=== PATIENT | female | born 1945 | race Caucasian/White ===

== ENCOUNTER 2016-11-30 21:35 | Inpatient (IN) | payer MEDICARE ==
[2016-11-30 21:52] VITALS: BMI 24.7
[2016-11-30 23:36] LABS: BASO # 0.03 K/mm3 (0.0-2.0); BASO % 0.8 % (0.0-3.0); EOS % 0.3 % (1.5-5.0); GRAN # 2.07 (1.4-6.5); GRAN % 55.6 % (50.0-68.0); HEMATOCRIT 41.3 % (36.0-48.0); LYMPH # 1.2 (1.2-3.4); MEAN CELL VOLUME 96.7 fl (80.0-105.0); MEAN CORPUSCULAR HGB CONC 35.1 g/dl (31.0-37.0); MEAN PLATELET VOLUME 10.7 fl (7.0-11.0); MONO # 0.4 (0.1-0.6); MONO % 11.3 % (1.0-6.0); RED CELL DISTRIBUTION WIDTH 13.4 % (11.5-14.5); WHITE BLOOD COUNT 3.7 10^3/ul (4.5-11.0)
[2016-11-30 23:41] LABS: ALB/GLOB RATIO 1.3 (1.1-1.8); ALKALINE PHOSPHATASE 135 U/L (38-126); ALT/SGPT 76 U/L (7-56); AST/SGOT 211 U/L (14-36); BILIRUBIN,TOTAL 1.1 mg/dL (0.2-1.3); BLOOD UREA NITROGEN 8 mg/dL (7-21); CALCIUM 8.5 mg/dL (8.4-10.5); CARBON DIOXIDE 30 mmol/L (21-33); CHLORIDE 89 mmol/L (98-107); GFR AFRICAN-AMERICAN > 60; GLUCOSE,RANDOM 98 mg/dL (70-110); LIPASE 136 U/L (23-300); POTASSIUM 4.1 mmol/L (3.6-5.0); SODIUM 131 mmol/L (132-148); TOTAL PROTEIN 7.5 g/dL (5.8-8.3)
[2016-11-30 23:58] LABS: TROPONIN I < 0.01 ng/mL
[2016-12-01] MEDS: Multivitamin (MVI) 10 ML, Thiamine 100 MG, Folic Acid 1 MG in Sodium Chloride 0.9% 1,00... IV ONE ×2 (00:50→06:47)
--- NOTE | 2016-12-01 00:52 | ED PDOC ---
Arrival/HPI - General Historian: Patient - History of Present Illness Time/Duration: 1 week Symptom Onset: Gradual Symptom Course: Unchanged Activities at Onset: Rest Context: Home - General Chief Complaint: Medical Clearance Time Seen by Provider: 11/30/16 22:08 - History of Present Illness Narrative History of Present Illness (Text): 12/01/16 22:10 Quin Sam is a 71 year old female who presents to the emergency department s/p cholecystectomy complaining of depression for 1 week. Patient states that she has a history of alcoholism in the past but stopped drinking when she drank so much that she developed the beginning stages of cirrhosis. Patient started drinking again everyday for a week and has not been eating. Patient reports hearing voices consisting of voices laughing at her. Patient adds that she experiences 1 week of epigastric pain with nausea as well as multiple episodes of diarrhea. Patient says that she thinks she saw blood during her bowel movements but is not entirely sure. Patient reports that she feels overall weak and anxious. Patient denies any suicidal ideation, homicidal ideation, chest pain, shortness of breath, fever, chills, vomiting, urinary symptoms, or any other complaint at this time. (Sacha JEFFERSON,Bonita Andersen) Past Medical History - Provider Review Nursing Documentation Reviewed: Yes - Cardiac Hx Hypertension: Yes - Pulmonary Hx Respiratory Disorders: No - HEENT Hx Glaucoma: Yes - Hematological/Oncological Hx Blood Transfusions: No - Musculoskeletal/Rheumatological Hx Falls: No Hx Unsteady Gait: Yes (R/T alcohol intake) - Gastrointestinal Hx Gastrointestinal Disorders: (colitis gastritis) - Psychiatric Hx Depression: Yes Hx Emotional Abuse: No Hx Physical Abuse: No Hx Substance Use: No - Surgical History Hx Cholecystectomy: Yes - Anesthesia Hx Anesthesia Reactions: No Hx Malignant Hyperthermia: No - Suicidal Assessment Feels Threatened In Home Enviroment: No Family/Social History - Physician Review Nursing Documentation Reviewed: Yes Family/Social History: No Known Family HX Smoking Status: Never Smoked Hx Alcohol Use: Yes Amount per day: 2 Hx Substance Use: No Substance used: ALCOHOL Hx Substance Use Treatment: No Allergies/Home Meds Allergies/Adverse Reactions: Allergies No Known Allergies Allergy (Verified 09/15/13 13:31) Home Medications: Home Meds Medication Instructions Recorded Confirmed Lisinopril/Hydrochlorothiazide 1 each PO DAILY 12/01/16 12/01/16 [Lisinopril-Hctz 20-12.5 mg Tab] Review of Systems - Physician Review All systems were reviewed & negative as marked: Yes - Review of Systems Constitutional: absent: Fevers, Night Sweats Eyes: absent: Vision Changes ENT: absent: Hearing Changes Respiratory: absent: SOB Cardiovascular: absent: Chest Pain Gastrointestinal: Abdominal Pain (epigastric) Genitourinary Female: absent: Dysuria Musculoskeletal: absent: Arthralgias Skin: absent: Rash Neurological: absent: Headache Endocrine: absent: Diaphoresis Hemo/Lymphatic: absent: Adenopathy Psychiatric: Depression Physical Exam Vital Signs Reviewed: Yes Temperature: Afebrile Blood Pressure: Normal Pulse: Tachycardic Respiratory Rate: Normal Appearance: Positive for: Other (Anxious, mildly distressed) Pain Distress: None Mental Status: Positive for: Alert and Oriented X 3 - Systems Exam Head: Present: Atraumatic, Normocephalic Mouth: Present: Dry Respiratory/Chest: Present: Clear to Auscultation, Good Air Exchange. No: Respiratory Distress, Accessory Muscle Use Cardiovascular: Present: Regular Rate and Rhythm, Normal S1, S2. No: Murmurs Abdomen: Present: Tenderness (mild epigastric tenderness ), Mass/Organomegaly ( hepatomegaly), Other Rectal: Present: Other (On rectal exam, brown stool was found but test was guiac positive) Upper Extremity: Present: Normal Inspection. No: Cyanosis, Edema Lower Extremity: Present: Normal Inspection. No: Edema Neurological: Present: GCS=15, CN II-XII Intact, Speech Normal Skin: Present: Warm, Dry, Normal Color. No: Rashes Psychiatric: Present: Alert, Oriented x 3, Normal Insight, Normal Concentration Vital Signs Temp Pulse Pulse Resp BP Pulse Ox 12/01/16 16:40 98.5 F 97 H 20 129/88 99 12/01/16 14:00 95 H 12/01/16 13:29 97.9 F 115 H 115 H 24 132/90 12/01/16 06:43 97.9 F 115 H 24 132/90 96 12/01/16 04:40 132 H 20 127/91 H 95 11/30/16 21:51 98.2 F 97 H 20 130/90 100 Medical Decision Making - Lab Interpretations I have reviewed the lab results: Yes ED Course and Treatment: 12/01/16 03:39 Patient cleared for discharged by PES. (Teofilo Rayo) 12/01/16 00:55 Impression: 71 year old female complaining of depression for one week with epigastric pain associated with N/V/D. Differential Diagnosis included but are not limited to: r/o colitis, diverticulitis, gastritis Plan: -- EKG -- Abdomen and Pelvis CT w. IV Contrast -- Chest X-ray -- Urinalysis -- Ativan, Zofran, and Protonix -- Reassess and disposition Prior Visits: Notes and results from previous visits were reviewed. Patient last seen in the ED on 09/15/13 for inability to blink left eye and a facial droop. Patient was admitted to hospitalist care for further evaluation. Progress Notes: CXR : NAD, as read by WENCESLAO EKG : NSR at 93 bpm, (-) acute ST changes, as read by PA. 12/01/16 02:30 On re-evaluation, pt feeling much better, with no abdominal pain, N/V, CP, or SOB. Abdomen is soft and nontender. No tremors. Medically cleared for PES. PES is evaluating the pt currently. Case endorsed to Dr. Rayo at 0200, pending PES evaluation. (Sacha JEFFERSON, Bonita Andersen) - Lab Interpretations Lab Results: 11/30/16 23:15 11/30/16 23:15 Lab Results 11/30/16 23:15: Alcohol, Quantitative 176 H 11/30/16 23:15: Sodium 131 L, Potassium 4.1, Chloride 89 L, Carbon Dioxide 30, Anion Gap 16, BUN 8, Creatinine 0.6, Est GFR ( Amer) > 60, Est GFR (Non- Af Amer) > 60, Random Glucose 98, Calcium 8.5, Total Bilirubin 1.1, AST 211 H, ALT 76 H, Alkaline Phosphatase 135 H, Troponin I < 0.01, Total Protein 7.5, Albumin 4.2, Globulin 3.3, Albumin/Globulin Ratio 1.3, Lipase 136 11/30/16 23:15: WBC 3.7 L D, RBC 4.27, Hgb 14.5, Hct 41.3, MCV 96.7, MCH 34.0, MCHC 35.1, RDW 13.4, Plt Count 96 L, MPV 10.7, Gran % 55.6, Lymph % (Auto) 32.0 , Real % (Auto) 11.3 H, Eos % (Auto) 0.3 L, Baso % (Auto) 0.8, Gran # 2.07, Lymph # 1.2, Real # 0.4, Eos # 0.0, Baso # 0.03 - RAD Interpretation Narrative RAD Interpretations (Text): 12/01/16 02:30 CT A/P: FINDINGS: Lower thorax: Heart size is normal. There is scarring at the lung bases. There is a hiatal hernia. ABDOMEN: Liver: There is fatty infiltration of the liver. Gallbladder and bile ducts: Gallbladder is absent. Common duct is prominent. Pancreas: unremarkable Spleen: unremarkable Adrenals: unremarkable Kidneys and ureters: unremarkable Stomach and bowel: Stomach is almost empty. Rotation is normal. There is no small bowel obstruction. Terminal ileum is unremarkable. Appendix is unremarkable. Colon is incompletely distended which limits evaluation. There is minimal diverticulosis Appendix: See stomach and bowel PELVIS: Bladder: unremarkable Reproductive: There is a large partially calcified uterine fibroid. ABDOMEN and PELVIS: Intraperitoneal space: There is no free air or free fluid. Bones/joints: There are degenerative changes in the osseus structures. Soft tissues: A small umbilical hernia Vasculature: Aorta is mildly tortuous.There are vascular calcifications. Lymph nodes: There is no pathologic adenopathy. IMPRESSION: Cholecystectomy; fatty liver, no acute solid visceral abnormality; no bleeding site identified; no CT findings of appendicitis or diverticulitis; fibroid uterus Additional findings as described above. Dictated and Authenticated by: Shana Garcia MD 12/01/2016 1:54 AM Eastern Time ([place] & [place]) (Sacha JEFFERSON,Bonita Andersen) Radiology Orders: 11/30/16 22:59 CHEST PORTABLE [RAD] Stat 11/30/16 23:45 ABD & PELVIS IV CONTRAST ONLY [CT] Stat - Medication Orders Current Medication Orders: Citalopram Hydrobromide (Celexa) 10 mg PO DAILY [facility] Folic Acid (Folic Acid) 1 mg PO DAILY [facility] Last Admin: 12/02/16 09:25 Dose: 1 mg Sodium Chloride (Sodium Chloride 0.9%) 1,000 mls @ 70 mls/hr IV .[id number] [facility] Last Admin: 12/02/16 00:58 Dose: 70 mls/hr Lorazepam (Ativan) 1 mg IVP Q4 [facility] PRN Reason: Protocol Multivitamins/Minerals (Therapeutic-M Tab) 1 tab PO 0800 [facility] Last Admin: 12/02/16 08:25 Dose: 1 tab Ondansetron HCl (Zofran Inj) 4 mg IVP Q6H PRN PRN Reason: Nausea/Vomiting Pantoprazole Sodium (Protonix Ec Tab) 40 mg PO ACB [facility] Last Admin: 12/02/16 08:25 Dose: 40 mg Thiamine HCl (Vitamin B1 Tab) 100 mg PO DAILY [facility] Last Admin: 12/02/16 09:25 Dose: 100 mg Discontinued Medications Chlordiazepoxide (Librium) 50 mg PO STAT STA PRN Reason: Protocol Stop: 12/01/16 04:39 Last Admin: 12/01/16 06:35 Dose: 50 mg Re-Assess: Reassess Psych Meds Document 12/01/16 07:35 MB (Rec: 12/01/16 19:49 [id number] Reassess Psych Med Effective Multivitamins/Vitamin C 10 ml/Thiamine HCl 100 mg/ Folic Acid 1 mg/ Sodium Chloride 1,011.2 mls @ 100 mls/hr IV ONCE ONE Stop: 12/01/16 09:05 Last Admin: 12/01/16 06:47 Dose: 100 mls/hr Sodium Chloride (Sodium Chloride 0.9%) 500 mls @ 999 mls/hr IV .Q31M STA Stop: 12/01/16 04:21 Last Admin: 12/01/16 05:45 Dose: 999 mls/hr Iohexol (Omnipaque 350 100 Ml) Confirm Administered Dose 350 mg .ROUTE .STK-MED ONE Stop: 12/01/16 00:56 Ketorolac Tromethamine (Toradol) 15 mg IVP STAT STA Stop: 12/02/16 04:33 Last Admin: 12/02/16 04:44 Dose: 15 mg Re-Assess: MAR Pain Assessment Document 12/02/16 05:44 MB (Rec: 12/02/16 06:16 [id number] Pain Reassessment Is this a pain reassessment? Yes Sleep Is patient sleeping during reassessment? Yes Lorazepam (Ativan) 1 mg IVP ONCE ONE PRN Reason: Protocol Stop: 12/01/16 00:05 Last Admin: 12/01/16 00:51 Dose: 1 mg Re-Assess: Reassess Psych Meds Document 12/01/16 01:21 MB (Rec: 12/01/16 19:47 MB [id number]) Reassess Psych Med Effective Lorazepam (Ativan) 1 mg IVP Q4 PRN; Protocol PRN Reason: Anxiety Last Admin: 12/01/16 16:10 Dose: 1 mg Re-Assess: Reassess Psych Meds Document 12/01/16 16:40 ML (Rec: 12/01/16 17:05 ML [id number]) Reassess Psych Med Effective Ondansetron HCl (Zofran Inj) 4 mg IVP STAT STA Stop: 11/30/16 23:02 Last Admin: 11/30/16 23:30 Dose: 4 mg Pantoprazole Sodium (Protonix Inj) 40 mg IVP STAT STA Stop: 11/30/16 23:02 Last Admin: 11/30/16 23:29 Dose: 40 mg Pantoprazole Sodium (Protonix Inj) 40 mg IVP STAT STA Stop: 12/02/16 04:33 Last Admin: 12/02/16 04:44 Dose: 40 mg Pneumococcal Polyvalent Vaccine (Pneumovax 23 Vaccine) 0.5 ml IM .ONCE ONE Stop: 12/01/16 13:44 - PA / TURBINE ATTENDANT / Resident Statement MD/ has reviewed & agrees with the documentation as recorded. - Scribe Statement The provider has reviewed the documentation as recorded by the Scribe - Scribe Statement Anais Hall Provider Scribe Attestation: All medical record entries made by the Scribe were at my direction and personally dictated by me. I have reviewed the chart and agree that the record accurately reflects my personal performance of the history, physical exam, medical decision making, and the department course for this patient. I have also personally directed, reviewed, and agree with the discharge instructions and disposition. (Sacha JEFFERSON,Bonita Andersen) Disposition/Present on Arrival - Present on Arrival Any Indicators Present on Arrival: No History of DVT/PE: No History of Uncontrolled Diabetes: No Urinary Catheter: No History of Decub. Ulcer: No History Surgical Site Infection Following: None - Disposition Have Diagnosis and Disposition been Completed?: Yes Disposition Time: 02:00 (Case endorsed to Dr. Rayo pending PES) - Disposition Diagnosis: Abdominal pain, Diarrhea, Depression, Alcohol abuse Patient Problems: Current Active Problems Problem Status Onset Abdominal pain Acute Alcohol abuse Acute Depression Acute Diarrhea Acute Condition: STABLE
[2016-12-01] MEDS ORDERED: Iohexol 350 MG/100 ML VIAL ONE (00:55)
--- NOTE | 2016-12-01 01:55 | CT ---
EXAM: CT Abdomen and Pelvis With Intravenous Contrast EXAM DATE/TIME: 11/30/2016 11:45 PM CLINICAL HISTORY: 71 years old, female; Pain; Abdominal pain; Generalized; Additional info: Pain, diarrhea, rectal bleed TECHNIQUE: Axial computed tomography images of the abdomen and pelvis with intravenous contrast. All CT scans at this facility use one or more dose reduction techniques, viz.: automated exposure control; ma/kV adjustment per patient size (including targeted exams where dose is matched to indication; i.e. head); or iterative reconstruction technique. Coronal and sagittal reformatted images were created and reviewed. CONTRAST: 96 mL of omni 350 administered intravenously. COMPARISON: Prior images are not available for review. Correlation is made with a report dated 12/06/11 FINDINGS: Lower thorax: Heart size is normal. There is scarring at the lung bases. There is a hiatal hernia. ABDOMEN: Liver: There is fatty infiltration of the liver. Gallbladder and bile ducts: Gallbladder is absent. Common duct is prominent. Pancreas: unremarkable Spleen: unremarkable Adrenals: unremarkable Kidneys and ureters: unremarkable Stomach and bowel: Stomach is almost empty. Rotation is normal. There is no small bowel obstruction. Terminal ileum is unremarkable. Appendix is unremarkable. Colon is incompletely distended which limits evaluation. There is minimal diverticulosis Appendix: See stomach and bowel PELVIS: Bladder: unremarkable Reproductive: There is a large partially calcified uterine fibroid. ABDOMEN and PELVIS: Intraperitoneal space: There is no free air or free fluid. Bones/joints: There are degenerative changes in the osseus structures. Soft tissues: A small umbilical hernia Vasculature: Aorta is mildly tortuous.There are vascular calcifications. Lymph nodes: There is no pathologic adenopathy. IMPRESSION: Cholecystectomy; fatty liver, no acute solid visceral abnormality; no bleeding site identified; no CT findings of appendicitis or diverticulitis; fibroid uterus Additional findings as described above.
[2016-12-01] MEDS: Sodium Chloride 0.9% 500 ML IV STA ×2 (05:45→19:56)
--- NOTE | 2016-12-01 10:41 | RAD ---
HISTORY: epigastric pain COMPARISON: 09/15/2016 FINDINGS: LUNGS: No active pulmonary disease. PLEURA: No pleural abnormalities are identified. CARDIOVASCULAR: Normal. OSSEOUS STRUCTURES: No significant abnormalities. VISUALIZED UPPER ABDOMEN: Normal. OTHER FINDINGS: None. IMPRESSION: No active disease. No significant interval change compared to the prior examination(s).
[2016-12-01] MEDS: Sodium Chloride 0.9% 1,000 ML IV SCH (10:45)
[2016-12-01] MEDS ORDERED: Pneumococcal 23-Valent Vaccine IM ONE (13:43)
--- NOTE | 2016-12-01 17:14 | HP ---
HISTORY OF PRESENT ILLNESS: This 71-year-old female was examined at her bedside. Her case was reviewed in detail with herself, co-consultants, and nursing. She presented to [facility] ER complaining of nausea, vomiting, and questionable blood in her stools associated with alcohol abuse, which is recurrent. She has a past medical history of alcoholism, depression, cirrhosis, and told the emergency room staff that she has been hearing voices and appeared psychotic in the emergency room on evaluation late last evening. The patient today has been tearful, anxious, and vomiting, but remained in her normal sinus rhythm on the gang rider. Consultations with psychiatry and gastroenterology regarding her psychosis, depression, and GI bleeding, as well as cirrhosis are pending at present. The patient remains n.p.o. except for meds. On review of the chart, the patient has a past medical history of alcohol abuse, depression, and cholecystectomy. ALLERGIES: DENIED ANY ALLERGIES TO MEDICATION OR PRESCRIPTION MEDICATION USAGE. REVIEW OF SYSTEMS: CONSTITUTIONAL: No fever, no chills. HEAD: No knowledge of stroke or seizure. EYE REVIEW: No change in visual acuity. EAR REVIEW: No hearing loss. THROAT REVIEW: No swallowing difficulty. NECK REVIEW: No stiffness. CARDIAC REVIEW: No chest pain, no palpitation. PULMONARY: No cough, no hemoptysis. GI: Nausea with vomiting with questionable blood per rectum. : No dysuria. SKIN: Without rash. VASCULAR: No claudication. PSYCHOLOGICAL: Recurrent depression and psychosis, alcohol abuse. ENDOCRINOLOGICAL: No knowledge of diabetes. PHYSICAL EXAMINATION GENERAL: The patient is in a cardiac rhythm on the gang rider denying any active chest pain at present. She is tearful and has recently vomited. VITAL SIGNS: Temperature was 97.9, respirations 24, pulse 97, and blood pressure 132/90 with a pulse ox of 96% on room air. HEENT: Head is normocephalic and atraumatic. Eyes: No icterus. Ears: Clear. Throat: Non-injected. NECK: Supple. HEART: Regular, S1 and S2. No pathological rubs, murmurs, or gallop. LUNGS: Clear to auscultation. ABDOMEN: Obese, nontender without palpable organomegaly. No rebound, no guarding, no tenderness. EXTREMITIES: No clubbing, no cyanosis, no edema. SKIN: Without rash. NEUROLOGICAL: Grossly intact. PSYCHOLOGICAL: Anxious and tearful. VASCULAR: Legs warm to touch. LABORATORY DATA: White count 3700, hemoglobin 14.5, hematocrit 41.3, and platelets 96,000. Sodium 131, K 4.1, chloride 89, bicarbonate 30, BUN 8, creatinine 0.6, random blood sugar was 98. Bilirubin 1.1, AST elevated at 211, ALT elevated at 76, and alkaline phosphatase 135. Troponin less than 0.01, lipase 136. Alcohol level was elevated at 176. Chest x-ray showed no active pulmonary disease. CT of the abdomen and pelvis confirmed cholecystectomy, showed fatty liver with no evidence of appendicitis or diverticulitis. A fibroid uterus was present. EKG reportedly showed normal sinus rhythm. IMPRESSION: A 71-year-old female with questionable gastrointestinal bleeding, nausea, vomiting, probable gastritis in the setting of alcohol abuse, history of recurrent depression and psychosis, history of fatty liver, and cirrhosis in her past, now with coagulopathy including leukopenia and thrombocytopenia, probably secondary to bone marrow suppression from alcohol abuse. PLAN: The plan at present is to maintain the patient on the cardiac unit. She will be kept n.p.o. except for medication and has been ordered to receive IV fluids and 0.9 saline. A hepatitis panel has been requested, as well as a comprehensive metabolic panel and CBC to be repeated in the a.m. Consultations with Dr. Fransisco Frank, gastroenterology regarding GI bleeding and coagulopathy with history of cirrhosis in her past has been requested, as well as a consultation with Dr. Pam Mathews from psychiatry regarding the patient's history of recurrent depression and alcohol abuse and misuse. The patient will be continued on Ativan 1 mg IV q.4 h. p.r.n. alcohol withdrawal. She is ordered to receive folic acid 1 mg daily, Protonix 40 mg daily, multivitamin one tablet daily, thiamine 100 mg p.o. daily, and Zofran 4 mg IV q.6 h. p.r.n. nausea and vomiting. She is ordered to have sequential compression device, antiembolism stockings. I have discussed with her nurse to get the patient out of bed, have her evaluated from physical therapy, and to encourage deep breathing. She remains on fall and aspiration precautions. All the above was discussed in detail with the patient, nursing, co-consultants, and greater than 1 hour was spent in the care, management, and discussion of this patient's care today. Maricarmen Cabrera MD [facility]
--- NOTE | 2016-12-01 20:57 | CARD ---
APPROVED REPORT EKG Measurement Heart [id number] <Conclusion> Normal sinus rhythm Normal ECG
[2016-12-02] MEDS: Sodium Chloride 0.9% 1,000 ML IV SCH ×2 (00:58→22:35)
--- NOTE | 2016-12-02 04:21 | CP.PCM.PN ---
Subjective - Date & Time of Evaluation Date of Evaluation: 12/02/16 Time of Evaluation: 04:20 - Subjective Subjective: Patient was seen at bedside. She complained of RUQ pain. Pain is radiating to back and also up towards her throat. Pain was present earlier in the day time when Ativan was given to her. Has nausea also. States that she has diarrhoea also. Has no other complaints. ROS:Negative except as mentioned above. Medical record was reviewed. 71 year old woman was admitted with nausea, vomiting, questionable blood in the stool,hallucination, psychosis,coagulopathy, leukopenia, thrombocytopenia. Has PMH of, Alcoholism,Depression,Cirrhosis,Glaucoma,Cholecystectomy. Objective - Vital Signs/Intake and Output Vital Signs (last 24 hours): Temp Pulse Resp BP Pulse Ox 98.5 F 102 H 20 129/88 99 12/01/16 16:40 12/02/16 02:00 12/01/16 16:40 12/01/16 16:40 12/01/16 16:40 Intake and Output: 12/01/16 12/02/16 18:59 06:59 Intake Total 120 Balance 120 - Medications Medications: Current Medications Folic Acid (Folic Acid) 1 mg PO DAILY [facility] Sodium Chloride (Sodium Chloride 0.9%) 1,000 mls @ 70 mls/hr IV .[id number] [facility] Last Admin: 12/02/16 00:58 Dose: 70 mls/hr Lorazepam (Ativan) 1 mg IVP Q4 PRN; Protocol PRN Reason: Anxiety Last Admin: 12/01/16 16:10 Dose: 1 mg Multivitamins/Minerals (Therapeutic-M Tab) 1 tab PO 0800 [facility] Ondansetron HCl (Zofran Inj) 4 mg IVP Q6H PRN PRN Reason: Nausea/Vomiting Pantoprazole Sodium (Protonix Ec Tab) 40 mg PO ACB [facility] Thiamine HCl (Vitamin B1 Tab) 100 mg PO DAILY [facility] - Labs Labs: Laboratory Last Values WBC 3.7 10^3/ul (4.5-11.0) L D 11/30/16 23:15 RBC 4.27 10^6/uL (3.5-6.1) 11/30/16 23:15 Hgb 14.5 g/dL (12.0-16.0) 11/30/16 23:15 Hct 41.3 % (36.0-48.0) 11/30/16 23:15 MCV 96.7 fl (80.0-105.0) 11/30/16 23:15 MCH 34.0 pg (25.0-35.0) 11/30/16 23:15 MCHC 35.1 g/dl (31.0-37.0) 11/30/16 23:15 RDW 13.4 % (11.5-14.5) 11/30/16 23:15 Plt Count 96 10^3/uL (120.0-450.0) L 11/30/16 23:15 MPV 10.7 fl (7.0-11.0) 11/30/16 23:15 Gran % 55.6 % (50.0-68.0) 11/30/16 23:15 Lymph % (Auto) 32.0 % (22.0-35.0) 11/30/16 23:15 Morrison % (Auto) 11.3 % (1.0-6.0) H 11/30/16 23:15 Eos % (Auto) 0.3 % (1.5-5.0) L 11/30/16 23:15 Baso % (Auto) 0.8 % (0.0-3.0) 11/30/16 23:15 Gran # 2.07 (1.4-6.5) 11/30/16 23:15 Lymph # 1.2 (1.2-3.4) 11/30/16 23:15 Morrison # 0.4 (0.1-0.6) 11/30/16 23:15 Eos # 0.0 (0.0-0.7) 11/30/16 23:15 Baso # 0.03 K/mm3 (0.0-2.0) 11/30/16 23:15 Sodium 131 mmol/L (132-148) L 11/30/16 23:15 Potassium 4.1 mmol/L (3.6-5.0) 11/30/16 23:15 Chloride 89 mmol/L (98-107) L 11/30/16 23:15 Carbon Dioxide 30 mmol/L (21-33) 11/30/16 23:15 Anion Gap 16 (10-20) 09/07/17 23:15 BUN 8 mg/dL (7-21) 11/30/16 23:15 Creatinine 0.6 mg/dL (0.5-1.4) 11/30/16 23:15 Est GFR ( Amer) > 60 11/30/16 23:15 Est GFR (Non-Af Amer) > 60 11/30/16 23:15 Random Glucose 98 mg/dL (70-110) 11/30/16 23:15 Calcium 8.5 mg/dL (8.4-10.5) 11/30/16 23:15 Total Bilirubin 1.1 mg/dL (0.2-1.3) 11/30/16 23:15 AST 211 U/L (14-36) H 11/30/16 23:15 ALT 76 U/L (7-56) H 11/30/16 23:15 Alkaline Phosphatase 135 U/L (38-126) H 11/30/16 23:15 Troponin I < 0.01 ng/mL 11/30/16 23:15 Total Protein 7.5 g/dL (5.8-8.3) 11/30/16 23:15 Albumin 4.2 g/dL (3.0-4.8) 11/30/16 23:15 Globulin 3.3 gm/dL 11/30/16 23:15 Albumin/Globulin Ratio 1.3 (1.1-1.8) 11/30/16 23:15 Lipase 136 U/L (23-300) 11/30/16 23:15 Alcohol, Quantitative 176 mg/dL (0-10) H 11/30/16 23:15 - Constitutional Appears: Well, No Acute Distress - Head Exam Head Exam: ATRAUMATIC, NORMAL INSPECTION, NORMOCEPHALIC - Eye Exam Eye Exam: Normal appearance - ENT Exam ENT Exam: Mucous Membranes Moist - Neck Exam Neck Exam: Normal Inspection - Respiratory Exam Respiratory Exam: NORMAL BREATHING PATTERN - Cardiovascular Exam Cardiovascular Exam: absent: JVD - GI/Abdominal Exam GI & Abdominal Exam: Tenderness (Mild RUQ.), Normal Bowel Sounds. absent: Distended, Guarding, Soft, Mass, Organomegaly, Pulsatile Mass, Rebound - Rectal Exam Rectal Exam: Deferred - Exam Additional comments: Deferred. - Extremities Exam Extremities Exam: Normal Inspection - Back Exam Back Exam: NORMAL INSPECTION - Neurological Exam Neurological Exam: Alert, Awake, Oriented x3 - Psychiatric Exam Psychiatric exam: Normal Affect, Normal Mood - Skin Skin Exam: Normal Color Assessment and Plan - Assessment and Plan (Free Text) Assessment: RUQ pain. Nausea. Alcoholic hepatitis. Elevated LFT's. Depression. Psychosis. Thrombocytopenia. Alcohol intoxication. Plan: Toradol 15 mg IV stat. Protonix 40 mg IV stat. Continue present management as per PMD.
[2016-12-02 07:24] LABS: HEMATOCRIT 35.2 % (36.0-48.0); MEAN PLATELET VOLUME 10.8 fl (7.0-11.0); RED CELL DISTRIBUTION WIDTH 13.6 % (11.5-14.5)
[2016-12-02 07:43] LABS: ALB/GLOB RATIO 1.1 (1.1-1.8); ALKALINE PHOSPHATASE 96 U/L (38-126); ALT/SGPT 61 U/L (7-56); AST/SGOT 112 U/L (14-36); BILIRUBIN,TOTAL 1.3 mg/dL (0.2-1.3); BLOOD UREA NITROGEN 10 mg/dL (7-21); CALCIUM 7.4 mg/dL (8.4-10.5); CARBON DIOXIDE 32 mmol/L (21-33); CHLORIDE 98 mmol/L (98-107); GFR AFRICAN-AMERICAN > 60; GLUCOSE,RANDOM 87 mg/dL (70-110); POTASSIUM 3.4 mmol/L (3.6-5.0); SODIUM 134 mmol/L (132-148)
[2016-12-02] MEDS: Pantoprazole 40 mg EC Tab PO SCH ×2 (08:22→08:25)
[2016-12-02] MEDS: Multivitamin With Minerals Tab PO SCH ×2 (08:22→08:25)
[2016-12-02] MEDS ORDERED: Potassium Chloride 40 mEq/30 ml LIQ UD PO ONE (13:02)
[2016-12-02] MEDS ORDERED: Potassium Chloride 20 mEq ER Tab PO ONE (13:17)
--- NOTE | 2016-12-02 22:19 | CON ---
DATE: 12/02/2016 HISTORY OF PRESENT ILLNESS: The patient is a 71-year-old [place] female who admitted to the medical floor in alcohol withdrawal with complaints of nausea, vomiting and questionable blood in her stools. The patient appeared psychotic in emergency room and reported she was hearing voices. Psychiatry was consulted due to the patient's depression and alcohol use. I met with the patient at bedside and utilized a services host, Margot Miles for Icelandic translation. The patient is alert and oriented to location, month, and year. Readily admits that she has been drinking vodka at least 2 bottles daily. Denied any drug use. Last use of vodka was reportedly last week. She indicates that she has been depressed because of stressors including issues with her and her son and she vegetates indoors; however, she is not suicidal or hopeless. The patient indicates she started drinking about a month ago due to reported stressors and it has been worse since. regarding her hallucinations, these started recently and she indicates that she has auditory hallucinations of people laughing at her, last occurrence was today. The patient's focus is fair during the course of our conversation. Her responses are relevant and delusions were not elicited during our discussion. Regarding depression, the patient reports that she is willing to start an antidepressant that she took many years ago for depression and found it beneficial. She also report anxiety which she feels alcohol helps with. Regarding treatment, she is interested in outpatient follow up; however, she is also interested in transfer to inpatient unit as she continues to feel depressed. She should be very open to the possibility of psychiatric hospitalization once she is medically cleared. PAST PSYCHIATRIC HISTORY: The patient denies any prior psychiatric admissions. No current psychiatric outpatient treatment. No history of suicide attempts. The patient reports that many years ago she used to take an antidepressant and found it beneficial. SOCIAL HISTORY: The patient was born and raised in [place]. She is . She lives with her . She reports current issues with her and her son. She has one son who lives in [place]. She has a history of alcohol dependency. She had been clean for 5 years when her mom . She decided to become sober; however, she started drinking again approximately a month ago due to ongoing issues with her and her son. The patient denies any history of drug use. LABORATORY DATA: Laboratory work was reviewed by this provider. PHYSICAL EXAMINATION VITAL SIGNS: Reviewed by this provider at 9:50 a.m., they are temperature 97.9, blood pressure 134/73, pulse 85 with a respiratory rate of 18. MEDICATIONS: Relevant psychiatric medications, the patient is taking Ativan 1 mg IV q.4 p.r.n. IMPRESSION: Alcohol dependency, severe; alcohol withdrawal; delirium. The patient is currently suffering from delirium tremens as evidenced by her hallucinations and at presentation, major depression by history, substance induced mood disorder as well as the contribution of adjustment disorder with mixed depression and anxiety. RECOMMENDATIONS: At this time, I will start Celexa 10 mg in the morning for depression and anxiety. The patient was informed about therapeutic latency of this medication. I have also changed Ativan to 1 mg IV q.4 scheduled with hold parameters of systolic blood pressure less than 100. Medical team should continue tapering the patient off of Ativan, given as her vitals tolerate this. Psychiatry will continue to follow the patient every 2 days to monitor her mood and hallucinations. She is open to being transferred to psychiatric unit once she is medically cleared; however, she continues to be hallucinating and this appears to be secondary to her abruptly stopping vodka recently and so she is still in DTs and not medically stabilized as of yet. If she required psychiatry follow up earlier in 2-3 days please call and we will be happy to follow up frequently. Mark Cabrera MD
--- NOTE | 2016-12-03 00:14 | PN ---
DATE: 12/02/2016 HISTORY OF PRESENT ILLNESS: This 71-year-old female was examined at her bedside. Her case is reviewed in detail with herself, nursing and her co- consultants. She remains in a normal sinus rhythm on the monitor. She was admitted with alcoholic gastritis, nausea, vomiting and inability to hold down food or fluids. At present, she is requesting to have her diet advanced to liquids and remains tearful and anxious. She was seen earlier by Psychiatry, was recommended p.r.n. Ativan for alcohol withdrawal and she denies any complaints of suicidal ideation at present. She denied any fever or chills and there have been no reports of hematemesis or melena. PHYSICAL EXAMINATION: VITAL SIGNS: Temperature is 97.9, respirations 18, pulse 85, and blood pressure 134/73 with a pulse ox of 98% on room air. HEENT: Head is normocephalic and atraumatic. Eyes: No icterus. Ears: Clear. Throat: Non-injected. NECK: Supple. HEART: Regular, S1 and S2. No pathological rubs, murmurs, or gallop. LUNGS: Clear to auscultation. ABDOMEN: Obese, nontender. There is no palpable organomegaly. No rebound, no guarding, no tenderness. EXTREMITIES: Show no clubbing, no cyanosis, no edema. SKIN: Without rash. NEUROLOGICAL: Unchanged. PSYCHOLOGICAL: She is alert and tearful and anxious. VASCULAR: Legs warm to touch. LABORATORY DATA: White count 3000, hemoglobin 11.6, hematocrit 35.2, and platelets 72,000. Sodium 134, K 3.4, chloride 98, bicarbonate 32, BUN 10, creatinine 0.5, random blood sugar was 87. Bilirubin 1.3, AST 112, ALT 61, and alkaline phosphatase 96, lipase 136, normal. Alcohol level on admission elevated at 176. IMPRESSION: A 71-year-old female with history of anxiety, recurrent depression, alcoholism, alcohol abuse and misuse, history of cirrhosis, now with recurrent depression, pancytopenia probably on the basis of bone marrow toxicity secondary to alcohol abuse, hypokalemia secondary to vomiting, alcoholic gastritis. PLAN: The plan is to maintain the patient on the cardiac unit while awaiting Gastroenterology evaluation of gastritis, cirrhosis, elevated liver function testing and reports of blood per rectum also with history of recurrent anxiety and depression and history of alcoholism, need for psychiatric intervention and probable transfer to the psychiatric unit when medically cleared. The plan at present is to maintain the patient on the cardiac unit. She remains on aspiration and fall precautions and she will have her diet advanced to clear liquids. She is awaiting physical therapy for ambulation safety and has been ordered to be out-of-bed with assistance and wearing antiembolism stockings while in bed. She is ordered to receive Zofran 4 mg IV q. 6 hours p.r.n. nausea, vomiting, thiamine 100 mg p.o. daily, multivitamin 1 tablet daily, 0.9 saline at 70 mL per hour, Protonix 40 mg p.o. daily, potassium 40 mEq p.o. x1 dose, folic acid 1 mg p.o. daily, Celexa 10 mg p.o. daily, and Ativan 1 mg IV q. 4 hours p.r.n. anxiety or alcohol withdrawal. She is awaiting hepatitis panel results, comprehensive metabolic panel and CBC has been ordered for the morning. She will be monitored closely on the cardiac unit. Overall prognosis remains poor but stable at present. Greater than fifty minutes were spent in the care, management, and discussion of this patient today with herself, nursing, and co-consultants. Maricarmen Cabrera MD MTDD
[2016-12-03] MEDS: Sodium Chloride 0.9% 1,000 ML IV SCH (05:25)
[2016-12-03] MEDS: Multivitamin With Minerals Tab PO SCH (09:27)
[2016-12-03] MEDS: Pantoprazole 40 mg EC Tab PO SCH (09:27)
--- NOTE | 2016-12-03 10:24 | CON ---
DATE: 12/02/2016 HISTORY OF PRESENT ILLNESS: This patient was seen and evaluated earlier. No complaints of any abdominal pain, tolerating the diet. PHYSICAL EXAMINATION: VITAL SIGNS: Temperature 98.4, blood pressure 144/93, respirations 20, O2 saturations 100%. HEENT: Atraumatic, anicteric. NECK: Supple. HEART: S1 and S2 heard. LUNGS: Bilateral air entry present. ABDOMEN: Soft. There is no tenderness. EXTREMITIES: No edema. No cyanosis. LABORATORY DATA: Hemoglobin 11.6, hematocrit 35.2, WBC 3.0, platelets 72. Chemistry shows potassium is 3.4, AST 112, ALT 61. Hepatitis serology only total A is positive, otherwise, unremarkable. The patient did have a CT scan of the abdomen and pelvis done, which showed nothing abnormal status post cholecystectomy, fatty liver, and small umbilical hernia otherwise unremarkable. IMPRESSION: 1. This 71-year-old patient with a long history of ETOH, alcohol use, admitted with history of alcohol withdrawal, questionable blood in the stool, history of depression, now has a delirium impending delirium tremens, questionable bleeding per rectum. No further episodes noticed since admission. 2. The patient is also pancytopenic. The hemoglobin has decreased from 14.5 to 11.6 and the patient's albumin has also gone down from 4.2 to 3.2. The patient has been getting IV fluids. Anemia with a drop in blood count could be due to partially hemodilution rather than bleeding. The patient's MCV is elevated to 100. The patient's B12 is borderline low 279, low normal, would request. The etiology of the pancytopenia is unclear. It could be related to alcohol induced. The patient is also on Protonix. RECOMMENDATIONS: 1. Follow up of the hemoglobin, hematocrit, and also platelet count. 2. We would request for reticulocyte count. 3. We would request iron studies. The patient may benefit from elective colonoscopic evaluation. The patient did have a status post cholecystectomy. Had liver biopsy done [place] [address] Quijano. Pathology reports reviewed, it showed only fatty liver. No cirrhosis noticed at that time. We will continue to closely follow up her care and suggest further management based on the clinical course. Kovil Zac, MD [facility] # [id number]
[2016-12-03 12:48] LABS: BASO # 0.02 K/mm3 (0.0-2.0); BASO % 0.5 % (0.0-3.0); EOS # 0.2 (0.0-0.7); EOS % 5.3 % (1.5-5.0); GRAN # 2.09 (1.4-6.5); GRAN % 55.3 % (50.0-68.0); HEMATOCRIT 37.3 % (36.0-48.0); LYMPH # 1.1 (1.2-3.4); LYMPH % 29.6 % (22.0-35.0); MEAN CELL VOLUME 100.3 fl (80.0-105.0); MEAN CORPUSCULAR HEMOGLOBIN 33.6 pg (25.0-35.0); MEAN CORPUSCULAR HGB CONC 33.5 g/dl (31.0-37.0); MEAN PLATELET VOLUME 10.3 fl (7.0-11.0); MONO # 0.4 (0.1-0.6); MONO % 9.3 % (1.0-6.0); WHITE BLOOD COUNT 3.8 10^3/ul (4.5-11.0)
[2016-12-03 13:13] LABS: ALB/GLOB RATIO 1.1 (1.1-1.8); ALKALINE PHOSPHATASE 103 U/L (38-126); ALT/SGPT 64 U/L (7-56); AST/SGOT 106 U/L (14-36); BILIRUBIN,TOTAL 1.1 mg/dL (0.2-1.3); BLOOD UREA NITROGEN 8 mg/dL (7-21); CARBON DIOXIDE 28 mmol/L (21-33); CHLORIDE 101 mmol/L (98-107); GFR AFRICAN-AMERICAN > 60; GLUCOSE,RANDOM 143 mg/dL (70-110); POTASSIUM 3.7 mmol/L (3.6-5.0); SODIUM 135 mmol/L (132-148); TOTAL PROTEIN 6.6 g/dL (5.8-8.3)
--- NOTE | 2016-12-03 17:31 | PN ---
DATE: 12/03/2016 SUBJECTIVE: This 71-year-old female was examined at her bedside. Her case was reviewed with herself, nursing, and co-consultants. She has an episode of nausea with clear vomitus earlier today and was medicated with Zofran. The patient remains hospitalized for alcoholic gastroenteritis, history of alcohol abuse and misuse, anxiety, recurrent depression and history of fatty liver and questionable alcohol cirrhosis in her past. At present, she is on IV fluids, clear liquid diet and still remains tearful, anxious, and nauseated. PHYSICAL EXAMINATION VITAL SIGNS: On cardiac care unit nurse, she is in the normal sinus rhythm. Her temperature is 98.5, respirations 22, pulse 86, and blood pressure 142/96 with a pulse ox of 99% on room air. HEENT: Head is normocephalic and atraumatic. Eyes: No icterus. NECK: Supple. HEART: Regular, S1 and S2. No pathological rubs, murmurs, or gallop. LUNGS: Clear to auscultation. ABDOMEN: Obese, nontender. There is no palpable organomegaly. No rebound, no guarding, no tenderness. EXTREMITIES: No clubbing, no cyanosis, no edema. SKIN: Without rash. NEUROLOGICAL: Unchanged. PSYCHOLOGICAL: Alert, anxious, and depressed. VASCULAR: Legs warm to touch. LABORATORY DATA: White count 3800, hemoglobin 12.5, hematocrit 37.3, and platelets 81,000. Sodium 135, potassium 3.7, chloride 101, bicarbonate 28, BUN 8, creatinine 0.5, random blood sugar was 143. Bilirubin 1.1; AST 106, formally 211; ALT 64, formally 76 and alkaline phosphatase 103 normal, formally 135. Troponin less than 0.01. Lipase normal 136. Alcohol level on admission 176. IMPRESSION: This is a 71-year-old female with alcohol abuse and misuse, admitted with alcoholic gastritis, gastroenteritis, anxiety, recurrent depression, history of fatty liver and cirrhosis in her past with leukopenia and thrombocytopenia probably secondary to alcohol toxicity and hypokalemia now improved with potassium supplementation as well as recent clinical dehydration for which she is receiving 0.9 saline and a clear liquid diet. PLAN: Plan at present is to continue clear liquid as able, Zofran 4 mg IV q.6 hours p.r.n., nausea and vomiting, thiamine 100 mg p.o. daily, folic acid 1 mg p.o. daily, multivitamin 1 tablet p.o. daily, 0.9 saline at 70 mL per hour, Pepcid 40 mg p.o. at bedtime, Celexa 10 mg p.o. daily and Ativan 1 mg IV q.6 hours p.r.n. alcohol withdrawal. The patient continues on aspiration and fall precautions. She has order to receive physical therapy for ambulation safety. She is being followed by psychiatry because of his alcohol abuse and recurrent depression and is being followed by gastroenterology because of a history of GI bleeding, coagulopathy and fatty liver and cirrhosis with elevated liver function testing. Ammonia level has been ordered and hepatitis panel has been received but not reported and all of the above was discussed in detail with the patient, nursing and co-consultants. Greater than fifty minutes was spent in the care and management and discussion of this patient today. Maricarmen Cabrera MD MTDD
--- NOTE | 2016-12-03 23:27 | PN ---
DATE: 12/03/2016 SUBJECTIVE: This patient was seen and evaluated earlier today. Discussed with nursing staff. The patient is tolerating the diet. PHYSICAL EXAMINATION VITAL SIGNS: On examination, temperature is 98.5, blood pressure 142/96, pulse is 86, respiration is 22. HEENT: Atraumatic, anicteric. NECK: Supple. HEART: S1 and S2 heard. LUNGS: Bilateral air entry present. ABDOMEN: Soft. RECTAL: Reveled an empty rectum. No blood present. LABORATORY DATA: WBC is 3.8, hemoglobin 12.5, hematocrit 37.3, MCV 100.3, platelets 81. Chemistry showed total bilirubin come down to 1.1, AST 106, ALT 64. IMPRESSION: 1. This 71-year-old patient with long history of EtOH; alcohol use; admitted with history of alcohol withdrawal; questionable blood in the stool; history of depression; impending delirium, improving; has questionable bleeding per rectum; no further episodes of bleeding noticed. The patient had a rectal examination showed empty rectum. 2. The patient is a pancytopenic, history of probable chronic liver disease. The patient did have a liver biopsy done. It is a fatty liver disease. It was done in 2 years ago, when she had a cholecystectomy done. The patient's pancytopenia possibly could be related to the alcohol. The patient's hemoglobin now slightly gone up to 12.5. LFTs showed a downward trend. Would recommend slowly advancing the diet. Ammonia level has been ordered. It is now normal 11. The patient is on Pepcid 40 mg, continue that. The patient would benefit from elective colonoscopic evaluation. We will continue closely. Thank you very much for allowing me to the participate in the care of the patient. Fransisco Frank MD
[2016-12-04] MEDS: Multivitamin With Minerals Tab PO SCH (09:03)
--- NOTE | 2016-12-04 13:52 | CP.PCM.PN ---
<Carmel Toro - Last Filed: 12/04/16 13:50> Subjective - Date & Time of Evaluation Date of Evaluation: 12/04/16 Time of Evaluation: 10:10 - Subjective Subjective: Seen and examined at the bedside earlier today, chart was reviewed. Patient is asleep but easily arousable, no acute overnight events reported. No acute distress. No reports of overt GI bleed. Objective - Vital Signs/Intake and Output Vital Signs (last 24 hours): Temp Pulse Resp BP Pulse Ox 98.4 F 95 H 21 136/94 H 97 12/04/16 08:37 12/04/16 08:37 12/04/16 08:37 12/04/16 08:37 12/04/16 08:37 Intake and Output: 12/04/16 12/04/16 06:59 18:59 Intake Total 540 Balance 540 - Medications Medications: Current Medications Citalopram Hydrobromide (Celexa) 10 mg PO DAILY [facility] Last Admin: 12/04/16 09:04 Dose: 10 mg Famotidine (Pepcid) 40 mg PO HS [facility] Last Admin: 12/03/16 21:45 Dose: 40 mg Folic Acid (Folic Acid) 1 mg PO DAILY [facility] Last Admin: 12/04/16 09:04 Dose: 1 mg Sodium Chloride (Sodium Chloride 0.9%) 1,000 mls @ 70 mls/hr IV .[id number] [facility] Last Admin: 12/03/16 05:25 Dose: Not Given Lorazepam (Ativan) 1 mg IVP Q6 [facility] PRN Reason: Protocol Last Admin: 12/04/16 05:32 Dose: 1 mg Multivitamins/Minerals (Therapeutic-M Tab) 1 tab PO 0800 [facility] Last Admin: 12/04/16 09:03 Dose: 1 tab Ondansetron HCl (Zofran Inj) 4 mg IVP Q6H PRN PRN Reason: Nausea/Vomiting Last Admin: 12/03/16 06:10 Dose: 4 mg Thiamine HCl (Vitamin B1 Tab) 100 mg PO DAILY [facility] Last Admin: 12/04/16 09:04 Dose: 100 mg - Labs Labs: 12/03/16 12:40 12/03/16 12:40 - Constitutional Appears: No Acute Distress - Eye Exam Eye Exam: Normal appearance. absent: Scleral icterus - ENT Exam ENT Exam: Mucous Membranes Moist - Neck Exam Neck Exam: Normal Inspection - Respiratory Exam Respiratory Exam: NORMAL BREATHING PATTERN. absent: Respiratory Distress - Cardiovascular Exam Cardiovascular Exam: +S1 - GI/Abdominal Exam GI & Abdominal Exam: Soft, Normal Bowel Sounds. absent: Guarding, Tenderness, Rebound - Neurological Exam Neurological Exam: Alert, Awake, Oriented x3 - Skin Skin Exam: Dry, Warm Assessment and Plan - Assessment and Plan (Free Text) Assessment: Assessment: Episode of blood per rectum, negative rectal exam History of EtOH, alcohol withdrawal Depression Pancytopenia Elevated LFTs, improving Plan: Diet as tolerated Monitor H&H and for overt GI bleed Trend LFTs Continue Pepcid On folic acid and Thiamine Patient would benefit from elective colonoscopy Seen and discussed with Dr. Frank <Fransisco Frank V - Last Filed: 12/04/16 23:17> Objective - Vital Signs/Intake and Output Vital Signs (last 24 hours): Temp Pulse Resp BP Pulse Ox 98.2 F 91 H 20 135/86 99 12/04/16 16:00 12/04/16 16:00 12/04/16 16:00 12/04/16 16:00 12/04/16 16:00 Intake and Output: 12/04/16 12/05/16 18:59 06:59 Intake Total 540 Balance 540 - Medications Medications: Current Medications Citalopram Hydrobromide (Celexa) 10 mg PO DAILY [facility] Last Admin: 12/04/16 09:04 Dose: 10 mg Famotidine (Pepcid) 40 mg PO HS [facility] Last Admin: 12/04/16 21:31 Dose: 40 mg Folic Acid (Folic Acid) 1 mg PO DAILY [facility] Last Admin: 12/04/16 09:04 Dose: 1 mg Sodium Chloride (Sodium Chloride 0.9%) 1,000 mls @ 70 mls/hr IV .[id number] [facility] Last Admin: 12/03/16 05:25 Dose: Not Given Lorazepam (Ativan) 1 mg IVP Q6 [facility] PRN Reason: Protocol Last Admin: 12/04/16 18:14 Dose: 1 mg Multivitamins/Minerals (Therapeutic-M Tab) 1 tab PO 0800 [facility] Last Admin: 12/04/16 09:03 Dose: 1 tab Ondansetron HCl (Zofran Inj) 4 mg IVP Q6H PRN PRN Reason: Nausea/Vomiting Last Admin: 12/03/16 06:10 Dose: 4 mg Thiamine HCl (Vitamin B1 Tab) 100 mg PO DAILY [facility] Last Admin: 12/04/16 09:04 Dose: 100 mg - Labs Labs: 12/03/16 12:40 12/03/16 12:40 Attending/Attestation - Attestation I have personally seen and examined this patient.: Yes I have fully participated in the care of the patient.: Yes I have reviewed all pertinent clinical information, including history, physical exam and plan: Yes Notes (Text): This is an addendum to the GI progress report dictated by Carmel Toro APN.. This patient was seen and evaluated earlier. Abdomen soft no masses no tenderness. Cirrhosis of the liver pancytopenia History of bleeding per rectum no further episodes since admission Status post cholecystectomy status post liver biopsy at that time report was reviewed in [facility] History of EtOH impending DTs improving Thank you very much for allowing us to participate in the care of the patient 12/04/16 23:15
--- NOTE | 2016-12-04 15:05 | PN ---
DATE: 12/04/2016 SUBJECTIVE: This 71-year-old female was examined at her bedside. Her case was reviewed in detail with her nurse Linda Adams and her family at the bedside. The patient remains hospitalized. She is anxious, tearful, and clinically depressed in the setting of recurrent alcohol abuse and alcoholic gastritis and gastroenteritis. The patient continues to remained weak and deconditioned. She complains of abdominal discomfort when she eats but is tolerating clear liquids and is receiving Zofran p.r.n. nausea. There have been no reports of hematemesis or melena, fever or chills, nor hemoptysis. PHYSICAL EXAMINATION VITAL SIGNS: She is in the normal sinus rhythm on the property assessment monitor with the temperature is 98.4, respirations 21, pulse 95, blood pressure 136/94, and pulse ox of 97% on room air. HEENT: Head is normocephalic and atraumatic. Eyes: No icterus. Ears: Clear. Throat: Non-injected. NECK: Supple. HEART: Regular, S1 and S2. No pathological rubs, murmurs, or gallop. LUNGS: Clear to auscultation. ABDOMEN: Obese, nontender without palpable organomegaly. No rebound, no guarding, no tenderness. EXTREMITIES: No clubbing, no cyanosis, no edema. SKIN: Without rash. NEUROLOGICAL: Grossly intact. PSYCHOLOGICAL: Anxious and tearful. VASCULAR: Legs warm to touch. LABORATORY DATA: White count 3800, hemoglobin 12.5, hematocrit 37.3, and platelets 81,000. Sodium 135, potassium 3.7, chloride 101, bicarbonate 28, BUN 8, creatinine 0.5, random blood sugar was 143. Bilirubin 1.1; AST 106, previously 211; ALT 64, previously 76 and alkaline phosphatase 103 normal, previously 135. Ammonia level normal 11. Lipase 136. Admission alcohol level 176 elevated and hepatitis ABC panel is negative. 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 PLAN: Plan at present is to continue Ativan 1 mg IV q.6 hours p.r.n. anxiety. She is continuing on Celexa 10 mg p.o. daily, folic acid 1 mg p.o. daily, Pepcid 40 mg p.o. at bedtime, 0.9 saline at 70 mL per hour, multivitamin 1 tablet daily, thiamine 100 mg p.o. daily, and Zofran 4 mg IV q.6 hours p.r.n. nausea and vomiting. She continues on fall and aspiration precautions and she has been ordered to be out of bed to chair with transportation assistant and have physical therapy evaluate for her ambulation safety. Her clear liquids will be advanced to full liquid as tolerated. She is ordered to have a abdominal ultrasound to further evaluate her liver and case was reviewed in detail with herself, nursing, complaints of-consultants and family. Approximately fifty minutes was spent in the care, management and discussion and ordering of medication and treatment for this patient today. Maricarmen Cabrera MD MTDD
[2016-12-04 17:49] VITALS: RESP 20
--- NOTE | 2016-12-04 22:58 | PN ---
SUBJECTIVE: This law writer attempted to speak to the patient. The patient was deeply sedated. The patient was able to open her eyes and falling back asleep. Full assessment was not possible to complete. This law writer spoke to the patient's who was next to the patient. As per , the patient was feeling depressed. The patient was drinking on daily basis now. The patient is not eating well and has unsteady gait. Dr. Cabrera consultation over the weekend was done. The patient was seen by her on and from Dr. Cabrera's assessment, the patient was in delirium tremens as well as when medically cleared, the patient most likely needs to be going to the psychiatric inpatient unit. We will follow up on that. Repeat myself, full examination was not possible because the patient was deeply sedated. PHYSICAL EXAMINATION VITAL SIGNS: Reviewed. Temperature 98.4, pulse is 95, blood pressure 136/94, respiration 21, oxygen saturation is 97%. MEDICATIONS: Reviewed. The patient is on Celexa 10 mg, folic acid, Pepcid, Ativan 1 mg IV push q.6 hours , multivitamin, Zofran, sodium chloride and thiamine. LABORATORY DATA: Reviewed. WBC is low. Chemistry reviewed: AST and ALT are elevated, but trending down. Toxicology: Alcohol 176. Serology is negative. MENTAL STATUS EXAMINATION: This law writer was not able to evaluate the patient because the patient was deeply sedated and was opening her eyes and falling back asleep. IMPRESSION: The patient is having alcohol withdrawal delirium, delirium tremens cannot be excluded. PLAN: Continue current management. We will follow up with you. This law writer will advice to have physical therapy evaluation and we will get back to you and advice accordingly. Should you have any questions give me a call. Pam Mathews MD
[2016-12-05] MEDS: Multivitamin With Minerals Tab PO SCH (09:01)
[2016-12-05] MEDS ORDERED: Potassium Chloride 20 mEq ER Tab PO ONE (11:10)
[2016-12-05 13:38] LABS: POTASSIUM 3.3 mmol/L (3.6-5.0)
[2016-12-05 13:40] LABS: ALB/GLOB RATIO 1.2 (1.1-1.8); ALKALINE PHOSPHATASE 91 U/L (38-126); ALT/SGPT 73 U/L (7-56); AST/SGOT 104 U/L (14-36); BILIRUBIN,TOTAL 1.1 mg/dL (0.2-1.3); BLOOD UREA NITROGEN 6 mg/dL (7-21); CALCIUM 8.8 mg/dL (8.4-10.5); CARBON DIOXIDE 31 mmol/L (21-33); CHLORIDE 96 mmol/L (98-107); GFR AFRICAN-AMERICAN > 60; GLUCOSE,RANDOM 125 mg/dL (70-110); SODIUM 133 mmol/L (132-148); TOTAL PROTEIN 6.8 g/dL (5.8-8.3)
[2016-12-05 13:42] LABS: HEMATOCRIT 37.1 % (36.0-48.0); MEAN CELL VOLUME 99.5 fl (80.0-105.0); MEAN CORPUSCULAR HEMOGLOBIN 34.3 pg (25.0-35.0); MEAN CORPUSCULAR HGB CONC 34.5 g/dl (31.0-37.0)
--- NOTE | 2016-12-05 15:23 | PN ---
DATE: FOLLOWUP NOTE SUBJECTIVE: The patient is a 71-year-old female, history of alcohol use disorder. The patient was admitted on the medical site for evaluation of possible alcohol withdrawal delirium. The patient also experienced some psychiatric symptoms with visual and auditory hallucinations. Psych consult was called for evaluation of depressive symptoms as well as hallucinations. Initially, the patient was seen by Dr. Cabrera. The patient was not cleared from the medical standpoint. Yesterday, this lead technical writer attempted to talk to the patient, but the patient was deeply sedated and was not able to participate in interview. Today, this lead technical writer was seen. This patient also discussed with the medical team as well as the patient's who is next to her. The patient appears to be with flat affect, with some psychomotor retardation. The patient said that she was feeling depressed due to problems with her son as well as her . The patient did not want operate further. The patient said that she started to drink about 6 months ago, but recently the patient started to drink more than usual. The patient started to drink vodka as well as beer. The patient states she was drinking because she had abdominal pain and pain in her back. The patient had also insomnia and she was self-mitigating with alcohol. The patient said that she had history of alcohol abuse for the past 20 years, but after her mother about 4 years ago she started to drink heavily. The patient said that she has sober period, but she relapse on alcohol about this summer. The patient has poor insight and the patient said that she is able to control her alcohol abuse, but based on the patient's , it is not the case. The patient reported that she feels depressed and hopeless. At the same time, the patient reported that she feels anxious, but she could have terminal disease, but denied any thoughts of killing herself or others. The patient reported that she hears voices as well as seeing people faces and they are laughing at her. Last episode was today. The patient reported that she still feels unsteady and is not able to ambulate. The patient also reported that she feels nauseated, was not able to tolerate food. PHYSICAL EXAMINATION: VITAL SIGNS: This lead technical writer reviewed vital signs. Temperature 98.2, pulse is 79, blood pressure 135/86, respirations 20, oxygen saturation 99%. MEDICATIONS: Reviewed. The patient is on Celexa, which was started by Dr. Cabrera 10 mg daily; Pepcid; folic acid; Ativan was IV, but this lead technical writer will switch to p.o. medication 2 mg four times a day; multivitamin; Zofran; sodium chloride. The patient also is on Tylenol 100 mg daily. LABORATORY DATA: Reviewed. WBC of 3.8. Granulocytes is 2.0. Chemistry reviewed. AST and ALT are 106 and 64 respectively. Alcohol level was 176. At the time of admission, serology is negative for any hepatitis. MENTAL STATUS EXAMINATION: The patient is [place] speaking, this lead technical writer utilized nurse for translation, [employer]. The patient presented to be sleepy, easily arousable. Flat affect. Speech was underproductive, low volume, slurred. Mood described as depressed and anxious. Affect was constricted. Thought content, the patient reported that she hears voices laughing at her as well as seeing faces, which I laughing at her. Last episode was today. The patient reported that she does not have any thoughts of killing herself or others. Denied intent or plan. Insight and judgment seems to be limited. Impulses are well controlled. IMPRESSION: As per history, the patient most likely has major depressive disorder. The patient also has alcohol use disorder, alcohol withdrawal, delirium, which is improving. Rule out substance-induced mood disorder and anxiety disorder. The patient has multiple medical problems. Please see notes for more detailed information. PLAN: This lead technical writer reviewed physical therapy notes. Recommendation is transitional care unit. This lead technical writer will advise to have physical therapy evaluation because the patient compliant of unsteady gait. Gastroenterology team recommended to advance diet as patient tolerated. The patient complained of nausea. This lead technical writer want to make sure that the patient is able to eat. Withdrawal symptoms seems to be monitored. Celexa was started by Dr. Cbarera. This lead technical writer offered naltrexone for cravings, but the patient denied any cravings for alcohol. The patient might benefit from the small dose of antipsychotic medication at the nighttime in order to help with delirium stage. Multivitamin, thiamine and folic acid will be recommended. Social work evaluation, the patient is willing to sign herself into the psychiatric inpatient and this lead technical writer wanted to make sure that the patient is medically stable for transfer, if the patient is willing to go to TCU. This lead technical writer also find out that the patient can be followed up in transitional care unit as well. Case was discussed with medical team as well as with the patient's . The patient give permission as well as with the nursing staff. Thank you very much for letting me to participate in care of your patient. Should you have any questions, give me a call back. Pam Mathews MD
--- NOTE | 2016-12-05 15:51 | CP.PCM.PN ---
Subjective - Date & Time of Evaluation Date of Evaluation: 12/05/16 Time of Evaluation: 09:30 - Subjective Subjective: Seen and examined at the bedside earlier today, the chart was reviewed. Patient is awake alert and oriented. Family at the bedside. Patient complains of pain to right quadrant that radiates to her back,no acute distress. Patient is tolerating by mouth intake. Positive BM, no reports of overt GI bleed. Objective - Vital Signs/Intake and Output Vital Signs (last 24 hours): Temp Pulse Resp BP Pulse Ox 98.7 F 81 20 133/94 H 96 12/05/16 08:23 12/05/16 13:27 12/05/16 08:23 12/05/16 13:27 12/05/16 08:23 Intake and Output: 12/05/16 12/05/16 06:59 18:59 Intake Total 660 Balance 660 - Medications Medications: Current Medications Citalopram Hydrobromide (Celexa) 10 mg PO DAILY [facility] Last Admin: 12/05/16 09:01 Dose: 10 mg Famotidine (Pepcid) 40 mg PO HS [facility] Last Admin: 12/04/16 21:31 Dose: 40 mg Folic Acid (Folic Acid) 1 mg PO DAILY [facility] Last Admin: 12/05/16 09:01 Dose: 1 mg Lorazepam (Ativan) 2 mg PO TID [facility] PRN Reason: Protocol Last Admin: 12/05/16 13:36 Dose: 2 mg Multivitamins/Minerals (Therapeutic-M Tab) 1 tab PO 0800 [facility] Last Admin: 12/05/16 09:01 Dose: 1 tab Ondansetron HCl (Zofran Inj) 4 mg IVP Q6H PRN PRN Reason: Nausea/Vomiting Last Admin: 12/03/16 06:10 Dose: 4 mg Thiamine HCl (Vitamin B1 Tab) 100 mg PO DAILY [facility] Last Admin: 12/05/16 09:01 Dose: 100 mg - Labs Labs: 12/05/16 13:28 12/05/16 13:28 - Constitutional Appears: No Acute Distress - Head Exam Head Exam: NORMOCEPHALIC - Eye Exam Eye Exam: Normal appearance. absent: Scleral icterus - ENT Exam ENT Exam: Mucous Membranes Moist - Neck Exam Neck Exam: Normal Inspection - Respiratory Exam Respiratory Exam: NORMAL BREATHING PATTERN. absent: Respiratory Distress - Cardiovascular Exam Cardiovascular Exam: +S1, +S2 - GI/Abdominal Exam GI & Abdominal Exam: Soft, Tenderness (right upper quadrantS), Normal Bowel Sounds. absent: Guarding, Organomegaly, Rebound - Extremities Exam Extremities Exam: Normal Capillary Refill. absent: Calf Tenderness, Pedal Edema - Neurological Exam Neurological Exam: Alert, Awake, Oriented x3 (area) Additional comments: no tremors - Skin Skin Exam: Dry ([place] know everyone at school), Warm Assessment and Plan - Assessment and Plan (Free Text) Assessment: Assessment: Episode of blood per rectum, negative rectal exam Right upper quadrant pain history of cholecystectomy Liver cirrhosis, status post liver biopsy (2012 ), no malignancy, consistent with steatosis History of EtOH, alcohol withdrawal Depression Pancytopenia Elevated LFTs, improving Plan: Diet as tolerated Monitor H&H and for overt GI bleed Trend LFTs Continue Pepcid On folic acid and Thiamine Patient would benefit from elective colonoscopy Plan is to transfer to psychiatric unit when medically stable Seen and discussed with Dr. Frank
[2016-12-05 16:41] VITALS: BP 154/91; TEMP 97.2; O2SAT 98
[2016-12-05 18:16] VITALS: PULSE 94
--- NOTE | 2016-12-06 07:56 | DS ---
FINAL DIAGNOSES: Alcohol abuse, chronic alcoholism, alcohol withdrawal syndrome, improved; chronic anxiety, recurrent; depression; alcoholic gastritis; pancytopenia, improving and most likely secondary to chronic alcoholism and acute bone marrow suppression; elevated liver function testing in the setting of alcohol abuse; history of fatty liver; and history of liver cirrhosis in her past. DISPOSITION: Transitional care unit. CONSULTANTS: Dr. Fransisco Frank from GI, Dr. Pam Mathews from psychiatry. DISCHARGE DIET: Soft bland. ORDERS: Aspiration precautions, fall precautions, out of bed with assistance, physical therapy for ambulation safety, psychiatric medication to be decided by psychiatry. SUMMARY: This is a 71-year-old female who was admitted to [facility] with nausea, vomiting, tremors in the setting of alcohol withdrawal syndrome with history as noted above. Initially, the patient required IV Ativan for alcohol withdrawal syndrome. She was maintained on the cardiac unit and was closely monitored neurologically, cardiovascularly, and from a GI standpoint. Initially, she had nausea and vomiting and was unable to tolerate liquids. She continued on IV fluids and at the time of this discussion was being slowly advanced to a soft bland diet. The case has been reviewed with her in detail who states that his has a longstanding history of alcohol abuse, misuse, alcoholism, anxiety, depression, and fatty liver and alcoholic cirrhosis. He is aware of all the above issues including her pancytopenia, elevated liver function testing, and poor prognosis in the clinical setting of persistent alcohol abuse and misuse. The patient will be transferred to transitional care rehab for reconditioning gait training and additional adjustment of medication and possibly to the psychiatric hooker for further inpatient psychiatric monitoring. All of this will be decided based on her clinical progress. PHYSICAL EXAMINATION: VITAL SIGNS: At the time of discharge, temperature 97.2, respirations 20, pulse 94, and blood pressure 133/94 with pulse ox of 98% on room air. LABORATORY DATA: Showed hepatitis A, B and C panels negative. White count 4000, hemoglobin 12.8, hematocrit 37.1, and platelets 109,000. Sodium 133, potassium 3.3, chloride 96, bicarb 31, BUN 6, creatinine 0.5, and random blood sugar 125. Bilirubin 1.1, AST 104, ALT 73 and alk phos 91. Admission bilirubin was 1.1 with an AST of 211, ALT of 76, and alk phos of 135. Her alcohol level on admission was 176. Her abdominal pelvic CT showed that she had, had a cholecystectomy, fatty liver, and minimal diverticulosis. Chest x-ray showed no active disease. EKG showed normal sinus rhythm. The patient will be closely monitored in the rehabilitation unit, all the above were discussed in detail with the patient, nursing, co-consultants and her . Overall prognosis remains poor. Greater than fifty minutes was spent in the management of this patient today. Maricarmen Cabrera MD MTDD
== END 2016-12-05 18:30 | DRG 897 ==
LOC: ED 21:35 → ERH 12-01 05:34 → 3RSO 12-01 09:29
PROVIDERS: ADMIT Internal Medicine; ATTEND Internal Medicine
DX: F10.231 Alcohol dependence with withdrawal delirium (principal); D61.818 Other pancytopenia; K70.30 Alcoholic cirrhosis of liver without ascites; F33.9 Major depressive disorder, recurrent, unspecified; K29.20 Alcoholic gastritis without bleeding; F43.23 Adjustment disorder with mixed anxiety and depressed mood; K70.10 Alcoholic hepatitis without ascites; E87.6 Hypokalemia; K52.9 Noninfective gastroenteritis and colitis, unspecified; E86.0 Dehydration; K76.0 Fatty (change of) liver, not elsewhere classified; D73.1 Hypersplenism; Y90.6 Blood alcohol level of 120-199 mg/100 ml

== ENCOUNTER 2016-12-05 18:30 | Inpatient (IN) | payer MEDICARE ==
[2016-12-05] MEDS ORDERED: Potassium Chloride 20 mEq ER Tab PO ONE (19:07)
[2016-12-05] MEDS ORDERED: Pneumococcal 23-Valent Vaccine IM ONE (21:50)
--- NOTE | 2016-12-06 13:03 | PN ---
DATE: 12/06/2016 SUBJECTIVE: This is a 71-year-old female was examined at her bedside, and her case was reviewed with herself and nursing. The patient remains weak and deconditioned in the setting of alcohol abuse and misuse, acute alcohol withdrawal and alcoholic hepatitis, complicated by nausea, vomiting and slowly resolving elevated liver function testing. The patient remains anxious and depressed. I have had a lengthy discussion with her and the previously regarding all of the above, and her alcohol abuse issues are chronic and recurrent. The patient also has a history of fatty liver and alcoholic cirrhosis from previous hospitalization reports. At present, the patient is lying in bed. She remains anxious. She states that she feels occasional nausea and denied any active vomiting. There have been no reports of hematemesis or melena. PHYSICAL EXAMINATION: VITAL SIGNS: Shows temperature 98.5, respirations 18, pulse 85, and blood pressure 147/90 with a pulse ox of 98% on room air. HEENT: Head is normocephalic and atraumatic. Eyes: No icterus. Ears: Clear. Throat: Non-injected. NECK: Supple. HEART: Regular, S1 and S2. LUNGS: Clear. ABDOMEN: Soft, nontender without palpable organomegaly. No rebound, no guarding, no tenderness. EXTREMITIES: Show no clubbing, no cyanosis, no edema. SKIN: Without rash. NEUROLOGICAL: Intact. PSYCHOLOGICAL: She is tearful and anxious. VASCULAR: Legs warm to touch. LABORATORY DATA: Today's potassium level is 4.1, glucose level is 104. Yesterday's CBC showed white count 4000, hemoglobin 12.8, hematocrit 37.1, platelets 109,000. Admission alcohol level 176. Sodium 133, chloride 96, bicarbonate 31, BUN 6, creatinine 0.5 with bilirubin of 1.1, AST 104, ALT 73, and alkaline phosphatase of 91. IMPRESSION: This is a 71-year-old female with history of recurrent alcohol abuse with alcohol withdrawal syndrome, alcoholism, alcoholic hepatitis, history of fatty liver and probable alcohol-related cirrhosis, admitted with improving now pancytopenia, probably secondary to bone marrow suppression secondary to alcohol toxicity, also with history of fatty liver, cirrhosis, anxiety, depression. PLAN: Plan at present is to continue Ativan 0.5 mg p.o. q.6 hours p.r.n. alcohol withdrawal or anxiety. She was given one dose of potassium chloride 40 mEq and her potassium level is now improved. She continues on Pepcid 40 mg p.o. at bedtime. I will order Zofran 4 mg IV q. 6 hours p.r.n. nausea and vomiting. She will be ordered to have nitroglycerin to her chest wall 1-inch q. 4 hours p.r.n. accelerated hypertension if her systolic blood pressure should be greater than 160 or diastolic blood pressure greater than 100. She remains on a soft bland diet, aspiration and fall precautions. I have asked the nursing staff to get her out of bed to chair with assistance and to have Physical Therapy evaluate her for ambulation and staircase safety. All of the above has been discussed in detail with the patient, nursing and Psychiatry. GI has recommended an elective colonoscopy for this patient in her future when she is well and hopefully, she will be compliant with their recommendation as outlined. Overall prognosis is poor but remains stable at present. All of the above was discussed in detail with the patient, coconsultants, nursing and her . Maricarmen Cabrera MD MTDD
--- NOTE | 2016-12-06 13:19 | CP.PCM.PCO ---
Physician Communication Note - Physician Communication Note Physician Communication Note: pt c/o pain in her neck area, was not able to participate, RN notified
[2016-12-06] MEDS: Menthol/Methyl Salicylate Ointment(1 oz) TOP PRN (13:23)
--- NOTE | 2016-12-07 19:20 | PN ---
SUBJECTIVE: The patient was seen and examined. The patient complained that she has insomnia and tremor. The patient reports that she does not have any thoughts of killing herself or others. The patient was educated about her prognosis,and if she will continue drinking, outcome could be bad. The patient verbalized understanding. is next to the patient, seems to be supportive. PHYSICAL EXAMINATION: VITAL SIGNS: Stable. Temperature is 98.1, pulse 94, blood pressure 134/102, respirations 20, oxygen saturation is 98. MEDICATIONS: Reviewed. The patient asked medication for insomnia. This proposal writer educated the patient about trazodone for depression and insomnia. The patient verbalized understanding. Risks and benefits and alternatives were discussed with the patient. LABORATORY DATA: Labs reviewed. MENTAL STATUS EXAMINATION: The patient is sensitive, withdrawn. Flat affect, not participating in unit activities unless she is directed. The patient is staying in dark room. Mood described as "I feel better". Affect was constricted. Thought process coherent and goal directed. Thought content: The patient denies visual, auditory, or tactile hallucinations. Denies paranoid ideations. The patient denied thoughts of harming herself or others. Denied intent or plan. Insight and judgment improving. Impulses are well controlled. IMPRESSION: Substance-induced mood disorder. The patient has multiple medical issues, please see Dr. Cabrera's note for more detailed information. The patient is on alcohol withdrawal which is better. PLAN: Continue current management. Trazodone was started at the nighttime for depression and insomnia. The patient is on Ativan. Physical therapy follow up. Should they have any questions give me a call back. This proposal writer will follow up on this patient every other day. Thank you very much for letting me to participate in the care of your patient. Pam Mathews MD
--- NOTE | 2016-12-07 20:38 | PN ---
DATE: 12/07/2016 SUBJECTIVE: This 71-year-old female was examined at her bedside and her case was reviewed in detail with herself, nursing and her at the bedside. The patient still complains of multiple somatic complaints, muscle aches and pains, insomnia, anxiety and has a past medical history of anxiety, recurrent depression and alcoholism and alcohol abuse misuse and admission at this time for alcohol withdrawal syndrome. The patient according to the has a longstanding history of daily alcohol abuse and misuse. She drinks vodka approximately one-quart plus beer daily. Her p.o. nutritional status is poor. She prefers to drink rather than eat according to the and has refused any intervention or alcohol rehab or AA recommendations in the past. PHYSICAL EXAMINATION VITAL SIGNS: At the present time, temperature 97.1, respirations 20, pulse 94, and blood pressure 134/102 with a pulse ox of 98% on room air. HEENT: Head is normocephalic and atraumatic. Eyes: No icterus. Ears: Clear. Throat: Non-injected. NECK: Supple. HEART: Regular S1 and S2. LUNGS: Clear. ABDOMEN: Soft, no palpable organomegaly. No rebound, no guarding, no tenderness. EXTREMITIES: No clubbing, cyanosis, or edema. NEUROLOGICAL: Intact. PSYCHOLOGICAL: Alert, anxious and tearful. VASCULAR: Legs warm to touch. LABORATORY DATA: Potassium 4.1, random blood sugar 104. IMPRESSION: A 71-year-old female with chronic alcohol abuse and misuse, admitted with alcohol withdrawal syndrome, history of fatty liver, alcoholic cirrhosis, degenerative arthritis and improving pancytopenia and elevated liver function testing in the setting of alcohol toxicity. PLAN: The patient at present is to continue Zofran 4 mg IV q. 6 hours p.r.n., nausea and vomiting, Pepcid 40 mg p.o. at bedtime, nitroglycerin to chest wall q. 4 hours p.r.n. accelerated hypertension, [place] topically to affected muscle and joints p.r.n, Ativan 0.5 mg p.o. q. 6 hours, p.r.n. anxiety, soft bland diet, aspiration and fall precautions, out of bed to chair with assistance and physical therapy for ambulation safety. I have discussed with the that the patient will need to be able to navigate the staircase of 18 stairs safely and ultimate plan will be for discharge either to the psychiatric unit or home with the family providing 24-hour supervision when patient is medically cleared. All of the above was discussed in detail and greater than fifty minutes was spent in the care management and discussion with the patient and family regarding the issues at hand today. Maricarmen Cabrera MD MTDD
--- NOTE | 2016-12-08 14:53 | PN ---
DATE: 12/08/2016 SUBJECTIVE: This 71-year-old female was examined at her bedside, her case was reviewed in detail with herself and nursing. The patient remains weak, deconditioned, tearful and anxious. She has multiple medical problems including alcohol abuse and misuse, history of alcohol withdrawal syndrome, fatty liver, alcoholic cirrhosis, and elevated liver function testings in the setting of alcohol abuse. The patient is receiving physical therapy for reconditioning and gait training. She has 18 stairs that need to be navigated into her apartment. She continues to have a poor appetite and according to her , the patient prefers to drink alcohol rather than eat. The patient complains of multiple aches and pains, insomnia, anxiety and is being followed by psychiatrist, Dr. Pam Mathews. PHYSICAL EXAMINATION: VITAL SIGNS: Temperature is 98.6, respirations 20, pulse 82, blood pressure 118/83 with a pulse ox of 97% on room air. HEENT: Head is normocephalic and atraumatic. Eyes: No icterus. Ears: Clear. Throat: Non-injected. NECK: Supple. HEART: Regular S1 and S2. LUNGS: Clear. ABDOMEN: Obese. No rebound, no guarding, no tenderness. EXTREMITIES: No edema. SKIN: Without rash. NEUROLOGICAL: Intact. PSYCHOLOGICAL: Anxious and tearful. VASCULAR: Legs warm to touch. IMPRESSION: This is a 71-year-old female with alcohol abuse, misuse, chronic alcoholism, elevated LFTs secondary to alcohol toxicity, history of fatty liver and alcoholic cirrhosis, now with deconditioning, anxiety, depression, and insomnia. PLAN: At present is to continue Pepcid 40mg p.o. at bedtime, Zofran 4 mg IV q. 6 hours p.r.n. nausea and vomiting, nitroglycerin to chest wall 1 inch q. 4 hours p.r.n. accelerated hypertension if her systolic blood pressure should be greater than 160 or diastolic blood pressure should be greater than 100. She has an order for Bengay topical ointment to any muscle or joint areas that are uncomfortable or in pain. Dr. Mathews has ordered Desyrel 25 mg p.o. at bedtime for anxiety, depression and insomnia. The patient will have a comprehensive metabolic panel and a CBC in the a.m. She continues on a soft, bland diet. She is on fall and aspiration precautions and is ordered to be out of bed to chair daily along with physical and occupational therapy for reconditioning, gait training and staircase safety. Ultimate plan will be for this patient to be discharged to home with her family with 24-hour supervision and overall prognosis remains poor though stable at present. All of the above was discussed in detail with the patient, psychiatry, nursing and her . Greater than fifty minutes was spent in the care, management, and ordering of care for this patient today. Maricarmen Cabrera MD [facility]
--- NOTE | 2016-12-08 21:15 | PN ---
DATE: 12/08/2016 SUBJECTIVE: The patient is a 71-year-old female, a long history of alcohol use disorder. Most likely, the patient has mood disorder due to chronic alcohol consumption. The patient has multiple medical problems, such as liver alcoholic cirrhosis, elevated liver enzymes. The patient was admitted on the medical side, then downgraded to TCU unit. We tried to follow patient for depressive symptoms as well as possible withdrawal symptoms as well as insomnia. We tried to implement the trazodone yesterday, but the patient did not sleep on that medication, asked to discontinue it. We tried to offer the patient to have Sonata. Risks, benefits and alternatives of the medications discussed with the patient. The patient verbalized understanding. The patient presented with minimal improvement. Hygiene is better. The patient's affect is a little bit brighter. The patient's is next to the patient. We tried to also discuss the case with the physical therapy team. As per physical therapy, the patient participated in therapy yesterday, but not today because the patient complained of nausea and vomiting. PHYSICAL EXAMINATION VITAL SIGNS: Stable. MEDICATIONS: Reviewed. The patient will be on Sonata 5 mg at night and Zofran, nitroglycerin, Bengay. At the same time, the patient does not have any withdrawal symptoms. MENTAL STATUS EXAMINATION: The patient presented to be alert. Personal hygiene is better. Affect is more reactive. Speech was underproductive, yes/no answers. Thought process seems to be coherent and goal directed. Thought content, the patient denied visual, auditory, or tactile hallucinations. Denies paranoid ideations. The patient denied thoughts of harming herself or others. Denied intent or plan. IMPRESSION: Alcohol use disorder, rule out substance-induced mood disorder, rule out major depressive disorder. PLAN: Continue current management, continue current medications, continue physical therapy. This personal lines underwriter will discontinue trazodone. Sonata will be given to the patient 5 mg at the nighttime for insomnia. We will follow up and advice accordingly. The patient denied thoughts of harming herself or others. Denied intent or plan. The patient's is next to her, seems to be very supportive. We will follow on this patient every other day. Case will be endorsed to Dr. Cabrera. Thank you very much for letting me to participate in care of your patient. Pam Mathews MD [facility] # [id number]
[2016-12-09] MEDS: Nitroglycerin 2% Ointment Foilpak UD TOP PRN (05:34)
[2016-12-09] MEDS: Menthol/Methyl Salicylate Ointment(1 oz) TOP PRN (05:35)
[2016-12-09 08:32] LABS: HEMATOCRIT 37.1 % (36.0-48.0); MEAN CELL VOLUME 101.1 fl (80.0-105.0); MEAN CORPUSCULAR HEMOGLOBIN 34.3 pg (25.0-35.0); MEAN PLATELET VOLUME 9.9 fl (7.0-11.0); RED CELL DISTRIBUTION WIDTH 13.2 % (11.5-14.5)
[2016-12-09 08:43] LABS: ALB/GLOB RATIO 1.2 (1.1-1.8); ALKALINE PHOSPHATASE 91 U/L (38-126); ALT/SGPT 65 U/L (7-56); AST/SGOT 58 U/L (14-36); BILIRUBIN,TOTAL 0.5 mg/dL (0.2-1.3); BLOOD UREA NITROGEN 15 mg/dL (7-21); CALCIUM 9.7 mg/dL (8.4-10.5); CARBON DIOXIDE 32 mmol/L (21-33); CHLORIDE 99 mmol/L (98-107); GFR AFRICAN-AMERICAN > 60; GLUCOSE,RANDOM 125 mg/dL (70-110); POTASSIUM 4.4 mmol/L (3.6-5.0); SODIUM 138 mmol/L (132-148); TOTAL PROTEIN 6.8 g/dL (5.8-8.3)
[2016-12-09] MEDS ORDERED: Aluminum Hydrox Gel 320 mg/5 ml Susp(480 ml) PO ONE ×2 (18:04→18:06)
[2016-12-09] MEDS ORDERED: Aluminum Hydrox Gel 320 mg/5 ml Susp(480 ml) PO PRN (18:06)
--- NOTE | 2016-12-09 20:06 | PN ---
DATE: 12/09/2016 SUBJECTIVE: This 71-year-old female, remains hospitalized for multiple medical problems including alcohol abuse, alcohol withdrawal syndrome, chronic alcoholism in the setting of fatty liver, and alcoholic cirrhosis. The patient is also being treated for chronic depression, anxiety and insomnia and has had persistent liver function testing elevation in the setting of alcohol misuse and abuse. The patient remains deconditioned. She has a poor p.o. intake. PHYSICAL EXAMINATION: VITAL SIGNS: Today has a temperature of 98.4, respirations 20, pulse 79, and blood pressure 138/88 with a pulse ox of 98% on room air. HEENT: Head is normocephalic and atraumatic. Eyes: No icterus. Ears: Clear. Throat: Non-injected. NECK: Supple. HEART: Regular S1 and S2. No pathological rubs, murmurs, or gallops. LUNGS: Clear to auscultation. ABDOMEN: Obese, nontender without palpable organomegaly. No rebound, no guarding, no tenderness. EXTREMITIES: Show no clubbing, no cyanosis, no edema. SKIN: Without rash. NEUROLOGICAL: Intact. PSYCHOLOGICAL: Alert and oriented x3. VASCULAR: Legs warm to touch. LABORATORY DATA: Sodium 138, potassium 4.4, chloride 99, bicarbonate 32, BUN 15, creatinine 0.7, random blood sugar 125. Bilirubin 0.5, AST 58, normal less than 36; ALT 65, normal less than 56, alkaline phosphatase 91. White count 5000, hemoglobin 12.6, hematocrit 37.1, and platelets 182,000. IMPRESSION: This is a 71-year-old female with deconditioning and comorbidities of alcohol abuse, chronic alcoholism, fatty liver, alcoholic cirrhosis, slowly resolving elevated liver function testing in the setting of alcohol toxicity with comorbidities of degenerative arthritis, anxiety, depression and chronic insomnia. PLAN: At present is to continue bland diet, aspiration and fall precautions. She continues to receive Pepcid 40 mg p.o. at bedtime, sonata 5 mg p.o. at bedtime for sleep under the direction of Dr. Pam Mathews, psychiatry, as she is ordered to receive Zofran 4 mg IV q. 6 hours p.r.n. nausea and Bengay topically to any arthritic joint or muscle ache or pain. There was an order for nitroglycerin 1-inch to chest wall q. 4 hours p.r.n. accelerated hypertension. Should her blood pressure systolic greater than 160 or diastolic blood pressure greater than 100. As she is receiving daily physical and occupational therapy, I have reviewed with nursing and physical therapy that she will need to be practiced on 18 stairs for ambulation safety. The patient has had repeated admonishment against alcohol intake given her multiple comorbidities related to this behavior. It was discussed with the patient in the presence of her that should she have continued misuse and abuse of alcohol, she is at risk of increased morbidity and mortality. was at bedside and present for this discussion. Her overall prognosis remains poor. Approximately fifty minutes was spent in the care, management and counseling of this patient today as well as discussion with physical therapy, nursing and psychiatry. Maricarmen Cabrera MD [facility]
[2016-12-10] MEDS: Nitroglycerin 2% Ointment Foilpak UD TOP PRN (10:36)
--- NOTE | 2016-12-10 14:29 | PN ---
DATE: 12/10/2016 SUBJECTIVE: This 71-year-old female remains hospitalized with multiple medical problems including recent alcohol withdrawal syndrome in the setting of alcohol abuse, alcoholism, alcohol toxicity, history of alcoholic cirrhosis, and fatty liver. The patient remains anxious and tearful, is being followed by Psychiatry. She has complaints of insomnia and anxiety. PHYSICAL EXAMINATION: VITAL SIGNS: Today was noted to have temperature 98.6, respirations 20, pulse 84, and blood pressure 111/72 with a pulse ox of 97% on room air. HEENT: Head is normocephalic and atraumatic. Eyes: No icterus. Ears: Clear. Throat: Non-injected. NECK: Supple. HEART: Regular S1 and S2. LUNGS: Clear. ABDOMEN: Soft and nontender without palpable organomegaly. No rebound. No guarding. No tenderness. EXTREMITIES: No clubbing. No cyanosis. No edema. SKIN: Without rash. NEUROLOGIC: Intact. PSYCHOLOGICAL: Alert. VASCULAR: Legs are warm to touch. LABORATORY DATA: White count 5000, hemoglobin 12.6, hematocrit 37.1, and platelets 182,000. Sodium 138, K 4.4, chloride 99, bicarb 32, BUN 15, creatinine 0.7. Random blood sugar was 125. Bilirubin 0.5, AST 58, ALT 65, and alkaline phosphatase 91. IMPRESSION: A 71-year-old female with deconditioning, need for rehabilitation for gait training, staircase safety, and endurance training also with chronic alcoholism, alcohol abuse, alcohol withdrawal syndrome, alcoholic cirrhosis,slowing improving LFTs, fatty liver, history of noncompliant with diet and medication in her past, also with anxiety, depression, and insomnia. PLAN: At present is to continue Amphojel 30 mL p.o. q. 12 hours p.r.n. dyspepsia; nitroglycerin 1-inch to chest wall q. 4 hours p.r.n. accelerated hypertension, if her systolic blood pressure should be greater than 160 or diastolic blood pressure greater than 100; Pepcid 40 mg p.o. at bedtime; and Zofran 4 mg IV q. 6 hours p.r.n. nausea and vomiting. She is prescribed by Psychiatry, Sonata 5 mg p.o. at bedtime. She is on a bland diet. She remains on aspiration and fall precautions and is receiving physical therapy for ambulation and staircase safety. Ultimate plan will be for discharge to home with 24-hour supervision by family. Overall prognosis remains poor because of persistence of alcohol abuse and misuse. The patient declined alcohol rehab or attending AA at the present time. All of this was discussed in detail with the patient, nursing, co-consultants from Psychiatry and her . Greater than fifty minutes was spent in the discussion and management of her care today. Maricarmen Cabrera MD [facility]
[2016-12-11] MEDS: Nitroglycerin 2% Ointment Foilpak UD TOP PRN (06:00)
--- NOTE | 2016-12-11 11:48 | PN ---
DATE: FOLLOWUP NOTE SUBJECTIVE: The patient is a 71-year-old female, history of alcohol use disorder. The patient was admitted on the medical site for evaluation of alcohol withdrawal delirium. Psych consult was called for possible depressive symptoms. The patient was followed up for past week. The patient was downgraded to TCU for physical therapy. The patient was seen and examined today. The patient presented much better and ambulates without any assistance. The patient still complained of insomnia, but on detailed questioning the patient said she had uncomfortable feeling that she was not able to move her bowels for past 6 days. The patient said that whole day she was staying in the bathroom and it was main reason why the patient was not sleeping, if she would move her bowel she probably would be able to fall asleep and stay asleep. The patient reports that she is upset, but denied being depressed. Denied thoughts of harming herself or others. Denied intent or plan. Insight into her addiction to alcohol, also improving. PHYSICAL EXAMINATION: VITAL SIGNS: This sign writer letterer or painter reviewed vital signs. Temperature 98.4, pulse is 91, blood pressure 165/97, respirations 20, oxygen saturation 97. MEDICATIONS: Reviewed. Tylenol, Bengay, Pepcid, nitroglycerin, Zofran, sonata was started by this sign writer letterer or painter last week. LABORATORY DATA: Reviewed. Chemistry reviewed. There are no new labs. MENTAL STATUS EXAMINATION: The patient presented to be alert and oriented, ambulates without any difficulties. Personal hygiene is much better. Affect is more reactive and brighter. Mood described I feel better, but I have constipation. Thought process, coherent and goal directed. Thought content, the patient denied visual, auditory, or tactile hallucinations. Denied paranoid ideations. The patient denied thoughts of harming herself or others. Denied intent or plan. Insight and judgment improving. Impulses are well controlled. IMPRESSION: Alcohol use disorder with delirium, which is improving. The patient has most likely mood disorder due to general medical condition, substance-induced mood disorder, which is improving. PLAN: Continue current management and was notified about constipation. Meanwhile, the patient is doing much better. The patient denied thoughts of dying, thought of killing herself. The patient denied feeling depressed. The patient might benefit from naltrexone and AA meeting. The patient did not pose any imminent danger to self or others. The patient could be benefited from outpatient program like a program, mental illness/chemical addiction but at this same, this sign writer letterer or painter cannot exclude that mood will be improving if the patient will stop drinking and participate in outpatient program. This sign writer letterer or painter will sign off. machine worker evaluation for possible inpatient rehab if the patient is willing to. Should you have any questions, give me a call back. Thank you very much for letting me to participate in care of your patient. Pam Mathews MD
[2016-12-11] MEDS ORDERED: Magnesium Hydroxide Susp 30 ml UD PO STA (12:06)
[2016-12-11] MEDS ORDERED: Aluminum Hydrox Gel 320 mg/5 ml Susp(480 ml) PO PRN (12:08)
--- NOTE | 2016-12-11 13:25 | PN ---
DATE: 12/11/2016 SUBJECTIVE: This 71-year-old female was examined at her bedside with nursing present acting as a quality assurance calibrator. The patient complains of obstipation. She remains anxious and is complaining of insomnia. It was discussed that given her past medical history, all psychotropic drugs will be prescribed by psychiatry who has ordered Sonata 5 mg p.o. at bedtime without success according to the patient. PHYSICAL EXAMINATION: GENERAL: On physical exam, she denies chest pain, shortness of breath, fever or chills. VITAL SIGNS: Temperature 97.8, respirations 20, pulse 95, blood pressure 114/87, and pulse ox 97% room air. HEENT: Head normocephalic and atraumatic. Eyes: No icterus. Ears: Clear. Throat: Non-injected. NECK: Supple. HEART: Regular S1 and S2. LUNGS: Clear. ABDOMEN: Soft. EXTREMITIES: No edema. SKIN: Without rash. NEUROLOGIC: Intact. PSYCHOLOGIC: Alert and anxious. VASCULAR: Legs warm to touch. LABORATORY DATA: White count 5000, hemoglobin 12.6, hematocrit 37.1, platelets 182,000. Sodium 138, potassium 4.4, chloride 99, bicarb 32, BUN 15, creatinine 0.7, random blood sugar 125, AST improved to 58, ALT improved to 65, bilirubin normal 0.5 and alk phos 91. IMPRESSION AND PLAN: A 71-year-old female admitted with alcohol toxicity, alcohol abuse, alcohol withdrawal syndrome, fatty liver, cirrhosis of the liver, elevated LFTs that are slowly improving and alcoholic gastritis, also with anxiety and depression. The plan at present is to continue physical therapy with ambulation safety. I have spoken to her physical therapist. She has not yet done staircase safety and needs to accomplish 18 steps prior to consideration of discharge. She will continue on Pepcid 40 mg p.o. at bedtime. Nursing will be calling Dr. Pam Mathews from psychiatry regarding her issues regarding insomnia. She is ordered to have Amphojel 30 mL p.o. q. 6 hours p.r.n. dyspepsia, also 30 mL of milk of magnesia and a Fleet Enema if she does not have the bowel movement. She will continue on Zofran 4 mg IV q. 6 hours p.r.n. nausea. She is on a bland diet. She remains on fall and aspiration precautions, is receiving daily physical therapy and ultimate plan will be for discharge to home with 24 hours supervision when medically and psychiatrically cleared. All this was discussed in detail with the patient at the bedside. Nursing was there to translate and greater than fifty minutes were spent in the care, discussion, and management of this patient. Maricarmen Cabrera MD [facility]
[2016-12-12] MEDS: Nitroglycerin 2% Ointment Foilpak UD TOP PRN (10:49)
--- NOTE | 2016-12-13 02:24 | PN ---
DATE: 12/12/2016 SUBJECTIVE: This 71-year-old female remains hospitalized, receiving physical and occupational therapy in the setting of deconditioning and need for gait and staircase safety training, having been hospitalized for acute alcoholism, alcohol toxicity, alcohol withdrawal syndrome, all in the setting of alcohol abuse, chronic alcoholism, history of alcoholic cirrhosis, and fatty liver. The patient's liver enzymes were elevated on admission are slowly resolving, and she will have followup blood testing in the a.m. as well. I have had numerous discussions with the patient and her as well as social service and nursing regarding the patient's ultimate plan for discharge tomorrow and the patient at present refuses any consideration of alcohol rehab or detox as an outpatient. PHYSICAL EXAMINATION VITAL SIGNS: Temperature is 98.2, respirations 18, pulse 87, blood pressure 141/87 with a pulse ox of 98% on room air. HEENT: Head is normocephalic and atraumatic. Eyes, no icterus. Ears, clear. Throat, noninjected. NECK: Supple. HEART: Regular S1, S2. LUNGS: Clear. ABDOMEN: Soft. EXTREMITIES: No edema. SKIN: Without rash. NEUROLOGICAL: Intact. PSYCHOLOGICAL: Alert. VASCULAR: Legs warm to touch. LABORATORY DATA: Show sodium 138, potassium 4.4, chloride 99, bicarbonate 32, BUN 15, creatinine 0.7. Random blood sugar 125. Liver function testing is resolving with bilirubin 0.5, AST 58, ALT 65, and alkaline phosphatase 91. White count 5000, hemoglobin 12.6, hematocrit 37.1, platelets 182,000. IMPRESSION: This is a 71-year-old female with a chronic alcoholism, admitted with alcohol withdrawal syndrome, alcohol abuse and misuse, anxiety, reactive depression, history of fatty liver, elevated liver function testing, and alcoholic cirrhosis. At present, she has chronic insomnia. I will continue at present with Pepcid 40 mg p.o. at bedtime. She is ordered to receive Zofran 4 mg IV q. 6 hours p.r.n. nausea and vomiting. She remains on soft bland diet. She continues on fall and aspiration precautions. I have spoken with her physical therapist regarding her need for ambulation and staircase safety. Ultimate plan will be for discharge to home with her providing 24-hour supervision upon discharge. Overall prognosis remains poor if the patient does not desist from her chronic alcohol intake, and all of this has been discussed in detail with the patient and on repeated occasions. The patient will have repeat liver function testing in the a.m. with plans for discharge as detailed. Maricarmen Cabrera MD [facility]
[2016-12-13 06:01] LABS: ALT/SGPT 51 U/L (7-56); AST/SGOT 62 U/L (14-36)
[2016-12-13 12:33] VITALS: BP 131/74; PULSE 93; RESP 20; TEMP 98.7; O2SAT 96
--- NOTE | 2016-12-13 14:04 | DS ---
FINAL DIAGNOSES: Alcohol withdrawal syndrome, resolved; alcoholic gastritis, improved; chronic alcoholism; elevated liver function testing, improving; history of fatty liver; history of alcoholic cirrhosis. DISPOSITION: Home. The patient is to follow up with Dr. Fransisco Frank from , phone number [phone], and also will be monitored by her with 24-hour supervision to prevent further alcohol abuse or misuse. The patient refused alcohol detox or alcohol rehab. DISCHARGE DIET: Soft, bland. DISCHARGE MEDICATIONS: Include Pepcid 40 mg p.o. at bedtime and Amphojel 30 mL p.o. q. 6 hours p.r.n. dyspepsia. SUMMARY: This 71-year-old female was admitted to [facility] with alcohol abuse, misuse, withdrawal syndrome in the setting of anxiety and history of alcoholism, fatty liver, and alcoholic cirrhosis. She went through alcohol withdrawal protocol, was felt to be deconditioned, was admitted to transitional care rehab for reconditioning and gait training, and at the time of this dictation is independent in ambulation and staircase safety. Temperature was 98.1, respirations 18, pulse 88, blood pressure 113/72 with a pulse ox of 98% room air. White count 5000, hemoglobin 12.6, hematocrit 37.1, platelets 182,000. Sodium 138, potassium 4.4, chloride 99, bicarb 32, BUN 15, creatinine 0.6, random blood sugar 125. AST is now down to 62 with normal being 36 or less. ALT is 51, normal. Alk phos 91, normal. Bilirubin 0.5, normal. The patient is discharged to home to the care of her . He is informed of all the above. He is aware of her overall increased risk for morbidity and mortality if she does not desist from alcohol abuse or misuse, and the patient was advised of this as well in the presence of her nurse, Darline Morin. All the above was discussed in detail. Insurance forms were completed. All questions were answered. Greater than fifty minutes was spent in the care, management, and counseling of this patient today. Maricarmen Cabrera MD [facility] # [id number] [place]
== END 2016-12-13 14:10 | disposition home health service (06) | DRG 945 ==
LOC: TRCU 18:30
PROVIDERS: ADMIT Internal Medicine; ATTEND Internal Medicine
PROC: F07K6ZZ Therapeutic Exercise Treatment of Musculoskeletal System - Upper Back / Upper Extremity (ICD-10-PCS; 2016-12-07)
PROC: F07L6ZZ Therapeutic Exercise Treatment of Musculoskeletal System - Lower Back / Lower Extremity (ICD-10-PCS; 2016-12-07)
PROC: F07Z9ZZ Gait Training/Functional Ambulation Treatment (ICD-10-PCS; principal; 2016-12-08)
PROC: F07Z5ZZ Bed Mobility Treatment (ICD-10-PCS; 2016-12-09)
PROC: F07Z8ZZ Transfer Training Treatment (ICD-10-PCS; 2016-12-09)
DX: R53.1 Weakness (principal); F10.239 Alcohol dependence with withdrawal, unspecified; F33.9 Major depressive disorder, recurrent, unspecified; F10.24 Alcohol dependence with alcohol-induced mood disorder; D61.818 Other pancytopenia; K70.30 Alcoholic cirrhosis of liver without ascites; K70.0 Alcoholic fatty liver; I10 Essential (primary) hypertension; F41.9 Anxiety disorder, unspecified; F51.04 Psychophysiologic insomnia; M19.90 Unspecified osteoarthritis, unspecified site; F06.30 Mood disorder due to known physiological condition, unspecified; K70.10 Alcoholic hepatitis without ascites; K29.20 Alcoholic gastritis without bleeding; K59.00 Constipation, unspecified; Z91.14 Patient's other noncompliance with medication regimen; Z91.11 Patient's noncompliance with dietary regimen

== ENCOUNTER 2017-05-13 12:59 | Inpatient (IN) | payer MEDICARE, OTHER ==
[2017-05-13 12:59] VITALS: BMI 24.7
[2017-05-13] MEDS ORDERED: Multivitamin (MVI) 10 ML, Thiamine 100 MG, Folic Acid 1 MG in Sodium Chloride 0.9% 1,00... IV ONE ×2 (13:44→22:57)
[2017-05-13] MEDS ORDERED: Sodium Chloride 0.9% 1,000 ML IV SCH (13:45)
--- NOTE | 2017-05-13 14:00 | ED PDOC ---
Arrival/HPI - General Chief Complaint: Back Pain Time Seen by Provider: 05/13/17 13:37 Historian: Patient - History of Present Illness Narrative History of Present Illness (Text): 05/13/17 13:50 71 year old yakut speaking female, with history of alcohol abuse, presents to the Emergency department for alcohol intoxication 1 hour prior to arrival. Patient informs depressed mood and frequent alcohol consumption secondary to the ongoing divorce process with her . Patient informs plan of moving back to [facility], however, government possession of her home due to unpaid taxes left the patient with no house to return to. Patient denies any care from family members. Patient is currently denies any fever, chills, nausea, vomiting , abdominal pain, chest pain, shortness of breath or any other somatic complaints. Patient is unclear of any suicidal ideation as repeatedly responding "agua" upon questioning. Time/Duration: 1 hour Symptom Onset: Gradual Symptom Course: Unchanged Activities at Onset: Light Context: Home Past Medical History - Provider Review Nursing Documentation Reviewed: Yes - Infectious Disease Hx of Infectious Diseases: None - Reproductive Menopause: Yes - Cardiac Hx Hypertension: Yes - Pulmonary Hx Respiratory Disorders: No - Neurological Other/Comment: facial palsy left facial droop 2014 - HEENT Hx Glaucoma: Yes - Hematological/Oncological Hx Blood Transfusions: No - Integumentary Other/Comment: bruises both knees from fall 1 wk ago getting out of a car - Musculoskeletal/Rheumatological Hx Falls: No - Gastrointestinal Hx Gastrointestinal Disorders: (colitis gastritis) - Genitourinary/Gynecological Hx Sexually Transmitted Diseases: No - Psychiatric Hx Depression: Yes Hx Emotional Abuse: No Hx Physical Abuse: No Hx Substance Use: No - Surgical History Hx Cholecystectomy: Yes - Anesthesia Hx Anesthesia Reactions: No Hx Malignant Hyperthermia: No - Suicidal Assessment Feels Threatened In Home Enviroment: No Family/Social History - Physician Review Nursing Documentation Reviewed: Yes Family/Social History: Unknown Family HX Smoking Status: Never Smoked Hx Alcohol Use: Yes Frequency of alcohol use: Socially Amount per day: 2 Hx Substance Use: No Substance used: ALCOHOL Hx Substance Use Treatment: No Allergies/Home Meds Allergies/Adverse Reactions: Allergies No Known Allergies Allergy (Verified 05/13/17 13:27) Home Medications: Home Meds Medication Instructions Recorded Confirmed Lisinopril/Hydrochlorothiazide 12.5 - 20 mg PO DAILY 12/01/16 05/13/17 [Lisinopril-Hctz 20-12.5 mg Tab] ALPRAZolam [Xanax] 0.25 mg PO BID 05/13/17 05/13/17 Spironolactone [Aldactone] 25 mg PO DAILY 05/13/17 05/13/17 Review of Systems - Physician Review All systems were reviewed & negative as marked: Yes - Review of Systems Constitutional: Normal. absent: Fevers Eyes: Normal ENT: Normal Respiratory: Normal. absent: SOB Cardiovascular: Normal. absent: Chest Pain Gastrointestinal: Normal. absent: Abdominal Pain, Diarrhea, Nausea, Vomiting Genitourinary Female: Normal Musculoskeletal: Normal Skin: Normal Neurological: Other (intoxicated) Endocrine: Normal Hemo/Lymphatic: Normal Psychiatric: Depression. absent: Suicidal Ideation (unclear) Physical Exam Vital Signs Reviewed: Yes Vital Signs Temp Pulse Resp BP Pulse Ox 05/13/17 13:55 99.4 F 110 H 18 117/85 98 05/13/17 13:17 99.4 F 114 H 20 117/85 98 Temperature: Afebrile Blood Pressure: Normal Pulse: Tachycardic Respiratory Rate: Normal Appearance: Positive for: Other (Intoxicated. Crying in bed.) Pain Distress: None Mental Status: Positive for: Alert and Oriented X 3 - Systems Exam Head: Present: Atraumatic, Normocephalic Pupils: Present: PERRL Extroacular Muscles: Present: EOMI Conjunctiva: Present: Normal Mouth: Present: Moist Mucous Membranes Neck: Present: Normal Range of Motion Respiratory/Chest: Present: Clear to Auscultation, Good Air Exchange. No: Respiratory Distress, Accessory Muscle Use Cardiovascular: Present: Regular Rate and Rhythm, Normal S1, S2. No: Murmurs Abdomen: Present: Normal Bowel Sounds. No: Tenderness, Distention, Peritoneal Signs Back: Present: Normal Inspection Upper Extremity: Present: Normal Inspection. No: Cyanosis, Edema Lower Extremity: Present: Normal Inspection. No: Edema Neurological: Present: GCS=15, CN II-XII Intact, Speech Normal Skin: Present: Warm, Dry, Normal Color. No: Rashes Psychiatric: Present: Alert, Oriented x 3, Depressed Mood, Intoxicated. No: Suicidal Ideation (unclear.) Medical Decision Making ED Course and Treatment: 05/13/17 14:05 Impression: 71 year old female presents to the Emergency department s/p intoxication. Plan: -- EKG -- Labs -- Chest X-ray -- IV Fluids -- Urine Culture -- Urinalysis -- Reassess and disposition Progress Notes: 05/13/17 14:07 EKG: Ordered, reviewed, and independently interpreted the EKG. Rate : 110 BPM Rhythm : Sinus Tachycardia. Interpretation : No ST-segment elevations or depressions, no T-wave inversions, normal intervals. 05/13/17 15:06 Chest X-ray reviewed by radiologist, shows minimal linear atelectasis both lung bases. 05/13/17 20:03 Upon reassessment, patient is heme positive with black stool. Patient is also positive for coffee ground emesis. - Lab Interpretations Lab Results: 05/13/17 14:00 05/13/17 14:00 Lab Results 05/13/17 14:00: Alcohol, Quantitative 274 H 05/13/17 14:00: Sodium 141, Potassium 4.4, Chloride 97 L, Carbon Dioxide 20 L, Anion Gap 28 H, BUN 13, Creatinine 0.6 L, Est GFR ( Amer) > 60, Est GFR ( Non-Af Amer) > 60, Random Glucose 72, Calcium 9.7, Total Bilirubin 0.5, AST 228 H D, ALT 93 H, Alkaline Phosphatase 191 H D, Lactate Dehydrogenase 551, Total Creatine Kinase 35, Troponin I < 0.01, Total Protein 7.9, Albumin 4.2, Globulin 3.8, Albumin/Globulin Ratio 1.1, Lipase 99 05/13/17 14:00: PT 11.6, INR 1.01 05/13/17 14:00: WBC 5.1, RBC 4.68, Hgb 16.0 D, Hct 45.5, MCV 97.2 D, MCH 34.2 , MCHC 35.2, RDW 14.5, Plt Count 122, MPV 9.6, Gran % 66.4, Lymph % (Auto) 25.7 , [place] % (Auto) 7.1 H, Eos % (Auto) 0.0 L, Baso % (Auto) 0.8, Gran # 3.39, Lymph # (Auto) 1.3, [place] # (Auto) 0.4, Eos # (Auto) 0.0, Baso # (Auto) 0.04 - RAD Interpretation Radiology Orders: 05/13/17 13:44 CHEST PORTABLE [RAD] Stat - Medication Orders Current Medication Orders: Sodium Chloride (Sodium Chloride 0.9%) 1,000 mls @ 100 mls/hr IV .Q10H MICHEAL Last Admin: 05/13/17 14:39 Dose: 100 mls/hr eMAR Start Stop Document 05/13/17 14:39 EAR (Rec: 05/13/17 14:41 EAR [id number]) Intravenous Solution Start Date 05/13/17 Start Time 14:40 End Date 05/13/17 End time 23:55 Total Infusion Time 555 Discontinued Medications Famotidine (Pepcid) 20 mg IVP STAT STA Stop: 05/13/17 19:24 Last Admin: 05/13/17 19:34 Dose: 20 mg IVP Administration Document 05/13/17 19:34 SS (Rec: 05/13/17 19:37 SS [id number]) Charges for Administration # of IVP Administrations 1 Multivitamins/Vitamin C 10 ml/Thiamine HCl 100 mg/ Folic Acid 1 mg/ Sodium Chloride 1,011.2 mls @ 1,000 mls/hr IV .Q1H1M ONE Stop: 05/13/17 14:44 Last Admin: 05/13/17 16:38 Dose: 1,000 mls/hr eMAR Start Stop Document 05/13/17 16:38 GMD (Rec: 05/13/17 16:38 GMD [id number]) Intravenous Solution Start Date 05/13/17 Start Time 16:38 End Date 05/13/17 End time 17:39 Total Infusion Time 61 Ondansetron HCl (Zofran Inj) 4 mg IVP STAT STA Stop: 05/13/17 19:50 - PA / HOUSEKEEPING DIRECTOR / Resident Statement MD/DO has reviewed & agrees with the documentation as recorded. - Scribe Statement The provider has reviewed the documentation as recorded by the Scribfidencio Doty. All medical record entries made by the Scribe were at my direction and personally dictated by me. I have reviewed the chart and agree that the record accurately reflects my personal performance of the history, physical exam, medical decision making, and the department course for this patient. I have also personally directed, reviewed, and agree with the discharge instructions and disposition. Disposition/Present on Arrival - Present on Arrival Any Indicators Present on Arrival: No History of DVT/PE: No History of Uncontrolled Diabetes: No Urinary Catheter: No History of Decub. Ulcer: No History Surgical Site Infection Following: None - Disposition Have Diagnosis and Disposition been Completed?: Yes Diagnosis: Alcohol abuse, Gastritis, Depression, Suicidal ideation Disposition: HOSPITALIZED Disposition Time: 20:10 Patient Plan: Admission, Telemetry Condition: GOOD Discharge Instructions (ExitCare): Alcohol Intoxication (ED), Abuse of Alcohol (ED), Alcohol Dependence (ED) Referrals: Mily Torres MD [Primary Care Provider] - Follow up with primary Forms: [facility] ([place])
[2017-05-13 14:29] LABS: BASO # 0.04 K/mm3 (0.0-2.0); BASO % 0.8 % (0.0-3.0); GRAN # 3.39 (1.4-6.5); GRAN % 66.4 % (50.0-68.0); LYMPH # 1.3 (1.2-3.4); LYMPH % 25.7 % (22.0-35.0); MEAN CELL VOLUME 97.2 fl (80.0-105.0); MEAN CORPUSCULAR HEMOGLOBIN 34.2 pg (25.0-35.0); MEAN CORPUSCULAR HGB CONC 35.2 g/dl (31.0-37.0); MEAN PLATELET VOLUME 9.6 fl (7.0-11.0); MONO # 0.4 (0.1-0.6); MONO % 7.1 % (1.0-6.0); RBC 4.68 10^6/uL (3.5-6.1); RED CELL DISTRIBUTION WIDTH 14.5 % (11.5-14.5); WHITE BLOOD COUNT 5.1 10^3/ul (4.5-11.0)
--- NOTE | 2017-05-13 14:37 | RAD ---
HISTORY: Medical Clearance COMPARISON: Comparison made with prior chest radiograph 11/30/2016. FINDINGS: LUNGS: Minimal linear atelectasis both lung bases PLEURA: No significant pleural effusion identified, no pneumothorax apparent. CARDIOVASCULAR: Normal. OSSEOUS STRUCTURES: No significant abnormalities. VISUALIZED UPPER ABDOMEN: Normal. OTHER FINDINGS: None. IMPRESSION: Minimal linear atelectasis both lung bases.
[2017-05-13 14:38] LABS: ALB/GLOB RATIO 1.1 (1.1-1.8); ALBUMIN 4.2 g/dL (3.0-4.8); ALT/SGPT 93 U/L (7-56); AST/SGOT 228 U/L (14-36); BLOOD UREA NITROGEN 13 mg/dL (7-21); CALCIUM 9.7 mg/dL (8.4-10.5); GFR AFRICAN-AMERICAN > 60; GFR NON-AFRICAN AMERICAN > 60; LIPASE 99 U/L (23-300)
[2017-05-13 14:42] LABS: INR 1.01 (0.93-1.08); PROTHROMBIN TIME 11.6 SECONDS (9.4-12.5)
[2017-05-13 14:51] LABS: TROPONIN I < 0.01 ng/mL
--- NOTE | 2017-05-13 23:12 | CP.PCM.HP ---
<Brian Villela - Last Filed: 05/14/17 02:32> History of Present Illness - History of Present Illness History of Present Illness: This patient is a 71 year old female with PMHx of EtOH Abuse, HTN and Depression who presents complaining that she is depressed and wants to . She was brought to the E.R by her . Patient states that for the past 3-4 days she has not eaten and has just been drinking alcohol. Patient is going through a divorce which she attributes her depression to. She complains of generalized body aches, tremor, dizziness, mild shortness of breath, vomiting blood, difficulty ambulating, nausea, epigastric pain, decreased urinary frequency, and blood in the stool. She denies any fever, chills, chest pain. palpitations, hematuria, dysuria. ROS: As stated above PMHx: EtOH, Depression, HTN PSHx: Denies Allergies: Denies Social Hx: EtOH Abuse, Denies tobacco or illicit drug use FamHx: Non-Contributory Meds: Reviewed PMD: Dr. Mily Torres Present on Admission - Present on Admission Any Indicators Present on Admission: No Review of Systems - Review of Systems Review of Systems: As per HPI Past Patient History - Infectious Disease Hx of Infectious Diseases: None - Past Social History Smoking Status: Never Smoked - CARDIAC Hx Hypertension: Yes - PULMONARY Hx Respiratory Disorders: No - NEUROLOGICAL Other/Comment: facial palsy left facial droop 2014 - HEENT Hx Glaucoma: Yes - HEMATOLOGICAL/ONCOLOGICAL Hx Blood Transfusions: No - INTEGUMENTARY Other/Comment: bruises both knees from fall 1 wk ago getting out of a car - MUSCULOSKELETAL/RHEUMATOLOGICAL Hx Falls: No - GASTROINTESTINAL Hx Gastrointestinal Disorders: (colitis gastritis) - GENITOURINARY/GYNECOLOGICAL Hx Sexually Transmitted Disorders: No - PSYCHIATRIC Hx Depression: Yes Hx Emotional Abuse: No Hx Physical Abuse: No Hx Substance Use: No - SURGICAL HISTORY Hx Cholecystectomy: Yes - ANESTHESIA Hx Anesthesia Reactions: No Hx Malignant Hyperthermia: No Meds Allergies/Adverse Reactions: Allergies Allergy/AdvReac Type Severity Reaction Status Date / Time No Known Allergies Allergy Verified 05/13/17 13:27 Physical Exam - Constitutional Appears: Toxic, Unkempt - Head Exam Head Exam: ATRAUMATIC, NORMAL INSPECTION, NORMOCEPHALIC - Eye Exam Eye Exam: EOMI, PERRL Pupil Exam: Miosis, PERRL - ENT Exam ENT Exam: Mucous Membranes Moist, Normal Oropharynx - Neck Exam Neck exam: Negative for: Lymphadenopathy, Thyromegaly - Respiratory Exam Respiratory Exam: Clear to Auscultation Bilateral - Cardiovascular Exam Cardiovascular Exam: Tachycardia, REGULAR RHYTHM, +S1, +S2 - GI/Abdominal Exam GI & Abdominal Exam: Hyperactive Bowel Sounds, Soft, Tenderness (Diffuse ). absent: Distended, Firm, Guarding, Organomegaly, Rebound - Rectal Exam Rectal Exam: Black Stool. absent: Hemorrhoids Additional comments: Stool Occult Positive No Tenderness Normal tone - Extremities Exam Extremities exam: Positive for: normal capillary refill. Negative for: pedal edema - Neurological Exam Neurological exam: Abnormal Gait, Alert, CN II-XII Intact, Oriented x3 Additional comments: Tremor - Psychiatric Exam Psychiatric exam: Anxious, Depressed, Suicidal Ideation - Skin Skin Exam: Dry, Intact, Normal Color, Warm Results - Vital Signs Recent Vital Signs: Last Vital Signs Temp 99.4 F 05/13/17 13:55 Pulse 110 H 05/13/17 13:55 Resp 18 05/13/17 13:55 BP 117/85 05/13/17 13:55 Pulse Ox 98 05/13/17 13:55 - Labs Result Diagrams: 05/13/17 14:00 05/13/17 14:00 Assessment & Plan - Assessment and Plan (Free Text) Assessment: 71 year old female with PMHx of HTN, EtOH Abuse and Depression. Admitted for evaluation and treatment of EtOH Abuse and Depression w/suicidal ideation . Plan: Alcohol Intoxication/Withdrawal CIWA Protocol Fall/Seizure Precautions Ativan 2 Q8 MICHEAL Ativan 2 Q4H PRN Banana Bag @ 100 mls/hr Abd Pain with Blood in Stool and Blood in Vomit DDx: GI bleed 2/2 to Alcohol gastritis and Esophageal Varices Pepcid in ED Gave 1 dose of Morphine 2 Protonix Drip Zofran PRN GI Consult (Dr. Jacobs) CBC, INR/PT/PTT NPO Depression w/ Suicidal Ideation/Anxiety Home Xanax 0.25 BID 1:1 Psych Consult (Dr. Cabrera) Hx of HTN Home Spironolactone Home Lisinopril 20 Daily Home HCTZ 12.5 PO Daily Proph Protonix SCD's Patient seen and discussed with Attending (Dr. Zaragoza) Brian Villela, PGY1 <Mila BERNSTEIN,Xander - Last Filed: 05/14/17 08:13> Results - Vital Signs Recent Vital Signs: Last Vital Signs Temp 98.2 F 05/14/17 06:00 Pulse 118 H 05/14/17 06:00 Resp 20 05/14/17 06:00 BP 143/92 H 05/14/17 06:00 Pulse Ox 98 05/14/17 06:00 - Labs Result Diagrams: 05/14/17 07:00 05/13/17 14:00 Labs: Laboratory Results - last 24 hr 05/14/17 05/14/17 05/14/17 06:30 07:00 07:00 WBC 5.5 RBC 3.89 Hgb 12.8 D Hct 37.9 MCV 97.4 MCH 32.9 MCHC 33.8 RDW 14.6 H Plt Count 86 L MPV 9.8 Gran % 66.9 Lymph % (Auto) 23.1 [place] % (Auto) 9.1 H Eos % (Auto) 0.4 L Baso % (Auto) 0.5 Gran # 3.68 Lymph # (Auto) 1.3 [place] # (Auto) 0.5 Eos # (Auto) 0.0 Baso # (Auto) 0.03 PT 11.9 INR 1.03 APTT 29.6 Stool Occult Blood Positive H Attending/Attestation - Attestation I have personally seen and examined this patient.: Yes I have fully participated in the care of the patient.: Yes I have reviewed all pertinent clinical information: Yes Notes (Text): -I agree with the above H&P completed by the resident physician with the following additions and/or changes: -The patient is a 71 year old woman with a history of chronic alcohol abuse, HTN and depression, who is being admitted with acute alcohol intoxication, suicidal ideation and acute UGIB (PUD vs Carrie Romano tear). She is hemodynamically stable with a normal hemoglobin on ED labs. She will be started on Protonix drip and kept NPO. GI has been consulted. She'll receive banana bag for maintenance IVF's. Also, she will be placed on Librium 25mg PO TID as well as PRN IV Ativan (alongside seizure precautions). Lastly, a 1:1 sitter and psychiatry consult have also been ordered.
[2017-05-13] MEDS: Pantoprazole 40mg/100mL NS 40 MG/100 ML BAG IVPB SCH (23:29)
[2017-05-14] MEDS ORDERED: Morphine 2 mg/ml ISec IVP STA (02:11)
[2017-05-14] MEDS: Folic Acid 1 MG, Thiamine 100 MG, Multivitamin (MVI) 10 ML in Dextrose 5% In Water 1,00... IV SCH ×3 (02:19→20:01)
[2017-05-14] MEDS: Pantoprazole 40mg/100mL NS 40 MG/100 ML BAG IVPB SCH ×4 (04:30→20:00)
[2017-05-14 07:33] LABS: BASO # 0.03 K/mm3 (0.0-2.0); BASO % 0.5 % (0.0-3.0); EOS % 0.4 % (1.5-5.0); GRAN # 3.68 (1.4-6.5); GRAN % 66.9 % (50.0-68.0); LYMPH # 1.3 (1.2-3.4); LYMPH % 23.1 % (22.0-35.0); MEAN CELL VOLUME 97.4 fl (80.0-105.0); MEAN CORPUSCULAR HEMOGLOBIN 32.9 pg (25.0-35.0); MEAN CORPUSCULAR HGB CONC 33.8 g/dl (31.0-37.0); MEAN PLATELET VOLUME 9.8 fl (7.0-11.0); MONO # 0.5 (0.1-0.6); MONO % 9.1 % (1.0-6.0); RBC 3.89 10^6/uL (3.5-6.1); RED CELL DISTRIBUTION WIDTH 14.6 % (11.5-14.5); WHITE BLOOD COUNT 5.5 10^3/ul (4.5-11.0)
[2017-05-14 07:47] LABS: INR 1.03 (0.93-1.08); PARTIAL THROMBOPLASTIN TIME 29.6 Seconds (25.1-36.5); PROTHROMBIN TIME 11.9 SECONDS (9.4-12.5)
[2017-05-14 07:59] LABS: HEMOGLOBIN 12.8 g/dL (12.0-16.0)
[2017-05-14 08:29] LABS: ALBUMIN 3.1 g/dL (3.0-4.8); ALT/SGPT 67 U/L (7-56); AST/SGOT 152 U/L (14-36); BLOOD UREA NITROGEN 12 mg/dL (7-21); CALCIUM 8.2 mg/dL (8.4-10.5); GFR AFRICAN-AMERICAN > 60; GFR NON-AFRICAN AMERICAN > 60; MAGNESIUM 1.8 mg/dL (1.7-2.2)
--- NOTE | 2017-05-14 09:50 | CARD ---
APPROVED REPORT EKG Measurement Heart [id number] <Conclusion> Sinus tachycardia Otherwise normal ECG No change except faster rate
[2017-05-14 10:02] LABS: URINE BILIRUBIN SMALL (NEGATIVE); URINE BLOOD LARGE (NEGATIVE); URINE GLUCOSE (UA) NEGATIVE (NEGATIVE); URINE LEUKOCYTE ESTERASE NEGATIVE Leu/uL (NEGATIVE); URINE NITRATE NEGATIVE (NEGATIVE); URINE PROTEIN TRACE mg/dL (<30 mg/dL); URINE UROBILINOGEN 0.2 E.U./dL (<1 E.U./dL)
[2017-05-14 10:26] LABS: BARBITURATES, UR NEGATIVE (NEGATIVE); BENZODIAZEPINES, UR NEGATIVE (NEGATIVE); OPIATES, UR POSITIVE (NEGATIVE); PHENCYCLIDINE, UR NEGATIVE (NEGATIVE)
[2017-05-14 10:32] LABS: URINE APPEARANCE SL CLOUDY (CLEAR); URINE COLOR YELLOW (YELLOW)
[2017-05-14 10:41] LABS: URINE RBC 20 - 25 /hpf (0-2); URINE WBC 0 - 2 /hpf (0-6)
[2017-05-14 10:42] LABS: URINE BACTERIA MOD (NEG)
--- NOTE | 2017-05-14 22:07 | CON ---
DATE: HISTORY OF PRESENT ILLNESS: The patient in 71-year-old female with history of alcohol use disorder, multiple medical issues including liver problems as well as history of alcohol withdrawal symptoms. Patient has multiple social issues including recent separation from her because her had an affair with another female, leads her to relapse on alcohol for past month. Psych consult was called for evaluation of depressive symptoms. Patient was admitted on the medical side for alcohol intoxication and alcohol withdrawals. Patient is very familiar to this technical publications writer from the previous admission on the medical side. This technical publications writer was the business solutions consultant on the case. Patient presented in the same way as now, had severe alcohol withdrawal symptoms, upper extremity shakiness as well as blood pressure elevation as well as physical signs of alcohol withdrawals. Patient was examined today with the help of a Danish-speaking nurse. Patient remembers this technical publications writer, but does not remember her name. Patient reported her left her for about a month. Patient reported that she was not able to locate him. She was calling to friends and police. Somebody told her that he went to [place], but at present moment, patient reports that they are in the process of separation. Patient also reported that she had a chance to speak to him and he told her that he found another female and at present moment, patient is waiting for a final decision from his side about possible family reunion or final separation. Patient reported that this situation make her feel very depressed, hopeless and helpless. Patient reported that she relapsed on alcohol. Patient reported for 4 months, she was not drinking any alcohol, but he relapsed about 2 weeks ago. Patient reported that she is drinking rum on daily basis about a pint as well as beer. Patient reported that she has blackouts and withdrawal symptoms. Patient was opened to go to inpatient rehab after medical clearance. PHYSICAL EXAMINATION: VITAL SIGNS: Reviewed. Temperature is 98.2, pulse is 118, blood pressure 143/92, respiration 20 and oxygen saturation is 98. MEDICATIONS: Reviewed. Folic acid, multivitamins and thiamine, Zestril. Ativan will be given to her 2 mg four times a day scheduled and 2 mg q. 4 hours p.r.n. for alcohol withdrawal symptoms, Zofran, Protonix, Ambien will be given to her at the nighttime. LABORATORY DATA: Reviewed. Most recent from . Chemistry reviewed. AST and ALT elevated, but it is trending down 152 and 67 respectively. Fecal occult blood was positive. Urinalysis showed blood large and small bilirubin toxicology, opioids positive for 19th and 274 alcohol level at the time of admission. MENTAL STATUS EXAMINATION: Patient presented to be sleepy, but easily arousable, upper extremities shakiness, intermittent eye contact. Face looked to be a typical alcoholic face, round, red as well as puffiness observed, intermittent eye contact. Speech was under productive, low volume. Mood described as very depressed and hopeless. Affect flat, mood congruent. Thought process concrete. Thought content, patient denied visual, auditory, tactile hallucinations. Denied paranoid ideation. Patient denied thoughts of harming herself, but she wish to be . Denied intent or plan to kill herself. Insight and judgment are poor. Impulses are unpredictable. IMPRESSION: Rule out major depressive disorder. Patient relapsed on alcohol, alcohol use disorder, alcohol withdrawal syndrome. Rule out adjustment disorder with depressed and anxious mood. PLAN: Patient was started with one-to-one, this technical publications writer is not sure, possible for suicidal ideation. Multivitamins, thiamine and folic acid needs to be continued, IV hydration as well recommended. Ativan was started 2 mg four times to schedule and p.r.n. Social work evaluation is recommended for possible inpatient rehab. Continue current medication and management. We will follow up and advise accordingly. Thank you very much for letting me participate in the care of your patient. Monitor vital signs please. Pam Mathews MD
[2017-05-15] MEDS: Pantoprazole 40mg/100mL NS 40 MG/100 ML BAG IVPB SCH ×4 (01:58→12:12)
--- NOTE | 2017-05-15 03:00 | CP.PCM.PN ---
<Ryan Urrutia - Last Filed: 05/15/17 02:57> Subjective - Date & Time of Evaluation Date of Evaluation: 05/14/17 Time of Evaluation: 06:50 - Subjective Subjective: Patient seen and examined at bedside with one on one in no acute distress on her phone talking to her . Patient states she feels better now has some slight abdominal discomfort. Denies suicidal/homicidal ideations, nausea, vomiting, nausea, fevers, chills, dizziness, shortness of breath, chest pain, cough. Objective - Vital Signs/Intake and Output Vital Signs (last 24 hours): Temp Pulse Resp BP Pulse Ox 98 F 97 H 20 124/80 98 05/15/17 00:00 05/15/17 00:00 05/15/17 00:00 05/15/17 00:00 05/15/17 00:00 Intake and Output: 05/14/17 05/15/17 18:59 06:59 Intake Total 0 Output Total 4 Balance -4 - Medications Medications: Current Medications Pantoprazole Sodium (Protonix 40mg Ivpb) 40 mg in 100 mls @ 20 mls/hr IVPB .Q5H [facility] Last Admin: 05/15/17 01:58 Dose: 20 mls/hr Folic Acid 1 mg/ Thiamine HCl 100 mg/ Multivitamins/Vitamin C 10 ml/ Dextrose 1 ,011.2 mls @ 100 mls/hr IV .Q10H7M [facility] Last Admin: 05/14/17 20:01 Dose: 100 mls/hr Lisinopril (Zestril) 20 mg PO DAILY [facility] Last Admin: 05/14/17 11:41 Dose: Not Given Lorazepam (Ativan) 2 mg IVP Q4H PRN; Protocol PRN Reason: Symptoms of alcohol withdrawl Last Admin: 05/15/17 02:01 Dose: 2 mg Lorazepam (Ativan) 2 mg PO QID [facility] PRN Reason: Protocol Last Admin: 05/14/17 23:01 Dose: Not Given Ondansetron HCl (Zofran Inj) 4 mg IVP Q6H PRN PRN Reason: Nausea/Vomiting Zolpidem Tartrate (Ambien) 5 mg PO HS PRN; Protocol PRN Reason: Insomnia - Labs Labs: 05/14/17 07:00 05/14/17 07:00 PT 11.9 SECONDS (9.4-12.5) 05/14/17 07:00 INR 1.03 (0.93-1.08) 05/14/17 07:00 APTT 29.6 Seconds (25.1-36.5) 05/14/17 07:00 - Constitutional Appears: Non-toxic, No Acute Distress - Head Exam Head Exam: ATRAUMATIC, NORMAL INSPECTION, NORMOCEPHALIC - Eye Exam Eye Exam: EOMI, Normal appearance - ENT Exam ENT Exam: Mucous Membranes Moist, Normal Exam - Neck Exam Neck Exam: Normal Inspection - Respiratory Exam Respiratory Exam: Clear to Ausculation Bilateral, NORMAL BREATHING PATTERN. absent: Rales, Rhonchi, Wheezes - Cardiovascular Exam Cardiovascular Exam: REGULAR RHYTHM, +S1, +S2 - GI/Abdominal Exam GI & Abdominal Exam: Soft, Tenderness (in sternal and episgatric region upon palpation), Normal Bowel Sounds - Rectal Exam Rectal Exam: NORMAL INSPECTION - Back Exam Back Exam: NORMAL INSPECTION - Neurological Exam Neurological Exam: Alert, Awake, CN II-XII Intact - Psychiatric Exam Psychiatric exam: Normal Affect - Skin Skin Exam: Intact, Normal Color, Warm Assessment and Plan - Assessment and Plan (Free Text) Assessment: 71 year old female with past medical history of hypertension, alcohol abuse and Depression. Admitted for evaluation and treatment of alcohol abuse and Depression with suicidal ideation . Plan: Alcohol Intoxication/Withdrawal -[facility] Protocol -Fall/Seizure Precautions -Continue with Ativan 2 Q8 MICHEAL Ativan 2 Q4H PRN -Continue with banana Bag @ 100 mls/hr Abd Pain with Blood in Stool and Blood in Vomit DDx: GI bleed 2/2 to Alcohol gastritis -Transaminitis downtrending -Protonix Drip -Zofran PRN -GI Consult Dr. Rowe -NPO Diarrhea C-diff negative for antigen/toxin Depression w/ Suicidal Ideation/Anxiety Home Xanax 0.25 BID 1:[address] Mathews Hx of HTN -Home Spironolactone -Home Lisinopril 20 Daily -Home HCTZ 12.5 PO Daily Proph Protonix SCD's Patient seen and discussed with Attending Dr. Amor Urrutia PGY1 <Pravin Chinchilla - Last Filed: 05/15/17 16:10> Objective - Vital Signs/Intake and Output Vital Signs (last 24 hours): Temp Pulse Resp BP Pulse Ox 98 F 94 H 20 123/83 95 05/15/17 12:00 05/15/17 12:00 05/15/17 12:00 05/15/17 12:00 05/15/17 08:00 Intake and Output: 05/15/17 05/15/17 06:59 18:59 Intake Total 1440 0 Output Total 600 Balance 1440 -600 - Medications Medications: Current Medications Pantoprazole Sodium (Protonix 40mg Ivpb) 40 mg in 100 mls @ 20 mls/hr IVPB .Q5H [facility] Last Admin: 05/15/17 12:12 Dose: 20 mls/hr Folic Acid 1 mg/ Thiamine HCl 100 mg/ Multivitamins/Vitamin C 10 ml/ Dextrose 1 ,011.2 mls @ 100 mls/hr IV .Q10H7M [facility] Last Admin: 05/15/17 12:04 Dose: 100 mls/hr Lisinopril (Zestril) 20 mg PO DAILY [facility] Last Admin: 05/15/17 10:00 Dose: Not Given Lorazepam (Ativan) 2 mg IVP Q4H PRN; Protocol PRN Reason: Symptoms of alcohol withdrawl Last Admin: 05/15/17 05:32 Dose: 2 mg Lorazepam (Ativan) 2 mg PO QID [facility] PRN Reason: Protocol Last Admin: 05/15/17 09:59 Dose: Not Given Ondansetron HCl (Zofran Inj) 4 mg IVP Q6H PRN PRN Reason: Nausea/Vomiting Zolpidem Tartrate (Ambien) 5 mg PO HS PRN; Protocol PRN Reason: Insomnia - Labs Labs: 05/15/17 07:00 05/15/17 07:00 PT 11.9 SECONDS (9.4-12.5) 05/14/17 07:00 INR 1.03 (0.93-1.08) 05/14/17 07:00 APTT 29.6 Seconds (25.1-36.5) 05/14/17 07:00 Attending/Attestation - Attestation I have personally seen and examined this patient.: Yes I have fully participated in the care of the patient.: Yes I have reviewed all pertinent clinical information, including history, physical exam and plan: Yes Notes (Text): 05/15/17 16:07 attending note; Patient seen and examined with resident. Patient is a 71-year-old female admitted with depression/suicidal ideation.Patient is currently on one-to-one observation. psychiatric evaluation requested. Patient also had significant alcohol consumption. Monitor for withdrawal symptoms. Continue CIWA protocol. continue IV Ativan. Seizure precautions/aspiration precautions. complete alcohol cessation is strongly recommended. History of hematemesis one episode. Resolved. GI evaluation requested. Continue IV fluids. Continue GI prophylaxis. Upon discharge the patient will follow up with PMD of choice.
[2017-05-15] MEDS ORDERED: Lidocaine 5% Patch TD ONE (05:12)
[2017-05-15] MEDS: Folic Acid 1 MG, Thiamine 100 MG, Multivitamin (MVI) 10 ML in Dextrose 5% In Water 1,00... IV SCH ×4 (06:12→23:47)
--- NOTE | 2017-05-15 06:30 | CP.PCM.PN ---
<Ryan Urrutia - Last Filed: 05/15/17 16:45> Subjective - Date & Time of Evaluation Date of Evaluation: 05/15/17 Time of Evaluation: 06:10 - Subjective Subjective: Patient seen and examined at bedside in no acute distress currently. Stated that overnight she was awoken from severe back pain which caused her to become anxious and become short of breath. States that she received medication and is now feeling better. Still feeling anxious and depressed because her came over and they both discussed divorce; makes it clear that he is the one who wants the divorce. Denies abdominal pain, nausea, vomiting, diarrhea, cough , fever, chills. Objective - Vital Signs/Intake and Output Vital Signs (last 24 hours): Temp Pulse Resp BP Pulse Ox 98 F 103 H 20 124/80 98 05/15/17 00:00 05/15/17 06:00 05/15/17 00:00 05/15/17 00:00 05/15/17 00:00 Intake and Output: 05/14/17 05/15/17 18:59 06:59 Intake Total 0 1440 Output Total 4 Balance -4 1440 - Medications Medications: Current Medications Pantoprazole Sodium (Protonix 40mg Ivpb) 40 mg in 100 mls @ 20 mls/hr IVPB .Q5H [facility] Last Admin: 05/15/17 05:30 Dose: 20 mls/hr Folic Acid 1 mg/ Thiamine HCl 100 mg/ Multivitamins/Vitamin C 10 ml/ Dextrose 1 ,011.2 mls @ 100 mls/hr IV .Q10H7M [facility] Last Admin: 05/15/17 06:12 Dose: Not Given Lisinopril (Zestril) 20 mg PO DAILY [facility] Last Admin: 05/14/17 11:41 Dose: Not Given Lorazepam (Ativan) 2 mg IVP Q4H PRN; Protocol PRN Reason: Symptoms of alcohol withdrawl Last Admin: 05/15/17 05:32 Dose: 2 mg Lorazepam (Ativan) 2 mg PO QID [facility] PRN Reason: Protocol Last Admin: 05/14/17 23:01 Dose: Not Given Ondansetron HCl (Zofran Inj) 4 mg IVP Q6H PRN PRN Reason: Nausea/Vomiting Zolpidem Tartrate (Ambien) 5 mg PO HS PRN; Protocol PRN Reason: Insomnia - Labs Labs: 05/14/17 07:00 05/14/17 07:00 PT 11.9 SECONDS (9.4-12.5) 05/14/17 07:00 INR 1.03 (0.93-1.08) 05/14/17 07:00 APTT 29.6 Seconds (25.1-36.5) 05/14/17 07:00 - Constitutional Appears: Non-toxic, No Acute Distress - Head Exam Head Exam: ATRAUMATIC, NORMAL INSPECTION, NORMOCEPHALIC - Eye Exam Eye Exam: EOMI, Normal appearance - ENT Exam ENT Exam: Mucous Membranes Moist, Normal Exam - Respiratory Exam Respiratory Exam: Clear to Ausculation Bilateral, NORMAL BREATHING PATTERN. absent: Rhonchi, Wheezes - Cardiovascular Exam Cardiovascular Exam: REGULAR RHYTHM, +S1, +S2 - GI/Abdominal Exam GI & Abdominal Exam: Soft, Tenderness, Normal Bowel Sounds - Back Exam Back Exam: paraspinal tenderness, tenderness - Neurological Exam Neurological Exam: Alert, Awake, Oriented x3 - Psychiatric Exam Psychiatric exam: Anxious, Depressed - Skin Skin Exam: Intact, Normal Color, Warm Assessment and Plan - Assessment and Plan (Free Text) Assessment: 71 year old female with past medical history of hypertension, alcohol abuse and Depression. Admitted for evaluation and treatment of alcohol abuse and Depression with suicidal ideation. Plan: Alcohol Intoxication/Withdrawal -Continue CIWA Protocol -Continue with Fall/Seizure Precautions -Continue with Ativan 2 Q8 MICHEAL Ativan 2 Q4H PRN -Continue with banana Bag @ 100 mls/hr Abd Pain with Blood in Stool and Blood in Vomit DDx: GI bleed 2/2 to Alcohol gastritis -Transaminitis downtrending -Protonix dosage decreased due to thrombocytopenia, if continues, consider switching to pepcid -Abdominal ultrasound reveals hepatic steatosis -Zofran PRN -GI Consulted; Dr. Rowe -NPO Diarrhea -C-diff negative for antigen/toxin Depression w/ Suicidal Ideation/Anxiety -Home Xanax 0.25 BID -1:1; discontinued -Psych Consult Dr. Mathews; states patient might benefit from alcohol rehabilitation Hx of HTN -Home Spironolactone -Home Lisinopril 20 Daily -Home HCTZ 12.5 PO Daily Proph -Protonix -SCD's Patient seen and discussed with Attending Dr. Amor Urrutia PGY1 <Pravin Chinchilla - Last Filed: 05/15/17 18:33> Objective - Vital Signs/Intake and Output Vital Signs (last 24 hours): Temp Pulse Resp BP Pulse Ox 97.9 F 104 H 16 123/73 99 05/15/17 18:17 05/15/17 18:17 05/15/17 18:17 05/15/17 18:17 05/15/17 18:17 Intake and Output: 05/15/17 05/15/17 06:59 18:59 Intake Total 1440 0 Output Total 1550 Balance 1440 -1550 - Medications Medications: Current Medications Folic Acid 1 mg/ Thiamine HCl 100 mg/ Multivitamins/Vitamin C 10 ml/ Dextrose 1 ,011.2 mls @ 100 mls/hr IV .Q10H7M [facility] Last Admin: 05/15/17 12:04 Dose: 100 mls/hr Lisinopril (Zestril) 20 mg PO DAILY [facility] Last Admin: 05/15/17 10:00 Dose: Not Given Lorazepam (Ativan) 2 mg IVP Q4H PRN; Protocol PRN Reason: Symptoms of alcohol withdrawl Last Admin: 05/15/17 05:32 Dose: 2 mg Lorazepam (Ativan) 2 mg PO QID [facility] PRN Reason: Protocol Last Admin: 05/15/17 09:59 Dose: Not Given Ondansetron HCl (Zofran Inj) 4 mg IVP Q6H PRN PRN Reason: Nausea/Vomiting Pantoprazole Sodium (Protonix Inj) 20 mg IVP DAILY [facility] Zolpidem Tartrate (Ambien) 5 mg PO HS PRN; Protocol PRN Reason: Insomnia - Labs Labs: 05/15/17 07:00 05/15/17 07:00 PT 11.9 SECONDS (9.4-12.5) 05/14/17 07:00 INR 1.03 (0.93-1.08) 05/14/17 07:00 APTT 29.6 Seconds (25.1-36.5) 05/14/17 07:00 Attending/Attestation - Attestation I have personally seen and examined this patient.: Yes I have fully participated in the care of the patient.: Yes I have reviewed all pertinent clinical information, including history, physical exam and plan: Yes Notes (Text): 05/15/17 18:28 attending note; Patient seen and examined with resident. Patient is a 71-year-old female admitted with depression/suicidal ideation. psychiatric evaluation appreciated. One-to-one discontinued. Patient also had significant alcohol consumption. Monitor for withdrawal symptoms. Continue CIWA protocol. continue IV Ativan. Seizure precautions/aspiration precautions. complete alcohol cessation is strongly recommended. case discussed with major case detective for possible alcohol rehabilitation placement. History of hematemesis one episode. Resolved. GI evaluation appreciated. Plan for EGD today. Continue IV fluids. Continue GI prophylaxis. Upon discharge the patient will follow up with PMD of choice.
[2017-05-15 07:37] LABS: BASO # 0.01 K/mm3 (0.0-2.0); BASO % 0.4 % (0.0-3.0); EOS % 0.7 % (1.5-5.0); GRAN # 1.77 (1.4-6.5); GRAN % 63.2 % (50.0-68.0); HEMOGLOBIN 12.9 g/dL (12.0-16.0); LYMPH # 0.8 (1.2-3.4); LYMPH % 28.2 % (22.0-35.0); MEAN CELL VOLUME 98.5 fl (80.0-105.0); MEAN CORPUSCULAR HEMOGLOBIN 32.6 pg (25.0-35.0); MEAN CORPUSCULAR HGB CONC 33.1 g/dl (31.0-37.0); MEAN PLATELET VOLUME 10.2 fl (7.0-11.0); MONO # 0.2 (0.1-0.6); MONO % 7.5 % (1.0-6.0); RBC 3.96 10^6/uL (3.5-6.1)
[2017-05-15 07:49] LABS: WHITE BLOOD COUNT 2.8 10^3/ul (4.5-11.0)
[2017-05-15 08:16] LABS: ALT/SGPT 52 U/L (7-56); AST/SGOT 120 U/L (14-36); BLOOD UREA NITROGEN 6 mg/dL (7-21); CALCIUM 8.8 mg/dL (8.4-10.5); GFR AFRICAN-AMERICAN > 60; GFR NON-AFRICAN AMERICAN > 60
--- NOTE | 2017-05-15 11:16 | US ---
HISTORY: epigastric abdominal pain COMPARISON: Abdomen pelvis CT with contrast 12/01/2016. TECHNIQUE: Sonographic evaluation of the abdomen. FINDINGS: LIVER: Measures 15.7 cm. Increased echogenicity of the liver parenchyma diffusely. No definite mass. No intrahepatic bile duct dilatation. GALLBLADDER: Nonvisualized status post prior cholecystectomy once again. COMMON BILE DUCT: Measures 4.0 mm. No stones. No dilatation. PANCREAS: The pancreas is limited in visualization due to body habitus and overlying bowel gas. The pancreatic body appears grossly nonfocal. RIGHT KIDNEY: Measures 10.7cm. Normal echogenicity. No calculus, mass, or hydronephrosis. LEFT KIDNEY: Measures 11.1cm. Normal echogenicity. No calculus, mass, or hydronephrosis. SPLEEN: Normal in size and contour. No mass. AORTA: No aneurysmal dilatation. IVC: Unremarkable. OTHER FINDINGS: None. IMPRESSION: Reiteration of hepatic steatosis without definitive mass appreciated. No prominent intrahepatic biliary duct dilatation. Prior cholecystectomy. Partial imaging of the pancreas. Remainder of the the examination appears unremarkable.
--- NOTE | 2017-05-15 11:30 | CON ---
DATE: This patient was seen and evaluated earlier today. The patient's was at bedside. HISTORY OF PRESENT ILLNESS: This is a 71-year-old patient with a long history of ETOH abuse, depression, and hypertension presented to the Emergency Room with complaints of some abdominal pain. The patient's last drink was the day before she came to the emergency room. PAST MEDICAL HISTORY: Other past medical history is significant for hypertension, depression, alcohol use. ALLERGIES: NO KNOWN DRUG ALLERGIES. SOCIAL HISTORY: Positive for alcohol use. Denies smoking. REVIEW OF SYSTEMS: Positive as above. Other systems reviewed. PHYSICAL EXAMINATION VITAL SIGNS: Temperature is 98.4, pulse 102, blood pressure is 132/83, respirations 20. HEENT: Atraumatic, anicteric. NECK: Supple. HEART: S1 and S2 heard. LUNGS: Bilateral air entry present. ABDOMEN: Soft. There is mild tenderness present in the epigastric area. EXTREMITIES: No cyanosis, no clubbing. NEUROLOGICAL: Alert, oriented, moves all the extremities. LABORATORY DATA: Hemoglobin 12.8, hematocrit 37.9, WBC 5.5, platelets 86,000. Chemistry showed AST 152, ALT 87. The patient had a CAT scan done in November 2016, which was reviewed. IMPRESSION: This is a 71-year-old patient with a long history of alcohol abuse, hypertension, depression who presented with abdominal pain and also, bright red dark stool. History is mainly from the patient and also, the patient's who was at bedside and review of the chart. The differential diagnosis for dark stools did include GI bleeding, rule out right-sided colonic bleeding versus upper GI source also should be considered. The patient has a long history of alcohol use. Differential diagnosis include: 1. Peptic ulcer disease, bleeding and also, erosive esophagitis to be considered. Right-sided colonic diverticular bleeding and AVM also should be considered in differential diagnosis. 2. The patient has elevated LFTs and mainly AST is more than ALT. Likelihood of alcoholic hepatitis to be considered. 3. Other comorbidities include depression, hypertension. The patient has now developed thrombocytopenia, could be alcohol induced. We will continue only low dose PPI, monitor for the DT. We will consider upper GI endoscopy of if there is any active bleeding, we will consider emergency endoscopic evaluation. Thank you very much for allowing us to participate in the care of the patient. Fransisco Frank MD
[2017-05-15 12:46] LABS: HEPATITIS B SURFACE AG Negative (NEGATIVE)
[2017-05-15 12:52] LABS: HEPATITIS A IGM NEGATIVE (NEGATIVE); HEPATITIS B CORE AB NEGATIVE (NEGATIVE)
[2017-05-15 13:04] LABS: HEPATITIS C ANTIBODY NEGATIVE (NEGATIVE)
[2017-05-15] MEDS ORDERED: Propofol 10 mg/ml Inj (20 ML) ONE (17:27)
[2017-05-16 07:15] LABS: BASO # 0.01 K/mm3 (0.0-2.0); BASO % 0.4 % (0.0-3.0); EOS % 1.5 % (1.5-5.0); GRAN # 1.46 (1.4-6.5); GRAN % 54.3 % (50.0-68.0); HEMOGLOBIN 12.7 g/dL (12.0-16.0); LYMPH # 0.9 (1.2-3.4); LYMPH % 33.8 % (22.0-35.0); MEAN CELL VOLUME 98.5 fl (80.0-105.0); MEAN CORPUSCULAR HEMOGLOBIN 32.6 pg (25.0-35.0); MEAN CORPUSCULAR HGB CONC 33.1 g/dl (31.0-37.0); MEAN PLATELET VOLUME 10.7 fl (7.0-11.0); MONO # 0.3 (0.1-0.6); RBC 3.9 10^6/uL (3.5-6.1)
[2017-05-16 07:43] LABS: ALT/SGPT 53 U/L (7-56); AST/SGOT 119 U/L (14-36); BLOOD UREA NITROGEN 4 mg/dL (7-21); CALCIUM 9.1 mg/dL (8.4-10.5); GFR AFRICAN-AMERICAN > 60; GFR NON-AFRICAN AMERICAN > 60
[2017-05-16 07:46] LABS: WHITE BLOOD COUNT 2.7 10^3/ul (4.5-11.0)
--- NOTE | 2017-05-16 08:13 | CP.PCM.PN ---
<Ryan Urrutia - Last Filed: 05/16/17 13:53> Subjective - Date & Time of Evaluation Date of Evaluation: 05/16/17 Time of Evaluation: 05:45 - Subjective Subjective: Patient seen and examined at bedside in no acute distress. Patient states tramadol helped the most with her body aches. Now that patient is able to eat she is making bowel movements and voiding. Admits to bouts of dizziness, found to have orthostatic hypotension. Denies chest pain, abdominal pain, headaches.admits to depression due to divorce. requests outpatient psychologist referral. Wants to go home since there will be no one to take care of her pets. Objective - Vital Signs/Intake and Output Vital Signs (last 24 hours): Temp Pulse Resp BP Pulse Ox 98.0 F 83 19 130/84 95 05/16/17 05:55 05/16/17 06:00 05/16/17 05:55 05/16/17 05:55 05/16/17 05:55 Intake and Output: 05/16/17 05/16/17 06:59 18:59 Intake Total 2560 Output Total 0 Balance 2560 - Medications Medications: Current Medications Chlordiazepoxide (Librium) 25 mg PO Q8 PRN; Protocol PRN Reason: Anxiety Folic Acid 1 mg/ Thiamine HCl 100 mg/ Multivitamins/Vitamin C 10 ml/ Dextrose 1 ,011.2 mls @ 100 mls/hr IV .Q10H7M [facility] Last Admin: 05/15/17 23:47 Dose: 100 mls/hr Lisinopril (Zestril) 20 mg PO DAILY [facility] Last Admin: 05/15/17 19:03 Dose: 20 mg Lorazepam (Ativan) 2 mg IVP Q4H PRN; Protocol PRN Reason: Symptoms of alcohol withdrawl Last Admin: 05/16/17 00:59 Dose: 2 mg Lorazepam (Ativan) 1 mg PO QID [facility] PRN Reason: Protocol Ondansetron HCl (Zofran Inj) 4 mg IVP Q6H PRN PRN Reason: Nausea/Vomiting Pantoprazole Sodium (Protonix Inj) 20 mg IVP DAILY [facility] Zolpidem Tartrate (Ambien) 5 mg PO HS PRN; Protocol PRN Reason: Insomnia Last Admin: 05/15/17 22:50 Dose: 5 mg - Labs Labs: 05/16/17 06:30 05/16/17 06:30 PT 11.9 SECONDS (9.4-12.5) 05/14/17 07:00 INR 1.03 (0.93-1.08) 05/14/17 07:00 APTT 29.6 Seconds (25.1-36.5) 05/14/17 07:00 - Constitutional Appears: Non-toxic, No Acute Distress - Head Exam Head Exam: ATRAUMATIC, NORMAL INSPECTION, NORMOCEPHALIC - Eye Exam Eye Exam: EOMI, Normal appearance Pupil Exam: NORMAL ACCOMODATION - ENT Exam ENT Exam: Mucous Membranes Moist - Neck Exam Neck Exam: Full ROM, Normal Inspection - Respiratory Exam Respiratory Exam: Clear to Ausculation Bilateral, NORMAL BREATHING PATTERN - Cardiovascular Exam Cardiovascular Exam: REGULAR RHYTHM, +S1, +S2 - GI/Abdominal Exam GI & Abdominal Exam: Soft, Normal Bowel Sounds - Neurological Exam Neurological Exam: Alert, Awake, Oriented x3 - Psychiatric Exam Psychiatric exam: Depressed Assessment and Plan - Assessment and Plan (Free Text) Assessment: 71 year old female with past medical history of hypertension, alcohol abuse and Depression. Admitted for evaluation and treatment of alcohol abuse and Depression with suicidal ideation. Plan: Alcohol Intoxication/Withdrawal -Continue CIWA Protocol -Continue with Fall/Seizure Precautions as patient endorses dizziness -Lorazepam PO QID, Librium -Banana bag discontinued, will give PO multivitamin/folic acid/thiamine -Discussed is great detail with patient the effect alcohol abuse has had on her body. Also stressed the need for cessation with by joining alcoholics [facility] or going to a rehabilitation center. Abd Pain with Blood in Stool and Blood in Vomit DDx: GI bleed 2/2 to Alcohol gastritis -Transaminitis continues to downtrend -Protonix dosage decreased due to thrombocytopenia, switching to pepcid -Abdominal ultrasound reveals hepatic steatosis -Esophagogastroduodenoscopy performed reveals Gastritis, Mild duodenitis, 2 cm hiatal hernia, gastric erosions -Zofran PRN -GI Consulted; Dr. Rowe -Heart healthy diet Diarrhea -C-diff negative for antigen/toxin Depression w/ Suicidal Ideation/Anxiety -Home Xanax 0.25 BID -1:1; discontinued -Psych Consult Dr. Mathews; states patient might benefit from alcohol rehabilitation. However patient prefers to see a psychiatrist or psychologist on an outpaitent basis. Hx of HTN -Home Spironolactone -Home Lisinopril 20 Daily -Home HCTZ 12.5 PO Daily Proph -Protonix -SCD's Patient seen and discussed with Attending Dr. Amor Urrutia PGY1 <Pravin Chinchilla - Last Filed: 05/16/17 18:42> Objective - Vital Signs/Intake and Output Vital Signs (last 24 hours): Temp Pulse Resp BP Pulse Ox 98.3 F 102 H 20 128/97 H 95 05/16/17 12:00 05/16/17 12:00 05/16/17 12:00 05/16/17 12:00 05/16/17 05:55 Intake and Output: 05/16/17 05/16/17 06:59 18:59 Intake Total 2560 Output Total 0 Balance 2560 - Medications Medications: Current Medications Chlordiazepoxide (Librium) 25 mg PO Q8 PRN; Protocol PRN Reason: Anxiety Famotidine (Pepcid) 40 mg PO HS [facility] Folic Acid (Folic Acid) 1 mg PO DAILY [facility] Last Admin: 05/16/17 11:48 Dose: 1 mg Lisinopril (Zestril) 20 mg PO DAILY [facility] Last Admin: 05/16/17 09:19 Dose: 20 mg Lorazepam (Ativan) 2 mg IVP Q4H PRN; Protocol PRN Reason: Symptoms of alcohol withdrawl Last Admin: 05/16/17 00:59 Dose: 2 mg Lorazepam (Ativan) 1 mg PO QID [facility] PRN Reason: Protocol Last Admin: 05/16/17 17:44 Dose: 1 mg Magnesium Oxide (Mag-Ox) 400 mg PO BID [facility] Last Admin: 05/16/17 17:44 Dose: 400 mg Multivitamins/Minerals (Therapeutic-M Tab) 1 tab PO 0800 [facility] Last Admin: 05/16/17 11:48 Dose: 1 tab Ondansetron HCl (Zofran Inj) 4 mg IVP Q6H PRN PRN Reason: Nausea/Vomiting Thiamine HCl (Vitamin B1 Tab) 100 mg PO DAILY [facility] Last Admin: 05/16/17 11:48 Dose: 100 mg Zolpidem Tartrate (Ambien) 5 mg PO HS PRN; Protocol PRN Reason: Insomnia Last Admin: 05/15/17 22:50 Dose: 5 mg - Labs Labs: 05/16/17 06:30 05/16/17 06:30 PT 11.9 SECONDS (9.4-12.5) 05/14/17 07:00 INR 1.03 (0.93-1.08) 05/14/17 07:00 APTT 29.6 Seconds (25.1-36.5) 05/14/17 07:00 Attending/Attestation - Attestation I have personally seen and examined this patient.: Yes I have fully participated in the care of the patient.: Yes I have reviewed all pertinent clinical information, including history, physical exam and plan: Yes Notes (Text): 05/16/17 18:41 attending note; Patient seen and examined with resident. Patient is a 71-year-old female admitted with depression/suicidal ideation. psychiatric evaluation appreciated. One-to-one discontinued. Patient refused inpatient psychiatric admission. Refused alcohol rehabilitation. Patient also had significant alcohol consumption. Monitor for withdrawal symptoms. Continue CIWA protocol. continue IV Ativan. Seizure precautions/aspiration precautions. complete alcohol cessation is strongly recommended. Hematemesis; resolved. Status post EGD yesterday. Showed gastritis and duodenitis. Currently tolerating regular diet. Abdominal pain resolved. Continue GI prophylaxis. Possible discharge home tomorrow. Upon discharge the patient will follow up with PMD of choice.
--- NOTE | 2017-05-16 08:30 | PN ---
DATE: 05/15/2017 She is being seen today for a followup consultation. 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 She also has a one-to-one. The patient indicates that she has a lot of pain in her chest area and her stomach and that she also has a lot of depression. She is very depressed because her of 35 years has found someone else and has moved to [place]. Evidently when someone called him and said that she was very ill and possibly dying, he came back from [place] and he is staying with her animals in the house. The patient has a long history of alcoholism and was taking quite a bit prior to being admitted to the hospital. She originally was admitted on 05/13/2017. She was ordered for Psychiatric consults due to concerns over suicidal ideation. When I questioned the patient about this today, she indicates that she is not suicidal at this time, but she is very, very depressed. She wants her back. She is wondering if she goes for some sort of treatment for depression if that will make her understand how much she needs him and he will not leave her. Additionally, she has a court appearance tomorrow for divorce from her and she is in the hospital, so will not be able to make it, so requested a letter which I have asked Chocolatier to provide for her. I questioned the patient as to whether or not she has had any psychiatric treatment prior to this, she indicated no, but she would like to go to counseling now pointed out to her that it seems that her marriage is already over since the divorce hearing is tomorrow. The patient seems to say her being in the hospital as a way to keep her close to her, particularly since he came back from [place] while he heard she was not feeling well. The patient appears to be very dependent and additionally indicates that she does have a problem with alcohol and could use treatment for that as well. Current vital signs include a temperature of 98, a pulse of 94, a blood pressure of 123/83, respiratory rate of 20, and O2 sat of 95. The patient's urine culture indicates gram-negative silvana, preliminarily yesterday, she has C. diff in her stool. CURRENT MEDICATIONS: Include folic acid, lisinopril, and lorazepam 2 mg IV push q. 4 hours p.r.n., last given at 05:32 this morning. She is also on Ativan 2 mg p.o. four times a day, which has not been utilized. She is on Zofran, which has not been utilized, Protonix, potassium chloride, and Ambien, which has not been utilized. MENTAL STATUS EXAMINATION: The patient is alert and oriented x3. Her eye contact is fair. Her behavior is cooperative. Speech rate and volume are within normal limits. Mood is anxious. Affect is constricted. Thoughts are goal directed, but very, very preoccupied with her . She denies being suicidal or homicidal. Denies the presence of hallucinations, delusions, or paranoia. Her concentration and her focus she reports are poor. 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 Her appetite and her sleep are not normalized. DIAGNOSTIC IMPRESSION: Alcohol dependence, severe, chronic ongoing; mood disorder unspecified. PLAN: The patient denies being suicidal or homicidal and does not appear in any imminent danger of hurting herself or others. One-to-one was discontinued as she is not suicidal. The patient appears to be using the idea of hospitalization as manipulation towards her . During the time that he has left her, she has not been taking care of herself and drinking excessively. It would seem that she may not be able to live on her own at this point in time or care for herself medically. The recommendation at this time would be maybe a subacute facility to give the patient a longer period of time to recover and see what her baseline is at that point in time. We will continue to follow the patient. Thank you for the consult. Summer Addison APN Pam Mathews MD
[2017-05-16] MEDS ORDERED: Potassium Chloride 20 mEq ER Tab PO ONE (09:04)
[2017-05-16] MEDS: Magnesium Oxide 400 mg Tab UD PO SCH ×2 (09:20→17:44)
[2017-05-16] MEDS: Multivitamin With Minerals Tab PO SCH (11:48)
--- NOTE | 2017-05-16 15:53 | CP.PCM.PN ---
<Carmel Toro - Last Filed: 05/16/17 15:52> Subjective - Date & Time of Evaluation Date of Evaluation: 05/16/17 Time of Evaluation: 10:35 - Subjective Subjective: Seen and examined at the bedside earlier today, chart review. Patient had endoscopy yesterday and found to have hiatal hernia, no varices gastric erosions , mild duodenitis, and no biopsies, low platelets. Patient does report improvement of abdominal pain, tolerated oral intake. Did have a bowel movement , report dark stools, no bright red blood. No new complaints except for feeling dizzy. Medical team at bedside. Objective - Vital Signs/Intake and Output Vital Signs (last 24 hours): Temp Pulse Resp BP Pulse Ox 98.3 F 102 H 20 128/97 H 95 05/16/17 12:00 05/16/17 12:00 05/16/17 12:00 05/16/17 12:00 05/16/17 05:55 Intake and Output: 05/16/17 05/16/17 06:59 18:59 Intake Total 2560 Output Total 0 Balance 2560 - Medications Medications: Current Medications Chlordiazepoxide (Librium) 25 mg PO Q8 PRN; Protocol PRN Reason: Anxiety Famotidine (Pepcid) 40 mg PO HS [facility] Folic Acid (Folic Acid) 1 mg PO DAILY [facility] Last Admin: 05/16/17 11:48 Dose: 1 mg Lisinopril (Zestril) 20 mg PO DAILY [facility] Last Admin: 05/16/17 09:19 Dose: 20 mg Lorazepam (Ativan) 2 mg IVP Q4H PRN; Protocol PRN Reason: Symptoms of alcohol withdrawl Last Admin: 05/16/17 00:59 Dose: 2 mg Lorazepam (Ativan) 1 mg PO QID [facility] PRN Reason: Protocol Last Admin: 05/16/17 09:20 Dose: 1 mg Magnesium Oxide (Mag-Ox) 400 mg PO BID [facility] Last Admin: 05/16/17 09:20 Dose: 400 mg Multivitamins/Minerals (Therapeutic-M Tab) 1 tab PO 0800 [facility] Last Admin: 05/16/17 11:48 Dose: 1 tab Ondansetron HCl (Zofran Inj) 4 mg IVP Q6H PRN PRN Reason: Nausea/Vomiting Thiamine HCl (Vitamin B1 Tab) 100 mg PO DAILY [facility] Last Admin: 05/16/17 11:48 Dose: 100 mg Zolpidem Tartrate (Ambien) 5 mg PO HS PRN; Protocol PRN Reason: Insomnia Last Admin: 05/15/17 22:50 Dose: 5 mg - Labs Labs: 05/16/17 06:30 05/16/17 06:30 PT 11.9 SECONDS (9.4-12.5) 05/14/17 07:00 INR 1.03 (0.93-1.08) 05/14/17 07:00 APTT 29.6 Seconds (25.1-36.5) 05/14/17 07:00 - Constitutional Appears: No Acute Distress - Head Exam Head Exam: NORMOCEPHALIC - Eye Exam Eye Exam: Normal appearance. absent: Scleral icterus - ENT Exam ENT Exam: Mucous Membranes Moist - Respiratory Exam Respiratory Exam: NORMAL BREATHING PATTERN. absent: Respiratory Distress - Cardiovascular Exam Cardiovascular Exam: +S1, +S2 - GI/Abdominal Exam GI & Abdominal Exam: Soft, Normal Bowel Sounds. absent: Guarding, Tenderness, Rebound - Extremities Exam Extremities Exam: absent: Calf Tenderness - Neurological Exam Neurological Exam: Alert, Awake, Oriented x3 - Skin Skin Exam: Dry, Warm Assessment and Plan - Assessment and Plan (Free Text) Assessment: Assessment: GI bleed, complain of melena, status post endoscopy found to have mild duodenitis, gastric erosions, no esophageal varices Thrombocytopenia Alcohol abuse History of depression History of hypertension Plan: Trend LFTs which are improving Patient now placed on Pepcid Monitor H&H and for overt GI bleed On MVI folic acid thiamine On Librium Discussed with medical team. Seen and discussed with Dr. Frank. <Fransisco Frank V - Last Filed: 05/17/17 00:02> Objective - Vital Signs/Intake and Output Vital Signs (last 24 hours): Temp Pulse Resp BP Pulse Ox 97.7 F 111 H 20 156/96 H 96 05/16/17 16:00 05/16/17 16:00 05/16/17 16:00 05/16/17 16:00 05/16/17 16:00 Intake and Output: 05/16/17 05/17/17 18:59 06:59 Intake Total 540 Balance 540 - Medications Medications: Current Medications Chlordiazepoxide (Librium) 25 mg PO Q8 PRN; Protocol PRN Reason: Anxiety Famotidine (Pepcid) 40 mg PO HS [facility] Last Admin: 05/16/17 22:10 Dose: 40 mg Folic Acid (Folic Acid) 1 mg PO DAILY [facility] Last Admin: 05/16/17 11:48 Dose: 1 mg Lisinopril (Zestril) 20 mg PO DAILY [facility] Last Admin: 05/16/17 09:19 Dose: 20 mg Lorazepam (Ativan) 2 mg IVP Q4H PRN; Protocol PRN Reason: Symptoms of alcohol withdrawl Last Admin: 05/16/17 00:59 Dose: 2 mg Lorazepam (Ativan) 1 mg PO QID [facility] PRN Reason: Protocol Last Admin: 05/16/17 21:50 Dose: 1 mg Magnesium Oxide (Mag-Ox) 400 mg PO BID [facility] Last Admin: 05/16/17 17:44 Dose: 400 mg Multivitamins/Minerals (Therapeutic-M Tab) 1 tab PO 0800 [facility] Last Admin: 05/16/17 11:48 Dose: 1 tab Ondansetron HCl (Zofran Inj) 4 mg IVP Q6H PRN PRN Reason: Nausea/Vomiting Thiamine HCl (Vitamin B1 Tab) 100 mg PO DAILY [facility] Last Admin: 05/16/17 11:48 Dose: 100 mg Zolpidem Tartrate (Ambien) 5 mg PO HS PRN; Protocol PRN Reason: Insomnia Last Admin: 05/16/17 21:49 Dose: 5 mg - Labs Labs: 05/16/17 06:30 05/16/17 06:30 PT 11.9 SECONDS (9.4-12.5) 05/14/17 07:00 INR 1.03 (0.93-1.08) 05/14/17 07:00 APTT 29.6 Seconds (25.1-36.5) 05/14/17 07:00 Attending/Attestation - Attestation I have personally seen and examined this patient.: Yes I have fully participated in the care of the patient.: Yes I have reviewed all pertinent clinical information, including history, physical exam and plan: Yes Notes (Text): This is an addendum to GI progress report dictated by Carmel Toro APN.The patient was seen and examined earlier. Medical records, lab studies, imagings were reviewed. Last 24 hours events reviewed. Agreed with the above treatment plan as outlined in Carmel Toro APN's notes the with the addition of the following Patient tolerating the diet on examination abdomen soft bowel sounds present Platelet count is showing downward trend Discussed with the patient regarding the upper GI endoscopy findings Patient requires elective colonoscopic evaluation in lieu of the anemia As patient is being thrombocytopenic iand continue show downward trend, we would not contemplate preparing the patient for colonoscopy now need close monitoring of the platelet count. which has been on the downward trend 05/16/17 23:51
--- NOTE | 2017-05-17 03:47 | CP.PCM.DIS ---
<Ryan Urrutia - Last Filed: 05/17/17 17:52> Provider - Provider Date of Admission: 05/13/17 20:01 Attending physician: Pravin Chinchilla MD Primary care physician: Mily Torres MD Consults: Gastroenterology: Dr. Frank Psychiatry: Dr. Mathews Time Spent in preparation of Discharge (in minutes): 60 Diagnosis - Discharge Diagnosis (1) Alcohol abuse Status: Acute Priority: Medium (2) Depression Status: Acute Priority: High (3) Gastritis Status: Chronic Priority: High (4) Suicidal ideation Status: Acute Priority: High Hospital Course - Lab Results Lab Results: Micro Results 05/14/17 05:00 Urine,Clean Catch Urine Culture - Final Escherichia Coli 05/14/17 06:30 Stool C. difficile Antigen & Toxin A,B (M - Final Most Recent Lab Values WBC 2.7 10^3/ul (4.5-11.0) L* 05/16/17 06:30 RBC 3.90 10^6/uL (3.5-6.1) 05/16/17 06:30 Hgb 12.7 g/dL (12.0-16.0) 05/16/17 06:30 Hct 38.4 % (36.0-48.0) 05/16/17 06:30 MCV 98.5 fl (80.0-105.0) 05/16/17 06:30 MCH 32.6 pg (25.0-35.0) 05/16/17 06:30 MCHC 33.1 g/dl (31.0-37.0) 05/16/17 06:30 RDW 14.0 % (11.5-14.5) 05/16/17 06:30 Plt Count 51 10^3/uL (120.0-450.0) L 05/16/17 06:30 MPV 10.7 fl (7.0-11.0) 05/16/17 06:30 Gran % 54.3 % (50.0-68.0) 05/16/17 06:30 Lymph % (Auto) 33.8 % (22.0-35.0) 05/16/17 06:30 [place] % (Auto) 10.0 % (1.0-6.0) H 05/16/17 06:30 Eos % (Auto) 1.5 % (1.5-5.0) 05/16/17 06:30 Baso % (Auto) 0.4 % (0.0-3.0) 05/16/17 06:30 Gran # 1.46 (1.4-6.5) 05/16/17 06:30 Lymph # (Auto) 0.9 (1.2-3.4) L 05/16/17 06:30 [place] # (Auto) 0.3 (0.1-0.6) 05/16/17 06:30 Eos # (Auto) 0.0 (0.0-0.7) 05/16/17 06:30 Baso # (Auto) 0.01 K/mm3 (0.0-2.0) 05/16/17 06:30 PT 11.9 SECONDS (9.4-12.5) 05/14/17 07:00 INR 1.03 (0.93-1.08) 05/14/17 07:00 APTT 29.6 Seconds (25.1-36.5) 05/14/17 07:00 Sodium 135 mmol/L (132-148) 05/16/17 06:30 Potassium 3.2 mmol/L (3.6-5.0) L 05/16/17 06:30 Chloride 98 mmol/L (98-107) 05/16/17 06:30 Carbon Dioxide 32 mmol/L (21-33) 05/16/17 06:30 Anion Gap 8 (10-20) L 05/16/17 06:30 BUN 4 mg/dL (7-21) L 05/16/17 06:30 Creatinine 0.5 mg/dl (0.7-1.2) L 05/16/17 06:30 Est GFR ( Amer) > 60 05/16/17 06:30 Est GFR (Non-Af Amer) > 60 05/16/17 06:30 Random Glucose 110 mg/dL (70-110) 05/16/17 06:30 Hemoglobin A1c 5.6 % (4.2-6.5) 05/15/17 07:00 Calcium 9.1 mg/dL (8.4-10.5) 05/16/17 06:30 Magnesium 1.6 mg/dL (1.7-2.2) L 05/16/17 06:30 Total Bilirubin 1.0 mg/dL (0.2-1.3) 05/16/17 06:30 AST 119 U/L (14-36) H 05/16/17 06:30 ALT 53 U/L (7-56) 05/16/17 06:30 Alkaline Phosphatase 106 U/L (38-126) 05/16/17 06:30 Lactate Dehydrogenase 551 U/L (333-699) 05/13/17 14:00 Total Creatine Kinase 35 U/L (35-230) 05/13/17 14:00 Troponin I < 0.01 ng/mL 05/13/17 14:00 Total Protein 6.1 g/dL (5.8-8.3) 05/16/17 06:30 Albumin 3.0 g/dL (3.0-4.8) 05/16/17 06:30 Globulin 3.1 gm/dL 05/16/17 06:30 Albumin/Globulin Ratio 1.0 (1.1-1.8) L 05/16/17 06:30 Lipase 99 U/L (23-300) 05/13/17 14:00 Urine Color Yellow (YELLOW) 05/14/17 05:00 Urine Appearance Sl cloudy (CLEAR) 05/14/17 05:00 Urine pH 6.0 (4.7-8.0) 05/14/17 05:00 Ur Specific Pace 1.025 (1.005-1.035) 05/14/17 05:00 Urine Protein Trace mg/dL (<30 mg/dL) H 05/14/17 05:00 Urine Glucose (UA) Negative mg/dL (NEGATIVE) 05/14/17 05:00 Urine Ketones 40 mg/dL (NEGATIVE) H 05/14/17 05:00 Urine Blood Large (NEGATIVE) H 05/14/17 05:00 Urine Nitrate Negative (NEGATIVE) 05/14/17 05:00 Urine Bilirubin Small (NEGATIVE) H 05/14/17 05:00 Urine Urobilinogen 0.2 E.U./dL (<1 E.U./dL) 05/14/17 05:00 Ur Leukocyte Esterase Negative Harriet/uL (NEGATIVE) 05/14/17 05:00 Urine RBC 20 - 25 /hpf (0-2) 05/14/17 05:00 Urine WBC 0 - 2 /hpf (0-6) 05/14/17 05:00 Ur Epithelial Cells 3 - 4 /hpf (0-5) 05/14/17 05:00 Urine Bacteria Mod (NEG) 05/14/17 05:00 Urine Other Uyeast 05/14/17 05:00 Stool Occult Blood Positive (NEGATIVE) H 05/14/17 06:30 Urine Opiates Screen Positive (NEGATIVE) H 05/14/17 05:00 Urine Methadone Screen Negative (NEGATIVE) 05/14/17 05:00 Ur Barbiturates Screen Negative (NEGATIVE) 05/14/17 05:00 Ur Phencyclidine Scrn Negative (NEGATIVE) 05/14/17 05:00 Ur Amphetamines Screen Negative (NEGATIVE) 05/14/17 05:00 U Benzodiazepines Scrn Negative (NEGATIVE) 05/14/17 05:00 U Oth Cocaine Metabols Negative (NEGATIVE) 05/14/17 05:00 U Cannabinoids Screen Negative (NEGATIVE) 05/14/17 05:00 Alcohol, Quantitative 274 mg/dL (0-10) H 05/13/17 14:00 Hepatitis A IgM Ab Negative (NEGATIVE) 05/15/17 07:00 Hep Bs Antigen Negative (NEGATIVE) 05/15/17 07:00 Hep B Core IgM Ab Negative (NEGATIVE) 05/15/17 07:00 Hepatitis C Antibody Negative (NEGATIVE) 05/15/17 07:00 - Hospital Course Hospital Course: This patient is a 71 year old female with PMHx of EtOH Abuse, HTN and Depression who presents complaining that she is depressed and is suicidal. She was brought to the E.R by her . Patient states that for the past 3-4 days she has not eaten and has just been drinking alcohol. Patient was found to have an episode of hematemesis and dark tarry stools when admitted. Abdominal ultrasound was ordered which revealed hepatic steatosis. Gastroenterology was consulted, and esophagogastroduodenoscopy was performed which revealed Gastritis , Mild duodenitis, 2 cm hiatal hernia, gastric erosions, no evidence of esophageal varices. Patient was cleared from a GI standpoint but instructed to follow up for an outpatient colonoscopy. Due to patient having consistent symptoms of depression, psychiatry was consulted. Psychiatry gave the patient the option to be admitted to the psychiatry unit after being discharged from the medical floors, however patient stated she wanted to go home instead. Patient was instructed on the importance of abstaining from alcohol and the deleterious effects it has on her body ranging from her gastroenterological findings as well as her bone marrow suppression. Also discussed with patient that it may be beneficial to join alcoholics anonymous meetings for extra support. Patient insisted she would no longer drink when she returned home. Patient initially complained of dizziness this morning however upon reassessing the patient, she stated her dizziness had resolved and she felt well. Patient was in agreement with discharge plan to follow up with her primary care physician within 3-5 days. Patient was given appropriate medications and multivitamins and discharged. Case reviewed and discussed with Dr. Amor Urrutia Discharge Exam - Head Exam Head Exam: ATRAUMATIC, NORMAL INSPECTION, NORMOCEPHALIC - Eye Exam Eye Exam: EOMI, Normal appearance - ENT Exam ENT Exam: Mucous Membranes Dry, Mucous Membranes Moist - Neck Exam Neck exam: Normal Inspection - Respiratory Exam Respiratory Exam: Clear to PA & Lateral, NORMAL BREATHING PATTERN, UNREMARKABLE - Cardiovascular Exam Cardiovascular Exam: REGULAR RHYTHM, +S1, +S2 - GI/Abdominal Exam GI & Abdominal Exam: Normal Bowel Sounds, Unremarkable - Extremities Exam Extremities exam: normal inspection - Back Exam Back exam: NORMAL INSPECTION - Neurological Exam Neurological exam: Alert, CN II-XII Intact, Oriented x3 - Psychiatric Exam Psychiatric exam: Normal Affect, Normal Mood - Skin Skin Exam: Intact, Normal Color, Warm Discharge Plan - Discharge Medications Prescriptions: chlordiazePOXIDE [Chlordiazepoxide HCl] 10 mg PO TID #6 cap Famotidine [Pepcid] 40 mg PO HS 14 Days #14 tab Folic Acid 1 mg PO DAILY 14 Days #14 tab Magnesium Oxide [Mag-Ox] 400 mg PO BID 14 Days #28 tab Multimineral/Multivitamin [Therapeutic-M Tab] 1 tab PO 0800 14 Days #14 tab Thiamine [Vitamin B1 Tab] 100 mg PO DAILY 14 Days #14 tab - Follow Up Plan Condition: GOOD Disposition: HOME/ ROUTINE Instructions: Gastritis, Alcohol Use - When Is Drinking a Problem?, Alcohol Abuse and Alcoholism (DC) Additional Instructions: Discharge instructions: 1. Complete alcohol cessation is strongly recommended. 2. follow up with Dr. Frank, recreational therapy aide, outpatient within 2-3 weeks , for colonoscopy. 3. Follow up with Dr Torres, primary care doctor, within 1 week. BP goal is 150/ 90 (JNC8). We recommends that patient can be on lisinopril 20mg daily alone. In addition, patient had orthostatic hypotension. Follow up with primary care doctor for blood pressure management. 4. Please limit consumption of alcohol, coffee, acidic foods such as tomatoes and some fruits( emmie, lloyd), fruit juice (jugo de frutas), fatty foods ( comida grasosa), fried foods (comida frita), carbonates drinks (gaseosas), and spicy foods( comida picante) to help lessen symptoms of gastritis. Referrals: Mily Torres MD [Primary Care Provider] - Fransisco Frank MD [Medical Doctor] - <Pravin Chinchilla - Last Filed: 05/18/17 16:52> Provider - Provider Date of Admission: 05/13/17 20:01 Attending physician: Pravin Chinchilla MD Primary care physician: Mily Torres MD Hospital Course - Lab Results Lab Results: Micro Results 05/14/17 05:00 Urine,Clean Catch Urine Culture - Final Escherichia Coli 05/14/17 06:30 Stool C. difficile Antigen & Toxin A,B (M - Final Most Recent Lab Values WBC 3.2 10^3/ul (4.5-11.0) L 05/17/17 05:45 RBC 3.99 10^6/uL (3.5-6.1) 05/17/17 05:45 Hgb 13.1 g/dL (12.0-16.0) 05/17/17 05:45 Hct 39.3 % (36.0-48.0) 05/17/17 05:45 MCV 98.5 fl (80.0-105.0) 05/17/17 05:45 MCH 32.8 pg (25.0-35.0) 05/17/17 05:45 MCHC 33.3 g/dl (31.0-37.0) 05/17/17 05:45 RDW 13.8 % (11.5-14.5) 05/17/17 05:45 Plt Count 70 10^3/uL (120.0-450.0) L 05/17/17 05:45 MPV 11.4 fl (7.0-11.0) H 05/17/17 05:45 Gran % 57.4 % (50.0-68.0) 05/17/17 05:45 Lymph % (Auto) 28.0 % (22.0-35.0) 05/17/17 05:45 [place] % (Auto) 12.1 % (1.0-6.0) H 05/17/17 05:45 Eos % (Auto) 2.2 % (1.5-5.0) 05/17/17 05:45 Baso % (Auto) 0.3 % (0.0-3.0) 05/17/17 05:45 Gran # 1.85 (1.4-6.5) 05/17/17 05:45 Lymph # (Auto) 0.9 (1.2-3.4) L 05/17/17 05:45 [place] # (Auto) 0.4 (0.1-0.6) 05/17/17 05:45 Eos # (Auto) 0.1 (0.0-0.7) 05/17/17 05:45 Baso # (Auto) 0.01 K/mm3 (0.0-2.0) 05/17/17 05:45 PT 11.9 SECONDS (9.4-12.5) 05/14/17 07:00 INR 1.03 (0.93-1.08) 05/14/17 07:00 APTT 29.6 Seconds (25.1-36.5) 05/14/17 07:00 Sodium 137 mmol/L (132-148) 05/17/17 05:45 Potassium 3.6 mmol/L (3.6-5.0) 05/17/17 05:45 Chloride 100 mmol/L (98-107) 05/17/17 05:45 Carbon Dioxide 31 mmol/L (21-33) 05/17/17 05:45 Anion Gap 10 (10-20) 05/17/17 05:45 BUN 5 mg/dL (7-21) L 05/17/17 05:45 Creatinine 0.5 mg/dl (0.7-1.2) L 05/17/17 05:45 Est GFR ( Amer) > 60 05/17/17 05:45 Est GFR (Non-Af Amer) > 60 05/17/17 05:45 Random Glucose 103 mg/dL (70-110) 05/17/17 05:45 Hemoglobin A1c 5.6 % (4.2-6.5) 05/15/17 07:00 Calcium 10.0 mg/dL (8.4-10.5) 05/17/17 05:45 Magnesium 1.6 mg/dL (1.7-2.2) L 05/16/17 06:30 Total Bilirubin 0.9 mg/dL (0.2-1.3) 05/17/17 05:45 AST 138 U/L (14-36) H 05/17/17 05:45 ALT 62 U/L (7-56) H 05/17/17 05:45 Alkaline Phosphatase 117 U/L (38-126) 05/17/17 05:45 Lactate Dehydrogenase 551 U/L (333-699) 05/13/17 14:00 Total Creatine Kinase 35 U/L (35-230) 05/13/17 14:00 Troponin I < 0.01 ng/mL 05/13/17 14:00 Total Protein 6.7 g/dL (5.8-8.3) 05/17/17 05:45 Albumin 3.2 g/dL (3.0-4.8) 05/17/17 05:45 Globulin 3.4 gm/dL 05/17/17 05:45 Albumin/Globulin Ratio 0.9 (1.1-1.8) L 05/17/17 05:45 Lipase 99 U/L (23-300) 05/13/17 14:00 Urine Color Yellow (YELLOW) 05/14/17 05:00 Urine Appearance Sl cloudy (CLEAR) 05/14/17 05:00 Urine pH 6.0 (4.7-8.0) 05/14/17 05:00 Ur Specific Pace 1.025 (1.005-1.035) 05/14/17 05:00 Urine Protein Trace mg/dL (<30 mg/dL) H 05/14/17 05:00 Urine Glucose (UA) Negative mg/dL (NEGATIVE) 05/14/17 05:00 Urine Ketones 40 mg/dL (NEGATIVE) H 05/14/17 05:00 Urine Blood Large (NEGATIVE) H 05/14/17 05:00 Urine Nitrate Negative (NEGATIVE) 05/14/17 05:00 Urine Bilirubin Small (NEGATIVE) H 05/14/17 05:00 Urine Urobilinogen 0.2 E.U./dL (<1 E.U./dL) 05/14/17 05:00 Ur Leukocyte Esterase Negative Harriet/uL (NEGATIVE) 05/14/17 05:00 Urine RBC 20 - 25 /hpf (0-2) 05/14/17 05:00 Urine WBC 0 - 2 /hpf (0-6) 05/14/17 05:00 Ur Epithelial Cells 3 - 4 /hpf (0-5) 05/14/17 05:00 Urine Bacteria Mod (NEG) 05/14/17 05:00 Urine Other Uyeast 05/14/17 05:00 Stool Occult Blood Positive (NEGATIVE) H 05/14/17 06:30 Urine Opiates Screen Positive (NEGATIVE) H 05/14/17 05:00 Urine Methadone Screen Negative (NEGATIVE) 05/14/17 05:00 Ur Barbiturates Screen Negative (NEGATIVE) 05/14/17 05:00 Ur Phencyclidine Scrn Negative (NEGATIVE) 05/14/17 05:00 Ur Amphetamines Screen Negative (NEGATIVE) 05/14/17 05:00 U Benzodiazepines Scrn Negative (NEGATIVE) 05/14/17 05:00 U Oth Cocaine Metabols Negative (NEGATIVE) 05/14/17 05:00 U Cannabinoids Screen Negative (NEGATIVE) 05/14/17 05:00 Alcohol, Quantitative 274 mg/dL (0-10) H 05/13/17 14:00 Hepatitis A IgM Ab Negative (NEGATIVE) 05/15/17 07:00 Hep Bs Antigen Negative (NEGATIVE) 05/15/17 07:00 Hep B Core IgM Ab Negative (NEGATIVE) 05/15/17 07:00 Hepatitis C Antibody Negative (NEGATIVE) 05/15/17 07:00 Attending/Attestation - Attestation I have personally seen and examined this patient.: Yes I have fully participated in the care of the patient.: Yes I have reviewed all pertinent clinical information, including history, physical exam and plan: Yes Notes (Text): 05/18/17 16:50 attending note; Patient seen and examined with resident. Patient is a 71-year-old female admitted with depression/suicidal ideation. psychiatric evaluation appreciated. One-to-one discontinued. Patient refused inpatient psychiatric admission. Refused alcohol rehabilitation. complete alcohol cessation is strongly recommended. Hematemesis; resolved. Status post EGD. Showed gastritis and duodenitis. Currently tolerating regular diet. Abdominal pain resolved. Continue GI prophylaxis. Discharge home today. Alcohol rehabilitation information given. Upon discharge the patient will follow up with PMD of choice.
[2017-05-17 06:31] LABS: BASO # 0.01 K/mm3 (0.0-2.0); BASO % 0.3 % (0.0-3.0); EOS # 0.1 (0.0-0.7); EOS % 2.2 % (1.5-5.0); GRAN # 1.85 (1.4-6.5); GRAN % 57.4 % (50.0-68.0); HEMOGLOBIN 13.1 g/dL (12.0-16.0); LYMPH # 0.9 (1.2-3.4); MEAN CELL VOLUME 98.5 fl (80.0-105.0); MEAN CORPUSCULAR HEMOGLOBIN 32.8 pg (25.0-35.0); MEAN CORPUSCULAR HGB CONC 33.3 g/dl (31.0-37.0); MEAN PLATELET VOLUME 11.4 fl (7.0-11.0); MONO # 0.4 (0.1-0.6); MONO % 12.1 % (1.0-6.0); RBC 3.99 10^6/uL (3.5-6.1); RED CELL DISTRIBUTION WIDTH 13.8 % (11.5-14.5); WHITE BLOOD COUNT 3.2 10^3/ul (4.5-11.0)
[2017-05-17 07:21] LABS: BLOOD UREA NITROGEN 5 mg/dL (7-21); GFR AFRICAN-AMERICAN > 60; GFR NON-AFRICAN AMERICAN > 60
[2017-05-17 07:22] LABS: ALB/GLOB RATIO 0.9 (1.1-1.8); ALBUMIN 3.2 g/dL (3.0-4.8); ALT/SGPT 62 U/L (7-56); AST/SGOT 138 U/L (14-36)
[2017-05-17] MEDS: Magnesium Oxide 400 mg Tab UD PO SCH (09:16)
[2017-05-17] MEDS: Multivitamin With Minerals Tab PO SCH (09:17)
--- NOTE | 2017-05-17 14:58 | PN ---
DATE: 05/17/2017 She is being seen today for a followup consultation. PRESENTATION: The patient is a 71-year-old female, seen at bedside. She has been medically cleared for discharge at this time. She recently came into the hospital on 05/13/2017. She was depressed and intoxicated. Consult was called due to concerns regarding whether or not patient was suicidal. Patient has been seen in consult for several days. When I last spoke with her on day before yesterday, she had been wanting to come into the psychiatric unit, but her reason for wanting to enter the psychiatric unit would be for her understand how depressed she is and not her after 35 years of marriage. Patient's divorce was due to be finalized yesterday. She had needed a letter to excuse her from court, which was supplied by the medical team. She does not want to divorce; however, her has had another woman. Today, the concern is that patient is medically discharged; however, last night, she was in bed, crying and stated that she was depressed and she does not want to hurt herself, but she does not want to live anymore, she is tired of this life. So the medical payment poster was called and they are awaiting my psychiatric input today. I was able to interview the patient with the use of a psychiatric nurse who is also fluent in Nepalese. The patient was interviewed. She indicates she did not indeed make that comment, but one of the things that she is realizing is that whether or not she wants to get , her has moved on and that he is going to divorce her. Her son who lives in [place] wants to come, get her and bring her back to [place] to live with him. However, there are some difficulties with getting enter the country and getting a visa due to the current government situation, so he is not sure at what point he can come, but that is his intent. The patient at this point wants to go home and stay with her who is willing to stay with her until her son can come and pick her up before he goes to back to [place]. The patient denies being suicidal at this time. She says she is sad in reference to her thought that her marriage of 35 years has ended. She indicates that she does not plan to drink. She has a plan to go live with her son. It was pointed out that being with her at this point in time like be more of a stressor for her than a support. However, patient wants to be able to pack up her life and ship things to [place], so that when her son can come and get her, she can go with him. Still she is too nervous and anxious to fly on her own. She does understand that she is depressed. She does have a Nepalese-speaking PMD, Dr. Burt who is in [place], who evidently recognizes that she is depressed and wants to see her on a weekly basis and was going to medicate her. She is willing to take an antidepressant, but I am unable to start an antidepressant at this time as she is discharged and she is unwilling to come up to the unit. She understands that the situation may be difficult for her when she gets out and she is willing to seek emergency help, come to the emergency room should she need if she starts to feel like the situation is too much for her. She indicates that she is looking forward to living with her son and this is something that is keeping her going. She is trying to not end the marriage, but as it turns out, had been having an affair for 2 years. Prior to this, additionally, he disappeared for a month and a half recently without calling her and she had called the police and it turns out he had gone off with the girlfriend for a month and a half and not notified her. So, her understanding is that the relationship is in fact over. He is not a good person for her and that she wants to move on with her son and her family in [place]. CURRENT VITAL SIGNS: Include temperature of 98.2, pulse of 89, blood pressure of 138/95, respiratory rate of 18, and O2 sat of 96%. MENTAL STATUS EXAM: The patient is alert and oriented x3. Her eye contact is good. Her behavior is cooperative. Speech rate and volume are within normal limits. Mood is appropriate to the content of the conversation. Affect is follows the conversation as well. Her thoughts are goal directed, logical, and coherent. She denies being suicidal or homicidal at this time. She denies hallucinations, delusions, or paranoia. Her concentration and her focus appear adequate. Her memory both short and terminal block assembler are good. Her appetite is good and she reports improved sleeping at night. DIAGNOSTIC IMPRESSION: Alcohol use disorder, chronic ongoing mood disorder related to alcoholism and divorce. PLAN: The patient denies being suicidal or homicidal. She indicates she is sad but she appears in no imminent danger of hurting herself or others. She does have a future plan and she is logical and coherent in her approach to her difficulties. She does not meet the criterion for involuntary admission. She does concent to utilize the emergency service should she need and she does want to follow up with her PMD for antidepressants and a weekly check in. Patient psychiatrically is cleared for discharge. Thank you for the consult. This case has been discussed with Dr. Mathews. Summer Addison APN Pam Mathews MD [place]
--- NOTE | 2017-05-17 17:11 | CP.PCM.PN ---
<Carmel Toro - Last Filed: 05/17/17 17:11> Subjective - Date & Time of Evaluation Date of Evaluation: 05/17/17 Time of Evaluation: 10:15 - Subjective Subjective: S&E at bedside, denies pain,N/V tolerating oral intake, c/o feeling dizzy, same as yesterday. No reports of overt GI bleeding. Objective - Vital Signs/Intake and Output Vital Signs (last 24 hours): Temp Pulse Resp BP Pulse Ox 98.2 F 89 18 138/95 H 96 05/17/17 08:11 05/17/17 08:11 05/17/17 08:11 05/17/17 08:11 05/17/17 08:11 Intake and Output: 05/17/17 05/17/17 06:59 18:59 Intake Total 660 825 Balance 660 825 - Medications Medications: Current Medications Chlordiazepoxide (Librium) 25 mg PO Q8 PRN; Protocol PRN Reason: Anxiety Famotidine (Pepcid) 40 mg PO HS [facility] Last Admin: 05/16/17 22:10 Dose: 40 mg Folic Acid (Folic Acid) 1 mg PO DAILY [facility] Last Admin: 05/17/17 09:16 Dose: 1 mg Lisinopril (Zestril) 20 mg PO DAILY [facility] Last Admin: 05/17/17 09:16 Dose: 20 mg Lorazepam (Ativan) 2 mg IVP Q4H PRN; Protocol PRN Reason: Symptoms of alcohol withdrawl Last Admin: 05/16/17 00:59 Dose: 2 mg Lorazepam (Ativan) 1 mg PO QID [facility] PRN Reason: Protocol Last Admin: 05/17/17 17:04 Dose: Not Given Magnesium Oxide (Mag-Ox) 400 mg PO BID [facility] Last Admin: 05/17/17 09:16 Dose: 400 mg Multivitamins/Minerals (Therapeutic-M Tab) 1 tab PO 0800 [facility] Last Admin: 05/17/17 09:17 Dose: 1 tab Ondansetron HCl (Zofran Inj) 4 mg IVP Q6H PRN PRN Reason: Nausea/Vomiting Thiamine HCl (Vitamin B1 Tab) 100 mg PO DAILY [facility] Last Admin: 05/17/17 09:17 Dose: 100 mg Zolpidem Tartrate (Ambien) 5 mg PO HS PRN; Protocol PRN Reason: Insomnia Last Admin: 05/16/17 21:49 Dose: 5 mg - Labs Labs: 05/17/17 05:45 05/17/17 05:45 PT 11.9 SECONDS (9.4-12.5) 05/14/17 07:00 INR 1.03 (0.93-1.08) 05/14/17 07:00 APTT 29.6 Seconds (25.1-36.5) 05/14/17 07:00 - Constitutional Appears: No Acute Distress - Head Exam Head Exam: NORMOCEPHALIC - Eye Exam Eye Exam: Normal appearance. absent: Scleral icterus - ENT Exam ENT Exam: Mucous Membranes Moist, Normal Exam - Respiratory Exam Respiratory Exam: NORMAL BREATHING PATTERN. absent: Respiratory Distress - Cardiovascular Exam Cardiovascular Exam: +S1, +S2 - GI/Abdominal Exam GI & Abdominal Exam: Soft, Normal Bowel Sounds. absent: Guarding, Tenderness, Rebound - Extremities Exam Extremities Exam: absent: Calf Tenderness - Neurological Exam Neurological Exam: Alert, Awake, Oriented x3 - Skin Skin Exam: Dry, Warm Assessment and Plan - Assessment and Plan (Free Text) Assessment: Assessment: GI bleed, complain of melena, status post endoscopy found to have mild duodenitis, gastric erosions, no esophageal varices Thrombocytopenia, slowly improving Alcohol abuse History of depression History of hypertension Plan: Trend LFTs which are improving continue Pepcid Monitor H&H and for overt GI bleed, hgb steady On MVI folic acid thiamine On Librium Alcohol cessation Recommend elective outpatient colonoscopy Seen and discussed with Dr. Frank. <Fransisco Frank V - Last Filed: 05/17/17 23:37> Objective - Vital Signs/Intake and Output Vital Signs (last 24 hours): Temp Pulse Resp BP Pulse Ox 97.6 F 96 H 19 157/95 H 97 05/17/17 16:00 05/17/17 16:00 05/17/17 16:00 05/17/17 16:00 05/17/17 16:00 Intake and Output: 05/17/17 05/18/17 18:59 06:59 Intake Total 825 Balance 825 - Labs Labs: 05/17/17 05:45 05/17/17 05:45 PT 11.9 SECONDS (9.4-12.5) 05/14/17 07:00 INR 1.03 (0.93-1.08) 05/14/17 07:00 APTT 29.6 Seconds (25.1-36.5) 05/14/17 07:00 Attending/Attestation - Attestation I have personally seen and examined this patient.: Yes I have fully participated in the care of the patient.: Yes I have reviewed all pertinent clinical information, including history, physical exam and plan: Yes Notes (Text): This is an addendum to GI progress report dictated by Carmel Toro APN.The patient was seen and examined earlier. Medical records, lab studies, imagings were reviewed. Last 24 hours events reviewed. Agreed with the above treatment plan as outlined in Carmel Toro APN's notes the with the addition of the following 05/17/17 23:37
[2017-05-17 18:04] VITALS: BP 157/95; PULSE 96; RESP 19; TEMP 97.6; O2SAT 97
== END 2017-05-17 20:50 | disposition home or self-care (01) | DRG 897 ==
LOC: ED 12:59 → ERH 20:01 → 3RSO 05-14 00:35 → 3RNO 05-16 14:37
PROVIDERS: ADMIT Hospitalist; ATTEND Internal Medicine
PROC: 0DJ08ZZ Inspection of Upper Intestinal Tract, Via Natural or Artificial Opening Endoscopic (ICD-10-PCS; principal; 2017-05-15 14:00)
DX: F10.239 Alcohol dependence with withdrawal, unspecified (principal); K92.0 Hematemesis; R45.851 Suicidal ideations; K29.70 Gastritis, unspecified, without bleeding; K29.80 Duodenitis without bleeding; K44.9 Diaphragmatic hernia without obstruction or gangrene; F10.24 Alcohol dependence with alcohol-induced mood disorder; D69.6 Thrombocytopenia, unspecified; I10 Essential (primary) hypertension; I95.1 Orthostatic hypotension; H40.9 Unspecified glaucoma; F32.9 Major depressive disorder, single episode, unspecified; K76.0 Fatty (change of) liver, not elsewhere classified; R19.7 Diarrhea, unspecified; D64.9 Anemia, unspecified; Y90.8 Blood alcohol level of 240 mg/100 ml or more

== ENCOUNTER 2017-10-02 16:43 | Inpatient (IN) | payer MEDICARE, OTHER ==
[2017-10-02] MEDS ORDERED: Sodium Chloride 0.9% 1,000 ML IV STA (17:04)
[2017-10-02 17:07] VITALS: BMI 25.8
[2017-10-02 17:28] LABS: BASO # 0.05 K/mm3 (0.0-2.0); BASO % 1.1 % (0.0-3.0); GRAN # 2.35 (1.4-6.5); GRAN % 51.5 % (50.0-68.0); LYMPH # 1.9 (1.2-3.4); LYMPH % 41.1 % (22.0-35.0); MEAN CORPUSCULAR HEMOGLOBIN 31.4 pg (25.0-35.0); MEAN CORPUSCULAR HGB CONC 34.9 g/dl (31.0-37.0); MONO # 0.3 (0.1-0.6); MONO % 6.3 % (1.0-6.0); RBC 4.78 10^6/uL (3.5-6.1); RED CELL DISTRIBUTION WIDTH 13.9 % (11.5-14.5); WHITE BLOOD COUNT 4.6 10^3/ul (4.5-11.0)
--- NOTE | 2017-10-02 17:48 | ED PDOC ---
Arrival/HPI - General Historian: Patient - History of Present Illness Time/Duration: > week Quality: Burning Activities at Onset: Rest Context: Home <Kaz Ramirez - Last Filed: 10/02/17 18:42> <Patric Salinas DO - Last Filed: 10/03/17 11:19> - General Chief Complaint: Abdominal Pain Time Seen by Provider: 10/02/17 16:51 - History of Present Illness Narrative History of Present Illness (Text): 10/02/17 17:39 This is a 72 year old female with PMH of alcohol abuse, gastritis, colitis, ascites, cirrhosis, and depression presenting to the ED for 2 week history of worsening abdominal pain. Patient states she drank alcohol today and yesterday but cannot remember how much. Friend is present who is translating for [place] Islander speaking patient, and states patient is confused and altered from baseline. Patient was admitted to hospital for 4 days in 04/2017. At that time, abdominal ultrasound showed hepatic steatosis and endoscopy showed gastritis, mild duodenitis, 2 cm hiatal hernia and gastric erosions. Today, she admits to abdominal pain, confusion, decreased appetite, and non bloody diarrhea. Denies chest pain, SOB, vomiting, fevers, and dark stools. (Kaz Ramirez) Past Medical History - Provider Review Nursing Documentation Reviewed: Yes - Infectious Disease Hx of Infectious Diseases: None - Reproductive Menopause: Yes - Cardiac Hx Hypertension: Yes - Pulmonary Hx Respiratory Disorders: No - Neurological Other/Comment: facial palsy left facial droop 2014 - HEENT Hx Glaucoma: Yes - Hematological/Oncological Hx Blood Transfusions: No - Integumentary Other/Comment: bruises both knees from fall 1 wk ago getting out of a car - Musculoskeletal/Rheumatological Hx Falls: No - Gastrointestinal Hx Gastrointestinal Disorders: (colitis gastritis) - Genitourinary/Gynecological Hx Sexually Transmitted Diseases: No - Psychiatric Hx Depression: Yes Hx Emotional Abuse: No Hx Physical Abuse: No Hx Substance Use: No - Surgical History Hx Cholecystectomy: Yes - Anesthesia Hx Anesthesia Reactions: No Hx Malignant Hyperthermia: No - Suicidal Assessment Feels Threatened In Home Enviroment: No <Kaz Ramirez - Last Filed: 10/02/17 18:42> Family/Social History - Physician Review Nursing Documentation Reviewed: Yes Family/Social History: Unknown Family HX Smoking Status: Never Smoked Hx Alcohol Use: Yes (States she drinks 3 bottles of rum daily) Amount per day: 2 Hx Substance Use: No Substance used: ALCOHOL Hx Substance Use Treatment: No <Kaz Ramirez - Last Filed: 10/02/17 18:42> Allergies/Home Meds <Kaz Ramirez - Last Filed: 10/02/17 18:42> <Patric Salinas DO - Last Filed: 10/03/17 11:19> Allergies/Adverse Reactions: Allergies No Known Allergies Allergy (Verified 10/02/17 16:51) Home Medications: Home Meds Medication Instructions Recorded Confirmed Lisinopril/Hydrochlorothiazide 12.5 - 20 mg PO DAILY 12/01/16 10/02/17 [Lisinopril-Hctz 20-12.5 mg Tab] ALPRAZolam [Xanax] 0.25 mg PO BID 05/13/17 10/02/17 Spironolactone [Aldactone] 25 mg PO DAILY 05/13/17 10/02/17 Review of Systems - Physician Review All systems were reviewed & negative as marked: Yes - Review of Systems Constitutional: Normal. absent: Fevers Eyes: Normal ENT: Normal Respiratory: Normal. absent: SOB Cardiovascular: Normal. absent: Chest Pain Gastrointestinal: Abdominal Pain, Diarrhea. absent: Nausea, Vomiting, Hematochezia, Hematemesis Genitourinary Female: Normal Musculoskeletal: Normal Skin: Normal Neurological: Normal. absent: Headache, Dizziness Endocrine: Normal Hemo/Lymphatic: Normal <Kaz Ramirez - Last Filed: 10/02/17 18:42> Physical Exam Vital Signs Reviewed: Yes Temperature: Afebrile Blood Pressure: Normal Pulse: Regular Respiratory Rate: Normal Appearance: Positive for: Well-Appearing, Non-Toxic, Comfortable Pain Distress: None Mental Status: Positive for: Confused - Systems Exam Head: Present: Atraumatic, Normocephalic Pupils: Present: PERRL Extroacular Muscles: Present: EOMI Conjunctiva: Present: Normal Neck: Present: Normal Range of Motion Respiratory/Chest: Present: Clear to Auscultation, Good Air Exchange. No: Respiratory Distress, Accessory Muscle Use Cardiovascular: Present: Regular Rate and Rhythm, Normal S1, S2. No: Murmurs Abdomen: Present: Tenderness, Distention, Normal Bowel Sounds. No: Peritoneal Signs, Guarding Back: Present: Normal Inspection Upper Extremity: Present: Normal Inspection. No: Cyanosis, Edema Lower Extremity: Present: Normal Inspection. No: Edema Neurological: Present: Speech Normal, Motor Func Grossly Intact, Normal Sensory Function Skin: Present: Warm, Dry, Normal Color. No: Rashes Psychiatric: Present: Anxious. No: Alert <Kza Ramirez - Last Filed: 10/02/17 18:42> Vital Signs Temp Pulse Resp BP Pulse Ox 10/02/17 21:55 115 H 18 145/95 H 95 10/02/17 16:48 98.5 F 89 20 130/61 97 Medical Decision Making <Kaz Ramirez - Last Filed: 10/02/17 18:42> <Patric Salinas DO - Last Filed: 10/03/17 11:19> ED Course and Treatment: 10/02/17 17:55 This is a 72 year old female with PMH of alcohol abuse, gastritis, colitis, ascites, cirrhosis, and depression presenting to the ED for 2 week history of worsening abdominal pain. Differential: Cirrhosis vs. gastritis vs. alcohol intoxication Plan: -CBC, CMP -Lipase, NH4, Mg -U/A -Alcohol -Zofran, Famotidine -CT abd Progress: (Kaz Ramirez) - Lab Interpretations Lab Results: 10/02/17 17:10 10/02/17 17:10 Lab Results 10/02/17 20:15: Ammonia 18 10/02/17 20:11: Urine Color Yellow, Urine Appearance Clear, Urine pH 6.5, Ur Specific [place] <= 1.005, Urine Protein 30 H, Urine Glucose (UA) Negative, Urine Ketones Negative, Urine Blood Trace-intact H, Urine Nitrate Negative, Urine Bilirubin Negative, Urine Urobilinogen 0.2, Ur Leukocyte Esterase Negative , Urine RBC 0 - 2, Urine WBC Negative, Ur Epithelial Cells 1 - 3, Urine Bacteria Neg, Hyaline Casts 0 - 2 10/02/17 17:10: Alcohol, Quantitative 249 H 10/02/17 17:10: Sodium 141, Potassium 4.0, Chloride 98, Carbon Dioxide 27, Anion Gap 21 H, BUN 13, Creatinine 0.7, Est GFR ( Amer) > 60, Est GFR ( Non-Af Amer) > 60, Random Glucose 122 H, Calcium 9.0, Magnesium 2.1, Total Bilirubin 0.5, AST 68 H D, ALT 33, Alkaline Phosphatase 129 H, Total Protein 7.7 , Albumin 4.1, Globulin 3.6, Albumin/Globulin Ratio 1.1, Lipase 99 10/02/17 17:10: WBC 4.6 D, RBC 4.78, Hgb 15.0, Hct 43.0, MCV 90.0 D, MCH 31.4 , MCHC 34.9, RDW 13.9, Plt Count 225, MPV 9.0, Gran % 51.5, Lymph % (Auto) 41.1 H, [place] % (Auto) 6.3 H, Eos % (Auto) 0.0 L, Baso % (Auto) 1.1, Gran # 2.35, Lymph # (Auto) 1.9, [place] # (Auto) 0.3, Eos # (Auto) 0.0, Baso # (Auto) 0.05 - RAD Interpretation Radiology Orders: 10/02/17 17:28 ABD & PELVIS IV CONTRAST ONLY [CT] Stat - Medication Orders Current Medication Orders: Folic Acid (Folic Acid) 1 mg PO DAILY [facility] Last Admin: 10/03/17 10:29 Dose: 1 mg Dextrose/Sodium Chloride (Dextrose 5%/0.45% Ns 1000 Ml) 1,000 mls @ 75 mls/hr IV .[id number] [facility] Last Admin: 10/03/17 09:25 Dose: 75 mls/hr eMAR Start Stop Document 10/03/17 09:25 (Rec: 10/03/17 09:25 [place] [id number]) Intravenous Solution Start Date 10/03/17 Start Time 09:25 Lorazepam (Ativan) 1 mg IVP Q6H PRN; Protocol PRN Reason: Anxiety Last Admin: 10/03/17 10:54 Dose: 1 mg IVP Administration Document 10/03/17 10:54 (Rec: 10/03/17 10:54 [place] [id number]) Charges for Administration # of IVP Administrations 1 Behavioural Document 10/03/17 10:54 (Rec: 10/03/17 10:54 [place] [id number]) Maintenance Maintenance Dose No Nonmedicinal Nonmedicinal Interventions Redirect Activity Behavior Behavior for Medication: Anxiety Behavior Comment etoh withdrawal Magnesium Oxide (Mag-Ox) 400 mg PO BID [facility] Last Admin: 10/03/17 10:29 Dose: 400 mg Metoprolol Tartrate (Lopressor) 25 mg PO BRKDIN MICHEAL Pantoprazole Sodium (Protonix Ec Tab) 40 mg PO ACB [facility] Last Admin: 10/03/17 08:55 Dose: 40 mg Thiamine HCl (Vitamin B1 Tab) 100 mg PO DAILY [facility] Last Admin: 10/03/17 10:29 Dose: 100 mg Vitamin B Complex/Vit C/Folic Acid (Nephro-Tasneem) 1 tab PO 0800 [facility] Discontinued Medications Al Hydrox/Mg Hydrox/Simethicone (Maalox Plus 30 Ml) 30 ml PO STAT STA Stop: 10/02/17 19:39 Last Admin: 10/02/17 20:15 Dose: 30 ml Al Hydrox/Mg Hydrox/Simethicone (Maalox Plus 30 Ml) 30 ml PO STAT STA Stop: 10/03/17 02:28 Last Admin: 10/03/17 03:02 Dose: 30 ml Al Hydrox/Mg Hydrox/Simethicone (Maalox Plus 30 Ml) 30 ml PO ONCE ONE Stop: 10/03/17 11:05 Clonidine HCl (Catapres) 0.1 mg PO ONCE STA Stop: 10/03/17 08:30 Last Admin: 10/03/17 08:50 Dose: 0.1 mg [facility] Pulse and Blood Pressure Document 10/03/17 08:50 MF (Rec: 10/03/17 08:50 [id number]) Pulse Pulse Rate (60-90) 105 Blood Pressure Blood Pressure (100/60-150/90) 147/90 Famotidine (Pepcid) 20 mg IVP STAT STA Stop: 10/02/17 17:05 Last Admin: 10/02/17 17:22 Dose: 20 mg IVP Administration Document 10/02/17 17:22 OCS (Rec: 10/02/17 17:22 OCS [id number]) Charges for Administration # of IVP Administrations 1 Famotidine (Pepcid) 20 mg IVP STAT STA Stop: 10/03/17 11:06 Sodium Chloride (Sodium Chloride 0.9%) 1,000 mls @ 100 mls/hr IV .Q10H STA Stop: 10/03/17 03:03 Last Admin: 10/02/17 17:22 Dose: 100 mls/hr eMAR Start Stop Document 10/02/17 17:22 OCS (Rec: 10/02/17 17:22 OCS [id number]) Intravenous Solution Start Date 10/02/17 Start Time 17:22 Multivitamins/Vitamin C 10 ml/Thiamine HCl 100 mg/ Folic Acid 1 mg/ Dextrose 1, 011.2 mls @ 1,000 mls/hr IV .Q1H1M ONE Stop: 10/02/17 23:39 Last Admin: 10/02/17 23:31 Dose: 1,000 mls/hr eMAR Start Stop Document 10/02/17 23:31 AD (Rec: 10/02/17 23:31 AD [id number]) Intravenous Solution Start Date 10/02/17 Start Time 23:31 Sodium Chloride (Sodium Chloride 0.9%) 1,000 mls @ 70 mls/hr IV .[id number] [facility] Last Admin: 10/03/17 08:52 Dose: 70 mls/hr eMAR Start Stop Document 10/03/17 08:52 MF (Rec: 10/03/17 08:53 MF [id number]) Intravenous Solution Start Date 10/03/17 Start Time 08:53 Lidocaine HCl (Lidocaine 2% Viscous) 15 ml MM STAT STA Stop: 10/03/17 11:05 Lorazepam (Ativan) 2 mg IVP ONCE ONE PRN Reason: Protocol Stop: 10/02/17 22:02 Last Admin: 10/02/17 22:10 Dose: 2 mg IVP Administration Document 10/02/17 22:10 AD (Rec: 10/02/17 22:10 AD [id number]) Charges for Administration # of IVP Administrations 1 Morphine Sulfate (Morphine) 2 mg IVP STAT STA Stop: 10/02/17 17:54 Last Admin: 10/02/17 17:58 Dose: 2 mg MAR Pain Assessment Document 10/02/17 17:58 [email or web address] (Rec: 10/02/17 17:59 CASTS1 [id number]) Pain Reassessment Is this a pain reassessment? No Sleep Is patient sleeping during reassessment? No Presence of Pain Presence of Pain Yes Pain Scale Used Pain Scale Used Numeric Location Pain Location Body Site Abdomen Description Description Constant Intensity of Pain at present 9 Pain Behavior Moaning Facial Grimacing Aggravating Factors Changing Position Alleviating Factors Medication IVP Administration Document 10/02/17 17:58 [email or web address] (Rec: 10/02/17 17:59 [email or web address] [id number]) Charges for Administration # of IVP Administrations 1 Morphine Sulfate (Morphine) 2 mg IVP STAT STA Stop: 10/03/17 03:42 Last Admin: 10/03/17 04:08 Dose: 2 mg MAR Pain Assessment Document 10/03/17 04:08 LGA (Rec: 10/03/17 04:11 [place] [id number]) Pain Reassessment Is this a pain reassessment? Yes Sleep Is patient sleeping during reassessment? No Presence of Pain Presence of Pain Yes Pain Scale Used Pain Scale Used Numeric Location Upper or Lower Lower Pain Location Body Site Abdomen Description Description Constant Pain Behavior Moaning Crying Screaming Aggravating Factors Changing Position Alleviating Factors/Management Medication Techniques IVP Administration Document 10/03/17 04:08 LGA (Rec: 10/03/17 04:11 LGA [id number]) Charges for Administration # of IVP Administrations 1 Ondansetron HCl (Zofran Inj) 4 mg IVP STAT STA Stop: 10/02/17 17:05 Last Admin: 10/02/17 17:22 Dose: 4 mg IVP Administration Document 10/02/17 17:22 OCS (Rec: 10/02/17 17:22 OCS [id number]) Charges for Administration # of IVP Administrations 1 - PA / SUPERVISORY TRAINING SPECIALIST / Resident Statement BRAD has reviewed & agrees with the documentation as recorded. BRAD has examined the patient and agrees with the treatment plan. <Kaz Ramirez - Last Filed: 10/02/17 18:42> Disposition/Present on Arrival - Present on Arrival History of DVT/PE: No History of Uncontrolled Diabetes: No Urinary Catheter: No History of Decub. Ulcer: No History Surgical Site Infection Following: None <Kaz Ramirez - Last Filed: 10/02/17 18:42> - Present on Arrival Any Indicators Present on Arrival: No - Disposition Have Diagnosis and Disposition been Completed?: Yes Disposition Time: 20:00 <Patric Salinas DO - Last Filed: 10/03/17 11:19> - Disposition Diagnosis: Alcohol withdrawal Disposition: HOSPITALIZED Condition: GUARDED
[2017-10-02 17:53] LABS: ALB/GLOB RATIO 1.1 (1.1-1.8); ALBUMIN 4.1 g/dL (3.0-4.8); ALT/SGPT 33 U/L (7-56); AST/SGOT 68 U/L (14-36); BLOOD UREA NITROGEN 13 mg/dL (7-21); GFR AFRICAN-AMERICAN > 60; GFR NON-AFRICAN AMERICAN > 60; LIPASE 99 U/L (23-300)
[2017-10-02] MEDS ORDERED: Morphine 2 mg/ml ISec IVP STA (17:53)
[2017-10-02] MEDS ORDERED: Iohexol 350 MG/100 ML VIAL ONE (18:05)
--- NOTE | 2017-10-02 18:48 | CT ---
Date of service: 10/02/2017 PROCEDURE: CT Abdomen and Pelvis with contrast HISTORY: diffuse tenderness - h/o alcohol abuse COMPARISON: CT scan of the abdomen and pelvis dated 12/01/2016. TECHNIQUE: Contrast dose: 100 mL Omnipaque 350 Radiation dose: Total exam DLP = 727.8 mGy-cm. This CT exam was performed using one or more of the following dose reduction techniques: Automated exposure control, adjustment of the mA and/or kV according to patient size, and/or use of iterative reconstruction technique. FINDINGS: LOWER THORAX: Unremarkable. LIVER: Diffuse hepatic steatosis. No gross lesion or ductal dilatation. GALLBLADDER AND BILE DUCTS: Prior cholecystectomy with surgical clips in place and expected prominence of the CBD. PANCREAS: Unremarkable. No gross lesion or ductal dilatation. SPLEEN: Unremarkable. ADRENALS: Unremarkable. No mass. KIDNEYS AND URETERS: Unremarkable. No hydronephrosis. No solid mass. VASCULATURE: Unremarkable. No aortic aneurysm. BOWEL: Colonic diverticulosis. No obstruction. No gross mural thickening. APPENDIX: Normal appendix. PERITONEUM: Tiny fat containing umbilical hernia. No free fluid. No free air. LYMPH NODES: Unremarkable. No enlarged lymph nodes. BLADDER: Unremarkable. REPRODUCTIVE: Calcified uterine fibroids. BONES: No acute fracture. Degenerative changes. OTHER FINDINGS: None. IMPRESSION: No acute abdominal pelvic pathology. Stable findings as above.
[2017-10-02] MEDS ORDERED: Alum-Mag Hydrox-Simethicone Susp (30 mL) PO STA (19:38)
[2017-10-02 20:21] LABS: PH,URINE 6.5 (4.7-8.0); URINE BILIRUBIN NEGATIVE (NEGATIVE); URINE BLOOD TRACE-INTACT (NEGATIVE); URINE GLUCOSE (UA) NEGATIVE (NEGATIVE); URINE LEUKOCYTE ESTERASE NEGATIVE Leu/uL (NEGATIVE); URINE PROTEIN 30 mg/dL (<30 mg/dL); URINE UROBILINOGEN 0.2 E.U./dL (<1 E.U./dL)
[2017-10-02 20:25] LABS: URINE APPEARANCE CLEAR (CLEAR); URINE COLOR YELLOW (YELLOW)
[2017-10-02 20:37] LABS: URINE BACTERIA NEG (NEG); URINE HYALINE CAST 0 - 2 /hpf; URINE RBC 0 - 2 /hpf (0-2); URINE WBC NEGATIVE /hpf (0-6)
[2017-10-02] MEDS ORDERED: Multivitamin (MVI) 10 ML, Thiamine 100 MG, Folic Acid 1 MG in Dextrose 5% In Water 1,00... IV ONE (22:39)
--- NOTE | 2017-10-02 23:45 | ED PDOC ---
Physical Exam - Physical Exam Narrative Physical Exam (Text): Signed out to me at change of shift pending CT abdomen. CT abdomen negative for any acute findings. patient tremulous, hypertensive, with tongue fasciulcations , tachycardic. Dr. Briceno accepts patient to medical service for alcohol withdrawal. Vital Signs Temp Pulse Resp BP Pulse Ox 10/02/17 21:55 115 H 18 145/95 H 95 10/02/17 16:48 98.5 F 89 20 130/61 97 Medical Decision Making - Lab Interpretations Lab Results: 10/02/17 17:10 10/02/17 17:10 Lab Results 10/02/17 20:15: Ammonia 18 10/02/17 20:11: Urine Color Yellow, Urine Appearance Clear, Urine pH 6.5, Ur Specific [place] <= 1.005, Urine Protein 30 H, Urine Glucose (UA) Negative, Urine Ketones Negative, Urine Blood Trace-intact H, Urine Nitrate Negative, Urine Bilirubin Negative, Urine Urobilinogen 0.2, Ur Leukocyte Esterase Negative , Urine RBC 0 - 2, Urine WBC Negative, Ur Epithelial Cells 1 - 3, Urine Bacteria Neg, Hyaline Casts 0 - 2 10/02/17 17:10: Alcohol, Quantitative 249 H 10/02/17 17:10: Sodium 141, Potassium 4.0, Chloride 98, Carbon Dioxide 27, Anion Gap 21 H, BUN 13, Creatinine 0.7, Est GFR ( Amer) > 60, Est GFR ( Non-Af Amer) > 60, Random Glucose 122 H, Calcium 9.0, Magnesium 2.1, Total Bilirubin 0.5, AST 68 H D, ALT 33, Alkaline Phosphatase 129 H, Total Protein 7.7 , Albumin 4.1, Globulin 3.6, Albumin/Globulin Ratio 1.1, Lipase 99 10/02/17 17:10: WBC 4.6 D, RBC 4.78, Hgb 15.0, Hct 43.0, MCV 90.0 D, MCH 31.4 , MCHC 34.9, RDW 13.9, Plt Count 225, MPV 9.0, Gran % 51.5, Lymph % (Auto) 41.1 H, [place] % (Auto) 6.3 H, Eos % (Auto) 0.0 L, Baso % (Auto) 1.1, Gran # 2.35, Lymph # (Auto) 1.9, [place] # (Auto) 0.3, Eos # (Auto) 0.0, Baso # (Auto) 0.05 - RAD Interpretation Radiology Orders: 10/02/17 17:28 ABD & PELVIS IV CONTRAST ONLY [CT] Stat - Medication Orders Current Medication Orders: Sodium Chloride (Sodium Chloride 0.9%) 1,000 mls @ 100 mls/hr IV .Q10H STA Stop: 10/03/17 03:03 Last Admin: 10/02/17 17:22 Dose: 100 mls/hr eMAR Start Stop Document 10/02/17 17:22 OCS (Rec: 10/02/17 17:22 OCS [id number]) Intravenous Solution Start Date 10/02/17 Start Time 17:22 Discontinued Medications Al Hydrox/Mg Hydrox/Simethicone (Maalox Plus 30 Ml) 30 ml PO STAT STA Stop: 10/02/17 19:39 Last Admin: 10/02/17 20:15 Dose: 30 ml Famotidine (Pepcid) 20 mg IVP STAT STA Stop: 10/02/17 17:05 Last Admin: 10/02/17 17:22 Dose: 20 mg IVP Administration Document 10/02/17 17:22 OCS (Rec: 10/02/17 17:22 OCS [id number]) Charges for Administration # of IVP Administrations 1 Multivitamins/Vitamin C 10 ml/Thiamine HCl 100 mg/ Folic Acid 1 mg/ Dextrose 1, 011.2 mls @ 1,000 mls/hr IV .Q1H1M ONE Stop: 10/02/17 23:39 Last Admin: 10/02/17 23:31 Dose: 1,000 mls/hr eMAR Start Stop Document 10/02/17 23:31 AD (Rec: 10/02/17 23:31 AD [id number]) Intravenous Solution Start Date 10/02/17 Start Time 23:31 Lorazepam (Ativan) 2 mg IVP ONCE ONE PRN Reason: Protocol Stop: 10/02/17 22:02 Last Admin: 10/02/17 22:10 Dose: 2 mg IVP Administration Document 10/02/17 22:10 AD (Rec: 10/02/17 22:10 AD [id number]) Charges for Administration # of IVP Administrations 1 Morphine Sulfate (Morphine) 2 mg IVP STAT STA Stop: 10/02/17 17:54 Last Admin: 10/02/17 17:58 Dose: 2 mg MAR Pain Assessment Document 10/02/17 17:58 [email or web address] (Rec: 10/02/17 17:59 [email or web address] [id number]) Pain Reassessment Is this a pain reassessment? No Sleep Is patient sleeping during reassessment? No Presence of Pain Presence of Pain Yes Pain Scale Used Pain Scale Used Numeric Location Pain Location Body Site Abdomen Description Description Constant Intensity of Pain at present 9 Pain Behavior Moaning Facial Grimacing Aggravating Factors Changing Position Alleviating Factors Medication IVP Administration Document 10/02/17 17:58 [email or web address] (Rec: 10/02/17 17:59 [email or web address] [id number]) Charges for Administration # of IVP Administrations 1 Ondansetron HCl (Zofran Inj) 4 mg IVP STAT STA Stop: 10/02/17 17:05 Last Admin: 10/02/17 17:22 Dose: 4 mg IVP Administration Document 10/02/17 17:22 OCS (Rec: 10/02/17 17:22 OCS [id number]) Charges for Administration # of IVP Administrations 1 Disposition/Present on Arrival - Present on Arrival Any Indicators Present on Arrival: No History of DVT/PE: No History of Uncontrolled Diabetes: No Urinary Catheter: No History of Decub. Ulcer: No History Surgical Site Infection Following: None - Disposition Have Diagnosis and Disposition been Completed?: Yes Diagnosis: Alcohol withdrawal Disposition: HOSPITALIZED Disposition Time: 23:45 Patient Plan: Admission, Telemetry Condition: GUARDED
[2017-10-03] MEDS ORDERED: Alum-Mag Hydrox-Simethicone Susp (30 mL) PO STA (02:27)
[2017-10-03] MEDS ORDERED: Morphine 2 mg/ml ISec IVP STA (03:41)
[2017-10-03] MEDS ORDERED: Sodium Chloride 0.9% 1,000 ML IV SCH (08:30)
[2017-10-03] MEDS: Pantoprazole 40 mg EC Tab PO SCH (08:55)
[2017-10-03] MEDS: Dextrose 5%/0.45% NS 1,000 ML IV SCH (09:25)
--- NOTE | 2017-10-03 09:58 | CP.PCM.CON ---
<Carlos Manuel Spain - Last Filed: 10/03/17 16:21> History of Present Illness - History of Present Illness History of Present Illness: GI Consult Note for Dr. Zac Spain, PGY-3 This is a 72 yo F with PMH of HTN, Gastritis, EtOH abuse, hepatic steatosis, hx of GI bleed, and Depression who [place] [facility] [place] complaint of progressively worsening abdominal pain x2 weeks. Patient was also reported to have AMS on arrival (brought in by friend), however this appears to have resolved prior to this interview and exam, pt was AAOx3 this AM. Patient is Indonesian-speaking only, interpretation obtained via [employer] faculty member. Patient reports abdominal pain began while moving from sitting to standing position at home 2 weeks prior, has only worsened since. Patient unable or unwilling to quantify her drinking to this examiner; as per ED note, up to 3 bottles of rum daily, but patient reports drinking current quantity for last 3- 4 weeks, and states has barely been eating any food during the same time frame. Reports was doing well off alcohol after last admission for alcohol (Apr 2017) , but reports drinking at current amount because her left her. Initially reports vomiting (non-bloody, non-bilious), but unable to quantify frequency and then later states she wasn't vomiting. Denies diarrhea, PO intolerance, focal weakness, vision changes, confusion. Unaware of reported confusion overnight by friend, is AAOx3 (self, location, year) at time of exam. All other ROS in 12-system review negative. PMH: as above PSH: cholecytectomy Fam Hx: pt denies Soc Hx: denies tobacco/illicits/IVDA, admits to EtOH but refuses to quantify amount daily, reported up to 3 bottles rum daily by ED PMD: Dr. Mily Torres, unclear if she actually follows up (unable to answer when she last saw her PMD) Review of Systems - Review of Systems All systems: reviewed and no additional remarkable complaints except (as per HPI ) Past Patient History - Infectious Disease Hx of Infectious Diseases: None - Past Social History Smoking Status: Former Smoker - CARDIAC Hx Cardiac Disorders: Yes Hx Hypertension: Yes - PULMONARY Hx Respiratory Disorders: No - NEUROLOGICAL Hx Neurological Disorder: Yes Other/Comment: facial palsy,left facial droop 2013 - HEENT Hx HEENT Problems: Yes Hx Glaucoma: Yes - RENAL Hx Chronic Kidney Disease: No - ENDOCRINE/METABOLIC Hx Endocrine Disorders: No - HEMATOLOGICAL/ONCOLOGICAL Hx Blood Disorders: Yes Hx Cirrhosis: Yes - INTEGUMENTARY Hx Dermatological Problems: No - MUSCULOSKELETAL/RHEUMATOLOGICAL Hx Musculoskeletal Disorders: Yes Hx Back Pain: Yes Hx Falls: Yes Hx Osteoporosis: Yes Hx Unsteady Gait: Yes - GASTROINTESTINAL Hx Gastrointestinal Disorders: Yes Hx Gall Bladder Disease: Yes (cholecystectomy) Hx Liver Failure: Yes (cirrhosis, liver biopsy 2012) Other/Comment: colitis, gastritis,abdominal pain - GENITOURINARY/GYNECOLOGICAL Hx Genitourinary Disorders: Yes Hx Urinary Tract Infection: Yes - PSYCHIATRIC Hx Psychophysiologic Disorder: Yes Hx Anxiety: Yes Hx Depression: Yes Hx Panic Symptoms: Yes Hx Substance Use: No Other/Comment: alcohol use, as per patient she drinks 3 bottles of rum daily - SURGICAL HISTORY Hx Surgeries: Yes Hx Cholecystectomy: Yes - ANESTHESIA Hx Anesthesia Reactions: No Hx Malignant Hyperthermia: No Meds Allergies/Adverse Reactions: Allergies Allergy/AdvReac Type Severity Reaction Status Date / Time No Known Allergies Allergy Verified 10/02/17 16:51 - Medications Medications: Current Medications Folic Acid (Folic Acid) 1 mg PO DAILY [facility] Dextrose/Sodium Chloride (Dextrose 5%/0.45% Ns 1000 Ml) 1,000 mls @ 75 mls/hr IV .[id number] [facility] Last Admin: 10/03/17 09:25 Dose: 75 mls/hr Lorazepam (Ativan) 1 mg IVP Q6H PRN; Protocol PRN Reason: Anxiety Magnesium Oxide (Mag-Ox) 400 mg PO BID [facility] Metoprolol Tartrate (Lopressor) 25 mg PO BRKDIN [facility] Pantoprazole Sodium (Protonix Ec Tab) 40 mg PO ACB [facility] Last Admin: 10/03/17 08:55 Dose: 40 mg Thiamine HCl (Vitamin B1 Tab) 100 mg PO DAILY [facility] Vitamin B Complex/Vit C/Folic Acid (Nephro-Tasneem) 1 tab PO 0800 [facility] Physical Exam - Constitutional Appears: Non-toxic, No Acute Distress, Chronically Ill - Head Exam Head Exam: ATRAUMATIC, NORMAL INSPECTION, NORMOCEPHALIC - Eye Exam Eye Exam: EOMI, Normal appearance. absent: Conjunctival injection, Scleral icterus Pupil Exam: absent: Fixed, Irregular - ENT Exam ENT Exam: Mucous Membranes Moist - Neck Exam Neck exam: Positive for: Full Rom, Normal Inspection. Negative for: Thyromegaly - Respiratory Exam Respiratory Exam: Clear to Auscultation Bilateral, NORMAL BREATHING PATTERN. absent: Accessory Muscle Use, Chest Wall Tenderness, Decreased Breath Sounds, Rales, Rhonchi, Wheezes, Respiratory Distress - Cardiovascular Exam Cardiovascular Exam: Tachycardia, Irregular Rhythm, +S1, +S2. absent: Bradycardia, REGULAR RHYTHM, JVD, RRR, +S4 - GI/Abdominal Exam GI & Abdominal Exam: Normal Bowel Sounds, Soft, Tenderness (diffuse mild tenderness throughout abdomen, greatest tenderness at epigastric region). absent: Diminished Bowel Sounds, Distended, Firm, Hyperactive Bowel Sounds, Hypoactive Bowel Sounds, Rigid - Extremities Exam Extremities exam: Positive for: normal capillary refill, normal inspection, pedal pulses present. Negative for: calf tenderness, pedal edema, tenderness - Back Exam Back exam: absent: CVA tenderness (L), CVA tenderness (R) - Neurological Exam Additional comments: sleeping but easily aroused, awake and alert once awakened, oriented to self/ location/year, following all commands appropriately, moving all extremities on command - Psychiatric Exam Psychiatric exam: Normal Affect, Normal Mood - Skin Skin Exam: Dry, Intact, Normal Color, Warm Results - Vital Signs Recent Vital Signs: Last Vital Signs Temp 97.8 F 10/03/17 06:00 Pulse 105 H 10/03/17 08:50 Resp 20 10/03/17 06:00 BP 147/90 10/03/17 08:50 Pulse Ox 96 10/03/17 06:00 - Labs Result Diagrams: 10/02/17 17:10 10/02/17 17:10 Assessment & Plan - Assessment and Plan (Free Text) Assessment: This is a 72 yo F with PMH of HTN, Gastritis, EtOH abuse, hepatic steatosis, hx of GI bleed, and Depression who [place] [facility] [place] complaint of progressively worsening abdominal pain x2 weeks and AMS which has since resolved. Found to have an alcohol level of 248. GI consulted for abdominal pain. Plan: Hx GI bleed, no varices on last EGD Alcohol abuse History of depression History of hypertension Diffuse Abdominal pain -CT abd/pelvis notable for longstanding calcified uterine fibroid and small fat- containing umbilical hernia; no acute process appreciated -Mild AST elevation, AST approx 2x ALT, consistent with alcohol abuse -Alcohol lvl 248 on admission, likely pending withdrawal -Hx of GI bleed, but also hx of thrombocytopenia 2/2 alcohol abuse/marrow suppression; continue protonix at this time, will add Carafate, and monitor platelet counts for pending thrombocytopenia -Monitor H&H for any signs of new GI bleeding -Start MVI, folic acid, and thiamine -encourage Alcohol cessation -Patient may benefit from Psych consult Case reviewed and discussed with attending, Dr. Frank <Fransisco Frank V - Last Filed: 10/03/17 23:04> Meds - Medications Medications: Current Medications Al Hydrox/Mg Hydrox/Simethicone (Maalox Plus 30 Ml) 30 ml PO TID PRN PRN Reason: Indigestion / Heartburn Last Admin: 10/03/17 19:00 Dose: 30 ml Folic Acid (Folic Acid) 1 mg PO DAILY [facility] Last Admin: 10/03/17 10:29 Dose: 1 mg Dextrose/Sodium Chloride (Dextrose 5%/0.45% Ns 1000 Ml) 1,000 mls @ 75 mls/hr IV .[id number] [facility] Last Admin: 10/03/17 09:25 Dose: 75 mls/hr Lorazepam (Ativan) 1 mg IVP Q6H PRN; Protocol PRN Reason: Anxiety Last Admin: 10/03/17 22:03 Dose: 1 mg Magnesium Oxide (Mag-Ox) 400 mg PO BID [facility] Last Admin: 10/03/17 17:23 Dose: 400 mg Metoprolol Tartrate (Lopressor) 25 mg PO BRKDIN [facility] Last Admin: 10/03/17 17:23 Dose: 25 mg Pantoprazole Sodium (Protonix Ec Tab) 40 mg PO ACB [facility] Last Admin: 10/03/17 08:55 Dose: 40 mg Sucralfate (Carafate Oral Susp) 1 gm PO 0630,1130,1630,2200 [facility] Last Admin: 10/03/17 22:04 Dose: 1 gm Thiamine HCl (Vitamin B1 Tab) 100 mg PO DAILY [facility] Last Admin: 10/03/17 10:29 Dose: 100 mg Vitamin B Complex/Vit C/Folic Acid (Nephro-Tasneem) 1 tab PO 0800 [facility] Results - Vital Signs Recent Vital Signs: Last Vital Signs Temp 98.2 F 10/03/17 18:00 Pulse 91 H 10/03/17 18:00 Resp 21 10/03/17 18:00 BP 148/95 H 10/03/17 18:00 Pulse Ox 96 10/03/17 06:00 - Labs Result Diagrams: 10/02/17 17:10 10/02/17 17:10 Labs: Laboratory Results - last 24 hr 10/03/17 10:50 PT 12.0 INR 1.04 APTT 28.8 Attending/Attestation - Attestation I have personally seen and examined this patient.: Yes I have fully participated in the care of the patient.: Yes I have reviewed all pertinent clinical information: Yes Notes (Text): This an addendum to GI the consultation/follow up note dictated by medical doctor This patient was seen and evaluated earlier. Agreed with findings and recommendations and they were personally reviewed and discussed with me . 10/03/17 23:02
[2017-10-03] MEDS: Magnesium Oxide 400 mg Tab UD PO SCH ×2 (10:29→17:23)
[2017-10-03] MEDS ORDERED: Alum-Mag Hydrox-Simethicone Susp (30 mL) PO ONE (11:04)
[2017-10-03 11:14] LABS: INR 1.04 (0.93-1.08); PARTIAL THROMBOPLASTIN TIME 28.8 Seconds (25.1-36.5)
[2017-10-03] MEDS: Alum-Mag Hydrox-Simethicone Susp (30 mL) PO PRN ×2 (15:35→19:00)
[2017-10-03] MEDS: Sucralfate 1 gm/10 ml Oral Susp UD PO SCH ×2 (17:23→22:04)
--- NOTE | 2017-10-03 19:03 | US ---
Date of service: 10/03/2017 HISTORY: abd tender COMPARISON: None. TECHNIQUE: Sonographic evaluation of the right upper quadrant of the abdomen. FINDINGS: LIVER: Measures 14.2 cm in length. Increased echogenicity of the liver parenchyma. No mass. No intrahepatic bile duct dilatation. GALLBLADDER: Prior cholecystectomy. COMMON BILE DUCT: Measures 7 mm. No stones. No dilatation. PANCREAS: Not well-visualized. RIGHT KIDNEY: Measures 11.1 x 5.9 x 5.8 cm in length. Normal echogenicity. No calculus, mass, or hydronephrosis. AORTA: No aneurysmal dilatation. IVC: Unremarkable. OTHER FINDINGS: None . IMPRESSION: Hepatic steatosis. Limited evaluation of the pancreas.
--- NOTE | 2017-10-03 20:16 | CARD ---
APPROVED REPORT Date of service: 10/03/2017 EKG Measurement Heart [id number] <Conclusion> Sinus tachycardia Otherwise normal ECG
[2017-10-04] MEDS: Dextrose 5%/0.45% NS 1,000 ML IV SCH (01:42)
[2017-10-04] MEDS: Sucralfate 1 gm/10 ml Oral Susp UD PO SCH ×4 (05:31→21:51)
--- NOTE | 2017-10-04 06:46 | CP.PCM.PN ---
<Carlos Manuel Spain - Last Filed: 10/04/17 10:58> Subjective - Date & Time of Evaluation Date of Evaluation: 10/04/17 Time of Evaluation: 07:42 - Subjective Subjective: GI Progress Note for Dr. Zac Spain, PGY-3 Patient seen and examined at bedside. No acute events reported overnight. 1x dose of IV 1mg Ativan used overnight. Patient complains of headache and mild nausea today, both improved compared to yesterday. No emesis, still has mild stomach pain. Still oriented x3 (self, location, year). Denies chest pain or shortness of breath. Objective - Vital Signs/Intake and Output Vital Signs (last 24 hours): Temp Pulse Resp BP Pulse Ox 98.2 F 74 20 126/82 98 10/04/17 06:00 10/04/17 06:00 10/04/17 06:00 10/04/17 06:00 10/04/17 06:00 Intake and Output: 10/03/17 10/04/17 18:59 06:59 Intake Total 1260 Output Total 900 Balance 360 - Medications Medications: Current Medications Al Hydrox/Mg Hydrox/Simethicone (Maalox Plus 30 Ml) 30 ml PO TID PRN PRN Reason: Indigestion / Heartburn Last Admin: 10/03/17 19:00 Dose: 30 ml Folic Acid (Folic Acid) 1 mg PO DAILY [facility] Last Admin: 10/03/17 10:29 Dose: 1 mg Dextrose/Sodium Chloride (Dextrose 5%/0.45% Ns 1000 Ml) 1,000 mls @ 75 mls/hr IV .[id number] [facility] Last Admin: 10/04/17 01:42 Dose: 75 mls/hr Lorazepam (Ativan) 1 mg IVP Q6H PRN; Protocol PRN Reason: Anxiety Last Admin: 10/03/17 22:03 Dose: 1 mg Magnesium Oxide (Mag-Ox) 400 mg PO BID [facility] Last Admin: 10/03/17 17:23 Dose: 400 mg Metoprolol Tartrate (Lopressor) 25 mg PO BRKDIN [facility] Last Admin: 10/03/17 17:23 Dose: 25 mg Pantoprazole Sodium (Protonix Ec Tab) 40 mg PO ACB [facility] Last Admin: 10/03/17 08:55 Dose: 40 mg Sucralfate (Carafate Oral Susp) 1 gm PO 0630,1130,1630,2200 [facility] Last Admin: 10/04/17 05:31 Dose: 1 gm Thiamine HCl (Vitamin B1 Tab) 100 mg PO DAILY [facility] Last Admin: 10/03/17 10:29 Dose: 100 mg Vitamin B Complex/Vit C/Folic Acid (Nephro-Tasneem) 1 tab PO 0800 [facility] - Labs Labs: PT 12.0 SECONDS (9.4-12.5) 10/03/17 10:50 INR 1.04 (0.93-1.08) 10/03/17 10:50 APTT 28.8 Seconds (25.1-36.5) 10/03/17 10:50 - Additional Findings Additional findings: - Constitutional Appears: Non-toxic, No Acute Distress, Chronically Ill - Head Exam Head Exam: ATRAUMATIC, NORMAL INSPECTION, NORMOCEPHALIC - Eye Exam Eye Exam: EOMI, Normal appearance. absent: Conjunctival injection, Scleral icterus Pupil Exam: absent: Fixed, Irregular - ENT Exam ENT Exam: Mucous Membranes Moist - Neck Exam Neck exam: Positive for: Full Rom, Normal Inspection. Negative for: Thyromegaly - Respiratory Exam Respiratory Exam: Clear to Auscultation Bilateral, NORMAL BREATHING PATTERN. absent: Accessory Muscle Use, Chest Wall Tenderness, Decreased Breath Sounds, Rales, Rhonchi, Wheezes, Respiratory Distress - Cardiovascular Exam Cardiovascular Exam: RRR, +S1, +S2. absent: Tachycardia, Bradycardia, JVD, +S4 - GI/Abdominal Exam GI & Abdominal Exam: Normal Bowel Sounds, Soft, Tenderness (diffuse mild tenderness throughout abdomen, greatest tenderness at epigastric region; improved compared to prior exam). absent: Diminished Bowel Sounds, Distended, Firm, Hyperactive Bowel Sounds, Hypoactive Bowel Sounds, Rigid - Extremities Exam Extremities exam: Positive for: normal capillary refill, normal inspection, pedal pulses present. Negative for: calf tenderness, pedal edema, tenderness - Neurological Exam Additional comments: sleeping but easily aroused, awake and alert once awakened, oriented to self/ location/year, following all commands appropriately, moving all extremities on command - Psychiatric Exam Psychiatric exam: Normal Affect, Normal Mood - Skin Skin Exam: Dry, Intact, Normal Color, Warm Assessment and Plan - Assessment and Plan (Free Text) Assessment: This is a 72 yo F with PMH of HTN, Gastritis, EtOH abuse, hepatic steatosis, hx of GI bleed, and Depression who presents to [facility] [place] with complaint of progressively worsening abdominal pain x2 weeks and AMS which has since resolved. Found to have an alcohol level of 248. GI consulted for abdominal pain. 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 Frank <Fransisco Frank V - Last Filed: 10/04/17 21:55> Objective - Vital Signs/Intake and Output Vital Signs (last 24 hours): Temp Pulse Resp BP Pulse Ox 98.2 F 70 19 118/76 98 10/04/17 17:42 10/04/17 18:16 10/04/17 17:42 10/04/17 18:16 10/04/17 06:00 Intake and Output: 10/04/17 10/05/17 18:59 06:59 Intake Total 1450 Output Total 1200 Balance 250 - Medications Medications: Current Medications Al Hydrox/Mg Hydrox/Simethicone (Maalox Plus 30 Ml) 30 ml PO TID PRN PRN Reason: Indigestion / Heartburn Last Admin: 10/04/17 13:44 Dose: 30 ml Chlordiazepoxide (Librium) 25 mg PO Q8 [facility] PRN Reason: Protocol Last Admin: 10/04/17 18:15 Dose: 25 mg Enoxaparin Sodium (Lovenox) 40 mg SC DAILY [facility] PRN Reason: Protocol Last Admin: 10/04/17 12:19 Dose: 40 mg Folic Acid (Folic Acid) 1 mg PO DAILY [facility] Last Admin: 10/04/17 09:30 Dose: 1 mg Dextrose/Sodium Chloride (Dextrose 5%/0.45% Ns 1000 Ml) 1,000 mls @ 75 mls/hr IV .[id number] [facility] Last Admin: 10/04/17 01:42 Dose: 75 mls/hr Lorazepam (Ativan) 1 mg IVP Q6H PRN; Protocol PRN Reason: Anxiety Last Admin: 10/04/17 13:54 Dose: 1 mg Magnesium Oxide (Mag-Ox) 400 mg PO BID [facility] Last Admin: 10/04/17 18:17 Dose: 400 mg Metoprolol Tartrate (Lopressor) 25 mg PO BRKDIN [facility] Last Admin: 10/04/17 18:16 Dose: 25 mg Oxycodone HCl (Oxycodone Immediate Release Tab) 5 mg PO Q6H PRN PRN Reason: Pain, moderate (4-7) Pantoprazole Sodium (Protonix Ec Tab) 40 mg PO ACB [facility] Last Admin: 10/04/17 08:00 Dose: 40 mg Sucralfate (Carafate Oral Susp) 1 gm PO 0630,1130,1630,2200 [facility] Last Admin: 10/04/17 18:16 Dose: 1 gm Thiamine HCl (Vitamin B1 Tab) 100 mg PO DAILY [facility] Last Admin: 10/04/17 09:30 Dose: 100 mg Vitamin B Complex/Vit C/Folic Acid (Nephro-Tasneem) 1 tab PO 0800 [facility] Last Admin: 10/04/17 07:59 Dose: 1 tab - Labs Labs: 10/04/17 08:20 10/04/17 08:20 PT 12.0 SECONDS (9.4-12.5) 10/03/17 10:50 INR 1.04 (0.93-1.08) 10/03/17 10:50 APTT 28.8 Seconds (25.1-36.5) 10/03/17 10:50 Attending/Attestation - Attestation I have personally seen and examined this patient.: Yes I have fully participated in the care of the patient.: Yes I have reviewed all pertinent clinical information, including history, physical exam and plan: Yes Notes (Text): This is an addendum to GI progress report dictated by the Resident.The patient was seen and examined earlier. Medical records, lab studies, imagings were reviewed. Last 24 hours events reviewed. Agreed with the above treatment plan as outlined in Resident 's notes the with the addition of the following on examination abdomen soft mild tenderness in the epigastric area follow-up LFTs Previous endoscopy reports we reviewed Continue PPI and Carafate monitor or impending DT 10/04/17 21:54
[2017-10-04] MEDS: Multivitamin Vitamin B Complex (Nephro-Vite) Tab PO SCH (07:59)
[2017-10-04] MEDS: Pantoprazole 40 mg EC Tab PO SCH (08:00)
[2017-10-04] MEDS: Alum-Mag Hydrox-Simethicone Susp (30 mL) PO PRN ×2 (08:02→13:44)
[2017-10-04 08:39] LABS: BASO # 0.01 K/mm3 (0.0-2.0); BASO % 0.3 % (0.0-3.0); EOS # 0.1 (0.0-0.7); EOS % 1.9 % (1.5-5.0); GRAN # 1.8 (1.4-6.5); HEMOGLOBIN 13.4 g/dL (12.0-16.0); LYMPH # 0.9 (1.2-3.4); LYMPH % 28.9 % (22.0-35.0); MEAN CELL VOLUME 90.7 fl (80.0-105.0); MEAN CORPUSCULAR HEMOGLOBIN 31.2 pg (25.0-35.0); MEAN CORPUSCULAR HGB CONC 34.4 g/dl (31.0-37.0); MEAN PLATELET VOLUME 9.4 fl (7.0-11.0); MONO # 0.3 (0.1-0.6); MONO % 10.9 % (1.0-6.0); RBC 4.3 10^6/uL (3.5-6.1); RED CELL DISTRIBUTION WIDTH 13.4 % (11.5-14.5); WHITE BLOOD COUNT 3.1 10^3/ul (4.5-11.0)
[2017-10-04 08:51] LABS: ALB/GLOB RATIO 1.1 (1.1-1.8); ALBUMIN 3.7 g/dL (3.0-4.8); ALT/SGPT 23 U/L (7-56); AST/SGOT 42 U/L (14-36); BLOOD UREA NITROGEN 7 mg/dL (7-21); CALCIUM 9.1 mg/dL (8.4-10.5); GFR AFRICAN-AMERICAN > 60; GFR NON-AFRICAN AMERICAN > 60
[2017-10-04] MEDS: Magnesium Oxide 400 mg Tab UD PO SCH ×2 (09:30→18:17)
[2017-10-04] MEDS ORDERED: Potassium Chloride 20 mEq ER Tab PO ONE (09:57)
[2017-10-04] MEDS: Enoxaparin 40 mg Syringe SC SCH (12:19)
[2017-10-04] MEDS ORDERED: Morphine 2 mg/ml ISec IVP STA (21:38)
[2017-10-04] MEDS ORDERED: oxyCODONE 5 mg Immediate Release Tab PO PRN (21:41)
--- NOTE | 2017-10-04 22:06 | HP ---
A 72-year-old female came in with alcohol intoxication and possible withdrawal. HISTORY OF PRESENT ILLNESS: This is a 72-year-old female. She feels depressed. She has been drinking for the last month. Her left her after 30 years of being together, seen another woman. She has no children from him. She does feel depressed and start drinking everyday. She usually does not drink on a regular basis except for the last event. She does feel depressed. She does take Xanax as outpatient and also she has been on chlordiazepoxide as outpatient. She does have hypertension also. PAST MEDICAL HISTORY: As I mentioned. Currently, she is taking alcohol. She does have hypertension, alcohol abuse, take multivitamins. Depression. HOME MEDICATIONS: Magnesium oxide 400 b.i.d., lisinopril and hydrochlorothiazide 20 per 12.5 mg once a day, folic acid once a day, Pepcid 40 once a day, Xanax 0.25 mg b.i.d., chlordiazepoxide 10 mg p.o. t.i.d, vitamin B1, Aldactone 25 p.o. daily, and multivitamins. ALLERGIES: NO KNOWN ALLERGY. SOCIAL HISTORY: She has former smoking. She quit smoking. Alcohol use, she does drink three bottles of rum daily; however, the patient has mentioned this is for a month. There was unclear history, probably more substance use, she denied except alcohol, no other drugs. REVIEW OF SYSTEMS: She does feel depressed. She denied any constipation or diarrhea, any urinary symptoms, any bleeding disorder, any headache, or any other symptoms except being depressed. PHYSICAL EXAMINATION: On admission; GENERAL: The patient is lying in bed supine, comfortable. She does feel depressed, not seen yet by Psychiatry. VITAL SIGNS: Temperature 98.2, heart rate 86, blood pressure 150/97, respirations 20, and sat 99%. HEAD AND NECK: Normal. No JVD. No thyromegaly. CHEST: Clear bilaterally. CARDIAC: First sound and second sound normal. ABDOMEN: Soft, obese, and nontender. EXTREMITIES: No edema. NEUROLOGIC: Normal. LABORATORY STUDY: Shows white count 4.6, hemoglobin 15, hematocrit 43, and platelets 225. Chemistry: Sodium 141, potassium 4, chloride 98, bicarb 27. BUN 15, creatinine 0.7. Blood sugar 122. Calcium 9. Total bilirubin 0.5, AST 68, ALT 33, alkaline phosphatase 129. PT, PTT were normal. Toxicology shows alcohol level 249. Her urinalysis was negative. IMPRESSION AND PLAN: This is a 72-year-old female, seems depressed, has been drinking for the last month more than usual, and came in with alcohol withdrawal. She is tremulous. She is a little bit anxious. We will admit the patient for observation. We will give her benzodiazepines, Ativan. We will give her multivitamins, thiamine, and we are going to add beta-amee 25 b.i.d. for tachycardia and we will resume her medicines. We will continue current therapy and get a psychiatric consult to evaluate the patient. Continue her current medication. We will give her D5 half-normal saline, give her Ativan, Carafate, metoprolol, magnesium oxide, multivitamins, Protonix, and vitamin B1. We are going to add also Lovenox and we are waiting for psychiatric evaluation. Yevgeniy Briceno MD
[2017-10-05] MEDS: Dextrose 5%/0.45% NS 1,000 ML IV SCH ×2 (02:10→14:18)
--- NOTE | 2017-10-05 03:18 | CON ---
DATE: 10/04/2017 HISTORY OF PRESENT ILLNESS: In short, patient is 72-year-old female. Patient was admitted on the medical site for evaluation of abdominal pain. Patient has long and debilitating history of alcohol use disorder and has multiple complications due to that problem. Patient is very familiar to this check writer from previous consultation services here in [place]. Patient was seen and examined today. Patient presented to be alert. Patient remembered this check writer. Patient said that she is constantly drinking vodka on a daily basis. She does not know how much she would drink. Patient has history of alcohol withdrawals in the past. Has prolonged hospitalization due to complications from alcohol addiction. Patient lost her job. Patient's also left her. Patient has no support in the community. Patient reported that she feels depressed, but adamantly denied thoughts of harming herself or others. Patient denied hearing voices or denied seeing things. Patient denied paranoid ideation. Patient does not present to be psychotic. Patient has upper extremity tremor, but vital signs are stable. Temperature 97, pulse is 78, blood pressure 149/87, respiration 19, oxygen saturation is 98. MEDICATIONS: Reviewed. , dextrose, Lovenox, folic acid, Ativan 1 mg IV push every 6 hours p.r.n. for anxiety, magnesium oxide 400 mg twice a day, Lopressor, Protonix, sucralfate, vitamin B complex. LABORATORY DATA: Reviewed. Alcohol level at the time of admission was 249. Hematology reviewed. Hemoglobin 13.4, hematocrit 39. Coagulation reviewed. Chemistry reviewed. AST is mildly elevated at 42 and AST is 23. Urinalysis, blood in trace. MENTAL STATUS EXAMINATION: Patient is alert, oriented in self, time, and place. Patient is Vincentian speaking, but was able to express herself relatively well in Croatian. Patient reported that she feels depressed, but denied any thoughts of killing herself. Patient's thought process seems to be concrete. Thought content, patient denied visual, auditory, or tactile hallucinations. Denied paranoid ideation. Patient denied thoughts of harming herself or others. Denied intent or plan. Insight and judgment seems to be limited. Impulses are well controlled. IMPRESSION: Alcohol use disorder, rule out mood disorder due to chronic alcohol consumption, possible alcohol withdrawal symptoms. PLAN: Monitor vital signs. Most likely, patient will be required higher doses of benzodiazepines because patient has history of alcohol withdrawals in the past. This check writer would implement Librium 25 mg three times a day scheduled. CIWA protocol in place. Multivitamins, thiamine, and folic acid recommended. Naltrexone was discussed with the patient for alcohol addiction. Patient does not want to have any psychiatric services, does not want to see psychiatrist in the community. Social service evaluation is recommended. Discussed options for intensive outpatient program or inpatient rehab recommended. We will follow up to advise accordingly. Should you have any questions, give me a call back. Thank you very much for letting me participate in the care of your patient. Pam Mathews MD
[2017-10-05] MEDS: Sucralfate 1 gm/10 ml Oral Susp UD PO SCH ×4 (06:04→22:55)
[2017-10-05] MEDS: Multivitamin Vitamin B Complex (Nephro-Vite) Tab PO SCH (08:25)
[2017-10-05] MEDS: Pantoprazole 40 mg EC Tab PO SCH (08:25)
--- NOTE | 2017-10-05 09:23 | CP.PCM.PN ---
<Carmel Toro - Last Filed: 10/05/17 09:25> Subjective - Date & Time of Evaluation Date of Evaluation: 10/05/17 Time of Evaluation: 08:30 - Subjective Subjective: S&E at bedside, chart reviewed, No acute overnight events. Patient abdominal discomfort present but reports improvement. No N/V , eating as tolerated. Have BM, no bleeding or diarrhea. Denies SOB or chest pain. No tremors observed. Objective - Vital Signs/Intake and Output Vital Signs (last 24 hours): Temp Pulse Resp BP Pulse Ox 98.2 F 83 20 129/85 100 10/05/17 06:00 10/05/17 08:25 10/05/17 06:00 10/05/17 08:25 10/05/17 06:00 Intake and Output: 10/05/17 10/05/17 06:59 18:59 Intake Total 3280 Output Total 1200 Balance 2080 - Medications Medications: Current Medications Al Hydrox/Mg Hydrox/Simethicone (Maalox Plus 30 Ml) 30 ml PO TID PRN PRN Reason: Indigestion / Heartburn Last Admin: 10/04/17 13:44 Dose: 30 ml Chlordiazepoxide (Librium) 25 mg PO Q8 [facility] PRN Reason: Protocol Last Admin: 10/05/17 06:04 Dose: 25 mg Enoxaparin Sodium (Lovenox) 40 mg SC DAILY [facility] PRN Reason: Protocol Last Admin: 10/04/17 12:19 Dose: 40 mg Folic Acid (Folic Acid) 1 mg PO DAILY [facility] Last Admin: 10/04/17 09:30 Dose: 1 mg Dextrose/Sodium Chloride (Dextrose 5%/0.45% Ns 1000 Ml) 1,000 mls @ 75 mls/hr IV .[id number] [facility] Last Admin: 10/05/17 02:10 Dose: 75 mls/hr Lorazepam (Ativan) 1 mg IVP Q6H PRN; Protocol PRN Reason: Anxiety Last Admin: 10/04/17 13:54 Dose: 1 mg Magnesium Oxide (Mag-Ox) 400 mg PO BID [facility] Last Admin: 10/04/17 18:17 Dose: 400 mg Metoprolol Tartrate (Lopressor) 25 mg PO BRKDIN [facility] Last Admin: 10/05/17 08:25 Dose: 25 mg Oxycodone HCl (Oxycodone Immediate Release Tab) 5 mg PO Q6H PRN PRN Reason: Pain, moderate (4-7) Last Admin: 10/04/17 21:51 Dose: 5 mg Pantoprazole Sodium (Protonix Ec Tab) 40 mg PO ACB [facility] Last Admin: 10/05/17 08:25 Dose: 40 mg Sucralfate (Carafate Oral Susp) 1 gm PO 0630,1130,1630,2200 [facility] Last Admin: 10/05/17 06:04 Dose: 1 gm Thiamine HCl (Vitamin B1 Tab) 100 mg PO DAILY [facility] Last Admin: 10/04/17 09:30 Dose: 100 mg Vitamin B Complex/Vit C/Folic Acid (Nephro-Tasneem) 1 tab PO 0800 [facility] Last Admin: 10/05/17 08:25 Dose: 1 tab - Labs Labs: 10/04/17 08:20 10/04/17 08:20 PT 12.0 SECONDS (9.4-12.5) 10/03/17 10:50 INR 1.04 (0.93-1.08) 10/03/17 10:50 APTT 28.8 Seconds (25.1-36.5) 10/03/17 10:50 - Constitutional Appears: No Acute Distress - Head Exam Head Exam: NORMOCEPHALIC - Eye Exam Eye Exam: Normal appearance. absent: Scleral icterus - ENT Exam ENT Exam: Mucous Membranes Moist - Respiratory Exam Respiratory Exam: Clear to Ausculation Bilateral, NORMAL BREATHING PATTERN. absent: Respiratory Distress - Cardiovascular Exam Cardiovascular Exam: +S1, +S2 - GI/Abdominal Exam GI & Abdominal Exam: Soft, Tenderness, Normal Bowel Sounds. absent: Guarding, Organomegaly, Rebound Additional comments: epigastric, diffuse upper, no rebound or guarding - Extremities Exam Extremities Exam: absent: Calf Tenderness, Pedal Edema - Neurological Exam Neurological Exam: Alert, Awake, Oriented x3 - Skin Skin Exam: Dry, Warm Assessment and Plan - Assessment and Plan (Free Text) Assessment: ASSESSMENT: Chronic ETOH, alcohol level 248 on admission Abdominal Pain, diffuse. epigastric, ct scan show chronic calcified uterine fibroid, small umbilical hernia, no acute findings H/O BID, egd negative for varices H/O Thrombocytopenia, likely secondary from alcohol use, currently stable H/O Depression H/O HTN PLan: diet as tolerated continue PPI and carafate continue MVI,folic and thiamine monitor for withdrawal on Librium monitor cbc, and for GI bleeding, lft abdominal us reveal fatty liver, cbd 7mm fu electrolytes alcohol cessation, patient verbalizes that she will to stop drinking seen by psychiatric service, patient refuse psych FU , psych recommend inpatient or intendsive outpt rehab. Appreciate recommendations Seen and discussed with Dr. Frank. <Fransisco Frank V - Last Filed: 10/06/17 00:21> Objective - Vital Signs/Intake and Output Vital Signs (last 24 hours): Temp Pulse Resp BP Pulse Ox 98.2 F 79 20 140/97 H 99 10/06/17 00:01 10/06/17 00:01 10/06/17 00:01 10/06/17 00:01 10/06/17 00:01 Intake and Output: 10/05/17 10/06/17 18:59 06:59 Intake Total 1365 Output Total 1125 Balance 240 - Medications Medications: Current Medications Al Hydrox/Mg Hydrox/Simethicone (Maalox Plus 30 Ml) 30 ml PO TID PRN PRN Reason: Indigestion / Heartburn Last Admin: 10/04/17 13:44 Dose: 30 ml Chlordiazepoxide (Librium) 25 mg PO Q8 [facility] PRN Reason: Protocol Last Admin: 10/05/17 22:55 Dose: 25 mg Enoxaparin Sodium (Lovenox) 40 mg SC DAILY [facility] PRN Reason: Protocol Last Admin: 10/05/17 09:55 Dose: 40 mg Folic Acid (Folic Acid) 1 mg PO DAILY [facility] Last Admin: 10/05/17 09:55 Dose: 1 mg Dextrose/Sodium Chloride (Dextrose 5%/0.45% Ns 1000 Ml) 1,000 mls @ 75 mls/hr IV .[id number] [facility] Last Admin: 10/05/17 14:18 Dose: 75 mls/hr Lorazepam (Ativan) 1 mg IVP Q6H PRN; Protocol PRN Reason: Anxiety Last Admin: 10/04/17 13:54 Dose: 1 mg Magnesium Oxide (Mag-Ox) 400 mg PO BID [facility] Last Admin: 10/05/17 17:25 Dose: 400 mg Metoprolol Tartrate (Lopressor) 25 mg PO BRKDIN [facility] Last Admin: 10/05/17 17:25 Dose: 25 mg Oxycodone HCl (Oxycodone Immediate Release Tab) 5 mg PO Q6H PRN PRN Reason: Pain, moderate (4-7) Last Admin: 10/04/17 21:51 Dose: 5 mg Pantoprazole Sodium (Protonix Ec Tab) 40 mg PO ACB [facility] Last Admin: 10/05/17 08:25 Dose: 40 mg Sucralfate (Carafate Oral Susp) 1 gm PO 0630,1130,1630,2200 [facility] Last Admin: 10/05/17 22:55 Dose: 1 gm Thiamine HCl (Vitamin B1 Tab) 100 mg PO DAILY [facility] Last Admin: 10/05/17 09:55 Dose: 100 mg Vitamin B Complex/Vit C/Folic Acid (Nephro-Tasneem) 1 tab PO 0800 [facility] Last Admin: 10/05/17 08:25 Dose: 1 tab - Labs Labs: 10/04/17 08:20 10/05/17 08:45 PT 12.0 SECONDS (9.4-12.5) 10/03/17 10:50 INR 1.04 (0.93-1.08) 10/03/17 10:50 APTT 28.8 Seconds (25.1-36.5) 10/03/17 10:50 Attending/Attestation - Attestation I have personally seen and examined this patient.: Yes I have fully participated in the care of the patient.: Yes I have reviewed all pertinent clinical information, including history, physical exam and plan: Yes Notes (Text): This is an addendum to GI progress report dictated by Carmel Toro APN.The patient was seen and examined earlier. Medical records, lab studies, imagings were reviewed. Last 24 hours events reviewed. Agreed with the above treatment plan as outlined in Carmel Toro APN's notes the with the addition of the following Monitor for impending DT continue PPI and carafate previous EGD report was reviewed 10/06/17 00:17
[2017-10-05] MEDS ORDERED: Potassium Chloride 20 mEq ER Tab PO ONE (09:51)
[2017-10-05 09:54] LABS: ALB/GLOB RATIO 1.1 (1.1-1.8); ALBUMIN 3.5 g/dL (3.0-4.8); ALT/SGPT 32 U/L (7-56); AST/SGOT 39 U/L (14-36); BLOOD UREA NITROGEN 7 mg/dL (7-21); CALCIUM 9.3 mg/dL (8.4-10.5); GFR AFRICAN-AMERICAN > 60; GFR NON-AFRICAN AMERICAN > 60
[2017-10-05] MEDS: Enoxaparin 40 mg Syringe SC SCH (09:55)
[2017-10-05] MEDS: Magnesium Oxide 400 mg Tab UD PO SCH ×2 (09:55→17:25)
--- NOTE | 2017-10-05 12:08 | PN ---
DATE: 10/04/2017 SUBJECTIVE: The patient seems comfortable. She seems depressed. She is still crying that her left her when seeing another woman, but she does not physically complain of any abdominal pain, any nausea or vomiting. She still gets agitated, but otherwise much better. PHYSICAL EXAMINATION: VITAL SIGNS: Temperature 98.2, heart rate is 82, blood pressure 139/96, respirations 18. HEAD AND NECK: Normal. No JVD. No thyromegaly. CHEST: Clear bilaterally. CARDIAC: First sound and second sound normal. ABDOMEN: Soft, nontender. EXTREMITIES: No edema. NEUROLOGICAL: Normal. LABORATORY DATA: White count 3.1, hemoglobin 13.4, hematocrit 39, platelets 134. Chemistry shows sodium 134, potassium 3.4, chloride 95, bicarbonate 31, BUN 7, creatinine 0.5, blood sugar 125 and liver function test is normal. The patient has an AST elevated at 42, which is coming down. ALT and alkaline phosphatase is normal. IMPRESSION AND PLAN: 1. Chronic alcohol abuse. The patient advised to stop drinking. She may need some help with the alcohol detox and may be we will get her in some mental therapy if she continue to relapse. 2. Underlying depression. The patient was seen by psychiatrist, Dr. Orozco. We evaluated her and she recommended higher doses of benzodiazepine because she does have a history of alcohol withdrawal according to her so Librium 25 mg with meals was recommended. We will continue the rest of the medications and naltrexone was discussed with the patient on discharge for recurrent alcohol problems. The patient refused any psychiatric evaluations. She is planning to go back to [place] country [place] a [place] months and she may be feel better with that. 3. Elevated liver enzymes, probably alcohol related. We will monitor her liver. Gallbladder ultrasound is still pending, but she did have a CT of the abdomen and she also had liver ultrasound and gallbladder, which showed increased echogenicity, no mass, no ductal dilatation and gallbladder has been removed according to the report. 4. Hypertension. Continue current medications. 5. Acid reflux symptoms. Continue pantoprazole. Continue Pepcid, Carafate. 6. Alcohol withdrawal syndrome. Continue Ativan and Librium 25 every 8 hours. Continue multivitamins, folic acid and follow up clinically. Continue magnesium. We will follow up clinically. 7. The patient does complain of joint pain, back pain. She is in a small dose of oxycodone 5 mg every 6 hours p.r.n. Continue current therapy. Continue gastrointestinal and deep venous thrombosis prophylaxis. Yevgeniy Briceno MD
[2017-10-06] MEDS: Dextrose 5%/0.45% NS 1,000 ML IV SCH ×3 (03:10→20:15)
[2017-10-06] MEDS: Sucralfate 1 gm/10 ml Oral Susp UD PO SCH ×4 (05:49→21:00)
[2017-10-06] MEDS: Multivitamin Vitamin B Complex (Nephro-Vite) Tab PO SCH (08:33)
[2017-10-06] MEDS: Pantoprazole 40 mg EC Tab PO SCH (08:33)
[2017-10-06] MEDS: Magnesium Oxide 400 mg Tab UD PO SCH ×2 (09:33→17:22)
[2017-10-06] MEDS: Enoxaparin 40 mg Syringe SC SCH (09:33)
[2017-10-06 11:52] VITALS: RESP 20
[2017-10-06] MEDS: POLYETHYLENE GLYCOL 3350 17 GM/Dose PACKET PO SCH (13:59)
--- NOTE | 2017-10-06 14:01 | CP.PCM.PN ---
<Smitha Bates - Last Filed: 10/06/17 14:05> Subjective - Date & Time of Evaluation Date of Evaluation: 10/06/17 Time of Evaluation: 13:57 - Subjective Subjective: Gastroenterology Fellow/PGY6 Progress Note for Dr. Frank Patient notes resolved epigastric pain subjectively with mild discomfort on exam. Tolerating regular diet. Denies bowel movement for the last three days. A 12-point review of systems negative except for as above. Objective - Vital Signs/Intake and Output Vital Signs (last 24 hours): Temp Pulse Resp BP Pulse Ox 98.2 F 79 20 140/97 H 95 10/06/17 11:51 10/06/17 11:51 10/06/17 11:51 10/06/17 11:51 10/06/17 06:00 Intake and Output: 10/06/17 10/06/17 06:59 18:59 Intake Total 2580 Output Total 1125 Balance 1455 - Medications Medications: Current Medications Al Hydrox/Mg Hydrox/Simethicone (Maalox Plus 30 Ml) 30 ml PO TID PRN PRN Reason: Indigestion / Heartburn Last Admin: 10/04/17 13:44 Dose: 30 ml Chlordiazepoxide (Librium) 25 mg PO Q8 [facility] PRN Reason: Protocol Last Admin: 10/06/17 05:49 Dose: 25 mg Enoxaparin Sodium (Lovenox) 40 mg SC DAILY [facility] PRN Reason: Protocol Last Admin: 10/06/17 09:33 Dose: 40 mg Folic Acid (Folic Acid) 1 mg PO DAILY [facility] Last Admin: 10/06/17 09:33 Dose: 1 mg Dextrose/Sodium Chloride (Dextrose 5%/0.45% Ns 1000 Ml) 1,000 mls @ 75 mls/hr IV .[id number] [facility] Last Admin: 10/06/17 03:10 Dose: 75 mls/hr Lorazepam (Ativan) 1 mg IVP Q6H PRN; Protocol PRN Reason: Anxiety Last Admin: 10/04/17 13:54 Dose: 1 mg Magnesium Oxide (Mag-Ox) 400 mg PO BID [facility] Last Admin: 10/06/17 09:33 Dose: 400 mg Metoprolol Tartrate (Lopressor) 25 mg PO BRKDIN [facility] Last Admin: 10/06/17 08:33 Dose: 25 mg Oxycodone HCl (Oxycodone Immediate Release Tab) 5 mg PO Q6H PRN PRN Reason: Pain, moderate (4-7) Last Admin: 10/04/17 21:51 Dose: 5 mg Pantoprazole Sodium (Protonix Ec Tab) 40 mg PO ACB [facility] Last Admin: 10/06/17 08:33 Dose: 40 mg Polyethylene Glycol (Miralax) 17 gm PO DAILY [facility] Sucralfate (Carafate Oral Susp) 1 gm PO 0630,1130,1630,2200 [facility] Last Admin: 10/06/17 11:53 Dose: 1 gm Thiamine HCl (Vitamin B1 Tab) 100 mg PO DAILY [facility] Last Admin: 10/06/17 09:33 Dose: 100 mg Vitamin B Complex/Vit C/Folic Acid (Nephro-Tasneem) 1 tab PO 0800 [facility] Last Admin: 10/06/17 08:33 Dose: 1 tab - Labs Labs: 10/04/17 08:20 10/05/17 08:45 PT 12.0 SECONDS (9.4-12.5) 10/03/17 10:50 INR 1.04 (0.93-1.08) 10/03/17 10:50 APTT 28.8 Seconds (25.1-36.5) 10/03/17 10:50 - Constitutional Appears: Non-toxic, No Acute Distress - Head Exam Head Exam: ATRAUMATIC, NORMOCEPHALIC - Eye Exam Eye Exam: EOMI, PERRL. absent: Scleral icterus Pupil Exam: PERRL. absent: Miosis, Mydriatic - ENT Exam ENT Exam: Mucous Membranes Moist, Normal Oropharynx - Neck Exam Neck Exam: Full ROM, Normal Inspection - Respiratory Exam Respiratory Exam: Clear to Ausculation Bilateral. absent: Rales, Rhonchi, Wheezes - Cardiovascular Exam Cardiovascular Exam: RRR, +S1, +S2. absent: Gallop, Rubs - GI/Abdominal Exam GI & Abdominal Exam: Soft, Tenderness, Normal Bowel Sounds. absent: Distended, Firm, Guarding, Rigid, Organomegaly, Rebound Additional comments: mild epigastric discomfort to palpation - Extremities Exam Extremities Exam: Normal Inspection. absent: Pedal Edema - Neurological Exam Neurological Exam: Alert, Awake - Psychiatric Exam Psychiatric exam: Normal Affect, Normal Mood - Skin Skin Exam: Dry, Intact, Normal Color, Warm Assessment and Plan - Assessment and Plan (Free Text) Assessment: 72 year old female with history of Alcohol abuse, HTN, and Depression presenting with diffuse abdominal pain. Active treatment of alcohol withdrawal. Prior EGD 04/2017 showed erosive Gastritis and duodenitis without biopsies secondary to history of thrombocytopenia. Plan: -continue CIWA protocol- on scheduled Librium and Ativan PRN -monitor for withdrawal symptoms with low threshold for delirium tremens -supportive care: PPI, sulcralfate, anti-emetics -continue MTV, folic acid, and thiamine -started Miralax for constipation -U/S- hepatic steatosis, cholecystectomy -alcohol cessation counselled provided <Zac,Kovil V - Last Filed: 10/06/17 20:17> Objective - Vital Signs/Intake and Output Vital Signs (last 24 hours): Temp Pulse Resp BP Pulse Ox 98 F 83 20 136/87 97 10/06/17 18:00 10/06/17 18:00 10/06/17 18:00 10/06/17 18:00 10/06/17 18:00 Intake and Output: 10/06/17 10/07/17 18:59 06:59 Intake Total 1620 Balance 1620 - Medications Medications: Current Medications Al Hydrox/Mg Hydrox/Simethicone (Maalox Plus 30 Ml) 30 ml PO TID PRN PRN Reason: Indigestion / Heartburn Last Admin: 10/04/17 13:44 Dose: 30 ml Chlordiazepoxide (Librium) 25 mg PO Q8 [facility] PRN Reason: Protocol Last Admin: 10/06/17 13:59 Dose: 25 mg Enoxaparin Sodium (Lovenox) 40 mg SC DAILY [facility] PRN Reason: Protocol Last Admin: 10/06/17 09:33 Dose: 40 mg Folic Acid (Folic Acid) 1 mg PO DAILY [facility] Last Admin: 10/06/17 09:33 Dose: 1 mg Dextrose/Sodium Chloride (Dextrose 5%/0.45% Ns 1000 Ml) 1,000 mls @ 75 mls/hr IV .[id number] [facility] Last Admin: 10/06/17 20:15 Dose: 75 mls/hr Lorazepam (Ativan) 1 mg IVP Q6H PRN; Protocol PRN Reason: Anxiety Last Admin: 10/04/17 13:54 Dose: 1 mg Magnesium Oxide (Mag-Ox) 400 mg PO BID [facility] Last Admin: 10/06/17 17:22 Dose: 400 mg Metoprolol Tartrate (Lopressor) 25 mg PO BRKDIN [facility] Last Admin: 10/06/17 17:22 Dose: 25 mg Oxycodone HCl (Oxycodone Immediate Release Tab) 5 mg PO Q6H PRN PRN Reason: Pain, moderate (4-7) Last Admin: 10/04/17 21:51 Dose: 5 mg Pantoprazole Sodium (Protonix Ec Tab) 40 mg PO ACB [facility] Last Admin: 10/06/17 08:33 Dose: 40 mg Polyethylene Glycol (Miralax) 17 gm PO DAILY [facility] Last Admin: 10/06/17 13:59 Dose: 17 gm Sucralfate (Carafate Oral Susp) 1 gm PO 0630,1130,1630,2200 [facility] Last Admin: 10/06/17 17:22 Dose: 1 gm Thiamine HCl (Vitamin B1 Tab) 100 mg PO DAILY [facility] Last Admin: 10/06/17 09:33 Dose: 100 mg Vitamin B Complex/Vit C/Folic Acid (Nephro-Tasneem) 1 tab PO 0800 [facility] Last Admin: 10/06/17 08:33 Dose: 1 tab - Labs Labs: 10/04/17 08:20 10/05/17 08:45 PT 12.0 SECONDS (9.4-12.5) 10/03/17 10:50 INR 1.04 (0.93-1.08) 10/03/17 10:50 APTT 28.8 Seconds (25.1-36.5) 10/03/17 10:50 Attending/Attestation - Attestation I have personally seen and examined this patient.: Yes I have fully participated in the care of the patient.: Yes I have reviewed all pertinent clinical information, including history, physical exam and plan: Yes Notes (Text): This is an addendum to GI progress report dictated by the GI Fellow.The patient was seen and examined earlier. Medical records, lab studies, imagings were reviewed. Last 24 hours events reviewed. Agreed with the above treatment plan as outlined in GI Fellow 's notes the with the addition of the following patient feels better Abdominal discomfort has significantly improved Continue low-dose PPI and Carafate therapy No plan for repeat EGD 10/06/17 20:16
--- NOTE | 2017-10-06 23:33 | CON ---
DATE: 10/06/2017 HISTORY OF PRESENT ILLNESS: The patient is a 72-year-old female whom Psychiatry has been seen due to severe alcoholic disorder, reported depression. Dr. Pam Matehws consulted with the patient who at the time of consultation, refused psychiatric services, although she did report that she was depressed. She firmly denied having any suicidal thoughts or thoughts of harming others. There has been some concern on the medical floor as the patient did not feel comfortable with discharge. Today, Dr. Pam Mathews was contacted regarding this issue, however, had indicated that the patient did not meet criteria for psychiatric admission. I agree with this assessment. I interviewed this patient at bedside this morning and I and by rebecca to aide with translation and the patient reports having some depression; however, she is not hopeless. She is future oriented. She does not want to . She does not want to harm herself. She does not want to harm anybody else. She denies any paranoia or any hallucinations or any instances of her "mind playing trick on her. She has been in fair control except for the incident in which she was very upset about possibly discharge on Sunday. She continues to defer on any psychiatric intervention. She does not want psychiatric followup. She does not want psychiatric hospitalization. She is not hallucinating. She does not appear to be hallucinated. 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 Labs and vitals were reviewed by this provider. RELEVANT PSYCHIATRIC MEDICATIONS: The patient is not currently on any psychiatric medications, however, she has been given Librium 25 mg p.o. every 8 hours scheduled as well as Ativan 1 mg IV every 6 hours p.r.n. IMPRESSION: Alcohol use disorder, severe; rule out mood disorder secondary to chronic alcohol consumption. RECOMMENDATIONS: Medicine should continue monitoring the patient's alcohol withdrawal, continue with treatment of the patient's alcohol withdrawal. Regarding the patient's depression, it is very likely also caused by her long-term alcohol use. She would benefit from an antidepressant; however, she defers on any antidepressants at this time or any psychiatric intervention whether it maybe on an outpatient basis or inpatient basis. She is not hopeless. She is not suicidal. She is not hallucinating. She does not present as an acute danger to herself or others. Psychiatry will sign off at this time as she is psychiatrically cleared in this respect. Mark Cabrera MD
[2017-10-07] MEDS: Alum-Mag Hydrox-Simethicone Susp (30 mL) PO PRN (00:36)
[2017-10-07] MEDS: Sucralfate 1 gm/10 ml Oral Susp UD PO SCH (05:48)
[2017-10-07 06:14] VITALS: TEMP 97.8; O2SAT 99
[2017-10-07] MEDS: Dextrose 5%/0.45% NS 1,000 ML IV SCH (08:03)
[2017-10-07] MEDS: Multivitamin Vitamin B Complex (Nephro-Vite) Tab PO SCH (08:16)
[2017-10-07] MEDS: Pantoprazole 40 mg EC Tab PO SCH (08:16)
[2017-10-07 08:18] VITALS: BP 124/73
[2017-10-07] MEDS: Magnesium Oxide 400 mg Tab UD PO SCH (09:36)
[2017-10-07] MEDS: Enoxaparin 40 mg Syringe SC SCH (09:36)
[2017-10-07] MEDS: POLYETHYLENE GLYCOL 3350 17 GM/Dose PACKET PO SCH (09:36)
[2017-10-07 11:17] VITALS: PULSE 91
--- NOTE | 2017-10-08 00:21 | PN ---
DATE: 10/05/2017 SUBJECTIVE: The patient is comfortable. She still feels depressed. She does not want to go to Psych floor. She still needs to be in the hospital. She is feeling better regarding alcohol. She is more comfortable. She is on Librium and Ativan. PHYSICAL EXAMINATION: On 10/05/2017, VITAL SIGNS: Temperature 98.1, heart rate 96, blood pressure 142/79, respirations 18. HEAD AND NECK: Normal. No JVD. No thyromegaly. CHEST: Clear bilaterally. CARDIAC: First sound and second sound normal. ABDOMEN: Soft, nontender, obese. EXTREMITIES: No edema. NEUROLOGIC: Normal. LABORATORY DATA: Sodium 134, potassium 3.9, chloride 98, bicarb 30, BUN 7, creatinine 0.5. Liver function test is normal. AST is coming down to 39, ALT normal, alk phos is normal at 103. Ammonia level was normal and albumin, globulin, lipase are normal. IMPRESSION AND PLAN: 1. The patient has alcoholic abuse problem. She has binge alcohol plus she has been drinking for the last few months. The patient advised to continue Librium. Continue Ativan and she should follow up as outpatient. If she continues to have alcohol problem, maybe Vivitrol shot or Naloxone pills will be given to her 50 mg daily. Her liver enzymes seem stable. Continue current treatment. 2. Morbid obesity. The patient needs to lose weight. Maybe it is not the time now, but she should restrict the diet. Stay away from carbohydrates and use more vegetables and more protein. 3. Acid reflux symptoms, improving. Continue Protonix. Continue Pepcid. Ultrasound of the abdomen shows no gallbladder status post cholecystectomy. 4. The patient has depression. She does not want to go to Psychiatry floor. We will continue her current treatment. 5. Hypertension. Continue metoprolol 25 mg b.i.d. and continue spironolactone 25 mg p.o. daily and continue lisinopril/hydrochlorothiazide 12.5 mg-20 mg daily. Continue magnesium p.o. daily. Follow up clinically. Yevgeniy Briceno MD
--- NOTE | 2017-10-08 03:24 | PN ---
DATE: 10/06/2017 SUBJECTIVE: Patient wants to go home tomorrow, not today. Patient is medically stable and she will be discharged in the morning due to such reasons and she needs more medical therapy. She feels more comfortable to stay that day. Clinically she is stable, but we discussed with the patient, there is nobody to help her and she will be released tomorrow. PHYSICAL EXAMINATION: VITAL SIGNS: On 10/06/2017, temperature 97.8, heart rate 86, blood pressure 133/78, respirations 18, saturation 95% on room air. HEAD AND NECK: Normal. No JVD. No thyromegaly. CHEST: Clear bilaterally. CARDIAC: First sound and second sound normal. No murmur, rub or gallop. ABDOMEN: Soft, obese, nontender. EXTREMITIES: No edema. NEUROLOGIC: Normal. IMPRESSION AND PLAN: 1. Chronic alcohol abuse. Patient needs to be treated for alcohol intoxication and withdrawal, and then follow up as outpatient with Alcoholics Anonymous program plus maybe Vivitrol or naloxone tablets. We will continue to follow up as outpatient. 2. Hypertension. Continue current medicine. She is getting lisinopril/hydrochlorothiazide plus metoprolol and Aldactone, continue current therapy. 3. Patient has morbid obesity, diet instruction given to the patient. 4. Depression. Patient has marital issue problem, and she feels depressed. She does not want to go to psychiatric floor, was over to be admitted; however, she denied any suicidal ideations or any suicidal thoughts. 5. Patient has insomnia. We will continue current therapy now. Clinically, she will be discharged tomorrow. Continue current medications and follow up as outpatient. Yevgeniy Briceno MD
--- NOTE | 2017-10-08 22:47 | DS ---
HOSPITAL COURSE: Patient is medically stable. She has got her prescriptions, but she cannot go to the court due to being hospitalized and medically she has no complaint. No nausea or vomiting. No abdominal pain. No headache. No fever. She has no tremors, it is controlled very well with Librium, and prescription for Librium was given to the patient to be tapered down. She also was given Ambien for sleep. While she was in the hospital, she has been seen by Dr. Orozco, the psychiatrist and also Dr. Frank for her abnormal liver functions. While she was in the hospital, she was monitored clinically, was maintained on blood pressure medicine, given Ativan, and was given Librium by Dr. Orozco for continuation of therapy. The patient was stable. She was seen also by Dr. Frank because of the constipation and acid reflux. She does have ultrasound, shows steatosis of the liver, otherwise, she has cholecystectomy and patient was recommended to stop drinking and monitored as outpatient. Her vital was stable. No respiratory or cardiac complications. She tolerated diet. She is awake, alert, and oriented x3. She walks without any risk of fall, and on discharge, her vitals were stable. PHYSICAL EXAMINATION: VITAL SIGNS: Temperature 97.8, heart rate 78, blood pressure 132/75, respirations 20, saturation 99%. HEAD AND NECK: Normal. No JVD. No thyromegaly. CHEST: Clear bilaterally. CARDIAC: First sound and second sound normal. ABDOMEN: Soft, obese, and nontender. EXTREMITIES: No edema. NEUROLOGIC: Normal. DISCHARGE DIAGNOSES: 1. Chronic alcohol abuse. 2. Alcohol intoxication. 3. Alcohol withdrawal syndrome. 4. Depression. 5. Acid reflux and esophagitis. 6. Hypertension. 7. Morbid obesity. 8. Depression, insomnia, and anxiety. PLAN: Plan is to discharge the patient home. Follow up as outpatient. Patient was given Lexapro 20 mg daily, she had that before and she was doing okay. She was given Ambien 10 mg daily. She was given 40 mg to be tapered every 2 days to 30, 20, 10, for 2 days and stop. She was explained the dosage and should followup as outpatient. Patient was also maintained on her blood pressure medication. Continue the rest of her medication including Zestril or lisinopril/HCTZ 20/12.5, mag oxide 400 b.i.d., metoprolol 25 b.i.d., aspirin 81 mg recommended to the patient for prevention of stroke and heart attack. I advised her to take it over the counter, multivitamins especially B complex. Patient got Librium here, but she will be given , Protonix 40 mg daily, Carafate 1 g 4 times a day. I will see the patient in the office within a week. Yevgeniy Briceno MD
== END 2017-10-07 12:50 | disposition home or self-care (01) | DRG 897 ==
LOC: ED 16:43 → ERH 22:40 → 2RSO 10-03 02:47
PROVIDERS: ADMIT Internal Medicine; ATTEND Internal Medicine
DX: F10.239 Alcohol dependence with withdrawal, unspecified (principal); K74.60 Unspecified cirrhosis of liver; D69.59 Other secondary thrombocytopenia; K44.9 Diaphragmatic hernia without obstruction or gangrene; I10 Essential (primary) hypertension; Y90.8 Blood alcohol level of 240 mg/100 ml or more; K76.0 Fatty (change of) liver, not elsewhere classified; F32.9 Major depressive disorder, single episode, unspecified; K21.9 Gastro-esophageal reflux disease without esophagitis; K29.80 Duodenitis without bleeding; K29.60 Other gastritis without bleeding; K59.00 Constipation, unspecified; E66.01 Morbid (severe) obesity due to excess calories; G47.00 Insomnia, unspecified; Z90.49 Acquired absence of other specified parts of digestive tract; Z87.891 Personal history of nicotine dependence

== ENCOUNTER 2018-01-26 20:39 | Inpatient (IN) | payer MEDICARE, OTHER ==
[2018-01-26 20:39] VITALS: BMI 24.7
[2018-01-26] MEDS ORDERED: Sodium Chloride 0.9% 1,000 ML IV STA ×2 (21:14→22:24)
--- NOTE | 2018-01-26 21:23 | ED PDOC ---
Arrival/HPI - General Time Seen by Provider: 01/26/18 20:43 Historian: Patient - History of Present Illness Narrative History of Present Illness (Text): 01/26/18 21:08 72 year old female, whose past medical history includes hypertension, gastritis, alcohol abuse, and depression, presents to the emergency department complaining of intermittent right-sided abdominal pain for the past day no associated with nausea, vomiting, or diarrhea. Patient denies any fever, chills, chest pain, shortness of breath, urinary symptoms, back pain, neck pain, headache, dizziness, or any other complaints. Time/Duration: Other (past day) Symptom Onset: Gradual Symptom Course: Intermittent Activities at Onset: Light Context: Home Past Medical History - Provider Review Nursing Documentation Reviewed: Yes - Infectious Disease Hx of Infectious Diseases: None - Cardiac Hx Cardiac Disorders: Yes Hx Hypertension: Yes - Pulmonary Hx Respiratory Disorders: No - Neurological Hx Neurological Disorder: Yes Other/Comment: facial palsy,left facial droop 2014 - HEENT Hx HEENT Disorder: Yes Hx Glaucoma: Yes - Renal Hx Renal Disorder: No - Endocrine/Metabolic Hx Endocrine Disorders: No - Hematological/Oncological Hx Blood Disorders: Yes Hx Cirrhosis: Yes - Integumentary Hx Dermatological Disorder: No - Musculoskeletal/Rheumatological Hx Musculoskeletal Disorders: Yes Hx Back Pain: Yes Hx Falls: Yes Hx Osteoporosis: Yes Hx Unsteady Gait: Yes - Gastrointestinal Hx Gastrointestinal Disorders: Yes Hx Gall Bladder Disease: Yes (cholecystectomy) Hx Liver Failure: Yes (cirrhosis, liver biopsy 2013) Other/Comment: colitis, gastritis,abdominal pain - Genitourinary/Gynecological Hx Genitourinary Disorders: Yes Hx Urinary Tract Infection: Yes - Psychiatric Hx Psychophysiologic Disorder: Yes Hx Anxiety: Yes Hx Depression: Yes Hx Panic Disorder: Yes Hx Substance Use: No Other/Comment: alcohol use, as per patient she drinks 3 bottles of rum daily - Surgical History Hx Cholecystectomy: Yes - Anesthesia Hx Anesthesia Reactions: No Hx Malignant Hyperthermia: No - Suicidal Assessment Feels Threatened In Home Enviroment: No Family/Social History - Physician Review Nursing Documentation Reviewed: Yes Family/Social History: No Known Family HX Smoking Status: Former Smoker Hx Alcohol Use: Yes (3 bottles of rum daily) Amount per day: 2 Hx Substance Use: No Substance used: ALCOHOL Hx Substance Use Treatment: No Allergies/Home Meds Allergies/Adverse Reactions: Allergies No Known Allergies Allergy (Verified 10/02/17 16:51) Home Medications: Home Meds Medication Instructions Recorded Confirmed Spironolactone [Aldactone] 25 mg PO DAILY 05/13/17 10/02/17 Review of Systems - Physician Review All systems were reviewed & negative as marked: Yes - Review of Systems Constitutional: absent: Fevers, Other (Chills) Respiratory: absent: SOB Cardiovascular: absent: Chest Pain Gastrointestinal: Abdominal Pain. absent: Diarrhea, Nausea, Vomiting Genitourinary Female: absent: Dysuria, Frequency, Hematuria Musculoskeletal: absent: Back Pain, Neck Pain Neurological: absent: Headache, Dizziness Physical Exam Vital Signs Reviewed: Yes Temperature: Afebrile Blood Pressure: Normal Pulse: Regular Respiratory Rate: Normal Appearance: Positive for: Well-Appearing, Non-Toxic, Comfortable Pain Distress: None Mental Status: Positive for: Alert and Oriented X 3 - Systems Exam Head: Present: Atraumatic, Normocephalic Pupils: Present: PERRL Extroacular Muscles: Present: EOMI Conjunctiva: Present: Normal Mouth: Present: Moist Mucous Membranes Neck: Present: Normal Range of Motion Respiratory/Chest: Present: Clear to Auscultation, Good Air Exchange. No: Respiratory Distress, Accessory Muscle Use Cardiovascular: Present: Regular Rate and Rhythm, Normal S1, S2. No: Murmurs Abdomen: Present: Other (Discomfort to palpation on the right side of abdomen ). No: Distention, Peritoneal Signs, Rebound, Guarding Back: Present: Normal Inspection. No: CVA Tenderness Upper Extremity: Present: Normal Inspection. No: Cyanosis, Edema Lower Extremity: Present: Normal Inspection. No: Edema Neurological: Present: GCS=15, CN II-XII Intact, Speech Normal Skin: Present: Warm, Dry, Normal Color. No: Rashes Psychiatric: Present: Alert, Oriented x 3, Normal Insight, Normal Concentration Medical Decision Making ED Course and Treatment: 01/26/18 21:05 Impression: 72 year old female presents complaining of intermittent right-side abdominal pain for the past day. Plan: -- Labs -- IV Fluids, Toradol -- Urinalysis -- Abdomen Complete US -- ABD and Pelvis CT IV Contrast -- Reassess and disposition Prior Visits: Notes and results from previous visits were reviewed. Progress Notes: EXAM: Abdomen complete US Electronically signed on Jan 26, 2018 11:41:26 PM EDT by: Patric Chapa M.D. IMPRESSION: 1. S/p cholecystectomy. 2. Liver demonstrates increased echogenicity compatible with fatty infiltration. 3. No acute pathology. EXAM: CT SCAN OF THE ABDOMEN AND PELVIS WITH CONTRAST. Electronically signed on Jan 27, 2018 1:26:20 AM EDT by: Preet Hauser M.D IMPRESSION: Significantly distended urinary bladder suggestive of retention. Secondary mild bilateral hydroureteronephrosis. 5.2 cm pedunculated, heavily chronic calcified left lateral fundal subserosal fibroid. Moderately enlarged liver. Fatty liver infiltration. Uncomplicated colonic diverticulosis. Prior cholecystectomy. Moderate diffuse spondylosis. 01/27/18 04:[address] Huitron who is aware and agrees with the plan. Accepts patient into her service. Requests Dr. Frank for consult. - Lab Interpretations I have reviewed the lab results: Yes - RAD Interpretation Radiology Orders: 01/26/18 21:15 ABDOMEN COMPLETE [US] Stat - Medication Orders Current Medication Orders: Sodium Chloride (Sodium Chloride 0.9%) 1,000 mls @ 999 mls/hr IV .Q1H1M STA Stop: 01/26/18 22:14 Discontinued Medications Ketorolac Tromethamine (Toradol) 30 mg IVP ONCE ONE Stop: 01/26/18 21:15 - Scribe Statement The provider has reviewed the documentation as recorded by the Helio Westfall Provider Scribe Attestation: All medical record entries made by the Scribe were at my direction and personally dictated by me. I have reviewed the chart and agree that the record accurately reflects my personal performance of the history, physical exam, medical decision making, and the department course for this patient. I have also personally directed, reviewed, and agree with the discharge instructions and disposition. Disposition/Present on Arrival - Present on Arrival Any Indicators Present on Arrival: No History of DVT/PE: No History of Uncontrolled Diabetes: No Urinary Catheter: No History of Decub. Ulcer: No History Surgical Site Infection Following: None - Disposition Have Diagnosis and Disposition been Completed?: Yes Diagnosis: Abdominal pain, Alcohol abuse, Depression Disposition: HOSPITALIZED Disposition Time: 04:56 Condition: STABLE Discharge Instructions (ExitCare): Alcohol Intoxication (ED), Abuse of Alcohol (ED), Alcohol Dependence (ED) Referrals: FAMILY PROVIDER,NO [Primary Care Provider] - Follow up with primary
[2018-01-26] MEDS ORDERED: Morphine 4 mg/ml ISec IVP STA (21:26)
[2018-01-26 21:30] LABS: HEMOGLOBIN 14.3 g/dL (12.0-16.0); MEAN CELL VOLUME 88.5 fl (80.0-105.0); MEAN CORPUSCULAR HEMOGLOBIN 31.5 pg (25.0-35.0); MEAN CORPUSCULAR HGB CONC 35.6 g/dl (31.0-37.0); MEAN PLATELET VOLUME 9.6 fl (7.0-11.0); RBC 4.54 10^6/uL (3.5-6.1); RED CELL DISTRIBUTION WIDTH 13.1 % (11.5-14.5); WHITE BLOOD COUNT 4.8 10^3/uL (4.5-11.0)
[2018-01-26 21:42] LABS: ALB/GLOB RATIO 1.2 (1.1-1.8); ALBUMIN 4.5 g/dL (3.0-4.8); BLOOD UREA NITROGEN 11 mg/dL (7-21); GFR NON-AFRICAN AMERICAN > 60; LIPASE 136 U/L (23-300)
[2018-01-26 22:07] LABS: ALT/SGPT 56 U/L (7-56); AST/SGOT 108 U/L (14-36)
[2018-01-26] MEDS ORDERED: Iohexol 350 MG/100 ML VIAL ONE (23:12)
[2018-01-27] MEDS ORDERED: Morphine 2 mg/ml ISec IVP STA (05:08)
[2018-01-27] MEDS: Multivitamin With Minerals Tab PO SCH (07:50)
[2018-01-27] MEDS: Pantoprazole 40 mg EC Tab PO SCH (07:50)
[2018-01-27] MEDS: Multivitamin Vitamin B Complex (Nephro-Vite) Tab PO SCH (07:50)
--- NOTE | 2018-01-27 09:30 | CP.PCM.CON ---
<AkbarAlvarado - Last Filed: 01/27/18 12:49> History of Present Illness - History of Present Illness History of Present Illness: Quin Sam is a 72F presenting with recurrent abdominal pain. Recently admitted for abdominal pain and placed on PPI, sulcralfate, anti-emetics 10/10. She continues to drink alcohol excessively. She lives by herself and has poor nutrition. She has been have abdominal pain for 2 weeks with nausea and vomiting. No obvious bleeding. PMHx: Alcohol abuse, CLD, Depression PSHx: Cholecystectom 2012 and Liver Bx 2012 (Fatty liver, no cirrhosis) EGD 06/10 - Coffee ground emesis. Gastritis w/o Bx given thrombocytopenia. 2cm HH. CT A/P 12/10 - Cholecystectomy. Fatty liver. MRCP 03/07 - 8mm GB polyp 12pt ROS completed and negative except for above. Past Patient History - Infectious Disease Hx of Infectious Diseases: None - Past Social History Smoking Status: Former Smoker - CARDIAC Hx Cardiac Disorders: Yes Hx Hypertension: Yes - PULMONARY Hx Respiratory Disorders: No - NEUROLOGICAL Hx Neurological Disorder: Yes Other/Comment: facial palsy,left facial droop 2013 - HEENT Hx HEENT Problems: Yes Hx Glaucoma: Yes - RENAL Hx Chronic Kidney Disease: No - ENDOCRINE/METABOLIC Hx Endocrine Disorders: No - HEMATOLOGICAL/ONCOLOGICAL Hx Blood Disorders: Yes Hx Cirrhosis: Yes - INTEGUMENTARY Hx Dermatological Problems: No - MUSCULOSKELETAL/RHEUMATOLOGICAL Hx Musculoskeletal Disorders: Yes Hx Back Pain: Yes Hx Falls: Yes Hx Osteoporosis: Yes Hx Unsteady Gait: Yes - GASTROINTESTINAL Hx Gastrointestinal Disorders: Yes Hx Gall Bladder Disease: Yes (cholecystectomy) Hx Liver Failure: Yes (cirrhosis, liver biopsy 2012) Other/Comment: colitis, gastritis,abdominal pain - GENITOURINARY/GYNECOLOGICAL Hx Genitourinary Disorders: Yes Hx Urinary Tract Infection: Yes - PSYCHIATRIC Hx Psychophysiologic Disorder: Yes Hx Anxiety: Yes Hx Depression: Yes Hx Panic Symptoms: Yes Hx Substance Use: No Other/Comment: alcohol use, as per patient she drinks 3 bottles of rum daily - SURGICAL HISTORY Hx Cholecystectomy: Yes - ANESTHESIA Hx Anesthesia Reactions: No Hx Malignant Hyperthermia: No Meds Allergies/Adverse Reactions: Allergies Allergy/AdvReac Type Severity Reaction Status Date / Time No Known Allergies Allergy Verified 10/02/17 16:51 - Medications Medications: Current Medications Chlordiazepoxide (Librium) 25 mg PO QID [facility]; Protocol Lorazepam (Ativan) 2 mg IVP Q6H PRN; Protocol PRN Reason: withdrawal Last Admin: 01/27/18 08:31 Dose: 2 mg Lorazepam (Ativan) 1 mg IVP Q4H PRN; Protocol PRN Reason: Anxiety Magnesium Oxide (Mag-Ox) 400 mg PO BID [facility] Multivitamins/Minerals (Therapeutic-M Tab) 1 tab PO 0800 [facility] Last Admin: 01/27/18 07:50 Dose: 1 tab Ondansetron HCl (Zofran Inj) 4 mg IVP Q4H PRN PRN Reason: Nausea/Vomiting Last Admin: 01/27/18 08:27 Dose: 4 mg Pantoprazole Sodium (Protonix Ec Tab) 40 mg PO ACB [facility] Last Admin: 01/27/18 07:50 Dose: 40 mg Spironolactone (Aldactone) 25 mg PO DAILY [facility] Sucralfate (Carafate Oral Susp) 1 gm PO 0630,1130,1630,2200 [facility] Vitamin B Complex/Vit C/Folic Acid (Nephro-Tasneem) 1 tab PO 0800 [facility] Last Admin: 01/27/18 07:50 Dose: 1 tab Physical Exam - Constitutional Appears: Non-toxic, No Acute Distress - Head Exam Head Exam: NORMAL INSPECTION, NORMOCEPHALIC - Eye Exam Eye Exam: EOMI, Normal appearance - ENT Exam ENT Exam: Mucous Membranes Moist, Normal Exam - Respiratory Exam Respiratory Exam: Clear to Auscultation Bilateral, NORMAL BREATHING PATTERN - Cardiovascular Exam Cardiovascular Exam: REGULAR RHYTHM, +S1, +S2 - GI/Abdominal Exam GI & Abdominal Exam: Normal Bowel Sounds, Organomegaly, Soft, Tenderness - Extremities Exam Extremities exam: Positive for: normal inspection. Negative for: tenderness - Neurological Exam Neurological exam: Altered, CN II-XII Intact - Psychiatric Exam Psychiatric exam: Normal Affect, Normal Mood - Skin Skin Exam: Dry, Intact, Normal Color Results - Vital Signs Recent Vital Signs: Last Vital Signs Temp 98.2 F 01/27/18 07:46 Pulse 67 01/27/18 07:46 Resp 20 01/27/18 07:46 BP 142/87 01/27/18 07:46 Pulse Ox 97 01/27/18 07:46 - Labs Result Diagrams: 01/26/18 20:58 01/26/18 20:58 Labs: Laboratory Results - last 24 hr 01/26/18 01/26/18 01/26/18 20:58 20:58 20:58 WBC 4.8 RBC 4.54 Hgb 14.3 Hct 40.2 MCV 88.5 MCH 31.5 MCHC 35.6 RDW 13.1 Plt Count 166 MPV 9.6 Sodium 125 L Potassium 3.7 Chloride 83 L Carbon Dioxide 22 Anion Gap 24 H BUN 11 Creatinine 0.7 Est GFR ( Amer) > 60 Est GFR (Non-Af Amer) > 60 Random Glucose 90 Calcium 9.0 Total Bilirubin 0.9 AST 108 H D ALT 56 Alkaline Phosphatase 170 H D Total Protein 8.2 Albumin 4.5 Globulin 3.8 Albumin/Globulin Ratio 1.2 Lipase 136 Alcohol, Quantitative 358 H* Assessment & Plan - Assessment and Plan (Free Text) Assessment: #Recurrent Abdominal pain #Chronic alcohol abuse #Alcoholic liver disease #Obesity #Depression PLAN: -CT reviewed, no acute changes. -Continue symptom management: Zofran, PPI, Sucralfate -[facility] protocol -Recommend folate, Thiamine supplements. - Date & Time Date: 01/27/18 Time: 12:52 <Fransisco Frank V - Last Filed: 01/27/18 18:43> Meds - Medications Medications: Current Medications Chlordiazepoxide (Librium) 25 mg PO QID [facility]; Protocol Last Admin: 01/27/18 18:25 Dose: 25 mg Multivitamins/Vitamin C 10 ml/Thiamine HCl 100 mg/ Folic Acid 1 mg/ Sodium Chloride 1,011.2 mls @ 100 mls/hr IV .Q10H7M ONE Stop: 01/28/18 03:06 Last Admin: 01/27/18 18:25 Dose: 100 mls/hr Lorazepam (Ativan) 2 mg IVP Q6H PRN; Protocol PRN Reason: withdrawal Last Admin: 01/27/18 15:54 Dose: 2 mg Lorazepam (Ativan) 1 mg IVP Q4H PRN; Protocol PRN Reason: Anxiety Last Admin: 01/27/18 18:24 Dose: 1 mg Magnesium Oxide (Mag-Ox) 400 mg PO BID [facility] Last Admin: 01/27/18 18:28 Dose: 400 mg Multivitamins/Minerals (Therapeutic-M Tab) 1 tab PO 0800 [facility] Last Admin: 01/27/18 07:50 Dose: 1 tab Ondansetron HCl (Zofran Inj) 4 mg IVP Q4H PRN PRN Reason: Nausea/Vomiting Last Admin: 01/27/18 18:25 Dose: 4 mg Pantoprazole Sodium (Protonix Ec Tab) 40 mg PO ACB [facility] Last Admin: 01/27/18 07:50 Dose: 40 mg Spironolactone (Aldactone) 25 mg PO DAILY [facility] Last Admin: 01/27/18 11:31 Dose: 25 mg Sucralfate (Carafate Oral Susp) 1 gm PO 0630,1130,1630,2200 [facility] Last Admin: 01/27/18 15:53 Dose: 1 gm Vitamin B Complex/Vit C/Folic Acid (Nephro-Tasneem) 1 tab PO 0800 [facility] Last Admin: 01/27/18 07:50 Dose: 1 tab Results - Vital Signs Recent Vital Signs: Last Vital Signs Temp 98.7 F 01/27/18 17:45 Pulse 91 H 01/27/18 17:46 Resp 18 01/27/18 17:45 BP 123/82 01/27/18 17:45 Pulse Ox 98 01/27/18 17:45 - Labs Result Diagrams: 01/26/18 20:58 01/26/18 20:58 Labs: Laboratory Results - last 24 hr 01/26/18 01/26/18 01/26/18 20:58 20:58 20:58 WBC 4.8 RBC 4.54 Hgb 14.3 Hct 40.2 MCV 88.5 MCH 31.5 MCHC 35.6 RDW 13.1 Plt Count 166 MPV 9.6 Sodium 125 L Potassium 3.7 Chloride 83 L Carbon Dioxide 22 Anion Gap 24 H BUN 11 Creatinine 0.7 Est GFR ( Amer) > 60 Est GFR (Non-Af Amer) > 60 Random Glucose 90 Calcium 9.0 Total Bilirubin 0.9 AST 108 H D ALT 56 Alkaline Phosphatase 170 H D Total Protein 8.2 Albumin 4.5 Globulin 3.8 Albumin/Globulin Ratio 1.2 Lipase 136 Alcohol, Quantitative 358 H* Attending/Attestation - Attestation I have personally seen and examined this patient.: Yes I have fully participated in the care of the patient.: Yes I have reviewed all pertinent clinical information: Yes Notes (Text): This is an addendum to GI consult report dictated by the GI Fellow.The patient was seen and examined earlier. Medical records, lab studies, imagings were reviewed. Last 24 hours events reviewed. Agreed with the above treatment plan as outlined in GI Fellow 's notes with the addition of the following Active admitted with abdomenal pain Active EtOH use Last drink was before admission Plan Clear liquid diet PPI and carafate 01/27/18 18:41
--- NOTE | 2018-01-27 09:48 | US ---
Date of service: 01/26/2018 HISTORY: pain COMPARISON: None. TECHNIQUE: Sonographic evaluation of the abdomen. FINDINGS: LIVER: Measures 14.22 x 12.16 cm. Increased echogenicity of the liver parenchyma. No mass. No intrahepatic bile duct dilatation. GALLBLADDER: Removed COMMON BILE DUCT: Measures 5 mm. No stones. No dilatation. PANCREAS: Nonvisualized due to bowel gas RIGHT KIDNEY: Measures 10.77 x 5.96 x 6.23cm. Normal echogenicity. No calculus, mass, or hydronephrosis. LEFT KIDNEY: Measures 11.62 x 5.03 x 5.59cm. Normal echogenicity. No calculus, mass, or hydronephrosis. SPLEEN: Normal in size and contour. No mass. 9.42 x 3.72 AORTA: Not visualized IVC: Not visualized OTHER FINDINGS: None. IMPRESSION: Fatty infiltration of the liver. Previous cholecystectomy. No acute findings
--- NOTE | 2018-01-27 11:11 | CP.PCM.PCO ---
Addendum Addendum: I reviewed medical assessment and met with patient at bedside with faroese speaking interpretor. Full assessment was postponed because patient was acutely nauseated and vomiting during my visit. I was able to confirm that patient is depressed however she has no current thoughts to harm herself. Psychiatry will f/u with patient tomorrow 01/28/18 and re-attempt interview when patient is physically able to participate in an interview. Medicine can c/w alcohol withdrawal protocol. 01/27/18 11:09
[2018-01-27] MEDS: Magnesium Oxide 400 mg Tab UD PO SCH ×2 (11:30→18:28)
[2018-01-27] MEDS: Sucralfate 1 gm/10 ml Oral Susp UD PO SCH ×3 (11:31→21:23)
--- NOTE | 2018-01-27 12:59 | CT ---
Date of service: 01/26/2018 PROCEDURE: CT Abdomen and Pelvis with contrast HISTORY: abdominal pain COMPARISON: 10/02/2017 CT TECHNIQUE: Contrast dose: 100 cc of Omni 350 Radiation dose: Total exam DLP = 634.28 mGy-cm. This CT exam was performed using one or more of the following dose reduction techniques: Automated exposure control, adjustment of the mA and/or kV according to patient size, and/or use of iterative reconstruction technique. FINDINGS: LOWER THORAX: Unremarkable. LIVER: Severe fatty infiltration of the liver GALLBLADDER AND BILE DUCTS: Gallbladder removed PANCREAS: Unremarkable. No gross lesion or ductal dilatation. SPLEEN: Unremarkable. ADRENALS: Unremarkable. No mass. KIDNEYS AND URETERS: Mild bilateral hydronephrosis most likely secondary to bladder distention VASCULATURE: Unremarkable. No aortic aneurysm. No aortic atherosclerotic calcification or mural plaque present. BOWEL: Unremarkable. No obstruction. No gross mural thickening. APPENDIX: Normal appendix. PERITONEUM: Unremarkable. No free fluid. No free air. LYMPH NODES: Unremarkable. No enlarged lymph nodes. BLADDER: Severe distention of the bladder which extends above the level of the iliac crests REPRODUCTIVE: Extensive calcification in the uterine fundus consistent with fibroids. BONES: No acute fracture. OTHER FINDINGS: The report concurs with the preliminary [facility] report IMPRESSION: Severe fatty infiltration of the liver. Severe distention of the urinary bladder with mild bilateral hydronephrosis
[2018-01-27] MEDS ORDERED: Multivitamin (MVI) 10 ML, Thiamine 100 MG, Folic Acid 1 MG in Sodium Chloride 0.9% 1,00... IV ONE (17:00)
[2018-01-28 00:54] LABS: URINE BILIRUBIN NEGATIVE (NEGATIVE); URINE BLOOD TRACE-INTACT (NEGATIVE); URINE GLUCOSE (UA) NEGATIVE (NEGATIVE); URINE LEUKOCYTE ESTERASE NEGATIVE Leu/uL (NEGATIVE); URINE PROTEIN NEGATIVE mg/dL (<30 mg/dL); URINE UROBILINOGEN 0.2 E.U./dL (<1 E.U./dL)
[2018-01-28 00:55] LABS: URINE APPEARANCE CLEAR (CLEAR); URINE COLOR YELLOW (YELLOW)
[2018-01-28 01:13] LABS: URINE EPITHELIAL CELLS 0 - 2 /hpf (0-5); URINE RBC 0 - 2 /hpf (0-2); URINE WBC 0 - 2 /hpf (0-6)
--- NOTE | 2018-01-28 03:12 | HP ---
DATE OF EXAM:01/27/18 The patient was seen and examined at the bedside on 01/27/2018. CHIEF COMPLAINT: Abdominal pain, nausea, and vomiting. HISTORY OF PRESENT ILLNESS: Ms. Quin Sam is a 72-year-old female with past medical history of hypertension, gastritis, alcohol abuse, depression, and came to the emergency department complaining of intermittent right-sided abdominal pain for the past day associated with nausea, vomiting. The patient denies any fevers or chills. No hematuria or hematochezia. No shortness of breath. No urinary symptoms. No back pain. No headache. No dizziness. We admitted the patient. CAT scan of abdomen and pelvis done, seen by GI and Psychiatry. PAST MEDICAL HISTORY: Hypertension, facial palsy, left facial droop in 2013, glaucoma, cirrhosis, back pain, falls, osteoporosis, unsteady gait, cholecystectomy, cirrhosis of the liver, status post biopsy, colitis, gastritis, abdominal pain, genitourinary disorder, urinary tract infection, anxiety, depression, and panic disorder. FAMILY HISTORY: Father and mother, noncontributory. HABITS: Former smoker, alcohol, yes three bottles of rum everyday. Substance abuse, no. ALLERGIES: THE PATIENT IS NOT ALLERGIC TO ANY MEDICATIONS. HOME MEDICATIONS: Spironolactone. REVIEW OF SYSTEMS: The patient was seen and examined at the bedside on the medical floor and was having anxiety. No fever. No chills. No shortness of breath. No chest pain. No abdominal pain at the moment. No diarrhea, but feeling nauseous. No dysuria, frequency, or hematuria. No back pain or neck pain. No headache. No dizziness. PHYSICAL EXAMINATION: VITAL SIGNS: Temperature 98.7, pulse 95, blood pressure 123/82, respiratory rate 18, and maximum pulse was 113. HEENT: Head; normocephalic and atraumatic. Eyes; PERRLA. Extraocular muscles intact. Conjunctivae clear. Nose patent. Mucous membranes moist. NECK: Supple. No carotid bruits, JVD or thyromegaly. CHEST: Bilaterally symmetrical. HEART: S1 and S2 positive. LUNGS: Clear to auscultation. ABDOMEN: Soft. Bowel sounds present. No organomegaly. EXTREMITIES: No edema. No cyanosis. NEUROLOGIC: The patient is awake and alert and follows simple commands. LABORATORY DATA: White blood cells 4.8, hemoglobin 14.3, hematocrit 40.2, and platelets 166. Sodium 125, potassium 3.7, BUN 11, and creatinine 0.7. AST 108. ASSESSMENT AND PLAN: Ms. Quin Sam, 72 years old lady with hyponatremia, hypochloremia, abnormal liver function tests, alcohol level 358, seen by Dr. Mark Cabrera, psychiatrist and Dr. Frank, refinery technician. The patient has a history of alcohol abuse, depression, cholecystectomy, and status post liver biopsy. Esophagogastroduodenoscopy was done on 06/10 due to coffee-ground emesis, thrombocytopenia 2 cm, H and H, fatty liver. MRCP was done. Frequent abdominal pain. Chronic alcohol abuser. Alcoholic liver disease, obesity, and depression. CT reviewed, no acute changes. We will give Zofran, PPI, sucralfate, folate, thiamine supplement by GI. Last visit was yesterday. Started clear liquid diet. Due to tachycardia, transferred the patient to the telemetry. drip started. CAT scan of the abdomen done showed severe fatty infiltration of the liver, severe distention of the urinary bladder with mild bilateral hydronephrosis. Abdominal ultrasound done also. According to Dr. Marcelo Rubio, previous cholecystectomy, no acute finding. Consult called the Dr. Frank and psychiatrist Pam Mathews. Restarted spironolactone. Ativan started. Librium protocol started. Vitamins given. GI prophylaxis given. Repeat labs. The patient states she is on seizure precautions and DT precautions. We will follow. Belkys Huitron MD [place]
[2018-01-28] MEDS: Sucralfate 1 gm/10 ml Oral Susp UD PO SCH ×4 (05:51→23:00)
[2018-01-28 06:32] LABS: INR 0.99; PROTHROMBIN TIME 11.4 SECONDS (9.4-12.5)
[2018-01-28 06:34] LABS: IRON 74 ug/dL (45-180)
[2018-01-28 06:43] LABS: % IRON SATURATION 41 % (20-55); TOTAL IRON BINDING CAPACITY 180 ug/dL (265-497)
[2018-01-28 06:45] LABS: BLOOD UREA NITROGEN 11 mg/dL (7-21); CALCIUM 8.7 mg/dL (8.4-10.5); GFR NON-AFRICAN AMERICAN > 60; HDL CHOLESTEROL 108 mg/dL (29-60)
[2018-01-28 06:52] LABS: TROPONIN I 0.02 ng/mL
[2018-01-28 06:53] LABS: LDL CHOLESTEROL 47 mg/dL (0-129)
[2018-01-28 07:01] LABS: MEAN CELL VOLUME 92.1 fl (80.0-105.0); MEAN CORPUSCULAR HEMOGLOBIN 30.4 pg (25.0-35.0); MEAN PLATELET VOLUME 10.4 fl (7.0-11.0); RBC 3.68 10^6/uL (3.5-6.1); RED CELL DISTRIBUTION WIDTH 13.6 % (11.5-14.5); WHITE BLOOD COUNT 4.2 10^3/uL (4.5-11.0)
[2018-01-28 07:17] LABS: HEMOGLOBIN 11.2 g/dL (12.0-16.0)
[2018-01-28] MEDS: Multivitamin Vitamin B Complex (Nephro-Vite) Tab PO SCH (08:01)
[2018-01-28] MEDS: Multivitamin With Minerals Tab PO SCH (08:01)
[2018-01-28] MEDS: Pantoprazole 40 mg EC Tab PO SCH (08:02)
[2018-01-28] MEDS: Magnesium Oxide 400 mg Tab UD PO SCH ×2 (09:27→17:32)
[2018-01-28] MEDS: Sodium Chloride 0.9% 100 ML IV SCH ×4 (09:42→14:53)
--- NOTE | 2018-01-28 11:44 | CP.PCM.PN ---
<Smitha Bates - Last Filed: 01/28/18 11:45> Subjective - Date & Time of Evaluation Date of Evaluation: 01/28/18 Time of Evaluation: 11:41 - Subjective Subjective: Gastroenterology Fellow/PGY6 Progress Note Patient notes improving epigastric pain, pain scale 8/10 from 01/02. Notes one episode of diarrhea yesterday. tolerating diet. A 12-point review of systems negative except for as above. Objective - Vital Signs/Intake and Output Vital Signs (last 24 hours): Temp Pulse Resp BP Pulse Ox 98.6 F 93 H 20 127/80 96 01/28/18 00:19 01/28/18 10:00 01/28/18 00:19 01/28/18 00:19 01/28/18 00:19 Intake and Output: 01/28/18 01/28/18 06:59 18:59 Intake Total 1040 Output Total 900 Balance 140 - Medications Medications: Current Medications Chlordiazepoxide (Librium) 25 mg PO QID [facility]; Protocol Last Admin: 01/28/18 09:27 Dose: 25 mg Sodium Chloride (Sodium Chloride 0.9%) 100 mls @ 75 mls/hr IV .Q1H20M [facility] Last Admin: 01/28/18 09:42 Dose: 75 mls/hr Lorazepam (Ativan) 2 mg IVP Q6H PRN; Protocol PRN Reason: withdrawal Last Admin: 01/27/18 15:54 Dose: 2 mg Lorazepam (Ativan) 1 mg IVP Q4H PRN; Protocol PRN Reason: Anxiety Last Admin: 01/28/18 08:35 Dose: 1 mg Magnesium Oxide (Mag-Ox) 400 mg PO BID [facility] Last Admin: 01/28/18 09:27 Dose: 400 mg Multivitamins/Minerals (Therapeutic-M Tab) 1 tab PO 0800 [facility] Last Admin: 01/28/18 08:01 Dose: 1 tab Ondansetron HCl (Zofran Inj) 4 mg IVP Q4H PRN PRN Reason: Nausea/Vomiting Last Admin: 01/28/18 08:36 Dose: 4 mg Pantoprazole Sodium (Protonix Ec Tab) 40 mg PO ACB [facility] Last Admin: 01/28/18 08:02 Dose: 40 mg Spironolactone (Aldactone) 25 mg PO DAILY [facility] Last Admin: 01/28/18 09:27 Dose: 25 mg Sucralfate (Carafate Oral Susp) 1 gm PO 0630,1130,1630,2200 [facility] Last Admin: 01/28/18 10:45 Dose: 1 gm Vitamin B Complex/Vit C/Folic Acid (Nephro-Tasneem) 1 tab PO 0800 [facility] Last Admin: 01/28/18 08:01 Dose: 1 tab - Labs Labs: 01/28/18 05:45 01/28/18 05:45 PT 11.4 SECONDS (9.4-12.5) 01/28/18 05:45 INR 0.99 01/28/18 05:45 - Constitutional Appears: Non-toxic, No Acute Distress - Head Exam Head Exam: ATRAUMATIC, NORMOCEPHALIC - Eye Exam Eye Exam: EOMI, PERRL. absent: Scleral icterus Pupil Exam: absent: Miosis, Mydriatic - ENT Exam ENT Exam: Mucous Membranes Moist, Normal Oropharynx - Neck Exam Neck Exam: Full ROM, Normal Inspection - Respiratory Exam Respiratory Exam: Clear to Ausculation Bilateral. absent: Rales, Rhonchi, Wheezes - Cardiovascular Exam Cardiovascular Exam: RRR, +S1, +S2. absent: Gallop, Rubs - GI/Abdominal Exam GI & Abdominal Exam: Soft, Tenderness, Normal Bowel Sounds. absent: Distended, Firm, Guarding, Rigid, Rebound Additional comments: epigastric tenderness to palpation - Extremities Exam Extremities Exam: Normal Inspection. absent: Pedal Edema - Neurological Exam Neurological Exam: Alert, Awake Additional comments: no asterixis - Psychiatric Exam Psychiatric exam: Normal Affect, Normal Mood - Skin Skin Exam: Dry, Intact, Normal Color, Warm Assessment and Plan - Assessment and Plan (Free Text) Assessment: 72 year old female with PMH of chronic elevated transaminases due to active alcohol abuse, Obesity, and Depression presenting with abdominal pain. Active treatment of epigastric pain likely secondary to alcohol abuse , elevated transaminases 2/2 alcohol abuse, alcohol withdrawal. CT A/P IV contrast showed mild bilateral hydronephrosis with bladder distension and hepatic steatosis. EGD 05/2017 showed gastritis and duodenitis without biopsies due to thrombocytopenia. No prior colonoscopy. Plan: -improving abdominal pain -continue PPI and carafate -supportive care- anti-emetics, pain control -[facility] protocol -trend LFTs -continue vitamin supplementation -advance diet as tolerated -counselled on alcohol cessation -will follow clinical course <rFansisco Frank V - Last Filed: 01/28/18 23:31> Objective - Vital Signs/Intake and Output Vital Signs (last 24 hours): Temp Pulse Resp BP Pulse Ox 98.4 F 86 21 158/98 H 96 01/28/18 18:00 01/28/18 22:00 01/28/18 18:00 01/28/18 18:00 01/28/18 00:19 Intake and Output: 01/28/18 01/29/18 18:59 06:59 Output Total 2300 Balance -2300 - Medications Medications: Current Medications Chlordiazepoxide (Librium) 25 mg PO QID [facility]; Protocol Last Admin: 01/28/18 23:00 Dose: 25 mg Multivitamins/Vitamin C 10 ml/Thiamine HCl 100 mg/ Folic Acid 1 mg/ Sodium Chloride 1,011.2 mls @ 100 mls/hr IV .Q10H7M ONE Stop: 01/29/18 02:07 Last Admin: 01/28/18 17:07 Dose: 100 mls/hr Lorazepam (Ativan) 2 mg IVP Q6H PRN; Protocol PRN Reason: withdrawal Last Admin: 01/28/18 18:19 Dose: 2 mg Lorazepam (Ativan) 1 mg IVP Q4H PRN; Protocol PRN Reason: Anxiety Last Admin: 01/28/18 14:37 Dose: 1 mg Magnesium Oxide (Mag-Ox) 400 mg PO BID [facility] Last Admin: 01/28/18 17:32 Dose: 400 mg Multivitamins/Minerals (Therapeutic-M Tab) 1 tab PO 0800 [facility] Last Admin: 01/28/18 08:01 Dose: 1 tab Ondansetron HCl (Zofran Inj) 4 mg IVP Q4H PRN PRN Reason: Nausea/Vomiting Last Admin: 01/28/18 08:36 Dose: 4 mg Pantoprazole Sodium (Protonix Ec Tab) 40 mg PO ACB [facility] Last Admin: 01/28/18 08:02 Dose: 40 mg Spironolactone (Aldactone) 25 mg PO DAILY [facility] Last Admin: 01/28/18 09:27 Dose: 25 mg Sucralfate (Carafate Oral Susp) 1 gm PO 0630,1130,1630,2200 [facility] Last Admin: 01/28/18 23:00 Dose: 1 gm Vitamin B Complex/Vit C/Folic Acid (Nephro-Tasneem) 1 tab PO 0800 [facility] Last Admin: 01/28/18 08:01 Dose: 1 tab Zolpidem Tartrate (Ambien) 5 mg PO HS PRN; Protocol PRN Reason: Insomnia - Labs Labs: 01/28/18 05:45 01/28/18 05:45 PT 11.4 SECONDS (9.4-12.5) 01/28/18 05:45 INR 0.99 01/28/18 05:45 Attending/Attestation - Attestation I have personally seen and examined this patient.: Yes I have fully participated in the care of the patient.: Yes I have reviewed all pertinent clinical information, including history, physical exam and plan: Yes Notes (Text): p 01/28/18 23:31
[2018-01-28 13:13] LABS: FOLATE > 20.0 ng/mL
[2018-01-28] MEDS ORDERED: Multivitamin (MVI) 10 ML, Thiamine 100 MG, Folic Acid 1 MG in Sodium Chloride 0.9% 1,00... IV ONE (16:01)
[2018-01-28 19:21] LABS: TROPONIN I < 0.01 ng/mL
--- NOTE | 2018-01-29 00:57 | CON ---
DATE: 01/28/2018 REASON FOR CONSULTATION: Cardiac evaluation, epigastric pain. BRIEF CLINICAL HISTORY: This is a 72-year-old female with a past medical history significant for hypertension, gastritis, alcohol abuse, depression, and came to the emergency room complaining of abdominal pain radiating to the chest. Denies any chest pain. Denies any shortness of breath. Denies any palpitation. The patient is very depressed. According to her, abandoned her and went with other girl. Since then, the patient was very depressed and started drinking heavy. PAST MEDICAL HISTORY: Significant for hypertension, facial palsy, left facial droop in 2013, glaucoma, cirrhosis, back pain, osteoporosis, and unsteady gait. PAST SURGICAL HISTORY: Significant for cholecystectomy 4 or 5 years ago and history of drainage of the pilonidal cyst. SOCIAL HISTORY: Denies any smoking, but history of heavy alcohol abuse, 3 bottles of rum everyday. ALLERGIES: NO KNOWN DRUG ALLERGY. CURRENT MEDICATIONS: At home the patient is taking Librium, vitamin B complex, mag oxide, metoprolol succinate 25 mg, and lisinopril/hydrochlorothiazide combination 20/12.5 mg daily. REVIEW OF SYSTEMS: As per HPI. PHYSICAL EXAMINATION VITAL SIGNS: Height of the patient 5 feet 6 inches, weight of the patient 159 pounds, body mass index 25.8 kg/m2. Rest of the vitals; temperature afebrile, heart rate 97, blood pressure 123/80. HEENT: PERRLA. Extraocular muscles intact. NECK: Supple. No carotid bruit or thyromegaly. CHEST: Clear to auscultation. HEART: S1, S2, regular. ABDOMEN: Soft. EXTREMITIES: Clubbing and cyanosis negative.. LABORATORY DATA: Blood workup as follows: WBC 4.2, hemoglobin 11.8, hematocrit 33.9, and platelet count 111. Chemistry shows sodium 131, potassium 3.8, chloride 95, bicarbonate 31, anion gap of 8, BUN 11, and creatinine 0.6. Troponin is 0.02. EKG shows normal sinus. No acute ST-T changes noted. IMPRESSION: This is a 72-year-old female with a past medical history significant for heavy tobacco abuse, alcohol, hypertension, hyperlipidemia, diabetes, and obesity. The patient because of the family issues admitted with epigastric pain radiating to the chest. Multiple risk of coronary artery disease suggest rule out myocardial infarction. We will get echo to assess left ventricular function, admitting blood alcohol level 358, alcoholic intoxication, suggested lipid profile, TSH, hemoglobin A1c. Once the patient became sober, consider stress test may be as an outpatient. We will follow with you. . We will get another stat troponin. If troponin remains negative, will discontinue telemetry. Thank you Dr. Huitron for providing us the opportunity in taking care of the patient, Quin Gomezya. Lise Mg MD
--- NOTE | 2018-01-29 01:16 | CON ---
DATE: <> HISTORY OF PRESENT ILLNESS: In short, the patient is a 72-year-old female. The patient was admitted on the medical side for evaluation of intermittent right-sided abdominal pain associated with nausea, vomiting, and diarrhea. The patient has a history of alcohol use disorder, multiple admissions to the medical side. Psych consult was called for evaluation of depression, and the patient has a history of alcohol use disorder. Dr. Cabrera attempted to speak to the patient yesterday, but the patient had physical symptoms of withdrawals and not able to hold the interview. The patient was seen today. The patient presented to be anxious, very poor historian. The patient reported that her left her for another woman. She was feeling depressed and started to drink. The patient reported that she was drinking about 1 bottle of vodka and some beer daily. The patient reported that she has withdrawal symptoms, inability to sleep. The patient denied that she wants to kill herself or others, but basically the patient was coping with the stress not in the healthy way and drinking. The patient was opened for option of inpatient rehab. The patient denied hearing voices, denied seeing things, denied paranoid ideation. The patient impulses seems to be unpredictable. Out of frustration, the patient would throw things towards the staff, but no physical aggression or agitation. PHYSICAL EXAMINATION: VITAL SIGNS: Seems to be stable. Temperature is 97.8, pulse is 97, blood pressure 123/84, and respirations 19. MENTAL STATUS EXAM: The patient presented to be alert, somewhat annoyed and irritable, was not willing to have interview, intermittent eye contact. Mood described as depressed. Affect was tearful and constricted. Thought process seems to be goal directed. Thought content, the patient reported being depressed, but denied any thoughts of harming herself or others, protective factor is her son. The patient's insight and judgment seems to be limited. Impulses are not predictable. MEDICATIONS: Reviewed. The patient is on Librium 25 mg four times a day schedule. The patient is on Ativan, magnesium oxide, multivitamins, thiamine and folic acid, Protonix, sodium chloride, spironolactone, sucralfate, and vitamin B complex, and Ambpantera this travel writer will add. LABORATORY DATA: Reviewed. Coagulation reviewed. Chemistry reviewed. Urinalysis reviewed. Alcohol level was 358 at the time of admission. IMPRESSION: Alcohol withdrawal symptoms, rule out adjustment disorder, rule out major depressive disorder, alcohol use disorder, and rule out substance-induced mood disorder. PLAN: Continue current management. Continue current medications. The patient expressed her interest to go to inpatient rehab. The patient wants to get better. The patient asked for medication for insomnia, Ambien will be started. We will follow up and advise accordingly. Thank you very much for letting me to participate in the care of your patient. Pam Mathews MD
--- NOTE | 2018-01-29 03:31 | PN ---
DATE: 01/28/2018 SUBJECTIVE: The patient is a 72-year-old female. The patient was seen and examined at the bedside. The patient is looking comfortable. No nausea, vomiting, or diarrhea. No hematuria or hematochezia. No swelling of the legs. No chest pain. No palpitation. No headache. No dizziness. The patient had episodes of diarrhea yesterday. Tolerating diet. No fever. No chills. Abdominal pain improved. PHYSICAL EXAMINATION: VITAL SIGNS: Temperature 98.6, pulse 93, respiratory rate 20, blood pressure 127/80, and pulse oxymetry 96%. HEENT: Head is normocephalic and atraumatic. Eyes; PERRLA. Extraocular muscles intact. Conjunctivae clear. Nose patent. NECK: Supple. No carotid bruits. No JVD or thyromegaly. CHEST: Bilaterally symmetrical. HEART: S1 and S2 positive. LUNGS: Clear to auscultation. ABDOMEN: Soft. Bowel sounds present. No organomegaly. EXTREMITIES: No edema. No cyanosis. NEUROLOGIC: The patient is awake and alert. Moving all 4 extremities. No focal deficits. MEDICATIONS: Librium, sodium chloride, Ativan, magnesium oxide, multivitamins, Zofran, Protonix, Aldactone, and Carafate. LABORATORY DATA: White blood cells 4.2, hemoglobin 11.2, hematocrit 36.9, and platelets 111. Sodium 131, potassium 3.8, BUN 11, and creatinine 0.6, and glucose 101. ASSESSMENT AND PLAN: Ms. Quin Sam is a 72-year-old with leukopenia, anemia, thrombocytopenia, hyponatremia with chronic elevated transaminases due to active alcohol abuse, obesity, depression, came with abdominal pain, maybe she has gastritis due to alcohol abuse and alcohol withdrawals. CT with IV contrast showed mild bilateral hydronephrosis with bladder distention and hepatic steatosis. EGD on 06/12/2017 showed gastritis, duodenitis, liver biopsy due to thrombocytopenia. No prior colonoscopies. Abdominal pain is improving. Continue proton pump inhibitor. Getting banana bag. We will monitor the trend of liver function test. Supplementation provided. Advance diet as tolerated. Urged to quit alcohol. Urged the patient to walk around, physical therapy ordered. Gastrointestinal and deep venous thrombosis prophylaxis. Discussion done with the nursing staff. Continue spironolactone, Ambien for sleep, Ativan for withdrawals, Librium tapering doses, magnesium oxide, multivitamins, Protonix, Zofran. Seen by psychiatrist and gastrointestinal. Repeat labs. We will follow up. Belkys Huitron MD
[2018-01-29] MEDS: Sucralfate 1 gm/10 ml Oral Susp UD PO SCH ×4 (06:00→21:45)
[2018-01-29 06:49] LABS: ALB/GLOB RATIO 1.1 (1.1-1.8); ALBUMIN 3.2 g/dL (3.0-4.8); ALT/SGPT 40 U/L (7-56); AST/SGOT 63 U/L (14-36); BLOOD UREA NITROGEN 5 mg/dL (7-21); CALCIUM 8.7 mg/dL (8.4-10.5); GFR NON-AFRICAN AMERICAN > 60
[2018-01-29 07:02] LABS: BASO # 0.01 K/mm3 (0.0-2.0); BASO % 0.2 % (0.0-3.0); EOS # 0.1 (0.0-0.7); EOS % 2.8 % (1.5-5.0); GRAN # 3.07 (1.4-6.5); GRAN % 65.7 % (50.0-68.0); HEMOGLOBIN 11.1 g/dL (12.0-16.0); LYMPH # 1.1 (1.2-3.4); LYMPH % 22.5 % (22.0-35.0); MEAN CELL VOLUME 93.4 fl (80.0-105.0); MEAN CORPUSCULAR HEMOGLOBIN 30.7 pg (25.0-35.0); MEAN CORPUSCULAR HGB CONC 32.9 g/dl (31.0-37.0); MEAN PLATELET VOLUME 10.5 fl (7.0-11.0); MONO # 0.4 (0.1-0.6); MONO % 8.8 % (1.0-6.0); RBC 3.61 10^6/uL (3.5-6.1); RED CELL DISTRIBUTION WIDTH 13.5 % (11.5-14.5); WHITE BLOOD COUNT 4.7 10^3/uL (4.5-11.0)
--- NOTE | 2018-01-29 07:24 | CP.PCM.PN ---
Subjective - Date & Time of Evaluation Date of Evaluation: 01/29/18 Time of Evaluation: 06:25 - Subjective Subjective: Awake, alert, confuse, pulled IV this morning Reason for consultation and follow up: Cardiac evaluation of epigastric pain radiating to chest, admitted for alcohol intoxication Seen and examined by me and Dr. Mg Objective - Vital Signs/Intake and Output Vital Signs (last 24 hours): Temp Pulse Resp BP Pulse Ox 98.2 F 98 H 20 134/88 96 01/29/18 06:00 01/29/18 06:00 01/29/18 06:00 01/29/18 06:00 01/29/18 06:00 Intake and Output: 01/29/18 01/29/18 06:59 18:59 Intake Total 420 Output Total 3150 Balance -2730 - Medications Medications: Current Medications Chlordiazepoxide (Librium) 25 mg PO QID [facility]; Protocol Last Admin: 01/28/18 23:00 Dose: 25 mg Lorazepam (Ativan) 2 mg IVP Q6H PRN; Protocol PRN Reason: withdrawal Last Admin: 01/28/18 23:33 Dose: 2 mg Lorazepam (Ativan) 1 mg IVP Q4H PRN; Protocol PRN Reason: Anxiety Last Admin: 01/28/18 14:37 Dose: 1 mg Magnesium Oxide (Mag-Ox) 400 mg PO BID [facility] Last Admin: 01/28/18 17:32 Dose: 400 mg Multivitamins/Minerals (Therapeutic-M Tab) 1 tab PO 0800 [facility] Last Admin: 01/28/18 08:01 Dose: 1 tab Ondansetron HCl (Zofran Inj) 4 mg IVP Q4H PRN PRN Reason: Nausea/Vomiting Last Admin: 01/28/18 08:36 Dose: 4 mg Pantoprazole Sodium (Protonix Ec Tab) 40 mg PO ACB [facility] Last Admin: 01/28/18 08:02 Dose: 40 mg Spironolactone (Aldactone) 25 mg PO DAILY [facility] Last Admin: 01/28/18 09:27 Dose: 25 mg Sucralfate (Carafate Oral Susp) 1 gm PO 0630,1130,1630,2200 [facility] Last Admin: 01/29/18 06:00 Dose: 1 gm Vitamin B Complex/Vit C/Folic Acid (Nephro-Tasneem) 1 tab PO 0800 [facility] Last Admin: 01/28/18 08:01 Dose: 1 tab Zolpidem Tartrate (Ambien) 5 mg PO HS PRN; Protocol PRN Reason: Insomnia Last Admin: 01/29/18 00:31 Dose: 5 mg - Labs Labs: 01/29/18 06:00 01/29/18 06:00 PT 11.4 SECONDS (9.4-12.5) 01/28/18 05:45 INR 0.99 01/28/18 05:45 - Constitutional Appears: Non-toxic, No Acute Distress - Head Exam Head Exam: NORMAL INSPECTION, NORMOCEPHALIC - Eye Exam Eye Exam: Normal appearance Pupil Exam: NORMAL ACCOMODATION - ENT Exam ENT Exam: Mucous Membranes Moist, Normal Exam - Respiratory Exam Respiratory Exam: Decreased Breath Sounds, NORMAL BREATHING PATTERN - Cardiovascular Exam Cardiovascular Exam: +S1, +S2 - GI/Abdominal Exam GI & Abdominal Exam: Soft, Normal Bowel Sounds - Exam Additional comments: collier catheter - Neurological Exam Neurological Exam: Alert, Awake Additional comments: disoriented - Psychiatric Exam Psychiatric exam: Normal Affect, Normal Mood - Skin Skin Exam: Dry, Normal Color, Warm Assessment and Plan - Assessment and Plan (Free Text) Assessment: A 72 year old female who came in to the ER due to epigastric pain radiating to chest. History of hypertension, gastritis, alcohol abuse,tobacco abuse,hypertension, hyperlipidemia, diabetes, obesity and depression. Admitted for alcohol intoxication and epigastric pain. Troponin level negative x 2. Rule out myocardial infarction.Echo to evaluate LV function. Out patient Stress test. Plan: For ECHO today to evaluate LV function Troponin level normal No signs of myocardial infarction Will discontinue telemetry TSH normal Alcohol withdrawal precaution (CIWA 1-2) Continue IV hydration GI on consult for epigastric pain Psych on consult Will restart Lopressor Continue current treatment Continue current medications Will follow up Out patient Stress test Further recommendation during hospital course Plan and treatment discussed with Dr. Mg
[2018-01-29] MEDS: Multivitamin Vitamin B Complex (Nephro-Vite) Tab PO SCH (08:53)
[2018-01-29] MEDS: Pantoprazole 40 mg EC Tab PO SCH (08:53)
[2018-01-29] MEDS: Magnesium Oxide 400 mg Tab UD PO SCH ×2 (09:04→18:22)
[2018-01-29] MEDS: Multivitamin With Minerals Tab PO SCH (09:04)
[2018-01-29] MEDS ORDERED: Potassium Chloride 20 mEq ER Tab PO ONE (09:30)
--- NOTE | 2018-01-29 10:42 | CP.PCM.PN ---
<Smitha Bates - Last Filed: 01/29/18 10:39> Subjective - Date & Time of Evaluation Date of Evaluation: 01/29/18 Time of Evaluation: 10:39 - Subjective Subjective: Gastroenterology Fellow/PGY6 Progress Note Patient notes resolved epigastric pain. Admits to lower back pain. Tolerating diet. Notes no bowel movement yesterday. A 12-point review of systems negative except for as above. Objective - Vital Signs/Intake and Output Vital Signs (last 24 hours): Temp Pulse Resp BP Pulse Ox 98.2 F 98 H 20 134/88 96 01/29/18 06:00 01/29/18 06:00 01/29/18 06:00 01/29/18 06:00 01/29/18 06:00 Intake and Output: 01/29/18 01/29/18 06:59 18:59 Intake Total 420 Output Total 3150 Balance -2730 - Medications Medications: Current Medications Chlordiazepoxide (Librium) 25 mg PO QID [facility]; Protocol Last Admin: 01/29/18 09:04 Dose: 25 mg Lorazepam (Ativan) 2 mg IVP Q6H PRN; Protocol PRN Reason: withdrawal Last Admin: 01/28/18 23:33 Dose: 2 mg Lorazepam (Ativan) 1 mg IVP Q4H PRN; Protocol PRN Reason: Anxiety Last Admin: 01/28/18 14:37 Dose: 1 mg Magnesium Oxide (Mag-Ox) 400 mg PO BID [facility] Last Admin: 01/29/18 09:04 Dose: 400 mg Metoprolol Tartrate (Lopressor) 25 mg PO BRKDIN [facility] Multivitamins/Minerals (Therapeutic-M Tab) 1 tab PO 0800 [facility] Last Admin: 01/29/18 09:04 Dose: 1 tab Ondansetron HCl (Zofran Inj) 4 mg IVP Q4H PRN PRN Reason: Nausea/Vomiting Last Admin: 01/28/18 08:36 Dose: 4 mg Pantoprazole Sodium (Protonix Ec Tab) 40 mg PO ACB [facility] Last Admin: 01/29/18 08:53 Dose: 40 mg Quetiapine Fumarate (Seroquel) 25 mg PO [facility]; Protocol Spironolactone (Aldactone) 25 mg PO DAILY [facility] Last Admin: 01/29/18 09:03 Dose: 25 mg Sucralfate (Carafate Oral Susp) 1 gm PO 0630,1130,1630,2200 [facility] Last Admin: 01/29/18 06:00 Dose: 1 gm Vitamin B Complex/Vit C/Folic Acid (Nephro-Tasneem) 1 tab PO 0800 [facility] Last Admin: 01/29/18 08:53 Dose: 1 tab Zolpidem Tartrate (Ambien) 5 mg PO HS PRN; Protocol PRN Reason: Insomnia Last Admin: 01/29/18 00:31 Dose: 5 mg - Labs Labs: 01/29/18 06:00 01/29/18 06:00 PT 11.4 SECONDS (9.4-12.5) 01/28/18 05:45 INR 0.99 01/28/18 05:45 - Constitutional Appears: Non-toxic, No Acute Distress - Head Exam Head Exam: ATRAUMATIC, NORMOCEPHALIC - Eye Exam Eye Exam: EOMI, PERRL. absent: Scleral icterus Pupil Exam: PERRL. absent: Miosis, Mydriatic - ENT Exam ENT Exam: Mucous Membranes Moist, Normal Oropharynx - Neck Exam Neck Exam: Full ROM, Normal Inspection - Respiratory Exam Respiratory Exam: Clear to Ausculation Bilateral. absent: Rales, Rhonchi, Wheezes - Cardiovascular Exam Cardiovascular Exam: RRR, +S1, +S2. absent: Gallop, Rubs - GI/Abdominal Exam GI & Abdominal Exam: Soft, Tenderness, Normal Bowel Sounds. absent: Distended, Firm, Guarding, Rigid, Organomegaly, Rebound - Extremities Exam Extremities Exam: Normal Inspection, Pedal Edema - Neurological Exam Neurological Exam: Alert, Awake - Psychiatric Exam Psychiatric exam: Normal Affect, Normal Mood - Skin Skin Exam: Dry, Intact, Normal Color, Warm Assessment and Plan - Assessment and Plan (Free Text) Assessment: 72 year old female with PMH of chronic elevated transaminases due to active alcohol abuse, Obesity, and Depression presenting with abdominal pain. Active treatment of epigastric pain likely secondary to alcohol abuse, elevated transaminases 2/2 alcohol abuse and alcohol withdrawal. CT A/P IV contrast showed mild bilateral hydronephrosis with bladder distension and hepatic steatosis. EGD 05/2017 showed gastritis and duodenitis without biopsies due to thrombocytopenia. No prior colonoscopy. Plan: -continue PPI and carafate -on CIWA protocol -LFTs improving -tolerating diet -counselled on alcohol cessation -start Miralax daily -thank you for opportunity to participate in the care of this patient <Fransisco Frank V - Last Filed: 01/29/18 19:03> Objective - Vital Signs/Intake and Output Vital Signs (last 24 hours): Temp Pulse Resp BP Pulse Ox 98.1 F 98 H 19 135/93 H 96 01/29/18 17:47 01/29/18 18:26 01/29/18 17:47 01/29/18 18:26 01/29/18 06:00 - Medications Medications: Current Medications Chlordiazepoxide (Librium) 25 mg PO QID [facility]; Protocol Last Admin: 01/29/18 18:22 Dose: 25 mg Lorazepam (Ativan) 2 mg IVP Q6H PRN; Protocol PRN Reason: withdrawal Last Admin: 01/29/18 15:31 Dose: 2 mg Lorazepam (Ativan) 1 mg IVP Q4H PRN; Protocol PRN Reason: Anxiety Last Admin: 01/28/18 14:37 Dose: 1 mg Magnesium Oxide (Mag-Ox) 400 mg PO BID [facility] Last Admin: 01/29/18 18:22 Dose: 400 mg Metoprolol Tartrate (Lopressor) 25 mg PO BRKDIN [facility] Last Admin: 01/29/18 18:26 Dose: 25 mg Multivitamins/Minerals (Therapeutic-M Tab) 1 tab PO 0800 [facility] Last Admin: 01/29/18 09:04 Dose: 1 tab Ondansetron HCl (Zofran Inj) 4 mg IVP Q4H PRN PRN Reason: Nausea/Vomiting Last Admin: 01/28/18 08:36 Dose: 4 mg Pantoprazole Sodium (Protonix Ec Tab) 40 mg PO ACB [facility] Last Admin: 01/29/18 08:53 Dose: 40 mg Quetiapine Fumarate (Seroquel) 25 mg PO AMHS [facility]; Protocol Spironolactone (Aldactone) 25 mg PO DAILY [facility] Last Admin: 01/29/18 09:03 Dose: 25 mg Sucralfate (Carafate Oral Susp) 1 gm PO 0630,1130,1630,2200 [facility] Last Admin: 01/29/18 18:22 Dose: 1 gm Vitamin B Complex/Vit C/Folic Acid (Nephro-Tasneem) 1 tab PO 0800 [facility] Last Admin: 01/29/18 08:53 Dose: 1 tab Zolpidem Tartrate (Ambien) 5 mg PO HS PRN; Protocol PRN Reason: Insomnia Last Admin: 01/29/18 00:31 Dose: 5 mg - Labs Labs: 01/29/18 06:00 01/29/18 06:00 PT 11.4 SECONDS (9.4-12.5) 01/28/18 05:45 INR 0.99 01/28/18 05:45 Attending/Attestation - Attestation I have personally seen and examined this patient.: Yes I have fully participated in the care of the patient.: Yes I have reviewed all pertinent clinical information, including history, physical exam and plan: Yes Notes (Text): This is an addendum to GI progress report dictated by the GI Fellow.The patient was seen and examined earlier. Medical records, lab studies, imagings were reviewed. Last 24 hours events reviewed. Agreed with the above treatment plan as outlined in GI Fellow 's notes with the addition of the following Tolerating diet History of active EtOH abuse LFTs show downward trend Patient would benefit from elective colonoscopy Advised the patient to avoid alcohol Previous EGD findings noted Miralax PRN for constipation 01/29/18 19:02
--- NOTE | 2018-01-29 10:52 | PN ---
DATE: 01/29/2018 FOLLOWUP NOTE SUBJECTIVE: In short, the patient is a 72-year-old female, who was admitted on the medical site for alcohol withdrawal syndrome. The patient was seen initially yesterday over the weekend. The patient had nausea and vomiting and was not able to hold the interview because of the symptoms. The patient presented to be anxious as well as has episodes of confusion and trying to climb off the bed as per nursing report overnight. The patient was seen today. The patient presented to be anxious, restless. The patient appears to be unhappy. The patient reported that like noises as well as light are bothering her very much, so the patient requested to be in quiet room. The patient was educated that there is no option to have quiet room as of now because she is in the hospital. The patient reported that she is seeing people and reports that she feels very anxious. Stat dose of Seroquel was offered to the patient. This ad copy writer educated the patient about risks, benefits and alternatives of that medication. The patient verbalized understanding. The patient reported that she feels unhappy and depressed because her left her for another woman. The patient denied any thoughts of harming herself and protective factor "I want to be there for my son, I do not want to ." The patient's vital signs seems to be stable, but the patient has episodes of tachycardia at the morning time. The patient had pulse is 103, blood pressure 146/92. Medications reviewed. The patient is on Librium 25 mg four times a day schedule, Ativan 2 mg IV push every 6 hours p.r.n. for withdrawals, magnesium oxide, Lopressor, multivitamin, Zofran, Protonix. This ad copy writer will give stat dose of Seroquel and initiate 25 mg twice a day. The patient is on sucralfate, Ambien 5 mg at the nighttime and also vitamin B complex. Labs reviewed, most recent was from today. Chemistry reviewed. AST and ALT within normal limits. Sodium is better. Potassium 3.5, which is low. Urinalysis reviewed. Toxicology reviewed. MENTAL STATUS EXAMINATION: The patient presented to be alert. The patient knows that she is in the hospital and knows the date. The patient reported her mood is depressed and unhappy. Affect was constricted and irritable. Mood congruent. Thought process seems to be coherent and goal directed. Thought content, the patient reported that she has visual hallucinations. The patient denied thoughts of harming herself or others. Denied intents or plan. Insight and judgment seems to be limited, but improving. Impulses are unpredictable. IMPRESSION: The patient has alcohol withdrawal syndrome, which is improving with hallucinations. The patient has either adjustment disorder or major depressive disorder, alcohol use disorder, rule out substance-induced mood disorder. PLAN: Seroquel was started. The patient is on Librium 25 mg four times a day and Ativan as needed. Monitor vital signs. The patient expressed her interest to go to inpatient rehab for alcohol addiction. I will give referral to the [place] [facility]. The patient is Lib[place] speaking, this ad copy writer utilized Crista narvaez for translation because voice translation system was not active. Meanwhile, continue current management. Continue current medication. Should you have any questions, give me a call back. Thank you very much for letting me participate in the care of your patient. Naltrexone should be discussed with the patient. Should you have any questions, give me a call back. Pam Mathews MD
--- NOTE | 2018-01-29 10:55 | PN ---
DATE: 01/29/2018 REASON FOR CONSULTATION AND FOLLOWUP: Cardiac evaluation, admitted with epigastric pain. This note is an addition to dictated by the nurse practitioner. So far troponin remains negative, no evidence of acute WA, history of heavy alcohol abuse, admitting blood alcohol level around 400, history of tobacco abuse and complaining of back pain. RECOMMENDATION: We will discontinue telemetry, supplement potassium, potassium is low. We will get echo to assess LV function for risk stratification and suggest stress test as an outpatient. Thank you Dr. Huitron for providing us the opportunity in taking care of the patient, Quin Sam. Lise Mg MD
--- NOTE | 2018-01-29 16:33 | PCM.URO ---
Urology Progress Note - Objective Lab Studies: Reviewed (gu dx: retention gu plans : pt now voiding well will follow along) Lab Results Last 24 Hours: Laboratory Results - last 24 hr 01/28/18 01/29/18 01/29/18 18:57 06:00 06:00 WBC 4.7 RBC 3.61 Hgb 11.1 L Hct 33.7 L MCV 93.4 MCH 30.7 MCHC 32.9 RDW 13.5 Plt Count 104 L MPV 10.5 Gran % 65.7 Lymph % (Auto) 22.5 [place] % (Auto) 8.8 H Eos % (Auto) 2.8 Baso % (Auto) 0.2 Gran # 3.07 Lymph # (Auto) 1.1 L [place] # (Auto) 0.4 Eos # (Auto) 0.1 Baso # (Auto) 0.01 Sodium 135 Potassium 3.5 L Chloride 98 Carbon Dioxide 32 Anion Gap 8 L BUN 5 L Creatinine 0.5 L Est GFR ( Amer) > 60 Est GFR (Non-Af Amer) > 60 Random Glucose 109 Calcium 8.7 Magnesium 2.0 Total Bilirubin 0.5 AST 63 H D ALT 40 Alkaline Phosphatase 117 Lactate Dehydrogenase 447 Total Creatine Kinase 71 Troponin I < 0.01 D Total Protein 6.2 Albumin 3.2 Globulin 3.0 Albumin/Globulin Ratio 1.1 Intake & Output: Intake & Output 01/28/18 01/29/18 01/29/18 18:59 06:59 18:59 Intake Total 420 Output Total 3150 Balance -2730 Weight 165 lb 6.4 oz Intake: Oral 420 Output: Urine 3150 Urine, Voided 3150 Vital Signs: Vital Signs - 24 hr 01/28/18 01/28/18 01/29/18 18:00 22:00 00:01 Temperature 98.4 F 97.7 F Pulse Rate 99 H 86 93 H Respiratory 21 22 Rate Blood Pressure 158/98 H 146/92 H O2 Sat by Pulse 97 Oximetry 01/29/18 01/29/18 01/29/18 02:00 06:00 12:00 Temperature 98.2 F 97.1 F L Pulse Rate 95 H 98 H 96 H Respiratory 20 20 Rate Blood Pressure 134/88 142/81 O2 Sat by Pulse 96 Oximetry
--- NOTE | 2018-01-29 20:26 | CARD ---
APPROVED REPORT Date of service: 01/29/2018 EXAM: Two-dimensional and M-mode echocardiogram with Doppler and color Doppler. INDICATION Chest Pain 2D DIMENSIONS Left Atrium (2D)5.2 (1.6-4.0cm)IVSd0.9 (0.7-1.1cm) LVDd4.2 (3.9-5.9cm)PWd0.9 (0.7-1.1cm) LVDs3.0 (2.5-4.0cm)FS (%) 28.8 % LVEF (%)55.9 (>50%) M-Mode DIMENSIONS Aortic Root3.10 (2.2-3.7cm)Aortic Cusp Exc.1.50 (1.5-2.0cm) Aortic Valve AoV Peak Ikcwfpwu409.0cm/sAoV VTI47.1cmAO Peak GR.21mmHg AO Mean GR.12mmHg Mitral Valve MV E Hvcjceej027.0cm/sMV A Dorqgygi591.0cm/sE/A ratio1.1 TDI Lateral E' Peak V8.68cm/sMedial E' Peak V4.97cm/sE/Lateral E'13.9 E/Medial E'24.3 Pulmonary Valve PV Peak Ziobtlua65.1cm/sPV Peak Grad.3mmHg Tricuspid Valve TR Peak Ozydokjf518vb/sRAP ASPETHNN93xkFgIK Peak Gr.49mmHg [id number] LEFT VENTRICLE The left ventricle is normal size. There is normal left ventricular wall thickness. The left ventricular function is normal.EF-55% There is normal LV segmental wall motion. Transmitral Doppler flow pattern is Grade II-pseudonormal filling dynamics. No left ventricle thrombus noted on this study. There is no ventricular septal defect visualized. There is no left ventricular aneurysm. There is no mass noted in the left ventricle. RIGHT VENTRICLE The right ventricle is mildly dilated. There is normal right ventricular wall thickness. Systolic function of RV is mildly reduced. ATRIA The left atrium is mildly dilated. The right atrium size is normal. The interatrial septum is intact with no evidence for an atrial septal defect. AORTIC VALVE The aortic valve is thickened but opens well. There is trace to mild aortic regurgitation. There is no aortic valvular stenosis. There is no aortic valvular vegetation. MITRAL VALVE The mitral valve is thickened but opens well. Mitral annular calcification is mild to moderate. Mitral regurgitation is moderate. There is no mitral valve stenosis. There is no evidence of mitral valve prolapse. TRICUSPID VALVE The tricuspid valve leaflets are thickened , but open well. There is moderate tricuspid regurgitation. multiple jets. RVSP-59 mm of Hg. There is no tricuspid valve stenosis. There is no tricuspid valve prolapse or vegetation. PULMONIC VALVE The pulmonary valve is normal in structure. There is no pulmonic valvular regurgitation. There is no pulmonic valvular stenosis. GREAT VESSELS The aortic root is normal in size. The ascending aorta is normal in size. The pulmonary artery is normal. The IVC is normal in size and collapses >50% with inspiration. PERICARDIAL EFFUSION There is no pleural effusion. There is no pericardial effusion. <Conclusion> The left ventricle is normal size. There is normal left ventricular wall thickness. The left ventricular function is normal.EF-55% The right ventricle is mildly dilated. Systolic function of RV is mildly reduced. There is trace to mild aortic regurgitation. Mitral regurgitation is moderate. There is moderate tricuspid regurgitation. multiple jets. RVSP-59 mm of Hg. The IVC is normal in size and collapses >50% with inspiration. There is no pericardial effusion.
--- NOTE | 2018-01-30 02:29 | PN ---
DATE: 01/29/2018 SUBJECTIVE: The patient was seen and examined on the bedside, 01/29/2018. These progress notes are for 01/29/2018 and looking comfortable. No more epigastric pain. No fever. No chills. No nausea, vomiting, diarrhea. Tolerating food very well. No headache. No dizziness. No hematuria or hematochezia. PHYSICAL EXAMINATION: VITAL SIGNS: Temperature 98.2, pulse 98, respirations 20, blood pressure 134/88, pulse oximetry 96. HEENT: Head; normocephalic and atraumatic. Eyes; PERRLA. Extraocular muscles intact. Conjunctivae clear. Nose patent. Mucous membrane moist. NECK: Supple. No carotid bruit. No JVD or thyromegaly. CHEST: Bilaterally symmetrical. HEART: S1 and S2 positive. LUNGS: Clear to auscultation. ABDOMEN: Soft. Bowel sounds present. No organomegaly. EXTREMITIES: No edema. No cyanosis. NEUROLOGIC: The patient is awake and alert, moving all four extremities. No focal deficits. MEDICATIONS: Librium, Ativan, magnesium oxide, Lopressor, Zofran, Protonix, Seroquel, Aldactone, Carafate, vitamins, and Ambien. LABORATORY DATA: White blood cells 4.7, hemoglobin 11.1, hematocrit 33.7, platelets 104. Sodium 137, potassium 3.5, BUN 5, creatinine 0.7, and glucose 109. ASSESSMENT: Ms. Quin Sam, 72 years old lady with anemia, thrombocytopenia, hypokalemia, has chronic elevated transaminases due to active alcohol abuse, obesity, depression, came with abdominal pain, epigastric pain looks like secondary to alcohol abuse, same thing looks like elevated transaminases. CT is reviewed by me shows bilateral mild hydronephrosis with bladder distention and hepatic steatosis. Esophagogastroduodenoscopy done 05/2017 showed gastritis and duodenitis without biopsies due to thrombocytopenia. PLAN: Continue PPI. Continue for alcohol cessation. Start MiraLax. Patient will benefit from elective colonoscopy as far as GI, seen by Dr. Herve Burns, urologist for nephrolithiasis and urinary retention. Dr. Pam Mathews due to depression and alcohol abuse. Patient got Librium, we will taper down that. According to psychiatrist, the patient has adjustment disorders or major depressive disorder, alcohol use disorder, rule out substance induced mood disorder. Seroquel started. GI and DVT prophylaxes. We will cut down on the Librium and Ativan. Repeat labs. We will follow up. Belkys Huitron MD
[2018-01-30] MEDS: Sucralfate 1 gm/10 ml Oral Susp UD PO SCH ×4 (05:33→20:59)
--- NOTE | 2018-01-30 06:51 | CP.PCM.PN ---
Subjective - Date & Time of Evaluation Date of Evaluation: 01/30/18 Time of Evaluation: 06:15 - Subjective Subjective: Awake, alert, no distress Reason for consultation and follow up: Cardiac evaluation of epigastric pain radiating to chest, admitted for alcohol intoxication Seen and examined by me and Dr. Mg Objective - Vital Signs/Intake and Output Vital Signs (last 24 hours): Temp Pulse Resp BP Pulse Ox 98 F 85 18 137/94 H 98 01/30/18 00:01 01/30/18 00:01 01/30/18 00:01 01/30/18 00:01 01/30/18 00:01 Intake and Output: 01/29/18 01/30/18 18:59 06:59 Intake Total 940 Output Total 1200 Balance -260 - Medications Medications: Current Medications Chlordiazepoxide (Librium) 10 mg PO TID [facility]; Protocol Lorazepam (Ativan) 1 mg IVP Q4H PRN; Protocol PRN Reason: Anxiety Last Admin: 01/30/18 01:33 Dose: 1 mg Lorazepam (Ativan) 1 mg IVP Q8H PRN; Protocol PRN Reason: withdrawal Magnesium Oxide (Mag-Ox) 400 mg PO BID [facility] Last Admin: 01/29/18 18:22 Dose: 400 mg Metoprolol Tartrate (Lopressor) 25 mg PO BRKDIN [facility] Last Admin: 01/29/18 18:26 Dose: 25 mg Multivitamins/Minerals (Therapeutic-M Tab) 1 tab PO 0800 [facility] Last Admin: 01/29/18 09:04 Dose: 1 tab Ondansetron HCl (Zofran Inj) 4 mg IVP Q4H PRN PRN Reason: Nausea/Vomiting Last Admin: 01/28/18 08:36 Dose: 4 mg Pantoprazole Sodium (Protonix Ec Tab) 40 mg PO ACB [facility] Last Admin: 01/29/18 08:53 Dose: 40 mg Quetiapine Fumarate (Seroquel) 25 mg PO AMHS [facility]; Protocol Last Admin: 01/29/18 21:45 Dose: 25 mg Spironolactone (Aldactone) 25 mg PO DAILY [facility] Last Admin: 01/29/18 09:03 Dose: 25 mg Sucralfate (Carafate Oral Susp) 1 gm PO 0630,1130,1630,2200 [facility] Last Admin: 01/30/18 05:33 Dose: Not Given Vitamin B Complex/Vit C/Folic Acid (Nephro-Tasneem) 1 tab PO 0800 [facility] Last Admin: 01/29/18 08:53 Dose: 1 tab Zolpidem Tartrate (Ambien) 5 mg PO HS PRN; Protocol PRN Reason: Insomnia Last Admin: 01/29/18 23:21 Dose: 5 mg - Labs Labs: 01/29/18 06:00 01/29/18 06:00 PT 11.4 SECONDS (9.4-12.5) 01/28/18 05:45 INR 0.99 01/28/18 05:45 - Constitutional Appears: Non-toxic, No Acute Distress - Head Exam Head Exam: NORMAL INSPECTION, NORMOCEPHALIC - Eye Exam Eye Exam: Normal appearance Pupil Exam: NORMAL ACCOMODATION - ENT Exam ENT Exam: Mucous Membranes Moist - Respiratory Exam Respiratory Exam: Clear to Ausculation Bilateral, NORMAL BREATHING PATTERN - Cardiovascular Exam Cardiovascular Exam: +S1, +S2 Additional comments: no JVD - GI/Abdominal Exam GI & Abdominal Exam: Soft, Normal Bowel Sounds - Extremities Exam Extremities Exam: Full ROM - Neurological Exam Neurological Exam: Alert, Awake - Psychiatric Exam Psychiatric exam: Normal Affect, Normal Mood - Skin Skin Exam: Dry, Normal Color, Warm Assessment and Plan - Assessment and Plan (Free Text) Assessment: A 72 year old female who came in to the ER due to epigastric pain radiating to chest. History of hypertension, gastritis, alcohol abuse,tobacco abuse,hypertension, hyperlipidemia, diabetes, obesity and depression. Admitted for alcohol intoxication and epigastric pain. Troponin level negative x 2. Rule out myocardial infarction. Out patient Stress test.Echo done.Stable cardiac status. Plan: Echo done- LV size normal, LVEF 55% Mildly dilated RV, Mildly reduced systolic function Mild aortic regurgitation, Moderate mitral regurgitation/tricuspid regurgitation, RVSP 59mmHg No pericardial effusion Stable cardiac status Heart rate controlled Blood pressure controlled Alcohol withdrawal precaution Continue IV hydration GI on consult for epigastric pain Psych on consult Urology on consult and work up in progress Continue current treatment Continue current medications Will follow up Out patient Stress test Plan and treatment discussed with Dr. Mg
[2018-01-30] MEDS: Multivitamin With Minerals Tab PO SCH (08:02)
[2018-01-30] MEDS: Pantoprazole 40 mg EC Tab PO SCH (08:02)
--- NOTE | 2018-01-30 11:11 | CP.PCM.PN ---
Subjective - Date & Time of Evaluation Date of Evaluation: 01/30/18 Time of Evaluation: 10:14 - Subjective Subjective: Gastroenterology Fellow/PGY6 Progress Note Patient denies pain. Tolerating diet. Notes no bowel movement yesterday. A 12- point review of systems negative except for as above. Objective - Vital Signs/Intake and Output Vital Signs (last 24 hours): Temp Pulse Resp BP Pulse Ox 97.9 F 83 20 123/83 97 01/30/18 06:00 01/30/18 08:03 01/30/18 06:00 01/30/18 08:03 01/30/18 06:00 Intake and Output: 01/30/18 01/30/18 06:59 18:59 Intake Total 940 Output Total 1200 Balance -260 - Medications Medications: Current Medications Chlordiazepoxide (Librium) 10 mg PO TID [facility]; Protocol Lorazepam (Ativan) 1 mg IVP Q4H PRN; Protocol PRN Reason: Anxiety Last Admin: 01/30/18 01:33 Dose: 1 mg Lorazepam (Ativan) 1 mg IVP Q8H PRN; Protocol PRN Reason: withdrawal Magnesium Oxide (Mag-Ox) 400 mg PO BID [facility] Last Admin: 01/29/18 18:22 Dose: 400 mg Metoprolol Tartrate (Lopressor) 25 mg PO BRKDIN [facility] Last Admin: 01/30/18 08:03 Dose: 25 mg Multivitamins/Minerals (Therapeutic-M Tab) 1 tab PO 0800 [facility] Last Admin: 01/30/18 08:02 Dose: 1 tab Ondansetron HCl (Zofran Inj) 4 mg IVP Q4H PRN PRN Reason: Nausea/Vomiting Last Admin: 01/28/18 08:36 Dose: 4 mg Pantoprazole Sodium (Protonix Ec Tab) 40 mg PO ACB [facility] Last Admin: 01/30/18 08:02 Dose: 40 mg Polyethylene Glycol (Miralax) 17 gm PO DAILY [facility] Quetiapine Fumarate (Seroquel) 25 mg PO AMHS [facility]; Protocol Last Admin: 01/29/18 21:45 Dose: 25 mg Spironolactone (Aldactone) 25 mg PO DAILY [facility] Last Admin: 01/29/18 09:03 Dose: 25 mg Sucralfate (Carafate Oral Susp) 1 gm PO 0630,1130,1630,2200 [facility] Last Admin: 01/30/18 05:33 Dose: Not Given Vitamin B Complex/Vit C/Folic Acid (Nephro-Tasneem) 1 tab PO 0800 [facility] Last Admin: 01/29/18 08:53 Dose: 1 tab Zolpidem Tartrate (Ambien) 5 mg PO HS PRN; Protocol PRN Reason: Insomnia Last Admin: 01/29/18 23:21 Dose: 5 mg - Labs Labs: 01/29/18 06:00 01/29/18 06:00 PT 11.4 SECONDS (9.4-12.5) 01/28/18 05:45 INR 0.99 01/28/18 05:45 - Constitutional Appears: Non-toxic, No Acute Distress - Head Exam Head Exam: ATRAUMATIC, NORMOCEPHALIC - Eye Exam Eye Exam: EOMI, PERRL. absent: Scleral icterus Pupil Exam: PERRL. absent: Miosis, Mydriatic - ENT Exam ENT Exam: Mucous Membranes Moist, Normal Exam - Neck Exam Neck Exam: Full ROM, Normal Inspection - Respiratory Exam Respiratory Exam: Clear to Ausculation Bilateral. absent: Rales, Rhonchi, Wheezes - Cardiovascular Exam Cardiovascular Exam: RRR, +S1, +S2. absent: Gallop, Rubs - GI/Abdominal Exam GI & Abdominal Exam: Soft, Normal Bowel Sounds. absent: Distended, Firm, Guarding, Rigid, Tenderness - Extremities Exam Extremities Exam: Normal Inspection, Pedal Edema - Neurological Exam Neurological Exam: Alert, Awake - Psychiatric Exam Psychiatric exam: Normal Affect, Normal Mood - Skin Skin Exam: Dry, Intact, Normal Color, Warm Assessment and Plan - Assessment and Plan (Free Text) Assessment: 72 year old female with PMH of chronic elevated transaminases due to active alcohol abuse, Obesity, and Depression presenting with abdominal pain. Active treatment of epigastric pain secondary to alcohol abuse, elevated transaminases 2/2 alcohol abuse and alcohol withdrawal. CT A/P IV contrast showed mild bilateral hydronephrosis with bladder distension and hepatic steatosis. EGD 2017 showed gastritis and duodenitis without biopsies due to thrombocytopenia. No prior colonoscopy. Plan: -continue PPI and carafate -on [facility] protocol -LFTs improving -tolerating diet -counselled on alcohol cessation -continue Miralax daily -recommend outpatient follow up for elective colonoscopy for colorectal cancer screening
[2018-01-30] MEDS: Magnesium Oxide 400 mg Tab UD PO SCH ×2 (11:14→18:04)
[2018-01-30] MEDS: POLYETHYLENE GLYCOL 3350 17 GM/Dose PACKET PO SCH (11:15)
[2018-01-30 12:59] LABS: BASO # 0.01 K/mm3 (0.0-2.0); BASO % 0.2 % (0.0-3.0); EOS # 0.3 (0.0-0.7); GRAN # 3.57 (1.4-6.5); GRAN % 65.6 % (50.0-68.0); HEMOGLOBIN 11.3 g/dL (12.0-16.0); LYMPH # 1.1 (1.2-3.4); LYMPH % 19.3 % (22.0-35.0); MEAN CELL VOLUME 94.8 fl (80.0-105.0); MEAN CORPUSCULAR HEMOGLOBIN 31.2 pg (25.0-35.0); MEAN CORPUSCULAR HGB CONC 32.9 g/dl (31.0-37.0); MEAN PLATELET VOLUME 10.3 fl (7.0-11.0); MONO # 0.5 (0.1-0.6); MONO % 9.9 % (1.0-6.0); RBC 3.62 10^6/uL (3.5-6.1); RED CELL DISTRIBUTION WIDTH 13.7 % (11.5-14.5); WHITE BLOOD COUNT 5.4 10^3/uL (4.5-11.0)
[2018-01-30 13:12] LABS: ALB/GLOB RATIO 1.1 (1.1-1.8); ALBUMIN 3.1 g/dL (3.0-4.8); ALT/SGPT 42 U/L (7-56); AST/SGOT 64 U/L (14-36); BLOOD UREA NITROGEN 15 mg/dL (7-21); CALCIUM 9.2 mg/dL (8.4-10.5); GFR NON-AFRICAN AMERICAN > 60
--- NOTE | 2018-01-30 14:04 | PN ---
DATE: 01/30/2018 FOLLOWUP NOTE SUBJECTIVE: In short, the patient is 72-year-old female who was admitted on the medical site for alcohol withdrawal syndrome. The patient was seen and examined by this clinical writer. Seroquel was started and the patient is on benzodiazepines for alcohol withdrawal symptoms. This clinical writer implemented Seroquel for periods of agitation, confusion and hallucinations. The patient was followed up today. The patient presented deeply sedated, but considering the fact that the patient was not able to sleep for the past 3 nights, it could be therapeutic. Of note, the patient was very stressed out because the patient's left her for another woman and she was feeling depressed. The patient denied any thoughts of killing herself during this visit. Denied any thoughts of harming others. The patient was open for inpatient rehab. As per Social Service notes, the patient was evaluated by Physical Therapy and recommended subacute rehab versus Transitional Care Unit. Collaterals from the nursing staff, overnight the patient was trying to climb off the bed. Yesterday, at the evening time, the patient was not following command. At times, the patient attempt to remove IV line. Vital signs reviewed today. Temperature 97.7, pulse is 83, blood pressure 123/83, respirations 20, oxygen saturation is 97. Medications reviewed. The patient is on Librium 10 mg three times a day, Ativan 1 mg IV push every 4 hours p.r.n. for anxiety and 1 mg every 8 hours p.r.n. for withdrawals, magnesium oxide 400 mg twice a day scheduled. The patient is on Lopressor, multivitamin, Zofran, Protonix, MiraLax, Seroquel 25 mg at the morning time and at the nighttime, Aldactone 25 mg daily, sucralfate, Ambien 5 mg at the nighttime as needed for insomnia. The patient got Ambien yesterday. Labs were reviewed from today. Hemoglobin and hematocrit 11.3 and 34.3. Coagulation reviewed. Chemistry reviewed. Urine reviewed. Toxicology 358 was at the time of admission. MENTAL STATUS EXAMINATION: The patient was deeply sleeping, but has periods of confusion, agitation, trying to climb off the bed. Yesterday, the patient reported being depressed over the fact that her left her for another woman, but denied any thoughts of harming herself or others. Insight and judgment seems to be limited. Impulses are unpredictable. IMPRESSION: Most likely, the patient is in delirium stage of because of alcohol withdrawals. The patient has history of alcohol use disorder, rule out adjustment disorder, rule out depression. PLAN: Continue current management. Continue current medications. Monitor vital signs. Agree with Transitional Care Unit or subacute rehab. We will follow up every other day on this patient and advise accordingly. Thank you very much for letting me participate in the care of your patient. Should you have any questions, give me a call back. Pam Mathews MD
[2018-01-30] MEDS: Multivitamin Vitamin B Complex (Nephro-Vite) Tab PO SCH (18:11)
--- NOTE | 2018-01-30 19:35 | CARD ---
APPROVED REPORT Date of service: 01/30/2018 EKG Measurement Heart [id number] <Conclusion> Sinus rhythm with premature atrial complexes Otherwise normal ECG
--- NOTE | 2018-01-31 00:16 | PN ---
DATE: 01/30/2018 SUBJECTIVE: The patient was seen and examined on the bedside on 01/30/2018, looking comfortable. No nausea, vomiting, diarrhea. No hematuria or hematochezia. No swelling of the legs. No chest pain. No palpitation. No headache. No dizziness. Tolerating diet. No fever. No chills. PHYSICAL EXAMINATION VITAL SIGNS: Temperature 97.9, pulse 53, respiratory rate 20, blood pressure 123/83, pulse oximetry 97. HEENT: Head normocephalic, atraumatic. Eyes PERRLA. Extraocular muscles intact. Conjunctivae clear. Nose patent. Mucous membrane moist. NECK: Supple. No carotid bruit. No JVD or thyromegaly. CHEST: Bilaterally symmetrical. HEART: S1 and S2 positive. LUNGS: Clear to auscultation. ABDOMEN: Soft. Bowel sounds positive. No organomegaly. EXTREMITIES: No edema. No cyanosis. NEUROLOGICAL: The patient is awake and alert. Moving all 4 extremities. No focal deficits. MEDICATIONS: Librium, Ativan, metoprolol, Zofran, Protonix, MiraLax, Aldactone, Carafate. LABORATORY DATA: White blood cells 4.7, hemoglobin 11.1, hematocrit 33.7, platelets 104. Sodium 135, potassium 3.5, BUN 5, creatinine 0.5, glucose 109. ASSESSMENT AND PLAN: Ms. Quin Sam, 72-year-old female with anemia, thrombocytopenia, hypokalemia, has chronic elevated transaminases due to active alcohol abuse, obesity, depression, epigastric pain secondary to alcohol abuse, bilateral hydronephrosis with bladder distention and hepatic steatosis. The patient has gastritis, duodenitis. Continue PPI and Carafate. Ethanol abuse. Getting tapering dose of Librium. Continue MiraLax. Seen by Dr. Pam Mathews, psychiatrist and feed mixer. Ordered chest x-ray and EKG. Repeat labs. We will follow up. Belkys Huitron MD
[2018-01-31] MEDS: Sucralfate 1 gm/10 ml Oral Susp UD PO SCH ×4 (05:54→21:46)
--- NOTE | 2018-01-31 07:47 | CP.PCM.PN ---
Subjective - Date & Time of Evaluation Date of Evaluation: 01/31/18 Time of Evaluation: 06:50 - Subjective Subjective: Awake, alert, no distress, lying in bed Reason for consultation and follow up: Cardiac evaluation of epigastric pain radiating to chest, admitted for alcohol intoxication Seen and examined by me and Dr. Mg Objective - Vital Signs/Intake and Output Vital Signs (last 24 hours): Temp Pulse Resp BP Pulse Ox 97.4 F L 88 20 150/108 H 98 01/30/18 22:00 01/30/18 22:00 01/30/18 22:00 01/30/18 22:00 01/30/18 22:00 Intake and Output: 01/31/18 01/31/18 06:59 18:59 Intake Total 720 Balance 720 - Medications Medications: Current Medications Lorazepam (Ativan) 1 mg IVP Q4H PRN; Protocol PRN Reason: Anxiety Last Admin: 01/30/18 20:54 Dose: 1 mg Lorazepam (Ativan) 1 mg IVP Q8H PRN; Protocol PRN Reason: withdrawal Magnesium Oxide (Mag-Ox) 400 mg PO BID [facility] Last Admin: 01/30/18 18:04 Dose: 400 mg Metoprolol Tartrate (Lopressor) 25 mg PO BRKDIN [facility] Last Admin: 01/30/18 18:07 Dose: 25 mg Multivitamins/Minerals (Therapeutic-M Tab) 1 tab PO 0800 [facility] Last Admin: 01/30/18 08:02 Dose: 1 tab Pantoprazole Sodium (Protonix Ec Tab) 40 mg PO ACB [facility] Last Admin: 01/30/18 08:02 Dose: 40 mg Polyethylene Glycol (Miralax) 17 gm PO DAILY [facility] Last Admin: 01/30/18 11:15 Dose: 17 gm Quetiapine Fumarate (Seroquel) 25 mg PO AMHS [facility]; Protocol Last Admin: 01/30/18 20:59 Dose: 25 mg Spironolactone (Aldactone) 25 mg PO DAILY [facility] Last Admin: 01/30/18 14:14 Dose: 25 mg Sucralfate (Carafate Oral Susp) 1 gm PO 0630,1130,1630,2200 [facility] Last Admin: 01/31/18 05:54 Dose: 1 gm Vitamin B Complex/Vit C/Folic Acid (Nephro-Tasneem) 1 tab PO 0800 [facility] Last Admin: 01/30/18 18:11 Dose: 1 tab Zolpidem Tartrate (Ambien) 5 mg PO HS PRN; Protocol PRN Reason: Insomnia Last Admin: 01/30/18 20:57 Dose: 5 mg - Labs Labs: 01/30/18 12:30 01/30/18 12:30 PT 11.4 SECONDS (9.4-12.5) 01/28/18 05:45 INR 0.99 01/28/18 05:45 - Constitutional Appears: Non-toxic, No Acute Distress - Head Exam Head Exam: NORMAL INSPECTION, NORMOCEPHALIC - Eye Exam Eye Exam: Normal appearance Pupil Exam: NORMAL ACCOMODATION - ENT Exam ENT Exam: Mucous Membranes Moist, Normal Exam - Respiratory Exam Respiratory Exam: Decreased Breath Sounds, Clear to Ausculation Bilateral, NORMAL BREATHING PATTERN - Cardiovascular Exam Cardiovascular Exam: +S1, +S2 Additional comments: No JVD - GI/Abdominal Exam GI & Abdominal Exam: Soft, Normal Bowel Sounds - Extremities Exam Extremities Exam: Full ROM, Normal Capillary Refill - Neurological Exam Neurological Exam: Alert, Awake, Oriented x3 - Psychiatric Exam Psychiatric exam: Normal Affect, Normal Mood - Skin Skin Exam: Dry, Normal Color, Warm Assessment and Plan - Assessment and Plan (Free Text) Assessment: A 72 year old female who came in to the ER due to epigastric pain radiating to chest. History of hypertension, gastritis, alcohol abuse,tobacco abuse ,hypertension, hyperlipidemia, diabetes, obesity and depression. Admitted for alcohol intoxication and epigastric pain. Troponin level negative x 2. Rule out myocardial infarction. Out patient Stress test.Echo done.Echo done- LV size normal, LVEF 55%, Mildly dilated RV, Mildly reduced systolic function,Mild aortic regurgitation, Moderate mitral regurgitation/tricuspid regurgitation, RVSP 59mmHg, No pericardial effusion. Stable cardiac status. GI and work up in progress. Plan: No distress, denies chest pain Stable cardiac status Heart rate controlled Blood pressure controlled Alcohol withdrawal precaution On Lopressor 25 mg BID,Aldactone 25 mg daily, Magnesium oxide 400 mg BID Continue current treatment Continue current medications Will follow up Out patient Stress test Cardiac status stable, will sign off, thank you for the opportunity of taking care of Ms. Sam Plan and treatment discussed with Dr. Mg
--- NOTE | 2018-01-31 08:23 | PN ---
DATE: 01/30/2018 LOCATION: The patient in room 561, bed 1. This note is in addition to our nurse practitioner dictated this morning. SUBJECTIVE: We are seeing the patient for evaluation of epigastric pain radiating to the chest. The patient has known hypertension, gastritis, alcohol abuse, tobacco abuse, hyperlipidemia, diabetes, obesity, depression. The patient is now sitting in bed and complaining back pain, but denies any chest pain, shortness of breath, or palpitation. PLAN: The patient already had echo, which showed normal ejection fraction of 55%, mildly dilated RV, mildly reduced RV systolic function, mild aortic regurgitation, moderate mitral regurgitation, moderate tricuspid regurgitation, RVSP 59 mmHg. We will continue present therapy. In the meantime, the patient had echocardiogram yesterday, which showed normal size LV, normal LV valve thickness, normal LV systolic function, EF 55%, right ventricle mildly dilated, systolic function RV is mildly reduced, [id number] aortic regurgitation, mitral regurgitation is moderate, moderate tricuspid regurgitation, RVSP 59 mmHg. We will continue present therapy and we will continue to follow closely with you. Lise Mary MD
--- NOTE | 2018-01-31 09:02 | RAD ---
Date of service: 01/30/2018 HISTORY: Chest pain COMPARISON: 05/13/2017. TECHNIQUE: Chest PA and lateral FINDINGS: LINES AND TUBES: None. LUNG AND PLEURA: The lungs are well inflated and clear. No pleural effusion or pneumothorax. HEART AND MEDIASTINUM: The heart is not enlarged. No aortic atherosclerotic calcification present. The hilar and mediastinal contours are within normal limits. SKELETAL STRUCTURES: The bony structures are within normal limits for the patient's age. VISUALIZED UPPER ABDOMEN: Normal. OTHER FINDINGS: None. IMPRESSION: No active pulmonary disease.
[2018-01-31] MEDS: Multivitamin Vitamin B Complex (Nephro-Vite) Tab PO SCH (12:03)
[2018-01-31] MEDS: Magnesium Oxide 400 mg Tab UD PO SCH ×2 (12:03→18:24)
[2018-01-31] MEDS: Pantoprazole 40 mg EC Tab PO SCH (12:03)
[2018-01-31] MEDS: Multivitamin With Minerals Tab PO SCH (12:03)
[2018-01-31] MEDS: POLYETHYLENE GLYCOL 3350 17 GM/Dose PACKET PO SCH (12:05)
--- NOTE | 2018-01-31 14:19 | CP.PCM.PN ---
<Smitha Bates - Last Filed: 01/31/18 14:16> Subjective - Date & Time of Evaluation Date of Evaluation: 01/31/18 Time of Evaluation: 14:17 - Subjective Subjective: Gastroenterology Fellow/PGY6 Progress Note Patient denies abdominal pain. Tolerating diet. Notes no bowel movement yesterday. A 12-point review of systems negative except for as above. Objective - Vital Signs/Intake and Output Vital Signs (last 24 hours): Temp Pulse Resp BP Pulse Ox 98.3 F 77 18 108/70 95 01/31/18 06:00 01/31/18 06:00 01/31/18 06:00 01/31/18 06:00 01/31/18 06:00 Intake and Output: 01/31/18 01/31/18 06:59 18:59 Intake Total 720 Balance 720 - Medications Medications: Current Medications Lorazepam (Ativan) 1 mg IVP Q4H PRN; Protocol PRN Reason: Anxiety Last Admin: 01/31/18 12:04 Dose: 1 mg Lorazepam (Ativan) 1 mg IVP Q8H PRN; Protocol PRN Reason: withdrawal Magnesium Oxide (Mag-Ox) 400 mg PO BID [facility] Last Admin: 01/31/18 12:03 Dose: 400 mg Metoprolol Tartrate (Lopressor) 25 mg PO BRKDIN [facility] Last Admin: 01/31/18 12:03 Dose: 25 mg Multivitamins/Minerals (Therapeutic-M Tab) 1 tab PO 0800 [facility] Last Admin: 01/31/18 12:03 Dose: 1 tab Pantoprazole Sodium (Protonix Ec Tab) 40 mg PO ACB [facility] Last Admin: 01/31/18 12:03 Dose: 40 mg Polyethylene Glycol (Miralax) 17 gm PO DAILY [facility] Last Admin: 01/31/18 12:05 Dose: 17 gm Quetiapine Fumarate (Seroquel) 25 mg PO AMHS [facility]; Protocol Last Admin: 01/31/18 12:04 Dose: 25 mg Spironolactone (Aldactone) 25 mg PO DAILY [facility] Last Admin: 01/31/18 12:03 Dose: 25 mg Sucralfate (Carafate Oral Susp) 1 gm PO 0630,1130,1630,2200 [facility] Last Admin: 01/31/18 12:05 Dose: 1 gm Vitamin B Complex/Vit C/Folic Acid (Nephro-Tasneem) 1 tab PO 0800 [facility] Last Admin: 01/31/18 12:03 Dose: 1 tab Zolpidem Tartrate (Ambien) 5 mg PO HS PRN; Protocol PRN Reason: Insomnia Last Admin: 01/30/18 20:57 Dose: 5 mg - Labs Labs: 01/30/18 12:30 01/30/18 12:30 PT 11.4 SECONDS (9.4-12.5) 01/28/18 05:45 INR 0.99 01/28/18 05:45 - Constitutional Appears: Non-toxic, No Acute Distress - Head Exam Head Exam: ATRAUMATIC, NORMOCEPHALIC - Eye Exam Eye Exam: EOMI, PERRL. absent: Scleral icterus Pupil Exam: PERRL. absent: Miosis, Mydriatic - ENT Exam ENT Exam: Mucous Membranes Moist, Normal Oropharynx - Neck Exam Neck Exam: Full ROM, Normal Inspection - Respiratory Exam Respiratory Exam: Clear to Ausculation Bilateral. absent: Rales, Rhonchi, Wheezes - Cardiovascular Exam Cardiovascular Exam: RRR, +S1, +S2. absent: Gallop, Rubs - GI/Abdominal Exam GI & Abdominal Exam: Soft, Normal Bowel Sounds. absent: Distended, Firm, Guarding, Rigid, Tenderness, Organomegaly, Rebound - Neurological Exam Neurological Exam: Alert, Awake - Psychiatric Exam Psychiatric exam: Normal Affect, Normal Mood - Skin Skin Exam: Dry, Intact, Normal Color, Warm Assessment and Plan - Assessment and Plan (Free Text) Assessment: 72 year old female with PMH of chronic elevated transaminases due to active alcohol abuse, Obesity, and Depression presenting with abdominal pain. Active treatment of epigastric pain secondary to alcohol abuse, elevated transaminases 2/2 alcohol abuse and alcohol withdrawal. CT A/P IV contrast showed mild bilateral hydronephrosis with bladder distension and hepatic steatosis. EGD 05/2017 showed gastritis and duodenitis without biopsies due to thrombocytopenia. No prior colonoscopy. Plan: -LFTs stable -tolerating diet -continue Miralax daily -continue PPI -on [facility] protocol -counselled on alcohol cessation -outpatient follow up for elective colonoscopy for colorectal cancer screening <Fransisco Frank V - Last Filed: 02/01/18 00:05> Objective - Vital Signs/Intake and Output Vital Signs (last 24 hours): Temp Pulse Resp BP Pulse Ox 97.5 F L 79 20 118/75 98 01/31/18 23:08 01/31/18 23:08 01/31/18 23:08 01/31/18 23:08 01/31/18 23:08 - Medications Medications: Current Medications Lorazepam (Ativan) 1 mg IVP Q4H PRN; Protocol PRN Reason: Anxiety Last Admin: 01/31/18 21:46 Dose: 1 mg Lorazepam (Ativan) 1 mg IVP Q8H PRN; Protocol PRN Reason: withdrawal Magnesium Oxide (Mag-Ox) 400 mg PO BID [facility] Last Admin: 01/31/18 18:24 Dose: 400 mg Metoprolol Tartrate (Lopressor) 25 mg PO BRKDIN [facility] Last Admin: 01/31/18 18:24 Dose: 25 mg Multivitamins/Minerals (Therapeutic-M Tab) 1 tab PO 0800 [facility] Last Admin: 01/31/18 12:03 Dose: 1 tab Pantoprazole Sodium (Protonix Ec Tab) 40 mg PO ACB [facility] Last Admin: 01/31/18 12:03 Dose: 40 mg Polyethylene Glycol (Miralax) 17 gm PO DAILY [facility] Last Admin: 01/31/18 12:05 Dose: 17 gm Quetiapine Fumarate (Seroquel) 25 mg PO [facility]; Protocol Last Admin: 01/31/18 21:45 Dose: 25 mg Spironolactone (Aldactone) 25 mg PO DAILY [facility] Last Admin: 01/31/18 12:03 Dose: 25 mg Sucralfate (Carafate Oral Susp) 1 gm PO 0630,1130,1630,2200 [facility] Last Admin: 01/31/18 21:46 Dose: 1 gm Vitamin B Complex/Vit C/Folic Acid (Nephro-Tasneem) 1 tab PO 0800 [facility] Last Admin: 01/31/18 12:03 Dose: 1 tab Zolpidem Tartrate (Ambien) 5 mg PO HS PRN; Protocol PRN Reason: Insomnia Last Admin: 01/31/18 23:44 Dose: 5 mg - Labs Labs: 01/30/18 12:30 01/30/18 12:30 PT 11.4 SECONDS (9.4-12.5) 01/28/18 05:45 INR 0.99 01/28/18 05:45 Attending/Attestation - Attestation I have personally seen and examined this patient.: Yes I have fully participated in the care of the patient.: Yes I have reviewed all pertinent clinical information, including history, physical exam and plan: Yes Notes (Text): This is an addendum to GI progress report dictated by the GI Fellow.The patient was seen and examined earlier. Medical records, lab studies, imagings were reviewed. Last 24 hours events reviewed. Agreed with the above treatment plan as outlined in GI Fellow 's notes with the addition of the following 02/01/18 00:04
--- NOTE | 2018-02-01 04:34 | PN ---
DATE: 01/31/2018 SUBJECTIVE: Patient is a 72-year-old female. Patient was seen and examined at the bedside on 01/31/2018. Looking comfortable, having lunch. Wants to go home. No fever, no chills. No headache, no dizziness. No hematuria, no hematochezia. PHYSICAL EXAMINATION: VITAL SIGNS: Temperature 98.3, pulse 77, respiratory rate 18, blood pressure 108/70, pulse oximetry 95. HEENT: Head normocephalic, atraumatic. Eyes, PERRLA. Extraocular muscles intact. Conjunctivae clear. Nose patent. NECK: Supple. No carotid bruit. No JVD or thyromegaly. CHEST: Bilaterally symmetrical. HEART: S1 and S2 positive. LUNGS: Clear to auscultation. ABDOMEN: Soft. Bowel sounds present. No organomegaly. EXTREMITIES: No edema. No cyanosis. NEUROLOGIC: The patient is awake and alert. Moving all four extremities. No focal deficits. MEDICATIONS: Ativan, magnesium oxide, Lopressor, Protonix, MiraLax, Seroquel, Aldactone, Carafate, Ambien. LABORATORY DATA: White blood cells 5.4, hemoglobin 11.3, hematocrit 34.3, platelets 108. Sodium 133, potassium 4.2, BUN 15, creatinine 0.6, glucose 130. ASSESSMENT AND PLAN: Ms. Quin Sam, 72-year-old lady with anemia, thrombocytopenia, hyperglycemia, chronically elevated transaminases due to active alcohol abuse, obesity, depression, epigastric pain secondary to alcohol abuse. CT reviewed by me. Has bilateral hydronephrosis with bladder distention, and hepatic steatosis. Patient has gastritis, duodenitis due to thrombocytopenia. Liver function tests are stable, tolerating diet. Continue MiraLax, proton pump inhibitor. Concerned for alcohol abuse. Discussion done with the patient with the insurance sales representative. She wants to go home. She lives alone, but is not able to do her activities of daily living. Belkys Huitron MD
[2018-02-01] MEDS: Sucralfate 1 gm/10 ml Oral Susp UD PO SCH ×4 (05:38→21:52)
--- NOTE | 2018-02-01 10:10 | CP.PCM.PN ---
<PauloSmitha - Last Filed: 02/01/18 10:35> Subjective - Date & Time of Evaluation Date of Evaluation: 02/01/18 Time of Evaluation: 10:06 - Subjective Subjective: Gastroenterology Fellow/PGY6 Progress Note Patient resting comfortably. Tolerating diet. Denies bowel movement yesterday. A 12-point review of systems negative except for as above. Objective - Vital Signs/Intake and Output Vital Signs (last 24 hours): Temp Pulse Resp BP Pulse Ox 98 F 73 20 107/73 100 02/01/18 06:00 02/01/18 06:00 02/01/18 06:00 02/01/18 06:00 02/01/18 06:00 - Medications Medications: Current Medications Lorazepam (Ativan) 1 mg IVP Q4H PRN; Protocol PRN Reason: Anxiety Last Admin: 01/31/18 21:46 Dose: 1 mg Lorazepam (Ativan) 1 mg IVP Q8H PRN; Protocol PRN Reason: withdrawal Magnesium Oxide (Mag-Ox) 400 mg PO BID [facility] Last Admin: 01/31/18 18:24 Dose: 400 mg Metoprolol Tartrate (Lopressor) 25 mg PO BRKDIN [facility] Last Admin: 01/31/18 18:24 Dose: 25 mg Multivitamins/Minerals (Therapeutic-M Tab) 1 tab PO 0800 [facility] Last Admin: 01/31/18 12:03 Dose: 1 tab Pantoprazole Sodium (Protonix Ec Tab) 40 mg PO ACB [facility] Last Admin: 01/31/18 12:03 Dose: 40 mg Polyethylene Glycol (Miralax) 17 gm PO DAILY [facility] Last Admin: 01/31/18 12:05 Dose: 17 gm Quetiapine Fumarate (Seroquel) 25 mg PO [facility]; Protocol Last Admin: 01/31/18 21:45 Dose: 25 mg Spironolactone (Aldactone) 25 mg PO DAILY [facility] Last Admin: 01/31/18 12:03 Dose: 25 mg Sucralfate (Carafate Oral Susp) 1 gm PO 0630,1130,1630,2200 [facility] Last Admin: 02/01/18 05:38 Dose: 1 gm Vitamin B Complex/Vit C/Folic Acid (Nephro-Tasneem) 1 tab PO 0800 [facility] Last Admin: 01/31/18 12:03 Dose: 1 tab Zolpidem Tartrate (Ambien) 5 mg PO HS PRN; Protocol PRN Reason: Insomnia Last Admin: 01/31/18 23:44 Dose: 5 mg - Labs Labs: 01/30/18 12:30 01/30/18 12:30 PT 11.4 SECONDS (9.4-12.5) 01/28/18 05:45 INR 0.99 01/28/18 05:45 - Constitutional Appears: Non-toxic, No Acute Distress - Head Exam Head Exam: ATRAUMATIC, NORMOCEPHALIC - Eye Exam Eye Exam: EOMI, PERRL. absent: Scleral icterus Pupil Exam: PERRL. absent: Miosis, Mydriatic - ENT Exam ENT Exam: Mucous Membranes Moist, Normal Oropharynx - Neck Exam Neck Exam: Full ROM, Normal Inspection - Respiratory Exam Respiratory Exam: Clear to Ausculation Bilateral. absent: Rales, Rhonchi, Wheezes - Cardiovascular Exam Cardiovascular Exam: RRR, +S1, +S2. absent: Gallop, Rubs - GI/Abdominal Exam GI & Abdominal Exam: Soft, Normal Bowel Sounds. absent: Distended, Firm, Guarding, Rigid, Tenderness, Organomegaly, Rebound - Extremities Exam Extremities Exam: Normal Inspection. absent: Pedal Edema - Neurological Exam Neurological Exam: Alert, Awake - Psychiatric Exam Psychiatric exam: Normal Affect, Normal Mood - Skin Skin Exam: Dry, Intact, Normal Color, Warm Assessment and Plan - Assessment and Plan (Free Text) Assessment: 72 year old female with PMH of chronic elevated transaminases due to active alcohol abuse, Obesity, and Depression presenting with abdominal pain. Active treatment of alcohol withdrawal, constipation, and resolved epigastric pain. CT A/P IV contrast showed mild bilateral hydronephrosis with bladder distension and hepatic steatosis. EGD 05/2017 showed gastritis and duodenitis without biopsies performed due to thrombocytopenia. No prior colonoscopy. Plan: -increased Miralax to BID -tolerating diet -continue PPI -on [facility] protocol -counselled on alcohol cessation -LFTs stable -outpatient follow up for elective colonoscopy for colorectal cancer screening <Fransisco Frank V - Last Filed: 02/01/18 23:59> Objective - Vital Signs/Intake and Output Vital Signs (last 24 hours): Temp Pulse Resp BP Pulse Ox 97.4 F L 83 20 104/63 96 02/01/18 14:00 02/01/18 14:00 02/01/18 14:00 02/01/18 17:33 02/01/18 14:00 Intake and Output: 02/01/18 02/02/18 18:59 06:59 Intake Total 420 Balance 420 - Medications Medications: Current Medications Lorazepam (Ativan) 1 mg IVP Q4H PRN; Protocol PRN Reason: Anxiety Last Admin: 01/31/18 21:46 Dose: 1 mg Lorazepam (Ativan) 1 mg IVP Q8H PRN; Protocol PRN Reason: withdrawal Magnesium Oxide (Mag-Ox) 400 mg PO BID [facility] Last Admin: 02/01/18 17:33 Dose: 400 mg Metoprolol Tartrate (Lopressor) 25 mg PO BRKDIN [facility] Last Admin: 02/01/18 17:33 Dose: Not Given Multivitamins/Minerals (Therapeutic-M Tab) 1 tab PO 0800 [facility] Last Admin: 02/01/18 11:08 Dose: 1 tab Pantoprazole Sodium (Protonix Ec Tab) 40 mg PO ACB [facility] Last Admin: 02/01/18 11:17 Dose: 40 mg Polyethylene Glycol (Miralax) 17 gm PO BID [facility] Last Admin: 02/01/18 17:33 Dose: 17 gm Quetiapine Fumarate (Seroquel) 25 mg PO HS [facility]; Protocol Last Admin: 02/01/18 21:53 Dose: 25 mg Quetiapine Fumarate (Seroquel) 12.5 mg PO QAM [facility]; Protocol Spironolactone (Aldactone) 25 mg PO DAILY [facility] Last Admin: 02/01/18 11:19 Dose: Not Given Sucralfate (Carafate Oral Susp) 1 gm PO 0630,1130,1630,2200 [facility] Last Admin: 02/01/18 21:52 Dose: 1 gm Vitamin B Complex/Vit C/Folic Acid (Nephro-Tasneem) 1 tab PO 0800 [facility] Last Admin: 02/01/18 11:09 Dose: 1 tab Zolpidem Tartrate (Ambien) 5 mg PO HS PRN; Protocol PRN Reason: Insomnia Last Admin: 02/01/18 21:52 Dose: 5 mg - Labs Labs: 01/30/18 12:30 01/30/18 12:30 PT 11.4 SECONDS (9.4-12.5) 01/28/18 05:45 INR 0.99 01/28/18 05:45 Attending/Attestation - Attestation I have personally seen and examined this patient.: Yes I have fully participated in the care of the patient.: Yes I have reviewed all pertinent clinical information, including history, physical exam and plan: Yes
[2018-02-01] MEDS: Magnesium Oxide 400 mg Tab UD PO SCH ×2 (11:08→17:33)
[2018-02-01] MEDS: Multivitamin With Minerals Tab PO SCH (11:08)
[2018-02-01] MEDS: Multivitamin Vitamin B Complex (Nephro-Vite) Tab PO SCH (11:09)
[2018-02-01] MEDS: Pantoprazole 40 mg EC Tab PO SCH (11:17)
--- NOTE | 2018-02-01 13:47 | PN ---
DATE: 01/31/2018 This note is in addition to dictated by the nurse practitioner. SUBJECTIVE: The patient is still complaining of epigastric pain radiating to the chest, history of alcoholic abuse, admitted with alcoholic intoxication. The patient had an echocardiogram to assess LV function, it showed ejection fraction 55%, RV mildly dilated. Systolic function mildly reduced. [id number] aortic regurgitation. Moderate mitral regurgitation. Moderate tricuspid regurgitation. Right ventricular systolic pressure of 59. No evidence of acute MN. Try to treat conservatively and treat for underlying medical condition and alcoholic intoxication, alcoholic abuse. Suggest to have a stress test done as outpatient in 2 weeks for risk stratification because of multiple risk factors for coronary artery disease. Thank you, Dr. Huitron, for providing us opportunity in taking care of patient, Quin Sam. We will sign off and glad to follow dickson. Lise Mg MD
[2018-02-01] MEDS: POLYETHYLENE GLYCOL 3350 17 GM/Dose PACKET PO SCH (17:33)
--- NOTE | 2018-02-01 19:50 | CON ---
DATE: 02/01/2018 HISTORY OF PRESENT ILLNESS: This is a 72-year-old female who has been admitted to medical side for alcohol withdrawal syndrome. Psychiatrist is following up with her due to periods of agitation, confusion, hallucination as well as depression on the medication floor. I reviewed Dr. Mathews's assessment as well as recent staff notes, as well as interviewed the patient at bedside this morning with the help of speak and translate Bangladeshi interpretation service. The patient is alert and oriented to current location and circumstances and date. The patient appears polite during my questioning and generally answers relevantly and consistently to my questioning. She reports that she is tolerating her current medications and she has improved since the implementation of Seroquel. She reports depression; however, she is not suicidal or hopeless. She definitely wants to live and hope about the future. Her affect is constricted and fatigued and she denies having any hallucinations, does not appear to be responding to internal stimuli. Generally, the patient has been in better control and is more predictable on the medical floor. She is tolerating the current medications and denies any side effects and her insight and judgment are generally improved. Vital signs reviewed as well as labs. MEDICATIONS: Current relevant psychiatric medications include Seroquel 25 mg in the morning and at bedtime and Ambien 5 mg at bedtime p.r.n. IMPRESSION: The patient is still in delirium though the patient symptoms are improving secondary to alcohol withdrawal. Alcohol use disorder, likely adjustment disorder with combined depression and anxiety secondary to her as well as substance induced mood disorder, rule out major depressive disorder. RECOMMENDATIONS: I will continue with current medications; however, I will slowly wean the patient off Seroquel. She does not appear to have notable history of psychosis unless it is associated with alcohol withdrawal. Seroquel will be decreased to 12.5 in the morning and 25 mg at bedtime. Medicine should be tapering patient's benzos on the daily basis. Please note that benzos can help with alcohol withdrawal; however, if they are not tapered that can do the opposite and worsen disorientation and delirium so Medicine must remember to taper medications as her vitals improve and as her withdrawals improve. The patient I know that this time the patient danger to herself or others, has been tolerating the medications. She would definitely benefit from rehab facility and as well as outpatient psychiatric referral for medication management and therapy in consideration of her alcohol use disorder as well as social issues continuing on her. The patient does not have any thoughts of harming her or harming herself or harming apparently her 's mistress. The patient will consult courtney Mark Cabrera MD
--- NOTE | 2018-02-02 02:15 | PN ---
DATE: 02/01/2018 SUBJECTIVE: The patient is a 72-year-old female. The patient was seen and examined at the bedside on 02/01/2018, looking comfortable. No fever. No chills. No nausea, vomiting, diarrhea. No hematuria or hematochezia. No swelling of the legs. No chest pain. No palpitation. No headache. No dizziness. Seen by the psychiatrist also. Our rn social services, Michelle, spoke to the patient's son in [place] about the plan. He do not want mother to go to rehab. He wants to take mom back to [place] and he is arranging somebody at home who can take care of her for couple of days. I have discussion done with Michelle. PHYSICAL EXAMINATION VITAL SIGNS: Temperature 98, pulse 73, respiratory rate 20, blood pressure 107/73, pulse oximetry 100. HEENT: Head: Normocephalic, atraumatic. Eyes: PERRLA. Extraocular muscles are intact. Conjunctivae are clear. Nose patent. NECK: Supple. No carotid bruit. No JVD or thyromegaly. CHEST: Bilaterally symmetrical. HEART: S1 and S2 positive. LUNGS: Clear to auscultation. ABDOMEN: Soft. Bowel sounds positive. No organomegaly. EXTREMITIES: No edema. No cyanosis. NEUROLOGIC: The patient is awake and alert. Moving all 4 extremities. No focal deficits. MEDICATIONS: Ativan, magnesium oxide, metoprolol, multivitamin, pantoprazole, MiraLax, Seroquel, Aldactone, Carafate, B12, Ambien. LABORATORY DATA: White blood cells 5.4, hemoglobin 11.3, hematocrit 34.2, platelets 108,000. Sodium 133, potassium 4.2, BUN 50, creatinine 0.6, glucose 130. ASSESSMENT AND PLAN: Ms. Quin Sam is a 72-year-old lady with anemia, thrombocytopenia, hyperglycemia, history of elevated transaminases due to active alcohol abuse, obesity, depression, abdominal pain, active treatment of alcohol withdrawal, constipation resolved, gastric pain resolved, mild hydronephrosis with bladder distention. Gastrointestinal and deep venous thrombosis prophylaxis. Thrombocytopenia, repeat labs. We will follow up. Discussion done with the rn social services, with the son, and by myself as above. Belkys Hutiron MD
[2018-02-02] MEDS: Sucralfate 1 gm/10 ml Oral Susp UD PO SCH ×4 (05:48→21:05)
[2018-02-02] MEDS: Multivitamin Vitamin B Complex (Nephro-Vite) Tab PO SCH (08:02)
[2018-02-02] MEDS: Pantoprazole 40 mg EC Tab PO SCH (08:02)
[2018-02-02] MEDS: Multivitamin With Minerals Tab PO SCH (08:02)
[2018-02-02] MEDS: Magnesium Oxide 400 mg Tab UD PO SCH ×2 (09:18→18:55)
[2018-02-02] MEDS: POLYETHYLENE GLYCOL 3350 17 GM/Dose PACKET PO SCH ×2 (09:18→18:56)
[2018-02-03] MEDS: Multivitamin Vitamin B Complex (Nephro-Vite) Tab PO SCH (09:21)
[2018-02-03] MEDS: Pantoprazole 40 mg EC Tab PO SCH (09:21)
[2018-02-03] MEDS: Multivitamin With Minerals Tab PO SCH (09:22)
[2018-02-03] MEDS: Magnesium Oxide 400 mg Tab UD PO SCH ×2 (09:23→17:40)
[2018-02-03] MEDS: POLYETHYLENE GLYCOL 3350 17 GM/Dose PACKET PO SCH ×2 (09:23→17:40)
[2018-02-03] MEDS: Sucralfate 1 gm/10 ml Oral Susp UD PO SCH ×4 (13:27→21:21)
--- NOTE | 2018-02-04 01:08 | PN ---
DATE: 02/03/2018 SUBJECTIVE: The patient is a 72-year-old female. The patient was seen in her room. Looking comfortable. No nausea, vomiting, or diarrhea. No hematuria or hematochezia. No swelling of the legs. No chest pain. No palpitation. No headache. No dizziness. PHYSICAL EXAMINATION VITAL SIGNS: Temperature 97.3, pulse 90, respiratory rate 18, blood pressure 120/84, and pulse oximetry 90. HEENT: Head normocephalic, atraumatic. Eyes: PERRLA. Extraocular muscles are intact. Conjunctivae are clear. Nose patent. Mucous membranes moist. NECK: Supple. No carotid bruit. No JVD or thyromegaly. CHEST: Bilaterally symmetrical. HEART: S1 and S2 positive. LUNGS: Clear to auscultation. ABDOMEN: Soft. Bowel sounds positive. No organomegaly. EXTREMITIES: No edema. No cyanosis. NEUROLOGIC: The patient is awake and alert. Moving all 4 extremities. No focal deficits. MEDICATIONS: Aldactone, Ambien, Ativan, Carafate, Lopressor, magnesium oxide, MiraLax, Nephro, Protonix, Seroquel, and multivitamins. LABORATORY DATA: We do not have recent labs today, but I reviewed old labs. ASSESSMENT AND PLAN: Ms. Quin Sam is a 72-year-old lady with history of leukopenia, improved; anemia; history of hypokalemia, improved; hyperglycemia, abnormal liver function test, ketonuria, hematuria, history of ethanol abuse. Seen by the psychiatrist, Dr. Mark Cabrera, history of elevated liver enzymes may be due to active alcohol abuse, obesity, abdominal pain, the patient got treatment for alcohol withdrawal, constipation resolved, gastric pain resolved, mild hydronephrosis with bladder distention. Gastrointestinal and deep venous thrombosis prophylaxis given. We will repeat labs. Discussion done with the social service director today, end of the day. The patient's nurse called me that the patient was very depressed. We will re-consult psych. We will follow up. Belkys Huitron MD
[2018-02-04] MEDS: Sucralfate 1 gm/10 ml Oral Susp UD PO SCH ×4 (06:28→21:03)
[2018-02-04 07:08] LABS: MEAN CELL VOLUME 95.2 fl (80.0-105.0); MEAN CORPUSCULAR HEMOGLOBIN 31.2 pg (25.0-35.0); MEAN CORPUSCULAR HGB CONC 32.7 g/dl (31.0-37.0); MEAN PLATELET VOLUME 9.7 fl (7.0-11.0); RBC 3.53 10^6/uL (3.5-6.1); RED CELL DISTRIBUTION WIDTH 14.1 % (11.5-14.5); WHITE BLOOD COUNT 5.2 10^3/uL (4.5-11.0)
[2018-02-04 07:42] LABS: BLOOD UREA NITROGEN 12 mg/dL (7-21); CALCIUM 9.5 mg/dL (8.4-10.5); GFR NON-AFRICAN AMERICAN > 60
[2018-02-04] MEDS ORDERED: Bupivacaine 0.5% 50 ML IJ ONE (08:13)
--- NOTE | 2018-02-04 08:43 | PN ---
DATE: 02/02/2018 SUBJECTIVE: The patient is a 72-year-old female. The patient is looking comfortable. No nausea, vomiting, diarrhea. No hematuria or hematochezia. No swelling of the legs. No chest pain, no palpitation. Friend was sitting on the bedside. PHYSICAL EXAMINATION VITAL SIGNS: Temperature 97.8, pulse 78, respiratory rate 18, blood pressure 123/87. HEENT: Head normocephalic, atraumatic. Eyes PERRLA. Extraocular muscles intact. Conjunctivae clear. Nose patent. Mucous membranes moist. NECK: Supple. No carotid bruit. No JVD or thyromegaly. CHEST: Bilaterally symmetrical. HEART: S1 and S2 positive. LUNGS: Clear to auscultation. ABDOMEN: Soft. Bowel sounds present. No organomegaly. EXTREMITIES: No edema, no cyanosis. NEUROLOGIC: The patient is awake, alert. Moving all 4 extremities. No focal deficits. LABORATORY DATA: We do not have recent labs today, but we reviewed old labs. MEDICATIONS: Aldactone, Ambien, Ativan, sucralfate, Lopressor, magnesium oxide, MiraLAX, Nephro-Tasneem, Protonix, Seroquel. ASSESSMENT AND PLAN: The patient is a 72-year-old lady with anemia, hyperchloremia, history of hypokalemia improved, hyperglycemia, abnormal liver function tests, trending down, history of ethanol abuse, seen by a psychiatrist, Dr. Mark Cabrera, history of active alcohol abuse, obesity, depression, history of abdominal pain improved, got treatment of her alcohol withdrawal, constipation, mild hydronephrosis with bladder distention, gastroparesis and deep vein thrombosis, thrombocytopenia. Discussion done with social work supervisor, Michelle, who spoke to the patient's son in [place]. Discussion done with the friend also. Repeat labs. Out of bed physical therapy. We will follow. Belkys Huitron MD [facility]
[2018-02-04] MEDS: Magnesium Oxide 400 mg Tab UD PO SCH ×2 (10:05→18:22)
[2018-02-04] MEDS: Multivitamin Vitamin B Complex (Nephro-Vite) Tab PO SCH (10:05)
[2018-02-04] MEDS: Multivitamin With Minerals Tab PO SCH (10:05)
[2018-02-04] MEDS: Pantoprazole 40 mg EC Tab PO SCH (10:06)
[2018-02-04] MEDS: POLYETHYLENE GLYCOL 3350 17 GM/Dose PACKET PO SCH ×2 (10:06→18:22)
--- NOTE | 2018-02-05 01:10 | PN ---
DATE: 02/04/2018 SUBJECTIVE: The patient is a 72-year-old female. The patient was seen and examined on the bedside on 02/04/2018. Looking comfortable. Little bit depressed and anxious as per her roommate. Yesterday, the patient cried constantly 3 hours due to her depression. Lives alone at home. Still want to go home. Psych is on the case. PHYSICAL EXAMINATION: VITAL SIGNS: Temperature 97.5, pulse 84, blood pressure 133/91, and respiratory rate 15. HEENT: Head is normocephalic and atraumatic. Eyes; PERRLA. Extraocular muscles intact. Conjunctivae clear. Nose patent. Mucous membranes moist. NECK: Supple. No carotid bruits. No JVD or thyromegaly. CHEST: Bilaterally symmetrical. HEART: S1 and S2 positive. LUNGS: Clear to auscultation. ABDOMEN: Soft. Bowel sounds present. No organomegaly. EXTREMITIES: No edema. No cyanosis. NEUROLOGIC: The patient is awake and alert. Moving all 4 extremities. No focal deficits. MEDICATIONS: Aldactone, Ambien, Ativan, Carafate, Lopressor, magnesium oxide, Nephro, Protonix, Seroquel, and multivitamins. LABORATORY DATA: White blood cells 5.2, hemoglobin 11, hematocrit 33.6, and platelets 180,000. Sodium 133, potassium 4.1, BUN 12, creatinine 0.6, and glucose 97. ASSESSMENT AND PLAN: Ms. Quin Sam is a 72-year-old lady with anemia, hyperglycemia, abnormal liver function test, alcohol level is high on admission, history of depression, history of ethanol abuse, electrolyte imbalance, and hematuria. The patient is depressed and should be transferred to the psych floor. Mild hydronephrosis with bladder distention. Gastrointestinal and deep venous thrombosis prophylaxes. Length of time discussion done with the patient. Psychiatrist is on the case. We will follow up. Belkys Huitron MD
[2018-02-05] MEDS: Sucralfate 1 gm/10 ml Oral Susp UD PO SCH ×5 (06:42→21:16)
[2018-02-05] MEDS: Multivitamin With Minerals Tab PO SCH (10:32)
[2018-02-05] MEDS: Magnesium Oxide 400 mg Tab UD PO SCH ×2 (10:32→18:18)
[2018-02-05] MEDS: Multivitamin Vitamin B Complex (Nephro-Vite) Tab PO SCH (10:32)
[2018-02-05] MEDS: Pantoprazole 40 mg EC Tab PO SCH (10:32)
[2018-02-05] MEDS: POLYETHYLENE GLYCOL 3350 17 GM/Dose PACKET PO SCH ×2 (10:36→18:19)
[2018-02-05 10:41] LABS: URINE BILIRUBIN NEGATIVE (NEGATIVE); URINE BLOOD LARGE (NEGATIVE); URINE GLUCOSE (UA) NEGATIVE (NEGATIVE); URINE LEUKOCYTE ESTERASE LARGE Leu/uL (NEGATIVE); URINE PROTEIN 100 mg/dL (<30 mg/dL); URINE UROBILINOGEN 0.2 E.U./dL (<1 E.U./dL)
[2018-02-05 10:42] LABS: URINE APPEARANCE TURBID (CLEAR); URINE COLOR YELLOW (YELLOW)
[2018-02-05 11:45] LABS: URINE RBC TNTC /hpf (0-2); URINE WBC TNTC /hpf (0-6)
--- NOTE | 2018-02-05 15:56 | PN ---
DATE: 02/05/2018 FOLLOWUP NOTE SUBJECTIVE: The patient was followed up as paramedical team request. The patient presented to be depressed, anxious. The patient complained burning upon urination and anxiety. The patient also reported that she has some visual hallucinations, but denied any well-formed hallucinations. The patient was offered psychiatric admission, but the patient declined that offer because the patient said that she has 2 dogs at home. The patient does not want to stay in the hospital. The patient denied any thoughts of harming herself or others. Denied intent or plan. Vital signs are stable. Temperature 98.2, pulse is 126/78, respirations 18, oxygen saturation is 100. Medications reviewed. Vistaril was started 25 mg every 8 hours as needed, Ativan 1 mg every 4 hours as needed. The patient also is on magnesium oxide, Lopressor, multivitamins, Protonix, MiraLax, Seroquel will be increased and given at the nighttime. The patient is on Aldactone, sucralfate, vitamin B complex and Ambien 5 mg at the nighttime. Labs reviewed. Most recent was from today. The patient has signs of urinary tract infection. MENTAL STATUS EXAMINATION: The patient appears to be depressed and disheveled of intermittent eye contact. Speech was normal rate, tone, quality and quantity. This gag writer utilized staff for translation. The patient is Latvian speaking. Mood described as depressed and anxious. Affect was tearful, mood congruent. Thought process seems to be coherent and goal directed. Thought content, the patient reported that she has some visual hallucinations, but majority of the time it is at the nighttime, which is consistent with delirium. The patient denied thoughts of harming herself or others. Denied intents or plan. Insight and judgment seems to be improving. Impulses are well controlled. The patient has future-oriented plans, patient wants to go back to her country. IMPRESSION: The patient most likely has mood and anxiety disorder due to general medical condition as well as substance-induced mood disorder, alcohol use disorder, rule out major depressive disorder, rule out adjustment disorder. PLAN: This gag writer offered the patient admission to the psychiatric inpatient unit. The patient declined that offer. Vistaril was recommended. Seroquel is at the nighttime. The patient was advised in case of worsening of the symptoms to come back to the hospital. The patient verbalized understanding. The patient adamantly denied any thoughts of harming herself or others. The patient pointed that she will come back to the hospital if she will feel worse. Besides that, the patient is not in any imminent danger to self or others. This gag writer will follow up on the patient tomorrow if the patient is going to stay here. Meanwhile, the patient pose no imminent danger to self or others, but might benefit from the psychiatric inpatient admission. Pam Mathews MD [facility]
--- NOTE | 2018-02-05 23:13 | CP.PCM.PN ---
Subjective - Date & Time of Evaluation Date of Evaluation: 02/03/18 Time of Evaluation: 17:00 - Subjective Subjective: please depressed tolerating the diet Complains of mild abdominal discomfort Objective - Vital Signs/Intake and Output Vital Signs (last 24 hours): Temp Pulse Resp BP Pulse Ox 97.5 F L 72 16 155/68 H 99 02/03/18 22:00 02/03/18 22:00 02/03/18 22:00 02/03/18 22:00 02/03/18 22:00 Intake and Output: 02/03/18 02/04/18 18:59 06:59 Intake Total 520 Balance 520 - Medications Medications: Current Medications Lorazepam (Ativan) 1 mg IVP Q4H PRN; Protocol PRN Reason: Anxiety Last Admin: 02/03/18 21:35 Dose: 1 mg Lorazepam (Ativan) 1 mg IVP Q8H PRN; Protocol PRN Reason: withdrawal Magnesium Oxide (Mag-Ox) 400 mg PO BID [facility] Last Admin: 02/03/18 17:40 Dose: 400 mg Metoprolol Tartrate (Lopressor) 25 mg PO BRKDIN [facility] Last Admin: 02/03/18 17:40 Dose: 25 mg Multivitamins/Minerals (Therapeutic-M Tab) 1 tab PO 0800 [facility] Last Admin: 02/03/18 09:22 Dose: 1 tab Pantoprazole Sodium (Protonix Ec Tab) 40 mg PO ACB [facility] Last Admin: 02/03/18 09:21 Dose: 40 mg Polyethylene Glycol (Miralax) 17 gm PO BID [facility] Last Admin: 02/03/18 17:40 Dose: 17 gm Quetiapine Fumarate (Seroquel) 25 mg PO HS [facility]; Protocol Last Admin: 02/03/18 21:19 Dose: 25 mg Quetiapine Fumarate (Seroquel) 12.5 mg PO QAM [facility]; Protocol Last Admin: 02/03/18 09:22 Dose: 12.5 mg Spironolactone (Aldactone) 25 mg PO DAILY [facility] Last Admin: 02/03/18 09:22 Dose: 25 mg Sucralfate (Carafate Oral Susp) 1 gm PO 0630,1130,1630,2200 [facility] Last Admin: 02/03/18 21:21 Dose: 1 gm Vitamin B Complex/Vit C/Folic Acid (Nephro-Tasneem) 1 tab PO 0800 [facility] Last Admin: 02/03/18 09:21 Dose: 1 tab Zolpidem Tartrate (Ambien) 5 mg PO HS PRN; Protocol PRN Reason: Insomnia Last Admin: 02/02/18 21:05 Dose: 5 mg - Labs Labs: 01/30/18 12:30 01/30/18 12:30 PT 11.4 SECONDS (9.4-12.5) 01/28/18 05:45 INR 0.99 01/28/18 05:45 - Head Exam Head Exam: ATRAUMATIC, NORMOCEPHALIC - Eye Exam Eye Exam: EOMI, Scleral icterus - ENT Exam ENT Exam: Mucous Membranes Moist - Neck Exam Neck Exam: Full ROM. absent: Lymphadenopathy - Respiratory Exam Respiratory Exam: Clear to Ausculation Bilateral, NORMAL BREATHING PATTERN. absent: Accessory Muscle Use - Cardiovascular Exam Cardiovascular Exam: REGULAR RHYTHM. absent: JVD - GI/Abdominal Exam GI & Abdominal Exam: Soft, Tenderness, Normal Bowel Sounds. absent: Organomegaly Additional comments: mild tenderness present in the epigastric and er quadrant area - Extremities Exam Extremities Exam: Full ROM. absent: Calf Tenderness - Neurological Exam Neurological Exam: Alert, Awake, Oriented x3 - Psychiatric Exam Psychiatric exam: Depressed Assessment and Plan - Assessment and Plan (Free Text) Assessment: this 72-year-old patient with a long history of alcohol abuse was admitted with abdominal pain alcohol level of 350 Rash and was thrombocytopenic and anemic blood count has been slowly improving Previous EGD report wa Patient needs elective GI workup in colonoscopy and EGD I did again talk to her about the importance of staying away from alcohol Psychiatry evaluation noted We discussed with the doctor Dr Huitron
[2018-02-06] MEDS: Sucralfate 1 gm/10 ml Oral Susp UD PO SCH ×4 (06:25→21:53)
[2018-02-06] MEDS ORDERED: cefTRIAXone 1 gm 1 GM/100 ML BAG IVPB ONE (07:37)
--- NOTE | 2018-02-06 08:15 | PN ---
DATE: 02/05/2018 SUBJECTIVE: The patient is a 72-year-old female. The patient was seen and examined at the bedside on 02/05/2018. Looking comfortable. No fever. No chills. No headache. No dizziness. Still a little bit depressed. Seen by the psychiatrist. Denies any plans. PHYSICAL EXAMINATION VITAL SIGNS: Temperature 98.2, pulse 64, blood pressure 120/70, and respiratory rate 18. HEENT: Head is normocephalic and atraumatic. Eyes; PERRLA. Extraocular muscles intact. Conjunctivae clear. Nose patent. Mucous membranes moist. NECK: Supple. No carotid bruits. No JVD or thyromegaly. CHEST: Bilaterally symmetrical. HEART: S1 and S2 positive. LUNGS: Clear to auscultation. ABDOMEN: Soft. Bowel sounds present. No organomegaly. EXTREMITIES: No edema. No cyanosis. NEUROLOGIC: The patient is awake and alert. Moving all four extremities. No focal deficits. MEDICATIONS: Aldactone, Ambien, Ativan, Carafate, Lopressor, magnesium oxide, MiraLAX, Nephro, Protonix, Seroquel, LABORATORY DATA: White blood cells 5.2, hemoglobin 11.0, hematocrit 33.6, and platelets 180. Sodium 133, potassium 4.1, BUN 12, creatinine 0.6, and glucose 97. AST 64. ASSESSMENT AND PLAN: Ms. Quin Sam is a 72-year-old lady with anemia; history of thrombocytopenia, improved slowly; history of hypokalemia, now potassium is better; hyperglycemia; abnormal liver function test; history of depression; history of ethanol abuse. The patient is seen by psychiatrist and town administrator, Dr. Frank. According to gastrointestinal, the patient needs elective gastrointestinal workup, colonoscopy and endoscopy. Gastrointestinal and deep venous thrombosis prophylaxis given. Repeat labs. We will follow up. Belkys Huitron MD [facility]
[2018-02-06] MEDS: Magnesium Oxide 400 mg Tab UD PO SCH ×2 (09:19→17:43)
[2018-02-06] MEDS: Pantoprazole 40 mg EC Tab PO SCH (09:20)
[2018-02-06] MEDS: POLYETHYLENE GLYCOL 3350 17 GM/Dose PACKET PO SCH ×2 (09:21→17:44)
[2018-02-06] MEDS: Multivitamin With Minerals Tab PO SCH (09:24)
[2018-02-06] MEDS: Multivitamin Vitamin B Complex (Nephro-Vite) Tab PO SCH (09:24)
--- NOTE | 2018-02-06 16:25 | PN ---
DATE: 02/06/2018 FOLLOWUP NOTE SUBJECTIVE: The patient was seen today. The patient presented much better to compare with the day before yesterday and yesterday. The patient reported that her mood is improving, but still the patient has episodes of crying. The patient is less anxious. The patient reported that she slept well through the night. The patient reported that she has future plans. She is inviting her son from [place] to come and visit her and most likely she wants to go back [place]. The patient reported that she does not feel hopeless and helpless. The patient reported that she is willing to go for outpatient treatment. The patient was provided with contact information for [facility] program at [place] where it has [place]ander-speaking staff. The patient was appreciative. The patient denied thoughts of harming herself or others. Vital signs are stable. Temperature 98, pulse is 78, blood pressure 122/73, respirations 18, oxygen saturation is 100. Medications reviewed. The patient is on Rocephin for urinary tract infection, Vistaril, Ativan as needed. The patient is on Lopressor, magnesium oxide, Protonix, Seroquel at the nighttime, sucralfate, Ambien 5 mg at the nighttime as well as vitamin B complex. Labs were reviewed. Hemoglobin and hematocrit are 11 and 33.6 and it was on 02/04/2018. MENTAL STATUS EXAMINATION: The patient presented to be alert and oriented, pleasant, cooperative. The patient is [place] speaking and this proposal manager writer utilized nursing staff for translation. Mood described as I feel better. Affect was more reactive, but at times, the patient was tearful. Thought process coherent and goal directed. Thought content, the patient denied visual, auditory or tactile hallucinations. Denied paranoid ideation. The patient denied thoughts of harming herself or others. Denied intent or plan. Insight and judgment seems to be improving. Impulses are well controlled. IMPRESSION: Alcohol use disorder, rule out substance-induced mood disorder, rule out anxiety due to general medical condition and substance-induced anxiety disorder. PLAN: The patient presents much better. This proposal manager writer offered the patient admission to the Psychiatric Inpatient Unit yesterday, but the patient declined that offer. The patient does not want to stay in the hospital any longer. The patient is willing to follow up with outpatient programs. Phone numbers were provided and printout was given to the patient. The patient was appreciative. The patient was advised to follow up with AA meeting, NA meeting, Social Work evaluation. The patient pose no imminent danger to self or others. Should you have any questions, give me a call back. Thank you very much for letting me participate in the care of your patient. This proposal manager writer will sign off. Pam Mathews MD
[2018-02-06 21:34] VITALS: TEMP 98.2; O2SAT 99
--- NOTE | 2018-02-07 03:30 | PN ---
DATE: 02/06/2018 SUBJECTIVE: Patient is a 72-year-old female. Patient was seen and examined at the bedside, 02/06/2018. This progress note is for 02/06/2018. Patient is looking better. No fever. No chills. No nausea, vomiting, diarrhea. No hematuria or hematochezia. No swelling of the legs. No chest pain. No palpitation. PHYSICAL EXAMINATION VITAL SIGNS: Temperature 98, pulse 78, blood pressure 120/73, respiratory rate 18. HEENT: Head: Normocephalic, atraumatic. Eyes: PERRLA. Extraocular muscles are intact. Conjunctivae clear. Nose patent. Mucous membranes moist. NECK: Supple. No carotid bruits. No JVD or thyromegaly. CHEST: Bilaterally symmetrical. HEART: S1 and S2 positive. LUNGS: Clear to auscultation. ABDOMEN: Soft. Bowel sounds present. No organomegaly. EXTREMITIES: No edema. No cyanosis. NEUROLOGICAL: Patient is awake, alert. Moving all 4 extremities. No focal deficit. MEDICATIONS: Aldactone, Ambien, Ativan, Carafate, Lopressor, magnesium oxide, MiraLax, Nephro vitamins, Protonix, Rocephin, Seroquel, Vistaril. LABORATORY DATA: White blood cells 5.2, hemoglobin 11.0, hematocrit 33.6, platelets 180. Sodium 133, potassium 4.1, BUN 12, creatinine 0.6, glucose 97. ASSESSMENT AND PLAN: Ms. Cecy Tsai, 72-year-old lady, with anemia; history of thrombocytopenia, improved; hyperglycemia; abnormal liver function test; proteinuria; ketonuria; hematuria; urinary tract infection; alcohol level of 358; seen by psychiatrist, Dr. Reid Orozco; automotive glass technician, Dr. Fransisco Frank. Alcohol use disorder, rule out substance-induced mood disorder, rule out anxiety, general medical condition, and substance-induced anxiety disorder. Patient is improving slowly. According to her, no homicidal or suicidal ideation, not on one to one, but is under the nurse's observation. Social workers are working for patient's case. Talked to the patient's son in the [place]. Gastrointestinal, deep venous thrombosis prophylaxis. Repeat labs. We will follow up. Belkys Huitron MD
[2018-02-07] MEDS: Multivitamin Vitamin B Complex (Nephro-Vite) Tab PO SCH (07:59)
[2018-02-07] MEDS: Pantoprazole 40 mg EC Tab PO SCH (08:00)
[2018-02-07] MEDS: Multivitamin With Minerals Tab PO SCH (08:00)
[2018-02-07 08:51] VITALS: BP 100/49; PULSE 20; RESP 97
[2018-02-07] MEDS: POLYETHYLENE GLYCOL 3350 17 GM/Dose PACKET PO SCH (09:25)
[2018-02-07] MEDS: Magnesium Oxide 400 mg Tab UD PO SCH (09:28)
[2018-02-07] MEDS ORDERED: cefTRIAXone 1 gm 1 GM/100 ML BAG IVPB SCH (10:00)
[2018-02-07] MEDS: Sucralfate 1 gm/10 ml Oral Susp UD PO SCH (13:09)
== END 2018-02-07 13:07 | disposition home or self-care (01) | DRG 897 ==
LOC: ED 20:39 → ERH 01-27 04:52 → 5RNO 01-27 07:29 → 2RNO 01-27 16:38 → OBSVTOIN 01-27 19:49 → 5RNO 01-29 23:15
PROVIDERS: ADMIT Internal Medicine; ATTEND Internal Medicine
DX: F10.230 Alcohol dependence with withdrawal, uncomplicated (principal); N13.30 Unspecified hydronephrosis; E87.1 Hypo-osmolality and hyponatremia; F10.229 Alcohol dependence with intoxication, unspecified; Y90.8 Blood alcohol level of 240 mg/100 ml or more; K29.20 Alcoholic gastritis without bleeding; K70.9 Alcoholic liver disease, unspecified; I10 Essential (primary) hypertension; F32.9 Major depressive disorder, single episode, unspecified; K76.0 Fatty (change of) liver, not elsewhere classified; N32.89 Other specified disorders of bladder; E87.8 Other disorders of electrolyte and fluid balance, not elsewhere classified; E11.65 Type 2 diabetes mellitus with hyperglycemia; K74.60 Unspecified cirrhosis of liver; D69.6 Thrombocytopenia, unspecified; D64.9 Anemia, unspecified; E87.6 Hypokalemia; K29.80 Duodenitis without bleeding; K59.00 Constipation, unspecified; R00.0 Tachycardia, unspecified; D72.819 Decreased white blood cell count, unspecified; E11.43 Type 2 diabetes mellitus with diabetic autonomic (poly)neuropathy; K31.84 Gastroparesis; H40.9 Unspecified glaucoma; F41.0 Panic disorder [episodic paroxysmal anxiety]; I08.3 Combined rheumatic disorders of mitral, aortic and tricuspid valves; K57.30 Diverticulosis of large intestine without perforation or abscess without bleeding; M81.0 Age-related osteoporosis without current pathological fracture; F06.4 Anxiety disorder due to known physiological condition; F19.94 Other psychoactive substance use, unspecified with psychoactive substance-induced mood disorder; Z87.891 Personal history of nicotine dependence

== ENCOUNTER 2018-03-30 15:59 | Inpatient (IN) | payer MEDICARE, OTHER ==
[2018-03-30 16:30] VITALS: BMI 26.6
[2018-03-30] MEDS ORDERED: Multivitamin (MVI) 10 ML, Thiamine 100 MG, Folic Acid 1 MG in Dextrose 5% In Water 1,00... IV ONE (16:36)
--- NOTE | 2018-03-30 16:48 | ED PDOC ---
Arrival/HPI - General Chief Complaint: Chest Pain Time Seen by Provider: 03/30/18 16:01 Historian: Patient - History of Present Illness Narrative History of Present Illness (Text): 03/30/18 16:45 72 year old female, whose past medical history includes EToH abuse, who presents to the ED complaining of CP x 6 days. Patient states pain is midsternal, constant, and non-radiating. Patient also notes abdominal pain, nausea, and vomiting. Patient states she came to the ED for her pain not for alcohol sensation. Patient denies any fever, chills, back pain, neck pain, sob, diarrhea, dysuria, or any other complaints. Time/Duration: < week (6 days) Symptom Onset: Gradual Symptom Course: Unchanged Activities at Onset: Light Context: Home Past Medical History - Provider Review Nursing Documentation Reviewed: Yes - Infectious Disease Hx of Infectious Diseases: None - Cardiac Hx Hypertension: Yes - Pulmonary Hx Respiratory Disorders: No - Neurological Hx Neurological Disorder: Yes Other/Comment: facial palsy,left facial droop 2014 - HEENT Hx HEENT Disorder: Yes Hx Glaucoma: Yes - Renal Hx Renal Disorder: No - Endocrine/Metabolic Hx Endocrine Disorders: No - Hematological/Oncological Hx Blood Disorders: Yes Hx Cirrhosis: Yes - Integumentary Hx Dermatological Disorder: No - Musculoskeletal/Rheumatological Hx Musculoskeletal Disorders: Yes Hx Back Pain: Yes Hx Falls: Yes Hx Osteoporosis: Yes Hx Unsteady Gait: Yes - Gastrointestinal Hx Gastrointestinal Disorders: Yes Hx Gall Bladder Disease: Yes (cholecystectomy) Hx Liver Failure: Yes (cirrhosis, liver biopsy 2013) Other/Comment: colitis, gastritis,abdominal pain - Genitourinary/Gynecological Hx Genitourinary Disorders: Yes Hx Urinary Tract Infection: Yes - Psychiatric Hx Psychophysiologic Disorder: Yes Hx Anxiety: Yes Hx Depression: Yes Hx Panic Disorder: Yes Hx Substance Use: No Other/Comment: alcohol use, as per patient she drinks 3 bottles of rum daily - Surgical History Hx Cholecystectomy: Yes - Anesthesia Hx Anesthesia Reactions: No Hx Malignant Hyperthermia: No - Suicidal Assessment Feels Threatened In Home Enviroment: No Family/Social History - Physician Review Nursing Documentation Reviewed: Yes Family/Social History: Unknown Family HX Smoking Status: Former Smoker Hx Alcohol Use: Yes Amount per day: 2 Hx Substance Use: No Substance used: ALCOHOL Hx Substance Use Treatment: No Allergies/Home Meds Allergies/Adverse Reactions: Allergies No Known Allergies Allergy (Verified 10/02/17 16:51) Home Medications: Home Meds Medication Instructions Recorded Confirmed RX: Spironolactone [Aldactone] 25 mg PO DAILY 05/13/17 10/02/17 Review of Systems - Physician Review All systems were reviewed & negative as marked: Yes - Review of Systems Constitutional: Normal Eyes: Normal ENT: Normal Respiratory: Normal. absent: SOB, Cough Cardiovascular: Normal, Chest Pain Gastrointestinal: Abdominal Pain, Nausea, Vomiting. absent: Diarrhea Genitourinary Female: Normal. absent: Dysuria, Frequency Musculoskeletal: Normal. absent: Back Pain, Neck Pain Skin: Normal. absent: Rash Neurological: Normal. absent: Headache, Dizziness Endocrine: Normal Hemo/Lymphatic: Normal Psychiatric: Normal Physical Exam Vital Signs Reviewed: Yes Vital Signs Temp Pulse Resp BP Pulse Ox 03/30/18 16:15 98.1 F 116 H 18 140/88 97 Temperature: Afebrile Blood Pressure: Normal Pulse: Tachycardic Respiratory Rate: Normal Appearance: Positive for: Well-Appearing, Non-Toxic, Comfortable, Other (flushed appearance; alcohol on breath) Pain Distress: None Mental Status: Positive for: Alert and Oriented X 3 - Systems Exam Head: Present: Atraumatic, Normocephalic Pupils: Present: PERRL Extroacular Muscles: Present: EOMI Conjunctiva: Present: Normal Mouth: Present: Moist Mucous Membranes Neck: Present: Normal Range of Motion Respiratory/Chest: Present: Clear to Auscultation, Good Air Exchange. No: Respiratory Distress, Accessory Muscle Use Cardiovascular: Present: Regular Rate and Rhythm, Normal S1, S2. No: Murmurs Abdomen: Present: Tenderness. No: Distention, Peritoneal Signs, Rebound, Guarding Back: Present: Normal Inspection Upper Extremity: Present: Normal Inspection. No: Cyanosis, Edema Lower Extremity: Present: Normal Inspection. No: Edema Neurological: Present: GCS=15, CN II-XII Intact, Speech Normal Skin: Present: Warm, Dry, Normal Color. No: Rashes Psychiatric: Present: Alert, Oriented x 3, Normal Insight, Normal Concentration Medical Decision Making ED Course and Treatment: 03/30/18 16:50 Impression: 72 year old female presents to the ED complaining of chest pain x 6 days. Plan: -- CT Abd/Pelvis -- Labs -- CXR -- Dextrose -- Zofran -- Urine Culture -- UA Progress Notes: EKG reviewed, shows: Sinus rhythm at [address]/T wave changes. 03/30/18 17:13 CXR reviewed, shows: No Active Disease Pending CT. Signed out to ED night team. - RAD Interpretation Radiology Orders: 03/30/18 16:36 CHEST PORTABLE [RAD] Stat 03/30/18 16:38 ABD & PELVIS IV CONTRAST ONLY [CT] Stat - Medication Orders Current Medication Orders: Multivitamins/Vitamin C 10 ml/Thiamine HCl 100 mg/ Folic Acid 1 mg/ Dextrose 1,011.2 mls @ 1,000 mls/hr IV .Q1H1M ONE Stop: 03/30/18 17:36 Discontinued Medications Ondansetron HCl (Zofran Inj) 8 mg IVP STAT STA Stop: 03/30/18 16:37 Disposition/Present on Arrival - Present on Arrival Any Indicators Present on Arrival: No History of DVT/PE: No History of Uncontrolled Diabetes: No Urinary Catheter: No History of Decub. Ulcer: No History Surgical Site Infection Following: None - Disposition Have Diagnosis and Disposition been Completed?: No Diagnosis: Abdominal pain, Chest pain Disposition Time: 19:00 Condition: FAIR
--- NOTE | 2018-03-30 17:12 | RAD ---
Date of service: 03/30/2018 HISTORY: cp COMPARISON: 01/30/2018 FINDINGS: LUNGS: No active pulmonary disease. PLEURA: No significant pleural effusion identified, no pneumothorax apparent. CARDIOVASCULAR: No aortic atherosclerotic calcification present. Normal cardiac size. No pulmonary vascular congestion. OSSEOUS STRUCTURES: No significant abnormalities. VISUALIZED UPPER ABDOMEN: Normal. OTHER FINDINGS: None. IMPRESSION: No active disease.
[2018-03-30 17:27] LABS: BASO # 0.03 K/mm3 (0.0-2.0); BASO % 0.8 % (0.0-3.0); EOS % 0.3 % (1.5-5.0); GRAN # 2.3 (1.4-6.5); GRAN % 57.7 % (50.0-68.0); HEMOGLOBIN 12.7 g/dL (12.0-16.0); LYMPH # 1.3 (1.2-3.4); LYMPH % 31.7 % (22.0-35.0); MEAN CELL VOLUME 91.9 fl (80.0-105.0); MEAN CORPUSCULAR HEMOGLOBIN 31.3 pg (25.0-35.0); MEAN PLATELET VOLUME 10.7 fl (7.0-11.0); MONO # 0.4 (0.1-0.6); MONO % 9.5 % (1.0-6.0); RBC 4.06 10^6/uL (3.5-6.1); RED CELL DISTRIBUTION WIDTH 14.1 % (11.5-14.5); URINE BILIRUBIN NEGATIVE (NEGATIVE); URINE BLOOD SMALL (NEGATIVE); URINE GLUCOSE (UA) NEGATIVE (NEGATIVE); URINE LEUKOCYTE ESTERASE NEGATIVE Leu/uL (NEGATIVE); URINE PROTEIN 30 mg/dL (<30 mg/dL); URINE UROBILINOGEN 0.2 E.U./dL (<1 E.U./dL)
[2018-03-30 17:28] LABS: URINE APPEARANCE SLIGHT-CLOUDY (CLEAR); URINE COLOR YELLOW (YELLOW)
[2018-03-30 17:31] LABS: URINE HYALINE CAST 0 - 2 /hpf; URINE RBC 0 - 2 /hpf (0-2); URINE WBC NEGATIVE /hpf (0-6)
[2018-03-30 18:38] LABS: ALB/GLOB RATIO 1.3 (1.1-1.8); ALBUMIN 4.7 g/dL (3.0-4.8); ALT/SGPT 42 U/L (7-56); AST/SGOT 122 U/L (14-36); BLOOD UREA NITROGEN 14 mg/dL (7-21); CALCIUM 9.3 mg/dL (8.4-10.5); GFR NON-AFRICAN AMERICAN > 60
[2018-03-30 18:47] LABS: LIPASE 148 U/L (23-300)
[2018-03-30 19:08] LABS: TROPONIN I < 0.01 ng/mL
--- NOTE | 2018-03-30 19:09 | ED PDOC ---
Physical Exam Vital Signs Temp Pulse Resp BP Pulse Ox 03/30/18 16:15 98.1 F 116 H 18 140/88 97 Temperature: Afebrile Blood Pressure: Normal Pulse: Tachycardic Appearance: Positive for: Well-Appearing, Uncomfortable Mental Status: Positive for: Agitated Medical Decision Making ED Course and Treatment: 03/30/18 19:[address] Newman with patient pending labs, CT a/p and reevaluation. 03/30/18 20:47 Patient noted to be tremulous. Ativan ordered. Pending CT a/p. 03/30/18 22:35 CT a/p reveals no intraabdominal pathology. Patient noted to still be tremulous despite Ativan. CIWA score 11. Last known ingestion of EtOH noted to be 24hours prior to arrival into ED. Shared decision making with who agrees with proposed plan for observation for monitoring of withdrawal symptoms. Discussed case with house staff and front office medical assistant who accepts patient onto hospitalist service. - Lab Interpretations Lab Results: 03/30/18 17:23 03/30/18 18:10 Lab Results 03/30/18 18:10: Sodium 133, Potassium 4.6, Chloride 91 L, Carbon Dioxide 21, Anion Gap 26 H, BUN 14, Creatinine 0.6 L, Est GFR ( Amer) > 60, Est GFR (Non-Af Amer) > 60, Random Glucose 125 H, Calcium 9.3, Phosphorus 3.1, Magnesium 2.1, Total Bilirubin 0.9, AST 122 H D, ALT 42, Alkaline Phosphatase 151 H D, Total Creatine Kinase 152, Troponin I Pending, Total Protein 8.3, Albumin 4.7, Globulin 3.5, Albumin/Globulin Ratio 1.3, Lipase 148 03/30/18 17:23: Urine Color Yellow, Urine Appearance Slight-cloudy, Urine pH 6.0, Ur Specific [place] 1.025, Urine Protein 30 H, Urine Glucose (UA) Negative, Urine Ketones 15 H, Urine Blood Small H, Urine Nitrate Negative, Urine Bilirubin Negative, Urine Urobilinogen 0.2, Ur Leukocyte Esterase Negative, Urine RBC 0 - 2, Urine WBC Negative, Ur Epithelial Cells 1 - 3, Hyaline Casts 0 - 2 03/30/18 17:23: WBC 4.0 L D, RBC 4.06, Hgb 12.7, Hct 37.3, MCV 91.9 D, MCH 31.3, MCHC 34.0, RDW 14.1, Plt Count 145, MPV 10.7, Gran % 57.7, Lymph % (Auto) 31.7, [place] % (Auto) 9.5 H, Eos % (Auto) 0.3 L, Baso % (Auto) 0.8, Gran # 2.30, Lymph # (Auto) 1.3, [place] # (Auto) 0.4, Eos # (Auto) 0.0, Baso # (Auto) 0.03 I have reviewed the lab results: Yes - RAD Interpretation Narrative RAD Interpretations (Text): 03/30/18 22:33 CT ABDOMEN AND PELVIS 1. No acute abdominal or pelvic pathology. 2. Hepatomegaly and fatty liver. 3. Colonic diverticulosis present with no evidence of acute diverticulitis. 4. Fibroid uterus. Radiology Orders: 03/30/18 16:36 CHEST PORTABLE [RAD] Stat 03/30/18 16:38 ABD & PELVIS IV CONTRAST ONLY [CT] Stat Phlebotomy Program Coordinator: Radiologist - Medication Orders Current Medication Orders: Discontinued Medications Multivitamins/Vitamin C 10 ml/Thiamine HCl 100 mg/ Folic Acid 1 mg/ Dextrose 1,011.2 mls @ 1,000 mls/hr IV .Q1H1M ONE Stop: 03/30/18 17:36 Last Admin: 03/30/18 18:34 Dose: 1,000 mls/hr eMAR Start Stop Document 03/30/18 18:34 (Rec: 03/30/18 18:35 [id number] Intravenous Solution Start Date 03/30/18 Start Time 18:34 End Date 03/30/18 End time 19:34 Total Infusion Time 60 Lorazepam (Ativan) 0.5 mg IVP ONCE ONE; Protocol Stop: 03/30/18 18:17 Last Admin: 03/30/18 18:35 Dose: 0.5 mg IVP Administration Document 03/30/18 18:35 (Rec: 03/30/18 18:39 [id number] Charges for Administration # of IVP Administrations 1 Ondansetron HCl (Zofran Inj) 8 mg IVP STAT STA Stop: 03/30/18 16:37 Last Admin: 03/30/18 18:04 Dose: 8 mg IVP Administration Document 03/30/18 18:04 (Rec: 03/30/18 18:05 [id number]) Charges for Administration # of IVP Administrations 1 Disposition/Present on Arrival - Present on Arrival Any Indicators Present on Arrival: No History of DVT/PE: No History of Uncontrolled Diabetes: No Urinary Catheter: No History of Decub. Ulcer: No History Surgical Site Infection Following: None - Disposition Have Diagnosis and Disposition been Completed?: Yes Diagnosis: Abdominal pain, Chest pain, Alcohol abuse Disposition Time: 22:35 Patient Plan: Admission Patient Problems: Current Active Problems Problem Status Onset Abdominal pain Acute Chest pain Acute Condition: FAIR
[2018-03-30] MEDS ORDERED: Iohexol 350 MG/100 ML VIAL ONE (20:06)
[2018-03-30] MEDS ORDERED: Sodium Chloride 0.9% 1,000 ML IV STA (22:05)
[2018-03-30] MEDS ORDERED: Multivitamin Therapeutic Tab PO STA (22:05)
[2018-03-30] MEDS ORDERED: Sodium Chloride 0.9% 1,000 ML IV SCH (23:45)
[2018-03-30 23:55] LABS: INR 0.97; PROTHROMBIN TIME 11.1 SECONDS (9.4-12.5)
--- NOTE | 2018-03-31 02:23 | CP.PCM.HP ---
History of Present Illness - History of Present Illness History of Present Illness: Lonnie Gaming, PGY-1, Internal Medicine History and Physical for Dr. Rodríguez 72 year old somnolent, AAOx2 at bedside, and Citizen Of [place] speaking female with past medical history of hypertension, facial palsy, TIA, glaucoma, cirrhosis, osteopo rosis, colitis, gastritis, UTI, anxiety, depression, panic disorder, and urinary retention presents with 2 week history of drinking 2 pints of vodka daily and one week of loss of appetite after fighting with . Patient has also had numerous falls after having sensation of not being able to walk. Patient reported dizziness, tremors, tinnitus, but no hearing loss. Patient has had a headache for the last 3 days, throat pain for 3 days. Patient also had nausea and vomiting for the past 2 days. Patient has had 10 episodes of vomiting with blood mixed with normal vomit. Patient also reports numerous episodes of watery stool mixed with blood. Patient reports numbness/tingling of fingers/toes. Patient currently denies chest pain, heart palpitations, and shortness of breath. 12-point ROS was unreliable due to patient's somnolence and mental status. As per ED note, patient initially presented to the emergency department with chest pain for 6 days, which was midsternal, constant, and non-radiating. PMH: as stated above PSH: cholecystectomy FMHx: noncontributary SHx: 2 pints of vodka daily. Last drink was the morning of 03/30. Patient used to drink before being diagnosed with cirrhosis at unknown time. Patient has unknown drinking history prior to cirrhosis. Patient reports 30 pack year history and stopped smoking 30 years ago. Patient denies recreational drug use. Allergies: NKDA PMD: Dr. Mercado Present on Admission - Present on Admission Any Indicators Present on Admission: No Review of Systems - Review of Systems Systems not reviewed;Unavailable: Altered Mental Status, Other (somnolent) Past Patient History - Infectious Disease Hx of Infectious Diseases: None - Past Social History Smoking Status: Former Smoker - CARDIAC Hx Hypertension: Yes - PULMONARY Hx Respiratory Disorders: No - NEUROLOGICAL Hx Neurological Disorder: Yes Other/Comment: facial palsy,left facial droop 2014 - HEENT Hx HEENT Problems: Yes Hx Glaucoma: Yes - RENAL Hx Chronic Kidney Disease: No - ENDOCRINE/METABOLIC Hx Endocrine Disorders: No - HEMATOLOGICAL/ONCOLOGICAL Hx Blood Disorders: Yes Hx Cirrhosis: Yes - INTEGUMENTARY Hx Dermatological Problems: No - MUSCULOSKELETAL/RHEUMATOLOGICAL Hx Musculoskeletal Disorders: Yes Hx Back Pain: Yes Hx Falls: Yes Hx Osteoporosis: Yes Hx Unsteady Gait: Yes - GASTROINTESTINAL Hx Gastrointestinal Disorders: Yes Hx Gall Bladder Disease: Yes (cholecystectomy) Hx Liver Failure: Yes (cirrhosis, liver biopsy 2013) Other/Comment: colitis, gastritis,abdominal pain - GENITOURINARY/GYNECOLOGICAL Hx Genitourinary Disorders: Yes Hx Urinary Tract Infection: Yes - PSYCHIATRIC Hx Psychophysiologic Disorder: Yes Hx Anxiety: Yes Hx Depression: Yes Hx Panic Symptoms: Yes Hx Substance Use: No Other/Comment: alcohol use, as per patient she drinks 3 bottles of rum daily - SURGICAL HISTORY Hx Cholecystectomy: Yes - ANESTHESIA Hx Anesthesia Reactions: No Hx Malignant Hyperthermia: No Meds Allergies/Adverse Reactions: Allergies Allergy/AdvReac Type Severity Reaction Status Date / Time No Known Allergies Allergy Verified 10/02/17 16:51 Physical Exam - Constitutional Appears: Well, No Acute Distress, Unkempt - Head Exam Head Exam: ATRAUMATIC, NORMAL INSPECTION, NORMOCEPHALIC - Eye Exam Eye Exam: EOMI, PERRL - ENT Exam ENT Exam: Mucous Membranes Dry - Respiratory Exam Respiratory Exam: Clear to Auscultation Bilateral, NORMAL BREATHING PATTERN - Cardiovascular Exam Cardiovascular Exam: REGULAR RHYTHM, RRR - GI/Abdominal Exam GI & Abdominal Exam: Normal Bowel Sounds, Soft, Tenderness - Extremities Exam Extremities exam: Positive for: full ROM - Neurological Exam Neurological exam: Altered, CN II-XII Intact - Skin Skin Exam: Dry, Intact Results - Vital Signs Recent Vital Signs: Last Vital Signs Temp 98.6 F 03/30/18 22:19 Pulse 115 H 03/30/18 22:19 Resp 16 03/30/18 22:19 BP 131/75 03/30/18 22:19 Pulse Ox 95 03/30/18 22:19 - Labs Result Diagrams: 03/30/18 17:23 03/30/18 18:10 Labs: Laboratory Results - last 24 hr 03/30/18 03/30/18 03/30/18 17:23 17:23 18:10 WBC 4.0 L D RBC 4.06 Hgb 12.7 Hct 37.3 MCV 91.9 D MCH 31.3 MCHC 34.0 RDW 14.1 Plt Count 145 MPV 10.7 Gran % 57.7 Lymph % (Auto) 31.7 [place] % (Auto) 9.5 H Eos % (Auto) 0.3 L Baso % (Auto) 0.8 Gran # 2.30 Lymph # (Auto) 1.3 [place] # (Auto) 0.4 Eos # (Auto) 0.0 Baso # (Auto) 0.03 PT INR APTT Sodium 133 Potassium 4.6 Chloride 91 L Carbon Dioxide 21 Anion Gap 26 H BUN 14 Creatinine 0.6 L Est GFR ( Amer) > 60 Est GFR (Non-Af Amer) > 60 Random Glucose 125 H Calcium 9.3 Phosphorus 3.1 Magnesium 2.1 Total Bilirubin 0.9 AST 122 H D ALT 42 Alkaline Phosphatase 151 H D Total Creatine Kinase 152 Troponin I < 0.01 Total Protein 8.3 Albumin 4.7 Globulin 3.5 Albumin/Globulin Ratio 1.3 Lipase 148 Urine Color Yellow Urine Appearance Slight-cloudy Urine pH 6.0 Ur Specific [place] 1.025 Urine Protein 30 H Urine Glucose (UA) Negative Urine Ketones 15 H Urine Blood Small H Urine Nitrate Negative Urine Bilirubin Negative Urine Urobilinogen 0.2 Ur Leukocyte Esterase Negative Urine RBC 0 - 2 Urine WBC Negative Ur Epithelial Cells 1 - 3 Hyaline Casts 0 - 2 Alcohol, Quantitative 03/30/18 03/30/18 18:10 23:30 WBC RBC Hgb Hct MCV MCH MCHC RDW Plt Count MPV Gran % Lymph % (Auto) [place] % (Auto) Eos % (Auto) Baso % (Auto) Gran # Lymph # (Auto) [place] # (Auto) Eos # (Auto) Baso # (Auto) PT 11.1 INR 0.97 APTT 32.0 Sodium Potassium Chloride Carbon Dioxide Anion Gap BUN Creatinine Est GFR ( Amer) Est GFR (Non-Af Amer) Random Glucose Calcium Phosphorus Magnesium Total Bilirubin AST ALT Alkaline Phosphatase Total Creatine Kinase Troponin I Total Protein Albumin Globulin Albumin/Globulin Ratio Lipase Urine Color Urine Appearance Urine pH Ur Specific [place] Urine Protein Urine Glucose (UA) Urine Ketones Urine Blood Urine Nitrate Urine Bilirubin Urine Urobilinogen Ur Leukocyte Esterase Urine RBC Urine WBC Ur Epithelial Cells Hyaline Casts Alcohol, Quantitative 201 H Assessment & Plan - Assessment and Plan (Free Text) Assessment: 72 year old somnolent, AAOx2 at bedside, and Citizen Of [place] speaking female with past medical history of hypertension, facial palsy, TIA, glaucoma, cirrhosis, osteoporosis, colitis, gastritis, UTI, anxiety, depression, panic disorder, and urinary retention presents with 2 week history of drinking 2 pints of vodka daily and one week of loss of appetite after fighting with . Plan: Alcohol withdrawal -Serum alcohol: 201 -Last drink was morning of 03/30 -Withdrawal likely cause of tachycardia -Patient's CIWA in the ED was 11. -Patient started on CIWA protocol Q4 -Banana bag given in ER -Patient given 7.5 mg ativan in the ER -Ativan 1 mg Q4 and 2 mg Q6PRN for symptoms of withdrawal. Avoid librium and valium due to cirrhosis -Zofran 4 mg Q6PRN -Multivitamin, thiamine, and folate starting tomorrow -Follow up urine drug screen -Alcohol cessation counseling given Atypical Chest Pain 2/2 to Alcohol Withdrawal vs. Costochondritis, Doubt ACS -EKG: Sinus tachycardia at 110 bpm -Troponinx1: negative. -2 more troponins ordered to rule out ACS -7.5 mg of ativan relieved chest pain as per ED physician. -Patient started on CIWA protocol and continued on 1 mg Q4 and 2 mg Q6PRN for symptoms of withdrawal. Avoid librium and valium due to cirrhosis -Aspirin 81 daily, Metoprolol Tartrate 25 mg daily, Spironolactone 25 mg daily -Toradol 30 mg Q6PRN for pain Abdominal Pain 2/2 to Alcohol Withdrawal. Rule out pancreatitis, diverticulitis -Abdominal CT: no acute abdominal or pelvic pathology. hepatomegaly and fatty liver. colonic diverticulosis with no evidence of diverticulitis, fibroid uterus -Abdominal ultrasound in 01/2018: increased echogenicity of liver parenchyma, no mass, no intrahepatic bile duct dilation -Continue with CIWA protocol and reevaluate in the morning. -Banana bag given in ER -Ativan 1 mg Q4 and 2 mg Q6PRN for symptoms of withdrawal. Avoid librium and valium due to cirrhosis -Multivitamin, thiamine, and folate starting tomorrow -Toradol 30 mg Q6PRN for pain Alcoholic Cirrhosis of liver -Confirmed on Abdominal and Pelvis CT -Abdominal ultrasound in 01/2018: increased echogenicity of liver parenchyma, no mass, no intrahepatic bile duct dilation -AST: 122, ALT: 42, ALP: 151 -Continue to monitor History of gastritis -Continue protonix 40 mg daily History of anxiety and depression -No prior thoughts of hurting herself -Currently not on any home medications -Continue to monitor. GI prophylaxis: protonix 40 mg daily DVT prophylaxis: lovenox 40 mg daily Patient plan discussed with Dr. Rodríguez. - Date & Time Date: 03/31/18 Time: 02:26
[2018-03-31 07:21] LABS: HEMOGLOBIN 10.7 g/dL (12.0-16.0); MEAN CELL VOLUME 93.1 fl (80.0-105.0); MEAN CORPUSCULAR HEMOGLOBIN 30.7 pg (25.0-35.0); MEAN PLATELET VOLUME 10.3 fl (7.0-11.0); RBC 3.48 10^6/uL (3.5-6.1); RED CELL DISTRIBUTION WIDTH 14.1 % (11.5-14.5); WHITE BLOOD COUNT 4.9 10^3/uL (4.5-11.0)
[2018-03-31 07:42] LABS: ALB/GLOB RATIO 1.2 (1.1-1.8); ALBUMIN 3.8 g/dL (3.0-4.8); ALT/SGPT 43 U/L (7-56); AST/SGOT 90 U/L (14-36); BLOOD UREA NITROGEN 15 mg/dL (7-21); CALCIUM 8.6 mg/dL (8.4-10.5); GFR NON-AFRICAN AMERICAN > 60
[2018-03-31 07:50] LABS: TROPONIN I 0.01 ng/mL
[2018-03-31 08:01] LABS: BENZODIAZEPINES, UR NEGATIVE (NEGATIVE)
[2018-03-31 08:02] LABS: BARBITURATES, UR NEGATIVE (NEGATIVE); OPIATES, UR NEGATIVE (NEGATIVE); PHENCYCLIDINE, UR NEGATIVE (NEGATIVE)
--- NOTE | 2018-03-31 08:44 | CT ---
Date of service: 03/31/2018 PROCEDURE: CT HEAD WITHOUT CONTRAST. HISTORY: multiple falls; c/o hallucinations seeing toys COMPARISON: 09/15/2013 TECHNIQUE: Axial computed tomography images were obtained through the head/brain without intravenous contrast. Radiation dose: Total exam DLP = 921.4 mGy-cm. This CT exam was performed using one or more of the following dose reduction techniques: Automated exposure control, adjustment of the mA and/or kV according to patient size, and/or use of iterative reconstruction technique. FINDINGS: HEMORRHAGE: No intracranial hemorrhage. BRAIN: No mass effect or edema. No atrophy or chronic microvascular ischemic changes. VENTRICLES: Unremarkable. No hydrocephalus. CALVARIUM: Unremarkable. PARANASAL SINUSES: Unremarkable as visualized. No significant inflammatory changes. MASTOID AIR CELLS: Unremarkable as visualized. No inflammatory changes. OTHER FINDINGS: The report concurs with the preliminary [facility] report IMPRESSION: No acute intracranial findings
--- NOTE | 2018-03-31 09:41 | CARD ---
APPROVED REPORT Date of service: 03/30/2018 EKG Measurement Heart [id number] <Conclusion> Sinus tachycardia Otherwise normal ECG
[2018-03-31] MEDS ORDERED: Enoxaparin 40 mg Syringe SC SCH (10:00)
[2018-03-31] MEDS ORDERED: Multivitamin Therapeutic Tab PO SCH ×2 (10:00)
[2018-03-31] MEDS: Multivitamin With Minerals Tab PO SCH (11:36)
[2018-03-31 12:15] LABS: BASO # 0.01 K/mm3 (0.0-2.0); BASO % 0.3 % (0.0-3.0); EOS # 0.1 (0.0-0.7); EOS % 1.3 % (1.5-5.0); GRAN # 2.57 (1.4-6.5); GRAN % 67.3 % (50.0-68.0); HEMOGLOBIN 10.8 g/dL (12.0-16.0); LYMPH # 0.7 (1.2-3.4); LYMPH % 19.1 % (22.0-35.0); MEAN CELL VOLUME 93.9 fl (80.0-105.0); MEAN CORPUSCULAR HEMOGLOBIN 31.1 pg (25.0-35.0); MEAN CORPUSCULAR HGB CONC 33.1 g/dl (31.0-37.0); MEAN PLATELET VOLUME 10.1 fl (7.0-11.0); MONO # 0.5 (0.1-0.6); RBC 3.47 10^6/uL (3.5-6.1); RED CELL DISTRIBUTION WIDTH 14.1 % (11.5-14.5); WHITE BLOOD COUNT 3.8 10^3/uL (4.5-11.0)
[2018-03-31 12:26] LABS: ALB/GLOB RATIO 1.2 (1.1-1.8); ALBUMIN 3.9 g/dL (3.0-4.8); ALT/SGPT 35 U/L (7-56); AST/SGOT 82 U/L (14-36); BLOOD UREA NITROGEN 14 mg/dL (7-21); CALCIUM 8.9 mg/dL (8.4-10.5); GFR NON-AFRICAN AMERICAN > 60
[2018-03-31] MEDS: Nystatin 100,000 Units/ml Oral Susp 5 ml UD PO SCH ×3 (13:32→22:14)
--- NOTE | 2018-03-31 14:08 | CT ---
Date of service: 03/30/2018 PROCEDURE: CT Abdomen and Pelvis with contrast HISTORY: abd pain, vomiting COMPARISON: 01/26/2018 TECHNIQUE: Contrast dose: 100 cc of Omni 350 Radiation dose: Total exam DLP = 913.63 mGy-cm. This CT exam was performed using one or more of the following dose reduction techniques: Automated exposure control, adjustment of the mA and/or kV according to patient size, and/or use of iterative reconstruction technique. FINDINGS: LOWER THORAX: Unremarkable. LIVER: There is severe fatty infiltration of the liver and hepatomegaly GALLBLADDER AND BILE DUCTS: Gallbladder removed PANCREAS: Unremarkable. No gross lesion or ductal dilatation. SPLEEN: Unremarkable. ADRENALS: Unremarkable. No mass. KIDNEYS AND URETERS: Unremarkable. No hydronephrosis. No solid mass. VASCULATURE: Unremarkable. No aortic aneurysm. No aortic atherosclerotic calcification or mural plaque present. BOWEL: Unremarkable. No obstruction. No gross mural thickening. APPENDIX: Normal appendix. PERITONEUM: Unremarkable. No free fluid. No free air. LYMPH NODES: Unremarkable. No enlarged lymph nodes. BLADDER: Unremarkable. REPRODUCTIVE: 4 cm calcified fibroid in the uterine fundus BONES: No acute fracture. OTHER FINDINGS: The report concurs with the preliminary [facility] report IMPRESSION: No acute intra-abdominal findings. Hepatomegaly and severe fatty infiltration of the liver.
[2018-03-31 17:57] LABS: OSMOLALITY,URINE 328 mosm/kg (300-1000)
[2018-03-31] MEDS ORDERED: Pantoprazole 40 mg EC Tab PO ONE (20:30)
[2018-04-01 07:09] LABS: HEMOGLOBIN 10.8 g/dL (12.0-16.0); MEAN CELL VOLUME 93.6 fl (80.0-105.0); MEAN CORPUSCULAR HEMOGLOBIN 31.3 pg (25.0-35.0); MEAN CORPUSCULAR HGB CONC 33.4 g/dl (31.0-37.0); MEAN PLATELET VOLUME 10.9 fl (7.0-11.0); RBC 3.45 10^6/uL (3.5-6.1); RED CELL DISTRIBUTION WIDTH 13.8 % (11.5-14.5); WHITE BLOOD COUNT 2.9 10^3/uL (4.5-11.0)
--- NOTE | 2018-04-01 07:10 | CP.PCM.PN ---
<Michelle Seymour L - Last Filed: 04/01/18 15:32> Subjective - Date & Time of Evaluation Date of Evaluation: 04/01/18 Time of Evaluation: 07:09 - Subjective Subjective: Resident Progress Note for Hospitalist Service Patient examined at bedside. Patient given ativan x1 overnight. CIWA score currently 4. Patient also admits to epigastric discomfort and two episodes of diarrhea, states she did tolerate some breakfast. Denies nausea and vomiting. Objective - Vital Signs/Intake and Output Vital Signs (last 24 hours): Temp Pulse Resp BP Pulse Ox 98.3 F 95 H 20 113/68 96 04/01/18 00:01 04/01/18 06:00 04/01/18 00:01 04/01/18 00:01 04/01/18 00:01 Intake and Output: 04/01/18 04/01/18 06:59 18:59 Intake Total 240 Output Total 300 Balance -60 - Medications Medications: Current Medications Aspirin (Aspirin Chewable) 81 mg PO DAILY [facility] Last Admin: 03/31/18 11:36 Dose: 81 mg Enoxaparin Sodium (Lovenox) 40 mg SC DAILY [facility]; Protocol Last Admin: 03/31/18 10:39 Dose: 40 mg Folic Acid (Folic Acid) 1 mg PO DAILY [facility] Last Admin: 03/31/18 11:36 Dose: 1 mg Ketorolac Tromethamine (Toradol) 30 mg IVP Q6 PRN PRN Reason: Pain, moderate (4-7) Last Admin: 03/31/18 15:54 Dose: 30 mg Lorazepam (Ativan) 2 mg IVP Q6H PRN; Protocol PRN Reason: Seizure activity Lorazepam (Ativan) 1 mg IVP Q4H PRN; Protocol PRN Reason: Anxiety Last Admin: 03/31/18 16:01 Dose: 1 mg Lorazepam (Ativan) 1 mg IVP Q4H [facility]; Protocol Last Admin: 04/01/18 04:10 Dose: 1 mg Metoprolol Tartrate (Lopressor) 25 mg PO BRKDIN [facility] Last Admin: 03/31/18 16:01 Dose: 25 mg Multivitamins/Minerals (Therapeutic-M Tab) 1 tab PO 0800 [facility] Last Admin: 03/31/18 11:36 Dose: 1 tab Nystatin (Nystatin Oral Susp) 5 ml PO QID [facility] Last Admin: 03/31/18 22:14 Dose: 5 ml Ondansetron HCl (Zofran Inj) 4 mg IVP Q6H PRN PRN Reason: Nausea/Vomiting Last Admin: 04/01/18 04:14 Dose: 4 mg Pantoprazole Sodium (Protonix Inj) 40 mg IVP DAILY [facility] Last Admin: 03/31/18 10:39 Dose: 40 mg Spironolactone (Aldactone) 25 mg PO DAILY [facility] Last Admin: 03/31/18 11:34 Dose: 25 mg Thiamine HCl (Vitamin B1 Tab) 100 mg PO DAILY [facility] Last Admin: 03/31/18 11:36 Dose: 100 mg - Labs Labs: 03/31/18 12:00 03/31/18 12:00 PT 11.1 SECONDS (9.4-12.5) 03/30/18 23:30 INR 0.97 03/30/18 23:30 APTT 32.0 Seconds (25.1-36.5) 03/30/18 23:30 - Additional Findings Additional findings: - Constitutional Appears: Well, No Acute Distress, Unkempt - Head Exam Head Exam: ATRAUMATIC, NORMAL INSPECTION, NORMOCEPHALIC - Eye Exam Eye Exam: EOMI, PERRL - ENT Exam ENT Exam: Mucous Membranes Dry - Respiratory Exam Respiratory Exam: Clear to Auscultation Bilateral, NORMAL BREATHING PATTERN - Cardiovascular Exam Cardiovascular Exam: REGULAR RHYTHM, RRR, +S1, S2. absent: Murmur - GI/Abdominal Exam GI & Abdominal Exam: Normal Bowel Sounds, Soft. absent: Tenderness, Rebound, Distended - Extremities Exam Extremities exam: Positive for: full ROM - Neurological Exam Neurological exam: Altered, Oriented x3, CN II-XII Intact - Skin Skin Exam: Dry, Intact, Warm Assessment and Plan - Assessment and Plan (Free Text) Assessment: 72 year old [place] speaking female with past medical history hypertension, facial palsy, TIA, glaucoma, cirrhosis, osteoporosis, colitis, gastritis, UTI, anxiety, depression, panic disorder, and urinary retention presents with abdominal pain and alcohol withdrawal. Plan: Alcohol withdrawal - serum alcohol on admission 201 - UDS negative - CIWA protocol - Ativan 1 mg Q4H and 2 mg Q6H PRN for symptoms of withdrawal. - Zofran 4 mg Q6PRN - multivitamin, thiamine, folic acid daily - avoid librium and valium due to cirrhosis - cessation counseling Atypical chest pain - EKG: Sinus tachycardia at 110 bpm - troponins neg x3 - Aspirin 81 daily, Metoprolol Tartrate 25 mg daily, Spironolactone 25 mg daily - Toradol 30 mg Q6H PRN for pain Abdominal pain - history of gastritis and cirrhosis - Abdominal CT: no acute abdominal or pelvic pathology. hepatomegaly and fatty liver. colonic diverticulosis with no evidence of diverticulitis, fibroid uterus - Abdominal ultrasound 01/2018: increased echogenicity of liver parenchyma, no mass, no intrahepatic bile duct dilation - Protonix MICHEAL, Maalox PRN Anxiety and depression - currently no suicidal ideations - Psychiatry consulted. Appreciate recs. PPX - Protonix 40 mg PO daily - Lovenox 40 mg SC daily Case discussed with Dr. Cricket Seymour PGY-1 <Lise Harley - Last Filed: 04/05/18 17:04> Objective - Vital Signs/Intake and Output Vital Signs (last 24 hours): Temp Pulse Resp BP Pulse Ox 97.2 F L 90 20 110/60 97 04/04/18 18:00 04/04/18 18:00 04/04/18 18:00 04/04/18 18:00 04/04/18 18:00 - Labs Labs: 04/04/18 06:30 04/04/18 06:30 PT 11.1 SECONDS (9.4-12.5) 03/30/18 23:30 INR 0.97 03/30/18 23:30 APTT 32.0 Seconds (25.1-36.5) 03/30/18 23:30 Attending/Attestation - Attestation I have personally seen and examined this patient.: Yes I have fully participated in the care of the patient.: Yes I have reviewed all pertinent clinical information, including history, physical exam and plan: Yes Notes (Text): 04/05/18 17:04 Medical record note made by the resident after discussion with my direction and input after the patient was personally seen and examined by me. I have reviewed the chart and agree that the record accurately reflects by personal performance of the history, physical exam, data review, and medical decision-making, in the course for the patient. I have also personally directed the plan of care.
[2018-04-01 07:22] LABS: ALB/GLOB RATIO 1.1 (1.1-1.8); ALBUMIN 3.7 g/dL (3.0-4.8); ALT/SGPT 35 U/L (7-56); AST/SGOT 71 U/L (14-36); BLOOD UREA NITROGEN 10 mg/dL (7-21); CALCIUM 9.1 mg/dL (8.4-10.5); GFR NON-AFRICAN AMERICAN > 60
[2018-04-01] MEDS: Multivitamin With Minerals Tab PO SCH (08:00)
[2018-04-01] MEDS: Nystatin 100,000 Units/ml Oral Susp 5 ml UD PO SCH ×4 (10:56→21:29)
[2018-04-01] MEDS ORDERED: Alum-Mag Hydrox-Simethicone Susp (30 mL) PO PRN (13:21)
--- NOTE | 2018-04-01 20:56 | CP.PCM.PCO ---
Physician Communication Note - Physician Communication Note Physician Communication Note: patient resting comfortable,pt rec Chel,psych consult pending,SW/CM for CHEL
[2018-04-02 06:47] LABS: ALB/GLOB RATIO 1.1 (1.1-1.8); ALBUMIN 3.7 g/dL (3.0-4.8); ALT/SGPT 41 U/L (7-56); AST/SGOT 69 U/L (14-36); BLOOD UREA NITROGEN 11 mg/dL (7-21); CALCIUM 9.1 mg/dL (8.4-10.5); GFR NON-AFRICAN AMERICAN > 60
[2018-04-02 06:59] LABS: MEAN CELL VOLUME 93.7 fl (80.0-105.0); MEAN CORPUSCULAR HEMOGLOBIN 31.7 pg (25.0-35.0); MEAN CORPUSCULAR HGB CONC 33.8 g/dl (31.0-37.0); MEAN PLATELET VOLUME 11.3 fl (7.0-11.0); RBC 3.47 10^6/uL (3.5-6.1); RED CELL DISTRIBUTION WIDTH 13.5 % (11.5-14.5); WHITE BLOOD COUNT 4.8 10^3/uL (4.5-11.0)
--- NOTE | 2018-04-02 07:10 | CP.PCM.PN ---
<Michelle Seymour L - Last Filed: 04/02/18 17:12> Subjective - Date & Time of Evaluation Date of Evaluation: 04/02/18 Time of Evaluation: 07:09 - Subjective Subjective: Resident Progress Note for Hospitalist Service Patient examined at bedside. CIWA score overnight was 1. Patient complains of pain in left lower extremity on her toe and insomnia. Patient refuses subacute rehab and states she would like to go home. Denies fevers, chills, chest pain, shortness of breath. Objective - Vital Signs/Intake and Output Vital Signs (last 24 hours): Temp Pulse Resp BP Pulse Ox 98 F 88 20 150/90 99 04/01/18 16:56 04/02/18 05:51 04/01/18 16:56 04/01/18 17:58 04/01/18 16:56 Intake and Output: 04/02/18 04/02/18 06:59 18:59 Intake Total 1140 Output Total 1200 Balance -60 - Medications Medications: Current Medications Al Hydrox/Mg Hydrox/Simethicone (Maalox Plus 30 Ml) 30 ml PO DAILY PRN PRN Reason: Indigestion / Heartburn Aspirin (Aspirin Chewable) 81 mg PO DAILY [facility] Last Admin: 04/01/18 10:54 Dose: 81 mg Folic Acid (Folic Acid) 1 mg PO DAILY [facility] Last Admin: 04/01/18 10:55 Dose: 1 mg Ketorolac Tromethamine (Toradol) 15 mg IVP Q6 PRN PRN Reason: Pain, moderate (4-7) Last Admin: 04/02/18 02:19 Dose: 15 mg Lorazepam (Ativan) 1 mg IVP Q4H PRN; Protocol PRN Reason: Anxiety Last Admin: 04/02/18 02:20 Dose: 1 mg Metoprolol Tartrate (Lopressor) 25 mg PO BRKDIN [facility] Last Admin: 04/01/18 17:58 Dose: 25 mg Multivitamins/Minerals (Therapeutic-M Tab) 1 tab PO 0800 [facility] Last Admin: 04/01/18 08:00 Dose: 1 tab Nystatin (Nystatin Oral Susp) 5 ml PO QID [facility] Last Admin: 04/01/18 21:29 Dose: 5 ml Ondansetron HCl (Zofran Inj) 4 mg IVP Q6H PRN PRN Reason: Nausea/Vomiting Last Admin: 04/01/18 04:14 Dose: 4 mg Pantoprazole Sodium (Protonix Ec Tab) 40 mg PO ACB [facility] Spironolactone (Aldactone) 25 mg PO DAILY [facility] Last Admin: 04/01/18 10:54 Dose: 25 mg Thiamine HCl (Vitamin B1 Tab) 100 mg PO DAILY [facility] Last Admin: 04/01/18 10:57 Dose: 100 mg - Labs Labs: 04/01/18 06:00 04/02/18 05:30 PT 11.1 SECONDS (9.4-12.5) 03/30/18 23:30 INR 0.97 03/30/18 23:30 APTT 32.0 Seconds (25.1-36.5) 03/30/18 23:30 - Additional Findings Additional findings: - Constitutional Appears: Well, No Acute Distress, Unkempt - Head Exam Head Exam: ATRAUMATIC, NORMAL INSPECTION, NORMOCEPHALIC - Eye Exam Eye Exam: EOMI, PERRL - ENT Exam ENT Exam: Mucous Membranes Dry - Respiratory Exam Respiratory Exam: Clear to Auscultation Bilateral, NORMAL BREATHING PATTERN - Cardiovascular Exam Cardiovascular Exam: REGULAR RHYTHM, RRR, +S1, S2. absent: Murmur - GI/Abdominal Exam GI & Abdominal Exam: Normal Bowel Sounds, Soft. absent: Tenderness, Rebound, Distended - Extremities Exam Extremities exam: Positive for: full ROM Additional comments: erythema and fluctuance on LLE second toe with no drainage - Neurological Exam Neurological exam: Altered, Oriented x3, CN II-XII Intact - Skin Skin Exam: Dry, Intact, Warm Assessment and Plan - Assessment and Plan (Free Text) Assessment: 72 year old Maltese speaking female with past medical history hypertension, facial palsy, TIA, glaucoma, cirrhosis, osteoporosis, colitis, gastritis, UTI, anxiety, depression, panic disorder, and urinary retention presents with abdominal pain and alcohol withdrawal. Plan: Alcohol withdrawal - serum alcohol on admission 201 - UDS negative - [facility] protocol - Ativan 1 mg Q4H and 2 mg Q6H PRN for symptoms of withdrawal. - Zofran 4 mg Q6PRN - multivitamin, thiamine, folic acid daily - avoid librium and valium due to cirrhosis - cessation counseling Toe abscess - Podiatry consulted. - s/p I&D with no complications - followup foot x-ray Atypical chest pain - EKG: Sinus tachycardia at 110 bpm - troponins neg x3 - Aspirin 81 daily, Metoprolol Tartrate 25 mg daily, Spironolactone 25 mg daily - Toradol 30 mg Q6H PRN for pain Abdominal pain - history of gastritis and cirrhosis - Abdominal CT: no acute abdominal or pelvic pathology. hepatomegaly and fatty liver. colonic diverticulosis with no evidence of diverticulitis, fibroid uterus - Abdominal ultrasound 01/2018: increased echogenicity of liver parenchyma, no mass, no intrahepatic bile duct dilation - Protonix MICHEAL, Maalox PRN Anxiety and depression - currently no suicidal ideations - Psychiatry consulted. Appreciate recs. - Seroquel 12.5 mg PO HS PPX - Protonix 40 mg PO daily - Lovenox 40 mg SC daily Case discussed with Dr. Cricket Seymour PGY-1 <Lise Harley - Last Filed: 04/05/18 17:04> Objective - Vital Signs/Intake and Output Vital Signs (last 24 hours): Temp Pulse Resp BP Pulse Ox 97.2 F L 90 20 110/60 97 04/04/18 18:00 04/04/18 18:00 04/04/18 18:00 04/04/18 18:00 04/04/18 18:00 - Labs Labs: 04/04/18 06:30 04/04/18 06:30 PT 11.1 SECONDS (9.4-12.5) 03/30/18 23:30 INR 0.97 03/30/18 23:30 APTT 32.0 Seconds (25.1-36.5) 03/30/18 23:30 Attending/Attestation - Attestation I have personally seen and examined this patient.: Yes I have fully participated in the care of the patient.: Yes I have reviewed all pertinent clinical information, including history, physical exam and plan: Yes
[2018-04-02] MEDS: Multivitamin With Minerals Tab PO SCH (09:38)
[2018-04-02] MEDS: Pantoprazole 40 mg EC Tab PO SCH (09:39)
[2018-04-02] MEDS: Nystatin 100,000 Units/ml Oral Susp 5 ml UD PO SCH ×4 (09:40→21:20)
--- NOTE | 2018-04-02 13:14 | CP.PCM.CON ---
<Windy Prado - Last Filed: 04/02/18 15:23> History of Present Illness - History of Present Illness History of Present Illness: Podiatry consult note for Dr. Galvan/Steven 72 year old somnolent, AAOx2 at bedside, and Taiwanese speaking female with past medical history of hypertension, facial palsy, TIA, glaucoma, cirrhosis, osteoporosis, colitis, gastritis, UTI, anxiety, depression, panic disorder, and urinary retention presents with left foot second digit abscess. Patient states its been present for over 6 months and has been red and swollen for the last 3 months. Denies fever. Denies seeing a doctor for the problem. Denies any other pedal complains. Admits to vomiting. PMH: as stated above PSH: cholecystectomy FMHx: noncontributary SHx: 2 pints of vodka daily. Last drink was the morning of 03/30. Patient used to drink before being diagnosed with cirrhosis at unknown time. Patient has unknown drinking history prior to cirrhosis. Patient reports 30 pack year history and stopped smoking 30 years ago. Patient denies recreational drug use. Allergies: NKDA Past Patient History - Infectious Disease Hx of Infectious Diseases: None - Past Social History Smoking Status: Former Smoker - CARDIAC Hx Hypertension: Yes - PULMONARY Hx Respiratory Disorders: No - NEUROLOGICAL Hx Neurological Disorder: Yes Other/Comment: facial palsy,left facial droop 2014 - HEENT Hx HEENT Problems: Yes Hx Glaucoma: Yes - RENAL Hx Chronic Kidney Disease: No - ENDOCRINE/METABOLIC Hx Endocrine Disorders: No - HEMATOLOGICAL/ONCOLOGICAL Hx Blood Disorders: Yes Hx Cirrhosis: Yes - INTEGUMENTARY Hx Dermatological Problems: No - MUSCULOSKELETAL/RHEUMATOLOGICAL Hx Falls: No - GASTROINTESTINAL Hx Gastrointestinal Disorders: Yes Hx Gall Bladder Disease: Yes (cholecystectomy) Hx Liver Failure: Yes (cirrhosis, liver biopsy 2013) Other/Comment: colitis, gastritis,abdominal pain - GENITOURINARY/GYNECOLOGICAL Hx Genitourinary Disorders: Yes Hx Urinary Tract Infection: Yes - PSYCHIATRIC Hx Psychophysiologic Disorder: Yes Hx Anxiety: Yes Hx Depression: Yes Hx Panic Symptoms: Yes Hx Substance Use: No Other/Comment: alcohol use, as per patient she drinks 3 bottles of rum daily - SURGICAL HISTORY Hx Cholecystectomy: Yes - ANESTHESIA Hx Anesthesia Reactions: No Hx Malignant Hyperthermia: No Meds Allergies/Adverse Reactions: Allergies Allergy/AdvReac Type Severity Reaction Status Date / Time No Known Allergies Allergy Verified 10/02/17 16:51 - Medications Medications: Current Medications Al Hydrox/Mg Hydrox/Simethicone (Maalox Plus 30 Ml) 30 ml PO DAILY PRN PRN Reason: Indigestion / Heartburn Aspirin (Aspirin Chewable) 81 mg PO DAILY [facility] Last Admin: 04/02/18 09:39 Dose: 81 mg Folic Acid (Folic Acid) 1 mg PO DAILY [facility] Last Admin: 04/02/18 09:39 Dose: 1 mg Ampicillin Sodium/Sulbactam (Sodium 3 gm/ Sodium Chloride) 100 mls @ 200 mls/hr IVPB Q6 [facility]; Protocol Vancomycin HCl (Vancomycin 1gm) 1 gm in 250 mls @ 167 mls/hr IVPB DAILY [facility]; Protocol Ketorolac Tromethamine (Toradol) 15 mg IVP Q6 PRN PRN Reason: Pain, moderate (4-7) Last Admin: 04/02/18 09:40 Dose: 15 mg Lorazepam (Ativan) 1 mg IVP Q4H PRN; Protocol PRN Reason: Anxiety Last Admin: 04/02/18 08:07 Dose: 1 mg Metoprolol Tartrate (Lopressor) 25 mg PO BRKDIN [facility] Last Admin: 04/02/18 09:39 Dose: 25 mg Multivitamins/Minerals (Therapeutic-M Tab) 1 tab PO 0800 [facility] Last Admin: 04/02/18 09:38 Dose: 1 tab Nystatin (Nystatin Oral Susp) 5 ml PO QID [facility] Last Admin: 04/02/18 09:40 Dose: 5 ml Ondansetron HCl (Zofran Inj) 4 mg IVP Q6H PRN PRN Reason: Nausea/Vomiting Last Admin: 04/01/18 04:14 Dose: 4 mg Pantoprazole Sodium (Protonix Ec Tab) 40 mg PO ACB [facility] Last Admin: 04/02/18 09:39 Dose: 40 mg Spironolactone (Aldactone) 25 mg PO DAILY [facility] Last Admin: 04/02/18 09:38 Dose: 25 mg Thiamine HCl (Vitamin B1 Tab) 100 mg PO DAILY [facility] Last Admin: 04/02/18 09:40 Dose: 100 mg Physical Exam - Constitutional Appears: Well, Non-toxic, No Acute Distress - Head Exam Head Exam: ATRAUMATIC, NORMOCEPHALIC - Eye Exam Eye Exam: Normal appearance Pupil Exam: NORMAL ACCOMODATION - ENT Exam ENT Exam: Mucous Membranes Moist - Extremities Exam Additional comments: Left lower extremity exam: Vascular: DP/PT 2/4, CFT <3 secs x 5, TG warm to warm ( warmer on the second digit), erythema and edema noted to the second digit neuro: protective sensation intact via ipswich 06/27 derm: healed ulcer noted on the dorsal aspect of second PIPJ, fluctuance noted at the second digit, no active drainage, erythema and edema noted surrounding the fluctuance, no other open lesions. ortho: moderate pain upon palpation of the second digit, rigid hammertoe of the second digit Results - Vital Signs Recent Vital Signs: Last Vital Signs Temp 98 F 04/02/18 08:14 Pulse 94 H 04/02/18 09:39 Resp 20 04/02/18 08:14 BP 131/86 04/02/18 09:39 Pulse Ox 97 04/02/18 08:14 - Labs Result Diagrams: 04/02/18 05:30 04/02/18 05:30 Labs: Laboratory Results - last 24 hr 04/02/18 04/02/18 05:30 05:30 WBC 4.8 D RBC 3.47 L Hgb 11.0 L Hct 32.5 L MCV 93.7 MCH 31.7 MCHC 33.8 RDW 13.5 Plt Count 80 L MPV 11.3 H Sodium 129 L Potassium 3.7 Chloride 89 L Carbon Dioxide 33 Anion Gap 11 BUN 11 Creatinine 0.5 L Est GFR ( Amer) > 60 Est GFR (Non-Af Amer) > 60 Random Glucose 113 H Calcium 9.1 Phosphorus 3.3 Magnesium 2.1 Total Bilirubin 0.6 AST 69 H ALT 41 Alkaline Phosphatase 105 Total Protein 6.9 Albumin 3.7 Globulin 3.3 Albumin/Globulin Ratio 1.1 Assessment & Plan - Assessment and Plan (Free Text) Assessment: 72 yo female seen and evaluated for left second digit abscess. Plan: Patient seen and evaluated Chart, labs and vitals reviewed Abscess drained using a sterile suture removal kit and #10 blade, 2 cc of purulent drainage noted; patient tolerated without any complications Cultures of the drainage taken Left foot x-rays ordered Left foot dressed with xeroform and [facility] podiatry will continue to follow the patient Thank you for the consult. <Arloro,Vincent - Last Filed: 04/02/18 15:59> Meds - Medications Medications: Current Medications Al Hydrox/Mg Hydrox/Simethicone (Maalox Plus 30 Ml) 30 ml PO DAILY PRN PRN Reason: Indigestion / Heartburn Aspirin (Aspirin Chewable) 81 mg PO DAILY [facility] Last Admin: 04/02/18 09:39 Dose: 81 mg Folic Acid (Folic Acid) 1 mg PO DAILY [facility] Last Admin: 04/02/18 09:39 Dose: 1 mg Ampicillin Sodium/Sulbactam (Sodium 3 gm/ Sodium Chloride) 100 mls @ 200 mls/hr IVPB Q6 [facility]; Protocol Vancomycin HCl (Vancomycin 1gm) 1 gm in 250 mls @ 167 mls/hr IVPB DAILY [facility]; Protocol Last Admin: 04/02/18 13:36 Dose: 167 mls/hr Ketorolac Tromethamine (Toradol) 15 mg IVP Q6 PRN PRN Reason: Pain, moderate (4-7) Last Admin: 04/02/18 09:40 Dose: 15 mg Lorazepam (Ativan) 1 mg IVP Q4H PRN; Protocol PRN Reason: Anxiety Last Admin: 04/02/18 15:04 Dose: 1 mg Metoprolol Tartrate (Lopressor) 25 mg PO BRKDIN [facility] Last Admin: 04/02/18 09:39 Dose: 25 mg Multivitamins/Minerals (Therapeutic-M Tab) 1 tab PO 0800 [facility] Last Admin: 04/02/18 09:38 Dose: 1 tab Nystatin (Nystatin Oral Susp) 5 ml PO QID [facility] Last Admin: 04/02/18 14:33 Dose: Not Given Ondansetron HCl (Zofran Inj) 4 mg IVP Q6H PRN PRN Reason: Nausea/Vomiting Last Admin: 04/01/18 04:14 Dose: 4 mg Pantoprazole Sodium (Protonix Ec Tab) 40 mg PO ACB [facility] Last Admin: 04/02/18 09:39 Dose: 40 mg Spironolactone (Aldactone) 25 mg PO DAILY [facility] Last Admin: 04/02/18 09:38 Dose: 25 mg Thiamine HCl (Vitamin B1 Tab) 100 mg PO DAILY [facility] Last Admin: 04/02/18 09:40 Dose: 100 mg Results - Vital Signs Recent Vital Signs: Last Vital Signs Temp 98 F 04/02/18 08:14 Pulse 94 H 04/02/18 09:39 Resp 20 04/02/18 08:14 BP 131/86 04/02/18 09:39 Pulse Ox 97 04/02/18 08:14 - Labs Result Diagrams: 04/02/18 05:30 04/02/18 05:30 Labs: Laboratory Results - last 24 hr 04/01/18 04/02/18 04/02/18 10:40 05:30 05:30 WBC 4.8 D RBC 3.47 L Hgb 11.0 L Hct 32.5 L MCV 93.7 MCH 31.7 MCHC 33.8 RDW 13.5 Plt Count 80 L MPV 11.3 H Sodium 129 L Potassium 3.7 Chloride 89 L Carbon Dioxide 33 Anion Gap 11 BUN 11 Creatinine 0.5 L Est GFR ( Amer) > 60 Est GFR (Non-Af Amer) > 60 Random Glucose 113 H Calcium 9.1 Phosphorus 3.3 Magnesium 2.1 Total Bilirubin 0.6 AST 69 H ALT 41 Alkaline Phosphatase 105 Total Protein 6.9 Albumin 3.7 Globulin 3.3 Albumin/Globulin Ratio 1.1 HIV 1&2 Ag/Ab, 4th Gen Nonreactive Attending/Attestation - Attestation I have personally seen and examined this patient.: Yes I have fully participated in the care of the patient.: Yes I have reviewed all pertinent clinical information: Yes
[2018-04-02] MEDS: Vancomycin 1gm in NS 250ml 1 GM/250 ML BAG IVPB SCH (13:36)
--- NOTE | 2018-04-02 16:20 | CP.PCM.PCO ---
Physician Communication Note - Physician Communication Note Physician Communication Note: pt seen earlier,no withrawal symptoms noted, c/o abscess to 2nd toe,lt.foot
--- NOTE | 2018-04-02 16:21 | CP.PCM.PCO ---
Physician Communication Note - Physician Communication Note Physician Communication Note: per podiatry if xray foot neg osteo can be cleared for DC wJENY antibx.
--- NOTE | 2018-04-02 17:50 | CON ---
DATE: 04/02/2018 HISTORY OF PRESENT ILLNESS: In short, the patient is a 72-year-old female, history of alcohol use disorder. The patient was admitted on the medical side for evaluation of chest pain. The patient has history of alcohol withdrawal delirium and depression, that is why this group underwriter got involved into the patient's care. This patient is very familiar to this group underwriter from the previous hospitalization to the medical floor as well as consultation services. The patient presented to be alert and oriented, pleasant, cooperative. The patient is Maldivian-speaking, this group underwriter utilized Maldivian-speaking nurses for translation. The patient reported that she came to the hospital because of the chest pain, right now she feels a little bit better. The patient reported that at nighttime she could hear voices and seeing things. The patient reported that her depression is little bit better. The patient reported that her came back to her, and he wants to stay with her, the patient was asking about family sessions. The patient also was asking about followup appointment in the community. This group underwriter would like to emphasize the fact that this group underwriter provided all information last admission, but for whatever reason, the patient was not able to follow up with outpatient services. Going back to the patient's presentation, the patient denied hearing voices, denied seeing things during the interview, the patient denied feeling of hopelessness or helplessness. The patient denied any thoughts of harming herself or others. Vital signs reviewed. The patient is mildly tachycardic, blood pressure is within normal limits. Medications reviewed. The patient is on IV antibiotics. The patient is on folic acid, Toradol, Ativan 1 mg IV push q.4h. as needed. The patient is on Lopressor, multivitamins, nystatin, Zofran, Protonix, and Seroquel 12.5 mg at the nighttime was started by this group underwriter. The patient is on Aldactone, vitamin B1, vancomycin as well. LABORATORY DATA: Labs reviewed. WBC cells of 4.8, hemoglobin and hematocrit are 11 and 32.5. Coagulation reviewed. Chemistry reviewed. Urinalysis reviewed. Toxicology reviewed. Alcohol level was 201 at the time of admission. Microbiology reviewed. Methicillin-resistant Staphylococcus aureus and urine culture. MENTAL STATUS EXAMINATION: The patient presented to be alert and oriented, somewhat pleasant, intermittent eye contact. Mood described as feeling better. Affect was constricted, but not tearful. Thought process was concrete. Thought content, the patient denied visual, auditory, or tactile hallucinations. Denied paranoid ideation. The patient reported the last time she hears things and seeing things was last night. Insight and judgment seemed to be limited, but improving. Impulses are well controlled. The patient does not express interest to go to inpatient rehab. The patient has future oriented plans. IMPRESSION: Rule out substance-induced mood disorder, alcohol use disorder, alcohol withdrawal symptoms, rule out mood disorder due to general medical condition. PLAN: Continue current management. Continue current medications. Monitor withdrawal symptoms. Seroquel was started at 12.5 mg at the nighttime for possible hallucinations and withdrawal delirium. The patient was advised to follow up with outpatient services. This group underwriter was advised by medical team as well as a resident to provide the patient with outpatient services information. At this point, the patient does not want to stay in the hospital and does not want to go to inpatient rehab. She wants to be a discharge back home. If the patient will stay on the medical site, we will follow up on her tomorrow. Should you have any questions give me a call back. If the patient was to be discharged back home, there is no contraindication from the psychiatric standpoint. The patient denied any thoughts of harming herself or others, but if the patient wants to leave against medical advice, capacity needs to be assessed by medical team. Meanwhile, should you have any questions give me a call back. Thank you very much for letting me participate in the care of your patient. Pam Mathews MD
[2018-04-03 08:24] LABS: BASO # 0.03 K/mm3 (0.0-2.0); BASO % 0.8 % (0.0-3.0); EOS # 0.4 (0.0-0.7); EOS % 9.4 % (1.5-5.0); GRAN # 1.75 (1.4-6.5); GRAN % 45.6 % (50.0-68.0); HEMOGLOBIN 11.2 g/dL (12.0-16.0); LYMPH # 1.1 (1.2-3.4); LYMPH % 28.5 % (22.0-35.0); MEAN CELL VOLUME 94.7 fl (80.0-105.0); MEAN CORPUSCULAR HEMOGLOBIN 31.1 pg (25.0-35.0); MEAN CORPUSCULAR HGB CONC 32.8 g/dl (31.0-37.0); MEAN PLATELET VOLUME 10.5 fl (7.0-11.0); MONO # 0.6 (0.1-0.6); MONO % 15.7 % (1.0-6.0); RBC 3.6 10^6/uL (3.5-6.1); RED CELL DISTRIBUTION WIDTH 13.9 % (11.5-14.5); WHITE BLOOD COUNT 3.8 10^3/uL (4.5-11.0)
[2018-04-03 08:37] LABS: ALB/GLOB RATIO 1.2 (1.1-1.8); ALBUMIN 3.6 g/dL (3.0-4.8); ALT/SGPT 57 U/L (7-56); AST/SGOT 118 U/L (14-36); BLOOD UREA NITROGEN 13 mg/dL (7-21); CALCIUM 9.2 mg/dL (8.4-10.5); GFR NON-AFRICAN AMERICAN > 60
[2018-04-03] MEDS: Pantoprazole 40 mg EC Tab PO SCH (08:38)
[2018-04-03] MEDS: Multivitamin With Minerals Tab PO SCH (08:38)
[2018-04-03] MEDS: Vancomycin 1gm in NS 250ml 1 GM/250 ML BAG IVPB SCH (09:41)
[2018-04-03] MEDS: Nystatin 100,000 Units/ml Oral Susp 5 ml UD PO SCH ×4 (09:41→22:02)
--- NOTE | 2018-04-03 10:28 | CP.PCM.PN ---
Subjective - Date & Time of Evaluation Date of Evaluation: 04/03/18 Time of Evaluation: 10:25 - Subjective Subjective: Podiatry progress note for Dr. Galvan/Steven 72 year old somnolent, AAOx2 at bedside, and Japanese speaking female with past medical history of hypertension, facial palsy, TIA, glaucoma, cirrhosis, osteoporosis, colitis, gastritis, UTI, anxiety, depression, panic disorder, and urinary retention presents with left foot second digit abscess. Denies acute overnight events. Denies f/n/v/sob/cp. Objective - Vital Signs/Intake and Output Vital Signs (last 24 hours): Temp Pulse Resp BP Pulse Ox 97.7 F 86 20 130/82 95 04/03/18 08:26 04/03/18 08:38 04/03/18 08:26 04/03/18 08:38 04/03/18 08:26 Intake and Output: 04/03/18 04/03/18 06:59 18:59 Intake Total 1440 Balance 1440 - Medications Medications: Current Medications Al Hydrox/Mg Hydrox/Simethicone (Maalox Plus 30 Ml) 30 ml PO DAILY PRN PRN Reason: Indigestion / Heartburn Aspirin (Aspirin Chewable) 81 mg PO DAILY [facility] Last Admin: 04/03/18 09:41 Dose: 81 mg Folic Acid (Folic Acid) 1 mg PO DAILY [facility] Last Admin: 04/03/18 09:41 Dose: 1 mg Ampicillin Sodium/Sulbactam (Sodium 3 gm/ Sodium Chloride) 100 mls @ 200 mls/hr IVPB Q6 [facility]; Protocol Last Admin: 04/03/18 05:53 Dose: 200 mls/hr Vancomycin HCl (Vancomycin 1gm) 1 gm in 250 mls @ 167 mls/hr IVPB DAILY [facility]; Protocol Last Admin: 04/03/18 09:41 Dose: 167 mls/hr Ketorolac Tromethamine (Toradol) 15 mg IVP Q6 PRN PRN Reason: Pain, moderate (4-7) Last Admin: 04/03/18 00:17 Dose: 15 mg Lorazepam (Ativan) 1 mg IVP Q4H PRN; Protocol PRN Reason: Anxiety Last Admin: 04/03/18 00:17 Dose: 1 mg Metoprolol Tartrate (Lopressor) 25 mg PO BRKDIN [facility] Last Admin: 04/03/18 08:38 Dose: 25 mg Multivitamins/Minerals (Therapeutic-M Tab) 1 tab PO 0800 [facility] Last Admin: 04/03/18 08:38 Dose: 1 tab Nystatin (Nystatin Oral Susp) 5 ml PO QID [facility] Last Admin: 04/03/18 09:41 Dose: 5 ml Ondansetron HCl (Zofran Inj) 4 mg IVP Q6H PRN PRN Reason: Nausea/Vomiting Last Admin: 04/01/18 04:14 Dose: 4 mg Pantoprazole Sodium (Protonix Ec Tab) 40 mg PO ACB [facility] Last Admin: 04/03/18 08:38 Dose: 40 mg Quetiapine Fumarate (Seroquel) 12.5 mg PO HS [facility]; Protocol Last Admin: 04/02/18 21:20 Dose: 12.5 mg Spironolactone (Aldactone) 25 mg PO DAILY [facility] Last Admin: 04/03/18 09:41 Dose: 25 mg Thiamine HCl (Vitamin B1 Tab) 100 mg PO DAILY [facility] Last Admin: 04/03/18 09:41 Dose: 100 mg - Labs Labs: 04/03/18 08:15 04/03/18 08:15 PT 11.1 SECONDS (9.4-12.5) 03/30/18 23:30 INR 0.97 03/30/18 23:30 APTT 32.0 Seconds (25.1-36.5) 03/30/18 23:30 - Constitutional Appears: Well, Non-toxic, No Acute Distress - Head Exam Head Exam: ATRAUMATIC, NORMOCEPHALIC - Eye Exam Eye Exam: Normal appearance Pupil Exam: NORMAL ACCOMODATION - ENT Exam ENT Exam: Mucous Membranes Moist - Neck Exam Neck Exam: Normal Inspection - Respiratory Exam Respiratory Exam: NORMAL BREATHING PATTERN - Extremities Exam Additional comments: Left lower extremity exam: Vascular: DP/PT 2/4, CFT <3 secs x 5, TG warm to warm ( warmer on the second digit), erythema and edema noted to the second digit neuro: protective sensation intact via ipswich 06/27 derm: wound noted at the previous site of incision and drainage, no active drainage, no fluctuance, no other open lesions, no IDM ortho: moderate pain upon palpation of the second digit, rigid hammertoe of the second digit Assessment and Plan - Assessment and Plan (Free Text) Assessment: 72 yo female seen and evaluated for left second digit abscess. Plan: Patient seen and evaluated Chart, labs and vitals reviewed Wound cultures f/u- gram positive cocci Left foot x-rays: no osseous erosions noted, no other acute Left foot dressed with xeroform and [facility] podiatry will continue to follow the patient ; no plan for further intervention, stable for discharge from podiatry point of view.
--- NOTE | 2018-04-03 11:25 | RAD ---
Date of service: 04/02/2018 PROCEDURE: Left Foot Radiographs. HISTORY: second digit ulcer COMPARISON: None. FINDINGS: BONES: Normal. No fracture. JOINTS: Normal. SOFT TISSUES: Normal. OTHER FINDINGS: None. IMPRESSION: Negative study
--- NOTE | 2018-04-03 14:05 | PN ---
DATE: 04/03/2018 SUBJECTIVE: The patient was seen and examined today. The patient presented to be alert and oriented, pleasant, cooperative. The patient is [place]guill[place] speaking and this sports book writer utilized nurse for translation. The patient reported that she slept well. The patient reported that her mood is fair. The patient was appreciative for information about outpatient providers and clinics. The patient was advised to stay away from alcohol. The patient was advised to schedule followup appointment. Also, the patient was advised to attend AA meetings and NA meetings. The patient verbalized understanding. Meanwhile, the patient denied being depressed. Denied thoughts of harming herself or others. Reported that she feels much better. Vital signs: Reviewed. Temperature 97.7, pulse is 86, respirations is 20, oxygen saturation 95 and blood pressure 130/82. Medications reviewed; Maalox, ampicillin, folic acid, Toradol, Ativan, metoprolol, vitamin E, multivitamins, nystatin, Zofran, Protonix, Seroquel 12.5 mg at the nighttime, Aldactone, thiamine and vancomycin. Labs reviewed.. Most recent was from today. Microbiology showed methicillin-resistant staph aureus in urine and the patient is on contact isolation. MENTAL STATUS EXAMINATION: As this sports book writer described above, the patient presented to be alert and oriented, pleasant, cooperative, social appropriate, fair eye contact. Mood described as I feel better. I slept better. Affect was reactive, mood congruent. Thought process was coherent and goal directed. Thought content, the patient denied visual, auditory, tactile hallucinations. Denied paranoid ideation. The patient denied thoughts of harming herself or others. Denied intents or plan. The patient is not psychotic and not suicidal. Insight and judgment improving. Impulses are well controlled. IMPRESSION: Rule out substance-induced mood disorder, but the patient presents much better, alcohol withdrawal symptoms which are under control. The patient has methicillin-resistant staph aureus in the urine. The patient is on contact isolation. PLAN: The patient was provided with information for outpatient clinics and providers. The patient is on Seroquel which needs to be continued only for 2 weeks. Medical team is aware of that. This sports book writer discussed that with Dr. Harley and residence. Meanwhile, the patient pose no imminent danger to self or others. All contact information were provided to the patient. Please monitor vital signs. Please consider naltrexone treatment as well as possible treatment. The patient presents much better. This sports book writer will sign off. Should you have any questions give me a call back. Pam Mathews MD
--- NOTE | 2018-04-03 14:46 | CP.PCM.PN ---
<Kaz Ramirez - Last Filed: 04/03/18 14:41> Subjective - Date & Time of Evaluation Date of Evaluation: 04/03/18 Time of Evaluation: 10:03 - Subjective Subjective: Kaz Ramirez PGY1 Hospital Progress Note Patient seen and examined at bedside this morning. Episode of afib overnight that resolved. Cardiology on consult. Offers no complaints today. Agreeable to TCU discharge when medically stable. Objective - Vital Signs/Intake and Output Vital Signs (last 24 hours): Temp Pulse Resp BP Pulse Ox 97.7 F 86 20 130/82 95 04/03/18 08:26 04/03/18 08:38 04/03/18 08:26 04/03/18 08:38 04/03/18 08:26 Intake and Output: 04/03/18 04/03/18 06:59 18:59 Intake Total 1440 Balance 1440 - Medications Medications: Current Medications Al Hydrox/Mg Hydrox/Simethicone (Maalox Plus 30 Ml) 30 ml PO DAILY PRN PRN Reason: Indigestion / Heartburn Aspirin (Aspirin Chewable) 81 mg PO DAILY [facility] Last Admin: 04/03/18 09:41 Dose: 81 mg Folic Acid (Folic Acid) 1 mg PO DAILY [facility] Last Admin: 04/03/18 09:41 Dose: 1 mg Ampicillin Sodium/Sulbactam (Sodium 3 gm/ Sodium Chloride) 100 mls @ 200 mls/hr IVPB Q6 [facility]; Protocol Last Admin: 04/03/18 12:06 Dose: 200 mls/hr Vancomycin HCl (Vancomycin 1gm) 1 gm in 250 mls @ 167 mls/hr IVPB DAILY [facility]; Protocol Last Admin: 04/03/18 09:41 Dose: 167 mls/hr Ketorolac Tromethamine (Toradol) 15 mg IVP Q6 PRN PRN Reason: Pain, moderate (4-7) Last Admin: 04/03/18 00:17 Dose: 15 mg Lorazepam (Ativan) 1 mg IVP Q4H PRN; Protocol PRN Reason: Anxiety Last Admin: 04/03/18 00:17 Dose: 1 mg Metoprolol Tartrate (Lopressor) 25 mg PO BRKDIN [facility] Last Admin: 04/03/18 08:38 Dose: 25 mg Multivitamins/Minerals (Therapeutic-M Tab) 1 tab PO 0800 [facility] Last Admin: 04/03/18 08:38 Dose: 1 tab Nystatin (Nystatin Oral Susp) 5 ml PO QID [facility] Last Admin: 04/03/18 14:34 Dose: 5 ml Ondansetron HCl (Zofran Inj) 4 mg IVP Q6H PRN PRN Reason: Nausea/Vomiting Last Admin: 04/01/18 04:14 Dose: 4 mg Pantoprazole Sodium (Protonix Ec Tab) 40 mg PO ACB [facility] Last Admin: 04/03/18 08:38 Dose: 40 mg Quetiapine Fumarate (Seroquel) 12.5 mg PO HS [facility]; Protocol Last Admin: 04/02/18 21:20 Dose: 12.5 mg Spironolactone (Aldactone) 25 mg PO DAILY [facility] Last Admin: 04/03/18 09:41 Dose: 25 mg Thiamine HCl (Vitamin B1 Tab) 100 mg PO DAILY [facility] Last Admin: 04/03/18 09:41 Dose: 100 mg - Labs Labs: 04/03/18 08:15 04/03/18 08:15 PT 11.1 SECONDS (9.4-12.5) 03/30/18 23:30 INR 0.97 03/30/18 23:30 APTT 32.0 Seconds (25.1-36.5) 03/30/18 23:30 - Additional Findings Additional findings: - Constitutional Appears: Well, No Acute Distress, Unkempt - Head Exam Head Exam: ATRAUMATIC, NORMAL INSPECTION, NORMOCEPHALIC - Eye Exam Eye Exam: EOMI, PERRL - ENT Exam ENT Exam: Mucous Membranes Dry - Respiratory Exam Respiratory Exam: Clear to Auscultation Bilateral, NORMAL BREATHING PATTERN - Cardiovascular Exam Cardiovascular Exam: REGULAR RHYTHM, RRR, +S1, S2. absent: Murmur - GI/Abdominal Exam GI & Abdominal Exam: Normal Bowel Sounds, Soft. absent: Tenderness, Rebound, Distended - Extremities Exam Extremities exam: Positive for: full ROM Additional comments: erythema and fluctuance on LLE second toe with no drainage - Neurological Exam Neurological exam: Altered, Oriented x3, CN II-XII Intact - Skin Skin Exam: Dry, Intact, Warm Assessment and Plan - Assessment and Plan (Free Text) Assessment: 72 year old Kinyarwanda speaking female with past medical history hypertension, facial palsy, TIA, glaucoma, cirrhosis, osteoporosis, colitis, gastritis, UTI, anxiety, depression, panic disorder, and urinary retention presents with abdominal pain and alcohol withdrawal. Patient agreeable to TCU discharge once medically clear. Plan: ?Atrial fibrillation -monitor noted afib in the 130's overnight that spontaneously resolved to NSR -cardiology on consult, Dr. Mg -TSH pending Toe abscess - Podiatry on consult - s/p I&D with no complications - left foot xray negative for acute findings - wound culture growing gram positive cocci - will continue with oral antibiotics upon discharge, patient agreeable with TCU - PT recommends TCU vs [facility] Alcohol withdrawal - serum alcohol on admission 201 - UDS negative - CIWA 1 overnight - Ativan 1mg prn, last dose given at midnight - Zofran 4 mg Q6PRN - multivitamin, thiamine, folic acid daily - avoid librium and valium due to cirrhosis - cessation counseling Atypical chest pain - EKG: Sinus tachycardia at 110 bpm - troponins neg x3 - Aspirin 81 daily, Metoprolol Tartrate 25 mg daily, Spironolactone 25 mg daily - Toradol 30 mg Q6H PRN for pain Abdominal pain - history of gastritis and cirrhosis - Abdominal CT: no acute abdominal or pelvic pathology. hepatomegaly and fatty liver. colonic diverticulosis with no evidence of diverticulitis, fibroid uterus - Abdominal ultrasound 01/2018: increased echogenicity of liver parenchyma, no mass, no intrahepatic bile duct dilation - Protonix [facility], Maalox PRN Anxiety and depression - currently no suicidal ideations - Psychiatry consulted. Appreciate recs. - Seroquel 12.5 mg PO HS PPX - Protonix 40 mg PO daily - Lovenox 40 mg SC daily Case discussed with Dr. Harley <Lise Harley - Last Filed: 04/05/18 17:03> Objective - Vital Signs/Intake and Output Vital Signs (last 24 hours): Temp Pulse Resp BP Pulse Ox 97.2 F L 90 20 110/60 97 04/04/18 18:00 04/04/18 18:00 04/04/18 18:00 04/04/18 18:00 04/04/18 18:00 - Labs Labs: 04/04/18 06:30 04/04/18 06:30 PT 11.1 SECONDS (9.4-12.5) 03/30/18 23:30 INR 0.97 03/30/18 23:30 APTT 32.0 Seconds (25.1-36.5) 03/30/18 23:30 Attending/Attestation - Attestation I have personally seen and examined this patient.: Yes I have fully participated in the care of the patient.: Yes I have reviewed all pertinent clinical information, including history, physical exam and plan: Yes Notes (Text): 04/05/18 17:03 Medical record note made by the resident after discussion with my direction and input after the patient was personally seen and examined by me. I have reviewed the chart and agree that the record accurately reflects by personal performance of the history, physical exam, data review, and medical decision-making, in the course for the patient. I have also personally directed the plan of care.
--- NOTE | 2018-04-03 15:34 | CP.PCM.APN ---
Subjective - Date & Time of Evaluation Date of Evaluation: 04/03/18 Time of Evaluation: 09:50 - Subjective Subjective: Pt. seen and examined. Noted to be resting comfortabley, denied abdominal pain, denied nausea, vomitting, denied foot pain, right foot is wrapped with harpal dressing. S/p drainage of 2nd toe right foot. Denied fever , chills. Denied tr emors or shaking, denied chest pain, shortness of breath, or palpitations.Overnight notes reviewed, patient had episode of rapid atrial fibrillation overnight, HR to 140, spontaneously converted to NSR. Review of Systems - Constitutional Constitutional: As Per HPI - Cardiovascular Cardiovascular: As Per HPI - Respiratory Respiratory: As Per HPI - Gastrointestinal Gastrointestinal: As Per HPI - Genitourinary Genitourinary: Other Additional comments: currently asymptomatic, with Urine cx resulting positive MRSA - Musculoskeletal Musculoskeletal: As Per HPI - Neurological Neurological: As Per HPI - Endocrine Endocrine: As Per HPI - Hematologic/Lymphatic Hematologic: As Per HPI Objective - Vital Signs/Intake and Output Vital Signs (last 24 hours): Temp Pulse Resp BP Pulse Ox 97.7 F 86 20 130/82 95 04/03/18 08:26 04/03/18 08:38 04/03/18 08:26 04/03/18 08:38 04/03/18 08:26 Intake and Output: 04/03/18 04/03/18 06:59 18:59 Intake Total 1440 Balance 1440 - Medications Medications: Current Medications Al Hydrox/Mg Hydrox/Simethicone (Maalox Plus 30 Ml) 30 ml PO DAILY PRN PRN Reason: Indigestion / Heartburn Aspirin (Aspirin Chewable) 81 mg PO DAILY [facility] Last Admin: 04/03/18 09:41 Dose: 81 mg Folic Acid (Folic Acid) 1 mg PO DAILY [facility] Last Admin: 04/03/18 09:41 Dose: 1 mg Ampicillin Sodium/Sulbactam (Sodium 3 gm/ Sodium Chloride) 100 mls @ 200 mls/hr IVPB Q6 [facility]; Protocol Last Admin: 04/03/18 12:06 Dose: 200 mls/hr Vancomycin HCl (Vancomycin 1gm) 1 gm in 250 mls @ 167 mls/hr IVPB DAILY [facility]; Pr otocol Last Admin: 04/03/18 09:41 Dose: 167 mls/hr Ketorolac Tromethamine (Toradol) 15 mg IVP Q6 PRN PRN Reason: Pain, moderate (4-7) Last Admin: 04/03/18 00:17 Dose: 15 mg Lorazepam (Ativan) 1 mg IVP Q4H PRN; Protocol PRN Reason: Anxiety Last Admin: 04/03/18 00:17 Dose: 1 mg Metoprolol Tartrate (Lopressor) 25 mg PO BRKDIN [facility] Last Admin: 04/03/18 08:38 Dose: 25 mg Multivitamins/Minerals (Therapeutic-M Tab) 1 tab PO 0800 [facility] Last Admin: 04/03/18 08:38 Dose: 1 tab Nystatin (Nystatin Oral Susp) 5 ml PO QID [facility] Last Admin: 04/03/18 14:34 Dose: 5 ml Ondansetron HCl (Zofran Inj) 4 mg IVP Q6H PRN PRN Reason: Nausea/Vomiting Last Admin: 04/01/18 04:14 Dose: 4 mg Pantoprazole Sodium (Protonix Ec Tab) 40 mg PO ACB [facility] Last Admin: 04/03/18 08:38 Dose: 40 mg Quetiapine Fumarate (Seroquel) 12.5 mg PO HS [facility]; Protocol Last Admin: 04/02/18 21:20 Dose: 12.5 mg Spironolactone (Aldactone) 25 mg PO DAILY [facility] Last Admin: 04/03/18 09:41 Dose: 25 mg Thiamine HCl (Vitamin B1 Tab) 100 mg PO DAILY [facility] Last Admin: 04/03/18 09:41 Dose: 100 mg - Labs Labs: 04/03/18 08:15 04/03/18 08:15 PT 11.1 SECONDS (9.4-12.5) 03/30/18 23:30 INR 0.97 03/30/18 23:30 APTT 32.0 Seconds (25.1-36.5) 03/30/18 23:30 - Constitutional Appears: Well, Non-toxic - Head Exam Head Exam: NORMOCEPHALIC - Eye Exam Eye Exam: Normal appearance - ENT Exam ENT Exam: Mucous Membranes Moist, Normal Exam - Neck Exam Neck Exam: Full ROM, Normal Inspection - Cardiovascular Exam Cardiovascular Exam: REGULAR RHYTHM, +S1, +S2 - Rectal Exam Rectal Exam: Deferred - Extremities Exam Extremities Exam: Full ROM - Back Exam Back Exam: NORMAL INSPECTION - Neurological Exam Neurological Exam: Alert, Oriented x3 - Skin Additional comments: right foot wrapped with dressing intact to second digit Assessment and Plan - Assessment and Plan (Free Text) Assessment: Impressions Chest X-Ray 03/30/18 16:36 IMPRESSION: No active disease. Abdomen/Pelvis CT 03/30/18 16:38 IMPRESSION: No acute intra-abdominal findings. Hepatomegaly and severe fatty infiltration of the liver. Head CT 03/30/18 23:32 IMPRESSION: No acute intracranial findings Foot X-Ray 04/02/18 15:25 IMPRESSION: Negative study Laboratory Results WBC 3.8 10^3/uL (4.5-11.0) L D 04/03/18 08:15 RBC 3.60 10^6/uL (3.5-6.1) 04/03/18 08:15 Hgb 11.2 g/dL (12.0-16.0) L 04/03/18 08:15 Hct 34.1 % (36.0-48.0) L 04/03/18 08:15 MCV 94.7 fl (80.0-105.0) 04/03/18 08:15 MCH 31.1 pg (25.0-35.0) 04/03/18 08:15 MCHC 32.8 g/dl (31.0-37.0) 04/03/18 08:15 RDW 13.9 % (11.5-14.5) 04/03/18 08:15 Plt Count 92 10^3/uL (120.0-450.0) L 04/03/18 08:15 MPV 10.5 fl (7.0-11.0) 04/03/18 08:15 Gran % 45.6 % (50.0-68.0) L 04/03/18 08:15 Lymph % (Auto) 28.5 % (22.0-35.0) 04/03/18 08:15 [place] % (Auto) 15.7 % (1.0-6.0) H 04/03/18 08:15 Eos % (Auto) 9.4 % (1.5-5.0) H 04/03/18 08:15 Baso % (Auto) 0.8 % (0.0-3.0) 04/03/18 08:15 Gran # 1.75 (1.4-6.5) 04/03/18 08:15 Lymph # (Auto) 1.1 (1.2-3.4) L 04/03/18 08:15 [place] # (Auto) 0.6 (0.1-0.6) 04/03/18 08:15 Eos # (Auto) 0.4 (0.0-0.7) 04/03/18 08:15 Baso # (Auto) 0.03 K/mm3 (0.0-2.0) 04/03/18 08:15 PT 11.1 SECONDS (9.4-12.5) 03/30/18 23:30 INR 0.97 03/30/18 23:30 APTT 32.0 Seconds (25.1-36.5) 03/30/18 23:30 Sodium 134 mmol/L (132-148) 04/03/18 08:15 Potassium 3.6 mmol/L (3.6-5.0) 04/03/18 08:15 Chloride 95 mmol/L (98-107) L 04/03/18 08:15 Carbon Dioxide 34 mmol/L (21-33) H 04/03/18 08:15 Anion Gap 8 (10-20) L 04/03/18 08:15 BUN 13 mg/dL (7-21) 04/03/18 08:15 Creatinine 0.5 mg/dl (0.7-1.2) L 04/03/18 08:15 Est GFR ( Amer) > 60 04/03/18 08:15 Est GFR (Non-Af Amer) > 60 04/03/18 08:15 Random Glucose 101 mg/dL (70-110) 04/03/18 08:15 Hemoglobin A1c 5.2 % (4.2-6.5) 03/31/18 02:14 Calcium 9.2 mg/dL (8.4-10.5) 04/03/18 08:15 Phosphorus 3.3 mg/dL (2.5-4.5) 04/02/18 05:30 Magnesium 2.1 mg/dL (1.7-2.2) 04/02/18 05:30 Total Bilirubin 0.6 mg/dL (0.2-1.3) 04/03/18 08:15 AST 118 U/L (14-36) H D 04/03/18 08:15 ALT 57 U/L (7-56) H 04/03/18 08:15 Alkaline Phosphatase 85 U/L (38-126) 04/03/18 08:15 Total Creatine Kinase 152 U/L (35-230) 03/30/18 18:10 Troponin I 0.01 ng/mL 03/31/18 07:00 Total Protein 6.8 g/dL (5.8-8.3) 04/03/18 08:15 Albumin 3.6 g/dL (3.0-4.8) 04/03/18 08:15 Globulin 3.1 gm/dL 04/03/18 08:15 Albumin/Globulin Ratio 1.2 (1.1-1.8) 04/03/18 08:15 Lipase 148 U/L (23-300) 03/30/18 18:10 TSH 3rd Generation 4.17 mIU/mL (0.46-4.68) 04/03/18 14:20 Urine Color Yellow (YELLOW) 03/30/18 17:23 Urine Appearance Slight-cloudy (CLEAR) 03/30/18 17:23 Urine pH 6.0 (4.7-8.0) 03/30/18 17:23 Ur Specific [place] 1.025 (1.005-1.035) 03/30/18 17:23 Urine Protein 30 mg/dL (<30 mg/dL) H 03/30/18 17:23 Urine Glucose (UA) Negative mg/dL (NEGATIVE) 03/30/18 17:23 Urine Ketones 15 mg/dL (NEGATIVE) H 03/30/18 17:23 Urine Blood Small (NEGATIVE) H 03/30/18 17:23 Urine Nitrate Negative (NEGATIVE) 03/30/18 17:23 Urine Bilirubin Negative (NEGATIVE) 03/30/18 17:23 Urine Urobilinogen 0.2 E.U./dL (<1 E.U./dL) 03/30/18 17:23 Ur Leukocyte Esterase Negative [place]/uL (NEGATIVE) 03/30/18 17:23 Urine RBC 0 - 2 /hpf (0-2) 03/30/18 17:23 Urine WBC Negative /hpf (0-6) 03/30/18 17:23 Ur Epithelial Cells 1 - 3 /hpf (0-5) 03/30/18 17:23 Hyaline Casts 0 - 2 /hpf (NONE) 03/30/18 17:23 Urine Osmolality 328 mosm/kg (300-1000) 03/31/18 17:15 Ur Random Sodium 74 meq/L 03/31/18 17:15 Urine Opiates Screen Negative (NEGATIVE) 03/31/18 07:35 Urine Methadone Screen Negative (NEGATIVE) 03/31/18 07:35 Ur Barbiturates Screen Negative (NEGATIVE) 03/31/18 07:35 Ur Phencyclidine Scrn Negative (NEGATIVE) 03/31/18 07:35 Ur Amphetamines Screen Negative (NEGATIVE) 03/31/18 07:35 U Benzodiazepines Scrn Negative (NEGATIVE) 03/31/18 07:35 U Oth Cocaine Metabols Negative (NEGATIVE) 03/31/18 07:35 U Cannabinoids Screen Negative (NEGATIVE) 03/31/18 07:35 Alcohol, Quantitative 201 mg/dL (0-10) H 03/30/18 18:10 HIV 1&2 Ag/Ab, 4th Gen Nonreactive (Nonreactive) 04/01/18 10:40 Assessment: 72 year old Romanian speaking female with past medical history hypertension, facial palsy, TIA, glaucoma, cirrhosis, osteoporosis, colitis, gastritis, UTI, anxiety, depression, panic disorder, and urinary retention presents with abdominal pain and alcohol withdrawal. Plan: 1. Epigastric pain Improved. 2. ETOH Withdrawal CIWA Improved, continue Ativan prn 3. UTI with Pos. MRSA Continue Vancomycin and Ampicillin IV 4. Rapid Atrial fibrillation now converted to sinus rhythm Awaiting cardiology consult. Continue Metoprolol for rate control Consider Aspirin 5. Abscess right foot second toe awaiting culture result, xray negative for osteo. Continue dressing as per podiatry Pt recommended TCU, SW/CM for DC planning to TCU, pending authorization Will continue to monitor clinical status and follow closely
--- NOTE | 2018-04-03 18:38 | CARD ---
APPROVED REPORT Date of service: 04/03/2018 EKG Measurement Heart [id number] <Conclusion> Normal sinus rhythm Normal ECG
[2018-04-04 07:06] LABS: BASO # 0.04 K/mm3 (0.0-2.0); BASO % 0.9 % (0.0-3.0); EOS # 0.4 (0.0-0.7); EOS % 8.9 % (1.5-5.0); GRAN # 2.01 (1.4-6.5); GRAN % 45.7 % (50.0-68.0); HEMOGLOBIN 10.8 g/dL (12.0-16.0); LYMPH # 1.3 (1.2-3.4); LYMPH % 30.2 % (22.0-35.0); MEAN CORPUSCULAR HGB CONC 32.3 g/dl (31.0-37.0); MEAN PLATELET VOLUME 10.4 fl (7.0-11.0); MONO # 0.6 (0.1-0.6); MONO % 14.3 % (1.0-6.0); RBC 3.48 10^6/uL (3.5-6.1); RED CELL DISTRIBUTION WIDTH 14.3 % (11.5-14.5); WHITE BLOOD COUNT 4.4 10^3/uL (4.5-11.0)
--- NOTE | 2018-04-04 07:17 | CP.PCM.PN ---
Subjective - Date & Time of Evaluation Date of Evaluation: 04/04/18 Time of Evaluation: 07:17 - Subjective Subjective: Resident Progress Note for Hospitalist Service Patient examined at bedside. Patient admits to insomnia overnight as well as LLE pain where abscess previously was. Reports improvement in epigastric discomfort. Plan for transfer to TCU when patient is medically stable. Denies fevers, chills, nausea, vomiting, chest pain, shortness of breath. Objective - Vital Signs/Intake and Output Vital Signs (last 24 hours): Temp Pulse Resp BP Pulse Ox 99.5 F 92 H 20 137/52 L 96 04/03/18 23:53 04/04/18 06:00 04/03/18 23:53 04/03/18 23:53 04/03/18 23:53 Intake and Output: 04/04/18 04/04/18 06:59 18:59 Intake Total 180 Output Total 400 Balance -220 - Medications Medications: Current Medications Al Hydrox/Mg Hydrox/Simethicone (Maalox Plus 30 Ml) 30 ml PO DAILY PRN PRN Reason: Indigestion / Heartburn Aspirin (Aspirin Chewable) 81 mg PO DAILY [facility] Last Admin: 04/03/18 09:41 Dose: 81 mg Folic Acid (Folic Acid) 1 mg PO DAILY [facility] Last Admin: 04/03/18 09:41 Dose: 1 mg Ampicillin Sodium/Sulbactam (Sodium 3 gm/ Sodium Chloride) 100 mls @ 200 mls/hr IVPB Q6 [facility]; Protocol Last Admin: 04/04/18 05:01 Dose: 200 mls/hr Vancomycin HCl (Vancomycin 1gm) 1 gm in 250 mls @ 167 mls/hr IVPB DAILY [facility]; Protocol Last Admin: 04/03/18 09:41 Dose: 167 mls/hr Ketorolac Tromethamine (Toradol) 15 mg IVP Q6 PRN PRN Reason: Pain, moderate (4-7) Last Admin: 04/04/18 04:58 Dose: 15 mg Lorazepam (Ativan) 1 mg IVP Q4H [facility]; Protocol PRN Reason: Anxiety Last Admin: 04/04/18 04:44 Dose: 1 mg Metoprolol Tartrate (Lopressor) 25 mg PO BRKDIN [facility] Last Admin: 04/03/18 18:22 Dose: 25 mg Multivitamins/Minerals (Therapeutic-M Tab) 1 tab PO 0800 [facility] Last Admin: 04/03/18 08:38 Dose: 1 tab Nystatin (Nystatin Oral Susp) 5 ml PO QID [facility] Last Admin: 04/03/18 22:02 Dose: 5 ml Ondansetron HCl (Zofran Inj) 4 mg IVP Q6H PRN PRN Reason: Nausea/Vomiting Last Admin: 04/01/18 04:14 Dose: 4 mg Pantoprazole Sodium (Protonix Ec Tab) 40 mg PO ACB [facility] Last Admin: 04/03/18 08:38 Dose: 40 mg Quetiapine Fumarate (Seroquel) 12.5 mg PO HS [facility]; Protocol Last Admin: 04/03/18 22:02 Dose: 12.5 mg Spironolactone (Aldactone) 25 mg PO DAILY [facility] Last Admin: 04/03/18 09:41 Dose: 25 mg Thiamine HCl (Vitamin B1 Tab) 100 mg PO DAILY [facility] Last Admin: 04/03/18 09:41 Dose: 100 mg - Labs Labs: 04/04/18 06:30 04/03/18 08:15 PT 11.1 SECONDS (9.4-12.5) 03/30/18 23:30 INR 0.97 03/30/18 23:30 APTT 32.0 Seconds (25.1-36.5) 03/30/18 23:30 - Additional Findings Additional findings: - Constitutional Appears: Well, No Acute Distress, Unkempt - Head Exam Head Exam: ATRAUMATIC, NORMAL INSPECTION, NORMOCEPHALIC - Eye Exam Eye Exam: EOMI, PERRL - ENT Exam ENT Exam: Mucous Membranes Dry - Respiratory Exam Respiratory Exam: Clear to Auscultation Bilateral, NORMAL BREATHING PATTERN - Cardiovascular Exam Cardiovascular Exam: REGULAR RHYTHM, RRR, +S1, S2. absent: Murmur - GI/Abdominal Exam GI & Abdominal Exam: Normal Bowel Sounds, Soft. absent: Tenderness, Rebound, Distended - Extremities Exam Extremities exam: Positive for: full ROM Additional comments: erythema and fluctuance on LLE second toe with no drainage - Neurological Exam Neurological exam: Altered, Oriented x3, CN II-XII Intact - Skin Skin Exam: Dry, Intact, Warm Assessment and Plan - Assessment and Plan (Free Text) Assessment: 72 year old Occitan speaking female with past medical history hypertension, facial palsy, TIA, glaucoma, cirrhosis, osteoporosis, colitis, gastritis, UTI, anxiety, depression, panic disorder, and urinary retention presents with abdominal pain and alcohol withdrawal. Patient agreeable to TCU discharge once medically clear.
[2018-04-04 07:21] LABS: ALB/GLOB RATIO 1.1 (1.1-1.8); ALBUMIN 3.6 g/dL (3.0-4.8); ALT/SGPT 70 U/L (7-56); AST/SGOT 114 U/L (14-36); BLOOD UREA NITROGEN 14 mg/dL (7-21); CALCIUM 9.1 mg/dL (8.4-10.5); GFR NON-AFRICAN AMERICAN > 60
--- NOTE | 2018-04-04 09:30 | CP.PCM.PN ---
Subjective - Date & Time of Evaluation Date of Evaluation: 04/04/18 Time of Evaluation: 09:30 - Subjective Subjective: Podiatry progress note for Dr. Galvan/Steven 72 year old somnolent, AAOx2 at bedside, and Romansh speaking female with past medical history of hypertension, facial palsy, TIA, glaucoma, cirrhosis, osteoporosis, colitis, gastritis, UTI, anxiety, depression, panic disorder, and urinary retention presents with left foot second digit abscess. Denies acute overnight events. Denies f/n/v/sob/cp. Objective - Vital Signs/Intake and Output Vital Signs (last 24 hours): Temp Pulse Resp BP Pulse Ox 97.9 F 92 H 19 102/61 963 H 04/04/18 08:35 04/04/18 08:35 04/04/18 08:35 04/04/18 08:35 04/04/18 08:35 Intake and Output: 04/04/18 04/04/18 06:59 18:59 Intake Total 180 Output Total 400 Balance -220 - Medications Medications: Current Medications Al Hydrox/Mg Hydrox/Simethicone (Maalox Plus 30 Ml) 30 ml PO DAILY PRN PRN Reason: Indigestion / Heartburn Aspirin (Aspirin Chewable) 81 mg PO DAILY [facility] Last Admin: 04/03/18 09:41 Dose: 81 mg Folic Acid (Folic Acid) 1 mg PO DAILY [facility] Last Admin: 04/03/18 09:41 Dose: 1 mg Ampicillin Sodium/Sulbactam (Sodium 3 gm/ Sodium Chloride) 100 mls @ 200 mls/hr IVPB Q6 [facility]; Protocol Last Admin: 04/04/18 05:01 Dose: 200 mls/hr Vancomycin HCl (Vancomycin 1gm) 1 gm in 250 mls @ 167 mls/hr IVPB DAILY [facility]; Protocol Last Admin: 04/03/18 09:41 Dose: 167 mls/hr Ketorolac Tromethamine (Toradol) 15 mg IVP Q6 PRN PRN Reason: Pain, moderate (4-7) Last Admin: 04/04/18 04:58 Dose: 15 mg Lorazepam (Ativan) 1 mg IVP Q4H PRN; Protocol PRN Reason: Anxiety Last Admin: 04/04/18 04:44 Dose: 1 mg Metoprolol Tartrate (Lopressor) 50 mg PO BRKDIN [facility] Multivitamins/Minerals (Therapeutic-M Tab) 1 tab PO 0800 [facility] Last Admin: 04/03/18 08:38 Dose: 1 tab Nystatin (Nystatin Oral Susp) 5 ml PO QID [facility] Last Admin: 04/03/18 22:02 Dose: 5 ml Ondansetron HCl (Zofran Inj) 4 mg IVP Q6H PRN PRN Reason: Nausea/Vomiting Last Admin: 04/01/18 04:14 Dose: 4 mg Pantoprazole Sodium (Protonix Ec Tab) 40 mg PO ACB [facility] Last Admin: 04/03/18 08:38 Dose: 40 mg Quetiapine Fumarate (Seroquel) 12.5 mg PO HS [facility]; Protocol Last Admin: 04/03/18 22:02 Dose: 12.5 mg Spironolactone (Aldactone) 25 mg PO DAILY [facility] Last Admin: 04/03/18 09:41 Dose: 25 mg Thiamine HCl (Vitamin B1 Tab) 100 mg PO DAILY [facility] Last Admin: 04/03/18 09:41 Dose: 100 mg - Labs Labs: 04/04/18 06:30 04/04/18 06:30 PT 11.1 SECONDS (9.4-12.5) 03/30/18 23:30 INR 0.97 03/30/18 23:30 APTT 32.0 Seconds (25.1-36.5) 03/30/18 23:30 - Constitutional Appears: Well, Non-toxic, No Acute Distress - Head Exam Head Exam: ATRAUMATIC, NORMOCEPHALIC - Eye Exam Eye Exam: Normal appearance Pupil Exam: NORMAL ACCOMODATION - ENT Exam ENT Exam: Mucous Membranes Moist - Extremities Exam Additional comments: Left lower extremity exam: Vascular: DP/PT 2/4, CFT <3 secs x 5, TG warm to warm ( warmer on the second digit), erythema and edema noted to the second digit neuro: protective sensation intact via ipswich / derm: wound noted at the previous site of incision and drainage, no active drainage, no fluctuance, no other open lesions, no IDM ortho: moderate pain upon palpation of the second digit, rigid hammertoe of the second digit Assessment and Plan - Assessment and Plan (Free Text) Assessment: 72 yo female seen and evaluated for left second digit abscess. Plan: Patient seen and evaluated Chart, labs and vitals reviewed Wound cultures f/u- gram positive cocci Left foot x-rays: no osseous erosions noted, no other acute Left foot MRI ordered MADAN/PVR ordered ESR/CRP ordered Left foot dressed with optifoam podiatry will continue to follow the patient
[2018-04-04] MEDS: Vancomycin 1gm in NS 250ml 1 GM/250 ML BAG IVPB SCH (10:52)
[2018-04-04] MEDS: Nystatin 100,000 Units/ml Oral Susp 5 ml UD PO SCH ×3 (10:53→17:16)
[2018-04-04] MEDS: Multivitamin With Minerals Tab PO SCH (10:54)
[2018-04-04] MEDS: Pantoprazole 40 mg EC Tab PO SCH (10:55)
--- NOTE | 2018-04-04 11:19 | US ---
PROCEDURE: Lower extremity MADAN exam HISTORY: Peripheral vascular disease with pain and claudication. PHYSICIAN(S): Johnathon Barreto MD. FINDINGS: The exam is somewhat limited distally by calcified vessels. The right resting MADAN is normal, 1.16. The left resting MADAN is not obtainable The brachial systolic pressures are symmetric. The high thigh pressures and waveforms are relatively normal. The calf PVR waveforms augment normally. No significant gradients are noted across the thighs. The ankle and metatarsal waveforms are relatively normal and symmetric. No significant pressure gradients are noted across the lower legs. IMPRESSION: 1. The PVR waveforms are normal and symmetric at all levels 2. The right resting MADAN is normal. The left resting MADAN is not obtainable due to noncompressible vessels
--- NOTE | 2018-04-04 12:23 | CP.PCM.CON ---
History of Present Illness - History of Present Illness History of Present Illness: Awake, alert, no distress Reason for consultation:Cardiac evaluation of rapid atrial fibrillation but spontaneously converted to normal sinus rhythm. complaints of chest pain on admission Brief history of present illness: A 72 year old female who presented to the ER with mid sternal chest pain. History of hypertension, facial palsy, TIA, glaucoma, cirrhosis, osteoporosis, colitis, gastritis, UTI, anxiety, depression, panic disorder, and urinary retention, 2 week history of drinking 2 pints of vodka daily. Seen and examined by me and Dr. Mg Review of Systems - Review of Systems All systems: reviewed and no additional remarkable complaints except Review of Systems: except from HPI Past Patient History - Infectious Disease Hx of Infectious Diseases: None - Past Social History Smoking Status: Former Smoker - CARDIAC Hx Hypertension: Yes - PULMONARY Hx Respiratory Disorders: No - NEUROLOGICAL Hx Neurological Disorder: Yes Other/Comment: facial palsy,left facial droop 2014 - HEENT Hx HEENT Problems: Yes Hx Glaucoma: Yes - RENAL Hx Chronic Kidney Disease: No - ENDOCRINE/METABOLIC Hx Endocrine Disorders: No - HEMATOLOGICAL/ONCOLOGICAL Hx Blood Disorders: Yes Hx Cirrhosis: Yes - INTEGUMENTARY Hx Dermatological Problems: No - MUSCULOSKELETAL/RHEUMATOLOGICAL Hx Falls: No - GASTROINTESTINAL Hx Gastrointestinal Disorders: Yes Hx Gall Bladder Disease: Yes (cholecystectomy) Hx Liver Failure: Yes (cirrhosis, liver biopsy 2013) Other/Comment: colitis, gastritis,abdominal pain - GENITOURINARY/GYNECOLOGICAL Hx Genitourinary Disorders: Yes Hx Urinary Tract Infection: Yes - PSYCHIATRIC Hx Psychophysiologic Disorder: Yes Hx Anxiety: Yes Hx Depression: Yes Hx Panic Symptoms: Yes Hx Substance Use: No Other/Comment: alcohol use, as per patient she drinks 3 bottles of rum daily - SURGICAL HISTORY Hx Cholecystectomy: Yes - ANESTHESIA Hx Anesthesia Reactions: No Hx Malignant Hyperthermia: No Meds Allergies/Adverse Reactions: Allergies Allergy/AdvReac Type Severity Reaction Status Date / Time No Known Allergies Allergy Verified 10/02/17 16:51 - Medications Medications: Current Medications Al Hydrox/Mg Hydrox/Simethicone (Maalox Plus 30 Ml) 30 ml PO DAILY PRN PRN Reason: Indigestion / Heartburn Aspirin (Aspirin Chewable) 81 mg PO DAILY [facility] Last Admin: 04/04/18 10:54 Dose: 81 mg Folic Acid (Folic Acid) 1 mg PO DAILY [facility] Last Admin: 04/04/18 10:55 Dose: 1 mg Ampicillin Sodium/Sulbactam (Sodium 3 gm/ Sodium Chloride) 100 mls @ 200 mls/hr IVPB Q6 [facility]; Protocol Last Admin: 04/04/18 05:01 Dose: 200 mls/hr Vancomycin HCl (Vancomycin 1gm) 1 gm in 250 mls @ 167 mls/hr IVPB DAILY [facility]; Protocol Last Admin: 04/04/18 10:52 Dose: 167 mls/hr Ketorolac Tromethamine (Toradol) 15 mg IVP Q6 PRN PRN Reason: Pain, moderate (4-7) Last Admin: 04/04/18 11:13 Dose: 15 mg Lorazepam (Ativan) 1 mg IVP Q4H PRN; Protocol PRN Reason: Anxiety Last Admin: 04/04/18 04:44 Dose: 1 mg Metoprolol Tartrate (Lopressor) 50 mg PO BRKDIN [facility] Multivitamins/Minerals (Therapeutic-M Tab) 1 tab PO 0800 [facility] Last Admin: 04/04/18 10:54 Dose: 1 tab Nystatin (Nystatin Oral Susp) 5 ml PO QID [facility] Last Admin: 04/04/18 10:53 Dose: 5 ml Ondansetron HCl (Zofran Inj) 4 mg IVP Q6H PRN PRN Reason: Nausea/Vomiting Last Admin: 04/01/18 04:14 Dose: 4 mg Pantoprazole Sodium (Protonix Ec Tab) 40 mg PO ACB [facility] Last Admin: 04/04/18 10:55 Dose: 40 mg Quetiapine Fumarate (Seroquel) 12.5 mg PO HS [facility]; Protocol Last Admin: 04/03/18 22:02 Dose: 12.5 mg Spironolactone (Aldactone) 25 mg PO DAILY [facility] Last Admin: 04/04/18 10:54 Dose: 25 mg Thiamine HCl (Vitamin B1 Tab) 100 mg PO DAILY [facility] Last Admin: 04/04/18 10:55 Dose: 100 mg Physical Exam - Constitutional Appears: Non-toxic, No Acute Distress - Head Exam Head Exam: NORMAL INSPECTION, NORMOCEPHALIC - Eye Exam Eye Exam: Normal appearance - ENT Exam ENT Exam: Mucous Membranes Moist - Respiratory Exam Respiratory Exam: Decreased Breath Sounds, NORMAL BREATHING PATTERN - Cardiovascular Exam Cardiovascular Exam: REGULAR RHYTHM, +S1, +S2 Additional comments: Telemetry NSR 70's - GI/Abdominal Exam GI & Abdominal Exam: Normal Bowel Sounds, Soft - Extremities Exam Additional comments: right foot dressing - Neurological Exam Neurological exam: Alert, Oriented x3 - Psychiatric Exam Psychiatric exam: Depressed - Skin Skin Exam: Dry, Normal Color, Warm Results - Vital Signs Recent Vital Signs: Last Vital Signs Temp 97.9 F 04/04/18 08:35 Pulse 89 04/04/18 10:00 Resp 19 04/04/18 08:35 BP 102/61 04/04/18 08:35 Pulse Ox 963 H 04/04/18 08:35 - Labs Result Diagrams: 04/04/18 06:30 04/04/18 06:30 Labs: Laboratory Results - last 24 hr 04/03/18 04/04/18 04/04/18 14:20 06:30 06:30 WBC 4.4 L RBC 3.48 L Hgb 10.8 L Hct 33.4 L MCV 96.0 MCH 31.0 MCHC 32.3 RDW 14.3 Plt Count 111 L MPV 10.4 Gran % 45.7 L Lymph % (Auto) 30.2 Ramsey % (Auto) 14.3 H Eos % (Auto) 8.9 H Baso % (Auto) 0.9 Gran # 2.01 Lymph # (Auto) 1.3 Ramsey # (Auto) 0.6 Eos # (Auto) 0.4 Baso # (Auto) 0.04 ESR Sodium 136 Potassium 3.6 Chloride 99 Carbon Dioxide 31 Anion Gap 10 BUN 14 Creatinine 0.6 L Est GFR ( Amer) > 60 Est GFR (Non-Af Amer) > 60 Random Glucose 98 Calcium 9.1 Total Bilirubin 0.5 AST 114 H ALT 70 H Alkaline Phosphatase 84 Total Protein 6.8 Albumin 3.6 Globulin 3.2 Albumin/Globulin Ratio 1.1 TSH 3rd Generation 4.17 04/04/18 08:10 WBC RBC Hgb Hct MCV MCH MCHC RDW Plt Count MPV Gran % Lymph % (Auto) Ramsey % (Auto) Eos % (Auto) Baso % (Auto) Gran # Lymph # (Auto) Ramsey # (Auto) Eos # (Auto) Baso # (Auto) ESR 54 H Sodium Potassium Chloride Carbon Dioxide Anion Gap BUN Creatinine Est GFR ( Amer) Est GFR (Non-Af Amer) Random Glucose Calcium Total Bilirubin AST ALT Alkaline Phosphatase Total Protein Albumin Globulin Albumin/Globulin Ratio TSH 3rd Generation Assessment & Plan - Assessment and Plan (Free Text) Assessment: A 72 year old female who presented to the ER with mid sternal chest pain. Poor historian. Chart reviewed. History of hypertension, facial palsy, TIA, glaucoma, cirrhosis, osteoporosis, colitis, gastritis, UTI, anxiety, depression, panic disorder, and urinary retention, 2 week history of drinking 2 pints of vodka daily. alcohol abuse, drinks 3 bottles of rum daily. Consult was called for short burst of atrial fibrillation at 140's then spontaneously converted to NSR. Denies chest pain now. Troponin on admission normal. EKG 04/03/18- normal sinus rhythm.80's. no ischemia. Echo on 01/29/18 showed LVEF 55%, trace AR,moderate MR, moderate TR, RVSP 59 mmHg. For outpatient stress test . Contact isolation for positive MRSA on right foot wound. Plan: No distress, contact isolation Heart rate and blood pressure controlled Continue Lopressor, so far NSR on telemetry On ASA 81 mg daily, Lopressor 50 mg BID, Aldactone 25 mg daily Continue current treatment Continue current medications Lipid panel Will follow up Further recommendation during hospital course Plan and treatment discussed with Dr. Mg Thank you Dr. Harley for the opportunity of taking care of Quin Sam - Date & Time Date: 04/04/18 Time: 07:10
--- NOTE | 2018-04-04 13:46 | CP.PCM.APN ---
Subjective - Date & Time of Evaluation Date of Evaluation: 04/04/18 Time of Evaluation: 12:00 - Subjective Subjective: Pt. seen and examined at bedside. Complains of epigastric discomfort, denied nausea, vomitting, denied shortness of breath, chest pain, palpitations, denied foot pain. Dressing is noted to left foot, 2 nd toe. Review of Systems - Constitutional Constitutional: As Per HPI - EENT Eyes: As Per HPI Nose/Mouth/Throat: As Per HPI - Breasts Breasts: As Per HPI - Respiratory Respiratory: As Per HPI - Genitourinary Genitourinary: As Per HPI - Musculoskeletal Musculoskeletal: As Per HPI - Integumentary Integumentary: As Per HPI - Neurological Neurological: As Per HPI Objective - Vital Signs/Intake and Output Vital Signs (last 24 hours): Temp Pulse Resp BP Pulse Ox 97.9 F 89 19 102/61 963 H 04/04/18 08:35 04/04/18 10:00 04/04/18 08:35 04/04/18 08:35 04/04/18 08:35 Intake and Output: 04/04/18 04/04/18 06:59 18:59 Intake Total 180 Output Total 400 Balance -220 - Medications Medications: Current Medications Al Hydrox/Mg Hydrox/Simethicone (Maalox Plus 30 Ml) 30 ml PO DAILY PRN PRN Reason: Indigestion / Heartburn Aspirin (Aspirin Chewable) 81 mg PO DAILY [facility] Last Admin: 04/04/18 10:54 Dose: 81 mg Folic Acid (Folic Acid) 1 mg PO DAILY [facility] Last Admin: 04/04/18 10:55 Dose: 1 mg Ampicillin Sodium/Sulbactam (Sodium 3 gm/ Sodium Chloride) 100 mls @ 200 mls/hr IVPB Q6 [facility]; Protocol Last Admin: 04/04/18 05:01 Dose: 200 mls/hr Vancomycin HCl (Vancomycin 1gm) 1 gm in 250 mls @ 167 mls/hr IVPB DAILY [facility]; Protocol Last Admin: 04/04/18 10:52 Dose: 167 mls/hr Ketorolac Tromethamine (Toradol) 15 mg IVP Q6 PRN PRN Reason: Pain, moderate (4-7) Last Admin: 04/04/18 11:13 Dose: 15 mg Lorazepam (Ativan) 1 mg IVP Q4H PRN; Protocol PRN Reason: Anxiety Last Admin: 04/04/18 04:44 Dose: 1 mg Metoprolol Tartrate (Lopressor) 50 mg PO BRKDIN [facility] Multivitamins/Minerals (Therapeutic-M Tab) 1 tab PO 0800 [facility] Last Admin: 04/04/18 10:54 Dose: 1 tab Nystatin (Nystatin Oral Susp) 5 ml PO QID [facility] Last Admin: 04/04/18 10:53 Dose: 5 ml Ondansetron HCl (Zofran Inj) 4 mg IVP Q6H PRN PRN Reason: Nausea/Vomiting Last Admin: 04/01/18 04:14 Dose: 4 mg Pantoprazole Sodium (Protonix Ec Tab) 40 mg PO ACB [facility] Last Admin: 04/04/18 10:55 Dose: 40 mg Quetiapine Fumarate (Seroquel) 25 mg PO HS [facility]; Protocol Spironolactone (Aldactone) 25 mg PO DAILY [facility] Last Admin: 04/04/18 10:54 Dose: 25 mg Thiamine HCl (Vitamin B1 Tab) 100 mg PO DAILY [facility] Last Admin: 04/04/18 10:55 Dose: 100 mg - Labs Labs: 04/04/18 06:30 04/04/18 06:30 PT 11.1 SECONDS (9.4-12.5) 03/30/18 23:30 INR 0.97 03/30/18 23:30 APTT 32.0 Seconds (25.1-36.5) 03/30/18 23:30 - Constitutional Appears: No Acute Distress - Head Exam Head Exam: NORMOCEPHALIC - Eye Exam Eye Exam: Normal appearance - ENT Exam ENT Exam: Mucous Membranes Moist, Normal Exam - Neck Exam Neck Exam: Full ROM, Normal Inspection - Respiratory Exam Respiratory Exam: Clear to Ausculation Bilateral - Cardiovascular Exam Cardiovascular Exam: RRR, +S1, +S2 - GI/Abdominal Exam GI & Abdominal Exam: Soft, Tenderness, Normal Bowel Sounds - Rectal Exam Rectal Exam: Deferred - Extremities Exam Extremities Exam: Full ROM Additional comments: 72 year old Thai speaking female with past medical history hypertension, facial palsy, TIA, glaucoma, cirrhosis, osteoporosis, colitis, gastritis, UTI, anxiety, depression, panic disorder, and urinary retention presents with abdominal pain and alcohol withdrawal. Plan: 1. Epigastric pain Improved. 2. ETOH Withdrawal CIWA Improved, continue Ativan prn 3. UTI with Pos. MRSA Continue Vancomycin and Ampicillin IV 4. Rapid Atrial fibrillation now converted to sinus rhythm Cardiology recommended continue Beta [place], Aspirin, cleared for DC to [facility]. 5. Abscess right foot second toe Cx resulted MRSA xray negative for osteo. Continue dressing as per podiatry MRI pending to R/o Osteomyelitis, if negative cleared for DC to [facility], if positive will need treatment with IV Antibx 4-6weeks, via PICC Pt recommended TCU, [facility]ITHA/YONY for DC planning to TCU. Will continue to monitor clinical status and follow closely
[2018-04-04] MEDS ORDERED: Potassium Chloride 20 mEq ER Tab PO ONE (14:34)
--- NOTE | 2018-04-04 14:35 | MRI ---
Date of service: 04/04/2018 PROCEDURE: MRI of the left foot without contrast HISTORY: assess osteo COMPARISON: X-rays dated 04/02/2018 TECHNIQUE: MRI of the left foot was performed in multiple planes using multiple pulse sequences. FINDINGS: The bone marrow signal intensity is normal with no evidence of osteomyelitis. There is no subcutaneous edema or muscular edema. IMPRESSION: No evidence of osteomyelitis
--- NOTE | 2018-04-04 14:59 | CP.PCM.DIS ---
<Michelle Seymour L - Last Filed: 04/04/18 19:26> Provider - Provider Date of Admission: 03/30/18 22:45 Attending physician: Lise Harley MD Primary care physician: Dr. Cheng Consults: 04/01/18 10:40 Psychiatry Consult Routine Comment: Consulting Provider: Pam Mathews Consulting Physician: Pam Mathews Reason for Consult: anxiety, depression 04/02/18 11:12 Podiatry Consult Routine Comment: Consulting Provider: Arnulfo Soni Consulting Physician: Arnulfo Soni Reason for Consult: abscess 04/02/18 12:52 Physician Consult Routine Comment: Consulting Provider: Michelle Galvan Consulting Physician: Michelle Galvan Reason for Consult: left toe abscess 04/03/18 11:16 TCU [Evaluation for TRCU] Routine Comment: Physician Instructions: Reason For Exam: deconditioned 04/03/18 13:11 Cardiology Consult Routine Comment: Consulting Provider: Lise Mg Consulting Physician: Lise Mg Reason for Consult: a. fib ? 04/04/18 01:16 Nursing Referral for Wound Care Routine Comment: Physician Instructions: Reason For Exam: L 2nd toe Time Spent in preparation of Discharge (in minutes): 35 Diagnosis - Discharge Diagnosis (1) Abdominal pain Status: Acute (2) Alcohol abuse Status: Chronic Priority: Medium (3) Alcohol withdrawal Status: Resolved (4) Gastritis Status: Chronic Priority: High Hospital Course - Lab Results Lab Results: Micro Results 04/02/18 15:40 Foot - Left Gram Stain - Final 04/02/18 15:40 Foot - Left Wound Culture - Final Methicillin Resistant S Aureus 03/30/18 17:23 Urine Urine Culture - Final Methicillin Resistant S Aureus Most Recent Lab Values WBC 4.4 10^3/uL (4.5-11.0) L 04/04/18 06:30 RBC 3.48 10^6/uL (3.5-6.1) L 04/04/18 06:30 Hgb 10.8 g/dL (12.0-16.0) L 04/04/18 06:30 Hct 33.4 % (36.0-48.0) L 04/04/18 06:30 MCV 96.0 fl (80.0-105.0) 04/04/18 06:30 MCH 31.0 pg (25.0-35.0) 04/04/18 06:30 MCHC 32.3 g/dl (31.0-37.0) 04/04/18 06:30 RDW 14.3 % (11.5-14.5) 04/04/18 06:30 Plt Count 111 10^3/uL (120.0-450.0) L 04/04/18 06:30 MPV 10.4 fl (7.0-11.0) 04/04/18 06:30 Gran % 45.7 % (50.0-68.0) L 04/04/18 06:30 Lymph % (Auto) 30.2 % (22.0-35.0) 04/04/18 06:30 [place] % (Auto) 14.3 % (1.0-6.0) H 04/04/18 06:30 Eos % (Auto) 8.9 % (1.5-5.0) H 04/04/18 06:30 Baso % (Auto) 0.9 % (0.0-3.0) 04/04/18 06:30 Gran # 2.01 (1.4-6.5) 04/04/18 06:30 Lymph # (Auto) 1.3 (1.2-3.4) 04/04/18 06:30 [place] # (Auto) 0.6 (0.1-0.6) 04/04/18 06:30 Eos # (Auto) 0.4 (0.0-0.7) 04/04/18 06:30 Baso # (Auto) 0.04 K/mm3 (0.0-2.0) 04/04/18 06:30 ESR 54 mm/hr (0.0-20.0) H 04/04/18 08:10 PT 11.1 SECONDS (9.4-12.5) 03/30/18 23:30 INR 0.97 03/30/18 23:30 APTT 32.0 Seconds (25.1-36.5) 03/30/18 23:30 Sodium 136 mmol/L (132-148) 04/04/18 06:30 Potassium 3.6 mmol/L (3.6-5.0) 04/04/18 06:30 Chloride 99 mmol/L (98-107) 04/04/18 06:30 Carbon Dioxide 31 mmol/L (21-33) 04/04/18 06:30 Anion Gap 10 (10-20) 04/04/18 06:30 BUN 14 mg/dL (7-21) 04/04/18 06:30 Creatinine 0.6 mg/dl (0.7-1.2) L 04/04/18 06:30 Est GFR ( Amer) > 60 04/04/18 06:30 Est GFR (Non-Af Amer) > 60 04/04/18 06:30 Random Glucose 98 mg/dL (70-110) 04/04/18 06:30 Hemoglobin A1c 5.0 % (4.2-6.5) 04/04/18 08:10 Calcium 9.1 mg/dL (8.4-10.5) 04/04/18 06:30 Phosphorus 3.3 mg/dL (2.5-4.5) 04/02/18 05:30 Magnesium 2.1 mg/dL (1.7-2.2) 04/02/18 05:30 Total Bilirubin 0.5 mg/dL (0.2-1.3) 04/04/18 06:30 AST 114 U/L (14-36) H 04/04/18 06:30 ALT 70 U/L (7-56) H 04/04/18 06:30 Alkaline Phosphatase 84 U/L (38-126) 04/04/18 06:30 Total Creatine Kinase 152 U/L (35-230) 03/30/18 18:10 Troponin I 0.01 ng/mL 03/31/18 07:00 C-React Prot High Sens 4.75 mg/L (1.00-3.00) H 04/04/18 08:10 Total Protein 6.8 g/dL (5.8-8.3) 04/04/18 06:30 Albumin 3.6 g/dL (3.0-4.8) 04/04/18 06:30 Globulin 3.2 gm/dL 04/04/18 06:30 Albumin/Globulin Ratio 1.1 (1.1-1.8) 04/04/18 06:30 Lipase 148 U/L (23-300) 03/30/18 18:10 TSH 3rd Generation 4.17 mIU/mL (0.46-4.68) 04/03/18 14:20 Urine Color Yellow (YELLOW) 03/30/18 17:23 Urine Appearance Slight-cloudy (CLEAR) 03/30/18 17:23 Urine pH 6.0 (4.7-8.0) 03/30/18 17:23 Ur Specific [place] 1.025 (1.005-1.035) 03/30/18 17:23 Urine Protein 30 mg/dL (<30 mg/dL) H 03/30/18 17:23 Urine Glucose (UA) Negative mg/dL (NEGATIVE) 03/30/18 17:23 Urine Ketones 15 mg/dL (NEGATIVE) H 03/30/18 17:23 Urine Blood Small (NEGATIVE) H 03/30/18 17:23 Urine Nitrate Negative (NEGATIVE) 03/30/18 17:23 Urine Bilirubin Negative (NEGATIVE) 03/30/18 17:23 Urine Urobilinogen 0.2 E.U./dL (<1 E.U./dL) 03/30/18 17:23 Ur Leukocyte Esterase Negative Harriet/uL (NEGATIVE) 03/30/18 17:23 Urine RBC 0 - 2 /hpf (0-2) 03/30/18 17:23 Urine WBC Negative /hpf (0-6) 03/30/18 17:23 Ur Epithelial Cells 1 - 3 /hpf (0-5) 03/30/18 17:23 Hyaline Casts 0 - 2 /hpf (NONE) 03/30/18 17:23 Urine Osmolality 328 mosm/kg (300-1000) 03/31/18 17:15 Ur Random Sodium 74 meq/L 03/31/18 17:15 Urine Opiates Screen Negative (NEGATIVE) 03/31/18 07:35 Urine Methadone Screen Negative (NEGATIVE) 03/31/18 07:35 Ur Barbiturates Screen Negative (NEGATIVE) 03/31/18 07:35 Ur Phencyclidine Scrn Negative (NEGATIVE) 03/31/18 07:35 Ur Amphetamines Screen Negative (NEGATIVE) 03/31/18 07:35 U Benzodiazepines Scrn Negative (NEGATIVE) 03/31/18 07:35 U Oth Cocaine Metabols Negative (NEGATIVE) 03/31/18 07:35 U Cannabinoids Screen Negative (NEGATIVE) 03/31/18 07:35 Alcohol, Quantitative 201 mg/dL (0-10) H 03/30/18 18:10 HIV 1&2 Ag/Ab, 4th Gen Nonreactive (Nonreactive) 04/01/18 10:40 - Hospital Course Hospital Course: On admission: 72 year old somnolent, AAOx2 at bedside, and Beninese speaking female with past medical history of hypertension, facial palsy, TIA, glaucoma, cirrhosis, osteoporosis, colitis, gastritis, UTI, anxiety, depression, panic disorder, and urinary retention presents with 2 week history of drinking 2 pints of vodka daily and one week of loss of appetite after fighting with . Patient has also had numerous falls after having sensation of not being able to walk. Patient reported dizziness, tremors, tinnitus, but no hearing loss. Patient has had a headache for the last 3 days, throat pain for 3 days. Patient also had nausea and vomiting for the past 2 days. Patient has had 10 episodes of vomiting with blood mixed with normal vomit. Patient also reports numerous episodes of watery stool mixed with blood. Patient reports numbness/tingling of fingers/toes. Patient currently denies chest pain, heart palpitations, and shortness of breath. 12-point ROS was unreliable due to patient's somnolence and mental status. During hospital stay: Patient had serum alcohol level 201 on admission. Patient had negative UDS. Ativan PRN was given with multivitamin, thiamine, folic acid. Librium and valium due to cirrhosis. Cessation counseling was provided. Patient also complained of atypical chest pain. EKG showed sinus tachycardia at 110 bpm. Troponins were negative x3. Patient was given, aspirin, metoprolol, spironolactone, toradol PRN for pain. Patient also presented of abdominal pain,. Abdominal CT showed no acute abdominal or pelvic pathology. hepatomegaly and fatty liver. colonic diverticulosis with no evidence of diverticulitis, fibroid uterus. Previous abdominal ultrasound from two months prior showed increased echogenicity of liver parenchyma, no mass, no intrahepatic bile duct dilation. Patient was given Protonix scheduled and Maalox PRN. Patient was started on seroquel as per psychiatry recommendations for anxiety, depression, and insomnia. Patient was also noted to have a toe abscess. Podiatry was consulted. Patient underwent I&D with no complications. Left foot xray was negative for acute findings. MRI was negative for osteomyelitis. Wound culture grew MRSA. Patient also had an episode of afib with monitor noting tachycardia into 130s that spontaneously resolved to NSR. Cardiology was consulted. TSH was noted to be in normal range. Patient was optimized for discharge and discharged to TCU for further rehabilitation. Please see EMR for full summary. - Date & Time of H&P Date of H&P: 03/31/18 Time of H&P: 02:14 Discharge Exam - Additional Findings Additional findings: - Constitutional Appears: Well, No Acute Distress, Unkempt - Head Exam Head Exam: ATRAUMATIC, NORMAL INSPECTION, NORMOCEPHALIC - Eye Exam Eye Exam: EOMI, PERRL - ENT Exam ENT Exam: Mucous Membranes Dry - Respiratory Exam Respiratory Exam: Clear to Auscultation Bilateral, NORMAL BREATHING PATTERN - Cardiovascular Exam Cardiovascular Exam: REGULAR RHYTHM, RRR, +S1, S2. absent: Murmur - GI/Abdominal Exam GI & Abdominal Exam: Normal Bowel Sounds, Soft. absent: Tenderness, Rebound, Distended - Extremities Exam Extremities exam: Positive for: full ROM Additional comments: wound on LLE second toe with erythema, no drainage or fluctuance, dressing C/D/I - Neurological Exam Neurological exam: Altered, Oriented x3, CN II-XII Intact - Skin Skin Exam: Dry, Intact, Warm Discharge Plan - Follow Up Plan Condition: FAIR Disposition: TRANSF TO SNF Patient education suggested?: Yes Instructions: Alcohol Withdrawal (DC), Chest Pain (ED) Additional Instructions: Patient is discharged to TCU. Continue current medication and treatment regimens. <Lise Harley - Last Filed: 04/05/18 16:05> Provider - Provider Date of Admission: 03/30/18 22:45 Attending physician: Lise Harley MD Consults: 04/01/18 10:40 Psychiatry Consult Routine Comment: Consulting Provider: Pam Mathews Consulting Physician: Pam Mathews Reason for Consult: anxiety, depression 04/02/18 11:12 Podiatry Consult Routine Comment: Consulting Provider: Arnulfo Soni Consulting Physician: Arnulfo Soni Reason for Consult: abscess 04/02/18 12:52 Physician Consult Routine Comment: Consulting Provider: Michelle Galvan Consulting Physician: Michelle Galvan Reason for Consult: left toe abscess 04/03/18 11:16 TCU [Evaluation for TRCU] Routine Comment: Physician Instructions: Reason For Exam: deconditioned 04/03/18 13:11 Cardiology Consult Routine Comment: Consulting Provider: Lise Mg Consulting Physician: Lise Mg Reason for Consult: a. fib ? 04/04/18 01:16 Nursing Referral for Wound Care Routine Comment: Physician Instructions: Reason For Exam: L 2nd toe Hospital Course - Lab Results Lab Results: Micro Results 04/02/18 15:40 Foot - Left Gram Stain - Final 04/02/18 15:40 Foot - Left Wound Culture - Final Methicillin Resistant S Aureus 03/30/18 17:23 Urine Urine Culture - Final Methicillin Resistant S Aureus Most Recent Lab Values WBC 4.4 10^3/uL (4.5-11.0) L 04/04/18 06:30 RBC 3.48 10^6/uL (3.5-6.1) L 04/04/18 06:30 Hgb 10.8 g/dL (12.0-16.0) L 04/04/18 06:30 Hct 33.4 % (36.0-48.0) L 04/04/18 06:30 MCV 96.0 fl (80.0-105.0) 04/04/18 06:30 MCH 31.0 pg (25.0-35.0) 04/04/18 06:30 MCHC 32.3 g/dl (31.0-37.0) 04/04/18 06:30 RDW 14.3 % (11.5-14.5) 04/04/18 06:30 Plt Count 111 10^3/uL (120.0-450.0) L 04/04/18 06:30 MPV 10.4 fl (7.0-11.0) 04/04/18 06:30 Gran % 45.7 % (50.0-68.0) L 04/04/18 06:30 Lymph % (Auto) 30.2 % (22.0-35.0) 04/04/18 06:30 [place] % (Auto) 14.3 % (1.0-6.0) H 04/04/18 06:30 Eos % (Auto) 8.9 % (1.5-5.0) H 04/04/18 06:30 Baso % (Auto) 0.9 % (0.0-3.0) 04/04/18 06:30 Gran # 2.01 (1.4-6.5) 04/04/18 06:30 Lymph # (Auto) 1.3 (1.2-3.4) 04/04/18 06:30 [place] # (Auto) 0.6 (0.1-0.6) 04/04/18 06:30 Eos # (Auto) 0.4 (0.0-0.7) 04/04/18 06:30 Baso # (Auto) 0.04 K/mm3 (0.0-2.0) 04/04/18 06:30 ESR 54 mm/hr (0.0-20.0) H 04/04/18 08:10 PT 11.1 SECONDS (9.4-12.5) 03/30/18 23:30 INR 0.97 03/30/18 23:30 APTT 32.0 Seconds (25.1-36.5) 03/30/18 23:30 Sodium 136 mmol/L (132-148) 04/04/18 06:30 Potassium 3.6 mmol/L (3.6-5.0) 04/04/18 06:30 Chloride 99 mmol/L (98-107) 04/04/18 06:30 Carbon Dioxide 31 mmol/L (21-33) 04/04/18 06:30 Anion Gap 10 (10-20) 04/04/18 06:30 BUN 14 mg/dL (7-21) 04/04/18 06:30 Creatinine 0.6 mg/dl (0.7-1.2) L 04/04/18 06:30 Est GFR ( Amer) > 60 04/04/18 06:30 Est GFR (Non-Af Amer) > 60 04/04/18 06:30 Random Glucose 98 mg/dL (70-110) 04/04/18 06:30 Hemoglobin A1c 5.0 % (4.2-6.5) 04/04/18 08:10 Calcium 9.1 mg/dL (8.4-10.5) 04/04/18 06:30 Phosphorus 3.3 mg/dL (2.5-4.5) 04/02/18 05:30 Magnesium 2.1 mg/dL (1.7-2.2) 04/02/18 05:30 Total Bilirubin 0.5 mg/dL (0.2-1.3) 04/04/18 06:30 AST 114 U/L (14-36) H 04/04/18 06:30 ALT 70 U/L (7-56) H 04/04/18 06:30 Alkaline Phosphatase 84 U/L (38-126) 04/04/18 06:30 Total Creatine Kinase 152 U/L (35-230) 03/30/18 18:10 Troponin I 0.01 ng/mL 03/31/18 07:00 C-React Prot High Sens 4.75 mg/L (1.00-3.00) H 04/04/18 08:10 Total Protein 6.8 g/dL (5.8-8.3) 04/04/18 06:30 Albumin 3.6 g/dL (3.0-4.8) 04/04/18 06:30 Globulin 3.2 gm/dL 04/04/18 06:30 Albumin/Globulin Ratio 1.1 (1.1-1.8) 04/04/18 06:30 Lipase 148 U/L (23-300) 03/30/18 18:10 TSH 3rd Generation 4.17 mIU/mL (0.46-4.68) 04/03/18 14:20 Urine Color Yellow (YELLOW) 03/30/18 17:23 Urine Appearance Slight-cloudy (CLEAR) 03/30/18 17:23 Urine pH 6.0 (4.7-8.0) 03/30/18 17:23 Ur Specific [place] 1.025 (1.005-1.035) 03/30/18 17:23 Urine Protein 30 mg/dL (<30 mg/dL) H 03/30/18 17:23 Urine Glucose (UA) Negative mg/dL (NEGATIVE) 03/30/18 17:23 Urine Ketones 15 mg/dL (NEGATIVE) H 03/30/18 17:23 Urine Blood Small (NEGATIVE) H 03/30/18 17:23 Urine Nitrate Negative (NEGATIVE) 03/30/18 17:23 Urine Bilirubin Negative (NEGATIVE) 03/30/18 17:23 Urine Urobilinogen 0.2 E.U./dL (<1 E.U./dL) 03/30/18 17:23 Ur Leukocyte Esterase Negative [place]riet/uL (NEGATIVE) 03/30/18 17:23 Urine RBC 0 - 2 /hpf (0-2) 03/30/18 17:23 Urine WBC Negative /hpf (0-6) 03/30/18 17:23 Ur Epithelial Cells 1 - 3 /hpf (0-5) 03/30/18 17:23 Hyaline Casts 0 - 2 /hpf (NONE) 03/30/18 17:23 Urine Osmolality 328 mosm/kg (300-1000) 03/31/18 17:15 Ur Random Sodium 74 meq/L 03/31/18 17:15 Urine Opiates Screen Negative (NEGATIVE) 03/31/18 07:35 Urine Methadone Screen Negative (NEGATIVE) 03/31/18 07:35 Ur Barbiturates Screen Negative (NEGATIVE) 03/31/18 07:35 Ur Phencyclidine Scrn Negative (NEGATIVE) 03/31/18 07:35 Ur Amphetamines Screen Negative (NEGATIVE) 03/31/18 07:35 U Benzodiazepines Scrn Negative (NEGATIVE) 03/31/18 07:35 U Oth Cocaine Metabols Negative (NEGATIVE) 03/31/18 07:35 U Cannabinoids Screen Negative (NEGATIVE) 03/31/18 07:35 Alcohol, Quantitative 201 mg/dL (0-10) H 03/30/18 18:10 HIV 1&2 Ag/Ab, 4th Gen Nonreactive (Nonreactive) 04/01/18 10:40 Attending/Attestation - Attestation I have personally seen and examined this patient.: Yes I have fully participated in the care of the patient.: Yes I have reviewed all pertinent clinical information, including history, physical exam and plan: Yes Notes (Text): 04/05/18 16:04 Medical record note made by the resident after discussion with my direction and input after the patient was personally seen and examined by me. I have reviewed the chart and agree that the record accurately reflects by personal performance of the history, physical exam, data review, and medical decision-making, in the course for the patient. I have also personally directed the plan of care. 72 year old Beninese speaking female with past medical history of hypertension, facial palsy, TIA, glaucoma, cirrhosis, osteoporosis, colitis, gastritis, UTI, anxiety, depression, panic disorder, and urinary retention presenting with 2 week history of drinking 2 pints of vodka daily and one week of loss of appetite. Patient was also s/p numerous falls. Patient was admitted in inpatient initially and was treated for alcohol withdrawal. Patient epigatric pain is due to Peptic ulcer disease, has responded well to PPI. EKG was negative for ischemic changes, serial troponins were normal. Abdominal CT showed no acute abdominal or pelvic pathology, hepatomegaly and fatty liver, colonic diverticulosis with no evidence of diverticulitis, fibroid uterus. Previous abdominal ultrasound from two months prior showed increased echogenicity of liver parenchyma, no mass, no intrahepatic bile duct dilation. Patient was started on seroquel as per psychiatry recommendations for anxiety, depression, and insomnia. Patient was also noted to have a toe abscess. Podiatry was consulted. Patient underwent I&D with no complications. Left foot xray was negative for acute findings. MRI was negative for osteomyelitis. Wound culture grew MRSA. Patient also had an episode of afib with monitor noting tachycardia into 130s that spontaneously resolved to NSR. Cardiology was consulted. TSH was noted to be in normal range. Patient Echo results were reviewd, not on anticoagulation due to heavy alcohol abuse and H/O recurrent. Patient has been evaluated by PT and will be discharged to TCU for rehabilitation. Management plan was discussed in detail with patient. Education was provided
[2018-04-04] MEDS ORDERED: Influenza Vaccine 60 mcg/0.5 mL SYR (4YR UP) IM ONE (15:38)
[2018-04-04] MEDS ORDERED: Pneumococcal 23-Valent Vaccine IM ONE (15:40)
[2018-04-04 18:04] VITALS: BP 110/60; PULSE 90; RESP 20; TEMP 97.2; O2SAT 97
--- NOTE | 2018-04-04 19:35 | PN ---
DATE: 04/04/2018 This note is in addition to dictated by the nurse practitioner, Chayito Castro. REASON FOR CONSULTATION: Followup atrial fibrillation, paroxysmal, converted to normal sinus; history of alcohol abuse. SUBJECTIVE: In summary, a 72-year-old female with history of hypertension, facial palsy, TIA, glaucoma, cirrhosis, osteoporosis, gastritis, heavy alcohol abuse, admitting blood alcohol level 201, admitted with atypical chest pain, elevated blood alcohol level and atrial fibrillation, converted to normal sinus. Troponin remained flat x3. EKG showed normal sinus. In-between, the patient gets sinus tachycardia and atrial fibrillation, now converted back to normal sinus. Past history is also significant for cholecystectomy 4 to 5 years ago, history of drainage of pilonidal cyst in the past. The patient claims that she is drinking heavily, because abandoned her with other girl as mentioned. IMPRESSION: Echo dated 01/29/2018 showed ejection fraction of 55%, trace AR, trace MR, moderate TR, systolic pressure of 59. This paroxysmal atrial fibrillation is most likely secondary to alcohol abuse, admitting blood alcohol level as mentioned 201. RECOMMENDATIONS: Monitor heart rate. Monitor the blood pressure. We suggest to have a stress test as an outpatient for the risk stratification because of the lifestyle. Discussed with the patient, and the patient agreed. We will proceed for stress test as an outpatient. We will continue low-dose beta-amee. No further cardiac workup is designed at this time, but definitely because of the risk stratification lifestyle, suggested stress test as an outpatient. We will monitor electrolytes and supplement as needed. Today, potassium 3.6. We will give 40 of K-Dur. Thank you Dr. Huitron for providing us the opportunity in taking care of the patient, Quin Sam. Lise Mg MD
== END 2018-04-04 17:51 | DRG 897 ==
LOC: ED 15:59 → ERH 22:45 → 3RNO 03-31 15:32
PROVIDERS: ADMIT Hospitalist; ATTEND Internal Medicine
PROC: 0H9NXZZ Drainage of Left Foot Skin, External Approach (ICD-10-PCS; principal; 2018-04-02)
PROC: 3E02340 Introduction of Influenza Vaccine into Muscle, Percutaneous Approach (ICD-10-PCS; 2018-04-04)
PROC: 3E0234Z Introduction of Serum, Toxoid and Vaccine into Muscle, Percutaneous Approach (ICD-10-PCS; 2018-04-04)
DX: F10.239 Alcohol dependence with withdrawal, unspecified (principal); L02.612 Cutaneous abscess of left foot; N39.0 Urinary tract infection, site not specified; B95.62 Methicillin resistant Staphylococcus aureus infection as the cause of diseases classified elsewhere; Y90.7 Blood alcohol level of 200-239 mg/100 ml; G51.0 Bell's palsy; K74.60 Unspecified cirrhosis of liver; I10 Essential (primary) hypertension; F41.0 Panic disorder [episodic paroxysmal anxiety]; K52.9 Noninfective gastroenteritis and colitis, unspecified; K29.70 Gastritis, unspecified, without bleeding; M81.0 Age-related osteoporosis without current pathological fracture; I48.0 Paroxysmal atrial fibrillation; H40.9 Unspecified glaucoma; F41.9 Anxiety disorder, unspecified; R63.0 Anorexia; F32.9 Major depressive disorder, single episode, unspecified; R07.0 Pain in throat; R07.2 Precordial pain; R00.0 Tachycardia, unspecified; R40.0 Somnolence; Z87.891 Personal history of nicotine dependence; Z86.73 Personal history of transient ischemic attack (TIA), and cerebral infarction without residual deficits; Z23 Encounter for immunization

== ENCOUNTER 2018-04-04 17:51 | Inpatient (IN) | payer MEDICARE, OTHER ==
[2018-04-04] MEDS: Nystatin 100,000 Units/ml Oral Susp 5 ml UD PO SCH (21:05)
[2018-04-05] MEDS ORDERED: Vancomycin 1gm in NS 250ml 1 GM/250 ML BAG IVPB SCH (06:00)
[2018-04-05] MEDS: Pantoprazole 40 mg EC Tab PO SCH (06:57)
--- NOTE | 2018-04-05 07:21 | CP.PCM.HP ---
<Michelle Seymour - Last Filed: 04/05/18 14:10> History of Present Illness - History of Present Illness History of Present Illness: Resident History & Physical for Hospitalist Service Patient is a 72 year old Austrian speaking female with past medical history of hypertension, facial palsy, TIA, glaucoma, cirrhosis, osteoporosis, colitis, gastritis, UTI, anxiety, depression, panic disorder, and urinary retention presenting with 2 week history of drinking 2 pints of vodka daily and one week of loss of appetite. Patient was also s/p numerous falls. Patient reported hea dache, dizziness, tremors, tinnitus, but no hearing loss. Patient had 10 episodes of vomiting with blood tinged vomit. Patient also reports numerous episodes of watery stools mixed with blood. Patient denies chest pain, heart palpitations, and shortness of breath. 12-point ROS was unreliable due to patient's somnolence and mental status. On admission patient had serum alcohol level 201, negative UDS. Ativan PRN was given with multivitamin, thiamine, folic acid. Librium and valium were held due to cirrhosis. Cessation counseling was provided. Patient also complained of atypical chest pain. EKG showed sinus tachycardia at 110 bpm. Troponins were negative x3. Patient was given, aspirin, metoprolol, spironolactone, toradol PRN for pain. Patient also presented of abdominal pain. Abdominal CT showed no acute abdominal or pelvic pathology, hepatomegaly and fatty liver, colonic diverticulosis with no evidence of diverticulitis, fibroid uterus. Previous abdominal ultrasound from two months prior showed increased echogenicity of liver parenchyma, no mass, no intrahepatic bile duct dilation. Patient was given Protonix scheduled and Maalox PRN. Patient was started on seroquel as per psychiatry recommendations for anxiety, depression, and insomnia. Patient was also noted to have a toe abscess. Podiatry was consulted. Patient underwent I&D with no complications. Left foot xray was negative for acute findings. MRI was negative for osteomyelitis. Wound culture grew MRSA. Patient also had an episode of afib with monitor noting tachycardia into 130s that spontaneously resolved to NSR. Cardiology was consulted. TSH was noted to be in normal range. Patient was optimized for discharge and discharged to TCU for further rehabilitation. PMH: as stated above PSH: cholecystectomy FMHx: noncontributary SHx: 2 pints of vodka daily. Last drink was the morning of 03/30. Patient used to drink before being diagnosed with cirrhosis at unknown time. Patient has unknown drinking history prior to cirrhosis. Patient reports 30 pack year history and stopped smoking 30 years ago. Patient denies recreational drug use. Allergies: NKDA PMD: Dr. Mercado Present on Admission - Present on Admission Any Indicators Present on Admission: No Review of Systems - Review of Systems All systems: reviewed and no additional remarkable complaints except (as stated in HPI) Past Patient History - Infectious Disease Hx of Infectious Diseases: None - Past Social History Smoking Status: Former Smoker - CARDIAC Hx Hypertension: Yes - PULMONARY Hx Respiratory Disorders: No - NEUROLOGICAL Hx Neurological Disorder: Yes Other/Comment: facial palsy,left facial droop 2013 - HEENT Hx HEENT Problems: Yes Hx Glaucoma: Yes - RENAL Hx Chronic Kidney Disease: No - ENDOCRINE/METABOLIC Hx Endocrine Disorders: No - HEMATOLOGICAL/ONCOLOGICAL Hx Blood Disorders: Yes Hx Cirrhosis: Yes - INTEGUMENTARY Hx Dermatological Problems: No - MUSCULOSKELETAL/RHEUMATOLOGICAL Hx Falls: No - GASTROINTESTINAL Hx Gastrointestinal Disorders: Yes (MALNUTRITION-ETOH ABUSE) - GENITOURINARY/GYNECOLOGICAL Hx Genitourinary Disorders: Yes (UTI) Hx Reproductive Disorders: No - PSYCHIATRIC Hx Psychophysiologic Disorder: Yes Hx Anxiety: Yes Hx Depression: Yes Hx Panic Symptoms: Yes Hx Substance Use: No Other/Comment: alcohol use, as per patient she drinks 3 bottles of rum daily - SURGICAL HISTORY Hx Cholecystectomy: Yes - ANESTHESIA Hx Anesthesia Reactions: No Hx Malignant Hyperthermia: No Meds Allergies/Adverse Reactions: Allergies Allergy/AdvReac Type Severity Reaction Status Date / Time No Known Allergies Allergy Verified 04/04/18 19:03 Physical Exam - Additional Findings Additional findings: - Constitutional Appears: Well, No Acute Distress, Unkempt - Head Exam Head Exam: ATRAUMATIC, NORMAL INSPECTION, NORMOCEPHALIC - Eye Exam Eye Exam: EOMI, PERRL - ENT Exam ENT Exam: Mucous Membranes Dry - Respiratory Exam Respiratory Exam: Clear to Auscultation Bilateral, NORMAL BREATHING PATTERN - Cardiovascular Exam Cardiovascular Exam: REGULAR RHYTHM, RRR, +S1, S2. absent: Murmur - GI/Abdominal Exam GI & Abdominal Exam: Normal Bowel Sounds, Soft. absent: Tenderness, Rebound, Distended - Extremities Exam Extremities exam: Positive for: full ROM Additional comments: wound on LLE second toe with erythema, no drainage or fluctuance, dressing C/D/I - Neurological Exam Neurological exam: Altered, Oriented x3, CN II-XII Intact - Skin Skin Exam: Dry, Intact, Warm Results - Vital Signs Recent Vital Signs: Last Vital Signs Temp 98.2 F 04/04/18 20:21 Pulse 79 04/04/18 20:21 Resp 18 04/04/18 20:21 BP 145/97 H 04/04/18 20:21 Pulse Ox - Labs Result Diagrams: 04/05/18 10:45 04/05/18 10:45 Assessment & Plan - Assessment and Plan (Free Text) Assessment: 72 year old Austrian speaking female with past medical history hypertension, f acial palsy, TIA, glaucoma, cirrhosis, osteoporosis, colitis, gastritis, UTI, anxiety, depression, panic disorder, and urinary retention presents with abdominal pain and alcohol withdrawal, now admitted to TCU. Plan: Atrial fibrillation - one episode that resolved spontaneously - outpatient stress test as per cardiology Dr. Mg's recs - TSH wnl Toe abscess - Podiatry on consult - s/p I&D with no complications - left foot xray negative for acute findings - wound culture growing gram positive cocci - MRI shows no sign of OM - admitted to TCU - Clindamycin 150 mg PO Q6H Alcohol withdrawal - serum alcohol on admission 201 - UDS negative - CIWA protocol - Ativan 1mg prn, Zofran 4 mg Q6PRN - multivitamin, thiamine, folic acid daily - avoid librium and valium due to cirrhosis - cessation counseling Atypical chest pain - EKG: Sinus tachycardia at 110 bpm - troponins neg x3 - Aspirin 81 daily, Metoprolol Tartrate 25 mg daily, Spironolactone 25 mg daily - Toradol 30 mg Q6H PRN for pain Abdominal pain - history of gastritis and cirrhosis - Abdominal CT: no acute abdominal or pelvic pathology. hepatomegaly and fatty liver. colonic diverticulosis with no evidence of diverticulitis, fibroid uterus - Abdominal ultrasound 01/2018: increased echogenicity of liver parenchyma, no mass, no intrahepatic bile duct dilation - Protonix MICHEAL, Maalox and sucralfate PRN Anxiety and depression - currently no suicidal ideations - Psychiatry consulted. Appreciate recs. - Seroquel 25 mg PO HS PPX - Protonix 40 mg PO daily - Lovenox 40 mg SC daily Case discussed with Dr. Cricket Seymour PGY-1 - Date & Time Date: 04/05/18 Time: 07:22 <Lise Harley - Last Filed: 04/05/18 16:03> Results - Vital Signs Recent Vital Signs: Last Vital Signs Temp 98.2 F 04/04/18 20:21 Pulse 79 04/04/18 20:21 Resp 18 04/04/18 20:21 BP 145/88 04/05/18 10:41 Pulse Ox - Labs Result Diagrams: 04/05/18 10:45 04/05/18 10:45 Labs: Laboratory Results - last 24 hr 04/05/18 04/05/18 10:45 10:45 WBC 5.9 D RBC 3.55 Hgb 11.2 L Hct 34.4 L MCV 96.9 MCH 31.5 MCHC 32.6 RDW 14.4 Plt Count 140 MPV 10.0 Gran % 57.4 Lymph % (Auto) 20.2 L Sawyer % (Auto) 14.1 H Eos % (Auto) 7.8 H Baso % (Auto) 0.5 Gran # 3.38 Lymph # (Auto) 1.2 Sawyer # (Auto) 0.8 H Eos # (Auto) 0.5 Baso # (Auto) 0.03 Sodium 135 Potassium 4.1 Chloride 100 Carbon Dioxide 30 Anion Gap 9 L BUN 16 Creatinine 0.6 L Est GFR ( Amer) > 60 Est GFR (Non-Af Amer) > 60 Random Glucose 118 H Calcium 9.5 Phosphorus 3.8 Magnesium 2.2 Total Bilirubin 0.6 AST 119 H ALT 78 H Alkaline Phosphatase 86 Total Protein 6.9 Albumin 3.7 Globulin 3.2 Albumin/Globulin Ratio 1.1 Attending/Attestation - Attestation I have personally seen and examined this patient.: Yes I have fully participated in the care of the patient.: Yes I have reviewed all pertinent clinical information: Yes Notes (Text): 04/05/18 15:59 Medical record note made by the resident after discussion with my direction and input after the patient was personally seen and examined by me. I have reviewed the chart and agree that the record accurately reflects by personal performance of the history, physical exam, data review, and medical decision-making, in the course for the patient. I have also personally directed the plan of care. 72 year old Austrian speaking female with past medical history of hypertension, facial palsy, TIA, glaucoma, cirrhosis, osteoporosis, colitis, gastritis, UTI, anxiety, depression, panic disorder, and urinary retention presenting with 2 week history of drinking 2 pints of vodka daily and one week of loss of appetite. Patient was also s/p numerous falls. Patient was admitted in inpatient initially and was treated for alcohol withdrawal. Patient epigatric pain is due to Peptic ulcer disease, has responded well to PPI. EKG was negative for ischemic changes, serial troponins were normal. Abdominal CT showed no acute abdominal or pelvic pathology, hepatomegaly and fatty liver, colonic diverticulosis with no evidence of diverticulitis, fibroid uterus. Previous abdominal ultrasound from two months prior showed increased echogenicity of liver parenchyma, no mass, no intrahepatic bile duct dilation. Patient was started on seroquel as per psychiatry recommendations for anxiety, depression, and insomnia. Patient was also noted to have a toe abscess. Podiatry was consulted. Patient underwent I&D with no complications. Left foot xray was negative for acute findings. MRI was negative for osteomyelitis. Wound culture grew MRSA. Patient also had an episode of afib with monitor noting tachycardia into 130s that spontaneously resolved to NSR. Cardiology was consulted. TSH was noted to be in normal range. Patient has been evaluated by PT and will be admitted to TCU for rehabilitation. Management plan was discussed in detail with patient. Education was provided
--- NOTE | 2018-04-05 09:07 | CP.PCM.PCO ---
Addendum Addendum: 04/05/18 09:06 pt is psychiatrically stable see consultation on the medical site follow up info provided meds discussed pt denied SI/HI, denied any psychotic symptoms pt pose no imminent danger to self or others discussed with medical manager and attending sign off please reconsult as needed thank you
--- NOTE | 2018-04-05 09:24 | CP.PCM.PN ---
<Windy Prado - Last Filed: 04/05/18 10:13> Subjective - Date & Time of Evaluation Date of Evaluation: 04/05/18 Time of Evaluation: 09:22 - Subjective Subjective: Podiatry progress note for Dr. Galvan/Steven 72 year old somnolent, AAOx2 at bedside, and Ch[place] speaking female with past medical history of hypertension, facial palsy, TIA, glaucoma, cirrhosis, osteoporosis, colitis, gastritis, UTI, anxiety, depression, panic disorder, and urinary retention presents with left foot second digit abscess. Denies acute overnight events. Denies f/n/v/sob/cp. Objective - Vital Signs/Intake and Output Vital Signs (last 24 hours): Temp Pulse Resp BP Pulse Ox 98.2 F 79 18 145/97 H 04/04/18 20:21 04/04/18 20:21 04/04/18 20:21 04/04/18 20:21 - Medications Medications: Current Medications Al Hydrox/Mg Hydrox/Simethicone (Maalox Plus 30 Ml) 30 ml PO DAILY PRN; Protocol PRN Reason: Indigestion / Heartburn Aspirin (Aspirin Chewable) 81 mg PO DAILY MICHEAL; Protocol Folic Acid (Folic Acid) 1 mg PO DAILY MICHEAL; Protocol Ampicillin Sodium/Sulbactam (Sodium 3 gm/ Sodium Chloride) 100 mls @ 200 mls/hr IVPB 0600,1200,1800,0000 MICHEAL; Protocol Stop: 04/06/18 12:29 Last Admin: 04/05/18 05:11 Dose: 200 mls/hr Vancomycin HCl (Vancomycin 1gm) 1 gm in 250 mls @ 167 mls/hr IVPB 0600 MICHEAL; Protocol Stop: 04/09/18 07:30 Last Admin: 04/05/18 06:02 Dose: 167 mls/hr Ketorolac Tromethamine (Toradol) 15 mg IVP Q6H PRN; Protocol PRN Reason: Pain, moderate (4-7) Lorazepam (Ativan) 1 mg PO Q4H PRN; Protocol PRN Reason: Anxiety Last Admin: 04/05/18 03:23 Dose: 1 mg Metoprolol Tartrate (Lopressor) 50 mg PO 0800,1800 MICHEAL; Protocol Last Admin: 04/04/18 19:54 Dose: 50 mg Multivitamins/Minerals (Therapeutic-M Tab) 1 tab PO 0800 MICHEAL; Protocol Nystatin (Nystatin Oral Susp) 5 ml PO QID MICHEAL; Protocol Last Admin: 04/04/18 21:05 Dose: 5 ml Ondansetron HCl (Zofran Inj) 4 mg IVP Q6H PRN; Protocol PRN Reason: Nausea/Vomiting Pantoprazole Sodium (Protonix Ec Tab) 40 mg PO 0600 MICHEAL; Protocol Last Admin: 04/05/18 06:57 Dose: 40 mg Quetiapine Fumarate (Seroquel) 25 mg PO HS MICHEAL; Protocol Last Admin: 04/04/18 21:04 Dose: 25 mg Spironolactone (Aldactone) 25 mg PO DAILY MICHEAL; Protocol Thiamine HCl (Vitamin B1 Tab) 100 mg PO DAILY MICHEAL; Protocol - Constitutional Appears: Well, Non-toxic, No Acute Distress - Head Exam Head Exam: ATRAUMATIC, NORMOCEPHALIC - Eye Exam Eye Exam: Normal appearance - ENT Exam ENT Exam: Mucous Membranes Moist - Extremities Exam Additional comments: Left lower extremity exam: Vascular: DP/PT 2/4, CFT <3 secs x 5, TG warm to warm ( warmer on the second digit), erythema and edema noted to the second digit neuro: protective sensation intact via ipswich 4/4 derm: wound noted at the previous site of incision and drainage, no active drainage, no fluctuance, no other open lesions, no IDM ortho: moderate pain upon palpation of the second digit, rigid hammertoe of the second digit - Neurological Exam Neurological Exam: Alert, Awake, Oriented x3 Assessment and Plan - Assessment and Plan (Free Text) Assessment: 72 yo female seen and evaluated for left second digit abscess. Plan: Patient seen and evaluated Chart, labs and vitals reviewed Wound cultures : MRSA Left foot x-rays: no osseous erosions noted, no other acute Left foot MRI: no evidence of osteomyelitis MADAN/PVR ordered- WNL ESR-54 CRP-4.75 Left foot dressed with optifoam No plan for intervention Stable for discharge from podiatry point of view podiatry will continue to follow the patient while in house <Reese Harris - Last Filed: 04/05/18 17:44> Objective - Vital Signs/Intake and Output Vital Signs (last 24 hours): Temp Pulse Resp BP Pulse Ox 98.7 F 91 H 18 145/88 98 04/05/18 10:00 04/05/18 10:00 04/05/18 10:00 04/05/18 10:41 04/05/18 10:00 - Medications Medications: Current Medications Al Hydrox/Mg Hydrox/Simethicone (Maalox Plus 30 Ml) 30 ml PO DAILY PRN; Protocol PRN Reason: Indigestion / Heartburn Last Admin: 04/05/18 09:48 Dose: 30 ml Aspirin (Aspirin Chewable) 81 mg PO DAILY MICHEAL; Protocol Last Admin: 04/05/18 10:41 Dose: 81 mg Clindamycin HCl (Cleocin) 150 mg PO Q6 MICHEAL; Protocol Folic Acid (Folic Acid) 1 mg PO DAILY MICHEAL; Protocol Last Admin: 04/05/18 10:41 Dose: 1 mg Ketorolac Tromethamine (Toradol) 15 mg IVP Q6H PRN; Protocol PRN Reason: Pain, moderate (4-7) Lorazepam (Ativan) 1 mg PO Q4H PRN; Protocol PRN Reason: Anxiety Last Admin: 04/05/18 13:59 Dose: 1 mg Metoprolol Tartrate (Lopressor) 50 mg PO 0800,1800 MICHEAL; Protocol Last Admin: 04/05/18 10:41 Dose: 50 mg Multivitamins/Minerals (Therapeutic-M Tab) 1 tab PO 0800 MICHEAL; Protocol Last Admin: 04/05/18 10:42 Dose: 1 tab Nystatin (Nystatin Oral Susp) 5 ml PO QID MICHEAL; Protocol Last Admin: 04/05/18 13:50 Dose: 5 ml Ondansetron HCl (Zofran Inj) 4 mg IVP Q6H PRN; Protocol PRN Reason: Nausea/Vomiting Pantoprazole Sodium (Protonix Ec Tab) 40 mg PO 0600 MICHEAL; Protocol Last Admin: 04/05/18 06:57 Dose: 40 mg Quetiapine Fumarate (Seroquel) 25 mg PO HS MICHEAL; Protocol Last Admin: 04/04/18 21:04 Dose: 25 mg Spironolactone (Aldactone) 25 mg PO DAILY MICHEAL; Protocol Last Admin: 04/05/18 10:42 Dose: 25 mg Sucralfate (Carafate Oral Susp) 1 gm PO 0630,1130,1630,2200 MICHEAL Last Admin: 04/05/18 13:50 Dose: 1 gm Thiamine HCl (Vitamin B1 Tab) 100 mg PO DAILY MICHEAL; Protocol Last Admin: 04/05/18 10:41 Dose: 100 mg - Labs Labs: 04/05/18 10:45 04/05/18 10:45 Attending/Attestation - Attestation I have personally seen and examined this patient.: Yes I have fully participated in the care of the patient.: Yes I have reviewed all pertinent clinical information, including history, physical exam and plan: Yes
[2018-04-05] MEDS: Alum-Mag Hydrox-Simethicone Susp (30 mL) PO PRN (09:48)
[2018-04-05] MEDS: Multivitamin With Minerals Tab PO SCH (10:42)
[2018-04-05] MEDS: Nystatin 100,000 Units/ml Oral Susp 5 ml UD PO SCH ×4 (10:42→21:37)
[2018-04-05 10:59] LABS: BASO # 0.03 K/mm3 (0.0-2.0); BASO % 0.5 % (0.0-3.0); EOS # 0.5 (0.0-0.7); EOS % 7.8 % (1.5-5.0); GRAN # 3.38 (1.4-6.5); GRAN % 57.4 % (50.0-68.0); HEMOGLOBIN 11.2 g/dL (12.0-16.0); LYMPH # 1.2 (1.2-3.4); LYMPH % 20.2 % (22.0-35.0); MEAN CELL VOLUME 96.9 fl (80.0-105.0); MEAN CORPUSCULAR HEMOGLOBIN 31.5 pg (25.0-35.0); MEAN CORPUSCULAR HGB CONC 32.6 g/dl (31.0-37.0); MONO # 0.8 (0.1-0.6); MONO % 14.1 % (1.0-6.0); RBC 3.55 10^6/uL (3.5-6.1); RED CELL DISTRIBUTION WIDTH 14.4 % (11.5-14.5); WHITE BLOOD COUNT 5.9 10^3/uL (4.5-11.0)
[2018-04-05 11:07] LABS: ALB/GLOB RATIO 1.1 (1.1-1.8); ALBUMIN 3.7 g/dL (3.0-4.8); ALT/SGPT 78 U/L (7-56); AST/SGOT 119 U/L (14-36); BLOOD UREA NITROGEN 16 mg/dL (7-21); CALCIUM 9.5 mg/dL (8.4-10.5); GFR NON-AFRICAN AMERICAN > 60
[2018-04-05] MEDS: Sucralfate 1 gm/10 ml Oral Susp UD PO SCH ×3 (13:50→21:37)
--- NOTE | 2018-04-05 17:17 | CP.PCM.CON ---
History of Present Illness - History of Present Illness History of Present Illness: Infectious Disease Consultation: April 05, 2018 72 yo primarily Yemeni speaking female with left foot 2nd toe ulceration and erythema. Patient with past medical history of hypertension, facial palsy, TIA, glaucoma, cirrhosis, osteoporosis, colitis, gastritis, UTI, anxiety, depression, panic disorder, and urinary retention presenting with 2 week history of drinking 2 pints of vodka daily and one week of loss of appetite. Patient was also s/p numerous falls. Patient reported headache, dizziness, tremors, tinnitus, but no hearing loss. Patient had 10 episodes of vomiting with blood tinged vomit and numerous episodes of watery stools mixed with blood. Patient denies chest pain, heart palpitations, and shortness of breath. 12-point ROS was unreliable due to patient's somnolence and mental status. On admission patient had serum alcohol level 201, negative UDS. Patient received Ativan PRN was given with multivitamin, thiamine, folic acid. Patient also presented of abdominal pain. Abdominal CT showed no acute abdominal or pelvic pathology, hepatomegaly and fatty liver, colonic diverticulosis with no evidence of diverticulitis, fibroid uterus. Previous abdominal ultrasound from two months prior showed increased echogenicity of liver parenchyma, no mass, no intrahepatic bile duct dilation. Patient has a toe abscess. Left foot xray was negative for acute findings and MRI was negative for osteomyelitis. Wound culture grew MRSA. In TCU now. Patient not cooperative during exam. "" in room. PMHx: hypertension, facial palsy, TIA, glaucoma, cirrhosis, osteoporosis, colitis, gastritis, UTI, anxiety, depression, panic disorder, and urinary retention PSHx: Cholecystectomy Allergies: NKDA Social Hx: 2 pints of vodka daily. 30 pack year tobacco history. Supposed stopped 30 years ago. Active Medications Al Hydrox/Mg Hydrox/Simethicone (Maalox Plus 30 Ml) 30 ml PO DAILY PRN; Protocol PRN Reason: Indigestion / Heartburn Last Admin: 04/05/18 09:48 Dose: 30 ml Aspirin (Aspirin Chewable) 81 mg PO DAILY [facility]; Protocol Last Admin: 04/05/18 10:41 Dose: 81 mg Clindamycin HCl (Cleocin) 150 mg PO Q6 [facility]; Protocol Folic Acid (Folic Acid) 1 mg PO DAILY [facility]; Protocol Last Admin: 04/05/18 10:41 Dose: 1 mg Ketorolac Tromethamine (Toradol) 15 mg IVP Q6H PRN; Protocol PRN Reason: Pain, moderate (4-7) Lorazepam (Ativan) 1 mg PO Q4H PRN; Protocol PRN Reason: Anxiety Last Admin: 04/05/18 13:59 Dose: 1 mg Metoprolol Tartrate (Lopressor) 50 mg PO 0800,1800 [facility]; Protocol Last Admin: 04/05/18 10:41 Dose: 50 mg Multivitamins/Minerals (Therapeutic-M Tab) 1 tab PO 0800 [facility]; Protocol Last Admin: 04/05/18 10:42 Dose: 1 tab Nystatin (Nystatin Oral Susp) 5 ml PO QID [facility]; Protocol Last Admin: 04/05/18 13:50 Dose: 5 ml Ondansetron HCl (Zofran Inj) 4 mg IVP Q6H PRN; Protocol PRN Reason: Nausea/Vomiting Pantoprazole Sodium (Protonix Ec Tab) 40 mg PO 0600 [facility]; Protocol Last Admin: 04/05/18 06:57 Dose: 40 mg Quetiapine Fumarate (Seroquel) 25 mg PO HS [facility]; Protocol Last Admin: 04/04/18 21:04 Dose: 25 mg Spironolactone (Aldactone) 25 mg PO DAILY [facility]; Protocol Last Admin: 04/05/18 10:42 Dose: 25 mg Sucralfate (Carafate Oral Susp) 1 gm PO 0630,1130,1630,2200 [facility] Last Admin: 04/05/18 13:50 Dose: 1 gm Thiamine HCl (Vitamin B1 Tab) 100 mg PO DAILY [facility]; Protocol Last Admin: 04/05/18 10:41 Dose: 100 mg Family Hx: noncontributary ROS: Unable to obtain. Past Patient History - Infectious Disease Hx of Infectious Diseases: None - Past Social History Smoking Status: Former Smoker - CARDIAC Hx Hypertension: Yes - PULMONARY Hx Respiratory Disorders: No - NEUROLOGICAL Hx Neurological Disorder: Yes Other/Comment: facial palsy,left facial droop 2014 - HEENT Hx HEENT Problems: Yes Hx Glaucoma: Yes - RENAL Hx Chronic Kidney Disease: No - ENDOCRINE/METABOLIC Hx Endocrine Disorders: No - HEMATOLOGICAL/ONCOLOGICAL Hx Blood Disorders: Yes Hx Cirrhosis: Yes - INTEGUMENTARY Hx Dermatological Problems: No - MUSCULOSKELETAL/RHEUMATOLOGICAL Hx Falls: No - GASTROINTESTINAL Hx Gastrointestinal Disorders: Yes (MALNUTRITION-ETOH ABUSE) - GENITOURINARY/GYNECOLOGICAL Hx Genitourinary Disorders: Yes (UTI) Hx Reproductive Disorders: No - PSYCHIATRIC Hx Psychophysiologic Disorder: Yes Hx Anxiety: Yes Hx Depression: Yes Hx Panic Symptoms: Yes Hx Substance Use: No Other/Comment: alcohol use, as per patient she drinks 3 bottles of rum daily - SURGICAL HISTORY Hx Cholecystectomy: Yes - ANESTHESIA Hx Anesthesia Reactions: No Hx Malignant Hyperthermia: No Meds Allergies/Adverse Reactions: Allergies Allergy/AdvReac Type Severity Reaction Status Date / Time No Known Allergies Allergy Verified 04/04/18 19:03 - Medications Medications: Current Medications Al Hydrox/Mg Hydrox/Simethicone (Maalox Plus 30 Ml) 30 ml PO DAILY PRN; Protocol PRN Reason: Indigestion / Heartburn Last Admin: 04/05/18 09:48 Dose: 30 ml Aspirin (Aspirin Chewable) 81 mg PO DAILY [facility]; Protocol Last Admin: 04/05/18 10:41 Dose: 81 mg Clindamycin HCl (Cleocin) 150 mg PO Q6 [facility]; Protocol Folic Acid (Folic Acid) 1 mg PO DAILY [facility]; Protocol Last Admin: 04/05/18 10:41 Dose: 1 mg Ketorolac Tromethamine (Toradol) 15 mg IVP Q6H PRN; Protocol PRN Reason: Pain, moderate (4-7) Lorazepam (Ativan) 1 mg PO Q4H PRN; Protocol PRN Reason: Anxiety Last Admin: 04/05/18 13:59 Dose: 1 mg Metoprolol Tartrate (Lopressor) 50 mg PO 0800,1800 [facility]; Protocol Last Admin: 04/05/18 10:41 Dose: 50 mg Multivitamins/Minerals (Therapeutic-M Tab) 1 tab PO 0800 [facility]; Protocol Last Admin: 04/05/18 10:42 Dose: 1 tab Nystatin (Nystatin Oral Susp) 5 ml PO QID [facility]; Protocol Last Admin: 04/05/18 13:50 Dose: 5 ml Ondansetron HCl (Zofran Inj) 4 mg IVP Q6H PRN; Protocol PRN Reason: Nausea/Vomiting Pantoprazole Sodium (Protonix Ec Tab) 40 mg PO 0600 [facility]; Protocol Last Admin: 04/05/18 06:57 Dose: 40 mg Quetiapine Fumarate (Seroquel) 25 mg PO HS [facility]; Protocol Last Admin: 04/04/18 21:04 Dose: 25 mg Spironolactone (Aldactone) 25 mg PO DAILY [facility]; Protocol Last Admin: 04/05/18 10:42 Dose: 25 mg Sucralfate (Carafate Oral Susp) 1 gm PO 0630,1130,1630,2200 [facility] Last Admin: 04/05/18 13:50 Dose: 1 gm Thiamine HCl (Vitamin B1 Tab) 100 mg PO DAILY [facility]; Protocol Last Admin: 04/05/18 10:41 Dose: 100 mg Physical Exam - Constitutional Appears: Non-toxic, No Acute Distress, Chronically Ill - Head Exam Head Exam: ATRAUMATIC, NORMOCEPHALIC - Eye Exam Eye Exam: EOMI, PERRL Pupil Exam: NORMAL ACCOMODATION, PERRL - ENT Exam ENT Exam: Mucous Membranes Moist, Normal External Ear Exam, TM's Normal Bilaterally - Neck Exam Neck exam: Positive for: Full Rom, Normal Inspection - Respiratory Exam Respiratory Exam: Clear to Auscultation Bilateral, NORMAL BREATHING PATTERN. absent: Rales, Rhonchi, Wheezes - Cardiovascular Exam Cardiovascular Exam: REGULAR RHYTHM, RRR, +S1, +S2 - GI/Abdominal Exam GI & Abdominal Exam: Normal Bowel Sounds, Soft. absent: Distended, Tenderness - Extremities Exam Extremities exam: Positive for: full ROM Additional comments: wound on LLE second toe with erythema, no drainage or fluctuance, dressing C/D/I - Neurological Exam Neurological exam: Altered, CN II-XII Intact, Oriented x3 - Skin Skin Exam: Dry, Intact, Warm Results - Vital Signs Recent Vital Signs: Last Vital Signs Temp 98.7 F 04/05/18 10:00 Pulse 91 H 04/05/18 10:00 Resp 18 04/05/18 10:00 BP 145/88 04/05/18 10:41 Pulse Ox 98 04/05/18 10:00 - Labs Result Diagrams: 04/05/18 10:45 04/05/18 10:45 Labs: Laboratory Results - last 24 hr 04/05/18 04/05/18 10:45 10:45 WBC 5.9 D RBC 3.55 Hgb 11.2 L Hct 34.4 L MCV 96.9 MCH 31.5 MCHC 32.6 RDW 14.4 Plt Count 140 MPV 10.0 Gran % 57.4 Lymph % (Auto) 20.2 L [place] % (Auto) 14.1 H Eos % (Auto) 7.8 H Baso % (Auto) 0.5 Gran # 3.38 Lymph # (Auto) 1.2 [place] # (Auto) 0.8 H Eos # (Auto) 0.5 Baso # (Auto) 0.03 Sodium 135 Potassium 4.1 Chloride 100 Carbon Dioxide 30 Anion Gap 9 L BUN 16 Creatinine 0.6 L Est GFR ( Amer) > 60 Est GFR (Non-Af Amer) > 60 Random Glucose 118 H Calcium 9.5 Phosphorus 3.8 Magnesium 2.2 Total Bilirubin 0.6 AST 119 H ALT 78 H Alkaline Phosphatase 86 Total Protein 6.9 Albumin 3.7 Globulin 3.2 Albumin/Globulin Ratio 1.1 Assessment & Plan - Assessment and Plan (Free Text) Assessment: 72 yo female with heavy alcohol abuse history with MRSA in left foot ulcer/wound in 2nd toe. Supportive care. On Clindamycin for treatment at this time. Consider use of Bactrim or Doxycycline for treatment. No osteomyelitis in imaging studies. ESR of 54. Local wound care. Spoke with Dr. Harley. Thank you for allowing me to participate in the care of the patient, we will follow with you.
--- NOTE | 2018-04-05 21:28 | CON ---
DATE: 04/05/2018 LOCATION: Patient in TCU 302, bed 1. REASON FOR CONSULTATION: Atrial fibrillation and hypertension. HISTORY OF PRESENT ILLNESS: The patient is a 72-year-old female who was known to have alcohol abuse, was admitted to the hospital on the medical floor with atypical chest pain, found to have alcohol level of 201. She went to spontaneous atrial fibrillation, converted also spontaneously to sinus rhythm and a consult was called and the patient was stabilized and now she is admitted to Transition Care Unit for deconditioning physical therapy. Patient is lying flat in bed without having chest pain, shortness of breath or palpitation. The patient is a known case of alcohol abuse, hypertension, facial palsy in 2013, TIA, glaucoma, cirrhosis of liver and had liver biopsy in 2012, osteoporosis, gastritis, anxiety, depression, panic disorder, and history of urinary retention. She has been drinking for 2 weeks 2 pints of vodka everyday. PAST MEDICAL HISTORY: Positive for chronic alcohol abuse, hypertension, facial palsy in 2013, TIA, glaucoma, cirrhosis of liver, liver biopsy in 2012, osteoporosis, gastritis, anxiety, depression, panic disorder, and urinary retention. PAST SURGICAL HISTORY: Patient had cholecystectomy and pilonidal cyst surgery. PERSONAL HISTORY: Patient drinks heavily and has been drinking since last 2 weeks 2 pints of vodka daily. Denies smoking. ALLERGIES: NO KNOWN ALLERGIES PREVIOUS CARDIAC WORKUP: Patient had echocardiogram, 11/29/2017, shows normal LV size, normal LV systolic function with ejection fraction of 55%, trace aortic regurgitation, trace mitral regurgitation, moderate tricuspid regurgitation with RVSP of 59 mmHg suggestive of moderate pulmonary hypertension. LIST OF MEDICATIONS AT HOME: Patient was on Ambien, thiamine, Carafate, Aldactone 25 mg daily, Seroquel 25 mg p.o. at bedtime, MiraLax 17 gram p.o. b.i.d., Protonix 40 mg daily, metoprolol tartrate 50 mg b.i.d., lisinopril/hydrochlorothiazide 20/12.5 mg daily, Vantin 200 mg p.o. every 12 hours. REVIEW OF SYSTEMS: All the systems reviewed, positive as mentioned in the history, otherwise negative. PHYSICAL EXAMINATION: VITAL SIGNS: Blood pressure 145/88, respirations 18, pulse 79, and temperature 98.2. HEENT: Head is normocephalic. Eyes, pupils normal. Conjunctiva slightly pale. NECK: JVP low. Carotid equal. THORAX: AP diameter normal. LUNGS: Clear. CARDIOVASCULAR: S1 and S2. ABDOMEN: Soft and nontender. No organomegaly. Bowel sounds normal. EXTREMITIES: No clubbing or cyanosis. LABORATORY DATA: WBC 5.9, hemoglobin 11.2, hematocrit 34.4, and platelets 140. Sodium 135, potassium 4.1, BUN 16, creatinine 0.6, AST 119, ALT 78, total protein normal, phosphorus and magnesium normal, and random glucose 118. EKG on admission showed normal sinus rhythm. DIAGNOSES: Atrial fibrillation, which converted to sinus rhythm spontaneously, probably related to alcoholism because her alcohol level on admission was 201, hypertension, facial palsy, transient ischemic attack, glaucoma, cirrhosis of liver, anxiety, depression, panic disorder, moderate pulmonary hypertension, alcohol abuse, osteoporosis, and gastritis. Patient's atrial fibrillation was probably of this result of heavy alcohol drinking with level of 201. PLAN: Patient will continue spironolactone 25 mg daily, aspirin 81 mg daily. Patient on clindamycin 150 mg p.o. every 6 hours, Carafate 1 gram p.o. b.i.d. metoprolol tartrate 50 mg b.i.d., Protonix 40 mg daily, Seroquel 25 mg p.o. at bedtime, and thiamine 100 mg p.o. daily. We will monitor with you and we will follow with you. Patient will have a stress test as outpatient to evaluate further cardiac status. Presently, patient does not have any chest pain and cardiac status is stable. Continue physical therapy for deconditioning. Lise Mary MD
[2018-04-06] MEDS: Pantoprazole 40 mg EC Tab PO SCH (05:29)
[2018-04-06] MEDS: Sucralfate 1 gm/10 ml Oral Susp UD PO SCH ×4 (05:30→21:09)
[2018-04-06] MEDS: Alum-Mag Hydrox-Simethicone Susp (30 mL) PO PRN (09:50)
[2018-04-06] MEDS: Multivitamin With Minerals Tab PO SCH (09:51)
[2018-04-06] MEDS: Nystatin 100,000 Units/ml Oral Susp 5 ml UD PO SCH ×4 (10:43→21:09)
--- NOTE | 2018-04-06 10:46 | CP.PCM.PN ---
<Devin Castro - Last Filed: 04/06/18 10:42> Subjective - Date & Time of Evaluation Date of Evaluation: 04/06/18 Time of Evaluation: 10:42 - Subjective Subjective: Podiatry progress note for Dr. Harris 72F seen and evaluated at bedside with Dr. Harris. Seen resting comfortably. Denies pain to second digit and to the foot. Denies acute overnight events. Denies f/n/v/sob/cp. Has no other acute complaints at this time. Objective - Vital Signs/Intake and Output Vital Signs (last 24 hours): Temp Pulse Resp BP Pulse Ox 98.7 F 91 H 18 126/93 H 98 04/05/18 10:00 04/05/18 10:00 04/05/18 10:00 04/06/18 09:50 04/05/18 10:00 Intake and Output: 04/06/18 04/06/18 06:59 18:59 Intake Total 380 Balance 380 - Medications Medications: Current Medications Al Hydrox/Mg Hydrox/Simethicone (Maalox Plus 30 Ml) 30 ml PO DAILY PRN; Protocol PRN Reason: Indigestion / Heartburn Last Admin: 04/06/18 09:50 Dose: 30 ml Aspirin (Aspirin Chewable) 81 mg PO DAILY [facility]; Protocol Last Admin: 04/05/18 10:41 Dose: 81 mg Clindamycin HCl (Cleocin) 150 mg PO Q6 [facility]; Protocol Last Admin: 04/06/18 05:17 Dose: 150 mg Folic Acid (Folic Acid) 1 mg PO DAILY [facility]; Protocol Last Admin: 04/05/18 10:41 Dose: 1 mg Ketorolac Tromethamine (Toradol) 15 mg IVP Q6H PRN; Protocol PRN Reason: Pain, moderate (4-7) Lorazepam (Ativan) 1 mg PO Q4H PRN; Protocol PRN Reason: Anxiety Last Admin: 04/06/18 05:17 Dose: 1 mg Metoprolol Tartrate (Lopressor) 50 mg PO 0800,1800 [facility]; Protocol Last Admin: 04/06/18 09:50 Dose: 50 mg Multivitamins/Minerals (Therapeutic-M Tab) 1 tab PO 0800 [facility]; Protocol Last Admin: 04/06/18 09:51 Dose: 1 tab Nystatin (Nystatin Oral Susp) 5 ml PO QID [facility]; Protocol Last Admin: 04/05/18 21:37 Dose: 5 ml Ondansetron HCl (Zofran Inj) 4 mg IVP Q6H PRN; Protocol PRN Reason: Nausea/Vomiting Last Admin: 04/06/18 01:06 Dose: 4 mg Pantoprazole Sodium (Protonix Ec Tab) 40 mg PO 0600 [facility]; Protocol Last Admin: 04/06/18 05:29 Dose: 40 mg Quetiapine Fumarate (Seroquel) 25 mg PO HS [facility]; Protocol Last Admin: 04/05/18 21:37 Dose: 25 mg Spironolactone (Aldactone) 25 mg PO DAILY [facility]; Protocol Last Admin: 04/05/18 10:42 Dose: 25 mg Sucralfate (Carafate Oral Susp) 1 gm PO 0630,1130,1630,2200 [facility] Last Admin: 04/06/18 05:30 Dose: 1 gm Thiamine HCl (Vitamin B1 Tab) 100 mg PO DAILY [facility]; Protocol Last Admin: 04/05/18 10:41 Dose: 100 mg - Labs Labs: 04/05/18 10:45 04/05/18 10:45 - Constitutional Appears: Well, Non-toxic, No Acute Distress - Head Exam Head Exam: ATRAUMATIC, NORMOCEPHALIC - Extremities Exam Additional comments: Left lower extremity exam: Vascular: DP/PT 2/4, CFT <3 secs x 5, TG warm to warm ( warmer on the second digit), erythema and edema noted to the second digit neuro: protective sensation intact via ipswich 4/4 derm: wound noted at the previous site of incision and drainage, no active drainage, no fluctuance, no other open lesions, no IDM, no clinical signs of infection ortho: moderate pain upon palpation of the second digit, rigid hammertoe of the second digit - Neurological Exam Neurological Exam: Alert, Awake, Oriented x3 Assessment and Plan - Assessment and Plan (Free Text) Assessment: 72F with left second digit abscess. Plan: Patient seen and evaluated with Dr. Harris Afebrile, absent leukocytosis Wound cultures : MRSA Left foot x-rays: no osseous erosions noted, no other acute Left foot MRI: no evidence of osteomyelitis MADAN/PVR ordered- WNL ESR-54 CRP-4.75 Left foot dressed with optifoam No plan for intervention Stable for discharge from podiatry point of view podiatry will continue to follow the patient while in house <Reese Harris - Last Filed: 04/09/18 09:45> Objective - Vital Signs/Intake and Output Vital Signs (last 24 hours): Temp Pulse Resp BP Pulse Ox 98.7 F 77 20 103/71 95 04/08/18 10:00 04/08/18 17:21 04/08/18 10:00 04/08/18 17:21 04/08/18 10:00 Intake and Output: 04/09/18 04/09/18 06:59 18:59 Intake Total 360 Balance 360 - Medications Medications: Current Medications Al Hydrox/Mg Hydrox/Simethicone (Maalox Plus 30 Ml) 30 ml PO DAILY PRN; Protocol PRN Reason: Indigestion / Heartburn Last Admin: 04/08/18 13:40 Dose: 30 ml Aspirin (Aspirin Chewable) 81 mg PO DAILY [facility]; Protocol Last Admin: 04/08/18 11:00 Dose: 81 mg Folic Acid (Folic Acid) 1 mg PO DAILY [facility]; Protocol Last Admin: 04/08/18 11:00 Dose: 1 mg Ketorolac Tromethamine (Toradol) 15 mg IVP Q6H PRN; Protocol PRN Reason: Pain, moderate (4-7) Last Admin: 04/08/18 08:52 Dose: 15 mg Lorazepam (Ativan) 1 mg PO Q4H PRN; Protocol PRN Reason: Anxiety Last Admin: 04/09/18 03:44 Dose: 1 mg Metoprolol Tartrate (Lopressor) 50 mg PO 0800,1800 [facility]; Protocol Last Admin: 04/08/18 17:21 Dose: 50 mg Multivitamins/Minerals (Therapeutic-M Tab) 1 tab PO 0800 [facility]; Protocol Last Admin: 04/08/18 08:07 Dose: 1 tab Nystatin (Nystatin Oral Susp) 5 ml PO QID [facility]; Protocol Last Admin: 04/08/18 21:12 Dose: 5 ml Ondansetron HCl (Zofran Inj) 4 mg IVP Q6H PRN; Protocol PRN Reason: Nausea/Vomiting Last Admin: 04/07/18 21:26 Dose: 4 mg Pantoprazole Sodium (Protonix Ec Tab) 40 mg PO 0600 [facility]; Protocol Last Admin: 04/09/18 05:45 Dose: 40 mg Quetiapine Fumarate (Seroquel) 50 mg PO HS [facility]; Protocol Last Admin: 04/08/18 21:11 Dose: 50 mg Spironolactone (Aldactone) 25 mg PO DAILY [facility]; Protocol Last Admin: 04/08/18 11:08 Dose: Not Given Sucralfate (Carafate Oral Susp) 1 gm PO 0630,1130,1630,2200 [facility] Last Admin: 04/09/18 05:45 Dose: 1 gm Thiamine HCl (Vitamin B1 Tab) 100 mg PO DAILY [facility]; Protocol Last Admin: 04/08/18 11:00 Dose: 100 mg Trimethoprim/Sulfamethoxazole (Bactrim Ds Tab) 1 tab PO BID [facility]; Protocol Last Admin: 04/08/18 17:20 Dose: 1 tab - Labs Labs: 04/09/18 06:40 04/09/18 06:40 Attending/Attestation - Attestation I have personally seen and examined this patient.: Yes I have fully participated in the care of the patient.: Yes I have reviewed all pertinent clinical information, including history, physical exam and plan: Yes
--- NOTE | 2018-04-06 17:20 | CP.PCM.PN ---
Subjective - Date & Time of Evaluation Date of Evaluation: 04/06/18 Time of Evaluation: 17:00 - Subjective Subjective: Infectious Disease Follow Up: April 06, 2018 72 yo primarily Samoan speaking female with left foot 2nd toe ulceration and erythema. Patient with past medical history of hypertension, facial palsy, TIA, glaucoma, cirrhosis, osteoporosis, colitis, gastritis, UTI, anxiety, depression, panic disorder, and urinary retention presenting with 2 week history of drinking 2 pints of vodka daily and one week of loss of appetite. Patient was also s/p numerous falls. Patient reported headache, dizziness, tremors, tinnitus, but no hearing loss. Patient had 10 episodes of vomiting with blood tinged vomit and numerous episodes of watery stools mixed with blood. Patient denies chest pain, heart palpitations, and shortness of breath. 12-point ROS was unreliable due to patient's somnolence and mental status. On admission patient had serum alcohol level 201, negative UDS. Patient received Ativan PRN was given with multivitamin, thiamine, folic acid. Patient also presented of abdominal pain. Abdominal CT showed no acute abdominal or pelvic pathology, hepatomegaly and fatty liver, colonic diverticulosis with no evidence of diverticulitis, fibroid uterus. Previous abdominal ultrasound from two months prior showed increased echogenicity of liver parenchyma, no mass, no intrahepatic bile duct dilation. Patient has a toe abscess. Left foot xray was negative for acute findings and MRI was negative for osteomyelitis. Wound culture grew MRSA. In TCU now. Patient sleepy. No current complaints. Objective - Vital Signs/Intake and Output Vital Signs (last 24 hours): Temp Pulse Resp BP Pulse Ox 97.8 F 75 18 149/78 100 04/06/18 16:00 04/06/18 16:00 04/06/18 16:00 04/06/18 16:00 04/06/18 16:00 Intake and Output: 04/06/18 04/06/18 06:59 18:59 Intake Total 380 Balance 380 - Medications Medications: Current Medications Al Hydrox/Mg Hydrox/Simethicone (Maalox Plus 30 Ml) 30 ml PO DAILY PRN; Protocol PRN Reason: Indigestion / Heartburn Last Admin: 04/06/18 09:50 Dose: 30 ml Aspirin (Aspirin Chewable) 81 mg PO DAILY [facility]; Protocol Last Admin: 04/06/18 14:11 Dose: Not Given Clindamycin HCl (Cleocin) 150 mg PO Q6 [facility]; Protocol Last Admin: 04/06/18 14:12 Dose: Not Given Folic Acid (Folic Acid) 1 mg PO DAILY [facility]; Protocol Last Admin: 04/06/18 14:12 Dose: Not Given Ketorolac Tromethamine (Toradol) 15 mg IVP Q6H PRN; Protocol PRN Reason: Pain, moderate (4-7) Last Admin: 04/06/18 11:06 Dose: 15 mg Lorazepam (Ativan) 1 mg PO Q4H PRN; Protocol PRN Reason: Anxiety Last Admin: 04/06/18 05:17 Dose: 1 mg Metoprolol Tartrate (Lopressor) 50 mg PO 0800,1800 [facility]; Protocol Last Admin: 04/06/18 09:50 Dose: 50 mg Multivitamins/Minerals (Therapeutic-M Tab) 1 tab PO 0800 [facility]; Protocol Last Admin: 04/06/18 09:51 Dose: 1 tab Nystatin (Nystatin Oral Susp) 5 ml PO QID [facility]; Protocol Last Admin: 04/06/18 14:12 Dose: Not Given Ondansetron HCl (Zofran Inj) 4 mg IVP Q6H PRN; Protocol PRN Reason: Nausea/Vomiting Last Admin: 04/06/18 01:06 Dose: 4 mg Pantoprazole Sodium (Protonix Ec Tab) 40 mg PO 0600 [facility]; Protocol Last Admin: 04/06/18 05:29 Dose: 40 mg Quetiapine Fumarate (Seroquel) 25 mg PO HS [facility]; Protocol Last Admin: 04/05/18 21:37 Dose: 25 mg Spironolactone (Aldactone) 25 mg PO DAILY [facility]; Protocol Last Admin: 04/06/18 14:11 Dose: Not Given Sucralfate (Carafate Oral Susp) 1 gm PO 0630,1130,1630,2200 [facility] Last Admin: 04/06/18 14:12 Dose: Not Given Thiamine HCl (Vitamin B1 Tab) 100 mg PO DAILY [facility]; Protocol Last Admin: 04/06/18 14:12 Dose: Not Given - Labs Labs: 04/05/18 10:45 04/05/18 10:45 - Constitutional Appears: Non-toxic, No Acute Distress, Chronically Ill - Head Exam Head Exam: ATRAUMATIC, NORMOCEPHALIC - Eye Exam Eye Exam: EOMI, PERRL Pupil Exam: NORMAL ACCOMODATION, PERRL - ENT Exam ENT Exam: Mucous Membranes Moist, Normal External Ear Exam, TM's Normal Bilaterally - Neck Exam Neck Exam: Full ROM, Normal Inspection - Respiratory Exam Respiratory Exam: Clear to Ausculation Bilateral, NORMAL BREATHING PATTERN. absent: Rales, Rhonchi, Wheezes - Cardiovascular Exam Cardiovascular Exam: REGULAR RHYTHM, RRR, +S1, +S2 - GI/Abdominal Exam GI & Abdominal Exam: Soft, Normal Bowel Sounds. absent: Distended, Tenderness - Extremities Exam Extremities Exam: Full ROM Additional comments: wound on LLE second toe with erythema, no drainage or fluctuance, dressing C/D/I - Neurological Exam Neurological Exam: Alert, Awake, CN II-XII Intact, Oriented x3 - Psychiatric Exam Psychiatric exam: Normal Affect, Normal Mood - Skin Skin Exam: Dry, Intact, Normal Color Assessment and Plan - Assessment and Plan (Free Text) Assessment: 72 yo female with heavy alcohol abuse history with MRSA in left foot ulcer/wound in 2nd toe. Supportive care. On Clindamycin for treatment at this time. Consider use of Bactrim or Doxycycline for treatment. No osteomyelitis in imaging studies. ESR of 54. Local wound care. Spoke with Dr. Harley. Thank you for allowing me to participate in the care of the patient, we will follow with you.
--- NOTE | 2018-04-06 18:56 | PN ---
DATE: 04/06/2018 LOCATION: Room 302, bed 1. REASON FOR CONSULTATION: Atrial fibrillation, hypertension. SUBJECTIVE: The patient is lying flat in bed without chest pain, shortness of breath, palpitations. The patient was admitted to medical floor with alcoholic intoxication and the patient developed atrial fibrillation which was probably related to alcohol level of 201. The patient is currently in sinus rhythm and denies any chest pain, shortness of breath, or palpitation. The patient is now in transitional care unit for deconditioning and physical therapy. PHYSICAL EXAMINATION: VITAL SIGNS: Blood pressure 126/93, respirations 18, pulse 70, and is afebrile. HEENT: Head is normocephalic. Eyes, pupils normal. Conjunctivae normal. Nose and throat normal. NECK: JVP low. Carotid equal. THORAX: AP diameter normal. LUNGS: Clear. CARDIOVASCULAR: S1, S2. ABDOMEN: Soft, nontender. No organomegaly. Bowel sounds normal. EXTREMITIES: No clubbing. No cyanosis. LABORATORY DATA: WBC 5.9, hemoglobin 11.2, hematocrit 34.4, and platelets 140. Sodium 135, potassium 4.1, BUN 16, creatinine 0.6. Phosphorus, magnesium, and bilirubin normal. AST 119, ALT 78. Total protein 6.9, albumin 3.7, globulin 3.2. The patient had echo on 11/29/2017. It showed normal LV ejection fraction of 55%, moderate tricuspid regurgitation, RVSP 59 mmHg, trace mitral and trace aortic regurgitation. DIAGNOSES: Atrial fibrillation which converted to sinus rhythm spontaneously, probably related to high level of alcohol on admission. The patient was admitted with alcohol abuse and alcohol level on admission was 201, hypertension, facial palsy, transient ischemic attack, glaucoma, cirrhosis of liver, anxiety, depression, panic disorder, moderate pulmonary hypertension, alcohol abuse, osteoporosis, gastritis, and deconditioning. PLAN: The patient is on spironolactone 25 daily, aspirin 81 mg daily, metoprolol 50 b.i.d., along with Protonix 40 daily, thiamine 100 mg daily. We will continue present therapy. Lise Mary MD
[2018-04-06] MEDS: Tmp-Smz 800 mg-160 mg DS Tab PO SCH (19:03)
[2018-04-07] MEDS: Pantoprazole 40 mg EC Tab PO SCH (05:15)
[2018-04-07 06:50] LABS: BASO # 0.03 K/mm3 (0.0-2.0); BASO % 0.5 % (0.0-3.0); EOS # 0.2 (0.0-0.7); EOS % 3.9 % (1.5-5.0); GRAN # 3.17 (1.4-6.5); GRAN % 54.2 % (50.0-68.0); HEMOGLOBIN 10.7 g/dL (12.0-16.0); LYMPH # 1.7 (1.2-3.4); LYMPH % 28.2 % (22.0-35.0); MEAN CELL VOLUME 96.5 fl (80.0-105.0); MEAN CORPUSCULAR HGB CONC 32.1 g/dl (31.0-37.0); MEAN PLATELET VOLUME 10.1 fl (7.0-11.0); MONO # 0.8 (0.1-0.6); MONO % 13.2 % (1.0-6.0); RBC 3.45 10^6/uL (3.5-6.1); RED CELL DISTRIBUTION WIDTH 14.4 % (11.5-14.5); WHITE BLOOD COUNT 5.9 10^3/uL (4.5-11.0)
[2018-04-07 06:52] LABS: ALB/GLOB RATIO 1.2 (1.1-1.8); ALBUMIN 3.7 g/dL (3.0-4.8); ALT/SGPT 70 U/L (7-56); AST/SGOT 75 U/L (14-36); BLOOD UREA NITROGEN 24 mg/dL (7-21); CALCIUM 9.7 mg/dL (8.4-10.5); GFR NON-AFRICAN AMERICAN > 60
[2018-04-07] MEDS: Sucralfate 1 gm/10 ml Oral Susp UD PO SCH ×4 (07:09→21:12)
[2018-04-07] MEDS: Multivitamin With Minerals Tab PO SCH (08:05)
[2018-04-07] MEDS: Nystatin 100,000 Units/ml Oral Susp 5 ml UD PO SCH ×4 (09:28→21:12)
[2018-04-07] MEDS: Tmp-Smz 800 mg-160 mg DS Tab PO SCH ×2 (09:28→18:04)
--- NOTE | 2018-04-07 11:26 | CP.PCM.PN ---
<Kaz Ramirez - Last Filed: 04/07/18 11:19> Subjective - Date & Time of Evaluation Date of Evaluation: 04/07/18 Time of Evaluation: 09:15 - Subjective Subjective: Kaz Ramirez Y1 Hospital Progress Note Patient seen and examined this morning. No acute events reported overnight. Had some trouble sleeping overnight, will increase seroquel to 50mg HS tonight. Observed cycling with PT this morning. Today is day 3 in the TCU. Offers no complaints today. Objective - Vital Signs/Intake and Output Vital Signs (last 24 hours): Temp Pulse Resp BP Pulse Ox 97.8 F 75 18 102/59 L 100 04/06/18 16:00 04/06/18 16:00 04/06/18 16:00 04/07/18 08:04 04/06/18 16:00 - Medications Medications: Current Medications Al Hydrox/Mg Hydrox/Simethicone (Maalox Plus 30 Ml) 30 ml PO DAILY PRN; Protocol PRN Reason: Indigestion / Heartburn Last Admin: 04/06/18 09:50 Dose: 30 ml Aspirin (Aspirin Chewable) 81 mg PO DAILY [facility]; Protocol Last Admin: 04/07/18 09:28 Dose: 81 mg Clindamycin HCl (Cleocin) 150 mg PO Q6 [facility]; Protocol Last Admin: 04/07/18 05:15 Dose: 150 mg Folic Acid (Folic Acid) 1 mg PO DAILY [facility]; Protocol Last Admin: 04/07/18 09:28 Dose: 1 mg Ketorolac Tromethamine (Toradol) 15 mg IVP Q6H PRN; Protocol PRN Reason: Pain, moderate (4-7) Last Admin: 04/06/18 11:06 Dose: 15 mg Lorazepam (Ativan) 1 mg PO Q4H PRN; Protocol PRN Reason: Anxiety Last Admin: 04/07/18 08:08 Dose: 1 mg Metoprolol Tartrate (Lopressor) 50 mg PO 0800,1800 [facility]; Protocol Last Admin: 04/07/18 08:04 Dose: Not Given Multivitamins/Minerals (Therapeutic-M Tab) 1 tab PO 0800 [facility]; Protocol Last Admin: 04/07/18 08:05 Dose: 1 tab Nystatin (Nystatin Oral Susp) 5 ml PO QID [facility]; Protocol Last Admin: 04/07/18 09:28 Dose: 5 ml Ondansetron HCl (Zofran Inj) 4 mg IVP Q6H PRN; Protocol PRN Reason: Nausea/Vomiting Last Admin: 04/06/18 01:06 Dose: 4 mg Pantoprazole Sodium (Protonix Ec Tab) 40 mg PO 0600 [facility]; Protocol Last Admin: 04/07/18 05:15 Dose: 40 mg Quetiapine Fumarate (Seroquel) 50 mg PO HS [facility]; Protocol Spironolactone (Aldactone) 25 mg PO DAILY [facility]; Protocol Last Admin: 04/07/18 09:27 Dose: Not Given Sucralfate (Carafate Oral Susp) 1 gm PO 0630,1130,1630,2200 [facility] Last Admin: 04/07/18 07:09 Dose: 1 gm Thiamine HCl (Vitamin B1 Tab) 100 mg PO DAILY [facility]; Protocol Last Admin: 04/07/18 09:29 Dose: 100 mg Trimethoprim/Sulfamethoxazole (Bactrim Ds Tab) 1 tab PO BID [facility]; Protocol Last Admin: 04/07/18 09:28 Dose: 1 tab - Labs Labs: 04/07/18 05:00 04/07/18 05:00 - Additional Findings Additional findings: - Constitutional Appears: Well, No Acute Distress, Unkempt - Head Exam Head Exam: ATRAUMATIC, NORMAL INSPECTION, NORMOCEPHALIC - Eye Exam Eye Exam: EOMI, PERRL - ENT Exam ENT Exam: Mucous Membranes Dry - Respiratory Exam Respiratory Exam: Clear to Auscultation Bilateral, NORMAL BREATHING PATTERN - Cardiovascular Exam Cardiovascular Exam: REGULAR RHYTHM, RRR, +S1, S2. absent: Murmur - GI/Abdominal Exam GI & Abdominal Exam: Normal Bowel Sounds, Soft. absent: Tenderness, Rebound, Distended - Extremities Exam Extremities exam: Positive for: full ROM Additional comments: wound on LLE second toe with erythema, no drainage or fluctuance, dressing C/D/I - Neurological Exam Neurological exam: Altered, Oriented x3, CN II-XII Intact - Skin Skin Exam: Dry, Intact, Warm Assessment and Plan - Assessment and Plan (Free Text) Assessment: 72 year old Lao speaking female with past medical history hypertension, facial palsy, TIA, glaucoma, cirrhosis, osteoporosis, colitis, gastritis, UTI, anxiety, depression, panic disorder, and urinary retention presents with abdominal pain and alcohol withdrawal, now admitted to TCU; today is TCU day 3. Plan: Toe abscess - Podiatry on consult - s/p I&D with no complications - left foot xray negative for acute findings - wound culture growing gram positive cocci - MRI shows no sign of OM - admitted to TCU, today is day 3 - working without with complaint with physical therapy - Clindamycin 150 mg PO Q6H. Per ID, may consider use of bactrim or doxycycline for treatment. History of Anxiety/depression - currently no suicidal ideations - Psychiatry on consult - Seroquel increased to 50mg today to help with sleeping Atrial fibrillation - one prior episode, currently regular rate - outpatient stress test as per cardiology Dr. Mg's recs - TSH wnl Alcohol withdrawal - serum alcohol on admission 201 - UDS negative - CIWA protocol - Ativan 1mg prn, Zofran 4 mg Q6PRN - multivitamin, thiamine, folic acid daily - avoid librium and valium due to cirrhosis - cessation counseling Atypical chest pain - resolved - initial EKG showed ST at 110 bpm - troponins neg x3 - Aspirin 81 daily, Metoprolol Tartrate 25 mg daily, Spironolactone 25 mg daily - Toradol 30 mg Q6H PRN for pain Abdominal pain - resolved - history of gastritis and cirrhosis - Abdominal CT: no acute abdominal or pelvic pathology. hepatomegaly and fatty liver. colonic diverticulosis with no evidence of diverticulitis, fibroid uterus - Abdominal ultrasound 01/2018: increased echogenicity of liver parenchyma, no mass, no intrahepatic bile duct dilation - Protonix [facility], Maalox and sucralfate PRN PPX -protonix, lovenox Patient seen and case discussed with attending, Dr. Harley <Lise Harley - Last Filed: 04/07/18 18:09> Objective - Vital Signs/Intake and Output Vital Signs (last 24 hours): Temp Pulse Resp BP Pulse Ox 98.3 F 76 20 97/64 L 100 04/07/18 16:00 04/07/18 16:00 04/07/18 16:00 04/07/18 16:00 04/07/18 16:00 - Medications Medications: Current Medications Al Hydrox/Mg Hydrox/Simethicone (Maalox Plus 30 Ml) 30 ml PO DAILY PRN; Protocol PRN Reason: Indigestion / Heartburn Last Admin: 04/06/18 09:50 Dose: 30 ml Aspirin (Aspirin Chewable) 81 mg PO DAILY [facility]; Protocol Last Admin: 04/07/18 09:28 Dose: 81 mg Clindamycin HCl (Cleocin) 150 mg PO Q6 [facility]; Protocol Last Admin: 04/07/18 12:18 Dose: 150 mg Folic Acid (Folic Acid) 1 mg PO DAILY [facility]; Protocol Last Admin: 04/07/18 09:28 Dose: 1 mg Ketorolac Tromethamine (Toradol) 15 mg IVP Q6H PRN; Protocol PRN Reason: Pain, moderate (4-7) Last Admin: 04/06/18 11:06 Dose: 15 mg Lorazepam (Ativan) 1 mg PO Q4H PRN; Protocol PRN Reason: Anxiety Last Admin: 04/07/18 08:08 Dose: 1 mg Metoprolol Tartrate (Lopressor) 50 mg PO 0800,1800 [facility]; Protocol Last Admin: 04/07/18 08:04 Dose: Not Given Multivitamins/Minerals (Therapeutic-M Tab) 1 tab PO 0800 [facility]; Protocol Last Admin: 04/07/18 08:05 Dose: 1 tab Nystatin (Nystatin Oral Susp) 5 ml PO QID [facility]; Protocol Last Admin: 04/07/18 13:33 Dose: Not Given Ondansetron HCl (Zofran Inj) 4 mg IVP Q6H PRN; Protocol PRN Reason: Nausea/Vomiting Last Admin: 04/06/18 01:06 Dose: 4 mg Pantoprazole Sodium (Protonix Ec Tab) 40 mg PO 0600 [facility]; Protocol Last Admin: 04/07/18 05:15 Dose: 40 mg Quetiapine Fumarate (Seroquel) 50 mg PO HS [facility]; Protocol Spironolactone (Aldactone) 25 mg PO DAILY [facility]; Protocol Last Admin: 04/07/18 09:27 Dose: Not Given Sucralfate (Carafate Oral Susp) 1 gm PO 0630,1130,1630,2200 [facility] Last Admin: 04/07/18 12:18 Dose: 1 gm Thiamine HCl (Vitamin B1 Tab) 100 mg PO DAILY [facility]; Protocol Last Admin: 04/07/18 09:29 Dose: 100 mg Trimethoprim/Sulfamethoxazole (Bactrim Ds Tab) 1 tab PO BID [facility]; Protocol Last Admin: 04/07/18 09:28 Dose: 1 tab - Labs Labs: 04/07/18 05:00 04/07/18 05:00 Attending/Attestation - Attestation I have personally seen and examined this patient.: Yes I have fully participated in the care of the patient.: Yes I have reviewed all pertinent clinical information, including history, physical exam and plan: Yes Notes (Text): 04/07/18 18:06 Medical record note made by the resident after discussion with my direction and input after the patient was personally seen and examined by me. I have reviewed the chart and agree that the record accurately reflects by personal performance of the history, physical exam, data review, and medical decision-making, in the course for the patient. I have also personally directed the plan of care. 72 year old Lao speaking female with past medical history of hypertension, facial palsy, TIA, glaucoma, cirrhosis, osteoporosis, colitis, gastritis, UTI, anxiety, depression and panic disorder, was initally admitted to INPATIENT with 2 week history of drinking 2 pints of vodka daily and one week of loss of appetite. There was was also s/p numerous falls. Patient was treated for alcohol withdrawal. Patient epigatric pain is due to Peptic ulcer disease, has responded well to PPI.EKG was negative for ischemic changes, serial troponins were normal. Abdominal CT showed no acute abdominal or pelvic pathology, hepatomegaly and fatty liver, colonic diverticulosis with no evidence of diverticulitis, fibroid uterus. Previous abdominal ultrasound from two months prior showed increased echogenicity of liver parenchyma, no mass, no intrahepatic bile duct dilation. Patient was also noted to have a toe abscess. Podiatry was consulted. Patient underwent I&D with no complications. Left foot xray was negative for acute findings. MRI was negative for osteomyelitis. Wound culture grew MRSA., ,ID is following. Currently she is on oral Bactrim. Patient also had an episode of afib with monitor noting tachycardia into 130s that spontaneously resolved to NSR. Cardiology was consulted. TSH was noted to be in normal range. Patient was started on seroquel as per psychiatry recommendations for anxiety, Patient was later transferred to TCU for rehabilitation. We will continue wound care and current therapy.Patient is participating in physical therapy.
--- NOTE | 2018-04-07 14:17 | CP.PCM.PN ---
Subjective - Date & Time of Evaluation Date of Evaluation: 04/07/18 Time of Evaluation: 14:00 - Subjective Subjective: Infectious Disease Follow Up: April 06, 2018 72 yo primarily [place]an speaking female with left foot 2nd toe ulceration and erythema. Patient with past medical history of hypertension, facial palsy, TIA, glaucoma, cirrhosis, osteoporosis, colitis, gastritis, UTI, anxiety, depression, panic disorder, and urinary retention presenting with 2 week history of drinking 2 pints of vodka daily and one week of loss of appetite. Patient was also s/p numerous falls. Patient reported headache, dizziness, tremors, tinnitus, but no hearing loss. Patient had 10 episodes of vomiting with blood tinged vomit and numerous episodes of watery stools mixed with blood. Patient denies chest pain, heart palpitations, and shortness of breath. 12-point ROS was unreliable due to patient's somnolence and mental status. On admission patient had serum alcohol level 201, negative UDS. Patient received Ativan PRN was given with multivitamin, thiamine, folic acid. Patient also presented of abdominal pain. Abdominal CT showed no acute abdominal or pelvic pathology, hepatomegaly and fatty liver, colonic diverticulosis with no evidence of diverticulitis, fibroid uterus. Previous abdominal ultrasound from two months prior showed increased echogenicity of liver parenchyma, no mass, no intrahepatic bile duct dilation. Patient has a toe abscess. Left foot xray was negative for acute findings and MRI was negative for osteomyelitis. Wound culture grew MRSA. In TCU now. No current complaints. Objective - Vital Signs/Intake and Output Vital Signs (last 24 hours): Temp Pulse Resp BP Pulse Ox 97.8 F 75 18 102/59 L 100 04/06/18 16:00 04/06/18 16:00 04/06/18 16:00 04/07/18 08:04 04/06/18 16:00 - Medications Medications: Current Medications Al Hydrox/Mg Hydrox/Simethicone (Maalox Plus 30 Ml) 30 ml PO DAILY PRN; Protocol PRN Reason: Indigestion / Heartburn Last Admin: 04/06/18 09:50 Dose: 30 ml Aspirin (Aspirin Chewable) 81 mg PO DAILY [facility]; Protocol Last Admin: 04/07/18 09:28 Dose: 81 mg Clindamycin HCl (Cleocin) 150 mg PO Q6 [facility]; Protocol Last Admin: 04/07/18 12:18 Dose: 150 mg Folic Acid (Folic Acid) 1 mg PO DAILY [facility]; Protocol Last Admin: 04/07/18 09:28 Dose: 1 mg Ketorolac Tromethamine (Toradol) 15 mg IVP Q6H PRN; Protocol PRN Reason: Pain, moderate (4-7) Last Admin: 04/06/18 11:06 Dose: 15 mg Lorazepam (Ativan) 1 mg PO Q4H PRN; Protocol PRN Reason: Anxiety Last Admin: 04/07/18 08:08 Dose: 1 mg Metoprolol Tartrate (Lopressor) 50 mg PO 0800,1800 [facility]; Protocol Last Admin: 04/07/18 08:04 Dose: Not Given Multivitamins/Minerals (Therapeutic-M Tab) 1 tab PO 0800 [facility]; Protocol Last Admin: 04/07/18 08:05 Dose: 1 tab Nystatin (Nystatin Oral Susp) 5 ml PO QID [facility]; Protocol Last Admin: 04/07/18 13:33 Dose: Not Given Ondansetron HCl (Zofran Inj) 4 mg IVP Q6H PRN; Protocol PRN Reason: Nausea/Vomiting Last Admin: 04/06/18 01:06 Dose: 4 mg Pantoprazole Sodium (Protonix Ec Tab) 40 mg PO 0600 [facility]; Protocol Last Admin: 04/07/18 05:15 Dose: 40 mg Quetiapine Fumarate (Seroquel) 50 mg PO HS [facility]; Protocol Spironolactone (Aldactone) 25 mg PO DAILY [facility]; Protocol Last Admin: 04/07/18 09:27 Dose: Not Given Sucralfate (Carafate Oral Susp) 1 gm PO 0630,1130,1630,2200 [facility] Last Admin: 04/07/18 12:18 Dose: 1 gm Thiamine HCl (Vitamin B1 Tab) 100 mg PO DAILY [facility]; Protocol Last Admin: 04/07/18 09:29 Dose: 100 mg Trimethoprim/Sulfamethoxazole (Bactrim Ds Tab) 1 tab PO BID [facility]; Protocol Last Admin: 04/07/18 09:28 Dose: 1 tab - Labs Labs: 04/07/18 05:00 04/07/18 05:00 - Constitutional Appears: Non-toxic, No Acute Distress, Chronically Ill - Head Exam Head Exam: ATRAUMATIC, NORMOCEPHALIC - Eye Exam Eye Exam: EOMI, PERRL Pupil Exam: NORMAL ACCOMODATION, PERRL - ENT Exam ENT Exam: Mucous Membranes Moist, Normal External Ear Exam, TM's Normal Bilaterally - Neck Exam Neck Exam: Full ROM, Normal Inspection - Respiratory Exam Respiratory Exam: Clear to Ausculation Bilateral, NORMAL BREATHING PATTERN. absent: Rales, Rhonchi, Wheezes - Cardiovascular Exam Cardiovascular Exam: REGULAR RHYTHM, RRR, +S1, +S2 - GI/Abdominal Exam GI & Abdominal Exam: Soft, Normal Bowel Sounds. absent: Distended, Tenderness - Extremities Exam Extremities Exam: Full ROM Additional comments: wound on LLE second toe with erythema, no drainage or fluctuance, dressing C/D/I - Neurological Exam Neurological Exam: Alert, Awake, CN II-XII Intact, Oriented x3 - Psychiatric Exam Psychiatric exam: Normal Affect, Normal Mood - Skin Skin Exam: Dry, Intact, Normal Color Assessment and Plan - Assessment and Plan (Free Text) Assessment: 72 yo female with heavy alcohol abuse history with MRSA in left foot ulcer/wound in 2nd toe. Supportive care. On Clindamycin and Bactrim for treatment. No osteomyelitis in imaging studies. ESR of 54. Local wound care. Would stop Clindamycin. Spoke with Dr. Harley. Thank you for allowing me to participate in the care of the patient, we will follow with you.
--- NOTE | 2018-04-07 20:31 | PN ---
DATE: 04/07/2018 LOCATION: Room 302, bed 1. REASON FOR CONSULTATION: Followup atrial fibrillation and hypertension. SUBJECTIVE: The patient is lying flat in bed without chest pain, shortness of breath, or palpitations. Complains of vague abdominal pain. No nausea or vomiting. The patient has history of heavy alcoholism and alcohol level on admission was 201 and the patient developed atrial fibrillation, which converted spontaneously to sinus rhythm, most likely atrial fibrillation was related to heavy alcoholism. The patient also followed by Dr. Larson, Infectious Disease, for ulcer on the left foot second toe for which she is getting antibiotic. PHYSICAL EXAMINATION: VITAL SIGNS: Blood pressure 149/78, respirations 18, pulse 75, temperature 97.8. Yesterday, blood pressure was 126/93. HEENT: Head is normocephalic. Eyes, pupils normal. Conjunctivae slightly pale. NECK: JVP low. Carotid equal. THORAX: AP diameter normal. LUNGS: Clear. CARDIOVASCULAR: S1, S2. Regular rhythm. ABDOMEN: Soft. Bowel sounds normal. EXTREMITIES: No clubbing. No cyanosis. LABORATORY DATA: WBC 5.9, hemoglobin 10.7, hematocrit 33.3, and platelets 206. Sodium 136, potassium 4, BUN 24, and creatinine 0.6. Random glucose 119, AST 75, ALT 70. DIAGNOSES: Atrial fibrillation which converted to normal sinus rhythm spontaneously, probably related to high level of alcohol on admission. The patient has history of alcohol abuse and alcohol level in blood was 201, hypertension, facial palsy, transient ischemic attack, glaucoma, cirrhosis of liver, anxiety, depression, panic disorder, moderate pulmonary hypertension, osteoporosis, gastritis, and deconditioning. PLAN: The patient continue to get physical therapy. The patient is on spironolactone 25 daily, aspirin 81 daily, metoprolol 50 b.i.d., Protonix 40 daily, thiamine 100 mg daily, metoprolol 50 b.i.d., and clindamycin 150 mg p.o. every 6 hourly. We will continue to follow closely. Lise Mary MD
[2018-04-08] MEDS: Pantoprazole 40 mg EC Tab PO SCH (05:29)
[2018-04-08] MEDS: Sucralfate 1 gm/10 ml Oral Susp UD PO SCH ×4 (05:33→21:12)
[2018-04-08] MEDS: Multivitamin With Minerals Tab PO SCH (08:07)
[2018-04-08] MEDS: Tmp-Smz 800 mg-160 mg DS Tab PO SCH ×2 (11:00→17:20)
[2018-04-08] MEDS: Nystatin 100,000 Units/ml Oral Susp 5 ml UD PO SCH ×4 (11:00→21:12)
[2018-04-08] MEDS: Alum-Mag Hydrox-Simethicone Susp (30 mL) PO PRN (13:40)
--- NOTE | 2018-04-08 14:01 | CP.PCM.PN ---
<Windy Prado - Last Filed: 04/08/18 13:57> Subjective - Date & Time of Evaluation Date of Evaluation: 04/08/18 Time of Evaluation: 13:58 - Subjective Subjective: Podiatry progress note for Dr. Harris/sary 72F seen and evaluated at bedside. Seen resting comfortably. Denies pain to second digit and to the foot. Denies acute overnight events. Denies f/n/v/sob/cp. Has no other acute complaints at this time. Objective - Vital Signs/Intake and Output Vital Signs (last 24 hours): Temp Pulse Resp BP Pulse Ox 98.3 F 81 20 107/70 100 04/07/18 16:00 04/08/18 08:08 04/07/18 16:00 04/08/18 08:08 04/07/18 16:00 - Medications Medications: Current Medications Al Hydrox/Mg Hydrox/Simethicone (Maalox Plus 30 Ml) 30 ml PO DAILY [facility]; Protocol PRN Reason: Indigestion / Heartburn Last Admin: 04/08/18 13:40 Dose: 30 ml Aspirin (Aspirin Chewable) 81 mg PO DAILY [facility]; Protocol Last Admin: 04/08/18 11:00 Dose: 81 mg Folic Acid (Folic Acid) 1 mg PO DAILY [facility]; Protocol Last Admin: 04/08/18 11:00 Dose: 1 mg Ketorolac Tromethamine (Toradol) 15 mg IVP Q6H PRN; Protocol PRN Reason: Pain, moderate (4-7) Last Admin: 04/08/18 08:52 Dose: 15 mg Lorazepam (Ativan) 1 mg PO Q4H PRN; Protocol PRN Reason: Anxiety Last Admin: 04/08/18 01:08 Dose: 1 mg Metoprolol Tartrate (Lopressor) 50 mg PO 0800,1800 [facility]; Protocol Last Admin: 04/08/18 08:08 Dose: 50 mg Multivitamins/Minerals (Therapeutic-M Tab) 1 tab PO 0800 [facility]; Protocol Last Admin: 04/08/18 08:07 Dose: 1 tab Nystatin (Nystatin Oral Susp) 5 ml PO QID [facility]; Protocol Last Admin: 04/08/18 13:39 Dose: 5 ml Ondansetron HCl (Zofran Inj) 4 mg IVP Q6H PRN; Protocol PRN Reason: Nausea/Vomiting Last Admin: 04/07/18 21:26 Dose: 4 mg Pantoprazole Sodium (Protonix Ec Tab) 40 mg PO 0600 [facility]; Protocol Last Admin: 04/08/18 05:29 Dose: 40 mg Quetiapine Fumarate (Seroquel) 50 mg PO HS [facility]; Protocol Last Admin: 04/07/18 21:13 Dose: 50 mg Spironolactone (Aldactone) 25 mg PO DAILY [facility]; Protocol Last Admin: 04/08/18 11:08 Dose: Not Given Sucralfate (Carafate Oral Susp) 1 gm PO 0630,1130,1630,2200 [facility] Last Admin: 04/08/18 12:09 Dose: 1 gm Thiamine HCl (Vitamin B1 Tab) 100 mg PO DAILY [facility]; Protocol Last Admin: 04/08/18 11:00 Dose: 100 mg Trimethoprim/Sulfamethoxazole (Bactrim Ds Tab) 1 tab PO BID [facility]; Protocol Last Admin: 04/08/18 11:00 Dose: 1 tab - Labs Labs: 04/07/18 05:00 04/07/18 05:00 - Constitutional Appears: Well, Non-toxic - Head Exam Head Exam: ATRAUMATIC, NORMOCEPHALIC - Eye Exam Eye Exam: Normal appearance Pupil Exam: NORMAL ACCOMODATION - ENT Exam ENT Exam: Mucous Membranes Moist - Extremities Exam Additional comments: Left lower extremity exam: Vascular: DP/PT 2/4, CFT <3 secs x 5, TG warm to warm ( warmer on the second digit), erythema and edema noted to the second digit neuro: protective sensation intact via ipswich 4/4 derm: healed wound noted at the previous site of incision and drainage, no active drainage, no fluctuance, no other open lesions, no IDM, no clinical signs of infection ortho: no pain upon palpation of the second digit, rigid hammertoe of the second digit Assessment and Plan - Assessment and Plan (Free Text) Assessment: 72F with left second digit incision and drainage Plan: Patient seen and evaluated with Dr. Harris Afebrile, absent leukocytosis Wound cultures : MRSA Left foot x-rays: no osseous erosions noted, no other acute Left foot MRI: no evidence of osteomyelitis MADAN/PVR ordered- WNL ESR-54 CRP-4.75 No dressing needed as the wound is not open No plan for intervention Stable for discharge from podiatry point of view Podiatry will now sign off on this patient, please reconsult if necessary thank you for allowing us to partake in care of this patient <Michelle Galvan - Last Filed: 04/14/18 16:06> Objective - Vital Signs/Intake and Output Vital Signs (last 24 hours): Temp Pulse Resp BP Pulse Ox 98.1 F 91 H 18 101/68 97 04/12/18 06:00 04/12/18 06:00 04/12/18 06:00 04/12/18 09:49 04/12/18 06:00 - Labs Labs: 04/11/18 06:55 04/11/18 06:55 Attending/Attestation - Attestation I have personally seen and examined this patient.: Yes I have fully participated in the care of the patient.: Yes I have reviewed all pertinent clinical information, including history, physical exam and plan: Yes
--- NOTE | 2018-04-08 15:48 | PN ---
DATE: 04/08/2018 LOCATION: The patient is in room 302, bed 1. REASON FOR CONSULTATION: Atrial fibrillation and hypertension. SUBJECTIVE: The patient was admitted with atypical chest pain and shortness of breath. She has history of drinking heavy, and on medical floor at the time of admission the alcohol level was 201, and the patient went into atrial fibrillation, which converted spontaneously to sinus rhythm, since then the patient maintaining sinus rhythm. Now she is in Transitional Care Unit for deconditioning and physical therapy. The patient is lying flat in bed without chest pain or shortness of breath or palpitation. She is still offering non-compliance vague abdominal discomfort. Denies any nausea, vomiting, hematemesis or melena. PHYSICAL EXAMINATION VITAL SIGNS: Blood pressure is 107/70, respirations 20, pulse 81 and temperature 98.3. HEENT: Head is normocephalic. Eyes: Pupils normal. Conjunctivae slightly pale. NECK: JVP low. Carotid equal. THORAX: AP diameter normal. LUNGS: Clear. CARDIOVASCULAR: S1 and S2. ABDOMEN: Soft and nontender. No organomegaly. Bowel sounds normal. EXTREMITIES: No clubbing. No cyanosis. LABORATORY DATA: WBC 5.9, hemoglobin 10.7, hematocrit 33.3, and platelets 206. Sodium 136, potassium 4.0, BUN 24, creatinine 0.6, calcium 9.7, phosphorus 4.2, magnesium 2.4, AST 75 and ALT 70. DIAGNOSES: Atrial fibrillation, converted spontaneously to sinus rhythm, most probably this episode was related to high level of alcohol, level was 201, hypertension, facial palsy, history of transient ischemic attack, glaucoma, cirrhosis of liver, anxiety, depression, panic disorder, moderate pulmonary hypertension, osteoporosis, gastritis and deconditioning. PLAN: We will continue aspirin 81 mg daily, spironolactone 25 daily, metoprolol 50 b.i.d., folic acid 1 mg daily, Protonix 40 daily, Seroquel 50 mg at bedtime, and thiamine 100 mg daily. We will continue physical therapy. We will follow with you. Lise Mary MD
--- NOTE | 2018-04-08 18:26 | CP.PCM.PN ---
Subjective - Date & Time of Evaluation Date of Evaluation: 04/08/18 Time of Evaluation: 17:00 - Subjective Subjective: Infectious Disease Follow Up: April 08, 2018 72 yo primarily Tuvaluan speaking female with left foot 2nd toe ulceration and erythema. Patient with past medical history of hypertension, facial palsy, TIA, glaucoma, cirrhosis, osteoporosis, colitis, gastritis, UTI, anxiety, depression, panic disorder, and urinary retention presenting with 2 week history of drinking 2 pints of vodka daily and one week of loss of appetite. Patient was also s/p numerous falls. Patient reported headache, dizziness, tremors, tinnitus, but no hearing loss. Patient had 10 episodes of vomiting with blood tinged vomit and numerous episodes of watery stools mixed with blood. Patient denies chest pain, heart palpitations, and shortness of breath. 12-point ROS was unreliable due to patient's somnolence and mental status. On admission patient had serum alcohol level 201, negative UDS. Patient received Ativan PRN was given with multivitamin, thiamine, folic acid. Patient also presented of abdominal pain. Abdominal CT showed no acute abdominal or pelvic pathology, hepatomegaly and fatty liver, colonic diverticulosis with no evidence of diverticulitis, fibroid uterus. Previous abdominal ultrasound from two months prior showed increased echogenicity of liver parenchyma, no mass, no intrahepatic bile duct dilation. Patient has a toe abscess. Left foot xray was negative for acute findings and MRI was negative for osteomyelitis. Wound culture grew MRSA. In TCU now. Bactrim PO for treatment at this time. No current complaints. Objective - Vital Signs/Intake and Output Vital Signs (last 24 hours): Temp Pulse Resp BP Pulse Ox 98.7 F 77 20 103/71 95 04/08/18 10:00 04/08/18 17:21 04/08/18 10:00 04/08/18 17:21 04/08/18 10:00 - Medications Medications: Current Medications Al Hydrox/Mg Hydrox/Simethicone (Maalox Plus 30 Ml) 30 ml PO DAILY PRN; Protocol PRN Reason: Indigestion / Heartburn Last Admin: 04/08/18 13:40 Dose: 30 ml Aspirin (Aspirin Chewable) 81 mg PO DAILY [facility]; Protocol Last Admin: 04/08/18 11:00 Dose: 81 mg Folic Acid (Folic Acid) 1 mg PO DAILY [facility]; Protocol Last Admin: 04/08/18 11:00 Dose: 1 mg Ketorolac Tromethamine (Toradol) 15 mg IVP Q6H PRN; Protocol PRN Reason: Pain, moderate (4-7) Last Admin: 04/08/18 08:52 Dose: 15 mg Lorazepam (Ativan) 1 mg PO Q4H PRN; Protocol PRN Reason: Anxiety Last Admin: 04/08/18 01:08 Dose: 1 mg Metoprolol Tartrate (Lopressor) 50 mg PO 0800,1800 [facility]; Protocol Last Admin: 04/08/18 17:21 Dose: 50 mg Multivitamins/Minerals (Therapeutic-M Tab) 1 tab PO 0800 [facility]; Protocol Last Admin: 04/08/18 08:07 Dose: 1 tab Nystatin (Nystatin Oral Susp) 5 ml PO QID [facility]; Protocol Last Admin: 04/08/18 17:22 Dose: 5 ml Ondansetron HCl (Zofran Inj) 4 mg IVP Q6H PRN; Protocol PRN Reason: Nausea/Vomiting Last Admin: 04/07/18 21:26 Dose: 4 mg Pantoprazole Sodium (Protonix Ec Tab) 40 mg PO 0600 [facility]; Protocol Last Admin: 04/08/18 05:29 Dose: 40 mg Quetiapine Fumarate (Seroquel) 50 mg PO HS [facility]; Protocol Last Admin: 04/07/18 21:13 Dose: 50 mg Spironolactone (Aldactone) 25 mg PO DAILY [facility]; Protocol Last Admin: 04/08/18 11:08 Dose: Not Given Sucralfate (Carafate Oral Susp) 1 gm PO 0630,1130,1630,2200 [facility] Last Admin: 04/08/18 17:21 Dose: 1 gm Thiamine HCl (Vitamin B1 Tab) 100 mg PO DAILY [facility]; Protocol Last Admin: 04/08/18 11:00 Dose: 100 mg Trimethoprim/Sulfamethoxazole (Bactrim Ds Tab) 1 tab PO BID [facility]; Protocol Last Admin: 04/08/18 17:20 Dose: 1 tab - Labs Labs: 04/07/18 05:00 04/07/18 05:00 - Constitutional Appears: Non-toxic, No Acute Distress, Chronically Ill - Head Exam Head Exam: ATRAUMATIC, NORMOCEPHALIC - Eye Exam Eye Exam: EOMI, PERRL Pupil Exam: NORMAL ACCOMODATION, PERRL - ENT Exam ENT Exam: Mucous Membranes Moist, Normal External Ear Exam, TM's Normal Bilaterally - Neck Exam Neck Exam: Full ROM, Normal Inspection - Respiratory Exam Respiratory Exam: Clear to Ausculation Bilateral, NORMAL BREATHING PATTERN. absent: Rales, Rhonchi, Wheezes - Cardiovascular Exam Cardiovascular Exam: REGULAR RHYTHM, RRR, +S1, +S2 - GI/Abdominal Exam GI & Abdominal Exam: Soft, Normal Bowel Sounds. absent: Distended, Tenderness - Extremities Exam Extremities Exam: Full ROM Additional comments: wound on LLE second toe with erythema, no drainage or fluctuance, dressing C/D/I - Neurological Exam Neurological Exam: Alert, Awake, CN II-XII Intact, Oriented x3 - Psychiatric Exam Psychiatric exam: Normal Affect, Normal Mood - Skin Skin Exam: Intact, Normal Color Assessment and Plan - Assessment and Plan (Free Text) Assessment: 72 yo female with heavy alcohol abuse history with MRSA in left foot ulcer/wound in 2nd toe. Supportive care. On Bactrim for treatment. No osteomy elitis in imaging studies. ESR of 54. Local wound care. Local wound care. Thank you for allowing me to participate in the care of the patient, we will follow with you.
[2018-04-09] MEDS: Pantoprazole 40 mg EC Tab PO SCH (05:45)
[2018-04-09] MEDS: Sucralfate 1 gm/10 ml Oral Susp UD PO SCH ×4 (05:45→21:21)
[2018-04-09 07:15] LABS: HEMOGLOBIN 11.6 g/dL (12.0-16.0); MEAN CORPUSCULAR HEMOGLOBIN 30.9 pg (25.0-35.0); MEAN CORPUSCULAR HGB CONC 32.2 g/dl (31.0-37.0); MEAN PLATELET VOLUME 9.8 fl (7.0-11.0); RBC 3.75 10^6/uL (3.5-6.1); RED CELL DISTRIBUTION WIDTH 14.3 % (11.5-14.5); WHITE BLOOD COUNT 6.3 10^3/uL (4.5-11.0)
[2018-04-09 07:51] LABS: ALB/GLOB RATIO 1.1 (1.1-1.8); ALT/SGPT 53 U/L (7-56); AST/SGOT 61 U/L (14-36); BLOOD UREA NITROGEN 20 mg/dL (7-21); CALCIUM 10.1 mg/dL (8.4-10.5); GFR NON-AFRICAN AMERICAN > 60
[2018-04-09] MEDS: Multivitamin With Minerals Tab PO SCH (10:12)
[2018-04-09] MEDS: Nystatin 100,000 Units/ml Oral Susp 5 ml UD PO SCH ×4 (10:13→21:20)
[2018-04-09] MEDS: Tmp-Smz 800 mg-160 mg DS Tab PO SCH ×2 (10:13→17:18)
[2018-04-09 10:55] VITALS: RESP 18
--- NOTE | 2018-04-09 15:46 | PN ---
DATE: 04/09/2018 REASON FOR CONSULTATION: Atrial fibrillation and hypertension, now deconditioning the body in Transitional Care Unit. SUBJECTIVE: The patient denies any chest pain, shortness of breath, or any palpitation. The patient is not in apparent distress. PHYSICAL EXAMINATION: As follows; VITAL SIGNS: Temperature afebrile, heart rate 77, blood pressure 103/71. HEENT: PERRLA intact. NECK: Supple. No carotid bruit or thyromegaly. CHEST: Clear to auscultation. HEART: S1 and S2 regular. ABDOMEN: Soft. EXTREMITIES: Clubbing and cyanosis negative. LABORATORY DATA: Blood workup; WBC 6.3, hemoglobin 11.6, hematocrit 36, and platelet count 280. Chemistry shows; sodium 130, potassium 5.4, chloride 100, carbon dioxide 29, anion gap of 10, BUN 20, and creatinine 0.9. Magnesium 2.4. IMPRESSION: A 72-year-old female with past medical history significant for alcohol abuse, admitted with hypertension, atrial fibrillation, converted to normal sinus, most likely secondary to alcohol related arrhythmia, history of hypertension, history of transient ischemic attack, history of glaucoma, cirrhosis, deconditioning of body, depression, anxiety disorder, panic disorder, moderate pulmonary hypertension, deconditioning of body. RECOMMENDATIONS: Continue aggressive treatment in TCU. Continue spironolactone. Continue baby aspirin. Continue sucralfate. Continue metoprolol. CVS status is stable. No further episode of arrhythmia noted. Continue to rehab. Once the patient completed rehab, possibly discharge to home. Lise Mg MD [place]
--- NOTE | 2018-04-09 16:38 | CP.PCM.PN ---
<Amaury Rivero - Last Filed: 04/09/18 16:35> Subjective - Date & Time of Evaluation Date of Evaluation: 04/09/18 Time of Evaluation: 08:00 - Subjective Subjective: Amaury Rivero PGY1 Medicine Progress Note for Dr. Dueñas Patient was seen and examined at bedside this morning. She does not complain of abdominal pain, cp, sob, n/v/d, numbness/tingling of ext, fevers, chills. BP was 103/71 this morning. No adverse overnight events. A full 12 point ROS was conducted and unremarkable except as stated above. Objective - Vital Signs/Intake and Output Vital Signs (last 24 hours): Temp Pulse Resp BP Pulse Ox 98.1 F 80 18 103/64 98 04/09/18 16:00 04/09/18 16:00 04/09/18 16:00 04/09/18 10:00 04/09/18 16:00 Intake and Output: 04/09/18 04/09/18 06:59 18:59 Intake Total 360 Balance 360 - Medications Medications: Current Medications Al Hydrox/Mg Hydrox/Simethicone (Maalox Plus 30 Ml) 30 ml PO DAILY PRN; Protocol PRN Reason: Indigestion / Heartburn Last Admin: 04/08/18 13:40 Dose: 30 ml Aspirin (Aspirin Chewable) 81 mg PO DAILY [facility]; Protocol Last Admin: 04/09/18 10:13 Dose: 81 mg Folic Acid (Folic Acid) 1 mg PO DAILY [facility]; Protocol Last Admin: 04/09/18 10:13 Dose: 1 mg Ketorolac Tromethamine (Toradol) 15 mg IVP Q6H PRN; Protocol PRN Reason: Pain, moderate (4-7) Last Admin: 04/09/18 12:22 Dose: 15 mg Lorazepam (Ativan) 1 mg PO Q4H PRN; Protocol PRN Reason: Anxiety Last Admin: 04/09/18 03:44 Dose: 1 mg Metoprolol Tartrate (Lopressor) 50 mg PO 0800,1800 [facility]; Protocol Last Admin: 04/08/18 17:21 Dose: 50 mg Multivitamins/Minerals (Therapeutic-M Tab) 1 tab PO 0800 [facility]; Protocol Last Admin: 04/09/18 10:12 Dose: 1 tab Nystatin (Nystatin Oral Susp) 5 ml PO QID [facility]; Protocol Last Admin: 04/09/18 14:55 Dose: 5 ml Ondansetron HCl (Zofran Inj) 4 mg IVP Q6H PRN; Protocol PRN Reason: Nausea/Vomiting Last Admin: 04/07/18 21:26 Dose: 4 mg Pantoprazole Sodium (Protonix Ec Tab) 40 mg PO 0600 [facility]; Protocol Last Admin: 04/09/18 05:45 Dose: 40 mg Quetiapine Fumarate (Seroquel) 50 mg PO HS [facility]; Protocol Last Admin: 04/08/18 21:11 Dose: 50 mg Spironolactone (Aldactone) 25 mg PO DAILY [facility]; Protocol Last Admin: 04/08/18 11:08 Dose: Not Given Sucralfate (Carafate Oral Susp) 1 gm PO 0630,1130,1630,2200 [facility] Last Admin: 04/09/18 12:03 Dose: 1 gm Thiamine HCl (Vitamin B1 Tab) 100 mg PO DAILY [facility]; Protocol Last Admin: 04/09/18 10:14 Dose: 100 mg Trimethoprim/Sulfamethoxazole (Bactrim Ds Tab) 1 tab PO BID [facility]; Protocol Last Admin: 04/09/18 10:13 Dose: 1 tab - Labs Labs: 04/09/18 06:40 04/09/18 06:40 - Constitutional Appears: No Acute Distress - Head Exam Head Exam: ATRAUMATIC, NORMAL INSPECTION, NORMOCEPHALIC - Eye Exam Eye Exam: EOMI, Normal appearance - ENT Exam ENT Exam: Mucous Membranes Moist - Neck Exam Neck Exam: Full ROM - Respiratory Exam Respiratory Exam: Clear to Ausculation Bilateral. absent: Rales, Rhonchi, Wheezes - Cardiovascular Exam Cardiovascular Exam: RRR, +S1, +S2 - GI/Abdominal Exam GI & Abdominal Exam: Soft, Normal Bowel Sounds. absent: Firm, Guarding, Rigid, Tenderness - Extremities Exam Extremities Exam: Full ROM. absent: Calf Tenderness, Pedal Edema, Tenderness Additional comments: wound on LLE second toe with erythema, no drainage or fluctuance. - Neurological Exam Neurological Exam: Alert, Awake, Oriented x3 - Skin Skin Exam: Dry, Intact, Normal Color, Warm Assessment and Plan - Assessment and Plan (Free Text) Assessment: Patient is a 72 year old Ethiopian speaking female with past medical history hypertension, facial palsy, TIA, glaucoma, cirrhosis, osteoporosis, colitis, gastritis, UTI, anxiety, depression, panic disorder, and urinary retention presented with abdominal pain and alcohol withdrawal, now resolved. Patient was admitted to TCU on 04/05 for rehabilitation. Plan: Left Toe abscess s/p I&D - ID on consult. Remains on bactrim for a total of 10 days. - Podiatry on consult - s/p I&D with no complications - left foot xray negative for acute findings - wound culture growing gram positive cocci - MRI negative for osteo Episodes of hypotension - HTN meds are held at this time - hold metoprolol and spirinolactone - continue to monitor BP History of Anxiety/depression - Psychiatry on consult Atrial fibrillation - one prior episode, currently regular rate - TSH wnl EtOH withdrawal - resolved - UDS negative - CIWA protocol - cessation counseling Atypical chest pain - resolved - Toradol prn for pain - initial EKG showed ST at 110 bpm - troponins neg x3 Abdominal pain - resolved - history of gastritis and cirrhosis - Abdominal CT: no acute abdominal or pelvic pathology. hepatomegaly and fatty liver. colonic diverticulosis with no evidence of diverticulitis, fibroid uterus - Abdominal ultrasound 01/2018: increased echogenicity of liver parenchyma, no mass, no intrahepatic bile duct dilation - Protonix [facility], Maalox and sucralfate PRN Dispo: Continue to monitor patient in TCU. Patient is planned for discharge on Sunday. Case was discussed and reviewed with Attending Physician, Dr. Dueñas <Sole Dueñas - Last Filed: 04/09/18 18:30> Objective - Vital Signs/Intake and Output Vital Signs (last 24 hours): Temp Pulse Resp BP Pulse Ox 98.1 F 80 18 103/64 98 04/09/18 16:00 04/09/18 16:00 04/09/18 16:00 04/09/18 10:00 04/09/18 16:00 Intake and Output: 04/09/18 04/09/18 06:59 18:59 Intake Total 360 Balance 360 - Medications Medications: Current Medications Al Hydrox/Mg Hydrox/Simethicone (Maalox Plus 30 Ml) 30 ml PO DAILY PRN; Protocol PRN Reason: Indigestion / Heartburn Last Admin: 04/08/18 13:40 Dose: 30 ml Aspirin (Aspirin Chewable) 81 mg PO DAILY [facility]; Protocol Last Admin: 04/09/18 10:13 Dose: 81 mg Folic Acid (Folic Acid) 1 mg PO DAILY [facility]; Protocol Last Admin: 04/09/18 10:13 Dose: 1 mg Ketorolac Tromethamine (Toradol) 15 mg IVP Q6H PRN; Protocol PRN Reason: Pain, moderate (4-7) Last Admin: 04/09/18 12:22 Dose: 15 mg Lorazepam (Ativan) 1 mg PO Q4H PRN; Protocol PRN Reason: Anxiety Last Admin: 04/09/18 03:44 Dose: 1 mg Metoprolol Tartrate (Lopressor) 50 mg PO 0800,1800 [facility]; Protocol Last Admin: 04/08/18 17:21 Dose: 50 mg Multivitamins/Minerals (Therapeutic-M Tab) 1 tab PO 0800 [facility]; Protocol Last Admin: 04/09/18 10:12 Dose: 1 tab Nystatin (Nystatin Oral Susp) 5 ml PO QID [facility]; Protocol Last Admin: 04/09/18 17:18 Dose: 5 ml Ondansetron HCl (Zofran Inj) 4 mg IVP Q6H PRN; Protocol PRN Reason: Nausea/Vomiting Last Admin: 04/07/18 21:26 Dose: 4 mg Pantoprazole Sodium (Protonix Ec Tab) 40 mg PO 0600 [facility]; Protocol Last Admin: 04/09/18 05:45 Dose: 40 mg Quetiapine Fumarate (Seroquel) 50 mg PO HS [facility]; Protocol Last Admin: 04/08/18 21:11 Dose: 50 mg Spironolactone (Aldactone) 25 mg PO DAILY [facility]; Protocol Last Admin: 04/08/18 11:08 Dose: Not Given Sucralfate (Carafate Oral Susp) 1 gm PO 0630,1130,1630,2200 [facility] Last Admin: 04/09/18 16:51 Dose: 1 gm Thiamine HCl (Vitamin B1 Tab) 100 mg PO DAILY [facility]; Protocol Last Admin: 04/09/18 10:14 Dose: 100 mg Trimethoprim/Sulfamethoxazole (Bactrim Ds Tab) 1 tab PO BID [facility]; Protocol Last Admin: 04/09/18 17:18 Dose: 1 tab - Labs Labs: 04/09/18 06:40 04/09/18 06:40 Attending/Attestation - Attestation I have personally seen and examined this patient.: Yes I have fully participated in the care of the patient.: Yes I have reviewed all pertinent clinical information, including history, physical exam and plan: Yes Notes (Text): 04/09/18 18:19 72 year old female with past medical history of hypertension, alcohol abuse, TIA, cirrhosis, gastritis and anxiety/depression who presented initially with alcohol withdrawal, chest pain and abdominal pain. Serial cardiac enzymes were negative and ACS was ruled out. Epigastric pain likely secondary to PUD. Continue with PPI. She was counselled on alcohol abstinence. Also found to have a left toe abscess s/p I&D by podiatry. MRI/Xray negative for osteomyelitis. Currently on antibiotics as per ID. She was later transferred to TCU for physical therapy rehabilitation. Continue with PT as tolerated. Sole Dueñas MD Hospitalist.
--- NOTE | 2018-04-09 17:33 | CP.PCM.PN ---
Subjective - Date & Time of Evaluation Date of Evaluation: 04/09/18 Time of Evaluation: 16:15 - Subjective Subjective: Infectious Disease Follow Up: April 09, 2018 72 yo primarily Bangladeshi speaking female with left foot 2nd toe ulceration and erythema. Patient with past medical history of hypertension, facial palsy, TIA, glaucoma, cirrhosis, osteoporosis, colitis, gastritis, UTI, anxiety, depression, panic disorder, and urinary retention presenting with 2 week history of drinking 2 pints of vodka daily and one week of loss of appetite. Patient was also s/p numerous falls. Patient reported headache, dizziness, tremors, tinnitus, but no hearing loss. Patient had 10 episodes of vomiting with blood tinged vomit and numerous episodes of watery stools mixed with blood. Patient denies chest pain, heart palpitations, and shortness of breath. 12-point ROS was unreliable due to patient's somnolence and mental status. On admission patient had serum alcohol level 201, negative UDS. Patient received Ativan PRN was given with multivitamin, thiamine, folic acid. Patient also presented of abdominal pain. Abdominal CT showed no acute abdominal or pelvic pathology, hepatomegaly and fatty liver, colonic diverticulosis with no evidence of diverticulitis, fibroid uterus. Previous abdominal ultrasound from two months prior showed increased echogenicity of liver parenchyma, no mass, no intrahepatic bile duct dilation. Patient has a toe abscess. Left foot xray was negative for acute findings and MRI was negative for osteomyelitis. Wound culture grew MRSA. In TCU now. Bactrim PO for treatment at this time. No current complaints. Monitor Creatinine. Objective - Vital Signs/Intake and Output Vital Signs (last 24 hours): Temp Pulse Resp BP Pulse Ox 98.1 F 80 18 103/64 98 04/09/18 16:00 04/09/18 16:00 04/09/18 16:00 04/09/18 10:00 04/09/18 16:00 Intake and Output: 04/09/18 04/09/18 06:59 18:59 Intake Total 360 Balance 360 - Medications Medications: Current Medications Al Hydrox/Mg Hydrox/Simethicone (Maalox Plus 30 Ml) 30 ml PO DAILY PRN; Protocol PRN Reason: Indigestion / Heartburn Last Admin: 04/08/18 13:40 Dose: 30 ml Aspirin (Aspirin Chewable) 81 mg PO DAILY [facility]; Protocol Last Admin: 04/09/18 10:13 Dose: 81 mg Folic Acid (Folic Acid) 1 mg PO DAILY [facility]; Protocol Last Admin: 04/09/18 10:13 Dose: 1 mg Ketorolac Tromethamine (Toradol) 15 mg IVP Q6H PRN; Protocol PRN Reason: Pain, moderate (4-7) Last Admin: 04/09/18 12:22 Dose: 15 mg Lorazepam (Ativan) 1 mg PO Q4H PRN; Protocol PRN Reason: Anxiety Last Admin: 04/09/18 03:44 Dose: 1 mg Metoprolol Tartrate (Lopressor) 50 mg PO 0800,1800 [facility]; Protocol Last Admin: 04/08/18 17:21 Dose: 50 mg Multivitamins/Minerals (Therapeutic-M Tab) 1 tab PO 0800 [facility]; Protocol Last Admin: 04/09/18 10:12 Dose: 1 tab Nystatin (Nystatin Oral Susp) 5 ml PO QID [facility]; Protocol Last Admin: 04/09/18 17:18 Dose: 5 ml Ondansetron HCl (Zofran Inj) 4 mg IVP Q6H PRN; Protocol PRN Reason: Nausea/Vomiting Last Admin: 04/07/18 21:26 Dose: 4 mg Pantoprazole Sodium (Protonix Ec Tab) 40 mg PO 0600 [facility]; Protocol Last Admin: 04/09/18 05:45 Dose: 40 mg Quetiapine Fumarate (Seroquel) 50 mg PO HS [facility]; Protocol Last Admin: 04/08/18 21:11 Dose: 50 mg Spironolactone (Aldactone) 25 mg PO DAILY [facility]; Protocol Last Admin: 04/08/18 11:08 Dose: Not Given Sucralfate (Carafate Oral Susp) 1 gm PO 0630,1130,1630,2200 [facility] Last Admin: 04/09/18 16:51 Dose: 1 gm Thiamine HCl (Vitamin B1 Tab) 100 mg PO DAILY [facility]; Protocol Last Admin: 04/09/18 10:14 Dose: 100 mg Trimethoprim/Sulfamethoxazole (Bactrim Ds Tab) 1 tab PO BID [facility]; Protocol Last Admin: 04/09/18 17:18 Dose: 1 tab - Labs Labs: 04/09/18 06:40 04/09/18 06:40 - Constitutional Appears: Non-toxic, No Acute Distress, Chronically Ill - Head Exam Head Exam: ATRAUMATIC, NORMOCEPHALIC - Eye Exam Eye Exam: EOMI, PERRL Pupil Exam: NORMAL ACCOMODATION, PERRL - ENT Exam ENT Exam: Mucous Membranes Moist, Normal External Ear Exam, TM's Normal Bilaterally - Neck Exam Neck Exam: Full ROM, Normal Inspection - Respiratory Exam Respiratory Exam: Clear to Ausculation Bilateral, NORMAL BREATHING PATTERN. absent: Rales, Rhonchi, Wheezes - Cardiovascular Exam Cardiovascular Exam: REGULAR RHYTHM, RRR, +S1, +S2 - GI/Abdominal Exam GI & Abdominal Exam: Soft, Normal Bowel Sounds. absent: Distended, Tenderness - Extremities Exam Extremities Exam: Full ROM Additional comments: wound on LLE second toe with erythema, no drainage or fluctuance, dressing C/D/I - Neurological Exam Neurological Exam: Alert, Awake, CN II-XII Intact, Oriented x3 - Psychiatric Exam Psychiatric exam: Normal Affect, Normal Mood - Skin Additional comments: As above. Assessment and Plan - Assessment and Plan (Free Text) Assessment: 72 yo female with heavy alcohol abuse history with MRSA in left foot ulcer/wound in 2nd toe. Supportive care. On Bactrim for treatment. No osteomyelitis in imaging studies. ESR of 54. Local wound care. Local wound care. No new complaints. Thank you for allowing me to participate in the care of the patient, we will follow with you.
[2018-04-10] MEDS: Sucralfate 1 gm/10 ml Oral Susp UD PO SCH ×4 (05:31→21:35)
[2018-04-10] MEDS: Pantoprazole 40 mg EC Tab PO SCH (05:31)
[2018-04-10] MEDS: Multivitamin With Minerals Tab PO SCH (07:54)
[2018-04-10] MEDS: Tmp-Smz 800 mg-160 mg DS Tab PO SCH ×2 (08:59→17:22)
[2018-04-10] MEDS: Nystatin 100,000 Units/ml Oral Susp 5 ml UD PO SCH ×4 (09:00→21:35)
--- NOTE | 2018-04-10 10:50 | PN ---
DATE: 04/10/2018 REASON FOR CONSULTATION: Followup atrial fibrillation, hypertension, converted to normal sinus, history of alcohol abuse, now the patient is deconditioned and in transitional care unit. Cardiology followed for continuity of care in transitional care unit. SUBJECTIVE: The patient denies any chest pain, shortness of breath, or any palpitation. PHYSICAL EXAMINATION: GENERAL: Not in apparent distress. VITAL SIGNS: Temperature afebrile, heart rate 80, blood pressure 104/79. HEENT: PERRLA. Extraocular muscles are intact. NECK: Supple. No carotid bruit or thyromegaly. CHEST: Clear to auscultation. HEART: S1 and S2 regular. ABDOMEN: Soft. EXTREMITIES: Clubbing and cyanosis negative. LABORATORY DATA: Blood workup as follows; WBC 6.3, hemoglobin 11.6, hematocrit 36, and platelet count 280. Chemistry shows sodium 134, potassium 5.2, chloride 100, carbon dioxide 29, anion gap of 10, BUN 20, and creatinine 0.9. LFT yesterday. Magnesium 2.4. IMPRESSION: A 72-year-old female with past medical history significant for alcohol abuse, admitted with hypertension, atrial fibrillation, converted to normal sinus, most likely secondary to alcohol-related arrhythmia, history of hypertension, history of transient ischemic attack, history of glaucoma, cirrhosis, deconditioning of body, depression, anxiety disorder, panic disorder, moderate pulmonary hypertension, now in transitional care for continuity of care. CVS status is stable. RECOMMENDATIONS: Continue physical therapy. Continue spironolactone. Continue aspirin 81 mg daily. Continue sucralfate. Continue metoprolol. Continue multivitamin. Continue thiamine. Since yesterday, the patient has a potassium 5.1. We will hold spironolactone because of elevated potassium. Repeat lab in the morning. Thank you Dr. Dueñas, for providing us the opportunity in taking care of the patient, Quin Sam. Lise Mg MD
--- NOTE | 2018-04-10 18:00 | CP.PCM.PN ---
Subjective - Date & Time of Evaluation Date of Evaluation: 04/10/18 Time of Evaluation: 15:30 - Subjective Subjective: Infectious Disease Follow Up: April 10, 2018 72 yo primarily Venezuelan speaking female with left foot 2nd toe ulceration and erythema. Patient with past medical history of hypertension, facial palsy, TIA, glaucoma, cirrhosis, osteoporosis, colitis, gastritis, UTI, anxiety, depression, panic disorder, and urinary retention presenting with 2 week history of drinking 2 pints of vodka daily and one week of loss of appetite. Patient was also s/p numerous falls. Patient reported headache, dizziness, tremors, tinnitus, but no hearing loss. Patient had 10 episodes of vomiting with blood tinged vomit and numerous episodes of watery stools mixed with blood. Patient denies chest pain, heart palpitations, and shortness of breath. 12-point ROS was unreliable due to patient's somnolence and mental status. On admission patient had serum alcohol level 201, negative UDS. Patient received Ativan PRN was given with multivitamin, thiamine, folic acid. Patient also presented of abdominal pain. Abdominal CT showed no acute abdominal or pelvic pathology, hepatomegaly and fatty liver, colonic diverticulosis with no evidence of diverticulitis, fibroid uterus. Previous abdominal ultrasound from two months prior showed increased echogenicity of liver parenchyma, no mass, no intrahepatic bile duct dilation. Patient has a toe abscess. Left foot xray was negative for acute findings and MRI was negative for osteomyelitis. Wound culture grew MRSA. In TCU now. Bactrim PO for treatment at this time. No current complaints. Monitor Creatinine. Objective - Vital Signs/Intake and Output Vital Signs (last 24 hours): Temp Pulse Resp BP Pulse Ox 97.6 F 87 18 107/64 96 04/10/18 10:00 04/10/18 16:36 04/10/18 10:00 04/10/18 10:00 04/10/18 16:36 Intake and Output: 04/10/18 04/10/18 06:59 18:59 Intake Total 240 Balance 240 - Medications Medications: Current Medications Al Hydrox/Mg Hydrox/Simethicone (Maalox Plus 30 Ml) 30 ml PO DAILY PRN; Protocol PRN Reason: Indigestion / Heartburn Last Admin: 04/08/18 13:40 Dose: 30 ml Aspirin (Aspirin Chewable) 81 mg PO DAILY [facility]; Protocol Last Admin: 04/10/18 08:59 Dose: 81 mg Folic Acid (Folic Acid) 1 mg PO DAILY [facility]; Protocol Last Admin: 04/10/18 08:59 Dose: 1 mg Lorazepam (Ativan) 1 mg PO Q4H PRN; Protocol PRN Reason: Anxiety Last Admin: 04/10/18 02:03 Dose: 1 mg Metoprolol Succinate (Toprol Xl) 25 mg PO BRK REPLACED BY [facility] Multivitamins/Minerals (Therapeutic-M Tab) 1 tab PO 0800 REPLACED BY [facility]; Protocol Last Admin: 04/10/18 07:54 Dose: 1 tab Nystatin (Nystatin Oral Susp) 5 ml PO QID REPLACED BY [facility]; Protocol Last Admin: 04/10/18 17:22 Dose: 5 ml Ondansetron HCl (Zofran Inj) 4 mg IVP Q6H PRN; Protocol PRN Reason: Nausea/Vomiting Last Admin: 04/07/18 21:26 Dose: 4 mg Pantoprazole Sodium (Protonix Ec Tab) 40 mg PO 0600 REPLACED BY [facility]; Protocol Last Admin: 04/10/18 05:31 Dose: 40 mg Quetiapine Fumarate (Seroquel) 50 mg PO HS REPLACED BY [facility]; Protocol Last Admin: 04/09/18 21:21 Dose: 50 mg Sucralfate (Carafate Oral Susp) 1 gm PO 0630,1130,1630,2200 [facility] Last Admin: 04/10/18 17:22 Dose: 1 gm Thiamine HCl (Vitamin B1 Tab) 100 mg PO DAILY REPLACED BY [facility]; Protocol Last Admin: 04/10/18 08:59 Dose: 100 mg Trimethoprim/Sulfamethoxazole (Bactrim Ds Tab) 1 tab PO BID REPLACED BY [facility]; Protocol Last Admin: 04/10/18 17:22 Dose: 1 tab - Labs Labs: 04/09/18 06:40 04/09/18 06:40 - Constitutional Appears: Non-toxic, No Acute Distress, Chronically Ill - Head Exam Head Exam: ATRAUMATIC, NORMOCEPHALIC - Eye Exam Eye Exam: EOMI, PERRL Pupil Exam: NORMAL ACCOMODATION, PERRL - ENT Exam ENT Exam: Mucous Membranes Moist, Normal External Ear Exam, TM's Normal Bilaterally - Neck Exam Neck Exam: Full ROM, Normal Inspection - Respiratory Exam Respiratory Exam: Clear to Ausculation Bilateral, NORMAL BREATHING PATTERN. absent: Rales, Rhonchi, Wheezes - Cardiovascular Exam Cardiovascular Exam: REGULAR RHYTHM, RRR, +S1, +S2 - GI/Abdominal Exam GI & Abdominal Exam: Soft, Normal Bowel Sounds. absent: Distended, Tenderness - Extremities Exam Extremities Exam: Full ROM Additional comments: wound on LLE second toe with erythema, no drainage or fluctuance, dressing C/D/I - Neurological Exam Neurological Exam: Alert, Awake, CN II-XII Intact, Oriented x3 - Psychiatric Exam Psychiatric exam: Normal Affect, Normal Mood - Skin Additional comments: As above. Assessment and Plan - Assessment and Plan (Free Text) Assessment: 72 yo female with heavy alcohol abuse history with MRSA in left foot ulcer/wound in 2nd toe. Supportive care. On Bactrim for treatment. No osteomyelitis in imaging studies. ESR of 54. Local wound care. Local wound care. No new complaints. Appears comfortable. Thank you for allowing me to participate in the care of the patient, we will follow with you.
[2018-04-11] MEDS: Sucralfate 1 gm/10 ml Oral Susp UD PO SCH ×4 (05:30→21:45)
[2018-04-11] MEDS: Pantoprazole 40 mg EC Tab PO SCH (05:30)
[2018-04-11 07:18] LABS: HEMOGLOBIN 11.4 g/dL (12.0-16.0); MEAN CELL VOLUME 95.1 fl (80.0-105.0); MEAN CORPUSCULAR HEMOGLOBIN 30.8 pg (25.0-35.0); MEAN CORPUSCULAR HGB CONC 32.4 g/dl (31.0-37.0); MEAN PLATELET VOLUME 9.7 fl (7.0-11.0); RBC 3.7 10^6/uL (3.5-6.1); RED CELL DISTRIBUTION WIDTH 14.2 % (11.5-14.5); WHITE BLOOD COUNT 5.8 10^3/uL (4.5-11.0)
[2018-04-11 07:26] LABS: BLOOD UREA NITROGEN 18 mg/dL (7-21); CALCIUM 9.9 mg/dL (8.4-10.5); GFR NON-AFRICAN AMERICAN > 60
[2018-04-11 07:27] LABS: ALB/GLOB RATIO 1.1 (1.1-1.8); ALT/SGPT 55 U/L (7-56); AST/SGOT 59 U/L (14-36)
[2018-04-11] MEDS ORDERED: Metoprolol Succinate 25 mg XL Tab PO SCH (08:00)
[2018-04-11] MEDS: Multivitamin With Minerals Tab PO SCH (08:07)
[2018-04-11] MEDS: Nystatin 100,000 Units/ml Oral Susp 5 ml UD PO SCH ×4 (09:36→21:45)
[2018-04-11] MEDS: Tmp-Smz 800 mg-160 mg DS Tab PO SCH ×2 (09:36→17:18)
[2018-04-11 10:03] VITALS: O2SAT 97
--- NOTE | 2018-04-11 14:42 | PN ---
DATE: 04/11/2018 LOCATION: The patient is in room 302, bed 1. REASON FOR CONSULTATION AND FOLLOWUP: Atrial fibrillation, hypertension, converted to normal sinus, and history of alcohol abuse. Now, the patient is in Transitional Care Unit for deconditioning, getting physical therapy. SUBJECTIVE: The patient denies any chest pain, shortness of breath, or palpitation. The patient is ambulating without any cardiac symptoms. PHYSICAL EXAMINATION: VITAL SIGNS: Blood pressure 107/68, respirations 18, pulse 84, and temperature afebrile. HEENT: Head is normocephalic. Eyes; pupils normal. Conjunctivae slightly pale. NECK: JVP low. Carotid equal. THORAX: AP diameter normal. LUNGS: Clear. CARDIOVASCULAR: S1 and S2. ABDOMEN: Soft. Nontender. No organomegaly. Bowel sounds normal. EXTREMITIES: No clubbing. No cyanosis. LABORATORY DATA: WBC 5.8, hemoglobin 11.4, hematocrit 35.2, and platelet 342. Sodium 137, potassium 4.2, BUN 18, creatinine 0.9, magnesium 2.3, phosphorus 4.0, calcium 9.9, total protein 7.6, and albumin 4.0. DIAGNOSES: History of alcohol abuse, developed atrial fibrillation, converted to sinus, probably was related to high level of alcohol. The patient on admission to medical floor had high level of alcohol in the blood, so this was related probably to the high level of alcohol. This patient known hypertension, history of transient ischemic attack, history of glaucoma, cirrhosis, deconditioning of body, depression, anxiety, panic disorder, moderate pulmonary hypertension, now maintaining sinus rhythm. PLAN: The patient is maintaining sinus rhythm. Continue physical therapy and continue present medication 81 mg daily and metoprolol. Told the patient to stop drinking with her , told her before also and she is noncompliant with that. She continued drinks heavy. We will follow with you closely. Lise Mary MD
--- NOTE | 2018-04-11 17:49 | CP.PCM.PN ---
<Diamond Ramirez - Last Filed: 04/11/18 17:45> Subjective - Date & Time of Evaluation Date of Evaluation: 04/11/18 Time of Evaluation: 17:45 - Subjective Subjective: Diamond Ramirez, PGY2, Medicine Progress Note for Dr Dueñas: Patient seen and examined at bedside. No acute events overnight. Patient resting comfortably in bed, participating in physical therapy exercises as per nurse. Denies chest pain, nausea, vomiting, fevers, chills, abdominal pain, tremors, dysuria. Objective - Vital Signs/Intake and Output Vital Signs (last 24 hours): Temp Pulse Resp BP Pulse Ox 98.2 F 71 18 109/71 97 04/11/18 16:00 04/11/18 16:00 04/11/18 16:00 04/11/18 16:00 04/11/18 16:00 Intake and Output: 04/11/18 04/11/18 06:59 18:59 Intake Total 360 Balance 360 - Medications Medications: Current Medications Al Hydrox/Mg Hydrox/Simethicone (Maalox Plus 30 Ml) 30 ml PO DAILY PRN; Protocol PRN Reason: Indigestion / Heartburn Last Admin: 04/08/18 13:40 Dose: 30 ml Aspirin (Aspirin Chewable) 81 mg PO 0800 [facility]; Protocol Folic Acid (Folic Acid) 1 mg PO DAILY [facility]; Protocol Last Admin: 04/11/18 09:36 Dose: 1 mg Lorazepam (Ativan) 1 mg PO TID PRN; Protocol PRN Reason: Anxiety Metoprolol Succinate (Toprol Xl) 12.5 mg PO BRK [facility] Multivitamins/Minerals (Therapeutic-M Tab) 1 tab PO 0800 [facility]; Protocol Last Admin: 04/11/18 08:07 Dose: 1 tab Nystatin (Nystatin Oral Susp) 5 ml PO QID [facility]; Protocol Last Admin: 04/11/18 17:18 Dose: 5 ml Ondansetron HCl (Zofran Inj) 4 mg IVP Q6H PRN; Protocol PRN Reason: Nausea/Vomiting Last Admin: 04/07/18 21:26 Dose: 4 mg Pantoprazole Sodium (Protonix Ec Tab) 40 mg PO 0600 [facility]; Protocol Last Admin: 04/11/18 05:30 Dose: 40 mg Quetiapine Fumarate (Seroquel) 50 mg PO HS [facility]; Protocol Last Admin: 04/10/18 21:35 Dose: 50 mg Sucralfate (Carafate Oral Susp) 1 gm PO 0630,1130,1630,2200 [facility] Last Admin: 04/11/18 16:54 Dose: 1 gm Thiamine HCl (Vitamin B1 Tab) 100 mg PO DAILY [facility]; Protocol Last Admin: 04/11/18 09:36 Dose: 100 mg Trimethoprim/Sulfamethoxazole (Bactrim Ds Tab) 1 tab PO BID [facility]; Protocol Last Admin: 04/11/18 17:18 Dose: 1 tab - Labs Labs: 04/11/18 06:55 04/11/18 06:55 - Constitutional Appears: Non-toxic, No Acute Distress - Head Exam Head Exam: ATRAUMATIC, NORMOCEPHALIC - Eye Exam Eye Exam: EOMI, PERRL. absent: Conjunctival injection, Nystagmus, Scleral icterus Pupil Exam: NORMAL ACCOMODATION, PERRL. absent: Mydriatic - ENT Exam ENT Exam: Mucous Membranes Moist Additional comments: + oral thrush - Neck Exam Neck Exam: Full ROM - Respiratory Exam Respiratory Exam: Clear to Ausculation Bilateral. absent: Chest Wall Tenderness, Rales, Rhonchi, Stridor - Cardiovascular Exam Cardiovascular Exam: RRR, +S1, +S2. absent: Murmur - GI/Abdominal Exam GI & Abdominal Exam: Soft, Normal Bowel Sounds. absent: Guarding, Rigid, Tenderness, Organomegaly - Extremities Exam Extremities Exam: Normal Inspection. absent: Calf Tenderness, Pedal Edema - Back Exam Back Exam: NORMAL INSPECTION - Neurological Exam Neurological Exam: Alert, Awake, Oriented x3 - Psychiatric Exam Psychiatric exam: Normal Affect, Normal Mood - Skin Skin Exam: Dry, Normal Color, Warm Additional comments: wound on LLE second toe with mild erythema, no drainage or fluctuance. Assessment and Plan - Assessment and Plan (Free Text) Assessment: This is a 72 year old Kiswahili speaking female with past medical history hypertension, facial palsy, TIA, glaucoma, cirrhosis, osteoporosis, colitis, gastritis, UTI, anxiety, depression, panic disorder, and urinary retention presented with abdominal pain and alcohol withdrawal, now resolved. Patient was admitted to TCU on 04/05 for rehabilitation. Patient's blood pressure has been low (SBP 80s-100s) this AM after troprol 25 mg XL administration. Will cut down dose to 12.5 mg: Left Toe abscess s/p I&D - ID on consult. Remains on bactrim, Day 09/02. - Podiatry on consult - s/p I&D with no complications - left foot xray negative for acute findings - wound culture growing gram positive cocci - MRI negative for osteo Episodes of hypotension: - Lowered dose of Toprol XL to 12.5 mg daily from 25 mg yesterday. - will hold aldactone - continue to monitor BP History of Anxiety/depression - Psychiatry on consult Atrial fibrillation - one prior episode, currently regular rate - TSH wnl - troprol 12.5 mg EtOH withdrawal - resolved - UDS negative - CIWA protocol - cessation counseling Atypical chest pain - resolved - Toradol prn for pain - initial EKG showed ST at 110 bpm - troponins neg x3 Abdominal pain - resolved - history of gastritis and cirrhosis - Abdominal CT: no acute abdominal or pelvic pathology. hepatomegaly and fatty liver. colonic diverticulosis with no evidence of diverticulitis, fibroid uterus - Abdominal ultrasound 01/2018: increased echogenicity of liver parenchyma, no mass, no intrahepatic bile duct dilation - Protonix [facility], Maalox and sucralfate PRN Dispo: Discharge home tomorrow. Case was discussed and reviewed with Attending Physician, Dr. Dueñas <Sole Dueñas - Last Filed: 04/11/18 18:08> Objective - Vital Signs/Intake and Output Vital Signs (last 24 hours): Temp Pulse Resp BP Pulse Ox 98.2 F 71 18 109/71 97 04/11/18 16:00 04/11/18 16:00 04/11/18 16:00 04/11/18 16:00 04/11/18 16:00 Intake and Output: 04/11/18 04/11/18 06:59 18:59 Intake Total 360 Balance 360 - Medications Medications: Current Medications Al Hydrox/Mg Hydrox/Simethicone (Maalox Plus 30 Ml) 30 ml PO DAILY PRN; Protocol PRN Reason: Indigestion / Heartburn Last Admin: 04/08/18 13:40 Dose: 30 ml Aspirin (Aspirin Chewable) 81 mg PO 0800 [facility]; Protocol Folic Acid (Folic Acid) 1 mg PO DAILY [facility]; Protocol Last Admin: 04/11/18 09:36 Dose: 1 mg Lorazepam (Ativan) 1 mg PO TID PRN; Protocol PRN Reason: Anxiety Metoprolol Succinate (Toprol Xl) 12.5 mg PO BRK [facility] Multivitamins/Minerals (Therapeutic-M Tab) 1 tab PO 0800 [facility]; Protocol Last Admin: 04/11/18 08:07 Dose: 1 tab Nystatin (Nystatin Oral Susp) 5 ml PO QID [facility]; Protocol Last Admin: 04/11/18 17:18 Dose: 5 ml Ondansetron HCl (Zofran Inj) 4 mg IVP Q6H PRN; Protocol PRN Reason: Nausea/Vomiting Last Admin: 04/07/18 21:26 Dose: 4 mg Pantoprazole Sodium (Protonix Ec Tab) 40 mg PO 0600 [facility]; Protocol Last Admin: 04/11/18 05:30 Dose: 40 mg Quetiapine Fumarate (Seroquel) 50 mg PO HS [facility]; Protocol Last Admin: 04/10/18 21:35 Dose: 50 mg Sucralfate (Carafate Oral Susp) 1 gm PO 0630,1130,1630,2200 [facility] Last Admin: 04/11/18 16:54 Dose: 1 gm Thiamine HCl (Vitamin B1 Tab) 100 mg PO DAILY [facility]; Protocol Last Admin: 04/11/18 09:36 Dose: 100 mg - Labs Labs: 04/11/18 06:55 04/11/18 06:55 Attending/Attestation - Attestation I have personally seen and examined this patient.: Yes I have fully participated in the care of the patient.: Yes I have reviewed all pertinent clinical information, including history, physical exam and plan: Yes Notes (Text): 04/11/18 18:06 72 year old female with past medical history of hypertension, alcohol abuse, TIA, cirrhosis, gastritis and anxiety/depression who presented initially with alcohol withdrawal, chest pain and abdominal pain. Serial cardiac enzymes were negative and ACS was ruled out. Epigastric pain likely secondary to PUD. Continue with PPI. She was counselled on alcohol abstinence. Also found to have a left toe abscess s/p I&D by podiatry. MRI/Xray negative for osteomyelitis. Currently on antibiotics as per ID. She was later transferred to TCU for physical therapy rehabilitation. BP has been low normal. Aldactone was held and metoprolol dose decreased with holding parameters. Continue with PT as tolerated. Likely d/c planning tomorrow. Sole Dueñas MD Hospitalist.
--- NOTE | 2018-04-11 20:24 | CP.PCM.PN ---
Subjective - Date & Time of Evaluation Date of Evaluation: 04/11/18 Time of Evaluation: 19:30 - Subjective Subjective: Infectious Disease Follow Up: April 11, 2018 72 yo primarily Omani speaking female with left foot 2nd toe ulceration and erythema. Patient with past medical history of hypertension, facial palsy, TIA, glaucoma, cirrhosis, osteoporosis, colitis, gastritis, UTI, anxiety, depression, panic disorder, and urinary retention presenting with 2 week history of drinking 2 pints of vodka daily and one week of loss of appetite. Patient was also s/p numerous falls. Patient reported headache, dizziness, tremors, tinnitus, but no hearing loss. Patient had 10 episodes of vomiting with blood tinged vomit and numerous episodes of watery stools mixed with blood. Patient denies chest pain, heart palpitations, and shortness of breath. 12-point ROS was unreliable due to patient's somnolence and mental status. On admission patient had serum alcohol level 201, negative UDS. Patient received Ativan PRN was given with multivitamin, thiamine, folic acid. Patient also presented of abdominal pain. Abdominal CT showed no acute abdominal or pelvic pathology, hepatomegaly and fatty liver, colonic diverticulosis with no evidence of diverticulitis, fibroid uterus. Previous abdominal ultrasound from two months prior showed increased echogenicity of liver parenchyma, no mass, no intrahepatic bile duct dilation. Patient has a toe abscess. Left foot xray was negative for acute findings and MRI was negative for osteomyelitis. Wound culture grew MRSA. In TCU now. Bactrim PO for treatment at this time. No current complaints. Monitor Creatinine. Objective - Vital Signs/Intake and Output Vital Signs (last 24 hours): Temp Pulse Resp BP Pulse Ox 98.2 F 71 18 109/71 97 04/11/18 16:00 04/11/18 16:00 04/11/18 16:00 04/11/18 16:00 04/11/18 16:00 - Medications Medications: Current Medications Al Hydrox/Mg Hydrox/Simethicone (Maalox Plus 30 Ml) 30 ml PO DAILY PRN; Protocol PRN Reason: Indigestion / Heartburn Last Admin: 04/08/18 13:40 Dose: 30 ml Aspirin (Aspirin Chewable) 81 mg PO 0800 [facility]; Protocol Folic Acid (Folic Acid) 1 mg PO DAILY [facility]; Protocol Last Admin: 04/11/18 09:36 Dose: 1 mg Lorazepam (Ativan) 1 mg PO TID PRN; Protocol PRN Reason: Anxiety Metoprolol Succinate (Toprol Xl) 12.5 mg PO BRK [facility] Multivitamins/Minerals (Therapeutic-M Tab) 1 tab PO 0800 [facility]; Protocol Last Admin: 04/11/18 08:07 Dose: 1 tab Nystatin (Nystatin Oral Susp) 5 ml PO QID [facility]; Protocol Last Admin: 04/11/18 17:18 Dose: 5 ml Ondansetron HCl (Zofran Inj) 4 mg IVP Q6H PRN; Protocol PRN Reason: Nausea/Vomiting Last Admin: 04/07/18 21:26 Dose: 4 mg Pantoprazole Sodium (Protonix Ec Tab) 40 mg PO 0600 [facility]; Protocol Last Admin: 04/11/18 05:30 Dose: 40 mg Quetiapine Fumarate (Seroquel) 50 mg PO HS [facility]; Protocol Last Admin: 04/10/18 21:35 Dose: 50 mg Sucralfate (Carafate Oral Susp) 1 gm PO 0630,1130,1630,2200 [facility] Last Admin: 04/11/18 16:54 Dose: 1 gm Thiamine HCl (Vitamin B1 Tab) 100 mg PO DAILY [facility]; Protocol Last Admin: 04/11/18 09:36 Dose: 100 mg - Labs Labs: 04/11/18 06:55 04/11/18 06:55 - Constitutional Appears: Non-toxic, No Acute Distress, Chronically Ill - Head Exam Head Exam: ATRAUMATIC, NORMOCEPHALIC - Eye Exam Eye Exam: EOMI, PERRL Pupil Exam: NORMAL ACCOMODATION, PERRL - ENT Exam ENT Exam: Mucous Membranes Moist, Normal External Ear Exam, TM's Normal Bilaterally - Neck Exam Neck Exam: Full ROM, Normal Inspection - Respiratory Exam Respiratory Exam: Clear to Ausculation Bilateral, NORMAL BREATHING PATTERN. absent: Rales, Rhonchi, Wheezes - Cardiovascular Exam Cardiovascular Exam: REGULAR RHYTHM, RRR, +S1, +S2 - GI/Abdominal Exam GI & Abdominal Exam: Soft, Normal Bowel Sounds. absent: Distended, Tenderness - Extremities Exam Extremities Exam: Full ROM. absent: Joint Swelling, Pedal Edema Additional comments: wound on LLE second toe with erythema, no drainage or fluctuance, dressing C/D/I - Neurological Exam Neurological Exam: Alert, Awake, CN II-XII Intact, Oriented x3 - Psychiatric Exam Psychiatric exam: Normal Affect, Normal Mood - Skin Additional comments: As above. Assessment and Plan - Assessment and Plan (Free Text) Assessment: 72 yo female with heavy alcohol abuse history with MRSA in left foot ulcer/wound in 2nd toe. Supportive care. On Bactrim for treatment. No osteomyelitis in imaging studies. ESR of 54. Local wound care. Local wound care. No new complaints. Appears comfortable. Thank you for allowing me to participate in the care of the patient, we will follow with you.
[2018-04-12] MEDS: Pantoprazole 40 mg EC Tab PO SCH (05:38)
[2018-04-12] MEDS: Sucralfate 1 gm/10 ml Oral Susp UD PO SCH ×3 (05:38→17:15)
[2018-04-12] MEDS ORDERED: Metoprolol Succinate 25 mg XL Tab PO SCH (08:00)
--- NOTE | 2018-04-12 08:27 | CP.PCM.DIS ---
<Diamond Ramirez - Last Filed: 04/12/18 18:09> Provider - Provider Date of Admission: 04/04/18 17:51 Attending physician: Sole Dueñas MD Consults: 04/04/18 18:51 Cardiology Consult Routine Comment: Consulting Provider: Lise Mg Consulting Physician: Lise Mg Reason for Consult: A.FIB Physician Consult Routine Comment: Consulting Provider: Michelle Galvan Consulting Physician: Michelle Galvan Reason for Consult: LEFT TOE ABSCESS Podiatry Consult Routine Comment: Consulting Provider: Arnulfo Soni Consulting Physician: Arnulfo Soni Reason for Consult: ABSCESS 04/05/18 16:27 Consult [Physician Consult] Routine Comment: Consulting Provider: Jameel Larson Consulting Physician: Jameel Larson Reason for Consult: 72 F with foot abscess, wound cultures growing MRSA Time Spent in preparation of Discharge (in minutes): 55 Diagnosis - Discharge Diagnosis (1) Toe abscess Status: Acute (2) Abdominal pain Status: Acute (3) Chest pain Status: Acute (4) Alcohol abuse Status: Chronic Priority: Medium (5) Alcohol withdrawal Status: Resolved Hospital Course - Lab Results Lab Results: Most Recent Lab Values WBC 5.8 10^3/uL (4.5-11.0) 04/11/18 06:55 RBC 3.70 10^6/uL (3.5-6.1) 04/11/18 06:55 Hgb 11.4 g/dL (12.0-16.0) L 04/11/18 06:55 Hct 35.2 % (36.0-48.0) L 04/11/18 06:55 MCV 95.1 fl (80.0-105.0) 04/11/18 06:55 MCH 30.8 pg (25.0-35.0) 04/11/18 06:55 MCHC 32.4 g/dl (31.0-37.0) 04/11/18 06:55 RDW 14.2 % (11.5-14.5) 04/11/18 06:55 Plt Count 342 10^3/uL (120.0-450.0) 04/11/18 06:55 MPV 9.7 fl (7.0-11.0) 04/11/18 06:55 Gran % 54.2 % (50.0-68.0) 04/07/18 05:00 Lymph % (Auto) 28.2 % (22.0-35.0) 04/07/18 05:00 [place] % (Auto) 13.2 % (1.0-6.0) H 04/07/18 05:00 Eos % (Auto) 3.9 % (1.5-5.0) 04/07/18 05:00 Baso % (Auto) 0.5 % (0.0-3.0) 04/07/18 05:00 Gran # 3.17 (1.4-6.5) 04/07/18 05:00 Lymph # (Auto) 1.7 (1.2-3.4) 04/07/18 05:00 [place] # (Auto) 0.8 (0.1-0.6) H 04/07/18 05:00 Eos # (Auto) 0.2 (0.0-0.7) 04/07/18 05:00 Baso # (Auto) 0.03 K/mm3 (0.0-2.0) 04/07/18 05:00 Sodium 137 mmol/L (132-148) 04/11/18 06:55 Potassium 4.2 mmol/L (3.6-5.0) 04/11/18 06:55 Chloride 104 mmol/L (98-107) 04/11/18 06:55 Carbon Dioxide 29 mmol/L (21-33) 04/11/18 06:55 Anion Gap 8 (10-20) L 04/11/18 06:55 BUN 18 mg/dL (7-21) 04/11/18 06:55 Creatinine 0.9 mg/dl (0.7-1.2) 04/11/18 06:55 Est GFR ( Amer) > 60 04/11/18 06:55 Est GFR (Non-Af Amer) > 60 04/11/18 06:55 Random Glucose 97 mg/dL (70-110) 04/11/18 06:55 Calcium 9.9 mg/dL (8.4-10.5) 04/11/18 06:55 Phosphorus 4.0 mg/dL (2.5-4.5) 04/11/18 06:55 Magnesium 2.3 mg/dL (1.7-2.2) H 04/11/18 06:55 Total Bilirubin 0.4 mg/dL (0.2-1.3) 04/11/18 06:55 AST 59 U/L (14-36) H 04/11/18 06:55 ALT 55 U/L (7-56) 04/11/18 06:55 Alkaline Phosphatase 97 U/L (38-126) 04/11/18 06:55 Total Protein 7.6 g/dL (5.8-8.3) 04/11/18 06:55 Albumin 4.0 g/dL (3.0-4.8) 04/11/18 06:55 Globulin 3.6 gm/dL 04/11/18 06:55 Albumin/Globulin Ratio 1.1 (1.1-1.8) 04/11/18 06:55 - Hospital Course Hospital Course: This is a 72 year old Setsw[place] speaking female with past medical history of hypertension, facial palsy, TIA, glaucoma, cirrhosis, osteoporosis, colitis, gastritis, UTI, anxiety, depression, panic disorder, and urinary retention presenting with 2 week history of drinking 2 pints of vodka daily and one week of loss of appetite. Patient was also s/p numerous falls. Patient reported headache, dizziness, tremors, tinnitus, but no hearing loss. Patient had 10 ep isodes of vomiting with blood tinged vomit. Patient also reports numerous episodes of watery stools mixed with blood. Alcohol level on admission was 201. Patient underwent alcohol withdrawal treatment with ativan, MVT, thiamine, folate. Cessation counseling was provided. Patient also complained of atypical chest pain. EKG showed sinus tachycardia at 110 bpm. Troponins were negative x3. Patient was given, aspirin, metoprolol, spironolactone, toradol PRN for pain. Patient also presented of abdominal pain. Abdominal CT showed no acute abdominal or pelvic pathology, hepatomegaly and fatty liver, colonic diverticulosis with no evidence of diverticulitis, fibroid uterus. Previous abdominal ultrasound from two months prior showed increased echogenicity of liver parenchyma, no mass, no intrahepatic bile duct dilation. Patient was given Protonix scheduled and Maalox PRN. Patient was started on seroquel as per psychiatry recommendations for anxiety, depression, and insomnia. Patient was also noted to have a toe abscess. Podiatry was consulted. Patient underwent I&D with no complications. Left foot xray was negative for acute findings. MRI was negative for osteomyelitis. Wound culture grew MRSA. Patient also had an episode of afib with monitor noting tachycardia into 130s that spontaneously resolved to NSR. Cardiology was consulted. TSH was noted to be in normal range. PT eval recommended TCU, patient underwent rehab there. Patient's toe cultures grew MRSA, patient is given total of 10 days of Bactrim. Patient's at home is positive for influenza. Patient advised to wear mask, and is given Tamiflu for prophylaxis, as per ID. Case seen and discussed with attending, Dr Dueñas. Discharge Exam - Additional Findings Additional findings: - Constitutional Appears: Non-toxic, No Acute Distress - Head Exam Head Exam: ATRAUMATIC, NORMOCEPHALIC - Eye Exam Eye Exam: EOMI, PERRL. absent: Conjunctival injection, Nystagmus, Scleral icterus Pupil Exam: NORMAL ACCOMODATION, PERRL. absent: Mydriatic - ENT Exam ENT Exam: Mucous Membranes Moist Additional comments: + oral thrush - Neck Exam Neck Exam: Full ROM - Respiratory Exam Respiratory Exam: Clear to Ausculation Bilateral. absent: Chest Wall Tenderness, Rales, Rhonchi, Stridor - Cardiovascular Exam Cardiovascular Exam: RRR, +S1, +S2. absent: Murmur - GI/Abdominal Exam GI & Abdominal Exam: Soft, Normal Bowel Sounds. absent: Guarding, Rigid, Tenderness, Organomegaly - Extremities Exam Extremities Exam: Normal Inspection. absent: Calf Tenderness, Pedal Edema - Back Exam Back Exam: NORMAL INSPECTION - Neurological Exam Neurological Exam: Alert, Awake, Oriented x3 - Psychiatric Exam Psychiatric exam: Normal Affect, Normal Mood - Skin Skin Exam: Dry, Normal Color, Warm Additional comments: wound on LLE second toe with mild erythema, no drainage or fluctuance. Discharge Plan - Discharge Medications Prescriptions: Aluminum Hydroxide/Magnesium [Maalox Plus 30 ml] 30 ml PO DAILY PRN #30 udc PRN Reason: Indigestion / Heartburn Aspirin [Aspirin Chewable] 81 mg PO 0800 #30 chew Folic Acid 1 mg PO DAILY #30 tab Metoprolol Succinate XL [Toprol XL] 12.5 mg PO BRK #30 tab Multimineral/Multivitamin [Therapeutic-M Tab] 1 tab PO 0800 #30 tab Nystatin [Nystatin Oral Susp] 5 ml PO QID #120 udc Oseltamivir Phosphate [Tamiflu] 75 mg PO DAILY #7 capsule Pantoprazole [Protonix EC Tab] 40 mg PO 0600 #14 ect Quetiapine Fumarate [Seroquel] 25 mg PO HS #7 tablet Sucralfate [Carafate Oral Susp] 1 gm PO 0630,1130,1630,2200 #120 udc Sulfamethoxazole/Trimethoprim [Bactrim DS Tab] 1 tab PO BID #8 tab Thiamine [Vitamin B1 Tab] 100 mg PO DAILY #30 tab - Follow Up Plan Condition: GOOD Disposition: HOME/ ROUTINE Instructions: Alcohol Abuse and Alcoholism (DC), Effects of Alcohol on Your Health Additional Instructions: Please follow up with your primary medical doctor that is written on your insurance care within 1 week. Follow up with your head lineman, Dr. Mg for outpatient stress test. Resume your home medications as prescribed: ASA 81 mg daily folic acid 1 mg daily toprol xl 12.5 mg daily at breakfast Multivitamin 1 tab daily nystatin 5 mg four times a day protonix 40 mg 1 tab daily seroquel 50 mg 1 tab daily, given 1 week supply sucralfate 1 gm 1 tab four times a day thiamine 100 mg 1 tab daily Bactrim 1 tab 1 tab every 12 HOURS for 4 days You are also given Tamiflu for influenza prophylaxis, since your at home has the flu. Follow up with psychiatrist outpatient for your depression, insomnia. Please refrain from drinking alcohol and follow up with AA meetings. Return to ED if symptoms return or worsen. Referrals: Alcoholics Anonymous [Outside] Lise Mg MD [Staff Provider] - <Sole Dueñas - Last Filed: 04/13/18 10:26> Provider - Provider Date of Admission: 04/04/18 17:51 Attending physician: Sole Dueñas MD Consults: 04/04/18 18:51 Cardiology Consult Routine Comment: Consulting Provider: Lise Mg Consulting Physician: Lise Mg Reason for Consult: A.FIB Physician Consult Routine Comment: Consulting Provider: Michelle Galvan Consulting Physician: Michelle Galvan Reason for Consult: LEFT TOE ABSCESS Podiatry Consult Routine Comment: Consulting Provider: Arnulfo Soni Consulting Physician: Zachariah,Schail Reason for Consult: ABSCESS 04/05/18 16:27 Consult [Physician Consult] Routine Comment: Consulting Provider: Jameel Larson Consulting Physician: Jameel Larson Reason for Consult: 72 F with foot abscess, wound cultures growing MRSA Hospital Course - Lab Results Lab Results: Most Recent Lab Values WBC 5.8 10^3/uL (4.5-11.0) 04/11/18 06:55 RBC 3.70 10^6/uL (3.5-6.1) 04/11/18 06:55 Hgb 11.4 g/dL (12.0-16.0) L 04/11/18 06:55 Hct 35.2 % (36.0-48.0) L 04/11/18 06:55 MCV 95.1 fl (80.0-105.0) 04/11/18 06:55 MCH 30.8 pg (25.0-35.0) 04/11/18 06:55 MCHC 32.4 g/dl (31.0-37.0) 04/11/18 06:55 RDW 14.2 % (11.5-14.5) 04/11/18 06:55 Plt Count 342 10^3/uL (120.0-450.0) 04/11/18 06:55 MPV 9.7 fl (7.0-11.0) 04/11/18 06:55 Gran % 54.2 % (50.0-68.0) 04/07/18 05:00 Lymph % (Auto) 28.2 % (22.0-35.0) 04/07/18 05:00 [place] % (Auto) 13.2 % (1.0-6.0) H 04/07/18 05:00 Eos % (Auto) 3.9 % (1.5-5.0) 04/07/18 05:00 Baso % (Auto) 0.5 % (0.0-3.0) 04/07/18 05:00 Gran # 3.17 (1.4-6.5) 04/07/18 05:00 Lymph # (Auto) 1.7 (1.2-3.4) 04/07/18 05:00 [place] # (Auto) 0.8 (0.1-0.6) H 04/07/18 05:00 Eos # (Auto) 0.2 (0.0-0.7) 04/07/18 05:00 Baso # (Auto) 0.03 K/mm3 (0.0-2.0) 04/07/18 05:00 Sodium 137 mmol/L (132-148) 04/11/18 06:55 Potassium 4.2 mmol/L (3.6-5.0) 04/11/18 06:55 Chloride 104 mmol/L (98-107) 04/11/18 06:55 Carbon Dioxide 29 mmol/L (21-33) 04/11/18 06:55 Anion Gap 8 (10-20) L 04/11/18 06:55 BUN 18 mg/dL (7-21) 04/11/18 06:55 Creatinine 0.9 mg/dl (0.7-1.2) 04/11/18 06:55 Est GFR ( Amer) > 60 04/11/18 06:55 Est GFR (Non-Af Amer) > 60 04/11/18 06:55 Random Glucose 97 mg/dL (70-110) 04/11/18 06:55 Calcium 9.9 mg/dL (8.4-10.5) 04/11/18 06:55 Phosphorus 4.0 mg/dL (2.5-4.5) 04/11/18 06:55 Magnesium 2.3 mg/dL (1.7-2.2) H 04/11/18 06:55 Total Bilirubin 0.4 mg/dL (0.2-1.3) 04/11/18 06:55 AST 59 U/L (14-36) H 04/11/18 06:55 ALT 55 U/L (7-56) 04/11/18 06:55 Alkaline Phosphatase 97 U/L (38-126) 04/11/18 06:55 Total Protein 7.6 g/dL (5.8-8.3) 04/11/18 06:55 Albumin 4.0 g/dL (3.0-4.8) 04/11/18 06:55 Globulin 3.6 gm/dL 04/11/18 06:55 Albumin/Globulin Ratio 1.1 (1.1-1.8) 04/11/18 06:55 Attending/Attestation - Attestation I have personally seen and examined this patient.: Yes I have fully participated in the care of the patient.: Yes I have reviewed all pertinent clinical information, including history, physical exam and plan: Yes Notes (Text): 04/12/18 72 year old female with past medical history of hypertension, alcohol abuse, TIA, cirrhosis, gastritis and anxiety/depression who presented initially with alcohol withdrawal, chest pain and abdominal pain. Serial cardiac enzymes were negative and ACS was ruled out. Epigastric pain likely secondary to PUD. Symptoms improved with PPI. She was counselled on alcohol abstinence. Also found to have a left toe abscess s/p I&D by podiatry. MRI/Xray negative for osteomyelitis. She was on antibiotics as per ID. She was later transferred to TCU for physical therapy rehabilitation. BP medications were adjusted due to low normal blood pressure. Patient is discharged home to follow up with pmd. Follow up with psychiatrist. Counselled on alcohol cessation. Sole Dueñas MD Hospitalist.
[2018-04-12] MEDS: Nystatin 100,000 Units/ml Oral Susp 5 ml UD PO SCH ×3 (09:48→17:15)
[2018-04-12] MEDS: Multivitamin With Minerals Tab PO SCH (09:49)
[2018-04-12 09:51] VITALS: BP 101/68
--- NOTE | 2018-04-12 14:08 | PN ---
DATE: 04/12/2018 LOCATION: Room 302, bed 1. REASON FOR CONSULTATION: Followup atrial fibrillation, hypertension, she spontaneously converted to sinus rhythm, history of alcohol abuse, deconditioning. SUBJECTIVE: The patient denies any chest pain, shortness of breath, or palpitation. The is getting physical therapy and she is asymptomatic from cardiac point of view. PHYSICAL EXAMINATION: VITAL SIGNS: Blood pressure 101/68, respirations 18, pulse 71, and temperature 98.2. HEENT: Head: Normocephalic. Eyes: Pupils normal, conjunctivae normal. Nose and throat: Normal. NECK: JVP. Carotid equal. THORAX: AP diameter is normal. LUNGS: Clear. CARDIOVASCULAR: S1 and S2. ABDOMEN: Soft. Bowel sounds normal. EXTREMITIES: No clubbing. No cyanosis. LABORATORY DATA: WBC 5.8, hemoglobin 11.4, hematocrit 35.2, platelets 342. Sodium 137, potassium 4.2. BUN 18, creatinine 0.9. AST 59, ALT 55. Liver enzymes are coming down. On 04/05/2018, AST was 119 and ALT was 78. Protein and albumin normal. DIAGNOSES: Atrial fibrillation with spontaneous conversion, history of alcohol abuse. The patient's alcohol level was very high. He was eventually admitted to the medical floor and at that time, she had atrial fibrillation. So, most likely, the atrial fibrillation was due to alcohol level being very high. The patient has liver cirrhosis, glaucoma, hypertension, transient ischemic attack, depression, anxiety, panic disorder, moderate pulmonary hypertension, deconditioning. PLAN: Told [facility] to do Nuclear Stress Test as outpatient. The patient is maintaining sinus rhythm now. Patient is on metoprolol succinate 12.5 mg p.o. daily, thiamine 100 mg daily, aspirin 81 daily. The patient had an echo on 11/29/2017 which showed normal LV size, normal LV systolic function with ejection fraction 55%, trace aortic regurgitation, mitral regurgitation, moderate tricuspid regurgitation, RVSP 59 mmHg, status post moderate pulmonary hypertension. We will continue present therapy and told the patient again to stop drinking and continue physical therapy. We will follow with you. Lise Mary MD [facility] # [id number] [email or web address]
--- NOTE | 2018-04-12 16:21 | CP.PCM.PN ---
Subjective - Date & Time of Evaluation Date of Evaluation: 04/12/18 Time of Evaluation: 14:00 - Subjective Subjective: Infectious Disease Follow Up: April 12, 2018 72 yo primarily [place]i speaking female with left foot 2nd toe ulceration and erythema. Patient with past medical history of hypertension, facial palsy, TIA, glaucoma, cirrhosis, osteoporosis, colitis, gastritis, UTI, anxiety, depression, panic disorder, and urinary retention presenting with 2 week history of drinking 2 pints of vodka daily and one week of loss of appetite. Patient was also s/p numerous falls. Patient reported headache, dizziness, tremors, tinnitus, but no hearing loss. Patient had 10 episodes of vomiting with blood tinged vomit and numerous episodes of watery stools mixed with blood. Patient denies chest pain, heart palpitations, and shortness of breath. 12-point ROS was unreliable due to patient's somnolence and mental status. On admission patient had serum alcohol level 201, negative UDS. Patient received Ativan PRN was given with multivitamin, thiamine, folic acid. Patient also presented of abdominal pain. Abdominal CT showed no acute abdominal or pelvic pathology, hepatomegaly and fatty liver, colonic diverticulosis with no evidence of diverticulitis, fibroid uterus. Previous abdominal ultrasound from two months prior showed increased echogenicity of liver parenchyma, no mass, no intrahepatic bile duct dilation. Patient has a toe abscess. Left foot xray was negative for acute findings and MRI was negative for osteomyelitis. Wound culture grew MRSA. In TCU now. Bactrim PO for treatment at this time. No current complaints. Monitor Creatinine. Objective - Vital Signs/Intake and Output Vital Signs (last 24 hours): Temp Pulse Resp BP Pulse Ox 98.2 F 71 18 101/68 97 04/11/18 16:00 04/11/18 16:00 04/11/18 16:00 04/12/18 09:49 04/11/18 16:00 - Medications Medications: Current Medications Al Hydrox/Mg Hydrox/Simethicone (Maalox Plus 30 Ml) 30 ml PO DAILY PRN; Protocol PRN Reason: Indigestion / Heartburn Last Admin: 04/08/18 13:40 Dose: 30 ml Aspirin (Aspirin Chewable) 81 mg PO 0800 COUNT INCLUDES THE [facility]; Protocol Last Admin: 04/12/18 09:48 Dose: 81 mg Folic Acid (Folic Acid) 1 mg PO DAILY COUNT INCLUDES THE [facility]; Protocol Last Admin: 04/12/18 09:48 Dose: 1 mg Lorazepam (Ativan) 1 mg PO TID PRN; Protocol PRN Reason: Anxiety Last Admin: 04/12/18 00:23 Dose: 1 mg Metoprolol Succinate (Toprol Xl) 12.5 mg PO BRK COUNT INCLUDES THE [facility] Last Admin: 04/12/18 09:49 Dose: 12.5 mg Multivitamins/Minerals (Therapeutic-M Tab) 1 tab PO 0800 COUNT INCLUDES THE [facility]; Protocol Last Admin: 04/12/18 09:49 Dose: 1 tab Nystatin (Nystatin Oral Susp) 5 ml PO QID COUNT INCLUDES THE [facility]; Protocol Last Admin: 04/12/18 13:34 Dose: Not Given Ondansetron HCl (Zofran Inj) 4 mg IVP Q6H PRN; Protocol PRN Reason: Nausea/Vomiting Last Admin: 04/07/18 21:26 Dose: 4 mg Pantoprazole Sodium (Protonix Ec Tab) 40 mg PO 0600 COUNT INCLUDES THE [facility]; Protocol Last Admin: 04/12/18 05:38 Dose: 40 mg Quetiapine Fumarate (Seroquel) 50 mg PO HS COUNT INCLUDES THE [facility]; Protocol Last Admin: 04/11/18 21:46 Dose: 50 mg Sucralfate (Carafate Oral Susp) 1 gm PO 0630,1130,1630,2200 COUNT INCLUDES THE [facility] Last Admin: 04/12/18 13:25 Dose: Not Given Thiamine HCl (Vitamin B1 Tab) 100 mg PO DAILY COUNT INCLUDES THE [facility]; Protocol Last Admin: 04/12/18 09:49 Dose: 100 mg - Labs Labs: 04/11/18 06:55 04/11/18 06:55 - Constitutional Appears: Non-toxic, No Acute Distress, Chronically Ill - Head Exam Head Exam: ATRAUMATIC, NORMOCEPHALIC - Eye Exam Eye Exam: EOMI, PERRL Pupil Exam: NORMAL ACCOMODATION, PERRL - ENT Exam ENT Exam: Mucous Membranes Moist, Normal External Ear Exam, TM's Normal Bilaterally - Neck Exam Neck Exam: Full ROM, Normal Inspection - Respiratory Exam Respiratory Exam: Clear to Ausculation Bilateral, NORMAL BREATHING PATTERN. absent: Rales, Rhonchi, Wheezes - Cardiovascular Exam Cardiovascular Exam: REGULAR RHYTHM, RRR, +S1, +S2 - GI/Abdominal Exam GI & Abdominal Exam: Soft, Normal Bowel Sounds. absent: Distended, Tenderness - Extremities Exam Extremities Exam: Full ROM Additional comments: wound on LLE second toe with erythema, no drainage or fluctuance, dressing C/D/I - Neurological Exam Neurological Exam: Alert, Awake, CN II-XII Intact, Oriented x3 - Psychiatric Exam Psychiatric exam: Normal Affect, Normal Mood - Skin Skin Exam: Intact, Normal Color Assessment and Plan - Assessment and Plan (Free Text) Assessment: 72 yo female with heavy alcohol abuse history with MRSA in left foot ulcer/wound in 2nd toe. Supportive care. On Bactrim for treatment. No osteomyelitis in imaging studies. ESR of 54. Local wound care. Local wound care. No new complaints. Appears comfortable. For discharge today. Thank you for allowing me to participate in the care of the patient, we will follow with you.
[2018-04-12 16:59] VITALS: PULSE 91; TEMP 98.1
== END 2018-04-12 20:35 | disposition home or self-care (01) | DRG 603 ==
LOC: TRCU 17:51
PROVIDERS: ADMIT Internal Medicine; ATTEND Internal Medicine
PROC: F07 Physical Rehabilitation and Diagnostic Audiology, Rehabilitation, Motor Treatment (ICD-10-PCS; principal; 2018-04-06)
PROC: F08Z1FZ Dressing Techniques Treatment using Assistive, Adaptive, Supportive or Protective Equipment (ICD-10-PCS; 2018-04-06)
PROC: F08Z2ZZ Grooming/Personal Hygiene Treatment (ICD-10-PCS; 2018-04-07)
PROC: F07Z9FZ Gait Training/Functional Ambulation Treatment using Assistive, Adaptive, Supportive or Protective Equipment (ICD-10-PCS; 2018-04-09)
PROC: F07Z5ZZ Bed Mobility Treatment (ICD-10-PCS; 2018-04-09)
PROC: F07Z8FZ Transfer Training Treatment using Assistive, Adaptive, Supportive or Protective Equipment (ICD-10-PCS; 2018-04-09)
DX: L02.612 Cutaneous abscess of left foot (principal); F10.239 Alcohol dependence with withdrawal, unspecified; L97.529 Non-pressure chronic ulcer of other part of left foot with unspecified severity; R07.89 Other chest pain; G51.0 Bell's palsy; I10 Essential (primary) hypertension; I48.91 Unspecified atrial fibrillation; M81.0 Age-related osteoporosis without current pathological fracture; K74.60 Unspecified cirrhosis of liver; H40.9 Unspecified glaucoma; I27.20 Pulmonary hypertension, unspecified; I08.3 Combined rheumatic disorders of mitral, aortic and tricuspid valves; F32.9 Major depressive disorder, single episode, unspecified; F41.0 Panic disorder [episodic paroxysmal anxiety]; K27.9 Peptic ulcer, site unspecified, unspecified as acute or chronic, without hemorrhage or perforation; K29.70 Gastritis, unspecified, without bleeding; Y90.7 Blood alcohol level of 200-239 mg/100 ml; Z86.73 Personal history of transient ischemic attack (TIA), and cerebral infarction without residual deficits; Z87.891 Personal history of nicotine dependence; Z91.19 Patient's noncompliance with other medical treatment and regimen

== ENCOUNTER 2018-06-06 16:15 | Inpatient (IN) | payer MEDICARE, OTHER ==
[2018-06-06 16:53] VITALS: BMI 34.2
[2018-06-06] MEDS ORDERED: TDAP Vaccine 0.5 mL Syr IM ONE (16:58)
[2018-06-06] MEDS ORDERED: Morphine 4 mg/ml ISec IVP STA (16:58)
[2018-06-06] MEDS ORDERED: Morphine 2 mg/ml ISec IVP STA (17:05)
--- NOTE | 2018-06-06 17:13 | ED PDOC ---
Arrival/HPI - General Chief Complaint: Abnormal Skin Integrity Time Seen by Provider: 06/06/18 16:31 Historian: Patient - History of Present Illness Narrative History of Present Illness (Text): 06/06/18 17:10 72-year-old female with past medical history of hypertension, presents with 2- week history of pain, swelling and redness to the posterior aspect of her left mid thigh. Patient states that the lump in the back of her left thigh has been growing and has become increasingly painful. States that today she noticed that there is small amount of purulent discharge. Otherwise she reports no fever, chills, trauma, injury, numbness, decrease in range of motion. Patient has no other complaints. PMD Mihaela Past Medical History - Infectious Disease Hx of Infectious Diseases: None - Cardiac Hx Hypertension: Yes - Pulmonary Hx Respiratory Disorders: No - Neurological Hx Neurological Disorder: Yes Other/Comment: facial palsy,left facial droop 2014 - HEENT Hx HEENT Disorder: Yes Hx Glaucoma: Yes - Renal Hx Renal Disorder: No - Endocrine/Metabolic Hx Endocrine Disorders: No - Hematological/Oncological Hx Blood Disorders: Yes Hx Cirrhosis: Yes - Integumentary Hx Dermatological Disorder: No - Musculoskeletal/Rheumatological Hx Falls: No - Gastrointestinal Hx Gastrointestinal Disorders: Yes (MALNUTRITION-ETOH ABUSE) - Genitourinary/Gynecological Hx Genitourinary Disorders: Yes (UTI) Hx Reproductive Disorders: No - Psychiatric Hx Psychophysiologic Disorder: Yes Hx Anxiety: Yes Hx Depression: Yes Hx Panic Disorder: Yes Hx Substance Use: No Other/Comment: alcohol use, as per patient she drinks 3 bottles of rum daily - Surgical History Hx Cholecystectomy: Yes - Anesthesia Hx Anesthesia: Yes Hx Anesthesia Reactions: No Hx Malignant Hyperthermia: No - Suicidal Assessment Feels Threatened In Home Enviroment: No Family/Social History Family/Social History: No Known Family HX Smoking Status: Former Smoker Hx Alcohol Use: Yes (history) Amount per day: 2 Hx Substance Use: No Substance used: ALCOHOL Hx Substance Use Treatment: No Allergies/Home Meds Allergies/Adverse Reactions: Allergies No Known Allergies Allergy (Verified 04/04/18 19:03) Review of Systems - Review of Systems Constitutional: absent: Fatigue, Fevers Respiratory: absent: SOB, Cough Cardiovascular: absent: Chest Pain, Palpitations Gastrointestinal: absent: Abdominal Pain, Nausea, Vomiting Musculoskeletal: Arthralgias. absent: Back Pain, Neck Pain Skin: Abscess. absent: Rash, Skin Lesions Neurological: absent: Headache, Dizziness Physical Exam Vital Signs Temp Pulse Resp BP Pulse Ox 06/06/18 16:47 97.4 F L 98 H 18 117/79 98 Temperature: Afebrile Blood Pressure: Normal Pulse: Regular Respiratory Rate: Normal Appearance: Positive for: Well-Appearing, Non-Toxic, Comfortable Pain Distress: None Mental Status: Positive for: Alert and Oriented X 3 - Systems Exam Head: Present: Atraumatic Pupils: Present: PERRL Extroacular Muscles: Present: EOMI Conjunctiva: Present: Normal Mouth: Present: Moist Mucous Membranes Neck: Present: Normal Range of Motion Respiratory/Chest: Present: Clear to Auscultation, Good Air Exchange. No: Respiratory Distress, Accessory Muscle Use Cardiovascular: Present: Regular Rate and Rhythm, Normal S1, S2. No: Murmurs Abdomen: No: Tenderness, Distention, Peritoneal Signs Back: Present: Normal Inspection Upper Extremity: Present: Normal Inspection. No: Cyanosis, Edema Lower Extremity: Present: Normal Inspection, NORMAL PULSES, Normal ROM, Neurovascularly Intact. No: Edema, Temperature Abnormalties Neurological: Present: GCS=15, CN II-XII Intact, Speech Normal Skin: Present: Warm, Dry, Normal Color, Abscess (posterior mid L thigh : +tender, erythematous, indurated abscess ~5x5 cm in size, slightly open with small amount of yellow purulent d/c with surrounding erythema and edema). No: Rashes Lymphatic: No: Inguinal Adenopathy Psychiatric: Present: Alert, Oriented x 3, Normal Insight, Normal Concentration Medical Decision Making ED Course and Treatment: 06/06/18 17:13 Plan : - IV - Labs - Morphine / Zofran - Reassess / disposition - Blood cx / Wound cx - Surgery consult Case d/w group president Александр, who will come and evaluate the patient, he will notify surgeon supervisor erection shop Dr. Craven. 06/06/18 19:30 Patient seen and evaluated by group president. I&D will be performed by him now. Labs reviewed, normal wbc. Vancomycin IV ordered. vice president of recruiting discussed case with Dr. Craven, who recommends observation and wound check in the AM. Case d/w Dr. Morley and with outside medical sales representative, agrees with plan for observation. Patient notified of plan, she agrees with observation. - Medication Orders Current Medication Orders: Discontinued Medications Morphine Sulfate (Morphine) 2 mg IVP STAT STA Stop: 06/06/18 17:06 Ondansetron HCl (Zofran Inj) 4 mg IVP STAT STA Stop: 06/06/18 16:59 Tetanus/Reduced Diphtheria/Acell Pertussis (Boostrix Vaccine Inj) 0.5 ml IM .ONCE ONE Stop: 06/06/18 16:59 - PA / BUILDING SURVEYOR / Resident Statement MD/DO has reviewed & agrees with the documentation as recorded. Disposition/Present on Arrival - Present on Arrival Any Indicators Present on Arrival: No History of DVT/PE: No History of Uncontrolled Diabetes: No Urinary Catheter: No History of Decub. Ulcer: No History Surgical Site Infection Following: None - Disposition Have Diagnosis and Disposition been Completed?: Yes Diagnosis: Abscess or cellulitis of thigh Disposition: HOSPITALIZED Disposition Time: 19:30 Patient Plan: Observation Condition: STABLE Discharge Instructions (ExitCare): Cellulitis (ED) Forms: Bange[employer] (Vietnamese)
[2018-06-06 19:04] LABS: BASO # 0.03 K/mm3 (0.0-2.0); BASO % 0.4 % (0.0-3.0); EOS # 0.2 (0.0-0.7); EOS % 2.9 % (1.5-5.0); HEMOGLOBIN 13.1 g/dL (12.0-16.0); LYMPH # 1.4 (1.2-3.4); LYMPH % 18.1 % (22.0-35.0); MEAN CELL VOLUME 92.2 fl (80.0-105.0); MEAN CORPUSCULAR HEMOGLOBIN 30.1 pg (25.0-35.0); MEAN CORPUSCULAR HGB CONC 32.7 g/dl (31.0-37.0); MONO # 0.6 (0.1-0.6); MONO % 8.4 % (1.0-6.0); RBC 4.35 10^6/uL (3.5-6.1); RED CELL DISTRIBUTION WIDTH 12.8 % (11.5-14.5); WHITE BLOOD COUNT 7.6 10^3/uL (4.5-11.0)
[2018-06-06 19:14] LABS: INR 1.07; PARTIAL THROMBOPLASTIN TIME 37.8 Seconds (26.9-38.3); PROTHROMBIN TIME 11.9 SECONDS (9.4-12.5)
[2018-06-06] MEDS ORDERED: Lidocaine 1% Inj (20ml) IJ STA (19:14)
[2018-06-06 19:20] LABS: ALB/GLOB RATIO 0.9 (1.1-1.8); ALBUMIN 3.8 g/dL (3.0-4.8); ALT/SGPT 20 U/L (7-56); AST/SGOT 46 U/L (14-36); BLOOD UREA NITROGEN 26 mg/dL (7-21); GFR NON-AFRICAN AMERICAN > 60
--- NOTE | 2018-06-06 19:20 | CP.PCM.CON ---
History of Present Illness - History of Present Illness History of Present Illness: Surgery Consult Note. Dr. Craven 72yo F with PMHx of HTN, TIA, Anxiety, Osteoporisis, Panic disorder here for evaluation of left posterior leg lesion. Patient states that she felt a bug bite her approximately 2 weeks ago. She noted some redness and inflammation which has been getting worse. She states that the lesion started draining spontaneously, approximately 5 days ago but the pain has persisted. Denies any Fevers or chills . Denies any Chest pain or shortness of breath. Denies any N/V/D. No urinary complaints. PMHx: HTN, TIA, Anxiety, Osteoporisis, Panic disorder PSHx: Cholecystectomy Family Hx: Non-contributory Social Hx: Admits to ETOH use daily, 30 pack year history, Denies any illicit drugs NKDA Review of Systems - Review of Systems All systems: reviewed and no additional remarkable complaints except - Constitutional Constitutional: absent: Chills, Fever - EENT Eyes: absent: Change in Vision - Cardiovascular Cardiovascular: absent: Chest Pain, Dyspnea - Respiratory Respiratory: absent: Dyspnea - Gastrointestinal Gastrointestinal: absent: Abdominal Pain, Nausea, Vomiting - Genitourinary Genitourinary: absent: Dysuria - Musculoskeletal Musculoskeletal: absent: Back Pain - Integumentary Integumentary: Erythema, Lesions Past Patient History - Infectious Disease Hx of Infectious Diseases: None - Past Medical History & Family History Past Family History: Reviewed and not pertinent - Past Social History Smoking Status: Former Smoker - CARDIAC Hx Hypertension: Yes - PULMONARY Hx Respiratory Disorders: No - NEUROLOGICAL Hx Neurological Disorder: Yes Other/Comment: facial palsy,left facial droop 2014 - HEENT Hx HEENT Problems: Yes Hx Glaucoma: Yes - RENAL Hx Chronic Kidney Disease: No - ENDOCRINE/METABOLIC Hx Endocrine Disorders: No - HEMATOLOGICAL/ONCOLOGICAL Hx Blood Disorders: Yes Hx Cirrhosis: Yes - INTEGUMENTARY Hx Dermatological Problems: No - MUSCULOSKELETAL/RHEUMATOLOGICAL Hx Falls: No - GASTROINTESTINAL Hx Gastrointestinal Disorders: Yes (MALNUTRITION-ETOH ABUSE) - GENITOURINARY/GYNECOLOGICAL Hx Genitourinary Disorders: Yes (UTI) Hx Reproductive Disorders: No - PSYCHIATRIC Hx Psychophysiologic Disorder: Yes Hx Anxiety: Yes Hx Depression: Yes Hx Panic Symptoms: Yes Hx Substance Use: No Other/Comment: alcohol use, as per patient she drinks 3 bottles of rum daily - SURGICAL HISTORY Hx Cholecystectomy: Yes - ANESTHESIA Hx Anesthesia: Yes Hx Anesthesia Reactions: No Hx Malignant Hyperthermia: No Meds Allergies/Adverse Reactions: Allergies Allergy/AdvReac Type Severity Reaction Status Date / Time No Known Allergies Allergy Verified 04/04/18 19:03 Physical Exam - Constitutional Appears: Well, Non-toxic, No Acute Distress - Head Exam Head Exam: ATRAUMATIC, NORMAL INSPECTION, NORMOCEPHALIC - Eye Exam Eye Exam: EOMI, Normal appearance. absent: Scleral icterus - ENT Exam ENT Exam: Mucous Membranes Moist - Respiratory Exam Respiratory Exam: NORMAL BREATHING PATTERN. absent: Accessory Muscle Use, Respiratory Distress - Cardiovascular Exam Cardiovascular Exam: RRR. absent: JVD - GI/Abdominal Exam GI & Abdominal Exam: Soft. absent: Distended, Guarding, Rebound, Rigid - Extremities Exam Additional comments: Left posterior mid-thigh abscess approximately 4cm x 5cm, actively draining purulent material. Area of warmth and erythema around lesion. No tracking noted. Results - Vital Signs Recent Vital Signs: Last Vital Signs Temp 97.4 F L 06/06/18 16:47 Pulse 98 H 06/06/18 16:47 Resp 18 06/06/18 16:47 BP 117/79 06/06/18 16:47 Pulse Ox 98 06/06/18 16:47 - Labs Result Diagrams: 06/06/18 18:50 06/06/18 18:50 Labs: Laboratory Results - last 24 hr 06/06/18 06/06/18 18:50 18:50 WBC 7.6 D RBC 4.35 Hgb 13.1 Hct 40.1 MCV 92.2 MCH 30.1 MCHC 32.7 RDW 12.8 Plt Count 287 MPV 10.0 Neut % (Auto) 70.2 H Lymph % (Auto) 18.1 L Roosevelt % (Auto) 8.4 H Eos % (Auto) 2.9 Baso % (Auto) 0.4 Lymph # (Auto) 1.4 Roosevelt # (Auto) 0.6 Eos # (Auto) 0.2 Baso # (Auto) 0.03 Absolute Neuts (auto) 5.32 PT 11.9 INR 1.07 APTT 37.8 Assessment & Plan - Assessment and Plan (Free Text) Assessment: 72 yo F with left posterior thigh abscess. Plan: - Will plan for bedside Incision and Drainage - F/u wound culture - Continue IV Abx - Pain control - Will place packing - Daily dressing changes Further recs as per Dr. Merissa Smart PGY2 surgery
[2018-06-06] MEDS ORDERED: Vancomycin 1gm in NS 250ml 1 GM/250 ML BAG IVPB STA (19:45)
--- NOTE | 2018-06-06 20:33 | CP.PCM.HP ---
<Michelle Seymour - Last Filed: 06/06/18 21:26> History of Present Illness - History of Present Illness History of Present Illness: Resident History & Physical for Hospitalist Service Patient is a 72 year old female with past medical history hypertension, facial palsy, TIA, glaucoma, cirrhosis, osteoporosis, colitis, gastritis, UTI, anxiety, depression, panic disorder, and urinary retention presenting with chief complaint of left posterior leg lesion which began with a bug bite approximately 2 weeks ago. Patient admits to pain, erythema and inflammation which has w orsened in severity. A few days prior she noted drainage from the lesion. Denies fevers, chills, chest pain, shortness of breath, abdominal pain, diarrhea, dysuria. In ED incision and drainage of abscess was done, which patient tolerated well. She reports improvement of pain after the procedure. Patient has had extensive history of alcohol abuse in the past but states she has quit drinking since her previous admission several months ago. PMH: hypertension, facial palsy, TIA, glaucoma, cirrhosis, osteoporosis, colitis, gastritis, UTI, anxiety, depression, panic disorder, and urinary retention PSH: cholecystectomy FHx: noncontributory SHx: previously drank 2 pints of vodka daily, 30 pack year history (quit 30 years ago), denies recreational drug use Allergies: NKDA PMD: Dr. Mercado Present on Admission - Present on Admission Any Indicators Present on Admission: No Review of Systems - Review of Systems All systems: reviewed and no additional remarkable complaints except (as stated in HPI) Past Patient History - Infectious Disease Hx of Infectious Diseases: None - Past Medical History & Family History Past Family History: Reviewed and not pertinent - Past Social History Smoking Status: Former Smoker - CARDIAC Hx Hypertension: Yes - PULMONARY Hx Respiratory Disorders: No - NEUROLOGICAL Hx Neurological Disorder: Yes Other/Comment: facial palsy,left facial droop 2014 - HEENT Hx HEENT Problems: Yes Hx Glaucoma: Yes - RENAL Hx Chronic Kidney Disease: No - ENDOCRINE/METABOLIC Hx Endocrine Disorders: No - HEMATOLOGICAL/ONCOLOGICAL Hx Blood Disorders: Yes Hx Cirrhosis: Yes - INTEGUMENTARY Hx Dermatological Problems: No - MUSCULOSKELETAL/RHEUMATOLOGICAL Hx Falls: No - GASTROINTESTINAL Hx Gastrointestinal Disorders: Yes (MALNUTRITION-ETOH ABUSE) - GENITOURINARY/GYNECOLOGICAL Hx Genitourinary Disorders: Yes (UTI) Hx Reproductive Disorders: No - PSYCHIATRIC Hx Psychophysiologic Disorder: Yes Hx Anxiety: Yes Hx Depression: Yes Hx Panic Symptoms: Yes Hx Substance Use: No Other/Comment: previous alcohol use - SURGICAL HISTORY Hx Cholecystectomy: Yes - ANESTHESIA Hx Anesthesia: Yes Hx Anesthesia Reactions: No Hx Malignant Hyperthermia: No Meds Allergies/Adverse Reactions: Allergies Allergy/AdvReac Type Severity Reaction Status Date / Time No Known Allergies Allergy Verified 04/04/18 19:03 Physical Exam - Constitutional Appears: Non-toxic, No Acute Distress - Head Exam Head Exam: ATRAUMATIC, NORMOCEPHALIC - Eye Exam Eye Exam: EOMI, Normal appearance, PERRL - ENT Exam ENT Exam: Mucous Membranes Moist - Neck Exam Neck exam: Positive for: Normal Inspection - Respiratory Exam Respiratory Exam: Clear to Auscultation Bilateral, NORMAL BREATHING PATTERN. absent: Accessory Muscle Use, Rhonchi, Wheezes, Respiratory Distress - Cardiovascular Exam Cardiovascular Exam: REGULAR RHYTHM, +S1, +S2. absent: Systolic Murmur - GI/Abdominal Exam GI & Abdominal Exam: Normal Bowel Sounds, Soft. absent: Distended, Firm, Rebound, Rigid, Tenderness - Extremities Exam Additional comments: Left posterior thigh abscess with erythema Dressing C/D/I - Neurological Exam Neurological exam: Alert, CN II-XII Intact, Oriented x3 - Psychiatric Exam Psychiatric exam: Normal Affect, Normal Mood - Skin Skin Exam: Dry, Intact, Normal Color Results - Vital Signs Recent Vital Signs: Last Vital Signs Temp 97.4 F L 06/06/18 16:47 Pulse 98 H 06/06/18 16:47 Resp 18 06/06/18 16:47 BP 117/79 06/06/18 16:47 Pulse Ox 98 06/06/18 16:47 - Labs Result Diagrams: 06/06/18 18:50 06/06/18 18:50 Labs: Laboratory Results - last 24 hr 06/06/18 06/06/18 06/06/18 18:50 18:50 18:50 WBC 7.6 D RBC 4.35 Hgb 13.1 Hct 40.1 MCV 92.2 MCH 30.1 MCHC 32.7 RDW 12.8 Plt Count 287 MPV 10.0 Neut % (Auto) 70.2 H Lymph % (Auto) 18.1 L Sullivan % (Auto) 8.4 H Eos % (Auto) 2.9 Baso % (Auto) 0.4 Lymph # (Auto) 1.4 Sullivan # (Auto) 0.6 Eos # (Auto) 0.2 Baso # (Auto) 0.03 Absolute Neuts (auto) 5.32 PT 11.9 INR 1.07 APTT 37.8 Sodium 138 Potassium 4.0 Chloride 100 Carbon Dioxide 30 Anion Gap 12 BUN 26 H Creatinine 0.6 L Est GFR ( Amer) > 60 Est GFR (Non-Af Amer) > 60 Random Glucose 96 Calcium 10.0 Magnesium 2.0 Total Bilirubin 0.2 AST 46 H D ALT 20 Alkaline Phosphatase 150 H D Total Protein 8.0 Albumin 3.8 Globulin 4.2 Albumin/Globulin Ratio 0.9 L Assessment & Plan - Assessment and Plan (Free Text) Assessment: Patient is a 72 year old female with past medical history hypertension, facial palsy, TIA, glaucoma, cirrhosis, osteoporosis, colitis, gastritis, UTI, anxiety, depression, panic disorder, and urinary retention presenting with left lower extremity abscess. Plan: LLE abscess - afebrile, no leukocytosis - s/p I&D - 250 mg vanco give in ED - clindamycin 600 mg IV Q8H - Motrin PRN for pain - followup wound and blood cultures - Surgery following HTN - home metoprolol PPX - Lovenox SC, Protonix Case reviewed with Dr. Milli Seymour PGY-1 <Alfredo Morley - Last Filed: 06/07/18 05:01> Results - Vital Signs Recent Vital Signs: Last Vital Signs Temp 97.4 F L 06/06/18 16:47 Pulse 80 06/07/18 03:08 Resp 18 06/07/18 03:08 BP 127/84 06/06/18 20:50 Pulse Ox 100 06/06/18 20:50 - Labs Result Diagrams: 06/06/18 18:50 06/06/18 18:50 Labs: Laboratory Results - last 24 hr 06/06/18 06/06/18 06/06/18 18:50 18:50 18:50 WBC 7.6 D RBC 4.35 Hgb 13.1 Hct 40.1 MCV 92.2 MCH 30.1 MCHC 32.7 RDW 12.8 Plt Count 287 MPV 10.0 Neut % (Auto) 70.2 H Lymph % (Auto) 18.1 L Sullivan % (Auto) 8.4 H Eos % (Auto) 2.9 Baso % (Auto) 0.4 Lymph # (Auto) 1.4 Sullivan # (Auto) 0.6 Eos # (Auto) 0.2 Baso # (Auto) 0.03 Absolute Neuts (auto) 5.32 PT 11.9 INR 1.07 APTT 37.8 Sodium 138 Potassium 4.0 Chloride 100 Carbon Dioxide 30 Anion Gap 12 BUN 26 H Creatinine 0.6 L Est GFR ( Amer) > 60 Est GFR (Non-Af Amer) > 60 Random Glucose 96 Calcium 10.0 Magnesium 2.0 Total Bilirubin 0.2 AST 46 H D ALT 20 Alkaline Phosphatase 150 H D Total Protein 8.0 Albumin 3.8 Globulin 4.2 Albumin/Globulin Ratio 0.9 L Attending/Attestation - Attestation I have personally seen and examined this patient.: Yes I have fully participated in the care of the patient.: Yes I have reviewed all pertinent clinical information: Yes Notes (Text): 06/07/18 04:59 Patient was seen when she was in -[employer]. Medical record was reviewed. Agree with history,physical examination, assessment and plan.
[2018-06-06] MEDS ORDERED: Clindamycin in D5W 300 MG/50 ML BAG IV SCH (21:00)
--- NOTE | 2018-06-06 21:03 | PCM.SURG1 ---
Surgeon's Initial Post Op Note - Surgeon's Notes Surgeon: Dr. Craven Configuration Engineer: Bing PGY2 Type of Anesthesia: Local (10cc of 1% Lidocaine used for local anesthesia) Pre-Operative Diagnosis: Left Posterior Thigh Abscess Operative Findings: Written consent obtained and witnessed by the nursing staff. Abscess drained with approximately 10cc of purulent material expressed. Wound culture sent for analysis. Patient tolerated the procedure well Post-Operative Diagnosis: same Operation Performed: Bedside Incision and Drainage of left posterior thigh abscess Specimen/Specimens Removed: Wound culture Estimated Blood Loss: EBL {In ML}: 2 Blood Products Given: N/A Drains Used: No Drains Post-Op Condition: Good Date of Surgery/Procedure: 06/06/18 Time of Surgery/Procedure: 21:03
[2018-06-06] MEDS ORDERED: Alum-Mag Hydrox-Simethicone Susp (30 mL) PO PRN (21:10)
[2018-06-06] MEDS: Clindamycin 600mg/50ml D5W 600 MG/50 ML VIAL IVPB SCH (22:39)
[2018-06-07] MEDS: Clindamycin 600mg/50ml D5W 600 MG/50 ML VIAL IVPB SCH ×3 (06:12→21:37)
[2018-06-07] MEDS: oxyCODONE 5 mg Immediate Release Tab PO PRN ×2 (06:24→21:36)
--- NOTE | 2018-06-07 07:02 | CP.PCM.PN ---
Subjective - Date & Time of Evaluation Date of Evaluation: 06/07/18 Time of Evaluation: 06:58 - Subjective Subjective: Jorge Luis Powell PGY1 Progress Note for Dr. Craven Pt was examined at bedside this morning. She denies fever, chills, abdominal p ain, nausea, vomiting or diarrhea. She reports moderate pain in the area of the abscess. Objective - Vital Signs/Intake and Output Vital Signs (last 24 hours): Temp Pulse Resp BP Pulse Ox 97.4 F L 80 18 127/84 100 06/06/18 16:47 06/07/18 03:08 06/07/18 03:08 06/06/18 20:50 06/06/18 20:50 - Medications Medications: Current Medications Al Hydrox/Mg Hydrox/Simethicone (Maalox Plus 30 Ml) 30 ml PO DAILY PRN PRN Reason: Indigestion / Heartburn Aspirin (Aspirin Chewable) 81 mg PO 0800 MICHELA Enoxaparin Sodium (Lovenox) 40 mg SC DAILY MICHEAL; Protocol Clindamycin Phosphate (Cleocin 600mg/50ml D5w) 600 mg in 50 mls @ 50 mls/hr IVPB Q8H MICHEAL; Protocol Last Admin: 06/07/18 06:12 Dose: 50 mls/hr Ibuprofen (Motrin Tab) 400 mg PO Q6H PRN PRN Reason: Pain, Mild (1-3) Last Admin: 06/07/18 04:53 Dose: 400 mg Metoprolol Succinate (Toprol Xl) 12.5 mg PO BRK MICHEAL Oxycodone HCl (Oxycodone Immediate Release Tab) 5 mg PO Q6H PRN PRN Reason: Pain, severe (8-10) Last Admin: 06/07/18 06:24 Dose: 5 mg Pantoprazole Sodium (Protonix Ec Tab) 40 mg PO 0600 MICHEAL Zolpidem Tartrate (Ambien) 5 mg PO HS PRN; Protocol PRN Reason: Insomnia - Labs Labs: 06/06/18 18:50 06/06/18 18:50 PT 11.9 SECONDS (9.4-12.5) 06/06/18 18:50 INR 1.07 06/06/18 18:50 APTT 37.8 Seconds (26.9-38.3) 06/06/18 18:50 - Constitutional Appears: Well, No Acute Distress - Head Exam Head Exam: ATRAUMATIC, NORMOCEPHALIC - Eye Exam Eye Exam: EOMI, Normal appearance Pupil Exam: NORMAL ACCOMODATION - ENT Exam ENT Exam: Mucous Membranes Moist - Respiratory Exam Respiratory Exam: Clear to Ausculation Bilateral, NORMAL BREATHING PATTERN. absent: Rales, Rhonchi, Wheezes - Cardiovascular Exam Cardiovascular Exam: REGULAR RHYTHM, +S1, +S2. absent: Gallop, Rubs, Murmur - GI/Abdominal Exam GI & Abdominal Exam: Soft, Normal Bowel Sounds. absent: Distended, Tenderness - Extremities Exam Additional comments: L posterior thigh: 2x2cm abscess with scant purulent drainage. granulation tissue. surrounding erythema and minimal edema. - Neurological Exam Neurological Exam: Alert, Awake, Oriented x3 - Psychiatric Exam Psychiatric exam: Normal Affect, Normal Mood - Skin Skin Exam: Normal Color Assessment and Plan - Assessment and Plan (Free Text) Assessment: 72 yo F with left posterior thigh abscess. Plan: - s/p bedside Incision and Drainage 06/06/18 with 10cc purulent liquid drained - packing and dressing changed - F/u wound culture - continue IV Abx - pain control Further recs as per Dr. Craven
[2018-06-07 07:26] LABS: BASO # 0.05 K/mm3 (0.0-2.0); BASO % 0.8 % (0.0-3.0); EOS # 0.4 (0.0-0.7); EOS % 5.6 % (1.5-5.0); HEMOGLOBIN 11.3 g/dL (12.0-16.0); LYMPH # 1.5 (1.2-3.4); LYMPH % 22.7 % (22.0-35.0); MEAN CELL VOLUME 92.4 fl (80.0-105.0); MEAN CORPUSCULAR HEMOGLOBIN 29.4 pg (25.0-35.0); MEAN CORPUSCULAR HGB CONC 31.8 g/dl (31.0-37.0); MONO # 0.5 (0.1-0.6); RBC 3.84 10^6/uL (3.5-6.1); WHITE BLOOD COUNT 6.7 10^3/uL (4.5-11.0)
[2018-06-07 07:45] LABS: ALBUMIN 3.5 g/dL (3.0-4.8); ALT/SGPT 18 U/L (7-56); AST/SGOT 49 U/L (14-36); BLOOD UREA NITROGEN 27 mg/dL (7-21); CALCIUM 9.9 mg/dL (8.4-10.5); GFR NON-AFRICAN AMERICAN > 60
[2018-06-07] MEDS: Metoprolol Succinate 25 mg XL Tab PO SCH (08:01)
[2018-06-07] MEDS: Pantoprazole 40 mg EC Tab PO SCH (08:02)
[2018-06-07] MEDS: Enoxaparin 40 mg Syringe SC SCH (09:22)
--- NOTE | 2018-06-07 11:13 | CP.PCM.PCO ---
Physician Communication Note - Physician Communication Note Physician Communication Note: S/P I&D L posterior thigh absces. On Clinda IV per sx recs. Pending wcx.
--- NOTE | 2018-06-07 12:10 | CP.PCM.PN ---
<Ronaldo Lopez - Last Filed: 06/07/18 12:06> Subjective - Date & Time of Evaluation Date of Evaluation: 06/07/18 Time of Evaluation: 09:00 - Subjective Subjective: Ronaldo Lopez PGY-1 Progress Note for Hospitalist Service Patient seen and evaluated at bedside. No acute events overnight since admission. Patient denies fevers and chills, shortness of breath, chest pain, palpitations but reports pain on the left thigh from wound. Objective - Vital Signs/Intake and Output Vital Signs (last 24 hours): Temp Pulse Resp BP Pulse Ox 97.6 F 91 H 18 118/85 95 06/07/18 06:00 06/07/18 06:00 06/07/18 06:00 06/07/18 06:00 06/07/18 06:00 - Medications Medications: Current Medications Al Hydrox/Mg Hydrox/Simethicone (Maalox Plus 30 Ml) 30 ml PO DAILY PRN PRN Reason: Indigestion / Heartburn Last Admin: 06/07/18 08:01 Dose: 30 ml Aspirin (Aspirin Chewable) 81 mg PO 0800 [facility] Last Admin: 06/07/18 09:22 Dose: 81 mg Enoxaparin Sodium (Lovenox) 40 mg SC DAILY [facility]; Protocol Last Admin: 06/07/18 09:22 Dose: 40 mg Clindamycin Phosphate (Cleocin 600mg/50ml D5w) 600 mg in 50 mls @ 50 mls/hr IVPB Q8H [facility]; Protocol Last Admin: 06/07/18 06:12 Dose: 50 mls/hr Ibuprofen (Motrin Tab) 400 mg PO Q6H PRN PRN Reason: Pain, Mild (1-3) Last Admin: 06/07/18 04:53 Dose: 400 mg Metoprolol Succinate (Toprol Xl) 12.5 mg PO BRK [facility] Last Admin: 06/07/18 08:01 Dose: 12.5 mg Oxycodone HCl (Oxycodone Immediate Release Tab) 5 mg PO Q6H PRN PRN Reason: Pain, severe (8-10) Last Admin: 06/07/18 06:24 Dose: 5 mg Pantoprazole Sodium (Protonix Ec Tab) 40 mg PO 0600 [facility] Last Admin: 06/07/18 08:02 Dose: 40 mg Zolpidem Tartrate (Ambien) 5 mg PO HS PRN; Protocol PRN Reason: Insomnia - Labs Labs: 06/07/18 07:00 06/07/18 07:00 PT 11.9 SECONDS (9.4-12.5) 06/06/18 18:50 INR 1.07 06/06/18 18:50 APTT 37.8 Seconds (26.9-38.3) 06/06/18 18:50 - Additional Findings Additional findings: - Constitutional Appears: Non-toxic, No Acute Distress - Head Exam Head Exam: ATRAUMATIC, NORMOCEPHALIC - Eye Exam Eye Exam: EOMI, Normal appearance, PERRL - ENT Exam ENT Exam: Mucous Membranes Moist - Neck Exam Neck exam: Positive for: Normal Inspection - Respiratory Exam Respiratory Exam: Clear to Auscultation Bilateral, NORMAL BREATHING PATTERN. absent: Accessory Muscle Use, Rhonchi, Wheezes, Respiratory Distress - Cardiovascular Exam Cardiovascular Exam: REGULAR RHYTHM, +S1, +S2. absent: Systolic Murmur - GI/Abdominal Exam GI & Abdominal Exam: Normal Bowel Sounds, Soft. absent: Distended, Firm, Rebound, Rigid, Tenderness - Extremities Exam Additional comments: Left posterior thigh abscess with erythematous borders, currently with packing Dressing C/D/I - Neurological Exam Neurological exam: Alert, CN II-XII Intact, Oriented x3 - Psychiatric Exam Psychiatric exam: Normal Affect, Normal Mood - Skin Skin Exam: Dry, Intact, Normal Color Assessment and Plan - Assessment and Plan (Free Text) Assessment: 72 year old female with past medical history hypertension, facial palsy, TIA, glaucoma, cirrhosis, osteoporosis, colitis, gastritis, UTI, anxiety, depression, panic disorder, and urinary retention presenting with left lower extremity abscess. Plan: LLE abscess - Afebrile, no leukocytosis - s/p bedside I&D - clindamycin 600 mg IV Q8H - Motrin PRN for pain - Followup wound and blood cultures - Surgery following - Dr Craven HX of TIA c/w home ASA HTN - home metoprolol PPX - Lovenox SC, Protonix Patient seen, case reviewed and plan approved by Dr. Osiris Guardado. Ronaldo Lopez, PGY-1 <Jacque Guardado R - Last Filed: 06/08/18 10:25> Objective - Vital Signs/Intake and Output Vital Signs (last 24 hours): Temp Pulse Resp BP Pulse Ox 97.9 F 95 H 18 120/77 98 06/08/18 06:00 06/08/18 10:07 06/08/18 06:00 06/08/18 10:07 06/08/18 06:00 Intake and Output: 06/08/18 06/08/18 06:59 18:59 Intake Total 360 Output Total 600 Balance -240 - Medications Medications: Current Medications Al Hydrox/Mg Hydrox/Simethicone (Maalox Plus 30 Ml) 30 ml PO DAILY PRN PRN Reason: Indigestion / Heartburn Last Admin: 06/07/18 08:01 Dose: 30 ml Aspirin (Aspirin Chewable) 81 mg PO 0800 [facility] Last Admin: 06/08/18 10:07 Dose: 81 mg Docusate Sodium (Colace) 100 mg PO DAILY [facility] Enoxaparin Sodium (Lovenox) 40 mg SC DAILY [facility]; Protocol Last Admin: 06/08/18 10:08 Dose: 40 mg Clindamycin Phosphate (Cleocin 600mg/50ml D5w) 600 mg in 50 mls @ 50 mls/hr IVPB Q8H [facility]; Protocol Last Admin: 06/08/18 05:19 Dose: 50 mls/hr Ibuprofen (Motrin Tab) 400 mg PO Q6H PRN PRN Reason: Pain, Mild (1-3) Last Admin: 06/07/18 04:53 Dose: 400 mg Metoprolol Succinate (Toprol Xl) 12.5 mg PO BRK [facility] Last Admin: 06/08/18 10:07 Dose: 12.5 mg Oxycodone HCl (Oxycodone Immediate Release Tab) 5 mg PO Q6H PRN PRN Reason: Pain, severe (8-10) Last Admin: 06/08/18 05:23 Dose: 5 mg Pantoprazole Sodium (Protonix Ec Tab) 40 mg PO 0600 [facility] Last Admin: 06/08/18 05:20 Dose: 40 mg Polyethylene Glycol (Miralax) 17 gm PO DAILY [facility] Zolpidem Tartrate (Ambien) 5 mg PO HS PRN; Protocol PRN Reason: Insomnia Last Admin: 06/08/18 01:31 Dose: 5 mg - Labs Labs: 06/08/18 07:30 06/08/18 07:30 PT 11.9 SECONDS (9.4-12.5) 06/06/18 18:50 INR 1.07 06/06/18 18:50 APTT 37.8 Seconds (26.9-38.3) 06/06/18 18:50 Attending/Attestation - Attestation I have personally seen and examined this patient.: Yes I have fully participated in the care of the patient.: Yes I have reviewed all pertinent clinical information, including history, physical exam and plan: Yes Notes (Text): Patient seen and examined by me with resident at 11:10 AM on 06/07/18. Case including HPI, physical exam, and assessment and plan discussed with resident. Agree with above with following additions/corrections. Patient is a 72-year-old female with past medical history significant for hypertension, facial palsy, TIA, liver cirrhosis, glaucoma, osteoporosis, colitis, gastritis, UTI, anxiety and depression, panic disorder, and urinary retention that presented to the emergency room with left posterior leg lesion. Patient states she is feeling ok. Complains of left posterior thigh pain. States it is worse when it is touched. No associated fevers or chills. Patient denies abdominal pain. No nausea or vomiting. No chest pain or palpitations. No shortness of breath. No headaches or dizziness. No dysuria. Patient states she has not had a bowel movement in 4 days. Physical exam: General: Awake and alert, sitting up in bed in no acute distress. HEENT: Normocephalic, atraumatic, Extraocular muscles intact, pupils equal and reactive, no scleral icterus. Oropharynx is pink and moist. Neck is supple. Cardiovascular: Normal rhythm. Normal S1 and S2. No murmurs, rubs, or gallops appreciated. Pulmonary: Normal respiratory effort. No rhonchi, rales, or wheezing appreciated. Gastrointestinal: Soft. Nontender. Nondistended. Positive bowel sounds all 4 quadrants. No guarding. Musculoskeletal: Moves all extremities. No calf tenderness. No edema appreciated. Left posterior thigh dressing clean, dry, and intact. Central nervous system: AAO x 3. CN 2-12 grossly intact. Dermatologic: Skin warm and dry. Assessment and plan: Patient is a 72-year-old female with past medical history significant for hypertension, facial palsy, TIA, liver cirrhosis, glaucoma, osteoporosis, colitis, gastritis, UTI, anxiety and depression, panic disorder, and urinary retention that presented to the emergency room with left posterior leg lesion. 1. Left lower extremity posterior thigh abscess. LLE pain. S/P I&D 06/06/18. Surgical team following, recommendations appreciated. Continue IV clindamycin. Wound culture pending. Packing change per surgical team. 2. Essential hypertension. Continue metoprolol. 3. History of TIA. Continue home ASA. 4. Depression and anxiety. Will need to call patient's pharmacy for home medications. 5. GI/DVT prophylaxis. Protonix/lovenox. 6. Patient is a full code. Case was discussed in detail with the patient regarding current diagnosis and treatment plan. All questions answered.
[2018-06-08] MEDS: Clindamycin 600mg/50ml D5W 600 MG/50 ML VIAL IVPB SCH ×3 (05:19→22:13)
[2018-06-08] MEDS: Pantoprazole 40 mg EC Tab PO SCH (05:20)
[2018-06-08] MEDS: oxyCODONE 5 mg Immediate Release Tab PO PRN ×2 (05:23→23:55)
[2018-06-08 08:07] LABS: BASO # 0.04 K/mm3 (0.0-2.0); BASO % 0.7 % (0.0-3.0); EOS # 0.5 (0.0-0.7); EOS % 8.8 % (1.5-5.0); LYMPH # 1.8 (1.2-3.4); LYMPH % 31.7 % (22.0-35.0); MEAN CELL VOLUME 93.4 fl (80.0-105.0); MEAN CORPUSCULAR HEMOGLOBIN 29.3 pg (25.0-35.0); MEAN CORPUSCULAR HGB CONC 31.3 g/dl (31.0-37.0); MEAN PLATELET VOLUME 10.1 fl (7.0-11.0); MONO # 0.6 (0.1-0.6); MONO % 10.6 % (1.0-6.0); RBC 3.76 10^6/uL (3.5-6.1); WHITE BLOOD COUNT 5.6 10^3/uL (4.5-11.0)
[2018-06-08 08:22] LABS: ALB/GLOB RATIO 0.9 (1.1-1.8); ALBUMIN 3.4 g/dL (3.0-4.8); ALT/SGPT 28 U/L (7-56); AST/SGOT 41 U/L (14-36); BLOOD UREA NITROGEN 24 mg/dL (7-21); CALCIUM 9.7 mg/dL (8.4-10.5); GFR NON-AFRICAN AMERICAN > 60
--- NOTE | 2018-06-08 08:42 | CP.PCM.PN ---
<PeggyTima - Last Filed: 06/08/18 08:33> Subjective - Date & Time of Evaluation Date of Evaluation: 06/08/18 Time of Evaluation: 08:33 - Subjective Subjective: Surgery Progress Note for Dr. Craven 72F seen and evaluated at bedside this morning. No acute events overnight. Complains of left thigh pain that is well controlled. Denies f/c, n/v/d, SOB, CP, or urinary symptoms. Objective - Vital Signs/Intake and Output Vital Signs (last 24 hours): Temp Pulse Resp BP Pulse Ox 97.9 F 95 H 18 120/77 98 06/08/18 06:00 06/08/18 06:00 06/08/18 06:00 06/08/18 06:00 06/08/18 06:00 Intake and Output: 06/08/18 06/08/18 06:59 18:59 Intake Total 360 Output Total 600 Balance -240 - Medications Medications: Current Medications Al Hydrox/Mg Hydrox/Simethicone (Maalox Plus 30 Ml) 30 ml PO DAILY PRN PRN Reason: Indigestion / Heartburn Last Admin: 06/07/18 08:01 Dose: 30 ml Aspirin (Aspirin Chewable) 81 mg PO 0800 [facility] Last Admin: 06/07/18 09:22 Dose: 81 mg Enoxaparin Sodium (Lovenox) 40 mg SC DAILY [facility]; Protocol Last Admin: 06/07/18 09:22 Dose: 40 mg Clindamycin Phosphate (Cleocin 600mg/50ml D5w) 600 mg in 50 mls @ 50 mls/hr IVPB Q8H [facility]; Protocol Last Admin: 06/08/18 05:19 Dose: 50 mls/hr Ibuprofen (Motrin Tab) 400 mg PO Q6H PRN PRN Reason: Pain, Mild (1-3) Last Admin: 06/07/18 04:53 Dose: 400 mg Metoprolol Succinate (Toprol Xl) 12.5 mg PO BRK [facility] Last Admin: 06/07/18 08:01 Dose: 12.5 mg Oxycodone HCl (Oxycodone Immediate Release Tab) 5 mg PO Q6H PRN PRN Reason: Pain, severe (8-10) Last Admin: 06/08/18 05:23 Dose: 5 mg Pantoprazole Sodium (Protonix Ec Tab) 40 mg PO 0600 [facility] Last Admin: 06/08/18 05:20 Dose: 40 mg Zolpidem Tartrate (Ambien) 5 mg PO HS PRN; Protocol PRN Reason: Insomnia Last Admin: 06/08/18 01:31 Dose: 5 mg - Labs Labs: 06/08/18 07:30 06/08/18 07:30 PT 11.9 SECONDS (9.4-12.5) 06/06/18 18:50 INR 1.07 06/06/18 18:50 APTT 37.8 Seconds (26.9-38.3) 06/06/18 18:50 - Constitutional Appears: Well, Non-toxic, No Acute Distress - Head Exam Head Exam: ATRAUMATIC, NORMAL INSPECTION, NORMOCEPHALIC - Eye Exam Eye Exam: EOMI - ENT Exam ENT Exam: Mucous Membranes Moist - Respiratory Exam Respiratory Exam: NORMAL BREATHING PATTERN. absent: Wheezes, Respiratory Distress - Cardiovascular Exam Cardiovascular Exam: REGULAR RHYTHM, +S1, +S2. absent: Murmur - GI/Abdominal Exam GI & Abdominal Exam: Soft, Normal Bowel Sounds. absent: Tenderness - Extremities Exam Extremities Exam: Tenderness Additional comments: Left posterior thigh abscess - packing removed, no visible necrotic tissue, no active bleeding, minimal purulence noted Mild erythema surrounding wound edges - Neurological Exam Neurological Exam: Alert, Awake, Oriented x3 - Psychiatric Exam Psychiatric exam: Normal Affect, Normal Mood - Skin Skin Exam: Dry, Intact, Normal Color, Warm Assessment and Plan - Assessment and Plan (Free Text) Assessment: 72F s/p left thigh abscess bedside incision and drainage POD#2 Plan: Packing removed this morning No further debridement needed at this time Dressings applied and intact Local wound care Monitor for improvement Continue antibiotics Pain control Further recommendations per Dr. Merissa Woods PGY1 <Paulo Craven - Last Filed: 06/08/18 09:00> Objective - Vital Signs/Intake and Output Vital Signs (last 24 hours): Temp Pulse Resp BP Pulse Ox 97.9 F 95 H 18 120/77 98 06/08/18 06:00 06/08/18 06:00 06/08/18 06:00 06/08/18 06:00 06/08/18 06:00 Intake and Output: 06/08/18 06/08/18 06:59 18:59 Intake Total 360 Output Total 600 Balance -240 - Medications Medications: Current Medications Al Hydrox/Mg Hydrox/Simethicone (Maalox Plus 30 Ml) 30 ml PO DAILY PRN PRN Reason: Indigestion / Heartburn Last Admin: 06/07/18 08:01 Dose: 30 ml Aspirin (Aspirin Chewable) 81 mg PO 0800 [facility] Last Admin: 06/07/18 09:22 Dose: 81 mg Enoxaparin Sodium (Lovenox) 40 mg SC DAILY [facility]; Protocol Last Admin: 06/07/18 09:22 Dose: 40 mg Clindamycin Phosphate (Cleocin 600mg/50ml D5w) 600 mg in 50 mls @ 50 mls/hr IVPB Q8H [facility]; Protocol Last Admin: 06/08/18 05:19 Dose: 50 mls/hr Ibuprofen (Motrin Tab) 400 mg PO Q6H PRN PRN Reason: Pain, Mild (1-3) Last Admin: 06/07/18 04:53 Dose: 400 mg Metoprolol Succinate (Toprol Xl) 12.5 mg PO BRK [facility] Last Admin: 06/07/18 08:01 Dose: 12.5 mg Oxycodone HCl (Oxycodone Immediate Release Tab) 5 mg PO Q6H PRN PRN Reason: Pain, severe (8-10) Last Admin: 06/08/18 05:23 Dose: 5 mg Pantoprazole Sodium (Protonix Ec Tab) 40 mg PO 0600 [facility] Last Admin: 06/08/18 05:20 Dose: 40 mg Zolpidem Tartrate (Ambien) 5 mg PO HS PRN; Protocol PRN Reason: Insomnia Last Admin: 06/08/18 01:31 Dose: 5 mg - Labs Labs: 06/08/18 07:30 06/08/18 07:30 PT 11.9 SECONDS (9.4-12.5) 06/06/18 18:50 INR 1.07 06/06/18 18:50 APTT 37.8 Seconds (26.9-38.3) 06/06/18 18:50
[2018-06-08] MEDS: Metoprolol Succinate 25 mg XL Tab PO SCH (10:07)
[2018-06-08] MEDS: Enoxaparin 40 mg Syringe SC SCH (10:08)
--- NOTE | 2018-06-08 10:42 | CP.PCM.PN ---
<Kaz Ramirez - Last Filed: 06/08/18 10:34> Subjective - Date & Time of Evaluation Date of Evaluation: 06/08/18 Time of Evaluation: 10:35 - Subjective Subjective: Kaz Ramirez PGY1 Medicine Progress Note Patient seen and examined at bedside this morning. No acute events reported overnight. She states she has not had a BM in 3-4 days, will give colace and miralax. She continues to admits to left thigh pain, offers no new complaints at this time. ID consulted. Objective - Vital Signs/Intake and Output Vital Signs (last 24 hours): Temp Pulse Resp BP Pulse Ox 97.9 F 95 H 18 120/77 98 06/08/18 06:00 06/08/18 10:07 06/08/18 06:00 06/08/18 10:07 06/08/18 06:00 Intake and Output: 06/08/18 06/08/18 06:59 18:59 Intake Total 360 Output Total 600 Balance -240 - Medications Medications: Current Medications Al Hydrox/Mg Hydrox/Simethicone (Maalox Plus 30 Ml) 30 ml PO DAILY PRN PRN Reason: Indigestion / Heartburn Last Admin: 06/07/18 08:01 Dose: 30 ml Aspirin (Aspirin Chewable) 81 mg PO 0800 [facility] Last Admin: 06/08/18 10:07 Dose: 81 mg Docusate Sodium (Colace) 100 mg PO DAILY [facility] Enoxaparin Sodium (Lovenox) 40 mg SC DAILY [facility]; Protocol Last Admin: 06/08/18 10:08 Dose: 40 mg Clindamycin Phosphate (Cleocin 600mg/50ml D5w) 600 mg in 50 mls @ 50 mls/hr IVPB Q8H [facility]; Protocol Last Admin: 06/08/18 05:19 Dose: 50 mls/hr Ibuprofen (Motrin Tab) 400 mg PO Q6H PRN PRN Reason: Pain, Mild (1-3) Last Admin: 06/07/18 04:53 Dose: 400 mg Metoprolol Succinate (Toprol Xl) 12.5 mg PO BRK [facility] Last Admin: 06/08/18 10:07 Dose: 12.5 mg Oxycodone HCl (Oxycodone Immediate Release Tab) 5 mg PO Q6H PRN PRN Reason: Pain, severe (8-10) Last Admin: 06/08/18 05:23 Dose: 5 mg Pantoprazole Sodium (Protonix Ec Tab) 40 mg PO 0600 [facility] Last Admin: 06/08/18 05:20 Dose: 40 mg Polyethylene Glycol (Miralax) 17 gm PO DAILY [facility] Quetiapine Fumarate (Seroquel Xr) 50 mg PO HS [facility]; Protocol Zolpidem Tartrate (Ambien) 5 mg PO HS PRN; Protocol PRN Reason: Insomnia Last Admin: 06/08/18 01:31 Dose: 5 mg - Labs Labs: 06/08/18 07:30 06/08/18 07:30 PT 11.9 SECONDS (9.4-12.5) 06/06/18 18:50 INR 1.07 06/06/18 18:50 APTT 37.8 Seconds (26.9-38.3) 06/06/18 18:50 - Constitutional Appears: Non-toxic, No Acute Distress - Head Exam Head Exam: ATRAUMATIC, NORMOCEPHALIC - Eye Exam Eye Exam: EOMI, Normal appearance, PERRL - ENT Exam ENT Exam: Mucous Membranes Moist - Neck Exam Neck exam: Positive for: Normal Inspection - Respiratory Exam Respiratory Exam: Clear to Auscultation Bilateral, NORMAL BREATHING PATTERN. absent: Accessory Muscle Use, Rhonchi, Wheezes, Respiratory Distress - Cardiovascular Exam Cardiovascular Exam: REGULAR RHYTHM, +S1, +S2. absent: Systolic Murmur - GI/Abdominal Exam GI & Abdominal Exam: Normal Bowel Sounds, Soft. absent: Distended, Firm, Rebound, Rigid, Tenderness - Extremities Exam Additional comments: left thigh posterior ulcer noted, 4cm x 3cm, draining clear fluid, no pus or blood noted - Neurological Exam Neurological exam: Alert, CN II-XII Intact, Oriented x3 - Psychiatric Exam Psychiatric exam: Normal Affect, Normal Mood - Skin Skin Exam: Dry, Intact, Normal Color Assessment and Plan - Assessment and Plan (Free Text) Assessment: 72 year old female with past medical history hypertension, facial palsy, TIA, glaucoma, cirrhosis, osteoporosis, colitis, gastritis, UTI, anxiety, depression, panic disorder, and urinary retention presenting with left lower extremity abscess. Plan: LLE posterior abscess - Afebrile, no WBC count - s/p bedside I&D by surgery team, wound packing removed this morning - ID on consult, Dr. Quiroz - clindamycin day 3 - Motrin PRN for moderate pain - oxycodone 5mg q6 prn for severe pain - wound culture positive for gram positive cocci, awaiting sensitivities - blood culture shows no growth after 24 hours - Surgery following - Dr Craven, signed off f HX of TIA - continue home ASA Hx of HTN - home metoprolol succinate 12.5mg Hx of depression - continue home seroquel PPX - Lovenox/Protonix Patient seen and case discussed with Dr. Osiris Guardado. <Jacque Guardado R - Last Filed: 06/08/18 13:39> Objective - Vital Signs/Intake and Output Vital Signs (last 24 hours): Temp Pulse Resp BP Pulse Ox 97.9 F 95 H 18 120/77 98 06/08/18 06:00 06/08/18 10:07 06/08/18 06:00 06/08/18 10:07 06/08/18 06:00 Intake and Output: 06/08/18 06/08/18 06:59 18:59 Intake Total 360 Output Total 600 Balance -240 - Medications Medications: Current Medications Al Hydrox/Mg Hydrox/Simethicone (Maalox Plus 30 Ml) 30 ml PO DAILY PRN PRN Reason: Indigestion / Heartburn Last Admin: 06/07/18 08:01 Dose: 30 ml Aspirin (Aspirin Chewable) 81 mg PO 0800 [facility] Last Admin: 06/08/18 10:07 Dose: 81 mg Docusate Sodium (Colace) 100 mg PO DAILY [facility] Enoxaparin Sodium (Lovenox) 40 mg SC DAILY [facility]; Protocol Last Admin: 06/08/18 10:08 Dose: 40 mg Clindamycin Phosphate (Cleocin 600mg/50ml D5w) 600 mg in 50 mls @ 50 mls/hr IVPB Q8H [facility]; Protocol Last Admin: 06/08/18 05:19 Dose: 50 mls/hr Ibuprofen (Motrin Tab) 400 mg PO Q6H PRN PRN Reason: Pain, Mild (1-3) Last Admin: 06/07/18 04:53 Dose: 400 mg Metoprolol Succinate (Toprol Xl) 12.5 mg PO BRK [facility] Last Admin: 06/08/18 10:07 Dose: 12.5 mg Oxycodone HCl (Oxycodone Immediate Release Tab) 5 mg PO Q6H PRN PRN Reason: Pain, severe (8-10) Last Admin: 06/08/18 05:23 Dose: 5 mg Pantoprazole Sodium (Protonix Ec Tab) 40 mg PO 0600 [facility] Last Admin: 06/08/18 05:20 Dose: 40 mg Polyethylene Glycol (Miralax) 17 gm PO DAILY [facility] Quetiapine Fumarate (Seroquel Xr) 50 mg PO HS [facility]; Protocol Sucralfate (Carafate Tab) 1 gm PO 0630,1130,1630,2200 [facility] Zolpidem Tartrate (Ambien) 5 mg PO HS PRN; Protocol PRN Reason: Insomnia Last Admin: 06/08/18 01:31 Dose: 5 mg - Labs Labs: 06/08/18 07:30 06/08/18 07:30 PT 11.9 SECONDS (9.4-12.5) 06/06/18 18:50 INR 1.07 06/06/18 18:50 APTT 37.8 Seconds (26.9-38.3) 06/06/18 18:50 Attending/Attestation - Attestation I have personally seen and examined this patient.: Yes I have fully participated in the care of the patient.: Yes I have reviewed all pertinent clinical information, including history, physical exam and plan: Yes Notes (Text): Patient seen and examined by me with resident at 9:45AM on 06/08/18. Case including HPI, physical exam, and assessment and plan discussed with resident. Agree with above with following additions/corrections. Patient is a 72-year-old female with past medical history significant for hypertension, facial palsy, TIA, liver cirrhosis, glaucoma, osteoporosis, colitis, gastritis, UTI, anxiety and depression, panic disorder, and urinary retention that presented to the emergency room with left posterior leg lesion. Patient states she is feels ok. Still with left posterior thigh pain. Patient states she has "sharp burning pain" throughout the night. No associated fevers or chills. Patient denies abdominal pain. No nausea or vomiting. No chest pain or palpitations. No shortness of breath. No headaches or dizziness. No dysuria. Still with no bowel movement. Physical exam: General: Awake and alert, sitting up in bed in no acute distress. HEENT: Normocephalic, atraumatic, Extraocular muscles intact, pupils equal and reactive, no scleral icterus. Oropharynx is pink and moist. Neck is supple. Cardiovascular: Normal rhythm. Normal S1 and S2. No murmurs, rubs, or gallops appreciated. Pulmonary: Normal respiratory effort. No rhonchi, rales, or wheezing appreciated. Gastrointestinal: Soft. Nontender. Nondistended. Positive bowel sounds all 4 quadrants. No guarding. Musculoskeletal: Moves all extremities. No calf tenderness. No edema appreciated. Left posterior thigh dressing in place. Wound noted to have purulent discharge. Central nervous system: AAO x 3. CN 2-12 grossly intact. Dermatologic: Skin warm and dry. Assessment and plan: Patient is a 72-year-old female with past medical history significant for hypertension, facial palsy, TIA, liver cirrhosis, glaucoma, osteoporosis, colitis, gastritis, UTI, anxiety and depression, panic disorder, and urinary retention that presented to the emergency room with left posterior leg lesion. 1. Left lower extremity posterior thigh abscess. LLE pain. S/P I&D 06/06/18. Surgical team following, recommendations appreciated. Wound culture showing heavy growth of gram positive cocci. Packing removed today. ID consulted, follow up recommendations. Continue IV clindamycin for now. 2. Constipation. Placed on Miralax and colace. 3. Essential hypertension. Continue metprolol. 4. History of TIA. Continue home ASA. 5. Depression and anxiety. Continue home Seroquel at bedtime. 6. Gastritis. Continue home carafate. Patient takes nexium at home. Placed on protonix here. 7. GI/DVT prophylaxis. Protonix/lovenox. 8. Patient is a full code. Case was discussed in detail with the patient regarding current diagnosis and treatment plan. All questions answered.
[2018-06-08] MEDS: POLYETHYLENE GLYCOL 3350 17 GM/Dose PACKET PO SCH (13:57)
[2018-06-08] MEDS: QUEtiapine 50 mg XR Tab PO SCH (22:14)
[2018-06-09] MEDS: Clindamycin 600mg/50ml D5W 600 MG/50 ML VIAL IVPB SCH (04:59)
[2018-06-09] MEDS: Pantoprazole 40 mg EC Tab PO SCH (05:27)
[2018-06-09 08:11] LABS: BASO # 0.03 K/mm3 (0.0-2.0); BASO % 0.5 % (0.0-3.0); EOS # 0.4 (0.0-0.7); HEMOGLOBIN 11.7 g/dL (12.0-16.0); LYMPH # 2.1 (1.2-3.4); MEAN CELL VOLUME 92.6 fl (80.0-105.0); MEAN CORPUSCULAR HEMOGLOBIN 29.7 pg (25.0-35.0); MEAN CORPUSCULAR HGB CONC 32.1 g/dl (31.0-37.0); MEAN PLATELET VOLUME 10.1 fl (7.0-11.0); MONO # 0.5 (0.1-0.6); MONO % 9.3 % (1.0-6.0); RBC 3.94 10^6/uL (3.5-6.1); RED CELL DISTRIBUTION WIDTH 12.9 % (11.5-14.5); WHITE BLOOD COUNT 5.6 10^3/uL (4.5-11.0)
[2018-06-09] MEDS: Metoprolol Succinate 25 mg XL Tab PO SCH (08:26)
[2018-06-09 08:30] LABS: ALB/GLOB RATIO 0.8 (1.1-1.8); ALBUMIN 3.6 g/dL (3.0-4.8); ALT/SGPT 21 U/L (7-56); AST/SGOT 40 U/L (14-36); BLOOD UREA NITROGEN 17 mg/dL (7-21); CALCIUM 9.8 mg/dL (8.4-10.5); GFR NON-AFRICAN AMERICAN > 60
[2018-06-09] MEDS: Enoxaparin 40 mg Syringe SC SCH (09:40)
[2018-06-09] MEDS: POLYETHYLENE GLYCOL 3350 17 GM/Dose PACKET PO SCH (09:41)
[2018-06-09] MEDS: oxyCODONE 5 mg Immediate Release Tab PO PRN (12:14)
--- NOTE | 2018-06-09 12:18 | CP.PCM.PN ---
<Kaz Ramirez - Last Filed: 06/09/18 12:27> Subjective - Date & Time of Evaluation Date of Evaluation: 06/09/18 Time of Evaluation: 09:30 - Subjective Subjective: Kaz Ramirez PGY1 Medicine Progress Note Patient seen and examined at bedside this morning. No acute events reported overnight. Patient states she has pain with ambulating and is unable to walk. Offers no other complaints at this time. Objective - Vital Signs/Intake and Output Vital Signs (last 24 hours): Temp Pulse Resp BP Pulse Ox 97.6 F 74 18 148/96 H 98 06/09/18 06:00 06/09/18 08:26 06/09/18 06:00 06/09/18 08:26 06/09/18 06:00 Intake and Output: 06/09/18 06/09/18 06:59 18:59 Intake Total 640 Balance 640 - Medications Medications: Current Medications Al Hydrox/Mg Hydrox/Simethicone (Maalox Plus 30 Ml) 30 ml PO DAILY PRN PRN Reason: Indigestion / Heartburn Last Admin: 06/07/18 08:01 Dose: 30 ml Aspirin (Aspirin Chewable) 81 mg PO 0800 [facility] Last Admin: 06/09/18 08:26 Dose: 81 mg Docusate Sodium (Colace) 100 mg PO DAILY [facility] Last Admin: 06/09/18 09:41 Dose: 100 mg Doxycycline Hyclate (Doryx) 100 mg PO Q12 [facility]; Protocol Stop: 06/14/18 22:01 Enoxaparin Sodium (Lovenox) 40 mg SC DAILY [facility]; Protocol Last Admin: 06/09/18 09:40 Dose: 40 mg Ibuprofen (Motrin Tab) 400 mg PO Q6H PRN PRN Reason: Pain, Mild (1-3) Last Admin: 06/07/18 04:53 Dose: 400 mg Metoprolol Succinate (Toprol Xl) 12.5 mg PO BRK [facility] Last Admin: 06/09/18 08:26 Dose: 12.5 mg Oxycodone HCl (Oxycodone Immediate Release Tab) 5 mg PO Q6H PRN PRN Reason: Pain, severe (8-10) Last Admin: 06/08/18 23:55 Dose: 5 mg Pantoprazole Sodium (Protonix Ec Tab) 40 mg PO 0600 [facility] Last Admin: 06/09/18 05:27 Dose: 40 mg Polyethylene Glycol (Miralax) 17 gm PO DAILY [facility] Last Admin: 06/09/18 09:41 Dose: 17 gm Quetiapine Fumarate (Seroquel Xr) 50 mg PO HS [facility]; Protocol Last Admin: 06/08/18 22:14 Dose: 50 mg Sucralfate (Carafate Tab) 1 gm PO 0630,1130,1630,2200 [facility] Last Admin: 06/09/18 11:12 Dose: 1 gm Zolpidem Tartrate (Ambien) 5 mg PO HS PRN; Protocol PRN Reason: Insomnia Last Admin: 06/08/18 01:31 Dose: 5 mg - Labs Labs: 06/09/18 07:00 06/09/18 07:00 PT 11.9 SECONDS (9.4-12.5) 06/06/18 18:50 INR 1.07 06/06/18 18:50 APTT 37.8 Seconds (26.9-38.3) 06/06/18 18:50 - Constitutional Appears: Non-toxic, No Acute Distress - Head Exam Head Exam: ATRAUMATIC, NORMOCEPHALIC - Eye Exam Eye Exam: EOMI, Normal appearance, PERRL - ENT Exam ENT Exam: Mucous Membranes Moist - Neck Exam Neck exam: Positive for: Normal Inspection - Respiratory Exam Respiratory Exam: Clear to Auscultation Bilateral, NORMAL BREATHING PATTERN. absent: Accessory Muscle Use, Rhonchi, Wheezes, Respiratory Distress - Cardiovascular Exam Cardiovascular Exam: REGULAR RHYTHM, +S1, +S2. absent: Systolic Murmur - GI/Abdominal Exam GI & Abdominal Exam: Normal Bowel Sounds, Soft. absent: Distended, Firm, Rebound, Rigid, Tenderness - Extremities Exam Additional comments: left thigh posterior ulcer noted, 4cm x 3cm, draining clear fluid, no pus or blood noted - Neurological Exam Neurological exam: Alert, CN II-XII Intact, Oriented x3 - Psychiatric Exam Psychiatric exam: Normal Affect, Normal Mood - Skin Skin Exam: Dry, Intact, Normal Color Assessment and Plan - Assessment and Plan (Free Text) Assessment: 72 year old female with past medical history hypertension, facial palsy, TIA, glaucoma, cirrhosis, osteoporosis, colitis, gastritis, UTI, anxiety, depression, panic disorder, and urinary retention presenting with left lower extremity abscess. PT pending for ambulatory status. Plan: Gait instability 2/2 LLE posterior abscess with high fall risk - Afebrile, no WBC count - ID on consult, Dr. Quiroz - doxycycline day 1 out of 5 - PT pending - s/p bedside I&D by surgery team, wound packing removed this morning - Motrin PRN for moderate pain - oxycodone 5mg q6 prn for severe pain - wound culture positive for gram positive cocci, awaiting sensitivities - blood culture shows no growth after 24 hours - Surgery following - Dr Craven, signed off HX of TIA - continue home ASA Hx of HTN - home metoprolol succinate 12.5mg Hx of depression - continue home seroquel PPX - Lovenox/Protonix Patient seen and case discussed with Dr. Osiris Guardado. <Jacque Guardado R - Last Filed: 06/09/18 13:05> Objective - Vital Signs/Intake and Output Vital Signs (last 24 hours): Temp Pulse Resp BP Pulse Ox 97.6 F 74 18 148/96 H 98 06/09/18 06:00 06/09/18 08:26 06/09/18 06:00 06/09/18 08:26 06/09/18 06:00 Intake and Output: 06/09/18 06/09/18 06:59 18:59 Intake Total 640 Balance 640 - Medications Medications: Current Medications Al Hydrox/Mg Hydrox/Simethicone (Maalox Plus 30 Ml) 30 ml PO DAILY PRN PRN Reason: Indigestion / Heartburn Last Admin: 06/07/18 08:01 Dose: 30 ml Aspirin (Aspirin Chewable) 81 mg PO 0800 [facility] Last Admin: 06/09/18 08:26 Dose: 81 mg Docusate Sodium (Colace) 100 mg PO DAILY [facility] Last Admin: 06/09/18 09:41 Dose: 100 mg Doxycycline Hyclate (Doryx) 100 mg PO Q12 [facility]; Protocol Stop: 06/14/18 22:01 Enoxaparin Sodium (Lovenox) 40 mg SC DAILY [facility]; Protocol Last Admin: 06/09/18 09:40 Dose: 40 mg Ibuprofen (Motrin Tab) 400 mg PO Q6H PRN PRN Reason: Pain, Mild (1-3) Last Admin: 06/07/18 04:53 Dose: 400 mg Metoprolol Succinate (Toprol Xl) 12.5 mg PO BRK [facility] Last Admin: 06/09/18 08:26 Dose: 12.5 mg Oxycodone HCl (Oxycodone Immediate Release Tab) 5 mg PO Q6H PRN PRN Reason: Pain, severe (8-10) Last Admin: 06/09/18 12:14 Dose: 5 mg Pantoprazole Sodium (Protonix Ec Tab) 40 mg PO 0600 [facility] Last Admin: 06/09/18 05:27 Dose: 40 mg Polyethylene Glycol (Miralax) 17 gm PO DAILY [facility] Last Admin: 06/09/18 09:41 Dose: 17 gm Quetiapine Fumarate (Seroquel Xr) 50 mg PO HS [facility]; Protocol Last Admin: 06/08/18 22:14 Dose: 50 mg Sucralfate (Carafate Tab) 1 gm PO 0630,1130,1630,2200 [facility] Last Admin: 06/09/18 11:12 Dose: 1 gm Zolpidem Tartrate (Ambien) 5 mg PO HS PRN; Protocol PRN Reason: Insomnia Last Admin: 06/08/18 01:31 Dose: 5 mg - Labs Labs: 06/09/18 07:00 06/09/18 07:00 PT 11.9 SECONDS (9.4-12.5) 06/06/18 18:50 INR 1.07 06/06/18 18:50 APTT 37.8 Seconds (26.9-38.3) 06/06/18 18:50 Attending/Attestation - Attestation I have personally seen and examined this patient.: Yes I have fully participated in the care of the patient.: Yes I have reviewed all pertinent clinical information, including history, physical exam and plan: Yes Notes (Text): Patient seen and examined by me with resident at 9:15AM on 06/09/18. Case including HPI, physical exam, and assessment and plan discussed with resident. Agree with above with following additions/corrections. Patient is a 72-year-old female with past medical history significant for hypertension, facial palsy, TIA, liver cirrhosis, glaucoma, osteoporosis, colitis, gastritis, UTI, anxiety and depression, panic disorder, and urinary retention that presented to the emergency room with left posterior leg lesion. Patient states she is feels a little better. Complains of left posterior thigh pain and difficulty ambulating secondary to the pain. Patient states she is unable to go home secondary to the pain with ambulation and movement. She describes the pain as a "sharp and burning" pain that comes and goes. No associated fevers or chills. Patient denies abdominal pain. No nausea or vomiting. No chest pain or palpitations. No shortness of breath. No headaches or dizziness. No dysuria. Patient had a bowel movement today. Physical exam: General: Awake and alert, sitting up in bed in no acute distress. HEENT: Normocephalic, atraumatic, Extraocular muscles intact, pupils equal and reactive, no scleral icterus. Oropharynx is pink and moist. Neck is supple. Cardiovascular: Normal rhythm. Normal S1 and S2. No murmurs, rubs, or gallops appreciated. Pulmonary: Normal respiratory effort. No rhonchi, rales, or wheezing appreciated. Gastrointestinal: Soft. Nontender. Nondistended. Positive bowel sounds all 4 quadrants. No guarding. Musculoskeletal: Moves all extremities. No calf tenderness. No edema appreciated. Left posterior thigh dressing in place. Wound with purulent discharge. Central nervous system: AAO x 3. CN 2-12 grossly intact. Dermatologic: Skin warm and dry. Assessment and plan: Patient is a 72-year-old female with past medical history significant for hypertension, facial palsy, TIA, liver cirrhosis, glaucoma, osteoporosis, colitis, gastritis, UTI, anxiety and depression, panic disorder, and urinary retention that presented to the emergency room with left posterior leg lesion. 1. Left lower extremity posterior thigh abscess. LLE pain. Now with gait instability. S/P I&D 06/06/18. Surgical team following, recommendations appreciated. Wound culture positive for MRSA. Packing removed today. ID following, recommendations appreciated. Patient to go home on 5 days of oral doxycycline. Patient afebrile. No leukocytosis. 2. Constipation. Reoslved. Continue Miralax and colace. 3. Essential hypertension. Continue metprolol. 4. History of TIA. Continue home ASA. 5. Depression and anxiety. Continue home Seroquel at bedtime. 6. Gastritis. Continue home carafate. Patient takes nexium at home. Placed on protonix here. 7. GI/DVT prophylaxis. Protonix/lovenox. 8. Patient is a full code. 9. Dispo: Pending PT eval Case was discussed in detail with the patient regarding current diagnosis and treatment plan. All questions answered.
--- NOTE | 2018-06-09 15:19 | CON ---
DATE OF CONSULTATION: 06/09/2018 CHIEF COMPLAINT: Left thigh infection times several days. HISTORY OF PRESENT ILLNESS: This is a 72-year-old female, [facility], with a history of hypertension, obesity with BMI of 34, urinary tract infections, osteoporosis, anxiety, alcoholism and cirrhosis secondary to alcoholism, who has had a history of MRSA infections in the past, who was admitted through the emergency room on 06/06/2018 with a left mid thigh infection and pain, purulence, had an incision and drainage, packing and local wound care. Infectious Disease consultation requested. The patient states that she still has some pain. No nausea, no vomiting, no chest pain, no abdominal pain, no diarrhea or constipation. REVIEW OF SYSTEMS: Reveals a 12-point review of systems performed. PAST MEDICAL HISTORY: Significant for hypertension, obesity, BMI of 34, urinary tract infection, osteoporosis, anxiety, alcoholism, history of MRSA infection. The patient is also with cirrhosis. PAST SURGICAL HISTORY: Significant for liver biopsy in 2012. The patient also had a cholecystectomy. ALLERGIES: THE PATIENT HAS NO KNOWN ALLERGIES. No recent travel outside of [place], originally she is from [place]. MEDICATIONS AT HOME: Include Seroquel, pantoprazole, aspirin, vitamins, thiamine. PHYSICAL EXAMINATION: GENERAL: She is in bed, in no acute distress, nontoxic. VITAL SIGNS: Temperature of 98, heart rate is 71, it was up to 98 on admission, respiratory rate of 18, blood pressure is 148/80. HEENT: Examination of HEENT is unremarkable. NECK: Supple. LUNGS: Have decreased breath sounds. HEART: Normal S1, S2. ABDOMEN: Soft, nontender. EXTREMITIES: Examination of the left thigh, inside of the incision, it appears to be resolving. No discharged at this point, mild erythema. LABORATORY DATA: Laboratory examination reveals a white count of 7.6, hemoglobin of 13. Coagulation is noted. Chemistries reveal the patient's creatinine is 0.6. Alk phos is noted. Microbiology reveals MRSA sensitive to tetracycline, sensitive to Bactrim, clindamycin sensitive, erythromycin resistant, Zyvox and NSAID, with to vancomycin. ASSESSMENT AND PLAN: This is a 72-year-old female with methicillin-resistant Staphylococcus aureus abscess of the left thigh, status post incision and drainage, may use p.o. doxycycline 100 mg b.i.d. x5 days. We will discontinue the clindamycin, although it is sensitive to clindamycin, but it is resistant to erythromycin. We could not perform the detest and microbiology is at [facility]. We will use doxycycline and discontinue the clindamycin. Case discussed with primary team and Dr. Guardado. Raphael Quiroz MD
[2018-06-09] MEDS: QUEtiapine 50 mg XR Tab PO SCH (22:08)
[2018-06-10] MEDS: Pantoprazole 40 mg EC Tab PO SCH (06:38)
[2018-06-10 07:31] LABS: BASO # 0.03 K/mm3 (0.0-2.0); BASO % 0.6 % (0.0-3.0); EOS # 0.5 (0.0-0.7); EOS % 9.7 % (1.5-5.0); HEMOGLOBIN 11.6 g/dL (12.0-16.0); LYMPH % 40.2 % (22.0-35.0); MEAN CELL VOLUME 92.6 fl (80.0-105.0); MEAN CORPUSCULAR HEMOGLOBIN 29.7 pg (25.0-35.0); MEAN CORPUSCULAR HGB CONC 32.1 g/dl (31.0-37.0); MEAN PLATELET VOLUME 10.2 fl (7.0-11.0); MONO # 0.4 (0.1-0.6); RBC 3.9 10^6/uL (3.5-6.1); RED CELL DISTRIBUTION WIDTH 13.1 % (11.5-14.5)
[2018-06-10 07:46] LABS: ALB/GLOB RATIO 0.8 (1.1-1.8); ALBUMIN 3.4 g/dL (3.0-4.8); ALT/SGPT 20 U/L (7-56); AST/SGOT 41 U/L (14-36); BLOOD UREA NITROGEN 18 mg/dL (7-21); CALCIUM 9.8 mg/dL (8.4-10.5); GFR NON-AFRICAN AMERICAN > 60
[2018-06-10] MEDS: Metoprolol Succinate 25 mg XL Tab PO SCH (08:43)
[2018-06-10] MEDS: Enoxaparin 40 mg Syringe SC SCH (09:24)
[2018-06-10] MEDS: POLYETHYLENE GLYCOL 3350 17 GM/Dose PACKET PO SCH ×2 (09:24→09:42)
--- NOTE | 2018-06-10 11:40 | CP.PCM.PN ---
<Ronaldo Lopez - Last Filed: 06/10/18 16:02> Subjective - Date & Time of Evaluation Date of Evaluation: 06/10/18 Time of Evaluation: 08:00 - Subjective Subjective: Ronaldo Lopez PGY-1 Progress Note for Hospitalist Service Patient seen and evaluated at bedside. No acute events reported overnight. Patient denies fevers and chills, shortness of breath, chest pain, palpitations but reports pain on the left thigh from wound. Objective - Vital Signs/Intake and Output Vital Signs (last 24 hours): Temp Pulse Resp BP Pulse Ox 98 F 80 18 120/80 97 06/10/18 06:00 06/10/18 06:00 06/10/18 06:00 06/10/18 08:43 06/10/18 06:00 - Medications Medications: Current Medications Al Hydrox/Mg Hydrox/Simethicone (Maalox Plus 30 Ml) 30 ml PO DAILY PRN PRN Reason: Indigestion / Heartburn Last Admin: 06/07/18 08:01 Dose: 30 ml Aspirin (Aspirin Chewable) 81 mg PO 0800 [facility] Last Admin: 06/10/18 08:43 Dose: 81 mg Docusate Sodium (Colace) 100 mg PO DAILY [facility] Last Admin: 06/10/18 09:24 Dose: 100 mg Doxycycline Hyclate (Doryx) 100 mg PO Q12 [facility]; Protocol Stop: 06/14/18 22:01 Last Admin: 06/10/18 09:25 Dose: 100 mg Enoxaparin Sodium (Lovenox) 40 mg SC DAILY [facility]; Protocol Last Admin: 06/10/18 09:24 Dose: 40 mg Ibuprofen (Motrin Tab) 400 mg PO Q6H PRN PRN Reason: Pain, Mild (1-3) Last Admin: 06/07/18 04:53 Dose: 400 mg Metoprolol Succinate (Toprol Xl) 12.5 mg PO BRK [facility] Last Admin: 06/10/18 08:43 Dose: 12.5 mg Oxycodone HCl (Oxycodone Immediate Release Tab) 5 mg PO Q6H PRN PRN Reason: Pain, severe (8-10) Last Admin: 06/09/18 12:14 Dose: 5 mg Pantoprazole Sodium (Protonix Ec Tab) 40 mg PO 0600 [facility] Last Admin: 06/10/18 06:38 Dose: 40 mg Polyethylene Glycol (Miralax) 17 gm PO DAILY [facility] Last Admin: 06/10/18 09:24 Dose: 17 gm Quetiapine Fumarate (Seroquel Xr) 50 mg PO HS [facility]; Protocol Last Admin: 06/09/18 22:08 Dose: 50 mg Sucralfate (Carafate Tab) 1 gm PO 0630,1130,1630,2200 [facility] Last Admin: 06/10/18 07:09 Dose: 1 gm Zolpidem Tartrate (Ambien) 5 mg PO HS PRN; Protocol PRN Reason: Insomnia Last Admin: 06/08/18 01:31 Dose: 5 mg - Labs Labs: 06/10/18 07:00 06/10/18 07:00 PT 11.9 SECONDS (9.4-12.5) 06/06/18 18:50 INR 1.07 06/06/18 18:50 APTT 37.8 Seconds (26.9-38.3) 06/06/18 18:50 - Additional Findings Additional findings: - Constitutional Appears: Non-toxic, No Acute Distress - Head Exam Head Exam: ATRAUMATIC, NORMOCEPHALIC - Eye Exam Eye Exam: EOMI, Normal appearance, PERRL - ENT Exam ENT Exam: Mucous Membranes Moist - Neck Exam Neck exam: Positive for: Normal Inspection - Respiratory Exam Respiratory Exam: Clear to Auscultation Bilateral, NORMAL BREATHING PATTERN. absent: Accessory Muscle Use, Rhonchi, Wheezes, Respiratory Distress - Cardiovascular Exam Cardiovascular Exam: REGULAR RHYTHM, +S1, +S2. absent: Systolic Murmur - GI/Abdominal Exam GI & Abdominal Exam: Normal Bowel Sounds, Soft. absent: Distended, Firm, Rebound, Rigid, Tenderness - Extremities Exam Additional comments: Left posterior thigh abscess with erythematous and necrotic borders, currently without packing Dressing C/D/I - Neurological Exam Neurological exam: Alert, CN II-XII Intact, Oriented x3 - Psychiatric Exam Psychiatric exam: Normal Affect, Normal Mood - Skin Skin Exam: Dry, Intact, Normal Color Assessment and Plan - Assessment and Plan (Free Text) Assessment: 72 year old female with past medical history hypertension, facial palsy, TIA, glaucoma, cirrhosis, osteoporosis, colitis, gastritis, UTI, anxiety, depression, panic disorder, and urinary retention presenting with left lower extremity abscess. PT pending for ambulatory status. TCU eval pending. Plan: Gait instability 2/2 LLE posterior abscess with high fall risk - Afebrile, no leukocytosis - ID on consult, Dr. Quiroz - doxycycline day 2 out of 5 - PT eval pending - s/p bedside I&D by surgery team, wound packing removed - Motrin PRN for moderate pain - oxycodone 5mg q6 prn for severe pain - wound culture positive for MRSA - blood culture shows no growth after 3 days - Surgery following - Dr Craven, signed off HX of TIA - continue home ASA Hx of HTN - home metoprolol succinate 12.5mg Hx of depression - continue home seroquel PPX - Lovenox/Protonix Patient seen, case reviewed and plan approved by Dr. Osiris Guardado. Ronaldo Lopez, PGY-1 <Jacque Guardado R - Last Filed: 06/10/18 16:08> Objective - Vital Signs/Intake and Output Vital Signs (last 24 hours): Temp Pulse Resp BP Pulse Ox 0 F L 0 L 0 L 120/80 0 L 06/10/18 14:00 06/10/18 14:00 06/10/18 14:00 06/10/18 08:43 06/10/18 14:00 - Medications Medications: Current Medications Al Hydrox/Mg Hydrox/Simethicone (Maalox Plus 30 Ml) 30 ml PO DAILY PRN PRN Reason: Indigestion / Heartburn Last Admin: 06/07/18 08:01 Dose: 30 ml Aspirin (Aspirin Chewable) 81 mg PO 0800 [facility] Last Admin: 06/10/18 08:43 Dose: 81 mg Docusate Sodium (Colace) 100 mg PO DAILY [facility] Last Admin: 06/10/18 09:24 Dose: 100 mg Doxycycline Hyclate (Doryx) 100 mg PO Q12 [facility]; Protocol Stop: 06/14/18 22:01 Last Admin: 06/10/18 09:25 Dose: 100 mg Enoxaparin Sodium (Lovenox) 40 mg SC DAILY [facility]; Protocol Last Admin: 06/10/18 09:24 Dose: 40 mg Ibuprofen (Motrin Tab) 400 mg PO Q6H PRN PRN Reason: Pain, Mild (1-3) Last Admin: 06/07/18 04:53 Dose: 400 mg Metoprolol Succinate (Toprol Xl) 12.5 mg PO BRK [facility] Last Admin: 06/10/18 08:43 Dose: 12.5 mg Oxycodone HCl (Oxycodone Immediate Release Tab) 5 mg PO Q6H PRN PRN Reason: Pain, severe (8-10) Last Admin: 06/09/18 12:14 Dose: 5 mg Pantoprazole Sodium (Protonix Ec Tab) 40 mg PO 0600 [facility] Last Admin: 06/10/18 06:38 Dose: 40 mg Polyethylene Glycol (Miralax) 17 gm PO DAILY [facility] Last Admin: 06/10/18 09:42 Dose: Not Given Quetiapine Fumarate (Seroquel Xr) 50 mg PO HS [facility]; Protocol Last Admin: 06/09/18 22:08 Dose: 50 mg Sucralfate (Carafate Tab) 1 gm PO 0630,1130,1630,2200 [facility] Last Admin: 06/10/18 13:44 Dose: Not Given Zolpidem Tartrate (Ambien) 5 mg PO HS PRN; Protocol PRN Reason: Insomnia Last Admin: 06/08/18 01:31 Dose: 5 mg - Labs Labs: 06/10/18 07:00 06/10/18 07:00 PT 11.9 SECONDS (9.4-12.5) 06/06/18 18:50 INR 1.07 06/06/18 18:50 APTT 37.8 Seconds (26.9-38.3) 06/06/18 18:50 Attending/Attestation - Attestation I have personally seen and examined this patient.: Yes I have fully participated in the care of the patient.: Yes I have reviewed all pertinent clinical information, including history, physical exam and plan: Yes Notes (Text): Patient seen and examined by me with resident at 9:55AM on 06/10/18. Case including HPI, physical exam, and assessment and plan discussed with resident. Agree with above with following additions/corrections. Patient is a 72-year-old female with past medical history significant for hypertension, facial palsy, TIA, liver cirrhosis, glaucoma, osteoporosis, co litis, gastritis, UTI, anxiety and depression, panic disorder, and urinary retention that presented to the emergency room with left posterior leg lesion. Patient states she is feeling ok. Still having sharp intermittent "burning" pain with movement at left posterior thigh abscess site. She states she is haivng difficulty ambulating because of this. She denies any associated fevers or chills. No abdominal pain. No nausea or vomiting. No chest pain or palpitations. No shortness of breath. No headaches or dizziness. No dysuria. Patient is having bowel movements Physical exam: General: Awake and alert, sitting up in bed in no acute distress. HEENT: Normocephalic, atraumatic, Extraocular muscles intact, pupils equal and reactive, no scleral icterus. Oropharynx is pink and moist. Neck is supple. Cardiovascular: Normal rhythm. Normal S1 and S2. No murmurs, rubs, or gallops appreciated. Pulmonary: Normal respiratory effort. No rhonchi, rales, or wheezing appreciated. Gastrointestinal: Soft. Nontender. Nondistended. Positive bowel sounds all 4 quadrants. No guarding. Musculoskeletal: Moves all extremities. No calf tenderness. No edema appreciated. Left posterior thigh dressing in place; dry, clean, and intact. Central nervous system: AAO x 3. CN 2-12 grossly intact. Dermatologic: Skin warm and dry. Assessment and plan: Patient is a 72-year-old female with past medical history s ignificant for hypertension, facial palsy, TIA, liver cirrhosis, glaucoma, osteoporosis, colitis, gastritis, UTI, anxiety and depression, panic disorder, and urinary retention that presented to the emergency room with left posterior leg lesion. 1. Left lower extremity posterior thigh abscess. LLE pain. Now with gait instability. S/P I&D 06/06/18. Surgical team following, recommendations appreciated. Wound culture positive for MRSA. Packing removed 06/09/18. ID following, recommendations appreciated. Patient to go on 5 days of oral doxycycline. Patient afebrile. No leukocytosis. TCU recommended by PT. Pending placement. 2. Constipation. Reoslved. Continue Miralax and colace. 3. Essential hypertension. Continue metoprolol. 4. History of TIA. Continue home ASA. 5. Depression and anxiety. Continue home Seroquel at bedtime. 6. Gastritis. Continue home carafate. Patient takes nexium at home. Continue protonix here. 7. GI/DVT prophylaxis. Protonix/lovenox. 8. Patient is a full code. 9. Dispo: Pending TCU placement Case was discussed in detail with the patient regarding current diagnosis and treatment plan. All questions answered.
--- NOTE | 2018-06-10 13:19 | CP.PCM.PCO ---
Physician Communication Note - Physician Communication Note Physician Communication Note: pt is cleared by psychiatric team to go to TCU, continue seroquel, will f/u
--- NOTE | 2018-06-10 18:11 | PN ---
DATE: 06/10/2018 SUBJECTIVE: The patient is in bed and seen in [facility], bed two. No fevers and chills. No nausea. PHYSICAL EXAMINATION: VITAL SIGNS: Temperature is 98 blood pressure is 120/80, respiratory rate 16. HEENT: Unremarkable. NECK: Supple. LUNGS: Have decreased breath sounds. HEART: Normal S1 and S2. ABDOMEN: Soft. . LABORATORY DATA: Reveals a white count of 5, hemoglobin 11, BUN of 18, creatinine 0.6. Microbiology reveals MRSA sensitive to tetracycline. MEDICATIONS: Review of orders reveals the patient to be on p.o. doxycycline. ASSESSMENT AND PLAN: This is a 72-year-old female who is originally from [place], has hypertension and obesity, body mass index of 34, urinary tract infection, osteoporosis, anxiety, alcoholism, cirrhosis of liver secondary to alcoholism, was admitted now with methicillin-resistant staphylococcus aureus abscess status post incision and drainage would complete five days of p.o. doxycycline. Raphael Quiroz MD
[2018-06-10] MEDS: QUEtiapine 50 mg XR Tab PO SCH (21:02)
[2018-06-10] MEDS: oxyCODONE 5 mg Immediate Release Tab PO PRN (21:02)
[2018-06-11] MEDS: Pantoprazole 40 mg EC Tab PO SCH (05:49)
[2018-06-11 07:12] LABS: BASO # 0.03 K/mm3 (0.0-2.0); BASO % 0.6 % (0.0-3.0); EOS # 0.5 (0.0-0.7); EOS % 9.1 % (1.5-5.0); HEMOGLOBIN 11.6 g/dL (12.0-16.0); LYMPH % 37.2 % (22.0-35.0); MEAN CELL VOLUME 92.8 fl (80.0-105.0); MEAN CORPUSCULAR HEMOGLOBIN 29.8 pg (25.0-35.0); MEAN CORPUSCULAR HGB CONC 32.1 g/dl (31.0-37.0); MONO # 0.4 (0.1-0.6); MONO % 6.8 % (1.0-6.0); RBC 3.89 10^6/uL (3.5-6.1); RED CELL DISTRIBUTION WIDTH 13.2 % (11.5-14.5); WHITE BLOOD COUNT 5.3 10^3/uL (4.5-11.0)
[2018-06-11 07:20] LABS: ALB/GLOB RATIO 0.9 (1.1-1.8); ALBUMIN 3.6 g/dL (3.0-4.8); ALT/SGPT 18 U/L (7-56); AST/SGOT 44 U/L (14-36); BLOOD UREA NITROGEN 19 mg/dL (7-21); CALCIUM 9.8 mg/dL (8.4-10.5); GFR NON-AFRICAN AMERICAN > 60
[2018-06-11 07:39] VITALS: PULSE 76; RESP 18; TEMP 98.2; O2SAT 98
[2018-06-11] MEDS: Metoprolol Succinate 25 mg XL Tab PO SCH (10:20)
[2018-06-11] MEDS: POLYETHYLENE GLYCOL 3350 17 GM/Dose PACKET PO SCH (10:20)
[2018-06-11] MEDS: Enoxaparin 40 mg Syringe SC SCH (10:20)
[2018-06-11 10:21] VITALS: BP 123/88
--- NOTE | 2018-06-11 14:06 | PN ---
DATE: 06/11/2018 SUBJECTIVE: The patient is in bed in no acute distress, nontoxic. OBJECTIVE: VITAL SIGNS: On exam, temperature is 98, blood pressure is 106/60, respiratory rate of 18, heart rate of 76. HEENT: Unremarkable. NECK: Supple. LUNGS: Have decreased breath sounds. HEART: Normal S1 and S2. ABDOMEN: Soft. EXTREMITIES: Examination of leg is noted. LABORATORY EXAMINATION: Reveals a white count of 5.3, hemoglobin 11. Chemistries are noted. Microbiology reveals MRSA from the wound culture. The patient is on p.o. doxycycline. ASSESSMENT AND PLAN: This is a 72-year-old female seen earlier today, in room 570. She is originally from [place]. She has hypertension, obesity, body mass index of 34, urinary tract infection, osteoporosis, anxiety, alcoholism, cirrhosis of liver secondary to alcoholism admitted with methicillin-resistant staphylococcus aureus abscess, status post incision and drainage on her thigh, currently on p.o. doxycycline, complete 5 days. Raphael Quiroz MD
[2018-06-11] MEDS ORDERED: QUEtiapine 50 mg XR Tab PO PRN (15:32)
--- NOTE | 2018-06-11 16:19 | CP.PCM.DIS ---
<JohnRonaldo - Last Filed: 06/11/18 15:53> Provider - Provider Date of Admission: 06/08/18 10:14 Attending physician: Sole Dueñas MD Primary care physician: Dr. Mercado Consults: 06/06/18 19:10 General Surgery Consult Stat Comment: Consulting Provider: Paulo Craven Consulting Physician: Paulo Craven Reason for Consult: abscess 06/08/18 10:00 Infectious Disease Consult Routine Comment: Consulting Provider: Raphael Quiroz Consulting Physician: Raphael Quiroz Reason for Consult: left thigh abscess 06/09/18 18:04 Wound Care [Nursing Referral for Wound Care] Routine Comment: Physician Instructions: Daily dressing changes with efren Reason For Exam: s/p L thigh I&D 06/10/18 10:52 TCU [Evaluation for TRCU] Routine Comment: Physician Instructions: Reason For Exam: rehab 06/10/18 13:11 Consult [Physician Consult] Routine Comment: Consulting Provider: Pam Mathews Consulting Physician: Pam Mathews Reason for Consult: hx of depression, takes seroquel Time Spent in preparation of Discharge (in minutes): 40 Hospital Course - Lab Results Lab Results: Micro Results 06/06/18 22:30 Blood Blood Culture - Preliminary NO GROWTH AFTER 4 DAYS 06/06/18 18:50 Blood Blood Culture - Preliminary NO GROWTH AFTER 4 DAYS 06/06/18 20:30 Abscess - Leg-Left Gram Stain - Final 06/06/18 20:30 Abscess - Leg-Left Wound Culture - Final Methicillin Resistant S Aureus 06/07/18 16:00 Urine,Clean Catch Urine Culture - Final No Growth (<1,000 CFU/ML) 06/07/18 14:30 Naris MRSA Culture (Admit) - Final MRSA DETECTED Most Recent Lab Values WBC 5.3 10^3/uL (4.5-11.0) 06/11/18 06:30 RBC 3.89 10^6/uL (3.5-6.1) 06/11/18 06:30 Hgb 11.6 g/dL (12.0-16.0) L 06/11/18 06:30 Hct 36.1 % (36.0-48.0) 06/11/18 06:30 MCV 92.8 fl (80.0-105.0) 06/11/18 06:30 MCH 29.8 pg (25.0-35.0) 06/11/18 06:30 MCHC 32.1 g/dl (31.0-37.0) 06/11/18 06:30 RDW 13.2 % (11.5-14.5) 06/11/18 06:30 Plt Count 294 10^3/uL (120.0-450.0) 06/11/18 06:30 MPV 10.0 fl (7.0-11.0) 06/11/18 06:30 Neut % (Auto) 46.3 % (50.0-68.0) L 06/11/18 06:30 Lymph % (Auto) 37.2 % (22.0-35.0) H 06/11/18 06:30 Floyd % (Auto) 6.8 % (1.0-6.0) H 06/11/18 06:30 Eos % (Auto) 9.1 % (1.5-5.0) H 06/11/18 06:30 Baso % (Auto) 0.6 % (0.0-3.0) 06/11/18 06:30 Lymph # (Auto) 2.0 (1.2-3.4) 06/11/18 06:30 Floyd # (Auto) 0.4 (0.1-0.6) 06/11/18 06:30 Eos # (Auto) 0.5 (0.0-0.7) 06/11/18 06:30 Baso # (Auto) 0.03 K/mm3 (0.0-2.0) 06/11/18 06:30 Absolute Neuts (auto) 2.46 (1.4-6.5) 06/11/18 06:30 PT 11.9 SECONDS (9.4-12.5) 06/06/18 18:50 INR 1.07 06/06/18 18:50 APTT 37.8 Seconds (26.9-38.3) 06/06/18 18:50 Sodium 138 mmol/L (132-148) 06/11/18 06:30 Potassium 4.1 mmol/L (3.6-5.0) 06/11/18 06:30 Chloride 101 mmol/L (98-107) 06/11/18 06:30 Carbon Dioxide 33 mmol/L (21-33) 06/11/18 06:30 Anion Gap 9 (10-20) L 06/11/18 06:30 BUN 19 mg/dL (7-21) 06/11/18 06:30 Creatinine 0.7 mg/dl (0.7-1.2) 06/11/18 06:30 Est GFR ( Amer) > 60 06/11/18 06:30 Est GFR (Non-Af Amer) > 60 06/11/18 06:30 Random Glucose 112 mg/dL (70-110) H 06/11/18 06:30 Calcium 9.8 mg/dL (8.4-10.5) 06/11/18 06:30 Phosphorus 4.1 mg/dL (2.5-4.5) 06/08/18 07:30 Magnesium 2.0 mg/dL (1.7-2.2) 06/08/18 07:30 Total Bilirubin 0.1 mg/dL (0.2-1.3) L 06/11/18 06:30 AST 44 U/L (14-36) H 06/11/18 06:30 ALT 18 U/L (7-56) 06/11/18 06:30 Alkaline Phosphatase 129 U/L (38-126) H 06/11/18 06:30 Total Protein 7.6 g/dL (5.8-8.3) 06/11/18 06:30 Albumin 3.6 g/dL (3.0-4.8) 06/11/18 06:30 Globulin 4.0 gm/dL 06/11/18 06:30 Albumin/Globulin Ratio 0.9 (1.1-1.8) L 06/11/18 06:30 - Hospital Course Hospital Course: Ronaldo Lopez, PGY-1 Discharge Summary for Hospitalist Service 72-year-old female with past medical history significant for hypertension, facial palsy, TIA, liver cirrhosis, glaucoma, osteoporosis, colitis, gastritis, UTI, anxiety and depression, panic disorder, and urinary retention that presented to the emergency room with left posterior leg lesion and pain that had been worsening for 2 weeks. Surgery was consulted for possible bug bite, for which patient received I&D on 06/06/18. Infectious disease - Dr Quiroz was also consulted for antibiotic coverage. Wound culture positive for MRSA, for which patient was placed on contact precaution. Packing was removed on 06/09/18. Patient was started on 5 days of oral doxycycline and will complete remainder as outpatient. Patient remained afebrile without leukocytosis. TCU was initially recommended by PT for placement but patient was denied placement. Psychiatry was consulted for evaluation in preparation for possible TCU transfer, in which patient was cleared. For patient constipation, Miralax and colace was used. For her essential hypertension, the team continued metoprolol. For her history of TIA, the team continued home ASA. For her depression and anxiety, the team continued home Seroquel at bedtime. For hx of gastritis, we continued home carafate and added protonix. On day of discharge, patient states she is feeling ok with occasional sharp intermittent burning pain at left posterior thigh abscess site. She states she is having difficulty ambulating because of this. She denies any associated fevers or chills, abdominal pain, nausea or vomiting, chest pain, palpitations, shortness of breath, headaches or dizziness, dysuria. Physical therapy recommended home with services, but patient refuses PT at home. A script was provided for outpatient PT. Patient was counseled on continuing her medications, including completing her antibiotic course at home and to follow up with her PMD and surgeon within one week. Patient was told to keep wound site clean and dry. Patient demonstrated understanding and was satisfied with the pl an and was in agreement for discharge. For further details, please refer to EMR. Patient seen, case reviewed and plan approved by Dr. Osiris Guardado. Ronaldo Lopez, PGY-1 Discharge Exam - Additional Findings Additional findings: - Constitutional Appears: Non-toxic, No Acute Distress - Head Exam Head Exam: ATRAUMATIC, NORMOCEPHALIC - Eye Exam Eye Exam: EOMI, Normal appearance, PERRL - ENT Exam ENT Exam: Mucous Membranes Moist - Neck Exam Neck exam: Positive for: Normal Inspection - Respiratory Exam Respiratory Exam: Clear to Auscultation Bilateral, NORMAL BREATHING PATTERN. absent: Accessory Muscle Use, Rhonchi, Wheezes, Respiratory Distress - Cardiovascular Exam Cardiovascular Exam: REGULAR RHYTHM, +S1, +S2. absent: Systolic Murmur - GI/Abdominal Exam GI & Abdominal Exam: Normal Bowel Sounds, Soft. absent: Distended, Firm, Rebound, Rigid, Tenderness - Extremities Exam Additional comments: Left posterior thigh abscess with erythematous and necrotic borders, without p acking Dressing C/D/I - Neurological Exam Neurological exam: Alert, CN II-XII Intact, Oriented x3 - Psychiatric Exam Psychiatric exam: Normal Affect, Normal Mood - Skin Skin Exam: Dry, Intact, Normal Color Discharge Plan - Discharge Medications Prescriptions: Doxycycline Hyclate [Doryx] 100 mg PO Q12 #6 cap - Follow Up Plan Condition: STABLE Disposition: HOME/ ROUTINE Instructions: Methicillin-Resistant Staphylococcus aureus (MRSA), Pneumococcal Conjugate Vaccine (13-Valent), Cellulitis (Skin Infection), Adult (DC), Alcohol Abuse and Alcoholism (DC), Influenza Virus Vaccine (Inactivated), Abscess (GEN) Additional Instructions: Please follow up with your primary doctor Dr. Mercado within 3-5 days. Please follow up with Dr. Craven in his office within one week for your left thigh wound. His office # is Please continue taking all home medications, and please complete course of Doxycycline antibiotic as prescribed. You may use over the counter pain medications as directed if needed. Please complete your physical therapy sessions in order to help with your ability to walk, you have been given a prescription for outpatient physical therapy as you did not want home physical therapy. Please keep wound clean and dry. Should pain worsen, please visit nearest emergency department. Referrals: Paulo Craven MD [Staff Provider] - <GeoJacque R - Last Filed: 06/11/18 17:02> Provider - Provider Date of Admission: 06/08/18 10:14 Attending physician: Sole Dueñas MD Consults: 06/06/18 19:10 General Surgery Consult Stat Comment: Consulting Provider: Paulo Craven Consulting Physician: Paulo Craven Reason for Consult: abscess 06/08/18 10:00 Infectious Disease Consult Routine Comment: Consulting Provider: Raphael Quiroz Consulting Physician: Raphael Quiroz Reason for Consult: left thigh abscess 06/09/18 18:04 Wound Care [Nursing Referral for Wound Care] Routine Comment: Physician Instructions: Daily dressing changes with ayseazfidencio Reason For Exam: s/p L thigh I&D 06/10/18 10:52 TCU [Evaluation for TRCU] Routine Comment: Physician Instructions: Reason For Exam: rehab 06/10/18 13:11 Consult [Physician Consult] Routine Comment: Consulting Provider: Pam Mathews Consulting Physician: Pam Mathews Reason for Consult: hx of depression, takes [facility] Course - Lab Results Lab Results: Micro Results 06/06/18 22:30 Blood Blood Culture - Preliminary NO GROWTH AFTER 4 DAYS 06/06/18 18:50 Blood Blood Culture - Preliminary NO GROWTH AFTER 4 DAYS 06/06/18 20:30 Abscess - Leg-Left Gram Stain - Final 06/06/18 20:30 Abscess - Leg-Left Wound Culture - Final Methicillin Resistant S Aureus 06/07/18 16:00 Urine,Clean Catch Urine Culture - Final No Growth (<1,000 CFU/ML) 06/07/18 14:30 Naris MRSA Culture (Admit) - Final MRSA DETECTED Most Recent Lab Values WBC 5.3 10^3/uL (4.5-11.0) 06/11/18 06:30 RBC 3.89 10^6/uL (3.5-6.1) 06/11/18 06:30 Hgb 11.6 g/dL (12.0-16.0) L 06/11/18 06:30 Hct 36.1 % (36.0-48.0) 06/11/18 06:30 MCV 92.8 fl (80.0-105.0) 06/11/18 06:30 MCH 29.8 pg (25.0-35.0) 06/11/18 06:30 MCHC 32.1 g/dl (31.0-37.0) 06/11/18 06:30 RDW 13.2 % (11.5-14.5) 06/11/18 06:30 Plt Count 294 10^3/uL (120.0-450.0) 06/11/18 06:30 MPV 10.0 fl (7.0-11.0) 06/11/18 06:30 Neut % (Auto) 46.3 % (50.0-68.0) L 06/11/18 06:30 Lymph % (Auto) 37.2 % (22.0-35.0) H 06/11/18 06:30 Floyd % (Auto) 6.8 % (1.0-6.0) H 06/11/18 06:30 Eos % (Auto) 9.1 % (1.5-5.0) H 06/11/18 06:30 Baso % (Auto) 0.6 % (0.0-3.0) 06/11/18 06:30 Lymph # (Auto) 2.0 (1.2-3.4) 06/11/18 06:30 Floyd # (Auto) 0.4 (0.1-0.6) 06/11/18 06:30 Eos # (Auto) 0.5 (0.0-0.7) 06/11/18 06:30 Baso # (Auto) 0.03 K/mm3 (0.0-2.0) 06/11/18 06:30 Absolute Neuts (auto) 2.46 (1.4-6.5) 06/11/18 06:30 PT 11.9 SECONDS (9.4-12.5) 06/06/18 18:50 INR 1.07 06/06/18 18:50 APTT 37.8 Seconds (26.9-38.3) 06/06/18 18:50 Sodium 138 mmol/L (132-148) 06/11/18 06:30 Potassium 4.1 mmol/L (3.6-5.0) 06/11/18 06:30 Chloride 101 mmol/L (98-107) 06/11/18 06:30 Carbon Dioxide 33 mmol/L (21-33) 06/11/18 06:30 Anion Gap 9 (10-20) L 06/11/18 06:30 BUN 19 mg/dL (7-21) 06/11/18 06:30 Creatinine 0.7 mg/dl (0.7-1.2) 06/11/18 06:30 Est GFR ( Amer) > 60 06/11/18 06:30 Est GFR (Non-Af Amer) > 60 06/11/18 06:30 Random Glucose 112 mg/dL (70-110) H 06/11/18 06:30 Calcium 9.8 mg/dL (8.4-10.5) 06/11/18 06:30 Phosphorus 4.1 mg/dL (2.5-4.5) 06/08/18 07:30 Magnesium 2.0 mg/dL (1.7-2.2) 06/08/18 07:30 Total Bilirubin 0.1 mg/dL (0.2-1.3) L 06/11/18 06:30 AST 44 U/L (14-36) H 06/11/18 06:30 ALT 18 U/L (7-56) 06/11/18 06:30 Alkaline Phosphatase 129 U/L (38-126) H 06/11/18 06:30 Total Protein 7.6 g/dL (5.8-8.3) 06/11/18 06:30 Albumin 3.6 g/dL (3.0-4.8) 06/11/18 06:30 Globulin 4.0 gm/dL 06/11/18 06:30 Albumin/Globulin Ratio 0.9 (1.1-1.8) L 06/11/18 06:30 Attending/Attestation - Attestation I have personally seen and examined this patient.: Yes I have fully participated in the care of the patient.: Yes I have reviewed all pertinent clinical information, including history, physical exam and plan: Yes Notes (Text): Patient seen and examined by me with resident at approximately 10:40AM and prior to discharge on 06/11/18. Case including discharge plan discussed with resident. Agree with above with following additions/corrections. Patient is a 72-year-old female with past medical history significant for hypertension, facial palsy, TIA, liver cirrhosis, glaucoma, osteoporosis, colitis, gastritis, UTI, anxiety and depression, panic disorder, and urinary retention that presented to the emergency room with left posterior leg lesion. Please see H&P for full details. Patient was found to have lower extremity posterior thigh abscess, left lower extremity pain, gait instability, constipation, essential hypertension, history of TIA, depression and anxiety, and history of gastritis. Patient and I and D with surgical team of left posterior thigh abscess on 06/06/2018. Area was packed and removed on 06/09/2018. Was seen by infectious disease doctor. Wound culture was positive for MRSA. Per ID, patient was placed on 5 days of oral doxycycline. Patient was afebrile and had no leukocytosis. Patient initially had some gait instability secondary to pain in the area. Seen by physical therapist who initially recommended TCU. However, the following day patient was receiving physical therapy and patient was ambulating much better. Home with services was recommended. Patient refused home with services. Patient was given a prescription for outpatient physical therapy. Patient also had constipation which resolved with MiraLAX and Colace. Patient was continued on metoprolol for hypertension. She was continued on home aspirin for history of TIA. He was continued on Seroquel at bedtime for history of depression and anxiety. She was continued on home for Carafate and was placed on Protonix here for history of gastritis. Wound was much better and no longer draining. She was cleared for discharge by surgical team and infectious disease doctor. Patient was discharged home. She was educated on cleaning and taking care of the wound at home. Importance of follow-up with her doctor was emphasized. On day of discharge, patient was feeling better. Patient was ambulating with physical therapy. Left posterior thigh wound pain improved. Patient denied any headaches or dizziness. No chest palpitations. No chest pain or shortness of breath. No fevers or chills. No dysuria. No nausea, vomiting, or abdominal pain. Patient was having bowel movements. Physical exam: General: Awake and alert, sitting up in bed in no acute distress. HEENT: Normocephalic, atraumatic, Extraocular muscles intact, pupils equal and reactive, no scleral icterus. Oropharynx is pink and moist. Neck is supple. Cardiovascular: Normal rhythm. Normal S1 and S2. No murmurs, rubs, or gallops appreciated. Pulmonary: Normal respiratory effort. No rhonchi, rales, or wheezing appreciated. Gastrointestinal: Soft. Nontender. Nondistended. Positive bowel sounds all 4 quadrants. No guarding. Musculoskeletal: Moves all extremities. No calf tenderness. No edema appreciat ed. Left posterior thigh dressing in place; dry, clean, and intact. Central nervous system: AAO x 3. CN 2-12 grossly intact. Dermatologic: Skin warm and dry. Please see chart for full details. Follow up instructions: Patient to follow-up with primary care doctor within 3-5 days. Patient to follow-up with surgeon within one week. Patient to complete antibiotics. Patient to keep wound clean and dry. Patient to participate in physical therapy as an outpatient. Patient to continue other home medications. All instructions explained to the patient in detail. Patient both understands and agrees to all instructions. Written instructions also given. Time spent in discharging the patient including chart review, medication reconciliation, discussion with the patient, medical economics consultant, consultants, and nursing staff was approximately 45 minutes.
--- NOTE | 2018-06-11 16:59 | CON ---
DATE OF CONSULTATION: 06/11/2018 HISTORY OF PRESENT ILLNESS: In short, the patient is a 72-year-old female with reported history of alcohol use disorder, history of alcohol withdrawal delirium. The patient at this time was admitted on the medical side for evaluation of lower extremities swelling as well as abscess. Psych consult was called because the patient is on psychotropic medications, and initially, the patient was scheduled for Transitional Care Unit admission. The patient is very familiar to this financial underwriter from multiple consultations on the medical side. The patient was seen and examined today. The patient presented to be alert, oriented. The patient is Lithuanian-speaking, and this financial underwriter utilized voice translation system for interpretation. Amelia, number [phone]. As per the patient, she was doing well. The patient reported that she was not drinking since February. The patient reported that her is still involved into her life. The patient reported that she was applying for this job visa for her son, who resides in [place]. The patient reported that she feels depressed that she invested a lot of money and right now the person who took money disappeared and not returning her calls. The patient reported that she never followed up with her outpatient psychiatrist because she was working. The patient reported that she feels depressed, but the patient denied any thoughts of harming herself or others. The patient reports that she does not hear any voices, does not see anything unusual. The patient was opened to go for followup appointments in the clinic. This financial underwriter provided information for local psychiatrists including [facility] as well as [facility], as well as [facility]. PHYSICAL EXAMINATION: VITAL SIGNS: The patient's vital signs are stable. Temperature 98.2, pulse 76, blood pressure 106/69, respirations 18, oxygen saturation is 98. MEDICATIONS: Reviewed. The patient is on aspirin, Colace, doxycycline, Lovenox, Motrin, Toprol, Pantoprazole, MiraLax, Seroquel was started by medical team, but we will switch it to as-needed in case of hallucinations. The patient is on Ambien 5 mg at the nighttime and sucralfate. LABORATORY DATA: Labs reviewed. Most recent was from today. No signs of leukocytosis. Microbiology reviewed. MRSA in abscess that is why the patient is on contact isolation. MENTAL STATUS EXAMINATION: The patient presented to be alert, pleasant, cooperative, intermittent eye contact. Speech was normal rate, tone, quality, and quantity. Mood described as at times depressed, and the patient said that she was feeling depressed since 5 o'clock at the morning time. The patient denied that she feels constantly depressed. The patient's thought process seems to be coherent and goal directed. Thought content, the patient denied visual, auditory, or tactile hallucinations. Denied paranoid ideation. The patient denied thoughts of harming herself or others. Denied intents or plan. Insight and judgment seemed to be fair. Impulses are well controlled. IMPRESSION: The patient claimed that she is not drinking for past 2 months, in early remission, rule out mood disorder; due to general medical condition, rule out major depressive disorder, which seems to be mild [id number], rule out adjustment disorder: PLAN: This financial underwriter provided the patient with information about outpatient clinics. The patient denied any intent or plan to kill herself. The patient is willing to follow up with outpatient providers. Seroquel was changed to as-needed, Ambien 5 mg at the nighttime, we can continue that. If the patient will be on the medical site, we will follow up on this patient tomorrow. Should you have any questions give me a call back. Thank you very much for letting me participate in the care of your patient. Pam Mathews MD
--- NOTE | 2018-06-12 09:07 | CP.PCM.PCO ---
Physician Communication Note - Physician Communication Note Physician Communication Note: pt was d/c, info about outpatient providers given.
== END 2018-06-11 20:23 | disposition home or self-care (01) | DRG 603 ==
LOC: ED 16:15 → ERH 19:30 → 5RSO 21:25 → OBSVTOIN 06-08 10:14
PROVIDERS: ADMIT Internal Medicine; ATTEND Internal Medicine
PROC: 0H9JXZZ Drainage of Left Upper Leg Skin, External Approach (ICD-10-PCS; principal; 2018-06-06)
DX: L02.416 Cutaneous abscess of left lower limb (principal); B95.62 Methicillin resistant Staphylococcus aureus infection as the cause of diseases classified elsewhere; K70.30 Alcoholic cirrhosis of liver without ascites; I10 Essential (primary) hypertension; G51.0 Bell's palsy; M81.0 Age-related osteoporosis without current pathological fracture; F41.0 Panic disorder [episodic paroxysmal anxiety]; K59.00 Constipation, unspecified; F32.9 Major depressive disorder, single episode, unspecified; K29.70 Gastritis, unspecified, without bleeding; R33.9 Retention of urine, unspecified; H40.9 Unspecified glaucoma; W57.XXXA Bitten or stung by nonvenomous insect and other nonvenomous arthropods, initial encounter; E66.9 Obesity, unspecified; Z68.34 Body mass index [BMI] 34.0-34.9, adult; Z86.73 Personal history of transient ischemic attack (TIA), and cerebral infarction without residual deficits; Z91.81 History of falling; Z87.891 Personal history of nicotine dependence

== ENCOUNTER 2018-07-26 14:48 | Emergency (ER) | payer MEDICARE, OTHER ==
[2018-07-26 15:51] VITALS: RESP 18; TEMP 98.5
[2018-07-26] MEDS ORDERED: Lidocaine 5% Patch TD STA (16:04)
--- NOTE | 2018-07-26 16:06 | ED PDOC ---
Arrival/HPI - General Chief Complaint: Back Pain Time Seen by Provider: 07/26/18 15:36 Historian: Patient, Nurse Special (ID #[id number]) - History of Present Illness Narrative History of Present Illness (Text): 07/26/18 16:05 73 year old female, with hx of hypertension, presents to the emergency department with chief complaint of sharp right sided lower back pain, exacerbated with pressure x 2 weeks. Patient reports pain radiates to her shoulders when walking and travels slightly down to her buttocks. Patient endorses alleviation of symptoms with Advil. She reports going to her doctor 4 days ago, whom she states believes she has a herniated disc. Patient reports she was put on tramadol and states she began feeling dizzy after usage. She endorses slight abdominal pain. Denies chest pain, denies fever. Time/Duration: > week Symptom Onset: Gradual Symptom Course: Unchanged Context: Home Past Medical History - Provider Review Nursing Documentation Reviewed: Yes - Infectious Disease Hx of Infectious Diseases: None - Cardiac Hx Hypertension: Yes - Pulmonary Hx Respiratory Disorders: No - Neurological HX Cerebrovascular Accident: Yes (TIA, Facial palsy) - HEENT Hx HEENT Disorder: Yes Hx Glaucoma: Yes - Renal Hx Renal Disorder: No - Endocrine/Metabolic Hx Endocrine Disorders: No - Hematological/Oncological Hx Blood Disorders: Yes Hx Cirrhosis: Yes - Integumentary Hx Dermatological Disorder: No - Musculoskeletal/Rheumatological Hx Falls: No Hx Osteoporosis: Yes - Gastrointestinal Hx Gastrointestinal Disorders: Yes (MALNUTRITION-ETOH ABUSE) - Genitourinary/Gynecological Hx Genitourinary Disorders: Yes (UTI) - Psychiatric Hx Psychophysiologic Disorder: Yes Hx Anxiety: Yes Hx Depression: Yes Hx Panic Disorder: Yes Hx Substance Use: No Other/Comment: previous alcohol use - Surgical History Hx Cholecystectomy: Yes - Anesthesia Hx Anesthesia: Yes Hx Anesthesia Reactions: No Hx Malignant Hyperthermia: No - Suicidal Assessment Feels Threatened In Home Enviroment: No Family/Social History - Physician Review Nursing Documentation Reviewed: Yes Family/Social History: Unknown Family HX Smoking Status: Never Smoked Hx Alcohol Use: Yes Amount per day: 2 Hx Substance Use: No Substance used: ALCOHOL Hx Substance Use Treatment: No Allergies/Home Meds Allergies/Adverse Reactions: Allergies No Known Allergies Allergy (Verified 04/04/18 19:03) Review of Systems - Physician Review All systems were reviewed & negative as marked: Yes - Review of Systems Constitutional: absent: Fevers Cardiovascular: absent: Chest Pain Gastrointestinal: Abdominal Pain Musculoskeletal: Back Pain (lower) Physical Exam - Physical Exam Narrative Physical Exam (Text): 07/26/18 16:04 Gen: VS reviewed, alert, well developed, well nourished, nontoxic, mild distress Eye: EOMI, PERRL Neck: no JVD, supple, no adenopathy CV: regular rate, regular rhythm, no rubs,no murmur, S1, S2 Pulm: no distress, clear to auscultation, no wheeze, no rhonchi, breath sounds equal, no rales Abd: soft, nontender, no guarding, no rebound, no rigidity Ext: no edema Skin: good color, no rash, no cyanosis Psych: responds appropriately to questions, normal affect Neuro: oriented x3, CN2-12 intact grossly, motor intact, sensation intact. Vital Signs Temp Pulse Resp BP Pulse Ox 07/26/18 15:50 98.5 F 76 18 123/90 97 Medical Decision Making ED Course and Treatment: 07/26/18 16:03 Impression: 73 year old female presents to the ED with lower back pain. Differential Diagnosis included but are not limited to: Plan: -- Reassess and disposition Prior Visits: Notes and results from previous visits were reviewed. Progress Notes: 07/26/18 19:[address] IMPRESSION: Moderate to severe degenerative changes. Abdomen/Pelvis CT IMPRESSION: No evidence of obstructing renal calculi or hyronephrosis. No evidence of acute pathology in the abdomen and pelvis. 07/26/18 19:23 full discussion with patient regarding diagnosis and discharge plan via driver messenger. - Scribe Statement The provider has reviewed the documentation as recorded by the Helio Church All medical record entries made by the Scribfidencio were at my direction and personally dictated by me. I have reviewed the chart and agree that the record accurately reflects my personal performance of the history, physical exam, medical decision making, and the department course for this patient. I have also personally directed, reviewed, and agree with the discharge instructions and disposition. Disposition/Present on Arrival - Present on Arrival Any Indicators Present on Arrival: No History of DVT/PE: No History of Uncontrolled Diabetes: No Urinary Catheter: No History of Decub. Ulcer: No History Surgical Site Infection Following: None - Disposition Have Diagnosis and Disposition been Completed?: Yes Diagnosis: Lumbar stenosis, Arthritis, lumbar spine Disposition: HOME/ ROUTINE Disposition Time: 19:24 Patient Plan: Discharge Condition: STABLE Discharge Instructions (ExitCare): Spinal Stenosis (DC) Print Language: AMHARIC Additional Instructions: you must follow up with your pain doctor further evaluation and treatment. Referrals: Sherrell Taveras MD [Primary Care Provider] - Follow up with primary Forms: [employer] (Bengali)
[2018-07-26 16:57] LABS: URINE BILIRUBIN NEGATIVE (NEGATIVE); URINE BLOOD NEGATIVE (NEGATIVE); URINE GLUCOSE (UA) NEGATIVE (NEGATIVE); URINE LEUKOCYTE ESTERASE NEGATIVE Leu/uL (NEGATIVE); URINE PROTEIN NEGATIVE mg/dL (<30 mg/dL); URINE UROBILINOGEN 0.2 E.U./dL (<1 E.U./dL)
[2018-07-26 16:58] LABS: URINE APPEARANCE CLEAR (CLEAR); URINE COLOR YELLOW (YELLOW)
[2018-07-26 17:08] LABS: BASO # 0.03 K/mm3 (0.0-2.0); BASO % 0.3 % (0.0-3.0); EOS # 0.3 (0.0-0.7); EOS % 2.9 % (1.5-5.0); HEMOGLOBIN 12.9 g/dL (12.0-16.0); LYMPH # 1.7 (1.2-3.4); MEAN CELL VOLUME 91.4 fl (80.0-105.0); MEAN CORPUSCULAR HEMOGLOBIN 29.9 pg (25.0-35.0); MEAN CORPUSCULAR HGB CONC 32.7 g/dl (31.0-37.0); MEAN PLATELET VOLUME 11.2 fl (7.0-11.0); MONO # 0.8 (0.1-0.6); RBC 4.31 10^6/uL (3.5-6.1); RED CELL DISTRIBUTION WIDTH 14.1 % (11.5-14.5); WHITE BLOOD COUNT 9.6 10^3/uL (4.5-11.0)
[2018-07-26 17:23] LABS: BLOOD UREA NITROGEN 19 mg/dL (7-21); CALCIUM 9.6 mg/dL (8.4-10.5); GFR NON-AFRICAN AMERICAN > 60
--- NOTE | 2018-07-26 18:32 | CT ---
Date of service: 07/26/2018 PROCEDURE: CT Abdomen and Pelvis without intravenous contrast HISTORY: right flank pain COMPARISON: Comparison is made to the previous study dated 03/30/2018 TECHNIQUE: Axial and reformatted coronal and sagittal CT images of the abdomen and pelvis were obtained without IV or oral contrast administration.. Contrast dose: 0 Radiation dose: Total exam DLP = 863.02 mGy-cm. This CT exam was performed using one or more of the following dose reduction techniques: Automated exposure control, adjustment of the mA and/or kV according to patient size, and/or use of iterative reconstruction technique. FINDINGS: LOWER THORAX: No evidence of acute pathology. LIVER: Hepatomegaly and findings suggestive of moderate hepatic steatosis are again noted. GALLBLADDER AND BILE DUCTS: Status post cholecystectomy. PANCREAS: Unremarkable. No gross lesion or ductal dilatation. SPLEEN: Unremarkable. ADRENALS: Unremarkable. No mass. KIDNEYS AND URETERS: No evidence of obstructing renal calculi or hydronephrosis. VASCULATURE: Unremarkable. No aortic aneurysm. Foci of atherosclerotic calcification noted in the abdominal aorta. BOWEL: Scattered colonic diverticulosis are again noted without evidence of diverticulitis. No evidence of high-grade bowel obstruction. APPENDIX: No evidence of appendicitis. PERITONEUM: Unremarkable. No free fluid. No free air. LYMPH NODES: Unremarkable. No enlarged lymph nodes. BLADDER: Unremarkable. REPRODUCTIVE: Large calcified fibroid is again noted in the uterus. BONES: No acute fracture. Advanced degenerative changes at the lower lumbar spine are again noted. OTHER FINDINGS: None. IMPRESSION: No evidence of obstructing renal calculi or hydronephrosis. No evidence of acute pathology in the abdomen and pelvis.
--- NOTE | 2018-07-26 18:50 | CT ---
Date of service: 07/26/2018 PROCEDURE: CT Lumbar Spine without contrast HISTORY: low back pain COMPARISON: None available. TECHNIQUE: Axial computed tomography images were obtained of the lumbar spine without the use of intravenous contrast. Coronal and sagittal reformatted images were created and reviewed. Radiation dose: Total exam DLP = 1694.54 mGy-cm. This CT exam was performed using one or more of the following dose reduction techniques: Automated exposure control, adjustment of the mA and/or kV according to patient size, and/or use of iterative reconstruction technique. FINDINGS: VERTEBRAE: Unremarkable. No fracture. Normal alignment. DISCS/SPINAL CANAL/NEURAL FORAMINA: L1-2: There is a small osteophyte bulging disc without evidence of significant spinal or neural foraminal narrowing. L2-3: Small bowels disc associated with posterior ligament and facet joint hypertrophy which resulting in mild spinal stenosis. L3-4: Small bulge disc associated with posterior ligament and facet joint hypertrophy which resulting in mild spinal stenosis. L4-5: Osteophyte disc protrusion/herniation associated with significant posterior ligament and facet joint hypertrophy which resulting in moderate to mildly severe spinal and neural foraminal narrowing. Severe endplate degenerative changes are also noted at this level. L5-S1: Osteophyte disc bulge associated with mild posterior ligament hypertrophy which resulting in mild spinal stenosis. Diffuse arthritic degenerative changes noted. Multilevel moderate to severe narrowing of the intervertebral disc is spaces noted. PARASPINAL SOFT TISSUES: Calcified fibroid in the uterus is noted. OTHER FINDINGS: None. IMPRESSION: Moderate to severe degenerative changes. Osteophyte disc protrusion/herniation at L4-L5 associated with posterior ligament and facet joint hypertrophy which resulting in moderate to severe spinal and neural foraminal narrowing.
[2018-07-26 18:58] VITALS: BP 124/80
[2018-07-26 19:44] VITALS: PULSE 80; O2SAT 98
== END 2018-07-26 19:48 | disposition home or self-care (01) ==
LOC: ED 14:48
DX: M48.061 Spinal stenosis, lumbar region without neurogenic claudication (principal); M46.96 Unspecified inflammatory spondylopathy, lumbar region; I10 Essential (primary) hypertension; Z86.73 Personal history of transient ischemic attack (TIA), and cerebral infarction without residual deficits; M81.0 Age-related osteoporosis without current pathological fracture
CPT/HCPCS: 72131; 74176; 80048; 81003; 85025; 96374; 99284; J1885

== ENCOUNTER 2018-07-31 15:24 | Outpatient (CLI) | payer MEDICARE, OTHER | END 2018-07-31 15:25 | disposition home or self-care (01) | LOC: RAD 15:24 | DX: M54.5 Low back pain (principal) ==